=== PATIENT | male | born 1935 | race Caucasian/White ===

== ENCOUNTER 2020-06-20 10:22 | Outpatient (REF) | payer MEDICARE, SELFPAY | END 2020-06-20 10:23 | disposition home or self-care (01) | LOC: HO.LAB 10:22 | PROVIDERS: PCP Family Medicine; Visit Provider Internal Medicine | DX: Z20.828 Contact with and (suspected) exposure to other viral communicable diseases (principal) | CPT/HCPCS: C9803; U0003 ==

== ENCOUNTER → 2020-08-19 13:49 | Outpatient (BNVA) | payer MEDICARE, SELFPAY | PROVIDERS: Visit Provider Orthopaedic Surgery | DX: M25.562 Pain in left knee (principal); M25.561 Pain in right knee | CPT/HCPCS: 20610; 99212; J1040 ==

== ENCOUNTER → 2020-09-02 13:49 | Outpatient (BNVA) | payer MEDICARE, SELFPAY | PROVIDERS: PCP Family Medicine; Visit Provider Orthopaedic Surgery | DX: M25.561 Pain in right knee (principal) | CPT/HCPCS: 20610; 99212; J1040 ==

== ENCOUNTER 2022-08-23 12:19 | Emergency (ER) | payer MEDICARE, SELFPAY ==
--- NOTE | ~2022-08-23 | CT_ITS ---
EXAMINATION: CT HEAD WITHOUT CONTRAST CLINICAL INFORMATION: Dizziness off-and-on since last night COMPARISON: Head CT 12/14/2017 TECHNIQUE: Imaging was performed from the skull base to vertex without intravenous administration of contrast. This CT examination was performed using dose optimization techniques as appropriate, variously including the following: *Automated exposure control *Adjustment of mA and/or kV according to patient size (this includes techniques or standardized protocols for targeted exams where dose is matched to indication/reason for exam; i.e. extremities or head) *Use of iterative reconstruction technique Total exam dose length product: 609 mGy-cm FINDINGS: No intra or extra-axial fluid collection, hemorrhage, or mass. No ventriculomegaly. No midline shift or herniation. Basal cisterns are patent. Dominguez-white matter differentiation is maintained. No territorial encephalomalacia. Proportional prominence of the ventricles and sulcal spaces is consistent with mild volume loss. There is mild nonspecific periventricular white matter hypoattenuation bilaterally. No calvarial fracture or soft tissue abnormality. Partial opacification of a few left mastoid air cells, nonspecific. Right mastoid air cells and paranasal sinuses are normally aerated. CT/CT head/brain wo IV con IMPRESSION: No acute intracranial pathology.
[2022-08-23 12:33] VITALS: BP 145/83; PULSE 99; RESP 18; TEMP 36.6; O2SAT 100; BMI 27.8
--- NOTE | 2022-08-23 12:42 | ECG_ITS ---
Test Reason : DIZZINESS Blood Pressure : / mmHG Vent. Rate : 096 BPM Atrial Rate : 096 BPM P-R Int : 166 ms QRS Dur : 066 ms QT Int : 342 ms P-R-T Axes : 053 001 032 degrees QTc Int : 432 ms Normal sinus rhythm Septal infarct , age undetermined Cannot rule out Inferior infarct , age undetermined Abnormal ECG When compared with ECG of 14-DEC-2017 22:52, Premature atrial complexes are no longer Present Septal infarct is now Present Referred By: Dominic Barrera Electronically Signed By:PETER LOPEZ MD
--- NOTE | 2022-08-23 12:43 | ED_ITS ---
HPI - General Adult General Chief complaint: Dizziness Stated complaint: Ear issues Time Seen by Provider: 08/23/22 17:04 Related Data Home Medications Medication Instructions Recorded Confirmed alcohol swabs (Alcohol Prep Pads) 0 pad topical 04/12/22 amlodipine 5 mg tablet 5 mg PO DAILY 04/12/22 aspirin 81 mg tablet,delayed 81 mg PO DAILY 04/12/22 release atorvastatin 20 mg tablet 20 mg PO DAILY 04/12/22 blood sugar diagnostic (FreeStyle #10 ea 04/12/22 Lite Strips) ferrous sulfate 325 mg (65 mg 325 mg PO DAILY 04/12/22 iron) tablet (FeroSul) imipramine HCl 10 mg tablet 10 mg PO BEDTIME 04/12/22 lancets 33 gauge (TRUEplus Lancets) #100 ea 04/12/22 lisinopril 40 mg tablet 40 mg PO DAILY 04/12/22 metformin 1,000 mg tablet 1,000 mg PO QPM 04/12/22 mirabegron 50 mg tablet,extended 50 mg PO DAILY 04/12/22 release 24 hr (Myrbetriq) omeprazole 20 mg capsule,delayed 20 mg PO DAILY PRN 04/12/22 release oxybutynin chloride 5 mg 5 mg PO BEDTIME 04/12/22 tablet,extended release 24 hr pioglitazone 45 mg tablet 45 mg PO DAILY 04/12/22 Previous Rx's Medication Instructions Recorded meclizine 25 mg tablet 25 mg PO BID PRN dizziness #20 tabs 08/23/22 [id number]-ilsvfs-[id number]-thonzonm 3.3 4 drp otic (ears) TID #10 mL 08/23/22 mg-3 mg-10 mg-0.5 mg/mL ear drops,susp (Cortisporin-TC) Allergies Allergy/AdvReac Type Severity Reaction Status Date / Time oxycodone [From Percocet] AdvReac Mild VOMITING/DI Verified 04/12/22 10:49 MATEUSZ percocet Allergy Unknown nausea/dizz Uncoded 04/12/22 10:49 destiny [facility] Past Medical History Medical History Choledocholithiasis Chronic anemia Diabetes mellitus Diverticulosis HTN (hypertension) Hypercholesterolemia Neurogenic bladder Prostate cancer Renal cyst Tubular adenoma of colon Surgical History H/O prostatectomy History of colonoscopy History of hernia surgery Social History Social History Advance Directives: No Advance Directives Information Provided: No Current occupational status: retired Current occupation: right handed Physical Exam ED Vital Signs: Vital Signs - 24 hr 08/23/22 12:33 Temperature 97.9 F Pulse Rate 99 Respiratory Rate 18 Blood Pressure 145/83 H Pulse Oximetry 100 Oxygen Delivery Method Room Air BMI result Body Mass Index 27.8 Course Course Course Narrative: RME: 86 yold presents to the ED for ringing in both ears with dizziness described as room spinning since last night. patient states having this off and on for the past 4 months. patient states no slurred speech, facial droop, paralysis of extremites. Both Ear exam shows small amount of cerumen besides that is normal. negative for any neuro deficits. negative rhomberg. no ataxia. presently no dizziness. due to age head CT scan, EkG, and labs ordered. Medical Decision Making Lab Data 08/23/22 16:22 08/23/22 16:22 Labs: Lab Results 08/23/22 08/23/22 08/23/22 Range/Units 16:22 16:22 16:22 WBC 8.0 (4.8-10.8) X10*3/uL RBC 4.49 L (4.60-5.80) X10*6/uL Hgb 12.4 L (14.0-18.0) g/dl Hct 37.7 L (42.0-52.0) % MCV 84.0 (80.0-98.0) fL MCH 27.6 (27.0-33.0) pg MCHC 32.9 (31.0-36.0) g/dl RDW 15.6 (11.0-16.0) % Plt Count 241 (160-400) X10*3/uL MPV 10.0 (9.4-12.4) fL Immature Gran % (Auto) 0.3 (0.0-0.4) % Neut % (Auto) 69.2 (45-73) % Lymph % (Auto) 22.9 (20-40) % Saline % (Auto) 7.0 (2-11) % Eos % (Auto) 0.3 (0-4) % Baso % (Auto) 0.3 (0-2) % Lymph # (Auto) 1.8 (1.2-4.9) X10*3/uL Saline # (Auto) 0.6 (0.1-1.2) X10*3/uL Eos # (Auto) 0.0 (0.0-0.4) X10*3/uL Baso # (Auto) 0.0 (0.0-0.2) X10*3/uL Abs Immat Gran (auto) 0.02 (0.00-0.03) X10*3/uL Absolute Neuts (auto) 5.5 (2.0-8.3) x10*3/uL Absolute Nucleated RBC 0.000 (0.0-0.012) X10*3/uL Nucleated RBC % (auto) 0.0 (0.0-0.2) /100WBC PT 10.5 (10.0-13.1) SEC INR 0.9 (0.9-1.1) APTT 31.5 (26.0-36.4) SEC Sodium 142 (135-145) mmol/L Potassium 4.5 (3.3-5.1) mmol/L Chloride 108 (96-108) mmol/L Carbon Dioxide 27 (22-29) mmol/L Anion Gap 12 (12-20) BUN 21 H (9-16) mg/dL Creatinine 1.01 (0.5-1.4) mg/dL Estim Creat Clear Calc 48.2 Estimated GFR > 60 Random Glucose 104 (60-115) mg/dL Calcium 9.4 (8.4-10.2) mg/dL Total Bilirubin 0.9 (0.0-1.0) mg/dL AST 14 (5-37) U/L ALT 12 (0-40) U/L Alkaline Phosphatase 100 (39-117) U/L Troponin I High Sens (<3.5-35.0) ng/L Total Protein 6.6 (6.5-8.0) g/dL Albumin 4.2 (3.5-5.0) g/dL 08/23/22 Range/Units 16:22 WBC (4.8-10.8) X10*3/uL RBC (4.60-5.80) X10*6/uL Hgb (14.0-18.0) g/dl Hct (42.0-52.0) % MCV (80.0-98.0) fL MCH (27.0-33.0) pg MCHC (31.0-36.0) g/dl RDW (11.0-16.0) % Plt Count (160-400) X10*3/uL MPV (9.4-12.4) fL Immature Gran % (Auto) (0.0-0.4) % Neut % (Auto) (45-73) % Lymph % (Auto) (20-40) % Saline % (Auto) (2-11) % Eos % (Auto) (0-4) % Baso % (Auto) (0-2) % Lymph # (Auto) (1.2-4.9) X10*3/uL Saline # (Auto) (0.1-1.2) X10*3/uL Eos # (Auto) (0.0-0.4) X10*3/uL Baso # (Auto) (0.0-0.2) X10*3/uL Abs Immat Gran (auto) (0.00-0.03) X10*3/uL Absolute Neuts (auto) (2.0-8.3) x10*3/uL Absolute Nucleated RBC (0.0-0.012) X10*3/uL Nucleated RBC % (auto) (0.0-0.2) /100WBC PT (10.0-13.1) SEC INR (0.9-1.1) APTT (26.0-36.4) SEC Sodium (135-145) mmol/L Potassium (3.3-5.1) mmol/L Chloride (96-108) mmol/L Carbon Dioxide (22-29) mmol/L Anion Gap (12-20) BUN (9-16) mg/dL Creatinine (0.5-1.4) mg/dL Estim Creat Clear Calc Estimated GFR Random Glucose (60-115) mg/dL Calcium (8.4-10.2) mg/dL Total Bilirubin (0.0-1.0) mg/dL AST (5-37) U/L ALT (0-40) U/L Alkaline Phosphatase (39-117) U/L Troponin I High Sens < 3.5 (<3.5-35.0) ng/L Total Protein (6.5-8.0) g/dL Albumin (3.5-5.0) g/dL Discharge Plan Discharge Clinical Impression: Benign paroxysmal positional vertigo Patient Disposition: Home, Self-Care Instructions: Benign Paroxysmal Positional Vertigo (ED) Additional Instructions: Follow-up with your nose and throat. Call your doctor for follow-up as well. Ear drops are for dryness in your ear canal. The pills are for dizziness Prescriptions: New meclizine 25 mg tablet 25 mg PO BID PRN (Reason: dizziness) Qty: 20 0RF Cortisporin-TC 3.3-3-10-0.5 mg/mL drops,suspension 4 drp otic (ears) TID Qty: 10 0RF No Action imipramine HCl 10 mg tablet 10 mg PO BEDTIME aspirin 81 mg tablet,delayed release (DR/EC) 81 mg PO DAILY amlodipine 5 mg tablet 5 mg PO DAILY (DME) lancets [TRUEplus Lancets] 33 gauge misc See Rx Instructions .ROUTE .MEDSUPPLY Qty: 100 Rx Instructions: As directed alcohol swabs [Alcohol Prep Pads] Pads, Medicated 0 pad topical (DME) FreeStyle Lite Strips Strip See Rx Instructions .ROUTE .MEDSUPPLY Qty: 10 Rx Instructions: As directed atorvastatin 20 mg tablet 20 mg PO DAILY omeprazole 20 mg capsule,delayed release(DR/EC) 20 mg PO DAILY PRN metformin 1,000 mg tablet 1,000 mg PO QPM ferrous sulfate [FeroSul] 325 mg (65 mg iron) tablet 325 mg PO DAILY pioglitazone 45 mg tablet 45 mg PO DAILY lisinopril 40 mg tablet 40 mg PO DAILY Myrbetriq 50 mg tablet extended release 24 hr 50 mg PO DAILY oxybutynin chloride 5 mg tablet extended release 24hr 5 mg PO BEDTIME Referrals: Jossue Morales MD [Physician] - Interventions: ED Discharge Assessment Last Done: 08/23/22 17:38 Discharge Date/Time: 08/23/22 17:40
--- NOTE | 2022-08-23 13:44 | MHC.EDTECH ---
covering tech break in triage. EKG completed at this time
[2022-08-23 16:31] LABS: MANUAL DIFF FLAG NO
[2022-08-23 16:36] LABS: Basophils Percent Auto 0.3 % (0-2); Eosinophils Percent Auto 0.3 % (0-4); Hematocrit 37.7 % (42.0-52.0); Hemoglobin 12.4 g/dl (14.0-18.0); Imm Gran Abs Auto 0.02 X10*3/uL (0.00-0.03); Imm Gran Pct Auto 0.3 % (0.0-0.4); Lymphocytes Absolute Auto 1.8 X10*3/uL (1.2-4.9); Lymphocytes Percent Auto 22.9 % (20-40); Mean Corpuscular HGB Conc 32.9 g/dl (31.0-36.0); Mean Corpuscular Hemoglobin 27.6 pg (27.0-33.0); Monocytes Absolute Auto 0.6 X10*3/uL (0.1-1.2); Neutrophils Absolute Auto 5.5 x10*3/uL (2.0-8.3); Neutrophils Percent Auto 69.2 % (45-73); Platelet Count 241 X10*3/uL (160-400); Red Blood Count 4.49 X10*6/uL (4.60-5.80); Red Cell Distribution Width 15.6 % (11.0-16.0)
[2022-08-23 16:43] LABS: INTERNATIONAL NORM RATIO 0.9 (0.9-1.1); Prothrombin Time 10.5 SEC (10.0-13.1)
[2022-08-23 16:46] LABS: Partial Thromboplastin Time 31.5 SEC (26.0-36.4)
[2022-08-23 16:52] LABS: Alanine Aminotransferase 12 U/L (0-40); Albumin Level 4.2 g/dL (3.5-5.0); Alkaline Phosphatase 100 U/L (39-117); Anion Gap 12 (12-20); Aspartate Amino Transferase 14 U/L (5-37); Bilirubin Total 0.9 mg/dL (0.0-1.0); Blood Urea Nitrogen 21 mg/dL (9-16); Calcium 9.4 mg/dL (8.4-10.2); Carbon Dioxide 27 mmol/L (22-29); Chloride 108 mmol/L (96-108); Creatinine Clr Calc Pharmacy 48.2; Estimated Glomerular Filt Rate > 60; Glucose Random 104 mg/dL (60-115); Potassium 4.5 mmol/L (3.3-5.1); Sodium 142 mmol/L (135-145); Total Protein 6.6 g/dL (6.5-8.0)
[2022-08-23 17:02] LABS: Troponin-I High Sensitivity < 3.5 ng/L (<3.5-35.0)
--- NOTE | 2022-08-23 17:22 | ED.DIZZY ---
HPI - Dizziness General Chief Complaint: Dizziness Stated Complaint: Ear issues Time Seen by Provider: 08/23/22 17:04 Source: patient and old records reviewed Limitations: no limitations History of Present Illness HPI Narrative: Patient complaining of dizziness. He states currently is asymptomatic but this morning he felt very dizzy. He describes it is the world spinning. Very off balance. No nausea associated with this. He does hear pulsating in both ears when it happens. He believes it all started intermittently a year and a half ago. At that time he said a small insect crawl into his left ear. He went to the ER in [place] and they removed it. Since that time he occasionally gets the symptoms. He has seen specialists in the past, not around here, who prescribed ear drops which seemed to have helped. He does not have any of those medications now. He lives in [place] now he goes to [facility]. He does not have an ear nose and throat physician. No headache. No history of stroke. History of hypertension and diabetes however. Related Data Home Medications Medication Instructions Recorded Confirmed alcohol swabs (Alcohol Prep Pads) 0 pad topical 04/12/22 amlodipine 5 mg tablet 5 mg PO DAILY 04/12/22 aspirin 81 mg tablet,delayed 81 mg PO DAILY 04/12/22 release atorvastatin 20 mg tablet 20 mg PO DAILY 04/12/22 blood sugar diagnostic (FreeStyle #10 ea 04/12/22 Lite Strips) ferrous sulfate 325 mg (65 mg 325 mg PO DAILY 04/12/22 iron) tablet (FeroSul) imipramine HCl 10 mg tablet 10 mg PO BEDTIME 04/12/22 lancets 33 gauge (TRUEplus Lancets) #100 ea 04/12/22 lisinopril 40 mg tablet 40 mg PO DAILY 04/12/22 metformin 1,000 mg tablet 1,000 mg PO QPM 04/12/22 mirabegron 50 mg tablet,extended 50 mg PO DAILY 04/12/22 release 24 hr (Myrbetriq) omeprazole 20 mg capsule,delayed 20 mg PO DAILY PRN 04/12/22 release oxybutynin chloride 5 mg 5 mg PO BEDTIME 04/12/22 tablet,extended release 24 hr pioglitazone 45 mg tablet 45 mg PO DAILY 04/12/22 Previous Rx's Medication Instructions Recorded meclizine 25 mg tablet 25 mg PO BID PRN dizziness #20 tabs 08/23/22 zyuppopa-[id number]-[id number]-thonzonm 3.3 4 drp otic (ears) TID #10 mL 08/23/22 mg-3 mg-10 mg-0.5 mg/mL ear drops,susp (Cortisporin-TC) Allergies Allergy/AdvReac Type Severity Reaction Status Date / Time oxycodone [From Percocet] AdvReac Mild VOMITING/DI Verified 04/12/22 10:49 MATEUSZ percocet Allergy Unknown nausea/dizz Uncoded 04/12/22 10:49 iness Review of Systems Constitutional: Comments: No recent fevers chills or illnesses Eyes: Comments: No vision changes ENT: Comments: No ear pain but he does have pulsing in his ears when he feels dizzy. None now Cardiovascular: Comments: No chest pain Respiratory: Comments: No dyspnea or cough Gastrointestinal: Comments: No nausea associated with his dizziness Neurologic: Comments: No focal weaknesses PMFSH Past Medical History Medical History Choledocholithiasis Chronic anemia Diabetes mellitus Diverticulosis HTN (hypertension) Hypercholesterolemia Neurogenic bladder Prostate cancer Renal cyst Tubular adenoma of colon Surgical History H/O prostatectomy History of colonoscopy History of hernia surgery Social History Social History Advance Directives: No Advance Directives Information Provided: No Current occupational status: retired Current occupation: right handed Physical Exam Vital Signs: Vital Signs: Last Vital Signs Temp 97.9 F 08/23/22 12:33 Pulse 99 08/23/22 12:33 Resp 18 08/23/22 12:33 BP 145/83 H 08/23/22 12:33 Pulse Ox 100 08/23/22 12:33 O2 Del Method 08/23/22 12:33 BMI result Body Mass Index 27.8 Const: Other: Awake alert. No acute distress. Ambulates without difficulty. HEENT: Other: Normocephalic atraumatic. Bilateral TMs are normal. Left ear canal with mild excoriations and dry skin. No obvious infection, otitis externa however. Eyes: Other: Pupils equal round reactive to light. Extraocular muscles intact. No nystagmus on lateral gaze Neck: Other: Full range of motion. No dizziness at this time with head movement Resp: Other: Clear and equal bilaterally without wheezes rales or rhonchi Cardio: Other: Regular rate and rhythm without murmurs rubs or gallops GI: Other: Soft nontender nondistended Skin: Other: Warm pink and dry without rash Neuro: Other: Ambulates without difficulty. Wkhgdz-dn-[id number] exam is intact. Mild Babinski's with feet together. Feels off-balance but does not stagger Medical Decision Making Medical Decision Making MDM Narrative: Patient with dizziness consistent with vertigo. Although peripheral vertigo most likely, especially with associated ear symptoms, he is certainly at risk for central cause given age, diabetes, hypertension. Will review full workup. 17:27. CT scan is normal. Labs are unremarkable. EKG without evidence of dysrhythmia or acute ischemia Given history, I think it is safe for him to go home with peripheral vertigo treatment. PCP and ENT follow-up. Lab Data 08/23/22 16:22 08/23/22 16:22 Labs: Lab Results 08/23/22 08/23/22 08/23/22 Range/Units 16:22 16:22 16:22 WBC 8.0 (4.8-10.8) X10*3/uL RBC 4.49 L (4.60-5.80) X10*6/uL Hgb 12.4 L (14.0-18.0) g/dl Hct 37.7 L (42.0-52.0) % MCV 84.0 (80.0-98.0) fL MCH 27.6 (27.0-33.0) pg MCHC 32.9 (31.0-36.0) g/dl RDW 15.6 (11.0-16.0) % Plt Count 241 (160-400) X10*3/uL MPV 10.0 (9.4-12.4) fL Immature Gran % (Auto) 0.3 (0.0-0.4) % Neut % (Auto) 69.2 (45-73) % Lymph % (Auto) 22.9 (20-40) % Hanson % (Auto) 7.0 (2-11) % Eos % (Auto) 0.3 (0-4) % Baso % (Auto) 0.3 (0-2) % Lymph # (Auto) 1.8 (1.2-4.9) X10*3/uL Hanson # (Auto) 0.6 (0.1-1.2) X10*3/uL Eos # (Auto) 0.0 (0.0-0.4) X10*3/uL Baso # (Auto) 0.0 (0.0-0.2) X10*3/uL Abs Immat Gran (auto) 0.02 (0.00-0.03) X10*3/uL Absolute Neuts (auto) 5.5 (2.0-8.3) x10*3/uL Absolute Nucleated RBC 0.000 (0.0-0.012) X10*3/uL Nucleated RBC % (auto) 0.0 (0.0-0.2) /100WBC PT 10.5 (10.0-13.1) SEC INR 0.9 (0.9-1.1) APTT 31.5 (26.0-36.4) SEC Sodium 142 (135-145) mmol/L Potassium 4.5 (3.3-5.1) mmol/L Chloride 108 (96-108) mmol/L Carbon Dioxide 27 (22-29) mmol/L Anion Gap 12 (12-20) BUN 21 H (9-16) mg/dL Creatinine 1.01 (0.5-1.4) mg/dL Estim Creat Clear Calc 48.2 Estimated GFR > 60 Random Glucose 104 (60-115) mg/dL Calcium 9.4 (8.4-10.2) mg/dL Total Bilirubin 0.9 (0.0-1.0) mg/dL AST 14 (5-37) U/L ALT 12 (0-40) U/L Alkaline Phosphatase 100 (39-117) U/L Troponin I High Sens (<3.5-35.0) ng/L Total Protein 6.6 (6.5-8.0) g/dL Albumin 4.2 (3.5-5.0) g/dL 08/23/22 Range/Units 16:22 WBC (4.8-10.8) X10*3/uL RBC (4.60-5.80) X10*6/uL Hgb (14.0-18.0) g/dl Hct (42.0-52.0) % MCV (80.0-98.0) fL MCH (27.0-33.0) pg MCHC (31.0-36.0) g/dl RDW (11.0-16.0) % Plt Count (160-400) X10*3/uL MPV (9.4-12.4) fL Immature Gran % (Auto) (0.0-0.4) % Neut % (Auto) (45-73) % Lymph % (Auto) (20-40) % Hanson % (Auto) (2-11) % Eos % (Auto) (0-4) % Baso % (Auto) (0-2) % Lymph # (Auto) (1.2-4.9) X10*3/uL Hanson # (Auto) (0.1-1.2) X10*3/uL Eos # (Auto) (0.0-0.4) X10*3/uL Baso # (Auto) (0.0-0.2) X10*3/uL Abs Immat Gran (auto) (0.00-0.03) X10*3/uL Absolute Neuts (auto) (2.0-8.3) x10*3/uL Absolute Nucleated RBC (0.0-0.012) X10*3/uL Nucleated RBC % (auto) (0.0-0.2) /100WBC PT (10.0-13.1) SEC INR (0.9-1.1) APTT (26.0-36.4) SEC Sodium (135-145) mmol/L Potassium (3.3-5.1) mmol/L Chloride (96-108) mmol/L Carbon Dioxide (22-29) mmol/L Anion Gap (12-20) BUN (9-16) mg/dL Creatinine (0.5-1.4) mg/dL Estim Creat Clear Calc Estimated GFR Random Glucose (60-115) mg/dL Calcium (8.4-10.2) mg/dL Total Bilirubin (0.0-1.0) mg/dL AST (5-37) U/L ALT (0-40) U/L Alkaline Phosphatase (39-117) U/L Troponin I High Sens < 3.5 (<3.5-35.0) ng/L Total Protein (6.5-8.0) g/dL Albumin (3.5-5.0) g/dL Discharge Plan Discharge Clinical Impression: Benign paroxysmal positional vertigo Patient Disposition: Home, Self-Care Instructions: Benign Paroxysmal Positional Vertigo (ED) Additional Instructions: Follow-up with your nose and throat. Call your doctor for follow-up as well. Ear drops are for dryness in your ear canal. The pills are for dizziness Prescriptions: New meclizine 25 mg tablet 25 mg PO BID PRN (Reason: dizziness) Qty: 20 0RF Cortisporin-TC 3.3-3-10-0.5 mg/mL drops,suspension 4 drp otic (ears) TID Qty: 10 0RF No Action imipramine HCl 10 mg tablet 10 mg PO BEDTIME aspirin 81 mg tablet,delayed release (DR/EC) 81 mg PO DAILY amlodipine 5 mg tablet 5 mg PO DAILY (DME) lancets [TRUEplus Lancets] 33 gauge misc See Rx Instructions .ROUTE .MEDSUPPLY Qty: 100 Rx Instructions: As directed alcohol swabs [Alcohol Prep Pads] Pads, Medicated 0 pad topical (DME) FreeStyle Lite Strips Strip See Rx Instructions .ROUTE .MEDSUPPLY Qty: 10 Rx Instructions: As directed atorvastatin 20 mg tablet 20 mg PO DAILY omeprazole 20 mg capsule,delayed release(DR/EC) 20 mg PO DAILY PRN metformin 1,000 mg tablet 1,000 mg PO QPM ferrous sulfate [FeroSul] 325 mg (65 mg iron) tablet 325 mg PO DAILY pioglitazone 45 mg tablet 45 mg PO DAILY lisinopril 40 mg tablet 40 mg PO DAILY Myrbetriq 50 mg tablet extended release 24 hr 50 mg PO DAILY oxybutynin chloride 5 mg tablet extended release 24hr 5 mg PO BEDTIME Referrals: Jossue Morales MD [Physician] -
== END 2022-08-23 17:40 | disposition home or self-care (01) ==
PROVIDERS: Physician Assistant; Emergency Provider Emergency Medicine; PCP Family Medicine
DX: H81.10 Benign paroxysmal vertigo, unspecified ear (principal); H60.92 Unspecified otitis externa, left ear; I10 Essential (primary) hypertension; E11.9 Type 2 diabetes mellitus without complications; E78.5 Hyperlipidemia, unspecified; D64.9 Anemia, unspecified; Z79.82 Long term (current) use of aspirin; Z79.02 Long term (current) use of antithrombotics/antiplatelets; Z79.899 Other long term (current) drug therapy; Z79.84 Long term (current) use of oral hypoglycemic drugs; Z85.46 Personal history of malignant neoplasm of prostate
CPT/HCPCS: 36415; 70450; 80053; 84484; 85025; 85610; 85730; 93005; 99283; 99284

== ENCOUNTER 2022-11-03 12:52 | Emergency (ER) | payer MEDICARE, SELFPAY ==
--- NOTE | ~2022-11-03 | CT_ITS ---
EXAMINATION: CT ABDOMEN AND PELVIS WITHOUT CONTRAST CLINICAL INFORMATION: Pain of right lower abdomen. COMPARISON: 08/13/2015 TECHNIQUE: Multidetector volumetric imaging was performed from the superior aspect of the liver through the pubic symphysis. Sagittal and coronal reformatted images were obtained on the technologist's workstation. This CT examination was performed using dose optimization techniques as appropriate, variously including the following: *Automated exposure control *Adjustment of mA and/or kV according to patient size (this includes techniques or standardized protocols for targeted exams where dose is matched to indication/reason for exam; i.e. extremities or head) *Use of iterative reconstruction technique DLP: 479 mGy-cm FINDINGS: LUNG BASES: Mild respiratory motion on images the bases. The bronchial ramirez appear to be mildly thickened within lower lobes. No pulmonary consolidation or pleural effusion. LIVER: The liver has normal size, shape, and attenuation. No evidence of liver mass. GALLBLADDER AND BILIARY TREE: Gallbladder is surgically absent. No dilated bile ducts. PANCREAS: Mildly atrophied. There is subtle haziness of fat adjacent to the inferior pancreatic head and this observation is too subtle for any confident imaging diagnosis of pancreatitis. Pancreatitis is considered unlikely. However, there is any epigastric pain, consider correlation with lipase levels. Minimal edema is seen in other areas of abdominal fat, and there is trace free fluid in the pelvis. SPLEEN: Normal. ADRENAL GLANDS: Normal. KIDNEYS AND URETERS: Kidneys are normal in size. No renal stones or hydronephrosis. 2.2 cm simple cyst of the left kidney. No renal imaging follow-up is recommended for a simple cyst. The ureters are unremarkable. There is mild edema of perinephric fat. BLADDER: Urinary bladder is empty and grossly normal. No bladder stones. BOWEL AND PERITONEUM: No dilated loops of bowel. No evidence of edematous thickening of bowel ramirez. The appendix is normal. Multiple diverticula of the descending and sigmoid colon. However, no thick-walled diverticulum or focal pericolonic fat stranding is identified. No pneumoperitoneum. ABDOMINAL WALL: Unremarkable. VASCULATURE: Atherosclerosis of the abdominal aorta without aneurysm. LYMPH NODES: No pathologic sized lymph nodes in the abdomen or pelvis. No inguinal lymphadenopathy. PELVIC VISCERA: Status post prostatectomy. Multiple surgical clips are present within the pelvis. Trace amount of simple-appearing free fluid is present within the lower pelvis. MUSCULOSKELETAL: Bones appear to be diffusely osteoporotic. There is an old compression fracture of L3 vertebral body which exhibits approximately 40% anterior height loss and the compression deformity of the inferior endplate has worsened compared to 11/01/2018. There is moderate disc degenerative change with vacuum disc phenomenon at L5-S1. No suspicious bone lesions. CT/CT abdomen pelvis wo IV con IMPRESSION: * No specific source of right lower quadrant pain is identified. The appendix is normal. * Colonic diverticulosis without evidence of acute diverticulitis. * No renal stones or hydronephrosis. * Other findings include regions of subtle haziness of intraperitoneal fat, mild perinephric edema, and trace free fluid in the pelvis. Also, there is subtle haziness of retroperitoneal fat adjacent to the inferior pancreatic head. The cause of the fat haziness and trace free fluid is uncertain. The patient does not appear to be in congestive heart failure. No edematous changes within subcutaneous tissue or pleural effusions to overtly suggest anasarca.
[2022-11-03 12:56] VITALS: BP 138/65; PULSE 103; RESP 18; TEMP 36.1; O2SAT 97; BMI 28.3
--- NOTE | 2022-11-03 13:00 | ED.ABDPAIN ---
HPI - Abdominal Pain General Chief Complaint: Abdominal Pain <Nelly Thompson NP - Last Filed: 11/03/22 13:03> Stated Complaint: R side/abd pain <Nelly Thompson NP - Last Filed: 11/03/22 13:03> Time Seen by Provider: 11/03/22 14:25 <Nelly Thompson NP - Last Filed: 11/03/22 13:03> Source: patient <TELMA Dfufy - Last Filed: 11/03/22 16:25> Mode of arrival: ambulatory <TELMA Duffy Last Filed: 11/03/22 16:25> Limitations: no limitations <TELMA Duffy Last Filed: 11/03/22 16:25> History of Present Illness HPI narrative: 86-year-old male with a history of prostate cancer, neurogenic bladder, recently diagnosed UTI last week started on Keflex who presents to the ER for evaluation of right lower quadrant pain, intermittent for the last couple of days. Patient states that he 1st had the pain when he took the Keflex. He thought the pain was directly related to the antibiotic so he stopped taking the antibiotic. He states the pain in the right lower quadrant is worse with movement it is intermittent. He was recently constipated and also thinks the pain may be related to that. He took laxatives and had 4 good bowel movement since then. He denies any fevers. No vomiting. <TELMA Duffy - Last Filed: 11/03/22 16:25> MD elicited complaint: abdominal pain <TELMA Duffy Last Filed: 11/03/22 16:25> Pertinent past history: past UTI <TELMA Duffy Last Filed: 11/03/22 16:25> Onset (ago): day(s) <TELMA Duffy Last Filed: 11/03/22 16:25> Pain Consistency: constant <TELMA Duffy Last Filed: 11/03/22 16:25> Location: RLQ <TEMLA Duffy Last Filed: 11/03/22 16:25> Severity: moderate <TELMA Duffy Last Filed: 11/03/22 16:25> Quality: aching <TELMA Duffy - Last Filed: 11/03/22 16:25> Radiation: none <TELMA Duffy - Last Filed: 11/03/22 16:25> Migration to: no migration <TELMA Duffy - Last Filed: 11/03/22 16:25> Exacerbating factors: movement <TELMA Duffy - Last Filed: 11/03/22 16:25> Context: history of similar episodes <TELMA Duffy - Last Filed: 11/03/22 16:25> Associated symptoms: constipation <TELMA Duffy - Last Filed: 11/03/22 16:25> Related Data Home Medications: Home Medications Medication Instructions Recorded Confirmed alcohol swabs (Alcohol Prep Pads) 0 pad topical 04/12/22 amlodipine 5 mg tablet 5 mg PO DAILY 04/12/22 aspirin 81 mg tablet,delayed 81 mg PO DAILY 04/12/22 release atorvastatin 20 mg tablet 20 mg PO DAILY 04/12/22 blood sugar diagnostic (FreeStyle #10 ea 04/12/22 Lite Strips) ferrous sulfate 325 mg (65 mg 325 mg PO DAILY 04/12/22 iron) tablet (FeroSul) imipramine HCl 10 mg tablet 10 mg PO BEDTIME 04/12/22 lancets 33 gauge (TRUEplus Lancets) #100 ea 04/12/22 lisinopril 40 mg tablet 40 mg PO DAILY 04/12/22 metformin 1,000 mg tablet 1,000 mg PO QPM 04/12/22 mirabegron 50 mg tablet,extended 50 mg PO DAILY 04/12/22 release 24 hr (Myrbetriq) omeprazole 20 mg capsule,delayed 20 mg PO DAILY PRN 04/12/22 release oxybutynin chloride 5 mg 5 mg PO BEDTIME 04/12/22 tablet,extended release 24 hr pioglitazone 45 mg tablet 45 mg PO DAILY 04/12/22 Previous Rx's Medication Instructions Recorded meclizine 25 mg tablet 25 mg PO BID PRN dizziness #20 tabs 08/23/22 [id number] 3.3 4 drp otic (ears) TID #10 mL 08/23/22 mg-3 mg-10 mg-0.5 mg/mL ear drops,susp (Cortisporin-TC) cefuroxime axetil 250 mg tablet 250 mg PO Q12H 10 days #20 tabs 11/03/22 <Nelly Thompson NP - Last Filed: 11/03/22 13:03> Allergies/Adverse Reactions: Allergies Allergy/AdvReac Type Severity Reaction Status Date / Time oxycodone [From Percocet] AdvReac Mild VOMITING/DI Verified 11/03/22 13:05 ZZINES percocet Allergy Unknown nausea/dizz Uncoded 04/12/22 10:49 iness <Nelly Thompson NP - Last Filed: 11/03/22 13:03> Review of Systems Review of Systems Yes Unobtainable due to mental status <TELMA Duffy - Last Filed: 11/03/22 16:25> PENDING SALE TO [facility] Past Medical History Medical History: Medical History Choledocholithiasis Chronic anemia Diabetes mellitus Diverticulosis HTN (hypertension) Hypercholesterolemia Neurogenic bladder Prostate cancer Renal cyst Tubular adenoma of colon <Nelly Thompson NP - Last Filed: 11/03/22 13:03> Surgical History: Surgical History H/O prostatectomy History of colonoscopy History of hernia surgery <Nelly Thompson NP - Last Filed: 11/03/22 13:03> Social History Social History: Social History Alcohol intake: never Smoked in Last 30 Days: No Use of substances other than those prescribed or required for medical reasons: No Advance Directives: No Advance Directives Information Provided: Yes Current occupational status: retired Current occupation: right handed <Nelly Thompson NP - Last Filed: 11/03/22 13:03> Physical Exam ED Vital Signs: Vital Signs - 24 hr 11/03/22 12:56 11/03/22 14:00 Temperature 97.0 F Pulse Rate 103 H 99 Respiratory Rate 18 18 Blood Pressure 138/65 128/71 Pulse Oximetry 97 99 Oxygen Delivery Method Room Air Room Air BMI result Body Mass Index 28.3 <Nelly Thompson NP - Last Filed: 11/03/22 13:03> Vital Signs - 24 hr 11/03/22 12:56 11/03/22 14:00 Temperature 97.0 F Pulse Rate 103 H 99 Respiratory Rate 18 18 Blood Pressure 138/65 128/71 Pulse Oximetry 97 99 Oxygen Delivery Method Room Air Room Air BMI result Body Mass Index 28.3 <TELMA Duffy - Last Filed: 11/03/22 16:25> Appearance: Alert. Oriented X3. No acute distress. Head: normocephalic, atraumatic. Eyes: Pupils equal, round and reactive to light. ENT: Pharynx normal. No tonsillar swelling or exudate. Neck: Normal inspection. Neck supple. CVS: Normal heart rate and rhythm. Pulses normal. Respiratory: No respiratory distress. Breath sounds normal. Abdomen: Softly distended and nontender. +BS x4. No CVA tenderness Skin: Skin warm and dry. Normal skin color. Normal skin turgor. No rashes. Extremities: No lower extremity edema. No joint swelling. Neuro/psych: Oriented X 3. No motor deficit. No sensory deficit. CN II-XII intact. Normal speech and cognition. <TELMA Duffy - Last Filed: 11/03/22 16:25> Course Course Course Narrative: This is a rapid medical exam. Deferred additional HPI, ROS, PE to primary provider. 86 yo male with history of HTN, HLD, NIDDM, GERD currently on cephalexin for a UTI here with worsened right sided abdominal pain, continued urinary symptoms. WIll obtain labs, UA. <Nelly Thompson NP - Last Filed: 11/03/22 13:03> Medical Decision Making Medical Decision Making MDM Narrative: 86-year-old male presents to the ER for evaluation of intermittent right lower quadrant pain in the setting of a recently diagnosed UTI. He admits to medication noncompliance due to pain in the right lower quadrant that he sings was attributed to the antibiotic. On arrival to the ER he is afebrile. He has no current pain. His urinalysis is positive for infection. He has no leukocytosis. CT scan does not show any evidence of appendicitis or obstructing kidney stone. His pain in the areas unlikely to be related to Keflex. Most likely constipation related. Will DC the Keflex and start him on another antibiotic, although do not think this is an adverse reaction to cephalosporins. Stable for discharge home with oral antibiotics and outpatient follow-up. <TELMA Duffy - Last Filed: 11/03/22 16:25> Differential Diagnosis Differential Diagnoses: The differential diagnosis associated with the presentation includes <TELMA Duffy - Last Filed: 11/03/22 16:25> UTI, pyelonephritis, obstructing kidney stone, appendicitis <TELMA Duffy - Last Filed: 11/03/22 16:25> Lab Data MDM Lab Attestation statement: I reviewed the patient's lab results. <TELMA Duffy - Last Filed: 11/03/22 16:25> no leukocytosis, normal renal function <TELMA Duffy - Last Filed: 11/03/22 16:25> Result Diagrams: 11/03/22 13:08 11/03/22 13:08 <Nelly Thompson NP - Last Filed: 11/03/22 13:03> Labs: Lab Results 11/03/22 11/03/22 11/03/22 Range/Units 13:08 13:08 14:32 WBC 7.0 (4.8-10.8) X10*3/uL RBC 4.11 L (4.60-5.80) X10*6/uL Hgb 11.5 L (14.0-18.0) g/dl Hct 35.7 L (42.0-52.0) % MCV 86.9 (80.0-98.0) fL MCH 28.0 (27.0-33.0) pg MCHC 32.2 (31.0-36.0) g/dl RDW 15.9 (11.0-16.0) % Plt Count 252 (160-400) X10*3/uL MPV 10.2 (9.4-12.4) fL Immature Gran % (Auto) 0.4 (0.0-0.4) % Neut % (Auto) 68.7 (45-73) % Lymph % (Auto) 20.1 (20-40) % [place] % (Auto) 8.9 (2-11) % Eos % (Auto) 1.3 (0-4) % Baso % (Auto) 0.6 (0-2) % Lymph # (Auto) 1.4 (1.2-4.9) X10*3/uL [place] # (Auto) 0.6 (0.1-1.2) X10*3/uL Eos # (Auto) 0.1 (0.0-0.4) X10*3/uL Baso # (Auto) 0.0 (0.0-0.2) X10*3/uL Abs Immat Gran (auto) 0.03 (0.00-0.03) X10*3/uL Absolute Neuts (auto) 4.8 (2.0-8.3) x10*3/uL Absolute Nucleated RBC 0.000 (0.0-0.012) X10*3/uL Nucleated RBC % (auto) 0.0 (0.0-0.2) /100WBC Sodium 139 (135-145) mmol/L Potassium 5.0 (3.3-5.1) mmol/L Chloride 107 (96-108) mmol/L Carbon Dioxide 26 (22-29) mmol/L Anion Gap 11 L (12-20) BUN 29 H (9-16) mg/dL Creatinine 1.33 (0.5-1.4) mg/dL Estim Creat Clear Calc 36.9 Estimated GFR 51 Random Glucose 243 H (60-115) mg/dL Calcium 8.8 D (8.4-10.2) mg/dL Total Bilirubin 0.8 (0.0-1.0) mg/dL Direct Bilirubin 0.2 (0.0-0.5) mg/dL AST 14 (5-37) U/L ALT 10 (0-40) U/L Alkaline Phosphatase 98 (39-117) U/L Total Protein 6.4 L (6.5-8.0) g/dL Albumin 3.9 (3.5-5.0) g/dL Urine Color Yellow Urine Appearance Clear Urine pH 5.5 (5.0-9.0) Ur Specific [place] 1.020 (1.005-1.025) Urine Protein Negative (Neg-Trace) mg/dL Urine Glucose (UA) Negative (Negative) mg/dL Urine Ketones Negative (Negative) mg/dL Urine Blood Negative (Negative) Urine Nitrite Positive H (Negative) Ur Leukocyte Esterase Small (1+) H (Negative) Urine RBC 0-2 (0-2) /HPF Urine WBC 11-20 H (0-5) /HPF Ur Squamous Epith Cells 0-2 (0-2) /HPF Urine Bacteria 4+ (None Seen) Hyaline Casts 0-2 (0-2) /LPF <Nelly Thompson, PAPER SALES MANAGER - Last Filed: 11/03/22 13:03> Lab Results 11/03/22 11/03/22 11/03/22 Range/Units 13:08 13:08 14:32 WBC 7.0 (4.8-10.8) X10*3/uL RBC 4.11 L (4.60-5.80) X10*6/uL Hgb 11.5 L (14.0-18.0) g/dl Hct 35.7 L (42.0-52.0) % MCV 86.9 (80.0-98.0) fL MCH 28.0 (27.0-33.0) pg MCHC 32.2 (31.0-36.0) g/dl RDW 15.9 (11.0-16.0) % Plt Count 252 (160-400) X10*3/uL MPV 10.2 (9.4-12.4) fL Immature Gran % (Auto) 0.4 (0.0-0.4) % Neut % (Auto) 68.7 (45-73) % Lymph % (Auto) 20.1 (20-40) % [place] % (Auto) 8.9 (2-11) % Eos % (Auto) 1.3 (0-4) % Baso % (Auto) 0.6 (0-2) % Lymph # (Auto) 1.4 (1.2-4.9) X10*3/uL [place] # (Auto) 0.6 (0.1-1.2) X10*3/uL Eos # (Auto) 0.1 (0.0-0.4) X10*3/uL Baso # (Auto) 0.0 (0.0-0.2) X10*3/uL Abs Immat Gran (auto) 0.03 (0.00-0.03) X10*3/uL Absolute Neuts (auto) 4.8 (2.0-8.3) x10*3/uL Absolute Nucleated RBC 0.000 (0.0-0.012) X10*3/uL Nucleated RBC % (auto) 0.0 (0.0-0.2) /100WBC Sodium 139 (135-145) mmol/L Potassium 5.0 (3.3-5.1) mmol/L Chloride 107 (96-108) mmol/L Carbon Dioxide 26 (22-29) mmol/L Anion Gap 11 L (12-20) BUN 29 H (9-16) mg/dL Creatinine 1.33 (0.5-1.4) mg/dL Estim Creat Clear Calc 36.9 Estimated GFR 51 Random Glucose 243 H (60-115) mg/dL Calcium 8.8 D (8.4-10.2) mg/dL Total Bilirubin 0.8 (0.0-1.0) mg/dL Direct Bilirubin 0.2 (0.0-0.5) mg/dL AST 14 (5-37) U/L ALT 10 (0-40) U/L Alkaline Phosphatase 98 (39-117) U/L Total Protein 6.4 L (6.5-8.0) g/dL Albumin 3.9 (3.5-5.0) g/dL Urine Color Yellow Urine Appearance Clear Urine pH 5.5 (5.0-9.0) Ur Specific [place] 1.020 (1.005-1.025) Urine Protein Negative (Neg-Trace) mg/dL Urine Glucose (UA) Negative (Negative) mg/dL Urine Ketones Negative (Negative) mg/dL Urine Blood Negative (Negative) Urine Nitrite Positive H (Negative) Ur Leukocyte Esterase Small (1+) H (Negative) Urine RBC 0-2 (0-2) /HPF Urine WBC 11-20 H (0-5) /HPF Ur Squamous Epith Cells 0-2 (0-2) /HPF Urine Bacteria 4+ (None Seen) Hyaline Casts 0-2 (0-2) /LPF <TELMA Duffy - Last Filed: 11/03/22 16:25> Independent Interpretation I performed an independent interpretation of an: CT Scan <TELMA Duffy - Last Filed: 11/03/22 16:25> Interpretation: no obstructing kidney stone seen, no evidence of appendicitis, agrees radiologist read <TELMA Duffy Last Filed: 11/03/22 16:25> Radiology Impression Discussion of test interpretation with radiology: I have reviewed the radiologist's reading. <TELMA Duffy Last Filed: 11/03/22 16:25> Radiologist Impression: CT/CT abdomen pelvis wo IV con IMPRESSION: *? No specific source of right lower quadrant pain is identified. The appendix is normal. *? Colonic diverticulosis without evidence of acute diverticulitis. *? No renal stones or hydronephrosis. *? Other findings include regions of subtle haziness of intraperitoneal fat, mild perinephric edema, and trace free fluid in the pelvis. Also, there is subtle haziness of retroperitoneal fat adjacent to the inferior pancreatic head. The cause of the fat haziness and trace free fluid is uncertain. The patient does not appear to be in congestive heart failure. No edematous changes within subcutaneous tissue or pleural effusions to overtly suggest anasarca. <TELMA Duffy - Last Filed: 11/03/22 16:25> External Record Review External record reviewed: Outpatient record, Prior outpatient labs and Prior outpatient radiology <TELMA Duffy Last Filed: 11/03/22 16:25> Prescription Management I considered prescription management with: Pain Medication and Antibiotic <TELMA Duffy Last Filed: 11/03/22 16:25> Chronic Conditions Patient?s care impacted by: Other <TELMA Duffy Last Filed: 11/03/22 16:25> Critical Care Time Critical Care Time Critical Care Time: No <TELMA Duffy Last Filed: 11/03/22 16:25> Discharge Plan Discharge Clinical Impression: Acute UTI <Nelly Thompson NP - Last Filed: 11/03/22 13:03> Patient Disposition: Home, Self-Care <Nelly Thompson NP - Last Filed: 11/03/22 13:03> Instructions: Urinary Tract Infection in Men (DC) <DESEAN Bruner Last Filed: 11/03/22 13:03> Additional Instructions: Your urine test showed infection. Your CT scan was unremarkable. Take the prescribed antibiotic as directed, complete the entire course and do not miss any doses. Drink plenty of water Follow up with your doctor If you develop new or worsening symptoms call 911 or come back to the ER for further evaluation. Murillo an?lisis de orina mostr? infecci?n. Murillo tomograf?a computarizada fue normal. [place]by el antibi?fred recetado seg?n las indicaciones, complete todo el ciclo y no omita ninguna dosis. Beber abundante agua Seguimiento con murillo m?dico Si desarrolla s?ntomas nuevos o que empeoran, llame al 911 o regrese a la lilian de emergencias para chris evaluaci?n adicional. <Nelly Thompson, PAPER SALES MANAGER - Last Filed: 11/03/22 13:03> Prescriptions: New cefuroxime axetil 250 mg tablet 250 mg PO Q12H 10 Days Qty: 20 0RF No Action meclizine 25 mg tablet 25 mg PO BID PRN (Reason: dizziness) Qty: 20 0RF Cortisporin-TC 3.3-3-10-0.5 mg/mL drops,suspension 4 drp otic (ears) TID Qty: 10 0RF imipramine HCl 10 mg tablet 10 mg PO BEDTIME aspirin 81 mg tablet,delayed release (DR/EC) 81 mg PO DAILY amlodipine 5 mg tablet 5 mg PO DAILY (DME) lancets [TRUEplus Lancets] 33 gauge misc See Rx Instructions .ROUTE .MEDSUPPLY Qty: 100 Rx Instructions: As directed alcohol swabs [Alcohol Prep Pads] Pads, Medicated 0 pad topical (DME) FreeStyle Lite Strips Strip See Rx Instructions .ROUTE .MEDSUPPLY Qty: 10 Rx Instructions: As directed atorvastatin 20 mg tablet 20 mg PO DAILY omeprazole 20 mg capsule,delayed release(DR/EC) 20 mg PO DAILY PRN metformin 1,000 mg tablet 1,000 mg PO QPM ferrous sulfate [FeroSul] 325 mg (65 mg iron) tablet 325 mg PO DAILY pioglitazone 45 mg tablet 45 mg PO DAILY lisinopril 40 mg tablet 40 mg PO DAILY Myrbetriq 50 mg tablet extended release 24 hr 50 mg PO DAILY oxybutynin chloride 5 mg tablet extended release 24hr 5 mg PO BEDTIME <Nelly Thompson NP - Last Filed: 11/03/22 13:03> Referrals: Jolly London MD [Primary Care Provider] - <Nelly Thompson NP - Last Filed: 11/03/22 13:03> Print Language: Northern Irish <Nelly Thompson NP - Last Filed: 11/03/22 13:03>
[2022-11-03 13:12] LABS: MANUAL DIFF FLAG NO
[2022-11-03 13:13] LABS: Basophils Percent Auto 0.6 % (0-2); Eosinophils Absolute Auto 0.1 X10*3/uL (0.0-0.4); Eosinophils Percent Auto 1.3 % (0-4); Hematocrit 35.7 % (42.0-52.0); Hemoglobin 11.5 g/dl (14.0-18.0); Imm Gran Abs Auto 0.03 X10*3/uL (0.00-0.03); Imm Gran Pct Auto 0.4 % (0.0-0.4); Lymphocytes Absolute Auto 1.4 X10*3/uL (1.2-4.9); Lymphocytes Percent Auto 20.1 % (20-40); Mean Corpuscular HGB Conc 32.2 g/dl (31.0-36.0); Mean Corpuscular Volume 86.9 fL (80.0-98.0); Mean Platelet Volume 10.2 fL (9.4-12.4); Monocytes Absolute Auto 0.6 X10*3/uL (0.1-1.2); Monocytes Percent Auto 8.9 % (2-11); Neutrophils Absolute Auto 4.8 x10*3/uL (2.0-8.3); Neutrophils Percent Auto 68.7 % (45-73); Platelet Count 252 X10*3/uL (160-400); Red Blood Count 4.11 X10*6/uL (4.60-5.80); Red Cell Distribution Width 15.9 % (11.0-16.0)
[2022-11-03 13:53] LABS: Anion Gap 11 (12-20); Blood Urea Nitrogen 29 mg/dL (9-16); Calcium 8.8 mg/dL (8.4-10.2); Carbon Dioxide 26 mmol/L (22-29); Chloride 107 mmol/L (96-108); Creatinine Clr Calc Pharmacy 36.9; Estimated Glomerular Filt Rate 51; Glucose Random 243 mg/dL (60-115); Sodium 139 mmol/L (135-145)
[2022-11-03 14:00] VITALS: BP 128/71; PULSE 99; RESP 18; O2SAT 99
--- NOTE | 2022-11-03 14:27 | PC.NURSE ---
Patient states that 2 days ago he was sleeping on his stomach when he rolled over he felt some pain in his abdomen but that pain has since resolved. Today when he was eating he got some pain in his belly again and he has been experiencing some decreased appetite. Patient generally well appearing at this time, denying pain. Patient given instructions to give a urine sample which he verbalizes an understanding for.
[2022-11-03 14:46] LABS: Appearance Urine Clear; Color Urine Yellow; Glucose Urine UA Negative (Negative); Leukocyte Esterase Urine Small (1+) (Negative); Nitrite Urine Positive (Negative); PH 5.5 (5.0-9.0); UMIC TRIGGER UACC YES; Urine Blood Negative (Negative); Urine Ketones Negative (Negative); Urine Protein Negative (Neg-Trace)
[2022-11-03 14:48] LABS: Bacteria Urine 4+ (None Seen); Hyaline Casts Urine 0-2 /LPF (0-2); RBC Urine 0-2 /HPF (0-2); Squamous Epithelial Cell Urine 0-2 /HPF (0-2); UACC Culture Trigger YES
[2022-11-03 14:53] LABS: Alanine Aminotransferase 10 U/L (0-40); Albumin Level 3.9 g/dL (3.5-5.0); Alkaline Phosphatase 98 U/L (39-117); Aspartate Amino Transferase 14 U/L (5-37); Bilirubin Direct 0.2 mg/dL (0.0-0.5); Bilirubin Total 0.8 mg/dL (0.0-1.0); Total Protein 6.4 g/dL (6.5-8.0)
== END 2022-11-03 16:25 | disposition home or self-care (01) ==
PROVIDERS: Nurse Practitioner Family; Physician Assistant; Emergency Provider Emergency Medicine Emergency Medical Services; PCP Family Medicine
DX: N39.0 Urinary tract infection, site not specified (principal); R10.2 Pelvic and perineal pain; Z79.899 Other long term (current) drug therapy
CPT/HCPCS: 36415; 74176; 80048; 80076; 81001; 85025; 87086; 87088; 87186; 99284

== ENCOUNTER 2023-02-14 14:24 | Outpatient (REF) | payer MEDICARE, SELFPAY ==
[2023-02-14 16:42] LABS: Microalbum/Creatinine Ratio Ur 23.9 ug/mg cr
[2023-02-14 16:59] LABS: Ferritin 652 ng/mL (20-250); TSH reflex Free T4 0.57 uIU/mL (0.32-4.0)
[2023-02-14 17:18] LABS: Folate 7.8 ng/mL (> or = 4.0); Vitamin B12 883 pg/mL (200-900)
== END 2023-02-14 14:25 | disposition home or self-care (01) ==
LOC: HO.CHCLDS 14:24
PROVIDERS: Visit Provider Family Medicine
DX: E11.65 Type 2 diabetes mellitus with hyperglycemia (principal); D63.8 Anemia in other chronic diseases classified elsewhere
CPT/HCPCS: 36415; 82043; 82607; 82728; 82746; 84443

== ENCOUNTER 2023-02-22 08:56 | Outpatient (REF) | payer MEDICARE, SELFPAY ==
[2023-02-22 11:40] LABS: Basophils Percent Auto 0.4 % (0-2); Eosinophils Absolute Auto 0.1 X10*3/uL (0.0-0.4); Eosinophils Percent Auto 1.6 % (0-4); Hematocrit 33.5 % (42.0-52.0); Hemoglobin 10.8 g/dl (14.0-18.0); Imm Gran Abs Auto 0.03 X10*3/uL (0.00-0.03); Imm Gran Pct Auto 0.5 % (0.0-0.4); Lymphocytes Absolute Auto 1.5 X10*3/uL (1.2-4.9); Lymphocytes Percent Auto 26.6 % (20-40); MANUAL DIFF FLAG NO; Mean Corpuscular HGB Conc 32.2 g/dl (31.0-36.0); Mean Corpuscular Hemoglobin 27.4 pg (27.0-33.0); Mean Platelet Volume 11.1 fL (9.4-12.4); Monocytes Absolute Auto 0.5 X10*3/uL (0.1-1.2); Monocytes Percent Auto 9.6 % (2-11); Neutrophils Absolute Auto 3.4 x10*3/uL (2.0-8.3); Neutrophils Percent Auto 61.3 % (45-73); Platelet Count 239 X10*3/uL (160-400); Red Blood Count 3.94 X10*6/uL (4.60-5.80); Red Cell Distribution Width 16.1 % (11.0-16.0); White Blood Count 5.6 X10*3/uL (4.8-10.8)
[2023-02-22 12:18] LABS: Alanine Aminotransferase 14 U/L (0-40); Albumin Level 3.6 g/dL (3.5-5.0); Alkaline Phosphatase 72 U/L (39-117); Anion Gap 13 (12-20); Aspartate Amino Transferase 16 U/L (5-37); Bilirubin Total 0.6 mg/dL (0.0-1.0); Blood Urea Nitrogen 31 mg/dL (9-16); Calcium 9.4 mg/dL (8.4-10.2); Carbon Dioxide 23 mmol/L (22-29); Chloride 107 mmol/L (96-108); Estimated Glomerular Filt Rate 56; Glucose Random 179 mg/dL (60-115); Iron 59 mcg/dL (45-160); Percent Iron Saturation 25 % (15-50); Potassium 5.5 mmol/L (3.3-5.1); Sodium 137 mmol/L (135-145); Total Iron Binding Capacity 238 mcg/dL (228-428); Total Protein 6.4 g/dL (6.5-8.0); Unsaturated Iron Binding 179 ug/dL
[2023-02-22 12:22] LABS: Cholesterol 149 mg/dL; HDL Cholesterol 37 mg/dL; LDL Cholesterol Calculated 76 mg/dl; Triglycerides 183 mg/dL
[2023-02-22 13:45] LABS: Reflex LDLD? No
== END 2023-02-22 08:57 | disposition home or self-care (01) ==
LOC: HO.HHCL 08:56
PROVIDERS: Visit Provider Family Medicine
DX: E11.65 Type 2 diabetes mellitus with hyperglycemia (principal); E78.5 Hyperlipidemia, unspecified; I10 Essential (primary) hypertension; D63.8 Anemia in other chronic diseases classified elsewhere
CPT/HCPCS: 36415; 80053; 80061; 83540; 85025

== ENCOUNTER → 2023-05-13 14:40 | Outpatient (BNV) | payer MEDICARE, SELFPAY | PROVIDERS: PCP Family Medicine; Visit Provider Internal Medicine | DX: D64.9 Anemia, unspecified (principal); Z85.48 Personal history of malignant neoplasm of epididymis | CPT/HCPCS: 99204; 99213 ==

== ENCOUNTER 2024-01-25 16:04 | Outpatient (REF) | payer MEDICARE, SELFPAY ==
--- NOTE | ~2024-01-25 | XR_ITS ---
EXAMINATION: XR CHEST CLINICAL INFORMATION: Chronic cough. History of metastatic prostate cancer. COMPARISON: 12/14/2017 TECHNIQUE: 2 views of the chest were obtained. FINDINGS: Lungs are well expanded and clear. No evidence of interstitial disease, mass or pleural effusion. Cardiac silhouette is normal in size. The pulmonary vascular pattern is normal. There is atherosclerotic calcification of the aortic arch. Bones appear to be diffusely osteopenic. No acute skeletal findings. Cholecystectomy clips in the upper abdomen. XR/XR chest 2V IMPRESSION: No acute pulmonary disease.
[2024-01-25 18:12] LABS: Alanine Aminotransferase 11 U/L (0-40); Alkaline Phosphatase 80 U/L (39-117); Anion Gap 14 (12-20); Aspartate Amino Transferase 17 U/L (5-37); Bilirubin Total 0.6 mg/dL (0.0-1.0); Blood Urea Nitrogen 22 mg/dL (9-16); Calcium 8.5 mg/dL (8.4-10.2); Carbon Dioxide 25 mmol/L (22-29); Chloride 107 mmol/L (96-108); Cholesterol 134 mg/dL (<200); Creatinine Urine 29.23 mg/dL; Estimated Glomerular Filt Rate 50; Glucose Random 103 mg/dL (60-115); HDL Cholesterol 38 mg/dL (>40); LDL Cholesterol Calculated 58 mg/dL (<100); Microalbum/Creatinine Ratio Ur 112.8 ug/mg cr (<30); Potassium 4.6 mmol/L (3.3-5.1); Sodium 141 mmol/L (135-145); Total Protein 6.8 g/dL (6.5-8.0); Triglycerides 190 mg/dL (<150)
[2024-01-25 18:30] LABS: TSH reflex Free T4 0.79 uIU/mL (0.32-4.0)
[2024-01-25 18:36] LABS: Folate 6.1 ng/mL (> or = 4.0); Vitamin B12 1032 pg/mL (200-900)
[2024-01-25 20:33] LABS: Reflex LDLD? No
== END 2024-01-25 16:05 | disposition home or self-care (01) ==
LOC: HO.HHCL 16:04
PROVIDERS: Visit Provider Family Medicine
DX: E11.65 Type 2 diabetes mellitus with hyperglycemia (principal); R05.3 Chronic cough
CPT/HCPCS: 36415; 71046; 80053; 80061; 82043; 82570; 82607; 82746; 84443

== ENCOUNTER 2024-02-03 11:32 | Emergency (ER) | payer MEDICARE, SELFPAY ==
--- NOTE | 2024-02-03 | ECG_ITS ---
Test Reason : weakness Blood Pressure : / mmHG Vent. Rate : 081 BPM Atrial Rate : 081 BPM P-R Int : 168 ms QRS Dur : 068 ms QT Int : 368 ms P-R-T Axes : 045 -10 034 degrees QTc Int : 427 ms Normal sinus rhythm Septal infarct (cited on or before 23-AUG-2022) Abnormal ECG When compared with ECG of 23-AUG-2022 13:41, Minimal criteria for Inferior infarct are no longer Present Referred By: Surjit Palmer Electronically Signed By:PETER LOPEZ MD
[2024-02-03 11:51] VITALS: BP 151/83; PULSE 104; RESP 19; TEMP 36.2; O2SAT 95; BMI 29.4
--- NOTE | 2024-02-03 11:51 | ED_ITS ---
HPI - General Adult General Chief complaint: General Medical Stated complaint: High BP Time Seen by Provider: 02/03/24 13:41 History of Present Illness ED Provider: Estela CAMARENA narrative: The patient is an 88-year-old male with a history of type 2 diabetes. Today he checked his blood sugar and it was about 320. He became nervous and came directly to the hospital. He does not feel unwell otherwise. No fever, sweats, chills. No headache. No chest pain. No shortness of breath. No pleuritic pain. No cough or sputum. No abdominal pain. No nausea or vomiting. He took an extra 750 mg of metformin for coming to the hospital. He does not feel unwell in any other way. Related Data Home Medications ?Medication ?Instructions ?Recorded ?Confirmed alcohol swabs (Alcohol Prep Pads) 1 pad topical DAILY 04/12/22 08/03/23 amlodipine 5 mg tablet 5 mg PO DAILY 04/12/22 08/03/23 aspirin 81 mg tablet,delayed 81 mg PO DAILY 04/12/22 08/03/23 release atorvastatin 20 mg tablet 20 mg PO DAILY 04/12/22 08/03/23 blood sugar diagnostic (FreeStyle #10 ea 04/12/22 08/03/23 Lite Strips) ferrous sulfate 325 mg (65 mg 325 mg PO DAILY 04/12/22 08/03/23 iron) tablet (FeroSul) imipramine HCl 10 mg tablet 10 mg PO BEDTIME 04/12/22 08/03/23 lancets 33 gauge (TRUEplus Lancets) #100 ea 04/12/22 08/03/23 lisinopril 40 mg tablet 40 mg PO DAILY 04/12/22 08/03/23 metformin 1,000 mg tablet 1,000 mg PO QPM 04/12/22 08/03/23 mirabegron 50 mg tablet,extended 50 mg PO DAILY 04/12/22 08/03/23 release 24 hr (Myrbetriq) omeprazole 20 mg capsule,delayed 20 mg PO DAILY PRN Heartburn 04/12/22 08/03/23 release oxybutynin chloride 5 mg 5 mg PO BEDTIME 04/12/22 08/03/23 tablet,extended release 24 hr pioglitazone 45 mg tablet 45 mg PO DAILY 04/12/22 08/03/23 Previous Rx's ?Medication ?Instructions ?Recorded meclizine 25 mg tablet 25 mg PO BID PRN dizziness #20 tabs 08/23/22 [id number] 3.3 4 drp otic (ears) TID #10 mL 08/23/22 mg-3 mg-10 mg-0.5 mg/mL ear drops,susp (Cortisporin-TC) cefuroxime axetil 250 mg tablet 250 mg PO Q12H 10 days #20 tabs 11/03/22 Allergies Allergy/AdvReac Type Severity Reaction Status Date / Time cephalexin Allergy Intermediate Constipatio Verified 02/03/24 11:55 n oxycodone [From Percocet] AdvReac Mild VOMITING/DI Verified 02/03/24 11:55 ZZINES percocet Allergy Unknown nausea/dizz Uncoded 02/03/24 11:55 iness Review of Systems 2 Review of Systems: Yes all other systems are reviewed and are negative PMFSH Past Medical History Medical History Choledocholithiasis Chronic anemia Diabetes mellitus Diverticulosis HTN (hypertension) Hypercholesterolemia Neurogenic bladder Prostate cancer Renal cyst Tubular adenoma of colon Surgical History H/O prostatectomy History of colonoscopy History of hernia surgery Family History Family History Unknown Cancer Social History Social History Household Members: None Housing: Apartment Alcohol intake: never Patient Tobacco Use Status: Never used Tobacco Advance Directives: No Advance Directives Information Provided: No service: No Current occupational status: retired Current occupation: right handed Physical Exam ED Vital Signs: Vital Signs - 24 hr 02/03/24 11:51 02/03/24 14:23 Temperature 97.2 F 97.2 F Pulse Rate 104 H 104 H Respiratory Rate 19 19 Blood Pressure 151/83 H 151/83 H Pulse Oximetry 95 95 Oxygen Delivery Method Room Air Room Air BMI result Body Mass Index 29.4 Const Other: The patient is awake, alert, pleasant, cooperative. He seemed very inpatient and did not seem ill or in distress at all. HENMT Other: Face is symmetrical. Mucous membranes moist. Eyes Other: Pupils are round equal, conjunctivae are clear, extraocular movements intact Neck Neck: Yes no JVD Resp Effort & Inspection: normal respiratory effort Auscultation: clear to auscultation bilaterally Cardio Rate: regular rate Rhythm: regular rhythm Heart sounds: S1 normal heart sound present and S2 normal heart sound present GI Other: Abdomen is soft and nontender Skin Other: Skin is dry and unremarkable Neuro Other: The patient is awake, alert, pleasant, appropriate. Cranial nerves 2-12 are intact. He moves his extremities normally. His gait is normal. He seems entirely neurologically intact. Extrem Other: No calf swelling or tenderness, no asymmetry. Course Course Course Narrative: This is an RME performed by Willy Rosales CNP: Additional HPI, ROS, PE not included below will be deferred to primary provider. Patient is an 88 year old male presents to emergency department for evaluation of hyperglycemia. Reports being a type 2 diabetic, takes metformin, his glucose today was in the 300s which is atypical for him. He is concerned he will not be able to have his radiation for prostate cancer today due to hyperglycemia. Plan: Labs, POC, urinalysis Medical Decision Making Medical Decision Making MDM Narrative: The patient is an 88-year-old male who was a type 2 diabetic. He checks his blood sugars at home. Today he checked his blood sugar and it was approximately 320. He became frightened and came to the emergency room. He also took an extra 750 mg of metformin at home. The patient has no other symptoms or complaints. He says his blood sugars are normally about 120-160. The patient does not appear ill. His blood sugar on his metabolic panel was 215. Subsequently a fingerstick glucose was 116. The patient was reassured and was comfortable being discharged. Lab Data 02/03/24 12:03 02/03/24 12:02 Labs: Lab Results 02/03/24 02/03/24 02/03/24 Range/Units 12:02 12:03 14:06 WBC 6.8 (4.8-10.8) X10*3/uL RBC 3.85 L (4.60-5.80) X10*6/uL Hgb 10.8 L (14.0-18.0) g/dl Hct 31.9 L (42.0-52.0) % MCV 82.9 (80.0-98.0) fL MCH 28.1 (27.0-33.0) pg MCHC 33.9 (31.0-36.0) g/dl RDW 16.3 H (11.0-16.0) % Plt Count 207 (160-400) X10*3/uL MPV 10.1 (9.4-12.4) fL Immature Gran % (Auto) 0.3 (0.0-0.4) % Neut % (Auto) 76.6 H (45-73) % Lymph % (Auto) 7.9 L (20-40) % [place] % (Auto) 9.4 (2-11) % Eos % (Auto) 5.7 H (0-4) % Baso % (Auto) 0.1 (0-2) % Lymph # (Auto) 0.5 L (1.2-4.9) X10*3/uL [place] # (Auto) 0.6 (0.1-1.2) X10*3/uL Eos # (Auto) 0.4 (0.0-0.4) X10*3/uL Baso # (Auto) 0.0 (0.0-0.2) X10*3/uL Abs Immat Gran (auto) 0.02 (0.00-0.03) X10*3/uL Absolute Neuts (auto) 5.2 (2.0-8.3) x10*3/uL Absolute Nucleated RBC 0.000 (0.0-0.012) X10*3/uL Nucleated RBC % (auto) 0.0 (0.0-0.2) /100WBC VBG pH 7.41 (7.32-7.43) VBG pCO2 32 mmHg VBG pO2 172 mmHg VBG HCO3 20 L (22-26) mmol/L VBG O2 Saturation 99.0 % VBG Base Excess -2.9 mmol/L Sodium 141 (135-145) mmol/L Potassium 4.3 (3.3-5.1) mmol/L Chloride 110 H (96-108) mmol/L Carbon Dioxide 20 L (22-29) mmol/L Anion Gap 15 (12-20) BUN 20 H (9-16) mg/dL Creatinine 1.22 (0.5-1.4) mg/dL Estim Creat Clear Calc 38.0 Estimated GFR 56 POC Glucose 116 H (60-115) mg/dL Random Glucose 215 H (60-115) mg/dL Calcium 8.3 L (8.4-10.2) mg/dL Total Bilirubin 0.6 (0.0-1.0) mg/dL AST 14 (5-37) U/L ALT 11 (0-40) U/L Alkaline Phosphatase 75 (39-117) U/L Total Protein 6.5 (6.5-8.0) g/dL Albumin 4.0 (3.5-5.0) g/dL Beta-Hydroxybutyrate 0.06 (0.02-0.27) mmol/L Independent Interpretation I performed an independent interpretation of an: EKG Interpretation: EKG at 14:10 shows normal sinus rhythm at 81 beats per minute. No significant change from previous EKGs. Discharge Plan Discharge Clinical Impression: Hyperglycemia Patient Disposition: Home, Self-Care Additional Instructions: Please continue your regular medications. Please continue to monitor your blood sugars. Please follow up with your regular doctor next week to discuss your blood sugars. Return to the emergency room if you feel significantly worse. Prescriptions: No Action meclizine 25 mg tablet 25 mg PO BID PRN (Reason: dizziness) Qty: 20 0RF Cortisporin-TC 3.3-3-10-0.5 mg/mL drops,suspension 4 drp otic (ears) TID Qty: 10 0RF cefuroxime axetil 250 mg tablet 250 mg PO Q12H 10 Days Qty: 20 0RF imipramine HCl 10 mg tablet 10 mg PO BEDTIME aspirin 81 mg tablet,delayed release (DR/EC) 81 mg PO DAILY amlodipine 5 mg tablet 5 mg PO DAILY (DME) lancets [TRUEplus Lancets] 33 gauge misc See Rx Instructions .ROUTE .MEDSUPPLY Qty: 100 Rx Instructions: As directed alcohol swabs [Alcohol Prep Pads] Pads, Medicated 1 pad topical DAILY (DME) FreeStyle Lite Strips Strip See Rx Instructions .ROUTE .MEDSUPPLY Qty: 10 Rx Instructions: As directed atorvastatin 20 mg tablet 20 mg PO DAILY omeprazole 20 mg capsule,delayed release(DR/EC) 20 mg PO DAILY PRN (Reason: Heartburn) metformin 1,000 mg tablet 1,000 mg PO QPM ferrous sulfate [FeroSul] 325 mg (65 mg iron) tablet 325 mg PO DAILY pioglitazone 45 mg tablet 45 mg PO DAILY lisinopril 40 mg tablet 40 mg PO DAILY Myrbetriq 50 mg tablet extended release 24 hr 50 mg PO DAILY oxybutynin chloride 5 mg tablet extended release 24hr 5 mg PO BEDTIME Referrals: Jolly London MD [Primary Care Provider] - (blood sugar elevation) Interventions: ED Discharge Assessment Last Done: 02/03/24 14:23 Discharge Date/Time: 02/03/24 14:24 Print Language: Danish
[2024-02-03 12:07] LABS: MANUAL DIFF FLAG NO
[2024-02-03 12:09] LABS: Basophils Percent Auto 0.1 % (0-2); Eosinophils Absolute Auto 0.4 X10*3/uL (0.0-0.4); Eosinophils Percent Auto 5.7 % (0-4); Hematocrit 31.9 % (42.0-52.0); Hemoglobin 10.8 g/dl (14.0-18.0); Imm Gran Abs Auto 0.02 X10*3/uL (0.00-0.03); Imm Gran Pct Auto 0.3 % (0.0-0.4); Lymphocytes Absolute Auto 0.5 X10*3/uL (1.2-4.9); Lymphocytes Percent Auto 7.9 % (20-40); Mean Corpuscular HGB Conc 33.9 g/dl (31.0-36.0); Mean Corpuscular Hemoglobin 28.1 pg (27.0-33.0); Mean Corpuscular Volume 82.9 fL (80.0-98.0); Mean Platelet Volume 10.1 fL (9.4-12.4); Monocytes Absolute Auto 0.6 X10*3/uL (0.1-1.2); Monocytes Percent Auto 9.4 % (2-11); Neutrophils Absolute Auto 5.2 x10*3/uL (2.0-8.3); Neutrophils Percent Auto 76.6 % (45-73); Platelet Count 207 X10*3/uL (160-400); Red Blood Count 3.85 X10*6/uL (4.60-5.80); Red Cell Distribution Width 16.3 % (11.0-16.0); White Blood Count 6.8 X10*3/uL (4.8-10.8)
[2024-02-03 12:12] LABS: VBG Base Excess -2.9 mmol/L; VBG HCO3 20 mmol/L (22-26); VBG pCO2 32 mmHg; VBG pH 7.41 (7.32-7.43); VBG pO2 172 mmHg; Venous Blood Gas Refer to POC result
[2024-02-03 12:38] LABS: Alanine Aminotransferase 11 U/L (0-40); Anion Gap 15 (12-20); Aspartate Amino Transferase 14 U/L (5-37); Bilirubin Total 0.6 mg/dL (0.0-1.0); Blood Urea Nitrogen 20 mg/dL (9-16); Calcium 8.3 mg/dL (8.4-10.2); Carbon Dioxide 20 mmol/L (22-29); Chloride 110 mmol/L (96-108); Estimated Glomerular Filt Rate 56; Glucose Random 215 mg/dL (60-115); Potassium 4.3 mmol/L (3.3-5.1); Sodium 141 mmol/L (135-145)
[2024-02-03 12:39] LABS: Alkaline Phosphatase 75 U/L (39-117); Beta-Hydroxybutyrate 0.06 mmol/L (0.02-0.27); Total Protein 6.5 g/dL (6.5-8.0)
[2024-02-03 14:10] LABS: Glucose, Whole Blood 116 mg/dL (60-115)
--- NOTE | 2024-02-03 14:18 | PC.NURSE ---
repeat POC obtained. provider notified/aware. ekg performed.
[2024-02-03 14:23] VITALS: BP 151/83; PULSE 104; RESP 19; TEMP 36.2; O2SAT 95
== END 2024-02-03 14:24 | disposition home or self-care (01) ==
PROVIDERS: Nurse Practitioner Family; Emergency Provider Emergency Medicine; PCP Family Medicine
DX: E11.65 Type 2 diabetes mellitus with hyperglycemia (principal); R53.1 Weakness; I10 Essential (primary) hypertension; E78.00 Pure hypercholesterolemia, unspecified; Z79.84 Long term (current) use of oral hypoglycemic drugs; Z79.02 Long term (current) use of antithrombotics/antiplatelets; Z79.82 Long term (current) use of aspirin; Z79.899 Other long term (current) drug therapy
CPT/HCPCS: 36415; 80053; 82010; 82803; 82947; 85025; 93005; 99283

== ENCOUNTER → 2024-02-03 14:10 | Outpatient (BNV) | payer MEDICARE, SELFPAY | PROVIDERS: Emergency Provider Emergency Medicine; PCP Family Medicine; Visit Provider Internal Medicine Cardiovascular Disease | DX: R94.31 Abnormal electrocardiogram [ECG] [EKG] (principal) | CPT/HCPCS: 93010 ==

== ENCOUNTER 2024-02-17 13:06 | Inpatient (IN) | payer OTHER, SELFPAY ==
[2024-02-17] VITALS (8 sets, daily range): BP systolic 105–128; BP diastolic 53–70; PULSE 90–118; RESP 13–18; TEMP 36.3–36.9; O2SAT 94–97; BMI 28.8
--- NOTE | ~2024-02-17 | CT_ITS ---
EXAMINATION: CT ABDOMEN AND PELVIS WITHOUT CONTRAST CLINICAL INFORMATION: Left flank pain. COMPARISON: CT abdomen and pelvis dated 11/03/2022. TECHNIQUE: Multidetector volumetric imaging was performed from the superior aspect of the liver through the pubic symphysis. Sagittal and coronal reformatted images were obtained on the technologist's workstation. This CT examination was performed using dose optimization techniques as appropriate, variously including the following: *Automated exposure control *Adjustment of mA and/or kV according to patient size (this includes techniques or standardized protocols for targeted exams where dose is matched to indication/reason for exam; i.e. extremities or head) *Use of iterative reconstruction technique DLP: 548 mGy-cm FINDINGS: LUNG BASES: There is bibasilar dependent hypoaeration. There is marked coronary artery atherosclerotic calcification, in particular involving the left anterior descending coronary artery. LIVER, GALLBLADDER, AND BILIARY TREE: The liver is normal in size, shape, and attenuation. No focal hepatic lesion or biliary ductal dilatation is present. The gallbladder is surgically absent. PANCREAS: Unremarkable. SPLEEN: Unremarkable. ADRENAL GLANDS: Unremarkable. KIDNEYS AND URETERS: The kidneys are normal in size, shape, and attenuation. There is mild bilateral hydronephroureter. There is fat stranding adjacent to the bilateral distal ureters. No perinephric stranding. BLADDER: The urinary bladder is decompressed and shows intramural fat. The bladder wall appears to be thickened to approximately 8 mm, and there is fat stranding adjacent to the urinary bladder. A benign, simple left renal cyst is redemonstrated, requires no imaging follow-up. GASTROINTESTINAL TRACT: There is marked diverticulosis. There is fat stranding adjacent to the sigmoid colon (3:65), raising the possibility of diverticulitis. No bowel obstruction, free intraperitoneal air or abscess is seen. There is no focal bowel wall thickening. The vermiform appendix appears normal. ABDOMINAL WALL: There is a healed vertical midline incision. There are small umbilical and left inguinal hernia defects. Within the left abdominal wall, an injection hematoma is noted. LYMPH NODES: There are postoperative changes consistent with a prior pelvic lymph node dissection. No sizable abdominopelvic lymphadenopathy is seen. VASCULAR: There is moderate aortoiliac atherosclerotic calcification. No abdominal aortic aneurysm is seen. PELVIC VISCERA: The prostate gland is surgically absent. A penile prosthesis is noted. OSSEOUS STRUCTURES: There is a stable moderate L3 compression fracture. There is degenerative disc disease at L4-L5 and L5-S1, with vacuum disc phenomenon. No acute or aggressive osseous finding is noted. CT/CT abdomen pelvis wo IV con IMPRESSION: 1. There is mild bilateral hydronephroureter. There is fat stranding adjacent to the urinary bladder, which appears decompressed. Bladder wall thickening is noted. The possibility of cystitis is raised. Please correlate with the patient's most recent urinalysis. 2. The prostate gland is surgically absent. 3. There is marked diverticulosis. There is fat stranding adjacent to the mid sigmoid colon, raising the possibility of diverticulitis. No free intraperitoneal air or abscess is seen. 4. There are are small umbilical and left inguinal hernia defects. 5. There is a stable moderate L3 compression fracture. There is moderately severe degenerative disc disease at L4-L5 and L5-S1, with interim increase at L4-L5. No acute or aggressive osseous finding is seen. 6. There is marked coronary artery atherosclerotic calcification. Fleischner guidelines were followed.
--- NOTE | 2024-02-17 13:13 | ED.DIZZY ---
HPI - Dizziness General Chief Complaint: Dizziness Stated Complaint: dizzy weak Time Seen by Provider: 02/17/24 13:29 Source: patient Mode of arrival: ambulatory Limitations: no limitations History of Present Illness ED Provider: Dr. Santiago HPI Narrative: 88-year-old male past medical history significant for type 2 diabetes prostate cancer has had anemia choledocholithiasis hypertension hyperlipidemia neurogenic bladder history of hernia surgery colonoscopy and prostatectomy currently going radiation for prostate cancer. He is supposed to have an appointment today she did feel well enough so he came here to the ER. He denies any falls or injuries he has chronic dysuria and burning. And he has chronic constipation did the pills he takes for his prostate cancer. Patient was seen ambulating from the bathroom without any signs of dizziness steady gait. His main concern is that when he takes the medication he has burning that he can not stand anymore. He is given this by the urologist he denies any falls or injuries he has no dizziness now he denies fevers chills or cough or shortness breath he has not talked to the urologist he states they do not speak French in the office. Related Data Home Medications ?Medication ?Instructions ?Recorded ?Confirmed alcohol swabs (Alcohol Prep Pads) 1 pad topical DAILY 04/12/22 08/03/23 amlodipine 5 mg tablet 5 mg PO DAILY 04/12/22 08/03/23 aspirin 81 mg tablet,delayed 81 mg PO DAILY 04/12/22 08/03/23 release atorvastatin 20 mg tablet 20 mg PO DAILY 04/12/22 08/03/23 blood sugar diagnostic (FreeStyle #10 ea 04/12/22 08/03/23 Lite Strips) ferrous sulfate 325 mg (65 mg 325 mg PO DAILY 04/12/22 08/03/23 iron) tablet (FeroSul) imipramine HCl 10 mg tablet 10 mg PO BEDTIME 04/12/22 08/03/23 lancets 33 gauge (TRUEplus Lancets) #100 ea 04/12/22 08/03/23 lisinopril 40 mg tablet 40 mg PO DAILY 04/12/22 08/03/23 metformin 1,000 mg tablet 1,000 mg PO QPM 04/12/22 08/03/23 mirabegron 50 mg tablet,extended 50 mg PO DAILY 04/12/22 08/03/23 release 24 hr (Myrbetriq) omeprazole 20 mg capsule,delayed 20 mg PO DAILY PRN Heartburn 04/12/22 08/03/23 release oxybutynin chloride 5 mg 5 mg PO BEDTIME 04/12/22 08/03/23 tablet,extended release 24 hr pioglitazone 45 mg tablet 45 mg PO DAILY 04/12/22 08/03/23 Previous Rx's ?Medication ?Instructions ?Recorded meclizine 25 mg tablet 25 mg PO BID PRN dizziness #20 tabs 08/23/22 [id number] 3.3 4 drp otic (ears) TID #10 mL 08/23/22 mg-3 mg-10 mg-0.5 mg/mL ear drops,susp (Cortisporin-TC) cefuroxime axetil 250 mg tablet 250 mg PO Q12H 10 days #20 tabs 11/03/22 cefuroxime axetil 500 mg tablet 500 mg PO BID 7 days #14 tabs 02/17/24 Allergies Allergy/AdvReac Type Severity Reaction Status Date / Time cephalexin Allergy Intermediate Constipatio Verified 02/17/24 13:24 n oxycodone [From Percocet] AdvReac Mild VOMITING/DI Verified 02/17/24 13:24 ZZINES percocet Allergy Unknown nausea/dizz Uncoded 02/03/24 11:55 iness Review of Systems Review of Systems: Review of systems: General: Patient denies any fever chills recent illness or falls Musculoskeletal: Denies back pain or body aches or other injuries HEENT: denies headache, runny nose, ear pain Respiratory: denies shortness of breath, cough Cardiovascular: no chest pain or palpitations : denies dysuria, frequency Abdomen: no nausea vomiting denies abdominal pain Extremities: no swelling, no pain Skin: no diaphoresis Yes all other systems are reviewed and are negative PMFSH Past Medical History Medical History Choledocholithiasis Chronic anemia Diabetes mellitus Diverticulosis HTN (hypertension) Hypercholesterolemia Neurogenic bladder Prostate cancer Renal cyst Tubular adenoma of colon Surgical History H/O prostatectomy History of colonoscopy History of hernia surgery Family History Family History Unknown Cancer Social History Social History Household Members: None Housing: Apartment Alcohol intake: never Patient Tobacco Use Status: Never used Tobacco Advance Directives: No Advance Directives Information Provided: No service: No Current occupational status: retired Current occupation: right handed Physical Exam Vital Signs: Vital Signs: Last Vital Signs Temp 98.5 F 02/17/24 14:32 Pulse 107 H 02/17/24 14:32 Resp 13 02/17/24 14:32 BP 128/62 02/17/24 14:32 Pulse Ox 94 02/17/24 13:14 O2 Del Method Room Air 02/17/24 14:32 BMI result Body Mass Index 28.8 Neurological exam: CN II- XII tested. Patient is alert and oriented to person place and time. Patient has no dysphagia or dysarthia, denies good vision in all four vision patel no nystagmus on exam, good strength to upper and lower extremities with normal reflexes to brachioradialis, wrist, patella and achilles. Negative romberg, good finger to nose and heel to engel. General: Well-appearing well-nourished in no signs of distress HEENT: Normocephalic atraumatic Neck: No signs of JVD, no masses no tenderness or lymphadenopathy Cardiovascular: Regular rate and rhythm Respiratory: Clear to auscultation bilaterally Abdomen: Soft nontender no masses Extremities: Normal pedal pulses no signs of edema Skin: Dry warm no rashes Back: No tenderness full ROM Course Course Course Narrative: This is an RME performed by Willy Rosales CNP: Additional HPI, ROS, PE not included below will be deferred to primary provider. Patient is an 88-year-old male who presents emergency department for evaluation of weakness, dizziness, poor balance, feeling unwell. States he was due to have radiation treatment today at 14:30 for prostate cancer in [place], did not feel he was able to go due to feeling unwell. Reevaluation(s) Reevaluation #1: 1410 patient called me back to his room he states that he feels like his face is having movement and he feels some paresthesias. He states he did not have the problem before coming to the ER. He states he is not having the symptoms right now I did evaluate the patient there is no movement to his face he looks well his vitals remained stable patient continued to ask me approximately 6 more times about his face and saying this is new continue do not see any movement on his face there was no pain to palpation no signs of infection this could be an electrolyte abnormality I will continue with workup in the meantime his urine did result and shows signs of infection I will give the patient antibiotic at this time. Reevaluation #2: Labs show a slight RONEY with his urinary tract infection I will give the patient some fluids. Reevaluation #3: Patient now with magnesium of 0.6 which could explain his facial fasciculation and weakness Medications Administered Discontinued Medications Generic Name Dose Route Start Last Admin Trade Name Freq PRN Reason Stop Dose Admin Cefuroxime Axetil 500 mg 02/17/24 14:26 02/17/24 14:52 Cefuroxime Axetil 500 Mg Tablet PO 02/17/24 14:27 500 mg ONCE ONE Administration Phenazopyridine HCl 100 mg 02/17/24 14:26 02/17/24 14:51 Phenazopyridine Hcl 100 Mg Tablet PO 02/17/24 14:27 100 mg ONCE ONE Administration Medical Decision Making Medical Decision Making [facility] Narrative: Patient has completely normal neuro exam the patient's fluids check labs urine and reassess Differential Diagnosis Differential Diagnoses: The differential diagnosis associated with the presentation includes UTI electrolyte abnormality anemia weakness dizziness Consult Healthcare Provider Management of the patient was discussed with: Hospitalist patient will be admitted to medicine. Lab Data [facility] Lab Attestation statement: I reviewed the patient's lab results. 02/17/24 14:34 02/17/24 14:34 Labs: Lab Results 02/17/24 02/17/24 02/17/24 Range/Units 13:32 14:34 14:42 WBC 8.6 (4.8-10.8) X10*3/uL RBC 3.72 L (4.60-5.80) X10*6/uL Hgb 10.4 L (14.0-18.0) g/dl Hct 31.0 L (42.0-52.0) % MCV 83.3 (80.0-98.0) fL MCH 28.0 (27.0-33.0) pg MCHC 33.5 (31.0-36.0) g/dl RDW 15.2 (11.0-16.0) % Plt Count 289 D (160-400) X10*3/uL MPV 9.5 (9.4-12.4) fL Immature Gran % (Auto) 0.7 H (0.0-0.4) % Neut % (Auto) 83.8 H (45-73) % Lymph % (Auto) 3.1 L (20-40) % [place] % (Auto) 10.9 (2-11) % Eos % (Auto) 1.3 (0-4) % Baso % (Auto) 0.2 (0-2) % Lymph # (Auto) 0.3 L (1.2-4.9) X10*3/uL [place] # (Auto) 0.9 (0.1-1.2) X10*3/uL Eos # (Auto) 0.1 (0.0-0.4) X10*3/uL Baso # (Auto) 0.0 (0.0-0.2) X10*3/uL Abs Immat Gran (auto) 0.06 H (0.00-0.03) X10*3/uL Absolute Neuts (auto) 7.2 (2.0-8.3) x10*3/uL Absolute Nucleated RBC 0.000 (0.0-0.012) X10*3/uL Nucleated RBC % (auto) 0.0 (0.0-0.2) /100WBC Sodium 141 (135-145) mmol/L Potassium 3.8 (3.3-5.1) mmol/L Chloride 105 (96-108) mmol/L Carbon Dioxide 25 (22-29) mmol/L Anion Gap 15 (12-20) BUN 28 H (9-16) mg/dL Creatinine 1.60 H (0.5-1.4) mg/dL Estim Creat Clear Calc 28.7 Estimated GFR 41 POC Glucose 181 H (60-115) mg/dL Random Glucose 178 H (60-115) mg/dL Calcium 7.9 L (8.4-10.2) mg/dL Magnesium < 0.6 L* (1.6-2.6) mg/dL Total Bilirubin 0.8 (0.0-1.0) mg/dL AST 24 (5-37) U/L ALT 26 (0-40) U/L Alkaline Phosphatase 76 (39-117) U/L Troponin I High Sens 3.1 (<3.5-35.0) ng/L Total Protein 7.3 (6.5-8.0) g/dL Albumin 3.9 (3.5-5.0) g/dL Urine Color [place] Urine Appearance Cloudy Urine pH 6.0 (5.0-9.0) Ur Specific [place] 1.025 (1.005-1.025) Urine Protein See Note (Neg-Trace) mg/dL Urine Glucose (UA) See Note (Negative) mg/dL Urine Ketones Trace (Negative) mg/dL Urine Blood See Note (Negative) Urine Nitrite See Note (Negative) Ur Leukocyte Esterase Moderate (2+) H (Negative) Urine RBC 0-2 (0-2) /HPF Urine WBC >50 H (0-5) /HPF Ur Squamous Epith Cells 0-2 (0-2) /HPF Urine Bacteria 2+ (None Seen) Hyaline Casts 0-2 (0-2) /LPF Independent Interpretation I performed an independent interpretation of an: EKG External Record Review External record reviewed: Inpatient record, Office record and Outpatient record Discharge Plan Discharge Clinical Impression: Dysuria, Prostate cancer, Acute UTI, Hypomagnesemia, Paresthesia Patient Disposition: Admitted As Inpatient Instructions: Prostate Cancer (DC), Dysuria (ED) Additional Instructions: You were seen today for burning with urination and found to have a UTI. Please call follow up with urologist. You had labs and a urine sent which was normal. Prescriptions: New cefuroxime axetil 500 mg tablet 500 mg PO BID 7 Days Qty: 14 0RF No Action meclizine 25 mg tablet 25 mg PO BID PRN (Reason: dizziness) Qty: 20 0RF Cortisporin-TC 3.3-3-10-0.5 mg/mL drops,suspension 4 drp otic (ears) TID Qty: 10 0RF cefuroxime axetil 250 mg tablet 250 mg PO Q12H 10 Days Qty: 20 0RF imipramine HCl 10 mg tablet 10 mg PO BEDTIME aspirin 81 mg tablet,delayed release (DR/EC) 81 mg PO DAILY amlodipine 5 mg tablet 5 mg PO DAILY (DME) lancets [TRUEplus Lancets] 33 gauge misc See Rx Instructions .ROUTE .MEDSUPPLY Qty: 100 Rx Instructions: As directed alcohol swabs [Alcohol Prep Pads] Pads, Medicated 1 pad topical DAILY (DME) FreeStyle Lite Strips Strip See Rx Instructions .ROUTE .MEDSUPPLY Qty: 10 Rx Instructions: As directed atorvastatin 20 mg tablet 20 mg PO DAILY omeprazole 20 mg capsule,delayed release(DR/EC) 20 mg PO DAILY PRN (Reason: Heartburn) metformin 1,000 mg tablet 1,000 mg PO QPM ferrous sulfate [FeroSul] 325 mg (65 mg iron) tablet 325 mg PO DAILY pioglitazone 45 mg tablet 45 mg PO DAILY lisinopril 40 mg tablet 40 mg PO DAILY Myrbetriq 50 mg tablet extended release 24 hr 50 mg PO DAILY oxybutynin chloride 5 mg tablet extended release 24hr 5 mg PO BEDTIME Print Language: French
--- NOTE | 2024-02-17 13:17 | ECG_ITS ---
Test Reason : dizziness Blood Pressure : / mmHG Vent. Rate : 104 BPM Atrial Rate : 104 BPM P-R Int : 146 ms QRS Dur : 064 ms QT Int : 346 ms P-R-T Axes : 031 -12 027 degrees QTc Int : 454 ms Sinus tachycardia Inferior infarct , age undetermined Possible Anterior infarct (cited on or before 23-AUG-2022) Abnormal ECG When compared with ECG of 03-FEB-2024 14:10, Questionable change in initial forces of Septal leads Referred By: Lizbeth Rosales Electronically Signed By:Arcenio Martin
[2024-02-17 13:41] LABS: Appearance Urine Cloudy; Color Urine Orange; Leukocyte Esterase Urine Moderate (2+) (Negative); Specific Gravity - Urine 1.025 (1.005-1.025); UMIC TRIGGER UACC YES; Urine Ketones Trace mg/dL (Negative)
[2024-02-17 13:57] LABS: Bacteria Urine 2+ (None Seen); Hyaline Casts Urine 0-2 /LPF (0-2); RBC Urine 0-2 /HPF (0-2); Squamous Epithelial Cell Urine 0-2 /HPF (0-2); UACC Culture Trigger YES; WBC Urine >50 /HPF (0-5)
[2024-02-17 14:40] LABS: MANUAL DIFF FLAG NO
[2024-02-17 14:41] LABS: Basophils Percent Auto 0.2 % (0-2); Eosinophils Absolute Auto 0.1 X10*3/uL (0.0-0.4); Eosinophils Percent Auto 1.3 % (0-4); Hemoglobin 10.4 g/dl (14.0-18.0); Imm Gran Abs Auto 0.06 X10*3/uL (0.00-0.03); Imm Gran Pct Auto 0.7 % (0.0-0.4); Lymphocytes Absolute Auto 0.3 X10*3/uL (1.2-4.9); Lymphocytes Percent Auto 3.1 % (20-40); Mean Corpuscular HGB Conc 33.5 g/dl (31.0-36.0); Mean Corpuscular Volume 83.3 fL (80.0-98.0); Mean Platelet Volume 9.5 fL (9.4-12.4); Monocytes Absolute Auto 0.9 X10*3/uL (0.1-1.2); Monocytes Percent Auto 10.9 % (2-11); Neutrophils Absolute Auto 7.2 x10*3/uL (2.0-8.3); Neutrophils Percent Auto 83.8 % (45-73); Platelet Count 289 X10*3/uL (160-400); Red Blood Count 3.72 X10*6/uL (4.60-5.80); Red Cell Distribution Width 15.2 % (11.0-16.0); White Blood Count 8.6 X10*3/uL (4.8-10.8)
[2024-02-17 14:47] LABS: Glucose, Whole Blood 181 mg/dL (60-115)
[2024-02-17] MEDS: Phenazopyridine HCL 100 MG TABLET PO (14:51)
[2024-02-17] MEDS: cefuroxime axetiL 500 MG TABLET PO (14:52)
[2024-02-17 14:56] LABS: Alanine Aminotransferase 26 U/L (0-40); Albumin Level 3.9 g/dL (3.5-5.0); Alkaline Phosphatase 76 U/L (39-117); Anion Gap 15 (12-20); Aspartate Amino Transferase 24 U/L (5-37); Bilirubin Total 0.8 mg/dL (0.0-1.0); Blood Urea Nitrogen 28 mg/dL (9-16); Calcium 7.9 mg/dL (8.4-10.2); Carbon Dioxide 25 mmol/L (22-29); Chloride 105 mmol/L (96-108); Creatinine Clr Calc Pharmacy 28.7; Estimated Glomerular Filt Rate 41; Glucose Random 178 mg/dL (60-115); Potassium 3.8 mmol/L (3.3-5.1); Sodium 141 mmol/L (135-145); Total Protein 7.3 g/dL (6.5-8.0)
[2024-02-17 15:01] LABS: Troponin-I High Sensitivity 3.1 ng/L (<3.5-35.0)
[2024-02-17 15:11] LABS: Magnesium < 0.6 mg/dL (1.6-2.6)
--- NOTE | 2024-02-17 16:06 | P.HPHOSP_ITS ---
History of Present Illness Date of Service: 02/17/24 Chief Complaint: weakness 88M PMH prostate ca on RT, dm, htn, hld, presented with weakness. Patient states he has been feeling weak for about 1 week. Also reporting significant dysuria with burning and sediment noticed in his urine. Also difficulty achieving stream. Two days prior to presentation was having significant loose diarrhea but has not had bowel movement in about 2 days. Denies any blood in stool, fevers, chills, abdominal pain. Is reporting some left flank pain. In ED noted to have elevated creatinine of 1.66 increased from 1.22. And magnesium below 0.6. Review of Systems 2 Review of Systems: Yes all other systems are reviewed and are negative FOR[facility]LY [facility] Medical History Tubular adenoma of colon Neurogenic bladder Chronic anemia HTN (hypertension) Prostate cancer Hypercholesterolemia Diabetes mellitus Renal cyst Choledocholithiasis Diverticulosis Family History Unknown Cancer Surgical History History of colonoscopy History of hernia surgery H/O prostatectomy Social History Household Members: None Housing: Apartment Alcohol intake: never Patient Tobacco Use Status: Never used Tobacco Advance Directives: No Advance Directives Information Provided: No service: No Current occupational status: retired Current occupation: right handed Meds Allergies Allergy/AdvReac Type Severity Reaction Status Date / Time cephalexin Allergy Intermediate Constipatio Verified 02/17/24 13:24 n oxycodone [From Percocet] AdvReac Mild VOMITING/DI Verified 02/17/24 13:24 ZZINES percocet Allergy Unknown nausea/dizz Uncoded 02/03/24 11:55 iness Active Medications: Current Medications Acetaminophen (Acetaminophen 325 Mg Tablet) 650 mg PO Q6H PRN PRN Reason: Pain, Mild (Pain Scale 1-3), fever or headache Calcium Carbonate (Calcium Carbonate 750 Mg Tab.Chew) 750 mg PO Q4H PRN PRN Reason: Heartburn Glucose (Glucose Gel 15 Gm Gel..Gram.) 15 gm PO Q15M PRN; Protocol PRN Reason: per Hypoglycemia Standing Ord. Heparin Sodium (Porcine) (Heparin Sodium,Porcine 5,000 Unit/Ml Vial) 5,000 unit SUBCUT Q12H [facility] Magnesium Sulfate (Magnesium Sulfate/H2o) 2 gm in 50 mls @ 25 mls/hr IV ONCE ONE Stop: 02/17/24 17:09 Magnesium Sulfate (Magnesium Sulfate/H2o) 2 gm in 50 mls @ 25 mls/hr IV ONCE ONE Stop: 02/18/24 01:01 Sodium Chloride (Ns) 1,000 mls @ 75 mls/hr IVCONT .[id number] [facility] Ceftriaxone Sodium 1 gm/ (Sodium Chloride) 50 mls @ 100 mls/hr IV Q24H [facility] Dextrose (D10) 250 mls @ 750 mls/hr IV Q15M PRN; Protocol PRN Reason: per Hypoglycemia Standing Ord. Insulin Human Lispro (Insulin Lispro 100 Unit/Ml 3 Ml Vial) 0 unit SUBCUT QIDACHS [facility]; Protocol Magnesium Hydroxide (Milk Of Magnesia 30 Ml Oral.Susp) 30 ml PO DAILY PRN PRN Reason: Constipation Magnesium Oxide (Magnesium Oxide 400 Mg Tablet) 800 mg PO TID [facility] Melatonin (Melatonin 3 Mg Tablet) 6 mg PO BEDTIME PRN PRN Reason: Insomnia Sodium Chloride (0.9 % Sodium Chloride Flush 3 Ml Syringe) 3 ml IVFLUSH QSHIFT [facility] Home Medications ?Medication ?Instructions ?Recorded ?Confirmed ?Last Taken ?Type alcohol swabs (Alcohol Prep Pads) 1 pad topical DAILY 04/12/22 08/03/23 Unknown History amlodipine 5 mg tablet 5 mg PO DAILY 04/12/22 08/03/23 Unknown History aspirin 81 mg tablet,delayed 81 mg PO DAILY 04/12/22 08/03/23 Unknown History release atorvastatin 20 mg tablet 20 mg PO DAILY 04/12/22 08/03/23 Unknown History blood sugar diagnostic (FreeStyle #10 ea 04/12/22 08/03/23 Unknown History Lite Strips) ferrous sulfate 325 mg (65 mg 325 mg PO DAILY 04/12/22 08/03/23 Unknown History iron) tablet (FeroSul) imipramine HCl 10 mg tablet 10 mg PO BEDTIME 04/12/22 08/03/23 Unknown History lancets 33 gauge (TRUEplus Lancets) #100 ea 04/12/22 08/03/23 Unknown History lisinopril 40 mg tablet 40 mg PO DAILY 04/12/22 08/03/23 Unknown History metformin 1,000 mg tablet 1,000 mg PO QPM 04/12/22 08/03/23 Unknown History mirabegron 50 mg tablet,extended 50 mg PO DAILY 04/12/22 08/03/23 Unknown History release 24 hr (Myrbetriq) omeprazole 20 mg capsule,delayed 20 mg PO DAILY PRN Heartburn 04/12/22 08/03/23 Unknown History release oxybutynin chloride 5 mg 5 mg PO BEDTIME 04/12/22 08/03/23 Unknown History tablet,extended release 24 hr pioglitazone 45 mg tablet 45 mg PO DAILY 04/12/22 08/03/23 Unknown History Physical Exam 2 Vital Signs and Narrative: Vital Signs: Last Vital Signs Temp 98.5 F 02/17/24 14:32 Pulse 107 H 02/17/24 14:32 Resp 13 02/17/24 14:32 BP 128/62 02/17/24 14:32 Pulse Ox 94 02/17/24 13:14 O2 Del Method Room Air 02/17/24 14:32 BMI result Body Mass Index 28.8 General: AO X 3, no acute distress Resp: CTA bilateral, no accessory muscles used CVS: S1,S2,RRR GI: soft, non tender, non distended Neuro: motor grossly intact, alert Psych: appropriate affect, appropriate insight Results Labs 02/17/24 14:34 02/17/24 14:34 Labs: Laboratory Results - last 24 hr 02/17/24 02/17/24 02/17/24 13:32 14:34 14:42 MCV 83.3 MCH 28.0 MCHC 33.5 RDW 15.2 Plt Count 289 D MPV 9.5 Immature Gran % (Auto) 0.7 H Neut % (Auto) 83.8 H Lymph % (Auto) 3.1 L [place] % (Auto) 10.9 Eos % (Auto) 1.3 Baso % (Auto) 0.2 Lymph # (Auto) 0.3 L [place] # (Auto) 0.9 Eos # (Auto) 0.1 Baso # (Auto) 0.0 Abs Immat Gran (auto) 0.06 H Absolute Neuts (auto) 7.2 Absolute Nucleated RBC 0.000 Nucleated RBC % (auto) 0.0 Anion Gap 15 Estim Creat Clear Calc 28.7 Estimated GFR 41 POC Glucose 181 H Random Glucose 178 H Calcium 7.9 L Magnesium < 0.6 L* Total Bilirubin 0.8 AST 24 ALT 26 Alkaline Phosphatase 76 Troponin I High Sens 3.1 Total Protein 7.3 Albumin 3.9 Urine Color [place] Urine Appearance Cloudy Urine pH 6.0 Ur Specific [place] 1.025 Urine Protein See Note Urine Glucose (UA) See Note Urine Ketones Trace Urine Blood See Note Urine Nitrite See Note Ur Leukocyte Esterase Moderate (2+) H Urine RBC 0-2 Urine WBC >50 H Ur Squamous Epith Cells 0-2 Urine Bacteria 2+ Hyaline Casts 0-2 Assessment and Plan (1) Hypomagnesemia: Status: Acute Plan 88M PMH prostate ca on RT, dm, htn, hld, presented with weakness Severe acute hypomagnesemia Possibly due to diarrhea or PPI Hold PPI Replace and monitor magnesium Urinary tract infection Ceftriaxone, follow-up cultures Acute kidney injury IV fluids, check CT abdomen, monitor BMP Diabetes Insulin sliding scale Hypertension Amlodipine DVT prophylaxis with heparin subQ Full code Patient with severe hypomagnesemia requiring replacement and close monitoring likely require at least 2 midnights inpatient due to severity Quality Stroke Does the patient have a stroke diagnosis?: No VTE Prior VTE?: No VTE Risk Level:: Medical - moderate - high VTE Device Contraindication: Treatment Not Indicated VTE Drug Contraindication: N/A - Med Ordered
[2024-02-17] MEDS: Magnesium Sulfate/H2O 2 GM/50 ML PIGGYBACK IV ×2 (16:08→22:43)
[2024-02-17] MEDS: 0.9 % Sodium Chloride 1,000 ML 999 ML IV (16:09)
--- NOTE | 2024-02-17 16:57 | PHA.MEDREC ---
Addendum entered by Malvin Trevino [facility] 02/17/24 17:27: MED REC DOUBLE CHECKED BY [facility] Original Note: Pharmacy Consult ? Medication Reconciliation Pharmacy has completed the medication reconciliation. Confirmed medications with patient and help from group practice pediatrician. Patient also had a list i was able to use as well.
[2024-02-17 18:17] LABS: Glucose, Whole Blood 100 mg/dL (60-115)
[2024-02-17] MEDS: 0.9 % Sodium Chloride 1,000 ML 75 ML IVCONT (18:43)
[2024-02-17] MEDS: Heparin Sodium,Porcine 5,000 UNIT/ML VIAL 5000 UNIT SUBCUT (18:49)
[2024-02-17 20:44] LABS: Glucose, Whole Blood 186 mg/dL (60-115)
[2024-02-17] MEDS: Magnesium Oxide 400 MG TABLET 800 MG PO (22:39)
[2024-02-17] MEDS: Insulin Lispro 100 UNIT/ML 3 ML VIAL SUBCUT (22:42)
[2024-02-18] VITALS (7 sets, daily range): BP systolic 113–130; BP diastolic 55–74; PULSE 85–107; RESP 18–20; TEMP 36.1–36.4; O2SAT 95–97
[2024-02-18] MEDS: Heparin Sodium,Porcine 5,000 UNIT/ML VIAL 5000 UNIT SUBCUT ×2 (03:15→15:26)
[2024-02-18 06:27] LABS: Hematocrit 27.6 % (42.0-52.0); Hemoglobin 9.2 g/dl (14.0-18.0); Mean Corpuscular HGB Conc 33.3 g/dl (31.0-36.0); Mean Corpuscular Hemoglobin 27.5 pg (27.0-33.0); Mean Corpuscular Volume 82.6 fL (80.0-98.0); Mean Platelet Volume 10.3 fL (9.4-12.4); Platelet Count 260 X10*3/uL (160-400); Red Blood Count 3.34 X10*6/uL (4.60-5.80); White Blood Count 7.1 X10*3/uL (4.8-10.8)
[2024-02-18 06:49] LABS: Anion Gap 15 (12-20); Blood Urea Nitrogen 17 mg/dL (9-16); Calcium 7.2 mg/dL (8.4-10.2); Carbon Dioxide 21 mmol/L (22-29); Chloride 109 mmol/L (96-108); Creatinine Clr Calc Pharmacy 46.4; Estimated Glomerular Filt Rate > 60; Glucose Fasting 105 mg/dL (60-99); Magnesium 1.8 mg/dL (1.6-2.6); Potassium 3.5 mmol/L (3.3-5.1); Sodium 141 mmol/L (135-145)
[2024-02-18 07:29] LABS: Glucose, Whole Blood 109 mg/dL (60-115)
--- NOTE | 2024-02-18 08:46 | HO.PM.IMPN ---
Subjective Subjective Date of Service: 02/18/24 Interval History: feeling better Physical Exam Vital Signs: Vital Signs: Last Vital Signs Temp 97.4 F 02/18/24 07:41 Pulse 88 02/18/24 07:41 Resp 18 02/18/24 07:41 BP 127/66 02/18/24 07:41 Pulse Ox 96 02/18/24 07:41 O2 Del Method Room Air 02/18/24 07:41 BMI result Body Mass Index 28.8 General: AO X 3, no acute distress Resp: CTA bilateral, no accessory muscles used CVS: S1,S2,RRR GI: soft, non tender, non distended Neuro: motor grossly intact, alert Psych: appropriate affect, appropriate insight Objective Data Active Medications Acetaminophen (Acetaminophen 325 Mg Tablet) 650 mg PO Q6H PRN PRN Reason: Pain, Mild (Pain Scale 1-3), fever or headache Amlodipine Besylate (Amlodipine Besylate 5 Mg Tablet) 5 mg PO DAILY [facility]; Protocol Ascorbic Acid (Ascorbic Acid 500 Mg Tablet) 500 mg PO DAILY [facility] Aspirin (Aspirin Enteric Coated 81 Mg Tablet.) 81 mg PO DAILY [facility] Atorvastatin Calcium (Atorvastatin Calcium 20 Mg Tablet) 20 mg PO DAILY [facility] Calcium Carbonate (Calcium Carbonate 750 Mg Tab.Chew) 750 mg PO Q4H PRN PRN Reason: Heartburn Cyanocobalamin (Cyanocobalamin (Vitamin B-12) 1,000 Mcg Tablet) 1,000 mcg PO DAILY [facility] Ferrous Sulfate (Ferrous Sulfate 324 Mg Tablet.) 324 mg PO DAILY [facility] Glucose (Glucose Gel 15 Gm Gel..Gram.) 15 gm PO Q15M PRN; Protocol PRN Reason: per Hypoglycemia Standing Ord. Heparin Sodium (Porcine) (Heparin Sodium,Porcine 5,000 Unit/Ml Vial) 5,000 unit SUBCUT Q12H [facility] Last Admin: 02/18/24 03:15 Dose: 5,000 unit Documented By: CHETAN Sodium Chloride (Ns) 1,000 mls @ 75 mls/hr IVCONT .[id number] [facility] Last Admin: 02/18/24 06:07 Dose: Not Given Documented By: CHETAN Non-Admin Reason: IV Running Ceftriaxone Sodium 1 gm/ (Sodium Chloride) 50 mls @ 100 mls/hr IV Q24H [facility] Dextrose (D10) 250 mls @ 750 mls/hr IV Q15M PRN; Protocol PRN Reason: per Hypoglycemia Standing Ord. Insulin Human Lispro (Insulin Lispro 100 Unit/Ml 3 Ml Vial) 0 unit SUBCUT QIDACHS [facility]; Protocol Last Admin: 02/18/24 07:33 Dose: Not Given Documented By: ALTAGRACIA Non-Admin Reason: No Insulin Coverage Comments: per sliding scale Magnesium Hydroxide (Milk Of Magnesia 30 Ml Oral.Susp) 30 ml PO DAILY PRN PRN Reason: Constipation Magnesium Oxide (Magnesium Oxide 400 Mg Tablet) 800 mg PO TID [facility] Last Admin: 02/17/24 22:39 Dose: 800 mg Documented By: CHETAN Melatonin (Melatonin 3 Mg Tablet) 6 mg PO BEDTIME PRN PRN Reason: Insomnia Sodium Chloride (0.9 % Sodium Chloride Flush 3 Ml Syringe) 3 ml IVFLUSH QSHIFT [facility] Last Admin: 02/18/24 00:51 Dose: Not Given Documented By: CHETAN Non-Admin Reason: Previously Administered Labs 02/18/24 05:49 02/18/24 05:49 Labs: Laboratory Results - last 24 hr 02/17/24 02/17/24 02/17/24 13:32 14:34 14:42 MCV 83.3 MCH 28.0 MCHC 33.5 RDW 15.2 Plt Count 289 D MPV 9.5 Immature Gran % (Auto) 0.7 H Neut % (Auto) 83.8 H Lymph % (Auto) 3.1 L [place] % (Auto) 10.9 Eos % (Auto) 1.3 Baso % (Auto) 0.2 Lymph # (Auto) 0.3 L [place] # (Auto) 0.9 Eos # (Auto) 0.1 Baso # (Auto) 0.0 Abs Immat Gran (auto) 0.06 H Absolute Neuts (auto) 7.2 Absolute Nucleated RBC 0.000 Nucleated RBC % (auto) 0.0 Anion Gap 15 Estim Creat Clear Calc 28.7 Estimated GFR 41 POC Glucose 181 H Random Glucose 178 H Fasting Glucose Calcium 7.9 L Magnesium < 0.6 L* Total Bilirubin 0.8 AST 24 ALT 26 Alkaline Phosphatase 76 Troponin I High Sens 3.1 Total Protein 7.3 Albumin 3.9 Urine Color [place] Urine Appearance Cloudy Urine pH 6.0 Ur Specific [place] 1.025 Urine Protein See Note Urine Glucose (UA) See Note Urine Ketones Trace Urine Blood See Note Urine Nitrite See Note Ur Leukocyte Esterase Moderate (2+) H Urine RBC 0-2 Urine WBC >50 H Ur Squamous Epith Cells 0-2 Urine Bacteria 2+ Hyaline Casts 0-2 02/17/24 02/17/24 02/18/24 18:14 20:35 05:49 MCV 82.6 MCH 27.5 MCHC 33.3 RDW 15.0 Plt Count 260 MPV 10.3 Immature Gran % (Auto) Neut % (Auto) Lymph % (Auto) [place] % (Auto) Eos % (Auto) Baso % (Auto) Lymph # (Auto) [place] # (Auto) Eos # (Auto) Baso # (Auto) Abs Immat Gran (auto) Absolute Neuts (auto) Absolute Nucleated RBC 0.000 Nucleated RBC % (auto) 0.0 Anion Gap 15 Estim Creat Clear Calc 46.4 Estimated GFR > 60 POC Glucose 100 186 H Random Glucose Fasting Glucose 105 H Calcium 7.2 L D Magnesium 1.8 Total Bilirubin AST ALT Alkaline Phosphatase Troponin I High Sens Total Protein Albumin Urine Color Urine Appearance Urine pH Ur Specific [place] Urine Protein Urine Glucose (UA) Urine Ketones Urine Blood Urine Nitrite Ur Leukocyte Esterase Urine RBC Urine WBC Ur Squamous Epith Cells Urine Bacteria Hyaline Casts 02/18/24 07:19 MCV MCH MCHC RDW Plt Count MPV Immature Gran % (Auto) Neut % (Auto) Lymph % (Auto) [place] % (Auto) Eos % (Auto) Baso % (Auto) Lymph # (Auto) [place] # (Auto) Eos # (Auto) Baso # (Auto) Abs Immat Gran (auto) Absolute Neuts (auto) Absolute Nucleated RBC Nucleated RBC % (auto) Anion Gap Estim Creat Clear Calc Estimated GFR POC Glucose 109 Random Glucose Fasting Glucose Calcium Magnesium Total Bilirubin AST ALT Alkaline Phosphatase Troponin I High Sens Total Protein Albumin Urine Color Urine Appearance Urine pH Ur Specific [place] Urine Protein Urine Glucose (UA) Urine Ketones Urine Blood Urine Nitrite Ur Leukocyte Esterase Urine RBC Urine WBC Ur Squamous Epith Cells Urine Bacteria Hyaline Casts Assessment and Plan (1) Hypomagnesemia: Status: Acute Plan 88M PMH prostate ca on RT, dm, htn, hld, presented with weakness Severe acute hypomagnesemia improved to 1.8 Possibly due to diarrhea or PPI Holding PPI continue to Replace and monitor magnesium Urinary tract infection Ceftriaxone, follow-up cultures Acute kidney injury resolved Diabetes Insulin sliding scale Hypertension Amlodipine DVT prophylaxis with heparin subQ Full code reason for continued hospitalization:awaiting cultures Quality Stroke Does the patient have a stroke diagnosis?: No VTE Prior VTE?: No VTE Risk Level:: Medical - moderate - high VTE Device Contraindication: Treatment Not Indicated VTE Drug Contraindication: N/A - Med Ordered
[2024-02-18] MEDS: Magnesium Oxide 400 MG TABLET 800 MG PO ×3 (08:48→21:11)
[2024-02-18] MEDS: Potassium Chloride ER 20 MEQ TAB.ER.PRT 40 MEQ PO (08:48)
[2024-02-18] MEDS: Cyanocobalamin (Vitamin B-12) 1,000 MCG TABLET 1000 MCG PO (08:48)
[2024-02-18] MEDS: Atorvastatin Calcium 20 MG TABLET PO (08:48)
[2024-02-18] MEDS: Aspirin Enteric Coated 81 MG TABLET.DR PO (08:48)
[2024-02-18] MEDS: Ascorbic Acid 500 MG TABLET PO (08:48)
[2024-02-18] MEDS: Ferrous Sulfate 324 MG TABLET.DR PO (08:48)
[2024-02-18] MEDS: amLODIPine Besylate 5 MG TABLET PO (08:48)
[2024-02-18] MEDS: cefTRIAXone sodium 1 GM in 0.9 % Sodium Chloride 50 ML IV (08:49)
[2024-02-18] MEDS: 0.9 % Sodium Chloride Flush 3 ML SYRINGE IVFLUSH ×3 (08:49→21:14)
[2024-02-18] MEDS: Milk of Magnesia 30 ML ORAL.SUSP PO (09:55)
[2024-02-18 11:12] LABS: Glucose, Whole Blood 208 mg/dL (60-115)
[2024-02-18] MEDS: Insulin Lispro 100 UNIT/ML 3 ML VIAL SUBCUT ×2 (11:42→21:13)
[2024-02-18 15:47] LABS: Glucose, Whole Blood 108 mg/dL (60-115)
--- NOTE | 2024-02-18 15:51 | MHC.CM.PN ---
CM MET WITH PT WITH A S[employer]IOR [employer]EL[employer] PT REPORTS HE LIVES ALONE AND IS INDEPENDENT WITH CARE PT HAS NO DME AND NO SERVICES PT SAYS HIS BROTHERS ARE HIS HCP'S. COPY REQUESTED PCP: DEVI CONSTANTINO IMM DELIVERED DCP: HOME NO SERVICES VIA SELF TRANSPORT
[2024-02-18] MEDS: 0.9 % Sodium Chloride 1,000 ML 75 ML IVCONT (18:23)
[2024-02-18 20:18] LABS: Glucose, Whole Blood 168 mg/dL (60-115)
[2024-02-19] MEDS: Acetaminophen 325 MG TABLET 650 MG PO (00:02)
[2024-02-19 03:26] VITALS: BP 125/60; PULSE 90; RESP 18; TEMP 36.6; O2SAT 95
[2024-02-19] MEDS: Heparin Sodium,Porcine 5,000 UNIT/ML VIAL 5000 UNIT SUBCUT ×2 (03:28→14:55)
[2024-02-19 07:23] LABS: Hematocrit 26.7 % (42.0-52.0); Hemoglobin 8.8 g/dl (14.0-18.0); Mean Corpuscular Hemoglobin 27.6 pg (27.0-33.0); Mean Corpuscular Volume 83.7 fL (80.0-98.0); Mean Platelet Volume 9.6 fL (9.4-12.4); Platelet Count 274 X10*3/uL (160-400); Red Blood Count 3.19 X10*6/uL (4.60-5.80); Red Cell Distribution Width 15.2 % (11.0-16.0); White Blood Count 7.1 X10*3/uL (4.8-10.8)
[2024-02-19 07:37] LABS: Anion Gap 15 (12-20); Blood Urea Nitrogen 15 mg/dL (9-16); Calcium 7.7 mg/dL (8.4-10.2); Carbon Dioxide 19 mmol/L (22-29); Chloride 111 mmol/L (96-108); Creatinine Clr Calc Pharmacy 52.2; Estimated Glomerular Filt Rate > 60; Glucose Fasting 132 mg/dL (60-99); Magnesium 1.9 mg/dL (1.6-2.6); Sodium 141 mmol/L (135-145)
[2024-02-19 07:37] LABS: Glucose, Whole Blood 120 mg/dL (60-115)
[2024-02-19 08:00] VITALS: BP 114/56; PULSE 102; RESP 18; TEMP 36.3; O2SAT 97
[2024-02-19] MEDS: amLODIPine Besylate 5 MG TABLET PO (08:22)
[2024-02-19] MEDS: Atorvastatin Calcium 20 MG TABLET PO (08:22)
[2024-02-19] MEDS: Magnesium Oxide 400 MG TABLET 800 MG PO ×3 (08:22→21:25)
[2024-02-19] MEDS: Aspirin Enteric Coated 81 MG TABLET.DR PO (08:22)
[2024-02-19] MEDS: Ascorbic Acid 500 MG TABLET PO (08:22)
[2024-02-19] MEDS: Cyanocobalamin (Vitamin B-12) 1,000 MCG TABLET 1000 MCG PO (08:22)
[2024-02-19] MEDS: Ferrous Sulfate 324 MG TABLET.DR PO (08:22)
[2024-02-19] MEDS: 0.9 % Sodium Chloride Flush 3 ML SYRINGE IVFLUSH ×3 (08:23→21:26)
[2024-02-19] MEDS: cefTRIAXone sodium 1 GM in 0.9 % Sodium Chloride 50 ML IV (08:23)
--- NOTE | 2024-02-19 08:34 | HO.PM.IMPN ---
Subjective Subjective Date of Service: 02/19/24 Interval History: black stool Physical Exam Vital Signs: Vital Signs: Last Vital Signs Temp 97.4 F 02/19/24 08:00 Pulse 102 H 02/19/24 08:00 Resp 18 02/19/24 08:00 BP 114/56 L 02/19/24 08:00 Pulse Ox 97 02/19/24 08:00 O2 Del Method Room Air 02/19/24 08:00 BMI result Body Mass Index 28.8 General: AO X 3, no acute distress Resp: CTA bilateral, no accessory muscles used CVS: S1,S2,RRR GI: soft, non tender, non distended Neuro: motor grossly intact, alert Psych: appropriate affect, appropriate insight Objective Data Active Medications Acetaminophen (Acetaminophen 325 Mg Tablet) 650 mg PO Q6H PRN PRN Reason: Pain, Mild (Pain Scale 1-3), fever or headache Last Admin: 02/19/24 00:02 Dose: 650 mg Documented By: CHETAN Amlodipine Besylate (Amlodipine Besylate 5 Mg Tablet) 5 mg PO DAILY [facility]; Protocol Last Admin: 02/19/24 08:22 Dose: 5 mg Documented By: ALTAGRACIA Ascorbic Acid (Ascorbic Acid 500 Mg Tablet) 500 mg PO DAILY [facility] Last Admin: 02/19/24 08:22 Dose: 500 mg Documented By: ALTAGRACIA Aspirin (Aspirin Enteric Coated 81 Mg Tablet.) 81 mg PO DAILY [facility] Last Admin: 02/19/24 08:22 Dose: 81 mg Documented By: ALTAGRACIA Atorvastatin Calcium (Atorvastatin Calcium 20 Mg Tablet) 20 mg PO DAILY [facility] Last Admin: 02/19/24 08:22 Dose: 20 mg Documented By: ALTAGRACIA Calcium Carbonate (Calcium Carbonate 750 Mg Tab.Chew) 750 mg PO Q4H PRN PRN Reason: Heartburn Cyanocobalamin (Cyanocobalamin (Vitamin B-12) 1,000 Mcg Tablet) 1,000 mcg PO DAILY [facility] Last Admin: 02/19/24 08:22 Dose: 1,000 mcg Documented By: ALTAGRACIA Ferrous Sulfate (Ferrous Sulfate 324 Mg Tablet.) 324 mg PO DAILY [facility] Last Admin: 02/19/24 08:22 Dose: 324 mg Documented By: ALTAGRACIA Glucose (Glucose Gel 15 Gm Gel..Gram.) 15 gm PO Q15M PRN; Protocol PRN Reason: per Hypoglycemia Standing Ord. Heparin Sodium (Porcine) (Heparin Sodium,Porcine 5,000 Unit/Ml Vial) 5,000 unit SUBCUT Q12H [facility] Last Admin: 02/19/24 03:28 Dose: 5,000 unit Documented By: CHTEAN Ceftriaxone Sodium 1 gm/ (Sodium Chloride) 50 mls @ 100 mls/hr IV Q24H [facility] Last Admin: 02/19/24 08:23 Dose: 100 mls/hr Documented By: ALTAGRACIA Dextrose (D10) 250 mls @ 750 mls/hr IV Q15M PRN; Protocol PRN Reason: per Hypoglycemia Standing Ord. Insulin Human Lispro (Insulin Lispro 100 Unit/Ml 3 Ml Vial) 0 unit SUBCUT QIDACHS [facility]; Protocol Last Admin: 02/19/24 08:15 Dose: Not Given Documented By: ALTAGRACIA Non-Admin Reason: No Insulin Coverage Magnesium Hydroxide (Milk Of Magnesia 30 Ml Oral.Susp) 30 ml PO DAILY PRN PRN Reason: Constipation Last Admin: 02/18/24 09:55 Dose: 30 ml Documented By: ALTAGRACIA Magnesium Oxide (Magnesium Oxide 400 Mg Tablet) 800 mg PO TID [facility] Last Admin: 02/19/24 08:22 Dose: 800 mg Documented By: ALTAGRACIA Melatonin (Melatonin 3 Mg Tablet) 6 mg PO BEDTIME PRN PRN Reason: Insomnia Sodium Chloride (0.9 % Sodium Chloride Flush 3 Ml Syringe) 3 ml IVFLUSH QSHIFT [facility] Last Admin: 02/19/24 08:23 Dose: 3 ml Documented By: ALTAGRACIA Labs 02/19/24 07:03 02/19/24 07:03 Labs: Laboratory Results - last 24 hr 02/18/24 02/18/24 02/18/24 10:53 15:41 20:11 MCV MCH MCHC RDW Plt Count MPV Absolute Nucleated RBC Nucleated RBC % (auto) Anion Gap Estim Creat Clear Calc Estimated GFR POC Glucose 208 H 108 168 H Fasting Glucose Calcium Magnesium 02/19/24 02/19/24 07:03 07:26 MCV 83.7 MCH 27.6 MCHC 33.0 RDW 15.2 Plt Count 274 MPV 9.6 Absolute Nucleated RBC 0.000 Nucleated RBC % (auto) 0.0 Anion Gap 15 Estim Creat Clear Calc 52.2 Estimated GFR > 60 POC Glucose 120 H Fasting Glucose 132 H Calcium 7.7 L D Magnesium 1.9 Microbiology Microbiology Results: Microbiology 02/17/24 Unknown Urine Culture - Preliminary Urine clean catch - Clean Catch Midstream Gram negative leno Assessment and Plan (1) Hypomagnesemia: Status: Acute Plan 88M PMH prostate ca on RT, dm, htn, hld, presented with weakness Severe acute hypomagnesemia improved to 1.9 Possibly due to diarrhea or PPI Holding PPI continue po mag black stool check stool occult, montior cbc Urinary tract infection Ceftriaxone, follow-up cultures Acute kidney injury resolved Diabetes Insulin sliding scale Hypertension Amlodipine DVT prophylaxis with heparin subQ Full code reason for continued hospitalization:awaiting cultures Quality Stroke Does the patient have a stroke diagnosis?: No VTE Prior VTE?: No VTE Risk Level:: Medical - moderate - high VTE Device Contraindication: Treatment Not Indicated VTE Drug Contraindication: N/A - Med Ordered
[2024-02-19 09:07] LABS: OBS Int Ctl Valid YES; OBS1 NEGATIVE (NEGATIVE)
[2024-02-19 11:52] LABS: Glucose, Whole Blood 120 mg/dL (60-115)
[2024-02-19 11:56] VITALS: BP 122/56; PULSE 82; RESP 18; TEMP 36.4; O2SAT 97
[2024-02-19 16:00] VITALS: BP 119/57; PULSE 88; RESP 19; TEMP 36.8; O2SAT 96
[2024-02-19 16:33] LABS: Glucose, Whole Blood 146 mg/dL (60-115)
[2024-02-19 19:56] VITALS: BP 136/63; PULSE 98; RESP 19; TEMP 37; O2SAT 98
[2024-02-19 20:36] LABS: Glucose, Whole Blood 152 mg/dL (60-115)
[2024-02-20] VITALS (8 sets, daily range): BP systolic 112–159; BP diastolic 56–70; PULSE 72–100; RESP 18–19; TEMP 36.2–37.2; O2SAT 95–98
[2024-02-20] MEDS: Heparin Sodium,Porcine 5,000 UNIT/ML VIAL 5000 UNIT SUBCUT ×2 (03:23→17:46)
[2024-02-20 06:55] LABS: Hemoglobin 8.9 g/dl (14.0-18.0); Mean Corpuscular Hemoglobin 27.6 pg (27.0-33.0); Mean Corpuscular Volume 83.9 fL (80.0-98.0); Mean Platelet Volume 10.1 fL (9.4-12.4); Platelet Count 303 X10*3/uL (160-400); Red Blood Count 3.22 X10*6/uL (4.60-5.80); Red Cell Distribution Width 15.3 % (11.0-16.0); White Blood Count 7.5 X10*3/uL (4.8-10.8)
[2024-02-20 07:04] LABS: Anion Gap 9 (12-20); Blood Urea Nitrogen 14 mg/dL (9-16); Calcium 7.9 mg/dL (8.4-10.2); Carbon Dioxide 21 mmol/L (22-29); Chloride 111 mmol/L (96-108); Creatinine Clr Calc Pharmacy 57.4; Estimated Glomerular Filt Rate > 60; Glucose Fasting 140 mg/dL (60-99); Potassium 4.3 mmol/L (3.3-5.1); Sodium 137 mmol/L (135-145)
[2024-02-20 08:31] LABS: Glucose, Whole Blood 151 mg/dL (60-115)
--- NOTE | 2024-02-20 08:34 | P.PNIM_ITS ---
Subjective Subjective Date of Service: 02/20/24 Interval History: stools less dark, still with dysuria Physical Exam 2 Vital Signs: Vital Signs: Last Vital Signs Temp 97.2 F 02/20/24 08:00 Pulse 95 02/20/24 08:00 Resp 18 02/20/24 08:00 BP 135/63 02/20/24 08:00 Pulse Ox 96 02/20/24 08:00 O2 Del Method Room Air 02/20/24 08:00 BMI result Body Mass Index 28.8 General: AO X 3, no acute distress Resp: CTA bilateral, no accessory muscles used CVS: S1,S2,RRR GI: soft, non tender, non distended Neuro: motor grossly intact, alert Psych: appropriate affect, appropriate insight Objective Data Active Medications Acetaminophen (Acetaminophen 325 Mg Tablet) 650 mg PO Q6H PRN PRN Reason: Pain, Mild (Pain Scale 1-3), fever or headache Last Admin: 02/19/24 00:02 Dose: 650 mg Documented By: CHETAN Amlodipine Besylate (Amlodipine Besylate 5 Mg Tablet) 5 mg PO DAILY [facility]; Protocol Last Admin: 02/19/24 08:22 Dose: 5 mg Documented By: ALTAGRACIA Ascorbic Acid (Ascorbic Acid 500 Mg Tablet) 500 mg PO DAILY [facility] Last Admin: 02/19/24 08:22 Dose: 500 mg Documented By: ALTAGRACIA Aspirin (Aspirin Enteric Coated 81 Mg Tablet.) 81 mg PO DAILY [facility] Last Admin: 02/19/24 08:22 Dose: 81 mg Documented By: ALTAGRACIA Atorvastatin Calcium (Atorvastatin Calcium 20 Mg Tablet) 20 mg PO DAILY [facility] Last Admin: 02/19/24 08:22 Dose: 20 mg Documented By: ALTAGRACIA Calcium Carbonate (Calcium Carbonate 750 Mg Tab.Chew) 750 mg PO Q4H PRN PRN Reason: Heartburn Cyanocobalamin (Cyanocobalamin (Vitamin B-12) 1,000 Mcg Tablet) 1,000 mcg PO DAILY [facility] Last Admin: 02/19/24 08:22 Dose: 1,000 mcg Documented By: ALTAGRACIA Ferrous Sulfate (Ferrous Sulfate 324 Mg Tablet.) 324 mg PO DAILY [facility] Last Admin: 02/19/24 08:22 Dose: 324 mg Documented By: ALTAGRACIA Glucose (Glucose Gel 15 Gm Gel..Gram.) 15 gm PO Q15M PRN; Protocol PRN Reason: per Hypoglycemia Standing Ord. Heparin Sodium (Porcine) (Heparin Sodium,Porcine 5,000 Unit/Ml Vial) 5,000 unit SUBCUT Q12H [facility] Last Admin: 02/20/24 03:23 Dose: 5,000 unit Documented By: MARLA Dextrose (D10) 250 mls @ 750 mls/hr IV Q15M PRN; Protocol PRN Reason: per Hypoglycemia Standing Ord. Meropenem 1 gm/ Sodium (Chloride) 100 mls @ 200 mls/hr IV Q8H [facility] Last Infusion: 02/20/24 03:45 Dose: Infused Documented By: MARLA Insulin Human Lispro (Insulin Lispro 100 Unit/Ml 3 Ml Vial) 0 unit SUBCUT QIDACHS [facility]; Protocol Last Admin: 02/19/24 22:16 Dose: Not Given Documented By: MARLA Non-Admin Reason: pt. refused sliding scale coverage. Magnesium Hydroxide (Milk Of Magnesia 30 Ml Oral.Susp) 30 ml PO DAILY PRN PRN Reason: Constipation Last Admin: 02/18/24 09:55 Dose: 30 ml Documented By: ALTAGRACIA Magnesium Oxide (Magnesium Oxide 400 Mg Tablet) 800 mg PO TID [facility] Last Admin: 02/19/24 21:25 Dose: 800 mg Documented By: MARLA Melatonin (Melatonin 3 Mg Tablet) 6 mg PO BEDTIME PRN PRN Reason: Insomnia Sodium Chloride (0.9 % Sodium Chloride Flush 3 Ml Syringe) 3 ml IVFLUSH QSHIFT [facility] Last Admin: 02/19/24 21:26 Dose: 3 ml Documented By: MARLA Labs 02/20/24 06:05 02/20/24 06:05 Labs: Laboratory Results - last 24 hr 02/19/24 02/19/24 02/19/24 08:41 11:48 16:25 MCV MCH MCHC RDW Plt Count MPV Absolute Nucleated RBC Nucleated RBC % (auto) Anion Gap Estim Creat Clear Calc Estimated GFR POC Glucose 120 H 146 H Fasting Glucose Calcium Stool Occult Blood NEGATIVE 02/19/24 02/20/24 02/20/24 20:32 06:05 08:16 MCV 83.9 MCH 27.6 MCHC 33.0 RDW 15.3 Plt Count 303 MPV 10.1 Absolute Nucleated RBC 0.000 Nucleated RBC % (auto) 0.0 Anion Gap 9 L Estim Creat Clear Calc 57.4 Estimated GFR > 60 POC Glucose 152 H 151 H Fasting Glucose 140 H Calcium 7.9 L Stool Occult Blood Microbiology Microbiology Results: Microbiology 02/17/24 Unknown Urine Culture - Final Urine clean catch - Clean Catch Midstream Escherichia coli Assessment and Plan (1) Hypomagnesemia: Status: Acute Plan 88M PMH prostate ca on RT, dm, htn, hld, presented with weakness Severe acute hypomagnesemia resolved Possibly due to diarrhea or PPI Holding PPI continue po mag black stool negative stool occult, stable cbc, doubt melena Urinary tract infection due to esbl ecoli changed to merem 02/19/24, follow up ID Acute kidney injury resolved Diabetes Insulin sliding scale Hypertension Amlodipine DVT prophylaxis with heparin subQ Full code reason for continued hospitalization:iv abx for esbl, ID eval Quality Stroke Does the patient have a stroke diagnosis?: No VTE Prior VTE?: No VTE Risk Level:: Medical - moderate - high VTE Device Contraindication: Treatment Not Indicated VTE Drug Contraindication: N/A - Med Ordered
[2024-02-20] MEDS: Ferrous Sulfate 324 MG TABLET.DR PO (08:37)
[2024-02-20] MEDS: Ascorbic Acid 500 MG TABLET PO (08:37)
[2024-02-20] MEDS: Aspirin Enteric Coated 81 MG TABLET.DR PO (08:37)
[2024-02-20] MEDS: Cyanocobalamin (Vitamin B-12) 1,000 MCG TABLET 1000 MCG PO (08:37)
[2024-02-20] MEDS: Atorvastatin Calcium 20 MG TABLET PO (08:37)
[2024-02-20] MEDS: amLODIPine Besylate 5 MG TABLET PO (08:37)
[2024-02-20] MEDS: Magnesium Oxide 400 MG TABLET 800 MG PO ×3 (08:37→22:40)
[2024-02-20] MEDS: 0.9 % Sodium Chloride Flush 3 ML SYRINGE IVFLUSH ×3 (08:38→22:41)
[2024-02-20] MEDS: Acetaminophen 325 MG TABLET 650 MG PO (08:50)
--- NOTE | 2024-02-20 10:49 | MHC.CM.PN ---
Per ROUNDS discussion, Patient MAY be medically cleared for dc to home today pending ID (if PO ABT is recommended Patient can be dc'd today)home is the goal and CM has initiated and will follow for dc planning.
[2024-02-20] MEDS: Insulin Lispro 100 UNIT/ML 3 ML VIAL SUBCUT ×3 (11:32→22:40)
[2024-02-20 11:36] LABS: Glucose, Whole Blood 168 mg/dL (60-115)
--- NOTE | 2024-02-20 15:43 | W.PM.IDCN ---
History of Present Illness Data of Consult Service Date: 02/20/24 Primary Care Provider: Jolly London MD HPI Reason for consult: painful urination,ESBL UTI He presents with painful urination. He has no fever or chills now. He has ESBL E coli. Review of Systems Review of Systems: Yes all other systems are reviewed and are negative PMFSH Past Medical History Medical History Tubular adenoma of colon Neurogenic bladder Chronic anemia HTN (hypertension) Prostate cancer Hypercholesterolemia Diabetes mellitus Renal cyst Choledocholithiasis Diverticulosis Family History Family History Unknown Cancer Family history: reviewed and not pertinent Surgical History Surgical History History of colonoscopy History of hernia surgery H/O prostatectomy Social History Social History Household Members: None Housing: Apartment Alcohol intake: never Patient Tobacco Use Status: Never used Tobacco Use of substances other than those prescribed or required for medical reasons: No Currently Displaying Signs/Symptoms of Drug Intoxication Withdrawal: No Have you been hit, kicked, punched, or otherwise hurt by someone within the past year? If so, by whom?: No Do you feel safe in your current relationship?: No Current Relationship Is there a partner from a previous relationship who is making you feel unsafe now?: No Are you made to feel afraid or neglected: No Advance Directives: No Advance Directives Information Provided: No Do you have a plan to hurt others: No Plan Recently lost weight without trying: Unsure How much weight loss: Unsure Eating poorly because of decreased appetite: Yes Nutrition screen score: 5 Nutrition Risks: Anorexia service: No Current occupational status: retired Current occupation: right handed Meds Allergies Allergy/AdvReac Type Severity Reaction Status Date / Time cephalexin Allergy Intermediate Constipatio Verified 02/17/24 13:24 n oxycodone [From Percocet] AdvReac Mild VOMITING/DI Verified 02/17/24 13:24 ZZINES percocet Allergy Unknown nausea/dizz Uncoded 02/03/24 11:55 iness Active Medications: Current Medications Acetaminophen (Acetaminophen 325 Mg Tablet) 650 mg PO Q6H PRN PRN Reason: Pain, Mild (Pain Scale 1-3), fever or headache Last Admin: 02/20/24 08:50 Dose: 650 mg Amlodipine Besylate (Amlodipine Besylate 5 Mg Tablet) 5 mg PO DAILY [facility]; Protocol Last Admin: 02/20/24 08:37 Dose: 5 mg Ascorbic Acid (Ascorbic Acid 500 Mg Tablet) 500 mg PO DAILY [facility] Last Admin: 02/20/24 08:37 Dose: 500 mg Aspirin (Aspirin Enteric Coated 81 Mg Tablet.) 81 mg PO DAILY [facility] Last Admin: 02/20/24 08:37 Dose: 81 mg Atorvastatin Calcium (Atorvastatin Calcium 20 Mg Tablet) 20 mg PO DAILY [facility] Last Admin: 02/20/24 08:37 Dose: 20 mg Calcium Carbonate (Calcium Carbonate 750 Mg Tab.Chew) 750 mg PO Q4H PRN PRN Reason: Heartburn Cyanocobalamin (Cyanocobalamin (Vitamin B-12) 1,000 Mcg Tablet) 1,000 mcg PO DAILY [facility] Last Admin: 02/20/24 08:37 Dose: 1,000 mcg Ferrous Sulfate (Ferrous Sulfate 324 Mg Tablet.) 324 mg PO DAILY [facility] Last Admin: 02/20/24 08:37 Dose: 324 mg Glucose (Glucose Gel 15 Gm Gel..Gram.) 15 gm PO Q15M PRN; Protocol PRN Reason: per Hypoglycemia Standing Ord. Heparin Sodium (Porcine) (Heparin Sodium,Porcine 5,000 Unit/Ml Vial) 5,000 unit SUBCUT Q12H [facility] Last Admin: 02/20/24 03:23 Dose: 5,000 unit Dextrose (D10) 250 mls @ 750 mls/hr IV Q15M PRN; Protocol PRN Reason: per Hypoglycemia Standing Ord. Meropenem 1 gm/ Sodium (Chloride) 100 mls @ 200 mls/hr IV Q8H [facility] Last Infusion: 02/20/24 12:05 Dose: Infused Insulin Human Lispro (Insulin Lispro 100 Unit/Ml 3 Ml Vial) 0 unit SUBCUT QIDACHS [facility]; Protocol Last Admin: 02/20/24 11:32 Dose: 2 unit Magnesium Hydroxide (Milk Of Magnesia 30 Ml Oral.Susp) 30 ml PO DAILY PRN PRN Reason: Constipation Last Admin: 02/18/24 09:55 Dose: 30 ml Magnesium Oxide (Magnesium Oxide 400 Mg Tablet) 800 mg PO TID [facility] Last Admin: 02/20/24 08:37 Dose: 800 mg Melatonin (Melatonin 3 Mg Tablet) 6 mg PO BEDTIME PRN PRN Reason: Insomnia Sodium Chloride (0.9 % Sodium Chloride Flush 3 Ml Syringe) 3 ml IVFLUSH QSHIFT [facility] Last Admin: 02/20/24 08:38 Dose: 3 ml Home Medications ?Medication ?Instructions ?Recorded ?Confirmed ?Last Taken ?Type amlodipine 5 mg tablet 5 mg PO DAILY 04/12/22 02/17/24 02/16/24 06:30 History aspirin 81 mg tablet,delayed 81 mg PO DAILY 04/12/22 02/17/24 02/16/24 06:30 History release atorvastatin 20 mg tablet 20 mg PO DAILY 04/12/22 02/17/24 02/16/24 06:30 History blood sugar diagnostic (FreeStyle #10 ea 04/12/22 08/03/23 Unknown History Lite Strips) ferrous sulfate 325 mg (65 mg 325 mg PO DAILY 04/12/22 02/17/24 02/16/24 06:30 History iron) tablet (FeroSul) lancets 33 gauge (TRUEplus Lancets) #100 ea 04/12/22 08/03/23 Unknown History lisinopril 40 mg tablet 40 mg PO DAILY 04/12/22 02/17/24 02/16/24 06:30 History mirabegron 50 mg tablet,extended 50 mg PO DAILY 04/12/22 02/17/24 02/16/24 06:30 History release 24 hr (Myrbetriq) omeprazole 20 mg capsule,delayed 20 mg PO DAILY@0630 04/12/22 02/17/24 02/16/24 06:30 History release pioglitazone 45 mg tablet 45 mg PO DAILY 04/12/22 02/17/24 02/16/24 06:30 History ascorbic acid (vitamin C) 500 mg 500 mg PO DAILY 02/17/24 02/17/24 02/16/24 06:30 History tablet (Vitamin C) cyanocobalamin (vitamin B-12) 1,000 mcg PO DAILY 02/17/24 02/17/24 02/16/24 06:30 History 1,000 mcg tablet metformin 750 mg tablet,extended 750 mg PO BIDWM 02/17/24 02/17/2402/15/24 06:30 History release 24 hr Physical Exam Vital Signs: Vital Signs: Last Vital Signs Temp 97.1 F 02/20/24 15:39 Pulse 86 02/20/24 15:39 Resp 18 02/20/24 15:39 BP 127/60 02/20/24 15:39 Pulse Ox 98 02/20/24 15:39 O2 Del Method Room Air 02/20/24 15:39 BMI result Body Mass Index 28.8 Const: General: cooperative HEENT: Head: Yes normal to inspection Face and sinus: Yes normal facial exam Mouth: Normal oral and palatal mucosa present Teeth and gingiva: dentition normal Eyes: General: appearance normal, both eyes and all related structures Pupils: Equal, round and reactive pupils present Resp: Effort & Inspection: normal respiratory effort Cardio: Rate: regular rate Rhythm: regular rhythm GI: Palpation (GI): Soft to palpation and nontender : General: Yes no CVA tenderness Back/Spine/Pelvis: Back: no CVA tenderness Skin: General skin exam: no rashes or lesions noted Neuro: General: moves all extremities Cranial nerves: Yes Equal, round and reactive pupils present Extrem: General: Yes normal to inspection Psych: Appearance: grossly normal Results Labs 02/20/24 06:05 02/20/24 06:05 Labs: Short CBC 02/20/24 Range/Units 06:05 WBC 7.5 (4.8-10.8) X10*3/uL Hgb 8.9 L (14.0-18.0) g/dl Hct 27.0 L (42.0-52.0) % Plt Count 303 (160-400) X10*3/uL BMP 02/20/24 06:05 Sodium 137 Potassium 4.3 Chloride 111 H Carbon Dioxide 21 L BUN 14 Creatinine 0.80 Calcium 7.9 L Microbiology Microbiology Results: Microbiology 02/17/24 Unknown Urine clean catch - Clean Catch Midstream Urine Culture - Final Escherichia coli Assessment and Plan (1) Acute UTI: Status: Acute (2) Dysuria: Status: Acute Plan He has acute pain He has ESBL UTI with no good oral alternative. Would finish 10 days Ertapenem. Prostate cancer history have Urology evaluate.
[2024-02-20 16:28] LABS: Glucose, Whole Blood 170 mg/dL (60-115)
[2024-02-20 19:59] LABS: Glucose, Whole Blood 152 mg/dL (60-115)
[2024-02-21 03:19] VITALS: BP 132/68; PULSE 91; RESP 18; TEMP 36.6; O2SAT 95
[2024-02-21] MEDS: Heparin Sodium,Porcine 5,000 UNIT/ML VIAL 5000 UNIT SUBCUT (03:57)
[2024-02-21 07:41] LABS: Glucose, Whole Blood 123 mg/dL (60-115)
[2024-02-21 07:50] VITALS: BP 147/69; PULSE 98; RESP 20; TEMP 37.1; O2SAT 94
[2024-02-21 08:56] VITALS: BP 147/69
[2024-02-21] MEDS: Ferrous Sulfate 324 MG TABLET.DR PO (08:56)
[2024-02-21] MEDS: Cyanocobalamin (Vitamin B-12) 1,000 MCG TABLET 1000 MCG PO (08:56)
[2024-02-21] MEDS: Atorvastatin Calcium 20 MG TABLET PO (08:56)
[2024-02-21] MEDS: amLODIPine Besylate 5 MG TABLET PO (08:56)
[2024-02-21] MEDS: Magnesium Oxide 400 MG TABLET 800 MG PO (08:56)
[2024-02-21] MEDS: Acetaminophen 325 MG TABLET 650 MG PO (08:56)
[2024-02-21] MEDS: Ascorbic Acid 500 MG TABLET PO (08:57)
[2024-02-21] MEDS: 0.9 % Sodium Chloride Flush 3 ML SYRINGE IVFLUSH (08:57)
[2024-02-21] MEDS: Aspirin Enteric Coated 81 MG TABLET.DR PO (08:57)
--- NOTE | 2024-02-21 09:25 | P.PNIM_ITS ---
Subjective Subjective Date of Service: 02/21/24 Interval History: intermittent consitpation and diarrhea, now with diarrhea Physical Exam 2 Vital Signs: Vital Signs: Last Vital Signs Temp 98.7 F 02/21/24 07:50 Pulse 98 02/21/24 07:50 Resp 20 02/21/24 07:50 BP 147/69 H 02/21/24 08:56 Pulse Ox 94 02/21/24 07:50 O2 Del Method Room Air 02/21/24 07:50 BMI result Body Mass Index 28.8 Const: General: cooperative HEENT: Head: Yes normal to inspection Face and sinus: Yes normal facial exam Mouth: Normal oral and palatal mucosa present Teeth and gingiva: d entition normal Eyes: General: appearance normal, both eyes and all related structures P upils: Equal, round and reactive pupils present Resp: Effort & Inspection: normal respiratory effort Cardio: Rate: regular rate Rhythm: regular rhythm GI: Palpation (GI): Soft to palpation and nontender : General: Yes no CVA tenderness Back/Spine/Pelvis: Back: no CVA tenderness Skin: General skin exam: no rashes or lesions noted Neuro: General: moves all extremities Cranial nerves: Yes Equal, round and reactive pupils present Extrem: General: Yes normal to inspection Psych: Appearance: grossly normal Objective Data Active Medications Acetaminophen (Acetaminophen 325 Mg Tablet) 650 mg PO Q6H PRN PRN Reason: Pain, Mild (Pain Scale 1-3), fever or headache Last Admin: 02/21/24 08:56 Dose: 650 mg Documented By: KAYLEE Amlodipine Besylate (Amlodipine Besylate 5 Mg Tablet) 5 mg PO DAILY [facility]; Protocol Last Admin: 02/21/24 08:56 Dose: 5 mg Documented By: KAYLEE Ascorbic Acid (Ascorbic Acid 500 Mg Tablet) 500 mg PO DAILY [facility] Last Admin: 02/21/24 08:57 Dose: 500 mg Documented By: KAYLEE Aspirin (Aspirin Enteric Coated 81 Mg Tablet.) 81 mg PO DAILY [facility] Last Admin: 02/21/24 08:57 Dose: 81 mg Documented By: KAYLEE Atorvastatin Calcium (Atorvastatin Calcium 20 Mg Tablet) 20 mg PO DAILY [facility] Last Admin: 02/21/24 08:56 Dose: 20 mg Documented By: KAYLEE Calcium Carbonate (Calcium Carbonate 750 Mg Tab.Chew) 750 mg PO Q4H PRN PRN Reason: Heartburn Cyanocobalamin (Cyanocobalamin (Vitamin B-12) 1,000 Mcg Tablet) 1,000 mcg PO DAILY [facility] Last Admin: 02/21/24 08:56 Dose: 1,000 mcg Documented By: KAYLEE Ferrous Sulfate (Ferrous Sulfate 324 Mg Tablet.Dr) 324 mg PO DAILY [facility] Last Admin: 02/21/24 08:56 Dose: 324 mg Documented By: KAYLEE Glucose (Glucose Gel 15 Gm Gel..Gram.) 15 gm PO Q15M PRN; Protocol PRN Reason: per Hypoglycemia Standing Ord. Heparin Sodium (Porcine) (Heparin Sodium,Porcine 5,000 Unit/Ml Vial) 5,000 unit SUBCUT Q12H [facility] Last Admin: 02/21/24 03:57 Dose: 5,000 unit Documented By: MARLA Dextrose (D10) 250 mls @ 750 mls/hr IV Q15M PRN; Protocol PRN Reason: per Hypoglycemia Standing Ord. Meropenem 1 gm/ Sodium (Chloride) 100 mls @ 200 mls/hr IV Q8H [facility] Last Infusion: 02/21/24 04:27 Dose: Infused Documented By: MARLA Insulin Human Lispro (Insulin Lispro 100 Unit/Ml 3 Ml Vial) 0 unit SUBCUT QIDACHS [facility]; Protocol Last Admin: 02/21/24 07:42 Dose: Not Given Documented By: KAYLEE Non-Admin Reason: No Insulin Coverage Magnesium Hydroxide (Milk Of Magnesia 30 Ml Oral.Susp) 30 ml PO DAILY PRN PRN Reason: Constipation Last Admin: 02/18/24 09:55 Dose: 30 ml Documented By: ALTAGRACIA Magnesium Oxide (Magnesium Oxide 400 Mg Tablet) 800 mg PO TID [facility] Last Admin: 02/21/24 08:56 Dose: 800 mg Documented By: KAYLEE Melatonin (Melatonin 3 Mg Tablet) 6 mg PO BEDTIME PRN PRN Reason: Insomnia Sodium Chloride (0.9 % Sodium Chloride Flush 3 Ml Syringe) 3 ml IVFLUSH QSHIFT [facility] Last Admin: 02/21/24 08:57 Dose: 3 ml Documented By: KAYLEE Labs 02/20/24 06:05 02/20/24 06:05 Labs: Laboratory Results - last 24 hr 02/20/24 02/20/24 02/20/24 11:30 16:17 19:48 POC Glucose 168 H 170 H 152 H 02/21/24 07:28 POC Glucose 123 H Microbiology Microbiology Results: Microbiology 02/17/24 Unknown Urine Culture - Final Urine clean catch - Clean Catch Midstream Escherichia coli Assessment and Plan (1) Hypomagnesemia: Status: Acute Plan 88M PMH prostate ca on RT, dm, htn, hld, presented with weakness Severe acute hypomagnesemia resolved Possibly due to diarrhea or PPI Holding PPI continue po mag black stool negative stool occult, stable cbc, doubt melena diarrhea imodium prn Urinary tract infection due to esbl ecoli changed to merem 02/19/24, ID appreciated, 10d ertapenem, follow up outpatient Acute kidney injury resolved Diabetes Insulin sliding scale Hypertension Amlodipine DVT prophylaxis with heparin subQ Full code reason for continued hospitalization:iv abx for esbl Quality Stroke Does the patient have a stroke diagnosis?: No VTE Prior VTE?: No VTE Risk Level:: Medical - moderate - high VTE Device Contraindication: Treatment Not Indicated VTE Drug Contraindication: N/A - Med Ordered
--- NOTE | 2024-02-21 10:41 | MHC.CM.PN ---
Per ROUNDS discussion, Patient is medically cleared for dc. CM met with Patient at bedside with a [facility] [employer] Curer. Patient does not feel that he could learn and be comfortable with managing the IV ABT at home. With Patient's approval, referrals have been made to area SNFs that accept Patient's insurance. has been made MD aware and CM will follow.
[2024-02-21 10:57] LABS: Glucose, Whole Blood 209 mg/dL (60-115)
[2024-02-21 11:07] VITALS: BP 101/59; PULSE 85; RESP 20; TEMP 36; O2SAT 97
[2024-02-21] MEDS: Insulin Lispro 100 UNIT/ML 3 ML VIAL SUBCUT (11:38)
[2024-02-21 15:27] VITALS: BP 138/64; PULSE 84; RESP 20; TEMP 36.1; O2SAT 97
--- NOTE | 2024-02-21 15:37 | PM.DS ---
DS: Providers Provider Date of Service: 02/21/24 Date of admission: 02/17/24 16:04 Primary care physician: Jolly London MD Consults: 02/19/24 10:44 Consult to Infectious Diseases Routine Consulting Provider: [facility] Reason for consultation: esbl uti DS: Diagnosis Discharge Diagnosis (1) Hypomagnesemia: Status: Acute DS: Summary Hospital Course Hospital Course: from initial hpi: 88M PMH prostate ca on RT, dm, htn, hld, presented with weakness. Patient states he has been feeling weak for about 1 week. Also reporting significant dysuria with burning and sediment noticed in his urine. Also difficulty achieving stream. Two days prior to presentation was having significant loose diarrhea but has not had bowel movement in about 2 days. Denies any blood in stool, fevers, chills, abdominal pain. Is reporting some left flank pain. In ED noted to have elevated creatinine of 1.66 increased from 1.22. And magnesium below 0.6. hospital course: Patient was admitted for severe acute hypomagnesemia. He was given supplement. His PPI was discontinued and hypomagnesemia resolved. Also noted to have black stool but this was occult blood negative and CBC remained stable so unlikely melena. For dysuria found to have urinary tract infection due to ESBL E coli was seen by infectious disease who recommended 10 day total of ertapenem to be completed at rehab end date 02/28/2024. For acute kidney injury his lisinopril was discontinued and creatinine improved to normal. For diabetes was continue insulin sliding scale. For hypertension was continued on amlodipine. Time Attestation Discharge Coordination Time (in mins): 34 Quality: Safe Use of Opioids Does Pt have an Active Cancer Diagnosis on the Problem List?: No Quality: Stroke Does the patient have a stroke diagnosis?: No Physical Exam Vital Signs: Vital Signs: Last Vital Signs Temp 96.9 F 02/21/24 15:27 Pulse 84 02/21/24 15:27 Resp 20 02/21/24 15:27 BP 138/64 02/21/24 15:27 Pulse Ox 97 02/21/24 15:27 O2 Del Method Room Air 02/21/24 15:27 BMI result Body Mass Index 28.8 Const: General: cooperative HEENT: Head: Yes normal to inspection Face and sinus: Yes normal facial exam Mouth: Normal oral and palatal mucosa present Teeth and gingiva: dentition normal Eyes: General: appearance normal, both eyes and all related structures Pupils: Equal, round and reactive pupils present Resp: Effort & Inspection: normal respiratory effort Cardio: Rate: regular rate Rhythm: regular rhythm GI: Palpation (GI): Soft to palpation and nontender : General: Yes no CVA tenderness Back/Spine/Pelvis: Back: no CVA tenderness Skin: General skin exam: no rashes or lesions noted Neuro: General: moves all extremities Cranial nerves: Yes Equal, round and reactive pupils present Extrem: General: Yes normal to inspection Psych: Appearance: grossly normal DS: Data Data Completed and Pending Labs on day of discharge: Laboratory Results - last 24 hr 02/20/24 02/20/24 02/21/24 16:17 19:48 07:28 POC Glucose 170 H 152 H 123 H 02/21/24 10:53 POC Glucose 209 H Discharge Plan Discharge Anticipated Discharge Date/Time: 02/21/24 15:34 Patient Disposition: Xfer SNF Discharge Diagnosis: uti Referrals: Jolly London MD [Primary Care Provider] - 1 Week Discharge Medications: New magnesium oxide 400 mg (241.3 mg magnesium) Tablet 800 mg PO TID Qty: 0 0RF phenazopyridine 100 mg Tablet 100 mg PO TIDWM PRN (Reason: burning) Qty: 0 0RF ertapenem 1 gram recon soln 1 g IV DAILY Qty: 10 0RF Continued cyanocobalamin (vitamin B-12) 1,000 mcg tablet 1,000 mcg PO DAILY ascorbic acid (vitamin C) [Vitamin C] 500 mg tablet 500 mg PO DAILY metformin 750 mg tablet extended release 24 hr 750 mg PO BIDWM aspirin 81 mg tablet,delayed release (DR/EC) 81 mg PO DAILY amlodipine 5 mg tablet 5 mg PO DAILY (DME) lancets [TRUEplus Lancets] 33 gauge misc See Rx Instructions .ROUTE .MEDSUPPLY Qty: 100 Rx Instructions: As directed (DME) FreeStyle Lite Strips Strip See Rx Instructions .ROUTE .MEDSUPPLY Qty: 10 Rx Instructions: As directed atorvastatin 20 mg tablet 20 mg PO DAILY ferrous sulfate [FeroSul] 325 mg (65 mg iron) tablet 325 mg PO DAILY pioglitazone 45 mg tablet 45 mg PO DAILY Myrbetriq 50 mg tablet extended release 24 hr 50 mg PO DAILY Discontinued omeprazole 20 mg capsule,delayed release(DR/EC) 20 mg PO DAILY@0630 lisinopril 40 mg tablet 40 mg PO DAILY Discharge Orders: Discharge Order (Routine); Ordered 02/21/24 Ordered By: Eddie No Diet: Advance to usual diet Activity on Discharge: As tolerated Stand Alone Forms: Patient Portal Discharge page Print Language: Turkish Activity Restrictions/Additional Instructions: You were seen today for burning with urination and found to have a UTI. Please call follow up with urologist. You had labs and a urine sent which was normal. Care Plan Goals: recovery Health Concerns: uti Plan of Treatment: 8 more days ertapenem, follow up [facility] Assessment: see above Patient Instructions: Prostate Cancer (DC), Dysuria (ED)
[2024-02-21 16:10] LABS: Glucose, Whole Blood 139 mg/dL (60-115)
--- NOTE | 2024-02-21 16:13 | MHC.CM.PN ---
Patient will dc to [facility] today at 7PM (Midline being placed now)via [facility] approval # for transport is [id number]). CM met with Patient at bedside and spoke with Brother/HCP/Lio via speaker phone, with the assist of a [facility] Non Morse Intercept Technician and addressed IMM with Patient. CM assisted with the completion of a HCP, naming Lio as the Agent.
--- NOTE | 2024-02-21 18:48 | HO.MIDLINE_ITS ---
Midline Insertion MIDLINE INSERTION Diagnosis: UTI Indication: 10 Days ABT Pertinent Labs: Reviewed Technique: Using sterile technique including cap and mask, glove and drape, the left arm was prepped and draped in the usual sterile fashion of full barrier technique with CHG. Using ultrasound guidance, left brachial vein access was obtained . 4FR single lumen non PASV POWER MIDLINE catheter trimmed to 15cm was positioned. The procedure was performed in rm 272. Ultrasound was used to document vein patency and for needle entry. A formal ultrasound picture was recorded. [employer] Camper [employer]sembl[employer] has released the line for use and it is currently dressed with a StatLock, Tegaderm, and CHG disc. Verification has been performed for blood return and line patency. Arm Circumference: 32cm Equipment: [employer] POWERMIDLINE catheter Catheter Type: 4FR single lumen non PASV catheter Lot #: [id number]
== END 2024-02-21 19:40 | disposition skilled nursing facility (03) | DRG 690 ==
LOC: HO.ED 15:26 → HO.EDOVER 16:34 → HO.IMC 16:55
PROVIDERS: Nurse Practitioner Family; Admitting Provider Internal Medicine; Emergency Provider Student in an Organized Health Care Education/Training Program; PCP Family Medicine; Visit Provider Internal Medicine
DX: N39.0 Urinary tract infection, site not specified (principal); N17.9 Acute kidney failure, unspecified; Z16.12 Extended spectrum beta lactamase (ESBL) resistance; E83.42 Hypomagnesemia; R19.5 Other fecal abnormalities; B96.20 Unspecified Escherichia coli [E. coli] as the cause of diseases classified elsewhere; N31.9 Neuromuscular dysfunction of bladder, unspecified; I10 Essential (primary) hypertension; E11.9 Type 2 diabetes mellitus without complications; Z79.82 Long term (current) use of aspirin; Z79.84 Long term (current) use of oral hypoglycemic drugs; Z79.899 Other long term (current) drug therapy
CPT/HCPCS: 36410; 36415; 74176; 80048; 80053; 81001; 82272; 82947; 83735; 84484; 85025; 85027; 87086; 87088; 87186; 93005; 99285; C1751; C1894; J0696; J1644; J2185; J3475

== ENCOUNTER → 2024-02-17 13:17 | Outpatient (BNV) | payer MEDICARE, SELFPAY | PROVIDERS: Admitting Provider Internal Medicine; Emergency Provider Student in an Organized Health Care Education/Training Program; PCP Family Medicine; Visit Provider Internal Medicine Cardiovascular Disease | DX: R42 Dizziness and giddiness (principal); R00.0 Tachycardia, unspecified; R94.31 Abnormal electrocardiogram [ECG] [EKG] | CPT/HCPCS: 93010 ==

== ENCOUNTER → 2024-02-17 14:29 | Outpatient (BNV) | payer MEDICARE, SELFPAY | PROVIDERS: Emergency Provider Student in an Organized Health Care Education/Training Program; PCP Family Medicine; Visit Provider Internal Medicine | DX: E83.42 Hypomagnesemia (principal) | CPT/HCPCS: 99223; 99232; 99239; 99499 ==

== ENCOUNTER → 2024-02-17 16:04 | Outpatient (BNV) | payer OTHER, SELFPAY | PROVIDERS: Admitting Provider Internal Medicine; Emergency Provider Student in an Organized Health Care Education/Training Program; PCP Family Medicine; Visit Provider Internal Medicine | DX: N39.0 Urinary tract infection, site not specified (principal); R30.0 Dysuria | CPT/HCPCS: 99222 ==

== ENCOUNTER 2024-03-07 14:36 | Outpatient (REF) | payer OTHER, SELFPAY ==
[2024-03-07 16:48] LABS: MANUAL DIFF FLAG NO
[2024-03-07 16:59] LABS: Basophils Percent Auto 0.1 % (0-2); Eosinophils Absolute Auto 0.1 X10*3/uL (0.0-0.4); Hematocrit 25.8 % (42.0-52.0); Hemoglobin 8.1 g/dl (14.0-18.0); Imm Gran Abs Auto 0.03 X10*3/uL (0.00-0.03); Imm Gran Pct Auto 0.4 % (0.0-0.4); Immature Retic Fraction 28.1 % (2.3-13.4); Lymphocytes Absolute Auto 0.4 X10*3/uL (1.2-4.9); Lymphocytes Percent Auto 5.5 % (20-40); Mean Corpuscular HGB Conc 31.4 g/dl (31.0-36.0); Mean Corpuscular Hemoglobin 26.6 pg (27.0-33.0); Mean Corpuscular Volume 84.9 fL (80.0-98.0); Mean Platelet Volume 10.5 fL (9.4-12.4); Monocytes Absolute Auto 0.7 X10*3/uL (0.1-1.2); Neutrophils Absolute Auto 5.6 x10*3/uL (2.0-8.3); Platelet Count 367 X10*3/uL (160-400); Red Blood Count 3.04 X10*6/uL (4.60-5.80); Red Cell Distribution Width 15.8 % (11.0-16.0); Retic HGB Equivalent 28.9 pg (30.0-35.0); Reticulocyte Percent 1.7 % (0.5-1.8); Reticulocytes Absolute 0.052 X10*6/uL (0.026-0.095); White Blood Count 6.8 X10*3/uL (4.8-10.8)
[2024-03-07 17:27] LABS: Alanine Aminotransferase 12 U/L (0-40); Albumin Level 3.3 g/dL (3.5-5.0); Alkaline Phosphatase 79 U/L (39-117); Anion Gap 12 (12-20); Aspartate Amino Transferase 12 U/L (5-37); Bilirubin Total 0.5 mg/dL (0.0-1.0); Blood Urea Nitrogen 25 mg/dL (9-16); Calcium 9.2 mg/dL (8.4-10.2); Carbon Dioxide 24 mmol/L (22-29); Chloride 110 mmol/L (96-108); Estimated Glomerular Filt Rate 52; Glucose Random 196 mg/dL (60-115); Iron 21 mcg/dL (45-160); Magnesium 1.6 mg/dL (1.6-2.6); Percent Iron Saturation 11 % (15-50); Potassium 4.7 mmol/L (3.3-5.1); Sodium 141 mmol/L (135-145); Total Iron Binding Capacity 187 mcg/dL (228-428); Total Protein 6.2 g/dL (6.5-8.0); Unsaturated Iron Binding 166 ug/dL
[2024-03-07 17:44] LABS: Ferritin 1103 ng/mL (20-250)
[2024-03-07 17:51] LABS: Folate 7.3 ng/mL (> or = 4.0); Vitamin B12 611 pg/mL (200-900)
== END 2024-03-07 14:37 | disposition home or self-care (01) ==
LOC: HO.HHCL 14:36
PROVIDERS: Visit Provider Family Medicine
DX: N17.9 Acute kidney failure, unspecified (principal); K92.1 Melena; E83.42 Hypomagnesemia; D64.9 Anemia, unspecified
CPT/HCPCS: 36415; 80053; 82607; 82728; 82746; 83540; 83735; 85025; 85045

== ENCOUNTER 2024-03-08 09:00 | Outpatient (REF) | payer OTHER, SELFPAY | END 2024-03-08 09:01 | disposition home or self-care (01) | LOC: HO.HHCL 09:00 | PROVIDERS: Visit Provider Family Medicine | DX: K92.1 Melena (principal); D63.8 Anemia in other chronic diseases classified elsewhere | CPT/HCPCS: 87338 ==

== ENCOUNTER 2024-04-26 10:39 | Outpatient (REF) | payer OTHER, SELFPAY ==
[2024-04-26 11:29] LABS: MANUAL DIFF FLAG NO
[2024-04-26 11:43] LABS: Basophils Percent Auto 0.4 % (0-2); Eosinophils Absolute Auto 0.1 X10*3/uL (0.0-0.4); Eosinophils Percent Auto 0.9 % (0-4); Hemoglobin 10.1 g/dl (14.0-18.0); Imm Gran Abs Auto 0.02 X10*3/uL (0.00-0.03); Imm Gran Pct Auto 0.4 % (0.0-0.4); Lymphocytes Absolute Auto 0.4 X10*3/uL (1.2-4.9); Lymphocytes Percent Auto 7.8 % (20-40); Mean Corpuscular HGB Conc 31.6 g/dl (31.0-36.0); Mean Corpuscular Hemoglobin 27.3 pg (27.0-33.0); Mean Corpuscular Volume 86.5 fL (80.0-98.0); Mean Platelet Volume 10.9 fL (9.4-12.4); Monocytes Absolute Auto 0.7 X10*3/uL (0.1-1.2); Monocytes Percent Auto 12.2 % (2-11); Neutrophils Absolute Auto 4.2 x10*3/uL (2.0-8.3); Neutrophils Percent Auto 78.3 % (45-73); Platelet Count 228 X10*3/uL (160-400); Red Cell Distribution Width 17.4 % (11.0-16.0); White Blood Count 5.4 X10*3/uL (4.8-10.8)
[2024-04-26 12:10] LABS: Alanine Aminotransferase 12 U/L (0-40); Albumin Level 3.7 g/dL (3.5-5.0); Alkaline Phosphatase 87 U/L (39-117); Anion Gap 10 (12-20); Aspartate Amino Transferase 13 U/L (5-37); Bilirubin Total 0.6 mg/dL (0.0-1.0); Blood Urea Nitrogen 22 mg/dL (9-16); Calcium 9.3 mg/dL (8.4-10.2); Carbon Dioxide 25 mmol/L (22-29); Chloride 107 mmol/L (96-108); Estimated Glomerular Filt Rate 56; Glucose Random 225 mg/dL (60-115); Potassium 4.3 mmol/L (3.3-5.1); Sodium 138 mmol/L (135-145); Total Protein 6.3 g/dL (6.5-8.0)
== END 2024-04-26 10:40 | disposition home or self-care (01) ==
LOC: HO.HHCL 10:39
PROVIDERS: Visit Provider Family Medicine
DX: I10 Essential (primary) hypertension (principal); D63.8 Anemia in other chronic diseases classified elsewhere; R77.0 Abnormality of albumin
CPT/HCPCS: 36415; 80053; 85025

== ENCOUNTER 2024-09-17 12:27 | Observation (INO) | payer OTHER, SELFPAY ==
--- NOTE | ~2024-09-17 | XR_ITS ---
EXAMINATION: XR CHEST CLINICAL INFORMATION: Stroke Protocol COMPARISON: Chest x-ray 01/25/2024 TECHNIQUE: Frontal view of the chest was obtained. FINDINGS: No significant abnormality is noted involving the heart, lungs, mediastinum, bony thorax or soft tissues. XR/XR chest 1V IMPRESSION: Unremarkable chest examination. Electronically signed by: Kunal Gatica MD 09/17/2024 01:26 PM [facility]
--- NOTE | ~2024-09-17 | CT_ITS ---
EXAMINATION: CT HEAD NECK ANGIOGRAPHY WITH IV CONTRAST STROKE HISTORY: Stroke Protocol COMPARISON: Correlation is made with the unenhanced head CT performed immediately prior. TECHNIQUE: Helical axial images were obtained from the aortic arch to the vertex after intravenous injection of contrast per standard departmental protocol. MIP/3D reconstructions were obtained and reviewed. One or more of the following techniques was used for dose reduction: Automated exposure control, adjustment of the mA and/or kV according to patient size, use of iterative reconstruction technique. DLP: 641 mGy-cm FINDINGS: CTA NECK: AORTIC ARCH: The visualized portions of the arch as well as innominate, right subclavian, and left subclavian arteries show no hemodynamically significant stenosis. Right common carotid artery: There is no large vessel occlusion or hemodynamically significant stenosis. Right internal carotid artery: There is no large vessel occlusion or hemodynamically significant stenosis. Left common carotid artery: There is no large vessel occlusion or hemodynamically significant stenosis. Left internal carotid artery: There is no large vessel occlusion or hemodynamically significant stenosis. (Extracranial internal carotid artery stenosis estimates are based on use of distal ICA as the denominator.) Right vertebral artery: There is no large vessel occlusion or hemodynamically significant stenosis. Left vertebral artery: There is no large vessel occlusion or hemodynamically significant stenosis. CTA HEAD: Right intracranial ICA: There is atherosclerotic calcification of the cavernous and supraclinoid right ICA. There is no large vessel occlusion, hemodynamically significant stenosis, or aneurysm. Right RAFAELA: There is no large vessel occlusion, hemodynamically significant stenosis, or aneurysm. Right MCA: There is no large vessel occlusion, hemodynamically significant stenosis, or aneurysm. Left intracranial ICA: There is atherosclerotic calcification of the cavernous and supraclinoid left ICA. There is no large vessel occlusion, hemodynamically significant stenosis, or aneurysm. Left RAFAELA: There is no large vessel occlusion, hemodynamically significant stenosis, or aneurysm. Left MCA: There is no large vessel occlusion, hemodynamically significant stenosis, or aneurysm. Basilar artery: There is no large vessel occlusion, hemodynamically significant stenosis, or aneurysm. Superior cerebellar arteries: There is no large vessel occlusion, hemodynamically significant stenosis, or aneurysm. Right FINE ARTIST: There is no large vessel occlusion, hemodynamically significant stenosis, or aneurysm. Left FINE ARTIST: There is no large vessel occlusion, hemodynamically significant stenosis, or aneurysm. VEINS: Venous enhancement is within normal limits for this technique. SOFT TISSUES: The bilateral parotid, submandibular, and thyroid glands are unremarkable. No laryngeal abnormality is identified. There is no cervical lymphadenopathy. CT/CT angio head neck STROKE IMPRESSION: No large vessel occlusion, hemodynamically significant stenosis, or aneurysm in the head and neck. Electronically signed by: Jossue Phan MD 09/17/2024 01:26 PM [facility]
--- NOTE | ~2024-09-17 | CT_ITS ---
EXAMINATION: CT HEAD WITHOUT IV CONTRAST STROKE HISTORY: Stroke Protocol. TECHNIQUE: Unenhanced helical CT of the head was performed per standard departmental protocol. Coronal and sagittal reformats of the head were also evaluated. One or more of the following techniques was used for dose reduction: Automated exposure control, adjustment of the mA and/or kV according to patient size, use of iterative reconstruction technique. DLP: 629 mGy-cm COMPARISON: There are no prior studies for comparison. FINDINGS: BRAIN: There is mild prominence of the ventricular system and cortical sulci, consistent with atrophy. Scattered periventricular and subcortical white matter hypodensities are noted which are nonspecific, but often seen in the setting of small vessel ischemic disease. There is no mass effect or midline shift. No intra- or extra-axial fluid collections are identified. SINUSES: The visualized paranasal sinuses are clear. The mastoid air cells and middle ear cavities are well pneumatized. ORBITS: The visualized orbits are unremarkable. BONES/SOFT TISSUES: The extracranial soft tissues are unremarkable. The calvarium is intact. No suspicious lytic or sclerotic lesions. CT/CT head for STROKE IMPRESSION: No acute intracranial abnormality. Electronically signed by: Jossue Phan MD 09/17/2024 01:12 PM [facility]
--- NOTE | 2024-09-17 12:32 | ED.GENADULT ---
HPI - General Adult General Chief complaint: Neuro Symptoms/Deficit Stated complaint: Mini Stroke 09/16/24 8 AM Time Seen by Provider: 09/17/24 12:49 Source: patient Mode of arrival: ambulatory Limitations: no limitations History of Present Illness ED Provider: Dr. Santiago HPI narrative: 88-year-old man presents emergency department stating that he woke up this morning he had nausea. This was at 08:00 he states he was unable to vomit though he felt like he needed to he did retch a few times but was unable to get anything up. He states that he has some blurriness to his left eye. He denies any other symptoms he denies any weakness cough or fevers state he has nausea since resolved he denies chest cough shortness of breath and states he has never had this issue with his eye in the past. Related Data Home Medications ?Medication ?Instructions ?Recorded ?Confirmed amlodipine 5 mg tablet 5 mg PO DAILY 04/12/22 02/17/24 aspirin 81 mg tablet,delayed 81 mg PO DAILY 04/12/22 02/17/24 release atorvastatin 20 mg tablet 20 mg PO DAILY 04/12/22 02/17/24 blood sugar diagnostic (FreeStyle #10 ea 04/12/22 08/03/23 Lite Strips) ferrous sulfate 325 mg (65 mg 325 mg PO DAILY 04/12/22 02/17/24 iron) tablet (FeroSul) lancets 33 gauge (TRUEplus Lancets) #100 ea 04/12/22 08/03/23 mirabegron 50 mg tablet,extended 50 mg PO DAILY 04/12/22 02/17/24 release 24 hr (Myrbetriq) pioglitazone 45 mg tablet 45 mg PO DAILY 04/12/22 02/17/24 ascorbic acid (vitamin C) 500 mg 500 mg PO DAILY 02/17/24 02/17/24 tablet (Vitamin C) cyanocobalamin (vitamin B-12) 1,000 mcg PO DAILY 02/17/24 02/17/24 1,000 mcg tablet metformin 750 mg tablet,extended 750 mg PO BIDWM 02/17/24 02/17/24 release 24 hr Previous Rx's ?Medication ?Instructions ?Recorded ertapenem 1 gram solution for 1 g IV DAILY #10 ea 02/21/24 injection magnesium oxide 400 mg (241.3 mg 800 mg (2 x 400 mg (241.3 mg 02/21/24 magnesium) tablet magnesium)) PO TID #0 tabs phenazopyridine 100 mg tablet 100 mg PO TIDWM PRN burning #0 tabs 02/21/24 Allergies Allergy/AdvReac Type Severity Reaction Status Date / Time cephalexin Allergy Intermediate Constipatio Verified 09/17/24 12:37 n oxycodone [From Percocet] AdvReac Mild VOMITING/DI Verified 09/17/24 12:37 ZZINES percocet Allergy Unknown nausea/dizz Uncoded 09/17/24 12:37 iness Review of Systems Review of Systems: Review of systems: Left eye blurry vision General: Patient denies any fever chills recent illness or falls Musculoskeletal: Denies back pain or body aches or other injuries HEENT: denies headache, runny nose, ear pain Respiratory: denies shortness of breath, cough Cardiovascular: no chest pain or palpitations : denies dysuria, frequency Abdomen: no nausea vomiting denies abdominal pain Extremities: no swelling, no pain Skin: no diaphoresis Yes all other systems are reviewed and are negative PMFSH Past Medical History Medical History Tubular adenoma of colon Neurogenic bladder Chronic anemia HTN (hypertension) Prostate cancer Hypercholesterolemia Diabetes mellitus Renal cyst Choledocholithiasis Diverticulosis Surgical History History of colonoscopy History of hernia surgery H/O prostatectomy Family History Family History Unknown Cancer Social History Social History Household Members: None Housing: Apartment Alcohol intake: never Patient Tobacco Use Status: Never used Tobacco Smoked in Last 30 Days: No Use of substances other than those prescribed or required for medical reasons: No Advance Directives: Yes Advance Directives on File: Yes Advance Directives Date on File: 02/22/24 service: No Current occupational status: retired Current occupation: right handed Physical Exam ED Vital Signs: Vital Signs - 24 hr 09/17/24 12:34 09/17/24 13:17 09/17/24 14:20 Temperature 97.1 F Pulse Rate 114 H 96 87 Respiratory Rate 20 18 16 Blood Pressure 126/75 138/67 130/66 Pulse Oximetry 99 96 98 Oxygen Delivery Method Room Air Room Air Room Air BMI result Body Mass Index 29.4 Neurological exam: CN II- XII tested. Patient is alert and oriented to person place and time. Patient has no dysphagia or dysarthia, denies good vision in all four vision patel no nystagmus on exam, good strength to upper and lower extremities with normal reflexes to brachioradialis, wrist, patella and achilles. Negative romberg, good finger to nose and heel to engel. General: Well-appearing well-nourished in no signs of distress HEENT: Normocephalic atraumatic Neck: No signs of JVD, no masses no tenderness or lymphadenopathy Cardiovascular: Regular rate and rhythm Respiratory: Clear to auscultation bilaterally Abdomen: Soft nontender no masses Extremities: Normal pedal pulses no signs of edema Skin: Dry warm no rashes Back: No tenderness full ROM NIH Stroke Scale Internal: Initial- Upon Arrival Time: 12:50 Level of Consciousness: Alert Level of Consciousness Questions: Answers both questions correctly Level of Consciousness Commands: Performs both tasks correctly Best Gaze: Normal Visual: No visual loss Facial Palsy: Normal Motor Arm (Right): No drift Motor Arm (Left): No drift Motor Leg (Right): No drift Motor Leg (Left): No drift Limb Ataxia: Absent Sensory: Normal Best Language: No aphasia Dysarthia: Normal Extinction and Inattention: No abnormality Score: 0 Course Course Course Narrative: RME performed by Jesusita Szymanski PA-C. Patient is an 88 year old assigned male at presenting to the emergency department with left sided blurry vision after difficult swallowing. Detailed physical exam and review of systems are deferred to the physician primary care sports medicine. Stroke protocol activated. Reevaluation(s) Reevaluation #1: CT and labs are all unremarkable we are still waiting for Neurology input I did speak to the brand marketing coordinator who states that we call the neurologist directly both agree symptoms are isolated to one eye Reevaluation #2: Labs and Ct's are normal and finally all have resulted I will discuss the case with Neurology Dr. Arevalo. Of note symptoms have completely resolved Time: 13:56 Reevaluation #3: [id number] Arevalo about admission vs MRI and sending home. He felt the patient had an opthalmology problem he felt the patient had no issues and felt there is no emergency. while he states that he is not concerned about this patient he has not seen the patient in person I did speak with just who was her brand marketing coordinator who did not have a strong feeling either way I think this could be a TIA I do recommend admission for complete stroke workup as this could be a precursor fortunately the symptoms have resolved I discussed the case with hospitalist about admission. Medications Administered Discontinued Medications Generic Name Dose Route Start Last Admin Trade Name Freselene PRN Reason Stop Dose Admin Iohexol 100 ml 09/17/24 13:14 09/17/24 13:14 Iohexol 350 Mg/Ml 100 Ml Infus..Btl IV 09/17/24 13:15 70 ml ONCE ONE Administration Medical Decision Making Medical Decision Making [facility] Narrative: patient has isolated left eye blurriness but nothing else on exam I am unable to appreciate any the left eye blurriness he did complain of some drooping left eyelid for the triage provider but does not complain of that to me he denies chest pain cough fever falls or injuries patient was seen immediately sent for CT labs and likely consult with Neurology of note patient is not a TNK candidate he has no symptoms currently isn't on a stroke scale of 0 and just his complain of left eye blurriness which I am unable to reproduce he is also outside the window as his symptoms started almost 5 hours ago. Differential Diagnosis Differential Diagnoses: The differential diagnosis associated with the presentation includes TI left eye blurriness electrolyte abnormality nausea hypoglycemia hyperglycemia electrolyte abnormality Admission/Observation Consideration of admission/observation: Escalation of care including admission/observation considered Consult Healthcare Provider Management of the patient was discussed with: Finish Painter Lab Data [facility] Lab Attestation statement: I reviewed the patient's lab results. 09/17/24 13:26 09/17/24 13:26 Labs: Lab Results 09/17/24 09/17/24 Range/Units 13:24 13:26 WBC 5.9 (4.8-10.8) X10*3/uL RBC 3.97 L (4.60-5.80) X10*6/uL Hgb 10.8 L (14.0-18.0) g/dl Hct 33.4 L (42.0-52.0) % MCV 84.1 (80.0-98.0) fL MCH 27.2 (27.0-33.0) pg MCHC 32.3 (31.0-36.0) g/dl RDW 17.6 H (11.0-16.0) % Plt Count 223 (160-400) X10*3/uL MPV 10.4 (9.4-12.4) fL Immature Gran % (Auto) 0.5 H (0.0-0.4) % Neut % (Auto) 86.1 H (45-73) % Lymph % (Auto) 5.7 L (20-40) % [place] % (Auto) 7.3 (2-11) % Eos % (Auto) 0.2 (0-4) % Baso % (Auto) 0.2 (0-2) % Lymph # (Auto) 0.3 L (1.2-4.9) X10*3/uL [place] # (Auto) 0.4 (0.1-1.2) X10*3/uL Eos # (Auto) 0.0 (0.0-0.4) X10*3/uL Baso # (Auto) 0.0 (0.0-0.2) X10*3/uL Abs Immat Gran (auto) 0.03 (0.00-0.03) X10*3/uL Absolute Neuts (auto) 5.1 (2.0-8.3) x10*3/uL Absolute Nucleated RBC 0.000 (0.0-0.012) X10*3/uL Nucleated RBC % (auto) 0.0 (0.0-0.2) /100WBC PT 10.5 L (10.9-12.4) SEC Whole Blood PT 11.3 (11.1-13.5) sec INR 0.9 (0.9-1.1) Whole Blood INR 0.9 (0.9-1.1) APTT 33.9 (26.0-36.8) SEC Sodium 139 (135-145) mmol/L Potassium 4.1 (3.3-5.1) mmol/L Chloride 108 (96-108) mmol/L Carbon Dioxide 22 (22-29) mmol/L Anion Gap 13 (12-20) BUN 21 H (9-16) mg/dL Creatinine 1.18 (0.5-1.4) mg/dL Estim Creat Clear Calc 42.3 Estimated GFR 59 POC Glucose 233 H (60-115) mg/dL Random Glucose 249 H (60-115) mg/dL Calcium 9.2 (8.4-10.2) mg/dL Troponin I High Sens < 2.7 (<3.5-35.0) ng/L Triglycerides 120 (<150) mg/dL Cholesterol 113 (<200) mg/dL LDL Cholesterol, Calc 47 (<100) mg/dL HDL Cholesterol 42 (>40) mg/dL Independent Interpretation I performed an independent interpretation of an: EKG, Plain X-Ray and CT Scan Radiology Impression Discussion of test interpretation with radiology: I have reviewed the radiologist's reading. External Record Review External record reviewed: Inpatient record and Office record Chronic Conditions Patient?s care impacted by: Hypertension Core Measures AMI core measures followed: Yes Critical Care Time Critical Care Time Critical Care Time: Yes Total Critical Care Time: 50 Attestation: patient seen immediately re-evaluated multiple times symptoms did resolve with the patient was here was seen by the brand marketing coordinator I did discuss the case with Neurology as well as the hospitalist and the decision was made the patient is not TNK candidate Discharge Plan Discharge Clinical Impression: Vision changes Clinical Impression: (Ruled Out): Cerebrovascular accident Patient Disposition: Admitted As Inpatient Print Language: Uzbek
[2024-09-17 12:34] VITALS: BP 126/75; PULSE 114; RESP 20; TEMP 36.2; O2SAT 99; BMI 29.4
--- NOTE | 2024-09-17 12:36 | ECG_ITS ---
Test Reason : STROKE PROTOCOL Blood Pressure : */* mmHG Vent. Rate : 89 BPM Atrial Rate : 89 BPM P-R Int : 186 ms QRS Dur : 68 ms QT Int : 360 ms P-R-T Axes : 46 -9 34 degrees QTcB Int : 438 ms Normal sinus rhythm Normal ECG When compared with ECG of 17-Feb-2024 13:24, No significant change was found Referred By: Jesusita Szymanski Electronically Signed By: PETER LOPEZ MD
[2024-09-17] MEDS: iohexoL 350 MG/ML 100 ML INFUS..BTL IV (13:14)
[2024-09-17 13:17] VITALS: BP 138/67; PULSE 96; RESP 18; O2SAT 96
[2024-09-17 13:29] LABS: Prothrombin Time Whole Bld POC 11.3 sec (11.1-13.5); ~PT, ~INR - Anti Coag Clinic 0.9 (0.9-1.1)
[2024-09-17 13:31] LABS: Glucose, Whole Blood 233 mg/dL (60-115)
--- NOTE | 2024-09-17 13:33 | MHC.STROKE ---
Notified of stroke alert in the ED Upon arrival, patient finishing scans Pt moved to bed 10 Information Technology Data Analyst utilized during assessment. Pt awake, alert and oriented x 4. Speaking in full clear sentences. moving all extremities, following all commands. Pt reports that his vision in his left eye is blurred compared to his right. It's not 100% . Pt states that he went to bed last at approximately 2330. Reports feeling well at that time. Woke this am and c/o coughing and change in his vision. reports that the vision in his left eye was blurry and that was new. Stroke Education reviewed, pamphlet provided in Cuban. Risk factors reviewed including medical history, medications, diet, activity, and social hx. Swallow screen completed, pt passed without difficulty. Will continue to assist as needed.
[2024-09-17 13:35] LABS: MANUAL DIFF FLAG NO
[2024-09-17 13:36] LABS: Basophils Percent Auto 0.2 % (0-2); Eosinophils Percent Auto 0.2 % (0-4); Hematocrit 33.4 % (42.0-52.0); Hemoglobin 10.8 g/dl (14.0-18.0); Imm Gran Abs Auto 0.03 X10*3/uL (0.00-0.03); Imm Gran Pct Auto 0.5 % (0.0-0.4); Lymphocytes Absolute Auto 0.3 X10*3/uL (1.2-4.9); Lymphocytes Percent Auto 5.7 % (20-40); Mean Corpuscular HGB Conc 32.3 g/dl (31.0-36.0); Mean Corpuscular Hemoglobin 27.2 pg (27.0-33.0); Mean Corpuscular Volume 84.1 fL (80.0-98.0); Mean Platelet Volume 10.4 fL (9.4-12.4); Monocytes Absolute Auto 0.4 X10*3/uL (0.1-1.2); Monocytes Percent Auto 7.3 % (2-11); Neutrophils Absolute Auto 5.1 x10*3/uL (2.0-8.3); Neutrophils Percent Auto 86.1 % (45-73); Platelet Count 223 X10*3/uL (160-400); Red Blood Count 3.97 X10*6/uL (4.60-5.80); Red Cell Distribution Width 17.6 % (11.0-16.0); White Blood Count 5.9 X10*3/uL (4.8-10.8)
[2024-09-17 13:46] LABS: INTERNATIONAL NORM RATIO 0.9 (0.9-1.1); Prothrombin Time 10.5 SEC (10.9-12.4)
[2024-09-17 13:48] LABS: Partial Thromboplastin Time 33.9 SEC (26.0-36.8)
[2024-09-17 13:50] LABS: Anion Gap 13 (12-20); Blood Urea Nitrogen 21 mg/dL (9-16); Calcium 9.2 mg/dL (8.4-10.2); Carbon Dioxide 22 mmol/L (22-29); Chloride 108 mmol/L (96-108); Cholesterol 113 mg/dL (<200); Creatinine Clr Calc Pharmacy 42.3; Estimated Glomerular Filt Rate 59; Glucose Random 249 mg/dL (60-115); HDL Cholesterol 42 mg/dL (>40); LDL Cholesterol Calculated 47 mg/dL (<100); Potassium 4.1 mmol/L (3.3-5.1); Sodium 139 mmol/L (135-145); Triglycerides 120 mg/dL (<150)
[2024-09-17 13:53] LABS: Stroke Lab Use COMPLETE
[2024-09-17 14:01] LABS: Troponin-I High Sensitivity < 2.7 ng/L (<3.5-35.0)
[2024-09-17 14:20] VITALS: BP 130/66; PULSE 87; RESP 16; O2SAT 98
--- NOTE | 2024-09-17 14:22 | PC.NURSE ---
pt sitting in bed watching TV offers no complaints no OLMEDO no focal weakness
--- NOTE | 2024-09-17 14:45 | PM.IMHP ---
History of Present Illness Date of Service: 09/17/24 Chief Complaint: left eye visual changes The patient is a 88-year-old male with a past medical history of prostate cancer, diabetes, hypertension, hyperlipidemia who presents to the emergency room with complaints of left eye visual changes which began the morning of arrival. The patient is Kazakh-speaking and hence the history is obtained with the help of a Kazakh-speaking language interpreter. Despite this, the patient remains a vague historian. He states that this morning woke up feeling nauseous. He states that he retched several times but was unable to vomit. He says subsequently he noticed that his left eye felt different than his right eye. After probing multiple ways, the patient finally states that the left eye was blurry. He states that he has never had this type of syndrome. He denies any associated focal weakness. Denies any changes to his speech. He reports that due to the left eye blurriness he presented to the emergency room. In the ED, the patient underwent a CT head and CTA head and neck which were both negative for acute findings. His case was discussed with the neurologist. The ED provider felt presentation was possibly a TIA and hence the patient will now be placed under observation. The patient reports resolution of his symptoms. Review of Systems Review of Systems: Negative except HPI/interval history. [facility], [facility] Medical History Tubular adenoma of colon Neurogenic bladder Chronic anemia HTN (hypertension) Prostate cancer Hypercholesterolemia Diabetes mellitus Renal cyst Choledocholithiasis Diverticulosis Family History Unknown Cancer Surgical History History of colonoscopy History of hernia surgery H/O prostatectomy Social History Household Members: None Housing: Apartment Do you presently have visiting nurse or other home services: Yes (Meals on wheels) Alcohol intake: never Patient Tobacco Use Status: Never used Tobacco Advance Directives Date on File: 02/22/24 service: No Current occupational status: retired Current occupation: right handed Meds Allergies Allergy/AdvReac Type Severity Reaction Status Date / Time cephalexin Allergy Intermediate Constipatio Verified 09/17/24 12:37 n oxycodone [From Percocet] AdvReac Mild VOMITING/DI Verified 09/17/24 12:37 ZZINES percocet Allergy Unknown nausea/dizz Uncoded 09/17/24 12:37 iness Home Medications ?Medication ?Instructions ?Recorded ?Confirmed ?Last Taken ?Type amlodipine 5 mg tablet 5 mg PO DAILY 04/12/22 09/17/24 09/04/24 History aspirin 81 mg tablet,delayed 81 mg PO DAILY 04/12/22 09/17/24 09/04/24 History release atorvastatin 20 mg tablet 20 mg PO BEDTIME 04/12/22 09/17/24 09/03/24 History blood sugar diagnostic (FreeStyle #10 ea 04/12/22 08/03/23 Unknown History Lite Strips) ferrous sulfate 325 mg (65 mg 325 mg PO BID 04/12/22 09/17/24 09/04/24 History iron) tablet (FeroSul) lancets 33 gauge (TRUEplus Lancets) #100 ea 04/12/22 08/03/23 Unknown History mirabegron 50 mg tablet,extended 50 mg PO BEDTIME 04/12/22 09/17/24 09/03/24 History release 24 hr (Myrbetriq) pioglitazone 45 mg tablet 45 mg PO DAILY@1900 04/12/22 09/17/24 09/03/24 History ascorbic acid (vitamin C) 500 mg 500 mg PO BEDTIME 02/17/24 09/17/24 09/03/24 History tablet (Vitamin C) cyanocobalamin (vitamin B-12) 1,000 mcg PO BEDTIME 02/17/24 09/17/24 09/03/24 History 1,000 mcg tablet metformin 750 mg tablet,extended 750 mg PO BIDWM@1200,1700 02/17/24 09/17/24 09/03/24 History release 24 hr magnesium oxide 400 mg (241.3 mg 400 mg PO DAILY@1200 09/17/24 09/17/24 09/03/24 History magnesium) tablet Physical Exam Vital Signs and Narrative: Vital Signs: Last Vital Signs Temp 97.1 F 09/17/24 12:34 Pulse 87 09/17/24 14:20 Resp 16 09/17/24 14:20 BP 130/66 09/17/24 14:20 Pulse Ox 98 09/17/24 14:20 O2 Del Method Room Air 09/17/24 14:20 BMI result Body Mass Index 29.4 Const: Other: Constitutional - Awake and Alert, No apparent distress HEENT - PERRLA, EOMI Cardiovascular - S1S2, RRR, No edema Respiratory - Normal lung expansion, Normal respiratory effort, No respiratory distress, CTA bilaterally Gastrointestinal - NT / ND; +BS; No rebound or guarding - No CVA tenderness Extremities - no calf tenderness bilaterally, no swelling Musculoskeletal - Normal inspection, normal ROM Skin - Warm/Dry Neurological - Alert & oriented x3, No focal deficit; no visual field deficits appreciated; vision grossly euqal in both eyes Psychological - Appropriate affect Results Labs 09/17/24 13:26 09/17/24 13:26 Labs: Laboratory Results - last 24 hr 09/17/24 09/17/24 13:24 13:26 MCV 84.1 MCH 27.2 MCHC 32.3 RDW 17.6 H Plt Count 223 MPV 10.4 Immature Gran % (Auto) 0.5 H Neut % (Auto) 86.1 H Lymph % (Auto) 5.7 L [place] % (Auto) 7.3 Eos % (Auto) 0.2 Baso % (Auto) 0.2 Lymph # (Auto) 0.3 L [place] # (Auto) 0.4 Eos # (Auto) 0.0 Baso # (Auto) 0.0 Abs Immat Gran (auto) 0.03 Absolute Neuts (auto) 5.1 Absolute Nucleated RBC 0.000 Nucleated RBC % (auto) 0.0 PT 10.5 L Whole Blood PT 11.3 INR 0.9 Whole Blood INR 0.9 APTT 33.9 Anion Gap 13 Estim Creat Clear Calc 42.3 Estimated GFR 59 POC Glucose 233 H Random Glucose 249 H Calcium 9.2 Triglycerides 120 Cholesterol 113 LDL Cholesterol, Calc 47 HDL Cholesterol 42 Imaging Radiologist's Impressions: Impressions Head CT 09/17/24 12:56 IMPRESSION: No acute intracranial abnormality. Electronically signed by: Jossue Phan MD 09/17/2024 01:12 PM [facility] Head/Neck CTA 09/17/24 12:58 IMPRESSION: No large vessel occlusion, hemodynamically significant stenosis, or aneurysm in the head and neck. Electronically signed by: Jossue Phan MD 09/17/2024 01:26 PM EST RP Chest X-Ray 09/17/24 13:00 IMPRESSION: Unremarkable chest examination. Electronically signed by: Kunal Gatica MD 09/17/2024 01:26 PM EST RP Assessment and Plan (1) Vision changes: Status: Acute Plan 88-year-old male with multiple risk factors for cerebrovascular disease including diabetes, hypertension, hyperlipidemia who presents with left eye visual changes which began the morning of admission. These have now resolved. He will be admitted for evaluation of TIA. 1. L eye visual changes / blurriness Rule out TIA symptoms seem more consistent with primary eye issue will have neurology give in put monitor on tele further work up pending neuro eval 2. DM hold orals use sliding scale 3. HTN continue baseline meds 4. HLD statin Quality Stroke Does the patient have a stroke diagnosis?: No VTE Prior VTE?: No VTE Risk Level:: Medical - moderate - high VTE Device Contraindication: N/A - Device Ordered VTE Drug Contraindication: N/A - Med Ordered
[2024-09-17] MEDS: 0.9 % Sodium Chloride Flush 3 ML SYRINGE IVFLUSH (15:21)
[2024-09-17] MEDS: Enoxaparin Sodium 40 MG/0.4 ML SYRINGE SUBCUT (15:22)
--- OUTSIDE RECORDS SUMMARY | 2024-09-17 16:01 | XMS_ITS | Clinical Summary ---
Author Organization [id number] Address [address] [place] [address] Care Team Providers Care Programs Assistant Name Role Phone Jolly Constantino MD Primary Care Provider [phone] Javier Benton PharmD Unavailable Allergies Active Allergy Reactions Criticality Noted Date Comments Cephalexin Other Medium 11/19/2022 Abdominal pain and constipation. Seen in ED. He tolerated cefuroxime Oxycodone Dizziness Low 05/24/2013 Other reaction(s): VOMITING/DIZZINES Oxycodone-Acetaminophen Dizziness Low 04/12/2022 Pt reported vomiting and dizziness. Other reaction(s): nausea/dizziness Medications mirabegron ER (Myrbetriq) 50 MG 24 hr tablet Take 1 tablet by mouth 1 (one) time each day. 03/09/20 22 Active Blood Pressure kit Active COVID-19 At-Home Test kitIndications:A t increased risk of exposure to COVID-19 virus 1 each by In Vitro route 1 (one) time if needed (symptoms of COVID or exposure) for up to 1 dose. 2 kit 1 06/29/20 22 Active Blood Glucose Monitoring Suppl (FreeStyle glucose monitoring) kit TEST BLOOD SUGAR 3 TIMES EVERY DAY 1 each 11/23/19 23 Active ammonium lactate (Lac-Hydrin) 12 % cream Apply topically if needed for dry skin. 385 g 3 02/22/20 23 Active cyanocobalamin (Vitamin B-12) 1000 MCG tablet TAKE 1 TABLET BY MOUTH EVERY DAY 90 tablet 3 10/13/19 24 Active metFORMIN XR (Glucophage-XR) 750 MG 24 hr tablet Take 1 tablet (750 mg) by mouth with breakfast and with evening meal. Do not crush, chew, or split. 180 tablet 3 10/18/19 24 025 Active Ascorbic Acid (vitamin C) 500 MG tablet TAKE 1 TABLET BY MOUTH EVERY MORNING 90 tablet 3 11/08/19 24 Active Aspirin Adult Low Strength 81 MG EC tablet TAKE 1 TABLET BY MOUTH EVERY DAY 90 tablet 3 12/26/19 24 Active benzonatate (Tessalon) 200 MG capsule Take 1 capsule (200 mg) by mouth if needed in the morning, at noon, and at bedtime for cough. Do not crush or chew. 60 capsule 1 01/25/20 24 Active atorvastatin (Lipitor) 40 MG tabletIndication s:Dyslipidemia Take 1 tablet (40 mg) by mouth Once per day. 90 tablet 3 03/07/20 24 Active magnesium oxide (Mag-Ox) 400 MG tablet Take 1 tablet (400 mg) by mouth Once per day. 90 tablet 3 03/07/20 24 025 Active ferrous sulfate (FeroSul) 325 (65 Fe) MG tablet Take 1 tablet (325 mg) by mouth 2 times daily. 180 tablet 3 03/07/20 24 Active glucose blood (FREESTYLE LITE) test stripIndications :Type 2 diabetes mellitus with hyperglycemia, without long-term current use of insulin ([facility]) USE DIRECTED TO TEST BLOOD SUGAR THREE TIMES DAILY 100 strip 04/11/20 24 Active Alcohol Swabs (Alcohol Prep) 70 % padsIndications: Type 2 diabetes mellitus with hyperglycemia, without long-term current use of insulin ([facility]) USE TO CHECK BLOOD SUGAR DIRECTED 100 each 04/11/20 24 Active FreeStyle lancets 1 each by Other route before breakfast, before lunch, and before evening meal. TEST BLOOD SUGAR 3 TIMES A DAY 100 each 04/16/20 24 Active pioglitazone (Actos) 45 MG tablet TAKE 1 TABLET BY MOUTH EVERY EVENING 90 tablet 1 06/27/20 24 Active amLODIPine (Norvasc) 5 MG tabletIndication s:Primary hypertension TAKE 1 TABLET BY MOUTH EVERY MORNING 90 tablet 3 08/20/19 25 Active amLODIPine (Norvasc) 5 MG tabletIndication s:Primary hypertension TAKE 1 TABLET BY MOUTH ONCE DAILY 90 tablet 3 08/31/19 24 025 Discontinued Active Problems Problem Noted Date Diagnosed Date Excessive attrition of teeth, 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 09/05/2024 Partial edentulism 09/05/2024 Poor appetite 04/29/2024 Assessment & Plan (04/29/2024 7:01 AM EDT): - patient may benefit from more socialization - continue periodic assessment for depression / dementia Hypoalbuminemia 04/29/2024 Assessment & Plan (04/29/2024 7:01 AM EDT): - likely due to poor nutritional intake, it can worsen his edema - continue nutritional supplement: Boost Glucose Control or Glucerna - discussed about adult day program, which patient is not enthusiastic about - discussed about meal delivery service. Patient tried once, but preferred [place] foods to typical [place] foods. Patient is willing to try again. - currently going to [employer] for lunch as a part of service from [facility]. - discussed with patient's floor care specialist about getting a BUS MATRON who can cook for him and eat with him. Obesity 02/21/2023 Recurrent UTI 11/09/2022 Assessment & Plan (08/13/2024 3:52 PM EST): -Most recent in Feb 2024, E. Coli ESBL. Resistant to amp, cephalosporin, levofloxacin, and gentamicin, sensitive to ertapenem, nitrofurantoin, and TMP/SMX. Treated with Ertapenem IV for 10 days. -10/2022, E. Coli resistant to TMP/SMZ and fluoroquinolone. Initially Tx with Keflex but pt developed abd pain, switched to Cefuroxime -Follow up with urologist as scheduled -Recheck UA and urine culture as he is having mild symptoms Assessment & Plan (03/07/2024 3:06 PM EDT): -Most recent in Feb 2024, E. Coli ESBL. Resistant to amp, cephalosporin, levofloxacin, and gentamicin, sensitive to ertapenem, nitrofurantoin, and TMP/SMX. Treated with Ertapenem IV for 10 days. -10/2022, E. Coli resistant to TMP/SMZ and fluoroquinolone. Initially Tx with Keflex but pt developed abd pain, switched to Cefuroxime -Follow up with urologist as scheduled -Recheck UA and urine culture as he is having mild symptoms Assessment & Plan (02/21/2023 5:01 AM EDT): - Most recent in 10/2022, E. Coli resistant to TMP/SMZ and fluoroquinolone -Initially Tx with Keflex but pt developed abd pain, switched to Cefuroxime -Completed cefuroxime -Follow up with urologist as scheduled Assessment & Plan (11/19/2022 11:18 AM EDT): - Most recent in 10/2022 -Initially Tx with Keflex but pt developed abd pain, switched to Cefuroxime -Complete cefuroxime -Follow up with urologist Dental plaque 08/31/2022 Dental abscess 08/31/2022 Tobacco dependence in remission 07/16/2021 08/16/2023 At risk for falls 07/16/2021 08/16/2023 Memory impairment 04/13/2021 08/16/2023 Sensorineural hearing loss, bilateral 06/26/2015 History of hemorrhoids 06/26/2015 Anemia of chronic disease 11/13/2012 Assessment & Plan (08/13/2024 3:53 PM EST): - Normocytic anemia. Elevated ferritin level. - Seen by drug clerk in July 2023 - monitor - Continue current iron supplementation Assessment & Plan (04/26/2024 10:33 AM EDT): - Normocytic anemia. Elevated ferritin level. - Seen by drug clerk in July 2023 - monitor - Continue current iron supplementation Assessment & Plan (03/07/2024 3:45 PM EDT): - Normocytic anemia. Elevated ferritin level. - Seen by drug clerk in July 2023 - monitor - Continue current iron supplementation Assessment & Plan (01/25/2024 5:10 PM EDT): - Normocytic anemia. Elevated ferritin level. - Seen by drug clerk in July 2023 - monitor - Continue current iron supplementation Assessment & Plan (10/18/2023 1:00 PM EDT): - Normocytic anemia. Elevated ferritin level. - Seen by drug clerk in July 2023 - monitor - Continue current iron supplementation Assessment & Plan (06/22/2023 5:49 AM EST): - Normocytic anemia. Elevated ferritin. - Seen by drug clerk on 05/13/23 - monitor - Continue current iron supplementation Assessment & Plan (02/21/2023 5:18 AM EDT): -Last CBC shows stable H/H in Aug 2022 -His HR has been upper normal limit and he appears pale. Will check CBC. -Continue current iron supplementation Assessment & Plan (07/04/2022 5:27 AM EST): -Last CBC shows stable H/H 11.8/36.1 -Continue current iron supplementation Diabetes mellitus, type 2 11/13/2012 Assessment & Plan (08/19/2024 12:39 PM EST): -HgbA1C 7.9% on 08/13/24 -Continue working on lifestyle modifications -Continue metformin ER 750 mg bid. Consider further increase. -Continue Actos 45 mg daily. Consider switching to other agent after maximizing metformin. -Treatment Hx: glipizide was discontinued due to hypoglycemia and metformin has not been maximized. -Last eye exam: 03/25/20 -Last foot exam: 04/26/24 -Last microalbumin test: 01/25/24 UACR 112.8 -Last lipid profile: 01/25/24 Total cholesterol 134; Triglyceride 190; HDL 38; LDL 58 -Last dental exam: Assessment & Plan (04/26/2024 10:31 AM EDT): -HgbA1C 6.9% on 04/26/24 -Continue working on lifestyle modifications -Continue metformin ER 750 mg bid. Consider further increase. -Continue Actos 45 mg daily. Consider switching to other agent after maximizing metformin. -Treatment Hx: glipizide was discontinued due to hypoglycemia and metformin has not been maximized. -Last eye exam: 03/25/20 -Last foot exam: 04/26/24 -Last microalbumin test: 01/25/24 UACR 112.8 -Last lipid profile: 01/25/24 Total cholesterol 134; Triglyceride 190; HDL 38; LDL 58 -Last dental exam: Assessment & Plan (03/07/2024 3:20 PM EDT): -HgbA1C 7.8%, trending upwards, 7.4% on 10/18/23, 6.8% on 06/22/23 -Continue working on lifestyle modifications -Continue metformin ER 750 mg bid. Consider further increase. -Continue Actos 45 mg daily. Consider switching to other agent after maximizing metformin. -Treatment Hx: glipizide was discontinued due to hypoglycemia and metformin has not been maximized. -Last eye exam: 03/25/20 -Last foot exam: Feb 2023 -Last microalbumin test: 01/25/24 UACR 112.8 -Last lipid profile: 01/25/24 Total cholesterol 134; Triglyceride 190; HDL 38; LDL 58 -Last dental exam: Assessment & Plan (01/25/2024 5:10 PM EDT): -HgbA1C 7.8%, trending upwards, 7.4% on 10/18/23, 6.8% on 06/22/23 -Continue working on lifestyle modifications -Continue metformin ER 750 mg bid. Consider further increase. -Continue Actos 45 mg daily. Consider switching to other agent after maximizing metformin. -Treatment Hx: glipizide was discontinued due to hypoglycemia and metformin has not been maximized. -Last eye exam: 03/25/20 -Last foot exam: Feb 2023 -Last microalbumin test: 02/14/23 UACR 23.9 -Last lipid profile: 02/22/23 TC 149; TG 157; HDL 37; LDL 76 -Last dental exam: --Follow-up in 3 months Assessment & Plan (10/30/2023 3:07 PM EDT): -HgbA1C 7.4% on 10/18/23, increased from 6.8% on 06/22/23 -Continue working on lifestyle modifications -Increase metformin ER back to 750 mg bid. Continue current medications: Metformin 1000 -Continue Actos 45 mg daily -Treatment Hx: glipizide was discontinued due to hypoglycemia and metformin has not been maximized. -Last eye exam: 03/25/20 -Last foot exam: Feb 2023 -Last microalbumin test: 02/14/23 UACR 23.9 -Last lipid profile: 02/22/23 TC 149; TG 157; HDL 37; LDL 76 -Last dental exam: --Follow-up in 3 months Assessment & Plan (06/22/2023 5:20 PM EST): -HgbA1C 6.8% on 06/22/23, improved 7.7% on 02/14/23, increased from 6.9% on 06/29/22 -He does not have an adequate housing to cook and eat healthier foods. Will refer him to [facility] department. Will write a letter to the housing authority so that he can move to a decent housing. -Continue working on lifestyle modifications -Continue current medications: Metformin 1000 mg bid; Actos 45 mg daily; glipizide 10 mg bid -Discussed about hypoglycemia precaution. Do not to take glipizide if he is not eating or eating less. -Last eye exam: 03/25/20, No diabetic retinopathy. -Last foot exam: 11/09/22 -Last microalbumin test: 02/14/23 UACR 23.9 -Last lipid profile: 02/22/23 TC 149; TG 157; HDL 37; LDL 76 -Last dental exam: --Follow-up in 3 months Assessment & Plan (02/21/2023 5:16 AM EDT): -HgbA1C 7.7% on 02/14/23, increased from 6.9% on 06/29/22 -He does not have an adequate housing to cook and eat healthier foods. Will refer him to [facility] department. Will write a letter to the housing authority so that he can move to a decent housing. -Continue working on lifestyle modifications -Continue current medications: Metformin 1000 mg bid; Actos 45 mg daily; glipizide 10 mg bid -Discussed about hypoglycemia precaution. Do not to take glipizide if he is not eating or eating less. -Last eye exam: 03/25/20, No diabetic retinopathy. -Last foot exam: 11/09/22 -Last microalbumin test: 03/09/22 UACR 25 -Last lipid profile: 03/09/22 -Last dental exam: --Follow-up in 3 months Assessment & Plan (11/19/2022 11:04 AM EDT): -HgbA1C 6.9% on 06/29/22, 6.7% on 03/08/22 -Continue working on lifestyle modifications -Continue current medications: Metformin 1000 mg bid; Actos 45 mg daily; glipizide 10 mg bid -Discussed about hypoglycemia precaution. Do not to take glipizide if he is not eating or eating less. -Last eye exam: 03/25/20, No diabetic retinopathy. -Last foot exam: 11/09/22 -Last microalbumin test: 03/09/22 UACR 25 -Last lipid profile: 03/09/22 -Last dental exam: --Follow-up in 3 months Assessment & Plan (07/04/2022 5:19 AM EST): -HgbA1C 6.9% on 06/29/22 today, 6.7% on 03/08/22 -Continue working on lifestyle modifications -Continue current medications: Metformin 1000 mg bid; Actos 45 mg daily; glipizide 10 mg bid -Discussed about hypoglycemia precaution. Do not to take glipizide if he is not eating or eating less. -Last eye exam: 03/25/20, No diabetic retinopathy. -Last foot exam: Overdue, at next visit -Last microalbumin test: 03/09/22 UACR 25 -Last lipid profile: 03/09/22 -Last dental exam: --Follow-up in 3 months Dyslipidemia 11/13/2012 Assessment & Plan (08/13/2024 3:53 PM EST): -Current medication: atorvastatin 40 mg at bedtime -Last lipid profile: 01/25/24 -Continue current medication and lifestyle modification effort Assessment & Plan (04/29/2024 6:53 AM EDT): -Current medication: atorvastatin 40 mg at bedtime -Last lipid profile: 01/25/24 -Continue current medication and lifestyle modification effort Assessment & Plan (03/07/2024 4:03 PM EDT): -Current medication: atorvastatin 20 mg at bedtime, will increase to 40 mg at bedtime as marked coronary atherosclerosis was noted on CT scan (although he is > 77 yo). -Last lipid profile: 02/22/23 TC 149; TG 157; HDL 37; LDL 76 -Continue current medication and lifestyle modification effort Assessment & Plan (01/25/2024 5:10 PM EDT): -Current medication: atorvastatin 20 mg qhs -Last lipid profile: 02/22/23 TC 149; TG 157; HDL 37; LDL 76 -Continue current medication and lifestyle modification effort Assessment & Plan (10/18/2023 1:00 PM EDT): -Current medication: atorvastatin 20 mg qhs -Last lipid profile: 02/22/23 TC 149; TG 157; HDL 37; LDL 76 -Continue current medication and lifestyle modification effort Assessment & Plan (06/22/2023 5:47 AM EST): -Current medication: atorvastatin 20 mg qhs -Last lipid profile: 02/22/23 TC 149; TG 157; HDL 37; LDL 76 -Continue current medication and lifestyle modification effort Assessment & Plan (02/21/2023 5:20 AM EDT): -Current medication: atorvastatin 20 mg qhs -Last lipid profile: 03/09/22 TC 166; TG 157; HDL 45; LDL 96 -Continue current medication and lifestyle modification effort Assessment & Plan (07/04/2022 5:24 AM EST): -Current medication: atorvastatin 20 mg qhs -Last lipid profile: 03/09/22 TC 166; TG 157; HDL 45; LDL 96 -Continue current medication and lifestyle modification effort Neurogenic bladder 11/13/2012 Assessment & Plan (08/13/2024 3:52 PM EST): - Following with Urologist, [facility], last seen in Apr 2024 -Discontinued Imipramine. -Continue mirabegron -Recently given a sample of Gemtesa -Treatment Hx: Previously on oxybutynin 5 mg which was changed to mirabegron when he went to [place] and was seen by an urologist there. Previously on imipramine, which was recommended to discontinue due to anticholinergic effect. Assessment & Plan (04/29/2024 6:49 AM EDT): - Following with [facility], last seen in Apr 2024 -Discontinued Imipramine. -Continue mirabegron -Recently given a sample of Gemtesa -Treatment Hx: Previously on oxybutynin 5 mg which was changed to mirabegron when he went to [place] and was seen by an urologist there. Previously on imipramine, which was recommended to discontinue due to anticholinergic effect. Assessment & Plan (01/25/2024 5:07 PM EDT): - Following with [facility], last seen in November 2023 -Discontinued Imipramine. -Continue mirabegron -Treatment Hx: Previously on oxybutynin 5 mg which was changed to mirabegron when he went to [place] and was seen by an urologist there. Previously on imipramine, which was recommended to discontinue due to anticholinergic effect. Assessment & Plan (10/18/2023 1:22 PM EDT): - Following with [facility], last seen in July 2023 -Discontinue Imipramine. -Continue mirabegron -Treatment Hx: Previously on oxybutynin 5 mg which was changed to mirabegron when he went to [place] and was seen by an urologist there. Previously on imipramine, which was recommended to discontinue due to anticholinergic effect. Assessment & Plan (06/22/2023 5:42 AM EST): - Following with [facility], last seen on 02/11/2023 -Continue Imipramine. -Continue mirabegron -Treatment Hx: Previously on oxybutynin 5 mg which was changed to mirabegron when he went to [place] and was seen by an urologist there. Assessment & Plan (02/21/2023 5:12 AM EDT): - Following with Urologist, [facility], last seen on 02/11/2023 -Continue Imipramine. -Continue myrbetriq. -Treatment Hx: Previously on oxybutynin 5 mg which was changed to Mybetriq when he went to [place] and was seen by an urologist there. Assessment & Plan (11/09/2022 5:06 PM EDT): Following with Urologist, last seen on 10/2022, requested mote of the visit and it is pending at this time -Continue Imipramine. -Continue myrbetriq. -Treatment Hx: Previously on oxybutynin 5 mg which was changed to Mybetriq when he went to [place] and was seen by an urologist. Assessment & Plan (07/04/2022 5:07 AM EST): -Continue Imipramine. -Continue myrbetriq. -Treatment Hx: Previously on oxybutynin 5 mg which was changed to Mybetriq when he went to [place] and was seen by an urologist. Hypertension 11/13/2012 Assessment & Plan (08/13/2024 4:05 PM EST): -Goal BP < 140/90 per JNC-8, < 130/80 per ACC/AHA (Tx threshold 130/80) -At goal today -Risk factors: Male, BMI, DM, -Co-managed with our pharmacist -Encouraged to check BP at home -Marked coronary atherosclerosis was noted on CT scan -Continue working on lifestyle modification and medication adherence. -Continue amlodipine 5 mg daily. He is already having leg edema. Will consider adding other agents if he needs additional BP med. -Continue ASA 81 mg daily. Treatment Hx -He was prescribed furosemide for peripheral edema in Jun 2019 in ED. Since he has neurogenic bladder, we agreed not to continue furosemide. -Decreased amlodipine from 10 to 5 mg daily due to edema -Previously on lisinopril 40 mg daily, which was discontinued while he was in the hospital for [facility] with hyperkalemia in February 2024. Assessment & Plan (04/29/2024 6:54 AM EDT): -Goal BP < 140/90 per JNC-8, < 130/80 per ACC/AHA (Tx threshold 130/80) -Not at goal today -Risk factors: Male, BMI, DM, -Co-managed with our pharmacist -Encouraged to check BP at home -Marked coronary atherosclerosis was noted on CT scan -Continue working on lifestyle modification and medication adherence. -Continue amlodipine 5 mg daily. He is already having leg edema. Will consider adding other agents if he needs additional BP med. -Continue ASA 81 mg daily. Treatment Hx -He was prescribed furosemide for peripheral edema in Jun 2019 in ED. Since he has neurogenic bladder, we agreed not to continue furosemide. -Decreased amlodipine from 10 to 5 mg daily due to edema -Previously on lisinopril 40 mg daily, which was discontinued while he was in the hospital for [facility] with hyperkalemia in February 2024. Assessment & Plan (03/07/2024 2:59 PM EDT): -Goal BP < 140/90 per JNC-8, < 130/80 per ACC/AHA (Tx threshold 130/80) -at goal today, lower than usual -Risk factors: Male, BMI, DM, -Continue working on lifestyle modification and medication adherence. -Continue amlodipine 5 mg daily. -Check whether he is taking lisinopril with the pharmacy -Continue ASA 81 mg daily. Treatment Hx -He was prescribed furosemide for peripheral edema in Jun 2019 in ED. Since he has neurogenic bladder, we agreed not to continue furosemide. -Decreased amlodipine from 10 to 5 mg daily due to edema -Previously on lisinopril 40 mg daily, which was discontinued while he was in the hospital for [facility] with hyperkalemia. Assessment & Plan (01/25/2024 5:06 PM EDT): -Goal BP < 140/90 per JNC-8, < 130/80 per ACC/AHA (Tx threshold 130/80) -at goal today -Risk factors: Male, BMI, DM, -Continue working on lifestyle modification and medication adherence. -Continue lisinopril 40 mg daily. If CXR is negative and antitussive is ineffective, consider switching to ARB, such as olmesartan. Monitor K since patient has a history of mildly elevated K. -Continue amlodipine 5 mg daily. -Continue ASA 81 mg daily. Treatment Hx He was prescribed furosemide for peripheral edema in Jun 2019 in ED. Since he has neurogenic bladder, we agreed not to continue furosemide. Edema may be the side effect of amlodipine. Decreased amlodipine from 10 to 5 mg daily - Follow up in 3 mo or sooner prn Assessment & Plan (10/30/2023 3:18 PM EDT): -Goal BP < 140/90 per JNC-8, < 130/80 per ACC/AHA (Tx threshold 130/80) -Not at goal today -Risk factors: Male, BMI, DM, -Continue working on lifestyle modification and medication adherence. -Continue lisinopril 40 mg daily. -Continue amlodipine 5 mg daily. -Continue ASA 81 mg daily. Treatment Hx He was prescribed furosemide for peripheral edema in Jun 2019 in ED. Since he has neurogenic bladder, we agreed not to continue furosemide. Edema may be the side effect of amlodipine. Decreased amlodipine from 10 to 5 mg daily - Follow up in 3 mo or sooner prn Assessment & Plan (06/22/2023 5:41 AM EST): -Goal BP < 140/90 per JNC-8, < 130/80 per ACC/AHA (Tx threshold 130/80) -Risk factors: Male, BMI, DM, -Continue working on lifestyle modification and medication adherence. -Continue lisinopril 40 mg daily. -Continue amlodipine 10 mg daily. -Continue ASA 81 mg daily. Treatment Hx He was prescribed furosemide for peripheral edema in Jun 2019 in ED. Since he has neurogenic bladder, we agreed not to continue furosemide. Edema may be the side effect of amlodipine. Decreased amlodipine from 10 to 5 mg daily - Follow up in 3 mo or sooner prn Assessment & Plan (02/21/2023 5:04 AM EDT): -Goal BP < 140/90 per JNC-8, < 130/80 per ACC/AHA (Tx threshold 130/80) -Risk factors: Male, BMI, DM, -Continue working on lifestyle modification and medication adherence. -Continue lisinopril 40 mg daily. -Continue amlodipine 10 mg daily. -Continue ASA 81 mg daily. Treatment Hx He was prescribed furosemide for peripheral edema in Jun 2019 in ED. Since he has neurogenic bladder, we agreed not to continue furosemide. Edema may be the side effect of amlodipine. Decreased amlodipine from 10 to 5 mg daily - Follow up in 3 mo or sooner prn Assessment & Plan (11/09/2022 4:59 PM EDT): -Goal BP < 140/90 per JNC-8, < 130/80 per ACC/AHA (Tx threshold 130/80) -Risk factors: Male, BMI, DM, -Continue working on lifestyle modification and medication adherence. -Continue lisinopril 40 mg daily. -Continue amlodipine 10 mg daily. -Continue ASA 81 mg daily. Treatment Hx He was prescribed furosemide for peripheral edema in Jun 2019 in ED. Since he has neurogenic bladder, we agreed not to continue furosemide. Edema may be the side effect of amlodipine. Assessment & Plan (07/04/2022 5:04 AM EST): -Goal BP < 140/90 per JNC-8, < 130/80 per ACC/AHA (Tx threshold 130/80) -Risk factors: Male, BMI, DM, -Continue working on lifestyle modification and medication adherence. -Continue lisinopril 40 mg daily. -Continue amlodipine 10 mg daily. -Continue ASA 81 mg daily. Treatment Hx He was prescribed furosemide for peripheral edema in Jun 2019 in ED. Since he has neurogenic bladder, we agreed not to continue furosemide. Edema may be the side effect of amlodipine. Tubular adenoma of colon 11/13/2012 Status post prostatectomy 11/13/2012 Assessment & Plan (03/07/2024 3:44 PM EDT): - salvage radiation treatment 01/16/24 - 02/16/24, interrupted due to UTI Prostate cancer 11/13/2012 Assessment & Plan (08/13/2024 3:52 PM EST): Dx in 1992. s/p prostatectomy in 1992 in [place]. Urologist: [facility] [facility], last seen in Apr 2024 Hx hypogonadism, neurogenic bladder, and recurrent UTI PSA 0.7 in 10/2022, increased from previous PSA Abd/pelvis CT and NM bone scan in 2022 showed no sign of recurrence per specialist Due to increasing PSA after prostatectomy, pt was referred to radiation oncologist. CT/PET scan on 11/07/23 showed recurrence of prostate cancer with metastatic lesions. Leuprolide injection (Camcevi) started on 11/23/23, q6mo schedule SBRT started on 01/13/24, stopped on 02/16/24 because he was hospitalized on 02/17/24. Resumed in february. Completed on 04/02/24. Continue current treatment plan per urologist and oncologist. Assessment & Plan (04/29/2024 6:48 AM EDT): Dx in 1992. [place] Urologist: [facility], last seen in Apr 2024 Hx hypogonadism, neurogenic bladder, and recurrent UTI PSA 0.7 in 10/2022, increased from previous PSA Abd/pelvis CT and NM bone scan in 2022 showed no sign of recurrence per specialist Due to increasing PSA after prostatectomy, pt was referred to radiation oncologist. CT/PET scan on 11/07/23 showed recurrence of prostate cancer with metastatic lesions. Leuprolide injection (Camcevi) started on 11/23/23, q6mo schedule SBRT started on 01/13/24, stopped on 02/16/24 because he was hospitalized on 02/17/24. Resumed in late February. Completed on 04/02/24. Continue current treatment plan per urologist and oncologist. Assessment & Plan (03/07/2024 3:03 PM EDT): Dx in 1992. [place] 1992 [place] Urologist: [facility], last seen in November 2023 Hx hypogonadism, neurogenic bladder, and recurrent UTI PSA 0.7 in 10/2022, increased from previous PSA Abd/pelvis CT in 2022 showed no sign of recurrence per specialist NM Bone scan on 07/04/24 showed no evidence of osseous metastatic disease However, due to increasing PSA after prostatectomy, pt was referred to radiation oncologist for treatment options in the future CT/PET scan on 11/07/23 showed recurrence of prostate cancer with metastatic lesions. Leuprolide injection started on 11/23/23 SBRT started on 01/13/24, stopped on 02/16/24 because he was hospitalized on 02/17/24. Patient is planning to resume SBRT once he feels stronger Assessment & Plan (01/25/2024 5:37 AM EDT): Dx in 1992. [place] Urologist: [facility], last seen in November 2023 Hx hypogonadism, neurogenic bladder, and recurrent UTI PSA 0.7 in 10/2022, increased from previous PSA Abd/pelvis CT in 2022 showed no sign of recurrence per specialist NM Bone scan on 07/04/24 showed no evidence of osseous metastatic disease However, due to increasing PSA after prostatectomy, pt was referred to radiation oncologist for treatment options in the future CT/PET scan on 11/07/23 showed recurrence of prostate cancer with metastatic lesions. Leuprolide injection started on 11/23/23 SBRT started on 01/13/24 Assessment & Plan (01/25/2024 5:34 AM EDT): >>ASSESSMENT AND PLAN FOR HISTORY OF PROSTATE CANCER WRITTEN ON 07/04/2022 5:25 AM BY JOLLY CONSTANTINO MD Dx in 1992. [place] Urologist: Dr. Brush, last seen in Apr 2020 Hx hypogonadism, neurogenic bladder, and recurrent UTI last UTI in Jun 2015. last PSA 0.28 on 03/09/22 No sign of recurrence per specialist. Continue current treatment plan. Assessment & Plan (01/25/2024 5:34 AM EDT): >>ASSESSMENT AND PLAN FOR HISTORY OF PROSTATE CANCER WRITTEN ON 11/09/2022 5:07 PM BY JASON STERN Dx in 1992. [place] 1992 [place] Urologist: Dr. Brush, last seen in 10/2022, requested mote of the visit and it is pending at this time Hx hypogonadism, neurogenic bladder, and recurrent UTI last UTI in 10/2022 last PSA 0.28 on 03/09/22 No sign of recurrence per specialist. Continue current treatment plan. Assessment & Plan (01/25/2024 5:34 AM EDT): >>ASSESSMENT AND PLAN FOR HISTORY OF PROSTATE CANCER WRITTEN ON 02/21/2023 5:20 AM BY JOLLY CONSTANTINO MD Dx in 1992. [place] Urologist: [facility], last seen in January 2023 Hx hypogonadism, neurogenic bladder, and recurrent UTI last UTI in 10/2022 last PSA 0.7 in 10/2022, increased from previous PSA Abd/pelvis CT recently showed no sign of recurrence per specialist Continue current treatment plan. Assessment & Plan (10/18/2023 1:23 PM EDT): Dx in 1992. [place] Urologist: [facility], last seen in May 2023 Hx hypogonadism, neurogenic bladder, and recurrent UTI last PSA 0.7 in 10/2022, increased from previous PSA Abd/pelvis CT in 2022 showed no sign of recurrence per specialist NM Bone scan on 07/04/24 showed no evidence of osseous metastatic disease However, due to increasing PSA after prostatectomy, pt was referred to radiation oncologist for treatment options in the future PET scan is scheduled on 10/24/23. Patient is considering about radiation treatment Assessment & Plan (01/25/2024 5:34 AM EDT): >>ASSESSMENT AND PLAN FOR PROSTATE CANCER ([facility]) WRITTEN ON 06/22/2023 12:44 PM BY JOLLY CONSTANTINO MD Dx in 1992. [place] Urologist: [facility], last seen in May 2023 Hx hypogonadism, neurogenic bladder, and recurrent UTI last PSA 0.7 in 10/2022, increased from previous PSA Abd/pelvis CT in 2022 showed no sign of recurrence per specialist However, due to increasing PSA after prostatectomy, pt was referred to radiation oncologist for treatment options in the future Pt needs to complete Bone Scan before next appt with urologist and radiation oncologist Called [facility] and requested an assistance in rescheduling Bone Scan appt and giving instruction in Maldivian. The special forces officer has kindly agreed to do so. >>ASSESSMENT AND PLAN FOR HISTORY OF PROSTATE CANCER WRITTEN ON 06/22/2023 12:44 PM BY JOLLY CONSTANTINO MD Dx in 1992. [place] Urologist: [facility], last seen in May 2023 Hx hypogonadism, neurogenic bladder, and recurrent UTI last PSA 0.7 in 10/2022, increased from previous PSA Abd/pelvis CT in 2022 showed no sign of recurrence per specialist However, due to increasing PSA after prostatectomy, pt was referred to radiation oncologist for treatment options in the future Pt needs to complete Bone Scan before next appt with urologist and radiation oncologist Called [facility] and requested an assistance in rescheduling Bone Scan appt and giving instruction in Maldivian. The special forces officer has kindly agreed to do so. Resolved Problems Problem Noted Date Diagnosed Date Resolved Date Gastroesophageal reflux disease 01/07/2016 07/04/2022 Helicobacter pylori gastroin testinal tract infection 01/07/2016 01/25/2024 Encounters Date Type Department Care Team Description 09/17/2024 Orders Only [facility] External Provider, [facility] 09/07/2024 2:00 PM EST Office Visit [facility] [address] [place] [phone] Gareth Fox DDS Partial edentulism, unspecified edentulism class (Primary Dx) 09/05/2024 1:30 PM EST Office Visit [facility] [address] [place] [phone] Gareth Fox DDS Excessive attrition of teeth, 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 (Primary Dx); Dental plaque; Missing teeth, acquired 08/31/[address] [phone] Jolly Constantino MD Homecare Delivered (Automatic BP Monitor, Dial) 08/23/[address] [address] Melissa Ashraf MA 08/22/[address] [address] Melissa Ashraf [place] Appointment Request; dme bp monitor 08/18/[address] [address] Jolly Constantino MD Primary hypertension 08/13/2024 3:00 PM EST Office Visit [facility] [address] [place] [address] Jolly Constantino MD Primary hypertension (Primary Dx); Prostate cancer ([facility]); Neurogenic bladder; Recurrent UTI; Type 2 diabetes mellitus with hyperglycemia, without long-term current use of insulin ([facility]); Anemia of chronic disease; Sensorineural hearing loss, bilateral; Dyslipidemia 08/13/2024 Travel 07/30/2024 Travel 06/27/2024 Refill [facility] [address] [place] [address] Margot Elise MD from Last 3 Months Immunizations Name Administration Dates Next Due Hep B, adult 06/18/2014,04/14/2011,02/09/2011 Influenza High-dose Quadriva lent Preservative Free 06/23/2023,03/31/2021,04/21/2020 Influenza injectable quadriv alent IIV4 with preservative 06/29/2022,04/14/2016,04/25/2015 Influenza, High Dose Seasona l, Preservative Free 04/16/2024,05/23/2019,05/02/2018,04/19 Influenza, IIV3, injectable 06/18/2014, 1 Influenza, Split (incl. nicolle fied surface antigen) 03/27/2013,04/25/2012 Moderna Covid-19 Vaccine 12+ 11/09/2021, 06/03/2021,09/25/2020,08/28 Moderna Covid-19 Vaccine 6+ Bivalent 07/06/2022 Pfizer Covid-19 Vaccine 12+ 04/16/2024, 3 Pneumococcal Conjugate PCV 13 10/28/2014 Pneumococcal Polysaccharide PPSV23 11/22/2006, RSV Bivalent 08/17/2023 TD (adult), 2 Lf tetanus tox oid, preservative free, adsorbed 10/24/2003 Tdap 08/17/2023,11/13/2012 Zoster, Recombinant 01/07/2023,03/30/2022 Zoster, live 10/28/2014 Family History Medical History Relation Name Comments Stroke Father Stroke Mother Relation Name Status Comments Father Mother Social History Tobacco Use Types Packs/Day Years Used Date Smoking Tobacco: Former Cigarettes Passive Smoke Exposure: Never Smokeless Tobacco: Never Tobacco Cessation:Counseling Given: Not Answered Alcohol Use Standard Drinks/Week Comments Defer 0 (1 standard drink = 0.6 oz pur e alcohol) Depression Answer Date Recorded Patient Health Questionnaire-9 Score 1 08/13/2024 Patient Health Questionnaire-9 Score 1 08/13/2024 Last PHQ-9: Questionnaire Data Not on file 0 08/13/2024 Housing Stability Answer Date Recorded What is your housing situation today? I have conrad nolan 10/07/[address] you li ve. Do you have problems with any of the following? None of the above 10/07/2023 Food Insecurity Answer Date Recorded Within the past 12 months, y ou worried that your food would run out before you got money to buy more: Never True 10/07/2023 Within the past 12 months,th e food you bought just didn't last and you didn't have enough money to get more: Never True Transportation Answer Date Recorded In the past 12 months, has l ack of transportation kept you from medical appts, meetings, work or from getting things needed for daily living? No 05/13/2023 Utilities Answer Date Recorded In the past 12 months, has t he electric, gas, oil or water company threatened to shut off services in your home? No 05/13/2023 Depression Answer Date Recorded Patient Health Questionnaire-2 Score 0 08/13/2024 Sex and Gender Information Value Date Recorded Sex Assigned at Male 05/17/2022 10:15 AM EDT Legal Sex Male 10:15 AM EDT Gender Identity Male 05/17/2022 10:15 AM EDT Sexual Orientation Straight 05/17/2022 10 :15 AM EDT Last Filed Vital Signs Vital Sign Reading Time Taken Comments Blood Pressure 146/80 09/05/2024 1:51 PM EST Pulse 60 08/13/2024 3:11 PM EST Temperature 36.2 ??C (97.2 ??F) 08/13/2024 3:11 PM ES T Respiratory Rate 16 08/13/2024 3:11 PM EST Oxygen Saturation 99% 04/26/2024 9:51 AM EDT Inhaled Oxygen Concentration - - Weight 78 kg (172 lb) 08/13/2024 3:11 PM EST Height 154.9 cm (5' 1 ) 03/07/2024 2:05 PM EDT Body Mass Index 32.5 03/07/2024 2:05 PM EDT Plan of Treatment Health Maintenance Due Date Last Done Comments Dental Prophylaxis 1935 Dental X-Ray: Bitewings 1935 Hepatitis A Vaccines (1 of 2 - Risk 2-dose series) 1954 SDOH Screening 10/06/2024 10/07/2023 Diabetes: Hemoglobin A1C 11/11/2024 025, 04/26/2024, 01/25/2024, Additional history exists Diabetes: Urine Protein Screening 01/24/2025 01/25/2024, 02/14/2023, 03/09/2022, Additional history exists Dental Oral Exam 03/06/2025 09/05/2024 Alcohol/Substance Use Screening 04/26/2025 04/26/2024 Diabetes: Foot Exam 04/26/2025 04/26/2024, 04/26/2024, 04/26/2024, Additional history exists Depression Screening 08/13/2025 08/13/2024, 08/13/19 Tobacco Screening 09/07/2025 09/07/2024 Lipid Panel 09/17/2025 09/17/2024, 01/15, 02/22/2023, Additional history exists Eye Exam 12/07/2025 12/08/2023 Dental X-Ray: Full Mouth 09/06/2027 09/05/2024 DTaP/Tdap/Td Vaccines (3 - Td or Tdap) 08/17/2033 08/17/2023, 11/13/2012, 10/24/2003 Hepatitis B Vaccines Completed 06/18/2014, 04/14/2011, 02/09/2011 Pneumococcal Vaccine: 50+ Years Completed 10/28/2014, 11/22/2006, 05/11/2000 Zoster Vaccines Completed 01/07/2023, 03/18, 10/28/2014 RSV Patients and Patients Aged 60 years or older Completed 08/17/2023 COVID-19 Vaccine Completed 04/16/2024, 01/2023, 07/06/2022, Additional history exists Influenza Vaccine Completed 04/16/2024, , 06/29/2022, Additional history exists HIB Vaccines Aged Out No longer eligi ble based on patient's age to complete this topic HPV Vaccines Aged Out No longer eligi ble based on patient's age to complete this topic IPV Vaccines Aged Out No longer eligi ble based on patient's age to complete this topic Meningococcal Vaccine Aged Out No bartolo kelechi eligible based on patient's age to complete this topic RSV under 20 months Aged Out No longe r eligible based on patient's age to complete this topic Rotavirus Vaccines Aged Out No longer eligible based on patient's age to complete this topic Goals Goal Patient Goal Type Associated Problems Recent Progress Patient-Stated? Author Blood Pressure < 140/90 Blood Pressure 146/80( 025 1:51 PM EST) No Javier Benton, Marc Procedures Procedure Name Priority Date/Time Associated Diagnosis Comments HIGH SENSITIVITY TROPONIN I Routine 09/17/2024 1:26 PM EST LIPID PANEL, STANDARD Routine 09/17/2024 1:26 PM EST BASIC METABOLIC PANEL Routine 09/17/2024 1:26 PM EST APTT Routine 09/17/2024 1:26 PM EST PROTHROMBIN TIME-INR Routine 09/17/2024 1:26 PM EST CBC WITH AUTO DIFFERENTIAL Routine 09/17/2024 1:26 PM EST GLUCOSE, WHOLE BLOOD Routine 09/17/2024 1:24 PM EST PROTHROMBIN TIME WHOLE BLD POC Routine 09/17/2024 1:24 PM EST ~PT, ~INR - ANTI COAG CLINIC Routine 09/17/2024 1:24 PM EST XR CHEST 1 VIEW Routine 09/17/2024 1:00 PM EST CTA HEAD STROKE W AND WO CONTRAST Routine 09/17/2024 12:[address] HEAD STROKE WO CONTRAST Routine 09/17/2024 12:56 PM EST 12 ADD CLASP TO EXISTING PARTIAL DENTURE - PER TOOTH Routine 09/07/2024 2:00 PM EST 2 ADD CLASP TO EXISTING PARTIAL DENTURE - PER TOOTH Routine 09/07/2024 2:00 PM EST REPAIR RESIN PARTIAL DENTURE BASE, MAX Routine 09/07/2024 2:00 PM EST CASE PRESENTATION, DETAILED AND EXTENSIVE TREATMENT PLANNING Routine 09/07/2024 2:00 PM EST 3,8,9,13,15 PARTIAL DENTURE - CAST METAL Routine 09/07/2024 12:00 AM EST CASE PRESENTATION, DETAILED AND EXTENSIVE TREATMENT PLANNING Routine 09/05/2024 1:30 PM EST PANORAMIC RADIOGRAPHIC IMAGE Routine 09/05/2024 1:30 PM EST PERIODIC ORAL EVALUATION - ESTABLISHED PATIENT Routine 09/05/2024 1:30 PM EST POCT GLYCOSYLATED HEMOGLOBIN (HGB A1C) Routine 08/13/2024 3:13 PM EST Type 2 diabetes mellitus with hyperglycemia, without long-term current use of insulin (CMS/HCC) POCT GLUCOSE Routine 08/13/2024 3:12 PM EST Type 2 diabetes mellitus with hyperglycemia, without long-term current use of insulin (CMS/HCC) ALBUMIN, RANDOM URINE W/CREATININE Routine 01/25/2024 4:06 PM EDT Type 2 diabetes mellitus with hyperglycemia, without long-term current use of insulin (CMS/HCC) HM DIABETES EYE EXAM Routine 12/08/2023 from Last 3 Months or Most Recently Relevant to Health Maintenance Results * High Sensitivity Troponin I (09/17/2024 1:26 PM EST) TROPONIN I HIGH SENSITIVITY <2.7 <3.5 - 35.0 ng/L [facility] Comment:The Manuel high sens itivity Troponin-I results should beused in conjunction with other diagnostic information suchas ECG, clinical observations and information, and patientsymptoms to aid in the diagnosis of ME. 09/17/2024 1:26 PM EST 09/17/2024 1:34 PM EST us Generic External Data Provider LAB BLOOD ORDERAB LES Final Result [facility] [address] [place] [address] [phone] * (ABNORMAL) CBC auto differential (09/17/2024 1:26 PM EST) White Blood Count 5.9 4.8 - 10.8 X10*3/uL [facility] Red Blood Count 3.97(L) 4.60 - 5.80 X10*6/uL [facility] Hemoglobin 10.8(L) 14.0 - 18.0 g/dl [facility] Hematocrit 33.4(L) 42.0 - 52.0 % [facility] Mean Corpuscular Volume 84.1 80.0 - 98.0 fL [facility] Mean Corpuscular Hemoglobin 27.2 27.0 - 33.0 pg [facility] Mean Corpuscular HGB Conc 32.3 31.0 - 36.0 g/dl [facility] Red Cell Distribution Width 17.6(H) 11.0 - 16.0 % [facility] Platelet Count 223 160 - 400 X10*3/uL [facility] Mean Platelet Volume 10.4 9.4 - 12.4 fL [facility] Neutrophils Percent Auto 86.1(H) 45 - 73 % [facility] Imm Gran Pct Auto 0.5(H) 0.0 - 0.4 % [facility] Lymphocytes Percent Auto 5.7(L) 20 - 40 % [facility] Monocytes Percent Auto 7.3 2 - 11 % [facility] Eosinophils Percent Auto 0.2 0 - 4 % [facility] Basophils Percent Auto 0.2 0 - 2 % [facility] NRBC Pct Auto 0.0 0.0 - 0.2 /100WBC [facility] Neutrophils Absolute Auto 5.1 2.0 - 8.3 x10*3/uL [facility] Imm Gran Abs Auto 0.03 0.00 - 0.03 X10*3/uL [facility] Lymphocytes Absolute Auto 0.3(L) 1.2 - 4.9 X10*3/uL [facility] Monocytes Absolute Auto 0.4 0.1 - 1.2 X10*3/uL [facility] Eosinophils Absolute Auto 0.0 0.0 - 0.4 X10*3/uL [facility] Basophils Absolute Auto 0.0 0.0 - 0.2 X10*3/uL [facility] NRBC Abs Auto 0.000 0.0 - 0.012 X10*3/uL [facility] 09/17/2024 1:26 PM EST 09/17/2024 1:34 PM EST us Generic External Data Provider LAB BLOOD ORDERAB LES Final Result Performing Organization Address City/[facility]/ZIP Co de Phone Number [facility] [address] [place] [phone] * Partial Thromboplastin Time, Activated (APTT) (09/17/2024 1:26 PM EST) Pathologist [facility] Partial Thromboplastin Time 33.9 26.0 - 36.8 SEC [facility] Comment:For information rega rding the monitoring of direct thrombininhibitors, please refer to Pharmacy. 09/17/2024 1:26 PM EST 09/17/2024 1:34 PM EST us Generic External Data Provider LAB BLOOD ORDERAB LES Final Result Performing Organization Address [facility]/ZIP Co de Phone Number [facility] [address] [place] [phone] * (ABNORMAL) Prothrombin Time-INR (09/17/2024 1:26 PM EST) Prothrombin Time 10.5(L) 10.9 - 12.4 SEC [facility] INTERNATIONAL NORM RATIO 0.9 0.9 - 1.1 [facility] Comment:INTERNATIONAL NORMAL IZED RATIO (INR) REFERENCE RANGES Reference RangeFor patients not on anticoagulant therapy: 0.9 - 1.1INR ranges for oral anticoagulanttherapy:For prevention and treatment of venous thrombosis and pulmonary embolism: 2.0 - 3.0For acute myocardial infarction with aspirin therapy: 2.0 - 3.0For acute myocardial infarction without aspirin therapy: 3.0 - 4.0For patients with mechanical prosthetic heart valves: 2.5 - 3.5 09/17/2024 1:26 PM EST 09/17/2024 1:34 PM EST us Generic External Data Provider LAB BLOOD ORDERAB LES Final Result [facility] [address] [place] [phone] * Lipid Panel, Standard (09/17/2024 1:26 PM EST) Triglycerides 120 <150 mg/dL [facility] Comment:Desirable Triglyceri de: less than 150 mg/dLBorderline High Triglyceride 150-199 mg/dLHigh Triglyceride: 200-499 mg/dLVery High Triglyceride: greater than or equal to 5OO mg/dL Cholesterol 113 <200 mg/dL [facility] Comment:Desirable Cholestero l: less than 200 mg/dLBorderline High Cholesterol: 200-239 mg/dLHigh Cholesterol: greater than 239 mg/dL LDL Cholesterol Calculated 47 <100 mg/dL [facility] Comment:Desirable LDL: less than 100 mg/dLNear Optimal/Above Optimal LDL: 110- 129 mg/dLBorderline High LDL: 130-159 mg/dLHigh LDL: 160-189 mg/dLVery High LDL: greater than or equal to 190 mg/dL HDL Cholesterol 42 >40 mg/dL [facility] Comment:Desirable HDL: great er than 40 mg/dL Note: This HDL assay may give artificially low results in patients with liver disease. 09/17/2024 1:26 PM EST 09/17/2024 1:34 PM EST us Generic External Data Provider LAB BLOOD ORDERAB LES Final Result Performing Organization Address City/[facility]/ZIP Co de Phone Number [facility] [address] [place] [address] [phone] * (ABNORMAL) Basic Metabolic Panel (09/17/2024 1:26 PM EST) Sodium 139 135 - 145 mmol/L [facility] Potassium 4.1 3.3 - 5.1 mmol/L [facility] Chloride 108 96 - 108 mmol/L [facility] Carbon Dioxide 22 22 - 29 mmol/L [facility] Anion Gap 13 12 - 20 [facility] Urea Nitrogen (BUN) 21(H) 9 - 16 mg/dL [facility] Creatinine, Serum 1.18 0.5 - 1.4 mg/dL [facility] Creatinine Clr Calc Pharmacy 42.3 [facility] Comment:eGFR (calculated fro m the MDRD study equation) and eCrCl(calculated from the Cockcroft-Gault equation) are based ondifferent parameters and may not yield comparable results.If eCrCl result is absurd, please check patient'sheight/weight. Estimated Glomerular Filt Rate 59 [facility] Comment:Chronic Kidney Disea se: Estimated GFR < 60 mL/min/1.97k2Xopnjr Kidney Disease: Estimated GFR < 15 mL/min/1.73m2 Glucose 249(H) 60 - 115 mg/dL [facility] Calcium 9.2 8.4 - 10.2 mg/dL [facility] 09/17/2024 1:26 PM EST 09/17/2024 1:34 PM EST us Generic External Data Provider LAB BLOOD ORDERAB LES Final Result Performing Organization Address City/[facility]/ZIP Co de Phone Number [facility] [address] [place] [address] [phone] * (ABNORMAL) Glucose, Whole Blood (09/17/2024 1:24 PM EST) Glucose, Whole Blood 233(H) 60 - 115 mg/dL [facility] Comment:METER #: [id number] 09/17/2024 1:24 PM EST 09/17/2024 1:31 PM EST Generic External Data Provider LAB BLOOD ORDERAB LES Final Result Performing Organization Address [facility] Co de Phone Number [facility] [address] [place] [phone] * PROTHROMBIN TIME WHOLE BLD POC (09/17/2024 1:24 PM EST) Pathologist [facility] Protime 11.3 11.1 - 13.5 sec [facility] 09/17/2024 1:24 PM EST 09/17/2024 1:29 PM EST [employer] External Data Provider LAB BLOOD ORDERAB LES Final Result Performing Organization Address [facility] de Phone Number [facility] [address] [place] [phone] * ~PT, ~INR - ANTI COAG CLINIC (09/17/2024 1:24 PM EST) [facility] Prothrombin Time INR 0.9 0.9 - 1.1 [facility] Comment:METER #: [id number] TERNATIONAL NORMALIZED RATIO (INR) REFERENCE RANGES Reference RangeFor patients not on anticoagulant therapy: 0.9 - 1.1INR ranges for oral anticoagulanttherapy:For prevention and treatment of venous thrombosis and pulmonary embolism: 2.0 - 3.0For acute myocardial infarction with aspirin therapy: 2.0 - 3.0For acute myocardial infarction without aspirin therapy: 3.0 - 4.0For patients with mechanical prosthetic heart valves: 2.5 - 3.5 09/17/2024 1:24 PM EST 09/17/2024 1:29 PM EST us Generic External Data Provider LAB BLOOD ORDERAB LES Final Result [facility] [address] [place] [place] [address] [phone] * XR Chest 1 View (09/17/2024 1:00 PM EST) Anatomical Region Laterality Modality Chest Radiographic Edilia ging 09/17/2024 1:00 PM EST Narrative 09/17/2024 1:28 PM EST ? [facility] ?[address] ?[place] [address] ?XRay Report ? Signed ? Patient: Cardenas Meehan,Toni ? MR#: [id number] ? : 1935 ?Acct:[id number] ? Age/Sex: 88 / M ?ADM Date: 09/17/24 ? Loc: HO.ED ? Attending Dr: ? Ordering Physician: Jesusita Szymanski ?? Date of Service: 09/17/24 ?? Procedure(s): XR chest 1V ?? Accession Number(s): [id number] ? cc: Jesusita Szymanski; Jolly Constantino MD ? EXAMINATION: ?? XR CHEST ? CLINICAL INFORMATION: ?? Stroke Protocol ? COMPARISON: ?? Chest x-ray 01/25/2024 ? TECHNIQUE: ?? Frontal view of the chest was obtained. ? FINDINGS: ?? No significant abnormality is noted involving the heart, lungs, ?? mediastinum, bony thorax or soft tissues. ? XR/XR chest 1V ?? IMPRESSION: ?? Unremarkable chest examination. ? Electronically signed by: ??Kunal Gatica MD ??09/17/2024 01:26 PM EST RP ? Dictated By: ?Kunal Gatica MD ? Signed By: ?<Electronically signed by Kunal Gatica MD in OV> ?09/17/24 1326 ? DD/ 1300 ? TD/TT: 09/17/24 1305 ? Voice Professor: MSM ? Procedure Note Jacquelin, Isai - 09/17/2024 [id number] [facility] [address] XRay Report Signed Patient: Toni Keys MR#: [id number] : 8Acct:[id number] Age/Sex: 88 / MADM Date: 09/17/24 Loc: HO.ED Attending Dr: Ordering Physician: Jesusita Szymanski Date of Service: 09/17/24 Procedure(s): XR chest 1V Accession Number(s): [id number] cc: Jesusita Szymanski; Jolly Constantino MD EXAMINATION: XR CHEST CLINICAL INFORMATION: Stroke Protocol COMPARISON: Chest x-ray 01/25/2024 TECHNIQUE: Frontal view of the chest was obtained. FINDINGS: No significant abnormality is noted involving the heart, lungs, mediastinum, bony thorax or soft tissues. XR/XR chest 1V IMPRESSION: Unremarkable chest examination. Electronically signed by: Kunal Gatica MD 09/17/2024 01:26 PM EST RP Dictated By: Kunal Gatica MD Signed By: <Electronically signed by Kunal Gatica MD in OV> 09/17/24 1326 DD/ 1300 TD/TT: 09/17/24 1305 Voice Professor: [facility] External Provider IMG XR PROCEDURES Final Result * CTA Head Stroke w/ and w/o Contrast (09/17/2024 12:58 PM EST) Anatomical Region Laterality Modality Computed Tomogra phy 09/17/2024 12:5 8 PM EST Narrative 09/17/2024 1:29 PM EST ? [facility] ?[address] ?[place] [address] ? CT Scan Report ? Signed ? Patient: Cardenas Meehan,Toni ? MR#: [id number] ? : 1935 ?Acct:[id number] ? Age/Sex: 88 / M ?ADM Date: 03/03/25 ? Loc: HO.ED ? Attending Dr: ? Ordering Physician: Jesusita Szymanski ?? Date of Service: 09/17/24 ?? Procedure(s): CT angio head neck STROKE ?? Accession Number(s): [id number] ? cc: Jesusita Szymanski; Jolly Constantino MD ? Report Number: ?? [id number]: Total DLP = ??641.00 mGy-cm ?? EXAMINATION: ??CT HEAD NECK ANGIOGRAPHY WITH IV CONTRAST STROKE ? HISTORY: Stroke Protocol ? COMPARISON: Correlation is made with the unenhanced head CT performed ?? immediately prior. ? TECHNIQUE: ? Helical axial images were obtained from the aortic arch to the vertex ?? after intravenous injection of contrast per standard departmental ?? protocol. ??MIP/3D reconstructions were obtained and reviewed. ??One or ?? more of the following techniques was used for dose reduction: Automated ?? exposure control, adjustment of the mA and/or kV according to patient ?? size, use of iterative reconstruction technique. ? DLP: 641 mGy-cm ? FINDINGS: ? CTA NECK: ? AORTIC ARCH: The visualized portions of the arch as well as innominate, ?? right subclavian, and left subclavian arteries show no hemodynamically ?? significant stenosis. ? Right common carotid artery: ??There is no large vessel occlusion or ?? hemodynamically significant stenosis. ?? Right internal carotid artery: ??There is no large vessel occlusion or ?? hemodynamically significant stenosis. ? Left common carotid artery: ??There is no large vessel occlusion or ?? hemodynamically significant stenosis. ?? Left internal carotid artery: ??There is no large vessel occlusion or ?? hemodynamically significant stenosis. ? (Extracranial internal carotid artery stenosis estimates are based on ?? use of distal ICA as the denominator.) ? Right vertebral artery: ??There is no large vessel occlusion or ?? hemodynamically significant stenosis. ?? Left vertebral artery: ??There is no large vessel occlusion or ?? hemodynamically significant stenosis. ? CTA HEAD: ? Right intracranial ICA: ??There is atherosclerotic calcification of the ?? cavernous and supraclinoid right ICA. There is no large vessel ?? occlusion, hemodynamically significant stenosis, or aneurysm. ?? Right RAFAELA: ??There is no large vessel occlusion, hemodynamically ?? significant stenosis, or aneurysm. ?? Right MCA: ??There is no large vessel occlusion, hemodynamically ?? significant stenosis, or aneurysm. ? Left intracranial ICA: ??There is atherosclerotic calcification of the ?? cavernous and supraclinoid left ICA. There is no large vessel ?? occlusion, hemodynamically significant stenosis, or aneurysm. ?? Left RAFAELA: ??There is no large vessel occlusion, hemodynamically ?? significant stenosis, or aneurysm. ?? Left MCA: ??There is no large vessel occlusion, hemodynamically ?? significant stenosis, or aneurysm. ? Basilar artery: ??There is no large vessel occlusion, hemodynamically ?? significant stenosis, or aneurysm. ?? Superior cerebellar arteries: ??There is no large vessel occlusion, ?? hemodynamically significant stenosis, or aneurysm. ?? Right BUS MATRON: ??There is no large vessel occlusion, hemodynamically ?? significant stenosis, or aneurysm. ?? Left BUS MATRON: ??There is no large vessel occlusion, hemodynamically ?? significant stenosis, or aneurysm. ? VEINS: ??Venous enhancement is within normal limits for this technique. ? SOFT TISSUES: ??The bilateral parotid, submandibular, and thyroid glands ?? are unremarkable. No laryngeal abnormality is identified. There is no ?? cervical lymphadenopathy. ? CT/CT angio head neck STROKE ?? IMPRESSION: ?? No large vessel occlusion, hemodynamically significant stenosis, or ?? aneurysm in the head and neck. ? Electronically signed by: ??Jossue Phan MD ??09/17/2024 01:26 PM EST ? Dictated By: ?Jossue Phan MD ? Signed By: ?<Electronically signed by Jossue Phan MD in OV> ?09/17/24 1326 ? DD/ 1258 ? TD/TT: 09/17/24 1315 ? Voice Professor: ? Procedure Note Jacquelin, Image - 09/17/2024 [address] [place] [address] CT Scan Report Signed Patient: Cardenas Toni Meehan MR#: [id number] : 1936Acct:[id number] Age/Sex: 88 / MADM Date: 09/17/24 Loc: HO.ED Attending Dr: Ordering Physician: Jesusita Szymanski Date of Service: 09/17/24 Procedure(s): CT angio head neck STROKE Accession Number(s): [id number] cc: Jesusita Szymanski; Jolly Constantino MD Report Number: [id number]: Total DLP = 641.00 mGy-cm EXAMINATION: CT HEAD NECK ANGIOGRAPHY WITH IV CONTRAST STROKE HISTORY: Stroke Protocol COMPARISON: Correlation is made with the unenhanced head CT performed immediately prior. TECHNIQUE: Helical axial images were obtained from the aortic arch to the vertex after intravenous injection of contrast per standard departmental protocol. MIP/3D reconstructions were obtained and reviewed. One or more of the following techniques was used for dose reduction: Automated exposure control, adjustment of the mA and/or kV according to patient size, use of iterative reconstruction technique. DLP: 641 mGy-cm FINDINGS: CTA NECK: AORTIC ARCH: The visualized portions of the arch as well as innominate, right subclavian, and left subclavian arteries show no hemodynamically significant stenosis. Right common carotid artery: There is no large vessel occlusion or hemodynamically significant stenosis. Right internal carotid artery: There is no large vessel occlusion or hemodynamically significant stenosis. Left common carotid artery: There is no large vessel occlusion or hemodynamically significant stenosis. Left internal carotid artery: There is no large vessel occlusion or hemodynamically significant stenosis. (Extracranial internal carotid artery stenosis estimates are based on use of distal ICA as the denominator.) Right vertebral artery: There is no large vessel occlusion or hemodynamically significant stenosis. Left vertebral artery: There is no large vessel occlusion or hemodynamically significant stenosis. CTA HEAD: Right intracranial ICA: There is atherosclerotic calcification of the cavernous and supraclinoid right ICA. There is no large vessel occlusion, hemodynamically significant stenosis, or aneurysm. Right RAFAELA: There is no large vessel occlusion, hemodynamically significant stenosis, or aneurysm. Right MCA: There is no large vessel occlusion, hemodynamically significant stenosis, or aneurysm. Left intracranial ICA: There is atherosclerotic calcification of the cavernous and supraclinoid left ICA. There is no large vessel occlusion, hemodynamically significant stenosis, or aneurysm. Left RAFAELA: There is no large vessel occlusion, hemodynamically significant stenosis, or aneurysm. Left MCA: There is no large vessel occlusion, hemodynamically significant stenosis, or aneurysm. Basilar artery: There is no large vessel occlusion, hemodynamically significant stenosis, or aneurysm. Superior cerebellar arteries: There is no large vessel occlusion, hemodynamically significant stenosis, or aneurysm. Right BUS MATRON: There is no large vessel occlusion, hemodynamically significant stenosis, or aneurysm. Left BUS MATRON: There is no large vessel occlusion, hemodynamically significant stenosis, or aneurysm. VEINS: Venous enhancement is within normal limits for this technique. SOFT TISSUES: The bilateral parotid, submandibular, and thyroid glands are unremarkable. No laryngeal abnormality is identified. There is no cervical lymphadenopathy. CT/CT angio head neck STROKE IMPRESSION: No large vessel occlusion, hemodynamically significant stenosis, or aneurysm in the head and neck. Electronically signed by: Jossue Phan MD 09/17/2024 01:26 PM EST Dictated By: Jossue Phan MD Signed By: <Electronically signed by Jossue Phan MD in OV> 09/17/24 1326 DD/ 1258 TD/TT: 09/17/24 1315 Voice Professor: [facility] External Provider IMG CT PROCEDURES Final Result * CT Head Stroke w/o Contrast (09/17/2024 12:56 PM EST) Anatomical Region Laterality Modality Computed Tomogra phy 09/17/2024 12:5 6 PM EST Narrative 09/17/2024 1:15 PM EST ? [facility] ?[address] ?[place] [address] ? CT Scan Report ? Signed ? Patient: Cardenas Meehan,Toni ? MR#: [id number] ? : 1935 ?Acct:[id number] ? Age/Sex: 88 / M ?ADM Date: 03/03/25 ? Loc: HO.ED ? Attending Dr: ? Ordering Physician: Jesusita Szymanski ?? Date of Service: 09/17/24 ?? Procedure(s): CT head for STROKE ?? Accession Number(s): [id number] ? cc: Jesusita Szymanski; Jolly Constantino MD ? Report Number: ?? [id number]: Total DLP = ??629.00 mGy-cm ?? EXAMINATION: CT HEAD WITHOUT IV CONTRAST STROKE ? HISTORY: Stroke Protocol. ? TECHNIQUE: ? Unenhanced helical CT of the head was performed per standard ?? departmental protocol. Coronal and sagittal reformats of the head were ?? also evaluated. One or more of the following techniques was used for ?? dose reduction: Automated exposure control, adjustment of the mA and/or ?? kV according to patient size, use of iterative reconstruction technique. ? DLP: 629 mGy-cm ? COMPARISON: There are no prior studies for comparison. ? FINDINGS: ? BRAIN: ??There is mild prominence of the ventricular system and cortical ?? sulci, consistent with atrophy. Scattered periventricular and ?? subcortical white matter hypodensities are noted which are nonspecific, ?? but often seen in the setting of small vessel ischemic disease. ??There ?? is no mass effect or midline shift. ??No intra- or extra-axial fluid ?? collections are identified. ? SINUSES: The visualized paranasal sinuses are clear. ??The mastoid air ?? cells and middle ear cavities are well pneumatized. ? ORBITS: The visualized orbits are unremarkable. ? BONES/SOFT TISSUES: The extracranial soft tissues are unremarkable. The ?? calvarium is intact. No suspicious lytic or sclerotic lesions. ? CT/CT head for STROKE ?? IMPRESSION: ?? No acute intracranial abnormality. ? Electronically signed by: ??Jossue Phan MD ??09/17/2024 01:12 PM EST ?? RP ? Dictated By: ?Jossue Phan MD ? Signed By: ?<Electronically signed by Jossue Phan MD in OV> ?09/17/ 1312 ? DD/DT: 09/17/ 1256 ? TD/TT: 09/17/ 1308 ? Voice Professor: ? Procedure Note Donotuseinterpreter, Image - 09/17/[address] [address] [address] Scan Report Signed Patient: Toni Kesy MR#: [id number] : 8Acct:[id number] Age/Sex: 88 / MADM Date: 09/17/24 Loc: HO.ED Attending Dr: Ordering Physician: Jesusita Szymanski Date of Service: 09/17/24 Procedure(s): CT head for STROKE Accession Number(s): [id number] cc: Jesusita Szymanski; Jolly Constantino MD Report Number: [id number]: Total DLP = 629.00 mGy-cm EXAMINATION: CT HEAD WITHOUT IV CONTRAST STROKE HISTORY: Stroke Protocol. TECHNIQUE: Unenhanced helical CT of the head was performed per standard departmental protocol. Coronal and sagittal reformats of the head were also evaluated. One or more of the following techniques was used for dose reduction: Automated exposure control, adjustment of the mA and/or kV according to patient size, use of iterative reconstruction technique. DLP: 629 mGy-cm COMPARISON: There are no prior studies for comparison. FINDINGS: BRAIN: There is mild prominence of the ventricular system and cortical sulci, consistent with atrophy. Scattered periventricular and subcortical white matter hypodensities are noted which are nonspecific, but often seen in the setting of small vessel ischemic disease. There is no mass effect or midline shift. No intra- or extra-axial fluid collections are identified. SINUSES: The visualized paranasal sinuses are clear. The mastoid air cells and middle ear cavities are well pneumatized. ORBITS: The visualized orbits are unremarkable. BONES/SOFT TISSUES: The extracranial soft tissues are unremarkable. The calvarium is intact. No suspicious lytic or sclerotic lesions. CT/CT head for STROKE IMPRESSION: No acute intracranial abnormality. Electronically signed by: Jossue Phan MD 09/17/2024 01:12 PM EST RP Dictated By: Jossue Phan MD Signed By: <Electronically signed by Jossue Phan MD in OV> 09/17/24 1312 DD/ 1256 TD/TT: 09/17/24 1308 Voice Professor: [facility] External Provider IMG CT PROCEDURES Final Result * (ABNORMAL) POCT glycosylated hemoglobin (Hgb A1c) (08/13/2024 3:13 PM EST) Hemoglobin A1C 7.9(A) 4.0 - 6.0 % QC Media Lot # [id number] Lot# Expiration Date , Blood Capillary blood specimen / Unknown 08/13/2024 3:13 PM EST Jolly Constantino MD POINT OF CARE TEST ENTER/EDIT OR DERABLES Final Result * POCT glucose manually resulted (08/13/2024 3:12 PM EST) Glucose Blood, POC 170 60 - 200 mg/dL QC Media Lot # [id number] Lot# Expiration Date ,025 Blood Capillary blood specimen / Unknown 08/13/2024 3:12 PM EST Jolly Constantino MD POINT OF CARE TEST ENTER/EDIT OR DERABLES Final Result * (ABNORMAL) Albumin, Random Urine W/Creatinine (01/25/2024 4:06 PM EDT) Creatinine, Urine 29.23 mg/dL [facility] Microalbumin Urine 33.0 mg/L H [facility] Microalbum Creatinine Ratio Ur 112.8(H) <30 ug/mg cr [facility] Comment:Albumin/Creatinine R atio Reference Ranges: Normal: < 30 ug/mg creatinine Microalbuminuria: 30 - 300 ug/mg creatinineClinical Albuminuria: > 300 ug/mg creatinine Urine 01/25/2024 4:06 PM EDT 01/25/2024 5:41 PM EDT us Jolly Constantino MD LAB URINE ORDERABLES Final Resul t [facility] [address] [place] [address] [phone] * Diabetes Eye Exam (12/08/2023) Eye Exam Normal Normal 12/08/2023 us Historical Provider HEALTH MAINTENANCE Final Result from Last 3 Months or Most Recently Relevant to Health Maintenance Insurance [id number] [place] [id number] [facility] Care Teams Programs Assistant Relationship Specialty Start Date End Date Jolly Constantino MD [address] [place] [address] PCP - General Family Medicine 06/29/12 Javier Benton, AreliD [address] [place] [address] Pharmacist Internal Medicine 01/14/23
--- OUTSIDE RECORDS SUMMARY | 2024-09-17 16:01 | XMS_ITS | Encounter Summary ---
Author Organization [employer] Address [address] [facility] [address] [place] [address] Care Team Providers Care Esthetician Spa Name Role Phone Jolly London MD Primary Care Provider [phone] Javier Betnon PharmD Unavailable [phone] Reason for Visit * Reason Comments Med Refill Encounter Details Date Type Department Care Team ([facility] st Contact Info) Description 11/13/2023 Refill [facility] [address] [place] [address] Jolly London MD [address] [place], [place] [phone] Social History Tobacco Use Types Packs/Day Years Used Date Smoking Tobacco: Never Passive Smoke Exposure: Never Smokeless Tobacco: Never Depression Answer Date Recorded Patient Health Questionnaire-9 Score 0 02/14/2023 Housing Stability Answer Date Recorded What is [...] Date Recorded Patient Health Questionnaire-2 Score 0 02/14/2023 Sex and Gender Information Value Date Recorded Sex Assigned at Male 05/17/2022 10:15 AM EDT Legal Sex Male 10:15 AM EDT Gender Identity Male 05/17/2022 10:15 AM EDT Sexual Orientation Straight 05/17/2022 10 :15 AM EDT documented as of this encounter Plan of Treatment Not on file documented as of this encounter Goals Goal Patient Goal Type Associated Problems Recent Progress Patient-Stated? Author Blood Pressure < 140/90 Blood Pressure 146/80( 025 1:51 PM EST) No Javier Benton, PharmD documented as of this encounter Visit Diagnoses Not on filedocumented in this encounter Additional Health Concerns Assessment Noted Time PHQ-9 Depression Total Score: 0 02/15/20 23 1:30 PM EDT documented as of this encounter Care Teams Esthetician Spa Relationship Specialty Start Date End Date Jolly London MD [address] [place] [address] PCP - General Family Medicine 06/29/12 Javier Benton, PharmD [address] [place] [address] Pharmacist Internal Medicine 01/14/23 documented as of this encounter
--- OUTSIDE RECORDS SUMMARY | 2024-09-17 16:01 | XMS_ITS | Encounter Summary ---
Author Organization [employer] Address [address] [facility] [address] [place] [address] Care Team Providers Care Tool/Die Maker Name Role Phone Jolly London MD Primary Care Provider [phone] Javier Benton PharmD Unavailable [phone] Encounter Details Date Type Department Care Team ([facility] st Contact Info) Description 12/14/2023 Orders Only [facility] [address] [place], [place] [phone] Jolly London MD [address] [place], [place] [phone] Social History Tobacco Use Types Packs/Day Years [...] 1:51 PM EST) No Javier Benton, Marc documented as of this encounter Visit Diagnoses Not on filedocumented in this encounter Additional Health Concerns Assessment Noted Time PHQ-9 Depression Total Score: 0 02/15/20 23 1:30 PM EDT documented as of this encounter Care Teams Tool/Die Maker Relationship Specialty Start Date End Date Jolly London MD [address] [place] [address] PCP - General Family Medicine 06/29/12 Javier Benton, AreliD [address] [place] [address] Pharmacist Internal Medicine 01/14/23 documented as of this encounter
--- OUTSIDE RECORDS SUMMARY | 2024-09-17 16:01 | XMS_ITS | Data Portability ---
Author Organization [place] - [facility] Address [address] [place] [address] Assessment Encounter Date Assessment Date Assessment LastModified by Organization Details LastModified Time 01/05/2021 01/05/2021 Pt to provide medical records from Prev PCP at next visit. Consider labs at next f/u [email or web address] Not available 01/05/2021 15:26:09 01/12/2021 01/12/2021 Reviewed records from [place] Date of last visit 10/15/20 Problem list updated. [email or web address] Not available 01/12/2021 13:07:10 01/20/2021 01/20/2021 Reviewed records [place] Date of last visit 10/15/20 Problem list updated. [email or web address] Not available 01/20/2021 14:07:00 04/10/2021 04/10/2021 Reviewed records from [place] Date of last visit 10/15/20 Problem list updated. [email or web address] Not available 04/13/2021 08:45:42 07/15/2021 07/15/2021 Reviewed records from [place] Date of last visit 10/15/20 Problem list updated. [email or web address] Not available 07/15/2021 15:03:41 Plan of Treatment Reminders Order Date Submit Date Provider Last Modified By Organization Details Last Modified Time Details Appointments None recorded. Lab CBC w/ auto diff 2020 021 [place] [facility], [address] [place], [address], 13:36:40 TIBC (total iron-bindin g capacity), serum 2020 021 [place] [facility], [address] [place], [address], 1 13:36:42 CMP, serum or plasma 2020 021 [place] [facility], [address] [place], [address], 1 13:36:41 lipid panel, serum 2020 021 [place] [facility], [address] [place], [address], 1 13:36:42 HbA1c (hemoglobin A1c), blood 2020 021 [place] [facility], [address] [place], [address], 13:36:43 microalbumi n/creatinin e, mass ratio, urine 2020 021 [place] [facility], [address] [place], [address], 13:36:43 urinalysis, dipstick [email or web address] [place] [address] Care, [address], [place], [address], 10:24:06 HbA1c (hemoglobin A1c), blood 2020 021 [place] [facility], [address] [place], [address], 1 13:37:08 microalbumi n/creatinin e, mass ratio, urine 2020 021 [place] [facility], [address] [place], [address], 1 13:37:07 CMP, serum or plasma 2020 021 [place] [facility], [address] [place], [address], 1 13:37:05 lipid panel, serum 2020 021 [place] [facility], [address] [place], [address], 1 13:37:06 CBC w/ auto diff 2020 021 [place] [facility], [address] [place], [address], 1 13:37:04 urinalysis, dipstick 2020 [email or web address] 81 [facility], [address], [place], [address], 14:27:26 Referral ENT referral - Reports fullness to left ear. Has insect removal 3 weeks ago- with abrasion . Txd with Ciprodex gtts x 1 week 2020 021 [email or web address] 78 [facility] [place], [address], [place], [address], 2 17:31:06 urologist referral - urinary symptoms hx prostate cancer 2020 021 [place] Vazquez MD ([facility]), [address], [place], [address], 14:14:48 Procedures None recorded. Surgeries None recorded. Imaging None recorded. Medication Orders ferrous sulfate 325 mg (65 mg iron) tablet,abel yed release 2020 021 [place] [facility], [address], [place], [address], 15:19:26 Vitamin C 500 mg tablet 2020 [facility], [address], [place], [address], 15:19:24 cyanocobala min (vit B-12) 1,000 mcg tablet 2020 [facility], [address], [place], [address], 15:19:25 glipizide 10 mg tablet 2020 [facility], [address], [place], [address], 15:19:25 metformin 1,000 mg tablet 2020 [facility], [address], [place], [address], 15:19:27 pioglitazon e 45 mg tablet 2020 [facility], [address], [place], [address], 15:19:27 FreeStyle Lite Strips 2020 [facility], [address], [place], [address], 15:19:25 Alcohol Prep Pads 2020 [facility], [address], [place], [address], 15:19:24 atorvastati n 20 mg tablet 2020 [facility], [address], [place], [address], 15:19:25 imipramine 10 mg tablet 2020 [facility] [address], [place], [address], 15:19:24 omeprazole 20 mg capsule,del ayed release 2020 [facility], [address], [place], [address], 15:19:26 lisinopril 40 mg tablet 2020 [facility], [address], [place], [address], 15:19:27 Adult Low Dose Aspirin 81 mg tablet,abel yed release 2020 [facility], [address], [place], [address], 15:19:25 polyethylen e glycol 3350 17 gram/dose oral powder 2020 [facility], [address], [place], [address], 13:51:07 FreeStyle Lite Strips 2020 [facility], [address], [place], [address], 13:51:07 ketorolac 30 mg/mL (1 mL) injection solution 2020 [email or web address] Not available 14:39:40 DOK 100 mg capsule 2020 [facility], [address] [place], [address], 1 13:40:44 ferrous sulfate 325 mg (65 mg iron) tablet,abel yed release 2020 021 [facility], [address] [place], [address], 14:11:02 Vitamin C 500 mg tablet 2020 021 [email or web address] 6 [facility], [address] [place], [address], 13:17:44 FreeStyle Lite Strips 2020 021 [facility], [address] [place], [address], 14:11:04 Alcohol Prep Pads 2020 021 [email or web address] 6 [facility], [address] [place], [address], 1 13:13:19 Bactrim DS 800 mg-160 mg tablet [email or web address] [place] [address] Pharmacy, [address] [place], [address], 1 15:18:27 Ciprodex 0.3 %-0.1 % ear drops,suspe nsion [email or web address] [place] [address] Pharmacy, [address] [place], [address], 1 15:04:45 pioglitazon e 45 mg tablet 2020 021 [email or web address] 6 [facility], [address] [place], [address], 1 09:55:51 atorvastati n 20 mg tablet 2020 021 [email or web address] 6 [facility], [address] [place], [address], 1 09:54:24 oxybutynin chloride ER 5 mg tablet,exte nded release 24 hr 2020 021 [email or web address] 6 [facility], [address] [place], [address], 1 09:55:30 omeprazole 20 mg capsule,del ayed release 2020 021 6 [facility], [address] [place], [address], 1 09:55:25 lisinopril 40 mg tablet 2020 021 [email or web address] 6 [facility], [address] [place], [address], 09:55:15 Patient Targets Encounter Date Encounter Id Patient Goals Patient Target Last Modified By Organization Details Last Modified Time see CM plan Not available 15:25:05 see CM plan [email or web address] Not available 13:19:11 See CM Plan [email or web address] Not available 14:09:48 See CM PLan [email or web address] Not available 08:46:20 See CM Plan [email or web address] Not available 07:55:52 Patient Instructions Encounter Date Encounter Id Patient Instructions Last Modified By Organization Details Last Modified Time 01/05/2021 [id number] Instructed on medications and follow up. Patient is aware of the clinic hours and walk in policy. Alerted patient of call service and how to use it. [email or web address] Not available 01/05/2021 15:25:11 Allergies reviewed. Treatment options and management discussed with patient. Benefit vs Risk of medicines prescribed discussed. Educational material provided today. Follow up with PCP for any worsening or new symptoms of illness (i.e fever, chills, sweats, nausea or vomiting). Report to ER for emergent concerns (i.e Respiratory distress, severe abdominal pain, high temperatures or diarrhea/vomiting for > 5 days). All questions answered. Patient verbalizes understanding and agreed with plan of care today. Encounter time: 30 min. [email or web address] Not available 01/05/2021 15:25:25 01/12/2021 [id number] Instructed on medications and follow up. Patient is aware of the clinic hours and walk in policy. Alerted patient of call service and how to use it. [email or web address] Not available 01/12/2021 13:19:18 Allergies reviewed. Treatment options and management discussed with patient. Benefit vs Risk of medicines prescribed discussed. Educational material provided today. Follow up with PCP for any worsening or new symptoms of illness (i.e fever, chills, sweats, nausea or vomiting). Report to ER for emergent concerns (i.e Respiratory distress, severe abdominal pain, high temperatures or diarrhea/vomiting for > 5 days). All questions answered. Patient verbalizes understanding and agreed with plan of care today. Encounter time: 30 min. [email or web address] Not available 01/12/2021 13:19:43 01/20/2021 [id number] Instructed on medications and follow up. Patient is aware of the clinic hours and walk in policy. Alerted patient of call service and how to use it. [email or web address] Not available 01/20/2021 14:09:53 Allergies reviewed. Treatment options and management discussed with patient. Benefit vs Risk of medicines prescribed discussed. Educational material provided today. Follow up with PCP for any worsening or new symptoms of illness (i.e fever, chills, sweats, nausea or vomiting). Report to ER for emergent concerns (i.e Respiratory distress, severe abdominal pain, high temperatures or diarrhea/vomiting for > 5 days). All questions answered. Patient verbalizes understanding and agreed with plan of care today. Encounter time: 15 min. [email or web address] Not available 01/20/2021 14:10:14 04/10/2021 [id number] mini mental stat e exam [email or web address] Not available 04/10/2021 13:51:03 Instructed on medications and follow up. Patient is aware of the clinic hours and walk in policy. Alerted patient of call service and how to use it. [email or web address] Not available 04/13/2021 08:46:24 Allergies reviewed. Treatment options and management discussed with patient. Benefit vs Risk of medicines prescribed discussed. Educational material provided today. Follow up with PCP for any worsening or new symptoms of illness (i.e fever, chills, sweats, nausea or vomiting). Report to ER for emergent concerns (i.e Respiratory distress, severe abdominal pain, high temperatures or diarrhea/vomiting for > 5 days). All questions answered. Patient verbalizes understanding and agreed with plan of care today. Encounter time: 15 min. [email or web address] Not available 04/13/2021 08:46:41 07/15/2021 [id number] eating healthy foods: care instructions [email or web address] Not available 07/15/2021 15:19:11 C? ? ?MO comer alimentos saludables: instrucciones de cuidado - [eating healthy foods: care instructions] Not available 07/15/2021 15:19:11 fall risk assessment* [email or web address] Not available 10/02/2021 09:13:33 Instructed on medications and follow up. Patient is aware of the clinic hours and walk in policy. Alerted patient of call service and how to use it. [email or web address] Not available 07/16/2021 07:55:57 Allergies reviewed. Treatment options and management discussed with patient. Benefit vs Risk of medicines prescribed discussed. Educational material provided today. Follow up with PCP for any worsening or new symptoms of illness (i.e fever, chills, sweats, nausea or vomiting). Report to ER for emergent concerns (i.e Respiratory distress, severe abdominal pain, high temperatures or diarrhea/vomiting for > 5 days). All questions answered. Patient verbalizes understanding and agreed with plan of care today. Encounter time: 15 min. [email or web address] Not available 07/16/2021 07:56:15 Reason for Referral Urologist Referral for Urina ry symptoms reports urinary symptoms- hx proatate ca. Needs to est. with urologist - rel[place]acted [place] urinary symptoms hx prostate cancer [facility]: 01[facility]05/2021 ENT Referral for Abrasion of skin of left ear fullness to left ear. Has insect removal 3 weeks ago- with abrasion . Txd with Ciprodex gtts x 1 wee Reports fullness to left ear. Has insect removal 3 weeks ago- with abrasion . Txd with Ciprodex gtts x 1 week [facility] Encounter Date: 01/12/2021 Results Created Date Observation Date Name Description Value Unit Range Abnormal Flag Note LastModifiedBy Organization Detail LastModifiedTime 01/06/20 21 01/05/2021 urina lysis , dipst ick leukocytes 2+ none negati ve abnormal Not Available [facility] [address], [place], [address], 01/05/2021 13:53:20 01/06/20 21 01/05/2021 urina lysis , dipst ick nitrite negati ve none negati ve normal Not Available [facility] [address], [place], [address], 01/05/2021 13:53:20 01/06/20 21 01/05/2021 urina lysis , dipst ick urobilinogen 0.2 eu/dL 0.2-1 normal Not Available [facility] [address], [place], [address], 01/05/2021 13:53:20 01/06/20 21 01/05/2021 urina lysis , dipst ick protein 1+ none negati ve abnormal Not Available [facility] [address], [place], [address], 01/05/2021 13:53:20 01/06/20 21 01/05/2021 urina lysis , dipst ick pH 7.0 none 4.6-8 normal Not Available [facility] [address], [place], [address], 01/05/2021 13:53:20 01/06/20 21 01/05/2021 urina lysis , dipst ick blood 1+ none negati ve abnormal Not Available [facility] [address], [place], [address], 01/05/2021 13:53:20 01/06/20 21 01/05/2021 urina lysis , dipst ick specific gravity 1.025 none 1.007- 1.03 normal Not Available [facility] [address], [place], [address], 01/05/2021 13:53:20 01/06/20 21 01/05/2021 urina lysis , dipst ick ketone negati ve none negati ve normal Not Available [facility] [address], [place], [address], 01/05/2021 13:53:20 01/06/20 21 01/05/2021 urina lysis , dipst ick bilirubin negati ve none negati ve normal Not Available [facility] [address], [place], [address], 01/05/2021 13:53:20 01/06/20 21 01/05/2021 urina lysis , dipst ick glucose negati ve none negati ve normal Not Available [facility] [address], [place], [address], 01/05/2021 13:53:20 01/06/20 21 01/05/2021 urina lysis , dipst ick appearance none clear Not Available [facility] [address], [place], [address], 01/05/2021 13:53:20 01/06/20 21 01/05/2021 urina lysis , dipst ick color yellow none colorl ess-am lloyd normal Not Available [facility] [address], [place], [address], 01/05/2021 13:53:20 01/06/20 21 01/05/2021 urina lysis , dipst ick clarity CLEAR clear normal Not Available [facility] [address], [place], [address], 01/05/2021 13:53:20 01/13/20 21 01/13/2021 CBC WITH DIFFE RENTI AL/PL ATELE T WBC 6.1 x10e3 /uL 3.4-10 .8 Not Available [facility] ([facility]) [address] [place], [address], 01/13/2021 13:37:04 01/13/20 21 01/13/2021 CBC WITH DIFFE RENTI AL/PL ATELE T RBC 4.13 x10e6 /uL 4.14-5 .80 below low normal Not Available [facility] ([facility]) [address] [place], [address], 01/13/2021 13:37:04 01/13/20 21 01/13/2021 CBC WITH DIFFE RENTI AL/PL ATELE T hemoglobin 11.4 g/dL 13.0-1 7.7 below low normal Not Available [facility] ([facility]) [address] [place], [address], 01/13/2021 13:37:04 01/13/20 21 01/13/2021 CBC WITH DIFFE RENTI AL/PL ATELE T hematocrit 34.9 % 37.5-5 1.0 below low normal Not Available [facility] ([facility]) [address] [place], [address], 01/13/2021 13:37:04 01/13/20 21 01/13/2021 CBC WITH DIFFE RENTI AL/PL ATELE T MCV 85 fL 79-97 Not Available [facility] ([facility]) [address] [facility], [place], [address], 01/13/2021 13:37:04 01/13/20 21 01/13/2021 CBC WITH DIFFE RENTI AL/PL ATELE T MCH 27.6 pg 26.6-3 3.0 Not Available [facility] ([facility]) [address] [facility], [place], [address], 01/13/2021 13:37:04 01/13/20 21 01/13/2021 CBC WITH DIFFE RENTI AL/PL ATELE T MCHC 32.7 g/dL 31.5-3 5.7 Not Available [facility] ([facility]) [address] [facility], [place], [address], 01/13/2021 13:37:04 01/13/20 21 01/13/2021 CBC WITH DIFFE RENTI AL/PL ATELE T RDW 14.4 % 11.6-1 5.4 Not Available [facility] ([facility]) [address] [place], [address], 01/13/2021 13:37:04 01/13/20 21 01/13/2021 CBC WITH DIFFE RENTI AL/PL ATELE T platelets 237 x10e3 /uL 150-45 0 Not Available [facility] ([facility]) [address] [facility], [place], [address], 01/13/2021 13:37:04 01/13/20 21 01/13/2021 CBC WITH DIFFE RENTI AL/PL ATELE T neutrophils 59 % not estab. Not Available [facility] ([facility]) [address] [place], [address], 01/13/2021 13:37:04 01/13/20 21 01/13/2021 CBC WITH DIFFE RENTI AL/PL ATELE T lymphs 30 % not estab. Not Available [facility] ([facility]) [address] [facility], [place], [address], 01/13/2021 13:37:04 01/13/20 21 01/13/2021 CBC WITH DIFFE RENTI AL/PL ATELE T monocytes 9 % not estab. Not Available [facility] ([facility]) [address] [facility], [place], [address], 01/13/2021 13:37:04 01/13/20 21 01/13/2021 CBC WITH DIFFE RENTI AL/PL ATELE T eos 1 % not estab. Not Available [facility] ([facility]) [address] [place], [address], 01/13/2021 13:37:04 01/13/20 21 01/13/2021 CBC WITH DIFFE RENTI AL/PL ATELE T basos 1 % not estab. Not Available [facility] ([facility]) [address] [facility], [place], [address], 01/13/2021 13:37:04 01/13/20 21 01/13/2021 CBC WITH DIFFE RENTI AL/PL ATELE T neutrophils (absolute) 3.6 x10e3 /uL 1.4-7. 0 Not Available [facility] ([facility]) [address] [place], [address], 01/13/2021 13:37:04 01/13/2001/13/2021 CBC WITH DIFFE RENTI AL/PL ATELE T lymphs (absolute) 1.8 x10e3 /uL 0.7-3. 1 Not Available [facility] ([facility]) [address] [place], [address], 01/13/2021 13:37:04 01/13/20 21 01/13/2021 CBC WITH DIFFE RENTI AL/PL ATELE T monocytes(ab solute) 0.6 x10e3 /uL 0.1-0. 9 Not Available [facility] ([facility]) [address] [place], [address], 01/13/2021 13:37:04 01/13/20 21 01/13/2021 CBC WITH DIFFE RENTI AL/PL ATELE T eos (absolute) 0.1 x10e3 /uL 0.0-0. 4 Not Available [facility] ([facility]) [address] [place], [address], 01/13/2021 13:37:04 01/13/20 21 01/13/2021 CBC WITH DIFFE RENTI AL/PL ATELE T baso (absolute) 0.0 x10e3 /uL 0.0-0. 2 Not Available [facility] ([facility]) [address] [place], [address], 01/13/2021 13:37:04 01/13/20 21 01/13/2021 CBC WITH DIFFE RENTI AL/PL ATELE T immature granulocytes 0 % not estab. Not Available [facility] ([facility]) [address] [place], [address], 01/13/2021 13:37:04 01/13/20 21 01/13/2021 CBC WITH DIFFE RENTI AL/PL ATELE T immature grans (abs) 0.0 x10e3 /uL 0.0-0. 1 Not Available [facility] ([facility]) [address] [place], [address], 01/13/2021 13:37:04 01/13/20 21 01/13/2021 COMP. METAB OLIC PANEL (14) glucose 184 mg/dL 65-99 above high normal Not Available [facility] ([facility]) [address] [place], [address], 01/13/2021 13:37:05 01/13/20 21 01/13/2021 COMP. METAB OLIC PANEL (14) BUN 20 mg/dL 8-27 Not Available [facility] ([facility]) [address] [place], [address], 01/13/2021 13:37:05 01/13/20 21 01/13/2021 COMP. METAB OLIC PANEL (14) creatinine 1.25 mg/dL 0.76-1 .27 Not Available [facility] ([facility]) [address] [facility], [place], [address], 01/13/2021 13:37:05 01/13/20 21 01/13/2021 COMP. METAB OLIC PANEL (14) eGFR if nonafricn AM 53 mL/mi n/1.7 3 >59 below low normal Not Available [facility] ([facility]) [address] [facility], [place], [address], 01/13/2021 13:37:05 01/13/20 21 01/13/2021 COMP. METAB OLIC PANEL (14) eGFR if africn AM 61 mL/mi n/1.7 3 >59 Lab sant[facility] curre ntly repor ts eGFR in compl iance with the curre nt recom menda tions of the [employer] ation . [facility] will updat e repor ting as new guide lines are publi shed from the NKF-A SN Task force . Not Available [facility] ([facility]) [address] [facility], [place], [address], 01/13/2021 13:37:05 01/13/20 21 01/13/2021 COMP. METAB OLIC PANEL (14) BUN/creatini ne ratio 16 10-24 Not Available [facility] ([facility]) [address] [facility], [place], [address], 01/13/2021 13:37:05 01/13/20 21 01/13/2021 COMP. METAB OLIC PANEL (14) sodium 139 mmol/ L 134-14 4 Not Available [facility] ([facility]) [address] [facility], [place], [address], 01/13/2021 13:37:05 01/13/20 21 01/13/2021 COMP. METAB OLIC PANEL (14) potassium 4.9 mmol/ L 3.5-5. 2 Not Available [facility] ([facility]) [address] [facility] [place], [address], 01/13/2021 13:37:05 01/13/20 21 01/13/2021 COMP. METAB OLIC PANEL (14) chloride 102 mmol/ L 96-106 Not Available [facility] ([facility]) [address] [facility], [place], [address], 01/13/2021 13:37:05 01/13/20 21 01/13/2021 COMP. METAB OLIC PANEL (14) carbon dioxide, total 24 mmol/ L 20- Not Available [facility] ([facility]) [address] [facility], [place], [address], 01/13/2021 13:37:05 01/13/20 21 01/13/2021 COMP. METAB OLIC PANEL (14) calcium 9.2 mg/dL 8.6-10 .2 Not Available [facility] ([facility]) [address] [facility] [place], [address], 01/13/2021 13:37:05 01/13/20 21 01/13/2021 COMP. METAB OLIC PANEL (14) protein, total 6.2 g/dL 6.0-8. 5 Not Available [facility] ([facility]) [address] [facility] [place], [address], 01/13/2021 13:37:05 01/13/20 21 01/13/2021 COMP. METAB OLIC PANEL (14) albumin 4.2 g/dL 3.6-4. 6 Not Available [facility] ([facility]) [address] [facility], [place], [address], 01/13/2021 13:37:05 01/13/20 21 01/13/2021 COMP. METAB OLIC PANEL (14) globulin, total 2.0 g/dL 1.5-4. 5 Not Available [facility] ([facility]) [address] [place], [address], 01/13/2021 13:37:05 01/13/20 21 01/13/2021 COMP. METAB OLIC PANEL (14) A/G ratio 2.1 1.2-2. 2 Not Available [facility] ([facility]) [address] [place], [address], 01/13/2021 13:37:05 01/13/20 21 01/13/2021 COMP. METAB OLIC PANEL (14) bilirubin, total 0.3 mg/dL 0.0-1. 2 Not Available [facility] ([facility]) [address] [place], [address], 01/13/2021 13:37:05 01/13/20 21 01/13/2021 COMP. METAB OLIC PANEL (14) alkaline phosphatase 97 IU/L 48-121 Not Available [facility] ([facility]) [address] [place], [address], 01/13/2021 13:37:05 01/13/20 21 01/13/2021 COMP. METAB OLIC PANEL (14) AST (SGOT) 17 IU/L 0-40 Not Available [facility] ([facility]) [address] [place], [address], 01/13/2021 13:37:05 01/13/20 21 01/13/2021 COMP. METAB OLIC PANEL (14) ALT (SGPT) 11 IU/L 0-44 Not Available [facility] ([facility]) [address] [place], [address], 01/13/2021 13:37:05 01/13/20 21 01/13/2021 LIPID PANEL cholesterol, total 143 mg/dL 100-19 9 Not Available [facility] ([facility]) [address] [facility], [place], [address], 01/13/2021 13:37:06 01/13/20 21 01/13/2021 LIPID PANEL triglyceride s 153 mg/dL 0-149 above high normal Not Available [facility] ([facility]) [address] [facility], [place], [address], 01/13/2021 13:37:06 01/13/20 21 01/13/2021 LIPID PANEL HDL cholesterol 40 mg/dL >39 Not Available [facility] ([facility]) [address] [facility], [place], [address], 01/13/2021 13:37:06 01/13/20 21 01/13/2021 LIPID PANEL VLDL cholesterol ishmael 27 mg/dL 5-40 Not Available [facility] ([facility]) [address] [place], [address], 01/13/2021 13:37:06 01/13/20 21 01/13/2021 LIPID PANEL LDL chol calc ([facility]) 76 mg/dL 0-99 Not Available [facility] ([facility]) [address] [place], [address], 01/13/2021 13:37:06 01/13/20 21 01/13/2021 ALBUM IN/CR EAT RATIO , RANDO M UR creatinine, urine 155.9 mg/dL not estab. Not Available [facility] ([facility]) [address] [place], [address], 01/13/2021 13:37:07 01/13/20 21 01/13/2021 ALBUM IN/CR EAT RATIO , RANDO M UR albumin, urine 25.7 ug/mL not estab. Not Available [facility] ([facility]) [address] [place], [address], 01/13/2021 13:37:07 01/13/20 21 01/13/2021 ALBUM IN/CR EAT RATIO , GURINDER García UR alb/creat ratio 16 mg/g_ creat 0-29 María l: 0 - 29 Moder ately incre ased: 30 - 300 Sever royal incre ased: >300 Not Available [facility] ([facility]) [address] [facility], [place], [address], 01/13/2021 13:37:07 01/13/20 21 01/13/2021 HEMOG LOBIN A1C hemoglobin A1C 6.8 % 4.8-5. 6 above high normal . Predi abete s: 5.7 - 6.4 Diabe chel: >6.4 Glyce ad contr ol for adult s with diabe chel: <7.0 Not Available [facility] ([facility]) [address] [facility], [place], [address], 01/13/2021 13:37:08 01/13/20 21 01/12/2021 urina lysis , dipst ick leukocytes trace none negati ve abnormal Not Available [facility] [address], [place], [address], 01/12/2021 10:14:17 01/13/20 21 01/12/2021 urina lysis , dipst ick nitrite negati ve none negati ve normal Not Available [facility] [address], [place], [address], 01/12/2021 10:14:17 01/13/20 21 01/12/2021 urina lysis , dipst ick urobilinogen 0.2 eu/dL 0.2-1 normal Not Available [facility] [address], [place], [address], 01/12/2021 10:14:17 01/13/20 21 01/12/2021 urina lysis , dipst ick protein negati ve none negati ve normal Not Available [facility] [address], [place], [address], 01/12/2021 10:14:17 01/13/20 21 01/12/2021 urina lysis , dipst ick pH 5.5 none 4.6-8 normal Not Available [facility] [address], [place], [address], 01/12/2021 10:14:17 01/13/20 21 01/12/2021 urina lysis , dipst ick blood negati ve none negati ve normal Not Available [facility] [address], [place], [address], 01/12/2021 10:14:17 01/13/20 21 01/12/2021 urina lysis , dipst ick specific gravity 1.025 none 1.007- 1.03 normal Not Available [facility] [address], [place], [address], 01/12/2021 10:14:17 01/13/20 21 01/12/2021 urina lysis , dipst ick ketone negati ve none negati ve normal Not Available [facility] [address], [place], [address], 01/12/2021 10:14:17 01/13/20 21 01/12/2021 urina lysis , dipst ick bilirubin negati ve none negati ve normal Not Available [facility] [address], [place], [address], 01/12/2021 10:14:17 01/13/20 21 01/12/2021 urina lysis , dipst ick glucose negati ve none negati ve normal Not Available [facility] [address], [place], [address], 01/12/2021 10:14:17 01/13/20 21 01/12/2021 urina lysis , dipst ick appearance none clear Not Available [facility] [address], [place], [address], 01/12/2021 10:14:17 01/13/20 21 01/12/2021 urina lysis , dipst ick color yellow none colorl ess-am lloyd normal Not Available [facility] [address], [place], [address], 01/12/2021 10:14:17 01/13/20 21 01/12/2021 urina lysis , dipst ick clarity CLEAR clear normal Not Available [facility] [address], [place], [address], 01/12/2021 10:14:17 07/15/20 21 07/16/2021 CBC WITH DIFFE RENTI AL/PL ATELE T WBC 5.4 x10e3 /uL 3.4-10 .8 Not Available [facility] ([facility]) [address] [place], [address], 07/16/2021 13:36:40 07/15/20 21 07/16/2021 CBC WITH DIFFE RENTI AL/PL ATELE T RBC 4.44 x10e6 /uL 4.14-5 .80 Not Available [facility] ([facility]) [address] [place], [address], 07/16/2021 13:36:40 07/15/20 21 07/16/2021 CBC WITH DIFFE RENTI AL/PL ATELE T hemoglobin 11.8 g/dL 13.0-1 7.7 below low normal Not Available [facility] ([facility]) [address] [place], [address], 07/16/2021 13:36:40 07/15/20 21 07/16/2021 CBC WITH DIFFE RENTI AL/PL ATELE T hematocrit 36.8 % 37.5-5 1.0 below low normal Not Available [facility] ([facility]) [address] [place], [address], 07/16/2021 13:36:40 07/15/20 21 07/16/2021 CBC WITH DIFFE RENTI AL/PL ATELE T MCV 83 fL 79-97 Not Available [facility] ([facility]) [address] [facility], [place], [address], 07/16/2021 13:36:40 07/15/20 21 07/16/2021 CBC WITH DIFFE RENTI AL/PL ATELE T MCH 26.6 pg 26.6-3 3.0 Not Available [facility] ([facility]) [address] [facility], [place], [address], 07/16/2021 13:36:40 07/15/20 21 07/16/2021 CBC WITH DIFFE RENTI AL/PL ATELE T MCHC 32.1 g/dL 31.5-3 5.7 Not Available [facility] ([facility]) [address] [facility], [place], [address], 07/16/2021 13:36:40 07/15/20 21 07/16/2021 CBC WITH DIFFE RENTI AL/PL ATELE T RDW 15.4 % 11.6-1 5.4 Not Available [facility] ([facility]) [address] [facility], [place], [address], 07/16/2021 13:36:40 07/15/20 21 07/16/2021 CBC WITH DIFFE RENTI AL/PL ATELE T platelets 224 x10e3 /uL 150-45 0 Not Available [facility] ([facility]) [address] [facility], [place], [address], 07/16/2021 13:36:40 07/15/20 21 07/16/2021 CBC WITH DIFFE RENTI AL/PL ATELE T neutrophils 60 % not estab. Not Available [facility] ([facility]) [address] [facility], [place], [address], 07/16/2021 13:36:40 07/15/20 21 07/16/2021 CBC WITH DIFFE RENTI AL/PL ATELE T lymphs 28 % not estab. Not Available [facility] ([facility]) [address] [facility], [place], [address], 07/16/2021 13:36:40 07/15/20 21 07/16/2021 CBC WITH DIFFE RENTI AL/PL ATELE T monocytes 11 % not estab. Not Available [facility] ([facility]) [address] [facility], [place], [address], 07/16/2021 13:36:40 07/15/20 21 07/16/2021 CBC WITH DIFFE RENTI AL/PL ATELE T eos 1 % not estab. Not Available [facility] ([facility]) [address] [facility], [place], [address], 07/16/2021 13:36:40 07/15/20 21 07/16/2021 CBC WITH DIFFE RENTI AL/PL ATELE T basos 0 % not estab. Not Available [facility] ([facility]) [address] [facility], [place], [address], 07/16/2021 13:36:40 07/15/20 21 07/16/2021 CBC WITH DIFFE RENTI AL/PL ATELE T neutrophils (absolute) 3.1 x10e3 /uL 1.4-7. 0 Not Available [facility] ([facility]) [address] [facility], [place], [address], 07/16/2021 13:36:40 07/15/20 21 07/16/2021 CBC WITH DIFFE RENTI AL/PL ATELE T lymphs (absolute) 1.5 x10e3 /uL 0.7-3. 1 Not Available [facility] ([facility]) [address] [facility], [place], [address], 07/16/2021 13:36:40 07/15/20 21 07/16/2021 CBC WITH DIFFE RENTI AL/PL ATELE T monocytes(ab solute) 0.6 x10e3 /uL 0.1-0. 9 Not Available [facility] ([facility]) [address] [facility], [place], [address], 07/16/2021 13:36:40 07/15/20 21 07/16/2021 CBC WITH DIFFE RENTI AL/PL ATELE T eos (absolute) 0.1 x10e3 /uL 0.0-0. 4 Not Available [facility] ([facility]) [address] [facility], [place], [address], 07/16/2021 13:36:40 07/15/20 21 07/16/2021 CBC WITH DIFFE RENTI AL/PL ATELE T baso (absolute) 0.0 x10e3 /uL 0.0-0. 2 Not Available [facility] ([facility]) [address] [facility], [place], [address], 07/16/2021 13:36:40 07/15/20 21 07/16/2021 CBC WITH DIFFE RENTI AL/PL ATELE T immature granulocytes 0 % not estab. Not Available [facility] ([facility]) [address] [place], [address], 07/16/2021 13:36:40 07/15/20 21 07/16/2021 CBC WITH DIFFE RENTI AL/PL ATELE T immature grans (abs) 0.0 x10e3 /uL 0.0-0. 1 Not Available [facility] ([facility]) [address] [place], [address], 07/16/2021 13:36:40 07/15/20 21 07/16/2021 COMP. METAB OLIC PANEL (14) glucose 133 mg/dL 65-99 above high normal Not Available [facility] ([facility]) [address] [place], [address], 07/16/2021 13:36:41 07/15/20 21 07/16/2021 COMP. METAB OLIC PANEL (14) BUN 15 mg/dL 8-27 Not Available [facility] ([facility]) [address] [facility], [place], [address], 07/16/2021 13:36:41 07/15/20 21 07/16/2021 COMP. METAB OLIC PANEL (14) creatinine 1.08 mg/dL 0.76-1 .27 Not Available [facility] ([facility]) [address] [facility], [place], [address], 07/16/2021 13:36:41 07/15/20 21 07/16/2021 COMP. METAB OLIC PANEL (14) eGFR if nonafricn AM 63 mL/mi n/1.7 3 >59 Not Available [facility] ([facility]) [address] [facility], [place], [address], 07/16/2021 13:36:41 07/15/20 21 07/16/2021 COMP. METAB OLIC PANEL (14) eGFR if africn AM 73 mL/mi n/1.7 3 >59 In accor dance with recom menda tiroxanne from the NKF-A SN Task force , Magaly smith is in the proce ss of updat ing its eGFR calcu latio n to the 2020 CKD-E PI creat inine equat ion that estim ates kidne y funct ion witho ut a race varia ble. Not Available [facility] ([facility]) [address] [facility], [place], [address], 07/16/2021 13:36:41 07/15/20 21 07/16/2021 COMP. METAB OLIC PANEL (14) BUN/creatini ne ratio 14 10-24 Not Available [facility] ([facility]) [address] [facility], [place], [address], 07/16/2021 13:36:41 07/15/20 21 07/16/2021 COMP. METAB OLIC PANEL (14) sodium 145 mmol/ L 134-14 4 above high normal Not Available [facility] ([facility]) [address] [facility] [place], [address], 07/16/2021 13:36:41 07/15/20 21 07/16/2021 COMP. METAB OLIC PANEL (14) potassium 4.2 mmol/ L 3.5-5. 2 Not Available [facility] ([facility]) [address] [facility] [place], [address], 07/16/2021 13:36:41 07/15/20 21 07/16/2021 COMP. METAB OLIC PANEL (14) chloride 104 mmol/ L 96-106 Not Available [facility] ([facility]) [address] [facility], [place], [address], 07/16/2021 13:36:41 07/15/20 21 07/16/2021 COMP. METAB OLIC PANEL (14) carbon dioxide, total 24 mmol/ L - Not Available [facility] ([facility]) [address] [place], [address], 07/16/2021 13:36:41 07/15/20 21 07/16/2021 COMP. METAB OLIC PANEL (14) calcium 8.8 mg/dL 8.6-10 .2 Not Available [facility] ([facility]) [address] [place], [address], 07/16/2021 13:36:41 07/15/20 21 07/16/2021 COMP. METAB OLIC PANEL (14) protein, total 6.4 g/dL 6.0-8. 5 Not Available [facility] ([facility]) [address] [place], [address], 07/16/2021 13:36:41 07/15/20 21 07/16/2021 COMP. METAB OLIC PANEL (14) albumin 4.2 g/dL 3.6-4. 6 Not Available [facility] ([facility]) [address] [place], [address], 07/16/2021 13:36:41 07/15/20 21 07/16/2021 COMP. METAB OLIC PANEL (14) globulin, total 2.2 g/dL 1.5-4. 5 Not Available [facility] ([facility]) [address] [place], [address], 07/16/2021 13:36:41 07/15/20 21 07/16/2021 COMP. METAB OLIC PANEL (14) A/G ratio 1.9 1.2-2. 2 Not Available [facility] ([facility]) [address] [place], [address], 07/16/2021 13:36:41 07/15/20 21 07/16/2021 COMP. METAB OLIC PANEL (14) bilirubin, total 0.5 mg/dL 0.0-1. 2 Not Available [facility] ([facility]) [address] [place], [address], 07/16/2021 13:36:41 07/15/20 21 07/16/2021 COMP. METAB OLIC PANEL (14) alkaline phosphatase 100 IU/L 44-121 Ple ase note refer ence inter loli chinchilla e Not Available [facility] ([facility]) [address] [facility] [place], [address], 07/16/2021 13:36:41 07/15/20 21 07/16/2021 COMP. METAB OLIC PANEL (14) AST (SGOT) 15 IU/L 0-40 Not Available [facility] ([facility]) [address] [facility] [place], [address], 07/16/2021 13:36:41 07/15/20 21 07/16/2021 COMP. METAB OLIC PANEL (14) ALT (SGPT) 12 IU/L 0-44 Not Available [facility] ([facility]) [address] [place], [address], 07/16/2021 13:36:41 07/15/20 21 07/16/2021 LIPID PANEL cholesterol, total 198 mg/dL 100-19 9 Not Available [facility] ([facility]) [address] [place], [address], 07/16/2021 13:36:42 07/15/20 21 07/16/2021 LIPID PANEL triglyceride s 219 mg/dL 0-149 above high normal Not Available [facility] ([facility]) [address] [place], [address], 07/16/2021 13:36:42 07/15/20 21 07/16/2021 LIPID PANEL HDL cholesterol 50 mg/dL >39 Not Available [facility] ([facility]) [address] [place], [address], 07/16/2021 13:36:42 07/15/20 21 07/16/2021 LIPID PANEL VLDL cholesterol ishmael 38 mg/dL 5-40 Not Available [facility] ([facility]) [address] [place], [address], 07/16/2021 13:36:42 07/15/20 21 07/16/2021 LIPID PANEL LDL chol calc ([facility]) 110 mg/dL 0-99 above high normal Not Available [facility] ([facility]) [address] [place], [address], 07/16/2021 13:36:42 07/15/20 21 07/16/2021 IRON AND TIBC iron bind.cap.(TI BC) 256 ug/dL 250-45 0 Not Available [facility] ([facility]) [address] [place], [address], 07/16/2021 13:36:42 07/15/20 21 07/16/2021 IRON AND TIBC UIBC 204 ug/dL 111-34 3 Not Available [facility] ([facility]) [address] [place], [address], 07/16/2021 13:36:42 07/15/20 21 07/16/2021 IRON AND TIBC iron 52 ug/dL 38-169 Not Available [facility] ([facility]) [address] [place], [address], 07/16/2021 13:36:42 07/15/20 21 07/16/2021 IRON AND TIBC iron saturation 20 % 15-55 Not Available [facility] ([facility]) [address] [place], [address], 07/16/2021 13:36:42 07/15/20 21 07/16/2021 ALBUM IN/CR EAT RATIO , RANDO M UR creatinine, urine 158.2 mg/dL not estab. Not Available [facility] ([facility]) [address] [place], [address], 07/16/2021 13:36:43 07/15/20 21 07/16/2021 ALBUM IN/CR EAT RATIO , RANDO M UR albumin, urine 36.1 ug/mL not estab. Not Available [facility] ([facility]) [address] [place], [address], 07/16/2021 13:36:43 07/15/20 21 07/16/2021 ALBUM IN/CR EAT RATIO , RANDO M UR alb/creat ratio 23 mg/g_ creat 0-29 María l: 0 - 29 Moder ately incre ased: 30 - 300 Sever royal incre ased: >300 Not Available [facility] ([facility]) [address] [place], [address], 07/16/2021 13:36:43 07/15/20 21 07/16/2021 HEMOG LOBIN A1C hemoglobin A1C 6.9 % 4.8-5. 6 above high normal . Predi abete s: 5.7 - 6.4 Diabe chel: >6.4 Glyce ad contr ol for adult s with diabe chel: <7.0 Not Available [facility] ([facility]) [address] [facility], [place], [address], 07/16/2021 13:36:43 Result Notes None recorded. Problems Name Problem SNOMED Code Status Onset Date Resolution Date Notes Provider Name and Address Organization Details Recorded Time Essential hypertensi on 20241472 Active 2020 Li Collins [facility] 13:49:58 Diabetes mellitus 12694585 Active 2020 type2 Carmen Rick NP [address] [place], [place], [address] [place] [address] , [facility] 13:05:29 Hyperlipid emia 87941406 Active 2020 Li Collins [facility] 13:50:22 Primary malignant neoplasm of prostate 00571464 Active 2020 Lijeff Collins [facility] 13:50:55 Polyp of colon 55386651 Active 2020 Carmen Rick NP [address] [place], [place], [address] [place] [address] , [facility] 13:04:06 Anemia of chronic disease 687341419 Active 2020 Carmen Rick NP [address] [place], [place], [address] [place] [address] , [facility] 13:04:48 Neurogenic urinary bladder 702001925 Active 2020 Carmen Rick NP [address] [place], [place], [address] [place] [address] , [facility] 13:05:03 Gastroesop hageal reflux disease 084238258 Active 2020 Carmen Rick NP [address] [place], [place], [address] [place] [address] , [facility] 1 13:05:34 History of Helicobact er pylori infection 1058239901442 9108 Active 2020 Carmen Rick NP [address] [place], [place], [address] [place] [address] , [facility] 1 13:06:09 Sensorineu ral hearing loss of bilateral ears 126378457 Active 2020 Carmen Rick NP [address] [place], [place], [address] [place] [address] , [facility] 1 13:06:24 Pain of left shoulder joint 7601979189542 9109 Active 2020 Carmen Rick NP [address] [place] [address], [address] [place] [address] , [facility] 1 13:14:51 Bilateral knee pain Active 2020 Carmen Rick NP [address] [place] [address], [address] [place] [address] , [facility] 1 08:45:58 Memory impairment 921161499 Active 2020 Carmen Rick NP [address] [place] [address], [address] [place] [address] , [facility] 08:46:00 Hematochez ia 154605651 Active 2020 Carmen Rick NP [address] [place] [address], [address] [place] [address] , [facility]. 1 08:46:01 Chronic constipati on 378072671 Active 2020 Carmen Rick NP [address] [place] [address], [address] [place] [address] , [facility]. 1 08:46:06 Hemoglobin below reference range 392802455 Active 2020 Carmen Rick NP [address] [place] [address], [address] [place] [address] , [facility] 08:46:07 Type 2 diabetes mellitus 87287722 Active 2020 Carmen Rick NP [address] [place] [address], [address] [place] [address] 07:54:27 Urinary symptoms 037612384 Active 2020 Carmen Rick NP [address] [place] [address], [address] [place] [address] , [facility] 07:54:29 Obesity 816952255 Active 2020 Carmen Rick NP [address] [place] [address], [address] [place] [address] 07:54:31 Dyslipidem ia 713999997 Active 2020 Carmen Rick NP [address] [place] [address], [address] [place] [address] 07:54:38 Gastroesop hageal reflux disease without esophagiti s 811372833 Active 2020 Carmen Rick NP [address] [place] [address], [address] [place] [address] 07:54:55 Tobacco dependence in remission 534581784 Active 2020 Carmen Rick NP [address] [place] [address], [address] [place] [address] 07:54:57 Vaccine declined by patient 986028699520 Active 2020 Carmen Rick NP [address] [place], [place], [address] [place] [address] 07:55:21 Advance directive discussed with patient 471870977 Active 2020 Carmen Rick NP [address] [place], [place], [address] [place] [address] , [facility] 07:55:23 At increased risk for falls 328121635 Active 2020 Carmen Rick NP [address] [place], [address] [place] [address] , [facility] 07:55:24 Secondary immune deficiency disorder 78943809 Active 2020 Carmen Rick NP [address] [place], [place], [address] [place] [address] 07:56:40 Problem Notes None recorded. Procedures Surgical History Date Name Laterality Status Provider Name and Address Organization Details Recorded Time 8 prostatectomy completed [facility] 01/05/2021 13:52:29 Imaging Results None recorded. Procedure Notes None recorded. Medical Equipment None Reported. Allergies Allergen ID Allergen Name Allergen Category Reaction Reaction Severity Criticality Documentation Date Start Date Code Code System Note Provider Name and Address Organization Details Recorded Time 66228 oxycodone medicatio n Not available Not available Not available 01/05/2021 7804 [facility] 13:46:10 Medications Name Sig Start Date Stop Date Status Note LastModified by Organization Details LastModified Time vitamin b-12 1000mcg tablet TOME BEATRIZ TABLETA TODOS LOS D active taking 04/10/21 Not Available Not Available Not Available atorvasta tin 20 mg tablet TAKE 1 TABLET BY MOUTH ONCE DAILY 2020 active Not Available Not Available Not Avai lable Vitamin C 500 mg tablet TAKE 1 TABLET BY MOUTH EVERY DAY 2020 active Not Available Not Available Not Avai lable FreeStyle Lancets 28 gauge ARIANA VECES AL D A active Not Available Not Available No t Available glipizide 10 mg tablet TOME BEATRIZ TABLETA DOS VECES AL DOM 2021 active Not Available Not Available Not Avai lable cyanocoba jose (vit B-12) 1,000 mcg tablet Take 1 tablet every day by oral route for 30 days. 2020 active Not Available Not Available Not Avai lable pioglitaz one 45 mg tablet TOME BEATRIZ TABLETA TODOS LOS JAMES 2020 active Not Available Not Available Not Avai lable metronida zole 500 mg tablet 07/15 completed Not Available Not Available Not Available ciproflox acin 500 mg tablet 07/15 completed Not Available Not Available Not Available sulfameth oxazole 800 mg-trimet hoprim 160 mg tablet Take 1 tablet every 12 hours by oral route for 7 days. 07/15 completed taking 01/12/21 Not Available Not Available Not Available ketorolac 30 mg/mL (1 mL) injection solution Inject 1 mL every 6 hours by intramus cular route. 2020 active administ ered 1mL IM to left deltoid with no signs/sy mptoms adverse reaction 15 min post inj Not Available Not Available Not Available DOK 100 mg capsule TAKE 1 CAPSULE BY MOUTH TWICE DAILY NEEDED. STOP IF DIARRHEA 04/10 completed not taking 04/10/21 Not Available Not Available Not Available amlodipin e 10 mg tablet TAKE 1 TABLET BY MOUTH ONCE DAILY active Not Available Not Available No t Available cephalexi n 500 mg capsule active Not Available Not Available Not Available metformin 1,000 mg tablet Take 1 tablet every day by oral route for 30 days. active Not Available Not Available No t Available ibuprofen 400 mg tablet 07/15 completed Not Available Not Available Not Available oxybutyni n chloride ER 5 mg tablet,ex tended release 24 hr TOME BEATRIZ TABLETA TODOS LOS D AL ACOSTARS E active taking 04/10/21 Not Available Not Available Not Available omeprazol e 20 mg capsule,d elayed release TOME BEATRIZ CAPSULA TODOS LOS JAMES ANTES DE BEATRIZ COMIDA CUANDO SEA NECESARI O 2020 active Not Available Not Available Not Avai lable ergocalci ferol (vitamin D2) 1,250 mcg (50,000 unit) capsule TAKE 1 CAPSULE BY MOUTH ONCE A WEEK por 12 WEEKS active taking 04/10/21 Not Available Not Available Not Available polyethyl fito glycol 3350 17 gram/dose oral powder Take 17 g twice a day by oral route for 30 days. 2020 active Not Available Not Available Not Avai lable imipramin e 10 mg tablet TOME BEATRIZ TABLETA TODOS LOS JAMES AL ACOSTARS E active Not Available Not Available No t Available ferrous sulfate 325 mg (65 mg iron) tablet,de layed release Take 1 tablet every day by oral route for 60 days. 2020 active Not Available Not Available Not Avai lable lisinopri l 40 mg tablet TOME BEATRIZ TABLETA AL DOM 2021 active Not Available Not Available Not Avai lable Adult Low Dose Aspirin 81 mg tablet,de layed release Take 1 tablet every day by oral route for 90 days. 2020 active Not Available Not Available Not Avai lable ciproflox acin 0.3 %-dexamet hasone 0.1 % ear drops,bryant pension INSTILL 4 DROPS INTO AFFECTED EAR(S) BY OTIC ROUTE 2 TIMES PER DAY x 7days FOR 7 DAYS 07/15 completed Not Available Not Available Not Available Alcohol Prep Pads TEST BLOOD SUGAR THREE TIMES DAILY active Not Available Not Available No t Available nitrofura ntoin monohydra te/macroc rystals 100 mg capsule active Not Available Not Available Not Available FreeStyle Lite Meter kit USE DIRECTED active Not Available Not Available No t Available FreeStyle Lite Strips TEST BLOOD SUGAR THREE TIMES DAILY E11.9 2020 active Not Available Not Available Not Avai lable FeroSul 325 mg (65 mg iron) tablet TAKE 1 TABLET BY MOUTH EVERY DAY 01/12 completed not taking Not Available Not Available Not Available Myrbetriq 50 mg tablet,ex tended release active Not Available Not Available Not Available TRUEplus Lancets 33 gauge TEST BLOOD SUGAR THREE TIMES DAILY active Not Available Not Available No t Available Vitals Date Recorded Body height Body mass index (BMI) Body weight Respiratory rate Body temperature Oxygen saturation Oxygen saturation in Arterial blood by Pulse oximetry Heart rate Systolic blood pressure Diastolic blood pressure Provider Name and Address Organization Details Last Updated DateTime 1 156.21 cm 32 kg/m2 28695.8 9 g 18 /min 98.3 [degF] 99 % 99 % 77 /min 122 mm[Hg] 78 mm[Hg] Kerwin Anaya [place] - [facility]. 1 13:12:46 Date Recorded Body height Body mass index (BMI) Body weight Heart rate Respiratory rate Body temperature Oxygen saturation Oxygen saturation in Arterial blood by Pulse oximetry Systolic blood pressure Diastolic blood pressure Provider Name and Address Organization Details Last Updated DateTime 1 156.21 cm 32 kg/m2 54478.5 9 g 96 /min 18 /min 98.1 [degF] 97 % 97 % 124 mm[Hg] 81 mm[Hg] Mylene Snell [facility] 1 14:57:50 Date Recorded Body weight Body mass index (BMI) Body height Body temperature Oxygen saturation Oxygen saturation in Arterial blood by Pulse oximetry Heart rate Respiratory rate Systolic blood pressure Diastolic blood pressure Provider Name and Address Organization Details Last Updated DateTime 1 26315.6 4 g 32.3 kg/m2 156.21 cm 97.6 [degF] 98 % 98 % 97 /min 18 /min 129 mm[Hg] 68 mm[Hg] Li Collins [facility] 1 13:45:40 Date Recorded Body height Body mass index (BMI) Body weight Heart rate Respiratory rate Body temperature Oxygen saturation Oxygen saturation in Arterial blood by Pulse oximetry Systolic blood pressure Diastolic blood pressure Provider Name and Address Organization Details Last Updated DateTime 1 156.21 cm 31.8 kg/m2 82312.3 g 98 /min 17 /min 98 [degF] 97 % 97 % 126 mm[Hg] 76 mm[Hg] Kerwin Anaya [facility] 1 09:52:13 Date Recorded Body height Body mass index (BMI) Body weight Provider Name and Address Organization Details Last Updated DateTime 01/20/2021 156.21 cm 31.6 kg/m2 26409.7 g Liyah Lockhart [facility] 01/20/2021 13:41:21 Social History Question Answer Notes LastModified by Organizat ion Details LastModified Time Tobacco Smoking Status Never Smoker Li Collins [facility] 01/05/2021 13:51:55 What Is Your Occupation? N/A [email or web address] Information not available 01/05/2021 Medical Terms Are Complicated, And Many People Find The Words Difficult To Understand. Do You Ever Get Help From Others In Filling Out Forms, Reading Prescription Labels, Insurance Forms, Or Health Education Sheets? Often [email or web address] Information no t available 01/12/2021 Are You Worried About Losing Your Housing? No Information not available 01/12/2021 In The Past Year Have You Or Any Of Your Family Members Been Unable To Get PARTNER MANAGER When It Was Really Needed? No [email or web address] Information n ot available 01/12/2021 In The Past Year Have You Or Any Of Your Family Members Been Unable To Get CLOTHING When It Was Really Needed? No [email or web address] Information n ot available 01/12/2021 In The Past Year Have You Or Any Of Your Family Members Been Unable To Get FOOD When It Was Really Needed? No [email or web address] Information not available 01/12/2021 In The Past Year Have You Or Any Of Your Family Members Been Unable To Get MEDICINE Or HEALTH CARE When It Was Really Needed? No [email or web address] Information not available 01/12/2021 In The Past Year Have You Or Any Of Your Family Members Been Unable To Get PHONE When It Was Really Needed? No [email or web address] Information not available 01/12/2021 In The Past Year Have You Or Any Of Your Family Members Been Unable To Get UTILITIES When It Was Really Needed? No [email or web address] Information n ot available 01/12/2021 Has Lack Of Transportation Kept You From Medical Appointments, Meetings, Work, Or From Getting Things Needed For Daily Living? No [email or web address] Information not available 01/12/2021 In The Past Year Have You Or Any Of Your Family Members Been Unable To Get OTHER NECESSITIES When It Was Really Needed? No Information not available 01/12/2021 How Often Do You See Or Talk To People That You Care About And Feel Close To? 3 To 5 Times A Week Information not available 01/12/2021 How Stressed Are You? Somewhat [email or web address] Information not available 01/12/2021 In The Past Year, Have You Spent More Than 2 Nights In A Row In A Care Home, Fci, Care Home Center, Or Juvenile Correctional Facility? No [email or web address] Information not available 01/12/2021 Are You A Refugee? No [email or web address] Inform ation not available 01/12/2021 Do You Feel Physically And Emotionally Safe Where You Currently Live? Yes [email or web address] Information not available 01/12/2021 What Was The Date Of Your Most Recent Tobacco Screening? 07/15/2021 [email or web address] Information n ot available 07/15/2021 Do You Or Have You Ever Used Any Other Forms Of Tobacco Or Nicotine? No [email or web address] Information not available 01/05/2021 Sex: Male Functional Status None recorded. Mental Status None recorded. Family History Relationship Description Onset Age of this Age Resolved Age Notes LastModified by Organization Details LastModified Time Mother Family history of stroke [email or web address] Not available 01/05 13:51:17 Father History of emphysema [email or web address] Not available 01/05 13:51:37 Father Family history of stroke [email or web address] Not available 01/05 13:51:40 Notes:. Medical History Condition Response Diabetes Y Hypertension Y High Cholesterol Y Immunizations Vaccine Type Date Status Note Provider Nam e and Address Organization Details Recorded Time COVID-19, mRNA, LNP-S, PF, 100 mcg/0.5mL dose or 50 mcg/0.25mL dose 09/25/2020 completed Kerwin Anaya [facility] 04/10/2021 13:13:04 Influenza, high-dose, quadrivalent, PF 03/31/2021 completed Mylene Snell [facility] 07/15/2021 14:58:12 Past Encounters Encounter ID Performer Location Encounter Start Date Encounter Closed Date Diagnosis/Indication Diagnosis SNOMED-CT Code Diagnosis ICD10 Code Diagnosis Note [id number] Carmen Rick NP [facility] [address] [address] 01/05/2021 13:30:14 01/05/2021 14:52:38 Obesity 048895501 E66.9 Diet education 81394294 Z71.3 Urinary symptoms 8738295 08 R39.9 burning with urgency.Hx prostatect jose luis Abrasion o f skin of left ear 0496527730 8063119 S00.412A Avoid Q- Tips.Hx Insect Left ear s/p removal 3 weeks ago. Type 2 dom betes mellitus 80152445 E11.9 Reports glucose under control Dyslipidemia 973896383 E 78.5 Pt to bring in records from prev. PCP Essential hypertension 27276723 I10 BP: 129/68 Dribbling of urine 68666 000 N39.43 REfill requested. Urology referral placed Gastroesop hageal reflux disease without esophagitis 298174962 K21.9 STable Acute urin willis tract infection 883007155 N39.0 UA with 2+ LE's, protein and 1+ blood.Rx Bactrim. [id number] Carmen Rick NP [facility] [address] [place] [address] 01/12/2021 09:41:48 01/12/2021 10:40:58 Obesity 063124197 E66.9 Diet education 66684370 Z71.3 Urinary symptoms 0958333 08 R39.9 burning with urgency.Hx prostatect omyUrology referral Completed course of abx after (+) UA.UA recheck today Abrasion o f skin of left ear 0516504137 4732461 S00.412A Avoid Q- Tips.Hx Insect Left ear s/p removal 3 weeks ago. 01/12: Left Ear improved - reports fullness . Cerumen has softened, still with dried blood to left ear canal partially obscuring the TM. Type 2 dom betes mellitus 58313668 E11.9 Reports glucose under controlPer medical records 10/15/20: HgbA1c 7.7. Onmetformi n 100mg po BID, Actos 45mg daily and Glipizide 10mg po BID. Dyslipidemia 753731831 E 78.5 Lipitor 20mg at HS Essential hypertension 52963291 I10 BP 126/76 Follow Low salt diet.On Lisinopril 40mg po daily , was on Amlodipine 10mg po daily?Dorothea y ASA 81mg Dribbling of urine 05429 000 N39.43 REfill requested. Urology referral placed Gastroesop hageal reflux disease without esophagitis 785135069 K21.9 STable Acute urin willis tract infection 101430692 N39.0 UA with 2+ LE's, protein and 1+ blood.Rx Bactrim. 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 Urologist Dr Jayna maldonado , last seen Apr 2020. Hx hypogonadi sm, neurogenic bladder and recurrent UTI.Last PSA 0.11 05/01/19 Neurogenic urinary bladder 483053780 N31.9 Last seen by urol 05/06. Impramine 10mg po BID and Oxybutnin 5mg at HS Pain of le ft shoulder joint 7523355946 3713563 M25.512 mild joint arthritis per imaging 09/2017He declined PT previously . [id number] Carmen Rick NP [facility] [address] [place] [address] 01/20/2021 13:34:36 01/20/2021 15:33:54 Obesity 441350225 E66.9 Diet education 98690232 Z71.3 Urinary symptoms 2851596 08 R39.9 burning with urgency.Hx prostatect omyUrology referral [email or web address] Completed course of abx after (+) UA.UA recheck today 01/20/21 UA with trace LE's. No blood. Referral approved to see Dr. Vazquez- pt to schedule appt. Abrasion o f skin of left ear 1331759497 1687788 S00.412A Avoid Q- Tips.Hx Insect Left ear s/p removal 3 weeks ago. 01/12: Left Ear improved - reports fullness . Cerumen has softened, still with dried blood to left ear canal partially obscuring the TM. 01/20/21 Referral to ENT/ [facility] approved. Type 2 dom betes mellitus 20654345 E11.9 Reports glucose under controlPer medical records 10/15/20: HgbA1c 7.7. On metformin 100mg po BID, Actos 45mg daily and Glipizide 10mg po BID. 01/20/21 HgbA1c: 6.8. Cont with current med regimen. On metformin 100mg po BID, Actos 45mg daily and Glipizide 10mg po BID. Dyslipidemia 129136222 E 78.5 Lipitor 20mg at HS01/20/21 Tot chol. 143, Trig 153, LDL 76Cont with Lipitor 20mg at HS Essential hypertension 13020350 I10 BP 126/76 Follow Low salt diet.On Lisinopril 40mg po daily , was on Amlodipine 10mg po daily?Dorothea y ASA 81mg 01/20/21 Cont with current med regimen Dribbling of urine 77927 000 N39.43 REfill requested. Urology referral /0 01/05: To see Dr. Vazquez Gastroesop hageal reflux disease without esophagitis 167392657 K21.9 STable Acute urin willis tract infection 213343925 N39.0 UA with 2+ LE's, protein and 1+ blood.Rx Bactrim. 01/12/21 improved recheck UA today 01/20/21: UA with trace LE's, no Blood. Tobacco de pendence in remission 409896789 F17.201 Primary ma lignant neoplasm of prostate 11973878 C61 Dx in 1992, s/p prostatect jose l[place] in [place] [address]. Urologist Dr Jayna maldonado , last seen Apr 2020. Hx hypogonadi sm, neurogenic bladder and recurrent UTI.Last PSA 0.11 05/01/19 Neurogenic urinary bladder 968642160 N31.9 Last seen by urol 05/06. Impramine 10mg po BID and Oxybutnin 5mg at HS Pain of le ft shoulder joint 9674811369 3827148 M25.512 mild joint arthritis per imaging 09/2017He declined PT previously . Hemoglobin below reference range 547099704 D64.9 Hgb 11.4, HCT 34.9. Normal MCV and MCH. Hx anemia of chronic diseasePt case entered for Fe Panel, Ferritin , & FIT Chronic constipation 236 569432 K59.09 Test resul t to patient by telephone 606634517 Z71.2 Labs reviewed [id number] Carmen Rick NP [facility] [address] [place] [address] 04/10/2021 12:47:04 04/10/2021 13:55:11 Obesity 116600995 E66.9 Pt educated on importance of lifestyle modificati on which should include but not limited to an exercise regime and diet modificati on as discussed on visit. Diet education 62856523 Z71.3 Urinary symptoms 5953928 08 R39.9 burning with urgency.Hx prostatect omyUrology referral Completed course of abx after (+) UA.UA recheck today 01/20/21 UA with trace LE's. No blood. Referral approved to see Dr. Vazquez- pt to schedule appt. 04/10/21 Prostate f/u, pt reports he has frequency and blood coming from his rectum.-He needs GI/PCP for his constipati on and blood per rectum.[place] el regimen discussed as it can also be worsen his LUTS.Sampl e of myrbetriq given for his LUTSF/U: in 4 weeksPt reports improvemen t of LUTS Abrasion o f skin of left ear 8592062060 4124565 S00.412A Avoid Q- Tips.Hx Insect Left ear s/p removal 3 weeks ago. 01/12: Left Ear improved - reports fullness . Cerumen has softened, still with dried blood to left ear canal partially obscuring the TM. 01/20/21 Referral to ENT/ [facility] approved. 04/10/21 ENT f/u completed. FB removed. Type 2 dom betes mellitus 38967843 E11.9 Reports glucose under controlPer medical records 10/15/20: HgbA1c 7.7. On metformin 100mg po BID, Actos 45mg daily and Glipizide 10mg po BID. 01/20/21 HgbA1c: 6.8. Cont with current med regimen. On metformin 100mg po BID, Actos 45mg daily and Glipizide 10mg po BID. 04/10/21 c/w metformin 100mg po BID, Actos 45mg daily and Glipizide 10mg po BID. Dyslipidemia 487373376 E 78.5 Lipitor 20mg at HS01/20/21 Tot chol. 143, Trig 153, LDL 76Cont with Lipitor 20mg at HS Essential hypertension 17669000 I10 BP 126/76 Follow Low salt diet.On Lisinopril 40mg po daily , was on Amlodipine 10mg po daily?Dorothea y ASA 81mg 01/20/21 Cont with current med regimenBP joifbd90/11/05 stop amlodipine 10mg po daily ? pedal edema x 1 weekand Follow low salt diet Gastroesop hageal reflux disease without esophagitis 890669983 K21.9 STable Tobacco de pendence in remission 844644042 F17.201 Primary ma lignant neoplasm of prostate 04428975 C61 Dx in 1992, s/p prostatect j[place] l[place] in [place] [address]. Urologist Dr Jayna maldonado , last seen Apr 2020. Hx hypogonadi sm, neurogenic bladder and recurrent UTI.Last PSA 0.11 05/01/1909 / Urology appt completed for LUTS Neurogenic urinary bladder 685732747 N31.9 Last seen by urol 05/06. Impramine 10mg po BID and Oxybutnin 5mg at HS Pain of le ft shoulder joint 3649423299 8591029 M25.512 mild joint arthritis per imaging 09/2017He declined PT previously . Hemoglobin below reference range 763324811 D64.9 Hgb 11.4, HCT 34.9. Normal MCV and MCH. Hx anemia of chronic diseasePt case entered for Fe Panel, Ferritin , & FIT Chronic constipation 236 801729 K59.09 No improvemen t with Colace Hematochezia 177045872 K 92.1 CBC 01/12/21 with Hgb 11.4, Hct 34.9Pt reporting rectal bleeding to urologistG I referral provided to pt in person Memory impairment 803377 006 R41.3 MMSE 24Dtr reported concern with memory Bilateral knee pain 1187 188045 4262786 M25.561 M25.562 Pt refuses Ortho referral or steroids [id number] Carmen Rick NP [facility] [address] [place] [address] 07/15/2021 14:34:11 07/15/2021 16:00:16 Obesity 325045193 E66.9 Pt educated on importance of lifestyle modificati on which should include but not limited to an exercise regime and diet modificati on as discussed on visit. Diet education 22771897 Z71.3 Urinary symptoms 1912805 08 R39.9 burning with urgency.Hx prostatect omyUrology referral [email or web address] Completed course of abx after (+) UA.UA recheck today 01/20/21 UA with trace LE's. No blood. Referral approved to see Dr. Vazquez- pt to schedule appt. 04/10/21 Prostate f/u, pt reports he has frequency and blood coming from his rectum.-He needs GI/PCP for his constipati on and blood per rectum.[place] el regimen discussed as it can also be worsen his LUTS.Sampl e of myrbetriq given for his LUTSF/U: in 4 weeksPt reports improvemen t of LUTS Type 2 dom betes mellitus 58734496 E11.9 Reports glucose under controlPer medical records 10/15/20: HgbA1c 7.7. On metformin 100mg po BID, Actos 45mg daily and Glipizide 10mg po BID. 01/20/21 HgbA1c: 6.8. Cont with current med regimen. On metformin 100mg po BID, Actos 45mg daily and Glipizide 10mg po BID. 04/10/21 c/w metformin 1000mg po daily , Actos 45mg daily and Glipizide 10mg po BID. 07/15/21 Pt reports home glucose good Dyslipidemia 683873299 E 78.5 Lipitor 20mg at HS01/20/21 Tot chol. 143, Trig 153, LDL 76Cont with Lipitor 20mg at HS Essential hypertension 14239598 I10 BP 126/76 Follow Low salt diet.On Lisinopril 40mg po daily , was on Amlodipine 10mg po daily?Dorothea y ASA 81mg 01/20/21 Cont with current med regimenBP [email or web address]/2 11/05 stop amlodipine 10mg po daily ? pedal edema x 1 weekand Follow low salt diet Has been taking amlodipine 10mg, 1/2 tablet daily- less pedal edema . BP 124/81 Gastroesop hageal reflux disease without esophagitis 850122651 K21.9 STable Tobacco de pendence in remission 488141036 F17.201 Primary ma lignant neoplasm of prostate 83105469 C61 Dx in 1992, s/p prostatect jose luis in [place] [address]. Urologist Dr Dorantes i , last seen Apr 2020. Hx hypogonadi sm, neurogenic bladder and recurrent UTI.Last PSA 0.11 05/01/1909 / Urology appt completed for LUTS Neurogenic urinary bladder 104473284 N31.9 Last seen by urol 05/06. Impramine 10mg po BID and Oxybutnin 5mg at HS Pain of le ft shoulder joint 5971287935 7234792 M25.512 mild joint arthritis per imaging 09/2017He declined PT previously . Hemoglobin below reference range 466711065 D64.9 Hgb 11.4, HCT 34.9. Normal MCV and MCH. Hx anemia of chronic diseasePt case entered for Fe Panel, Ferritin , & FIT Chronic constipation 236 030877 K59.09 No improvemen t with Colace Hematochezia 917404528 K 92.1 CBC 01/12/21 with Hgb 11.4, Hct 34.9Pt reporting rectal bleeding to urologistG I referral provided to pt in person 07/15/21 Pt has not made appt with GI - referral provided to pt in person Memory impairment 496531 006 R41.3 MMSE 24Dtr reported concern with memory Bilateral knee pain 1187 614895 3957846 M25.561 M25.562 Pt refuses Ortho referral or steroids Vaccine de clined by patient 9021810651 02 Z28.20 Pt declines shingles, Tdap vaccine Advance di rective discussed with patient 441174845 Z71.89 PT reports he has living will At [facility] risk for falls 474114095 Z91.81 Secondary immune deficiency disorder 13514261 D84.9 T2DM Health Concerns Section Related Observation LastModified by Organization Detai ls LastModified Time None Recorded Concern Status LastModified by Organization Details LastModified Time None Recorded Advance Directives Directive None Recorded Payers Encounter Date Sequence Insurance Name Policy Number Policy [place] Covered Member ID [place] Member ID Guarantor Name 01/05/2021 1 [facility] (MEDICAID REPLACEMENT - HMO) Toni Cardenas [id number] Toni Cardenas Meehan 01/05/2021 1 [place] Toni Cardenas [id number] Toni Cardenas Meehan 01/12/2021 1 [facility] (MEDICAID REPLACEMENT - HMO) Toni Cardenas [id number] Toni Cardenas Meehna 01/12/2021 1 [place] Toni Cardenas [id number] Toni Cardenas Meehan 01/20/2021 1 [facility] (MEDICAID REPLACEMENT - HMO) Toni Cardenas [id number] Toni Cardenas Meehan 01/20/2021 1 [place] Toni Cardenas [id number] Toni Cardenas Meehan 04/10/2021 1 [employer] (MEDICAID REPLACEMENT - HMO) Toni Cardenas [id number] Tonirafia Cardenas Meehan 04/10/2021 1 [place] Tonirafia Thomasarria [id number] Toni Theresa Meehan 07/15/2021 1 [facility] (MEDICAID REPLACEMENT - HMO) Toni Cardenas [id number] Toni Cardenas Meehan 07/15/2021 3 [place] Tonirafia Salazaria [id number] Toni Cardenas Meehan Notes Date Note Type Note Provider Name and Address Organization Details Recorded Time 01/05/2021 text/html 85-year-old male New patient. Patient is here to establish care. Patient reports recent relocation from [place]. He is accompanied by his daughter lela at today's visit. Patient is reporting left ear pain for the past 3 weeks. Patient shares a had insect removed from ear at local hospital. Continues to have pain and itchiness. Patient also reports burning with urination, urgency and foul odor. He has history of prostatectomy. Needs to establish with a local urologist. Past medical history type 2 diabetes, hypertension, dyslipidemia , GERD colonoscopy:Annual: Eye Exam: Carmen Rick NP [address] [place], [address] 01/05/2021 15:27:02 01/12/2021 text/html 85-year-old male New patient. Patient is here to establish care. Patient reports recent relocation from [place]. He is accompanied by his daughter lela at today's visit. Patient is reporting left ear pain for the past 3 weeks. Patient shares a had insect removed from ear at local hospital. Continues to have pain and itchiness. Patient also reports burning with urination, urgency and foul odor. He has history of prostatectomy. Needs to establish with a local urologist. Past medical history type 2 diabetes, hypertension, dyslipidemia , GERD 01/12/21 85 yo male EP. Here for f/u reports improvement of urine .- still with left ear fullness, no pain or ringing. colonoscopy: Annual: Eye Exam: 03/25/20 - no retinopathy Carmen Rick NP [address] [place], [address], [facility] 01/12/2021 13:20:14 01/20/2021 text/html 85-year-old male New patient. Patient is here to establish care. Patient reports recent relocation from [place]. He is accompanied by his daughter lela at today's visit. Patient is reporting left ear pain for the past 3 weeks. Patient shares a had insect removed from ear at [facility]. Continues to have pain and itchiness. Patient also reports burning with urination, urgency and foul odor. He has history of prostatectomy. Needs to establish with a local urologist. Past medical history type 2 diabetes, hypertension, dyslipidemia , GERD 01/12/21 85 yo male EP. Here for f/u reports improvement of urine .- still with left ear fullness, no pain or ringing. 01/20/21 : 85 yo male , telephone visit for labs. They are requesting med and DM supply refills. Referral to ENT and Urology have been approved- referrals mailed. No acute concerns reported. This visit was completed via telephone . All issues as below were discussed and addressed but no physical exam was performed , If it was felt that the patient should be evaluated in clinic then they were directed there. Patient verbally consented to visitcolonoscopy: Annual: Eye Exam: 03/25/20 - no retinopathy Carmen Rick NP [address] [place], [address], [facility], [facility]. 01/20/2021 14:35:26 04/10/2021 text/html 85-year-old male New patient. Patient is here to establish care. Patient reports recent relocation from [place]. He is accompanied by his daughter lela at today's visit. Patient is reporting left ear pain for the past 3 weeks. Patient shares a had insect removed from ear at [facility]. Continues to have pain and itchiness. Patient also reports burning with urination, urgency and foul odor. He has history of prostatectomy. Needs to establish with a local urologist. Past medical history type 2 diabetes, hypertension, dyslipidemia , GERD 01/12/21 85 yo male EP. Here for f/u reports improvement of urine .- still with left ear fullness, no pain or ringing. 01/20/21 : 85 yo male , telephone visit for labs. They are requesting med and DM supply refills. Referral to ENT and Urology have been approved- referrals mailed. No acute concerns reported. This visit was completed via telephone . All issues as below were discussed and addressed but no physical exam was performed , If it was felt that the patient should be evaluated in clinic then they were directed there. Patient verbally consented to visit 04/10/21 EP here for f/u. He is accompanied by his daughter.Pt completed appt with urologist and [facility] persistent maryana. lower ext swelling. colonoscopy: GI referral initiatedAnnual:Eye Exam: 03/25/20 - no retinopathy Carmen Rick NP [address] [place], [address], [facility] - [facility]. 04/13/2021 08:48:16 07/15/2021 text/html 85-year-old male New patient. Patient is here to establish care. Patient reports recent relocation from [place]. He is accompanied by his daughter lela at today's visit. Patient is reporting left ear pain for the past 3 weeks. Patient shares a had insect removed from ear at local hospital. Continues to have pain and itchiness. Patient also reports burning with urination, urgency and foul odor. He has history of prostatectomy. Needs to establish with a local urologist. Past medical history type 2 diabetes, hypertension, dyslipidemia , GERD 01/12/21 85 yo male EP. Here for f/u reports improvement of urine .- still with left ear fullness, no pain or ringing. 01/20/21 : 85 yo male , telephone visit for labs. They are requesting med and DM supply refills. Referral to ENT and Urology have been approved- referrals mailed. No acute concerns reported. This visit was completed via telephone . All issues as below were discussed and addressed but no physical exam was performed , If it was felt that the patient should be evaluated in clinic then they were directed there. Patient verbally consented to visit 04/10/21 EP here for f/u. He is accompanied by his daughter.Pt completed appt with urologist and [facility] persistent maryana. lower ext swelling. 07/15/21 85 y/o male here for f/u and med refills. He is accompanied by his granddaughter today. No acute concerns reported. Pt shares that he may be returning to [facility]. colonoscopy: GI referral initiatedAnnual:Eye Exam: 03/25/20 - no retinopathy Carmen Rick NP [address] [place], [address], [facility] - [facility] 07/16/2021 07:57:05
--- OUTSIDE RECORDS SUMMARY | 2024-09-17 16:01 | XMS_ITS | Encounter Summary ---
Author Organization [employer] Address [address] [place] [address] Care Team Providers Care Lithograph Press Operator Name Role Phone Jolly London MD Primary Care Provider [phone] Javier Benton PharmD Unavailable [phone] Reason for Visit * Reason Onset Date Comments Appointment Request 08/22/2024 dme bp monitor 08/22/2024 Encounter Details Date Type Department Care Team ([facility] st Contact Info) Description 08/22/2024 Telephone [facility] MEDICINE [address] [place] [address] Melissa Ashraf MA Appointment Request; dme bp monitor Social History Tobacco Use Types Packs/Day Years [...] AM EDT documented as of this encounter Miscellaneous Notes * Telephone Encounter - Melissa Ashraf MA - 08/22/2024 9:45 AM EST Jose Luis faxed script for bp monitor to [facility] referrals documented in this encounter Plan of Treatment Not on file documented as of this encounter Goals Goal Patient Goal Type Associated Problems Recent Progress Patient-Stated? Author Blood Pressure < 140/90 Blood Pressure 146/80( 025 1:51 PM EST) No Javier Benton, Marc documented as of this encounter Visit Diagnoses Not on filedocumented in this encounter Additional Health Concerns Assessment Noted Time PHQ-9 Depression Total Score: 1 08/13/19 25 3:11 PM EST documented as of this encounter Care Teams Lithograph Press Operator Relationship Specialty Start Date End Date Jolly London MD [address] [place] [address] PCP - General Family Medicine 06/29/12 Javier Benton, AreliD [address] [place] [address] Pharmacist Internal Medicine 01/14/23 documented as of this encounter
--- OUTSIDE RECORDS SUMMARY | 2024-09-17 16:01 | XMS_ITS | Encounter Summary ---
Author Organization [employer] Address [address] [place] [address] Care Team Providers Care Study Specialist Name Role Phone Jolly London MD Primary Care Provider [phone] Javier Benton PharmD Unavailable [phone] Reason for Visit * Reason Onset Date Comments Homecare Delivered 08/31/2024 Automatic BP Monitor, Dial Encounter Details Date Type Department Care Team (Late st Contact Info) Description 08/31/2024 Telephone [facility] MEDICINE [address] [place], [place] [phone] Jolly Londno MD [address] [place], [place] [phone] Homecare Delivered (Automatic BP Monitor, Dial) Social History Tobacco Use Types Packs/Day Years [...] encounter Miscellaneous Notes * Telephone Encounter - Maria Elena Martinez MA - 09/04/2024 11:03 AM EST Received forms below signed by PCP I faxed them back to [employer] and also sent to scan. * Telephone Encounter - Agustina Lindsay MA - 08/31/2024 11:22 AM EST Received medical necessity form from [facility] Delivered for Automatic BP Monitor, Dial. Form has been filled out and placed on PCP's desk for their signature. documented in this encounter Plan of Treatment [...] documented as of this encounter Care Teams Study Specialist Relationship Specialty Start Date End Date Jolly London MD [address] [place] [id number] PCP - General Family Medicine 06/29/12 Javier Benton, PharmD [address] [place] [address] [place] [address] Pharmacist Internal Medicine 01/14/23 documented as of this encounter
--- OUTSIDE RECORDS SUMMARY | 2024-09-17 16:01 | XMS_ITS | Encounter Summary ---
Author Organization [employer] Address [address] [place] [address] Care Team Providers Care Reed Man Name Role Phone Jolly London MD Primary Care Provider [phone] Javier Benton PharmD Unavailable [phone] Encounter Details Date Type Department Care Team (Late st Contact Info) Description 02/28/2023 Orders Only [facility] MEDICINE [address] [place], [place] [phone] Jolly London MD [address] [place], [place] [phone] Anemia of chronic disorder (Primary Dx); Hyperkalemia Social History Tobacco Use Types Packs/Day Years Used Date Smoking Tobacco: Never Passive Smoke Exposure: Never Smokeless Tobacco: Never Depression Answer Date Recorded Patient Health Questionnaire-9 Score 0 02/14/2023 Depression Answer Date Recorded Patient Health Questionnaire-2 Score 0 02/14/2023 Sex and Gender Information Value Date Recorded Sex Assigned at Male 05/17/2022 10:15 AM EDT Legal Sex Male 10:15 AM EDT Gender Identity Male 05/17/2022 10:15 AM EDT Sexual Orientation Straight 05/17/2022 10 :15 AM EDT documented as of this encounter Plan of Treatment Scheduled Orders Name Type Priority Associated Diagnoses Orde r Schedule Basic Metabolic Panel Lab Routine Hyperkalemia Expected: 02/28/2023 (Approximate), Expires: 02/29/2024 documented as of this encounter Goals Goal Patient Goal Type Associated Problems Recent Progress Patient-Stated? Author Blood Pressure < 140/90 Blood Pressure 146/80( 025 1:51 PM EST) No Javier Benton, PharmD documented as of this encounter Visit Diagnoses Diagnosis Anemia of chronic disorder- Primary Anemia of other chronic disease Hyperkalemia Hyperpotassemia documented in this encounter Additional Health Concerns Assessment Noted Time PHQ-9 Depression Total Score: 0 02/15/20 1:30 PM EDT documented as of this encounter Care Teams Reed Man Relationship Specialty Start Date End Date Jolly London MD [address] [place] [address] PCP - General Family Medicine 06/29/12 Javier Benton, PharmD [address] [place] [address] Pharmacist Internal Medicine 01/14/23 documented as of this encounter
--- OUTSIDE RECORDS SUMMARY | 2024-09-17 16:01 | XMS_ITS | Encounter Summary ---
Author Organization [email or web address] Address [address] [facility] [address] [place] [address] Care Team Providers Care Sand Plant Attendant Name Role Phone Jolly London MD Primary Care Provider [phone] Javier Benton PharmD Unavailable [phone] Encounter Details Date Type Department Care Team (Late st Contact Info) Description 03/07/2024 Orders Only [facility] MEDICINE [address] [place], [place] [phone] Jolly London MD [address] [place], [place] [phone] Social History Tobacco Use Types Packs/Day Years [...] documented as of this encounter Care Teams Sand Plant Attendant Relationship Specialty Start Date End Date Jolly London MD [address] [place] [address] PCP - General Family Medicine 06/29/12 Javier Benton, AreliD [address] [place] [address] Pharmacist Internal Medicine 01/14/23 documented as of this encounter
--- OUTSIDE RECORDS SUMMARY | 2024-09-17 16:01 | XMS_ITS | Encounter Summary ---
Author Organization [employer] Address [address] [facility] [address] [place] [address] Care Team Providers Care Industrial Gas Servicer Name Role Phone Jolly London MD Primary Care Provider [phone] Javier Benton PharmD Unavailable [phone] Reason for Visit * Reason Comments Med Refill Encounter Details Date Type Department Care Team ([facility] st Contact Info) Description 08/18/2024 Refill [facility] MEDICINE [address] [place] [address] oJlly London MD [address] [place], [place] [phone] Primary hypertension Social History Tobacco Use Types Packs/Day Years [...] as of this encounter Visit Diagnoses Diagnosis Primary hypertension Unspecified essential hypertension documented in this encounter Additional Health Concerns Assessment Noted Time PHQ-9 Depression Total Score: 1 08/13/19 25 3:11 PM EST documented as of this encounter Care Teams Industrial Gas Servicer Relationship Specialty Start Date End Date Jolly London MD [address] [place] [address] PCP - General Family Medicine 06/29/12 Javier Benton, AreliD [address] [place] [address] Pharmacist Internal Medicine 01/14/23 documented as of this encounter
--- OUTSIDE RECORDS SUMMARY | 2024-09-17 16:01 | XMS_ITS | Encounter Summary ---
Author Organization [employer] Address [address] [facility] 7[address] [place] [address] Care Team Providers Care Ux Lead Name Role Phone Jolly London MD Primary Care Provider [phone] Javier Benton PharmD Unavailable [phone] Encounter Details Date Type Department Care Team (Late st Contact Info) Description 08/13/2024 3:00 PM EST Office Visit [facility] MED[facility]INE [address] [place], [place] [phone] Jolly London MD [address] [place] [address] Primary hypertension (Primary Dx); Prostate cancer (CMS/HCC); Neurogenic bladder; Recurrent UTI; Type 2 diabetes mellitus with hyperglycemia, without long-term current use of insulin (CMS/HCC); Anemia of chronic disease; Sensorineural hearing loss, bilateral; Dyslipidemia Social History Tobacco Use Types Packs/Day Years [...] AM EDT documented as of this encounter Last Filed Vital Signs Vital Sign Reading Time Taken Comments Blood Pressure 130/70 08/13/2024 3:11 PM EST Pulse 60 08/13/2024 3:11 PM EST Temperature 36.2 ??C (97.2 ??F) 08/13/2024 3:11 PM ES T Respiratory Rate 16 08/13/2024 3:11 PM EST Oxygen Saturation - - Inhaled Oxygen Concentration - - Weight 78 kg (172 lb) 08/13/2024 3:11 PM EST Height - - Body Mass Index 32.5 03/07/2024 2:05 PM EDT documented in this encounter Progress Notes * Jolly London MD - 08/13/2024 3:00 PM EST Subjective Toni Meehan is a 88 y.o. male who has diabetes mellitus type 2, hypertension, and recurrent prostate cancer, and patient presents for follow up of chronic conditions. Background: Our last encounter was 04/26/2024. Doing better. He had a hospitalization due to UTI in summer 2023. Interval history: Seen by urologist on 05/22/24. Completed external beam radiation treatment on 04/02/24. Continuing Camcevi administration. PSA 0.3 in Mar 2024, 0.4 in Apr 2024. Continue Gemtesa (given sample) and follow up in 6 mo. Today: The pt has gained 10 lbs since the last time he was seen. His sugar is also rising. He says he is too lazy to cook so he eats out frequently. He reports that he can work on bringing down the weight and sugar through his diet, and does not need medication increase. He is encouraged to decrease salt c onsumption, and he explains how he wants to stop eating as much/eat better food. He reports going to his eye exam two weeks ago. He does not check his BP at home because last time he tried the machine didn't work. He says he checked on a machine recently and his levels were not bad. I am going to check to see if he can get a blood pressure monitor. He denies any trouble breathing. Review of Systems Constitutional: Positive for unexpected weight change. Negative for activity change, appetite change and fever. Respiratory: Negative for shortness of breath. Cardiovascular: Negative for chest pain. Objective Vitals: 08/13/24 1511 BP: 130/70 Pulse: 60 Resp: 16 Temp: 97.2 ??F (36.2 ??C) TempSrc: Temporal Weight: 172 lb (78 kg) Physical Exam Constitutional: General: He is not in acute distress. Appearance: Normal appearance. He is not ill-appearing. HENT: Head: Normocephalic and atraumatic. Mouth/Throat: Mouth: Mucous membranes are moist. Eyes: Extraocular Movements: Extraocular movements intact. Pupils: Pupils are equal, round, and reactive to light. Cardiovascular: Rate and Rhythm: Normal rate and regular rhythm. Heart sounds: No murmur heard. Pulmonary: Effort: Pulmonary effort is normal. No respiratory distress. Breath sounds: Normal breath sounds. No wheezing or rhonchi. Skin: General: Skin is warm. Neurological: Mental Status: He is alert. Mental status is at baseline. Psychiatric: Mood and Affect: Mood normal. Results: Lab Results Component Value Date NA 138 04/26/2024 K 4.3 04/26/2024 CL 107 04/26/2024 CO2 25 04/26/2024 BUN 22 (H) 04/26/2024 CREATININE 1.22 04/26/2024 CRCLCALCPH 28.7 02/17/2024 EGFR 56 04/26/2024 GLUCOSE 225 (H) 04/26/2024 TOTALBILIRUB 0.6 04/26/2024 AST 13 04/26/2024 ALT 12 04/26/2024 TOTPROTEIN 6.3 (L) 04/26/2024 ALB 3.7 04/26/2024 ALP 87 04/26/2024 Lab Results Component Value Date TRIG 190 (H) 01/25/2024 CHOL 134 01/25/2024 LDLCHOLCAL 58 01/25/2024 HDL 38 (L) 01/25/2024 Lab Results Component Value Date HGBA1C 7.9 (A) 08/13/2024 MICROALBUR 33.0 01/25/2024 CREATUR 29.23 01/25/2024 MICROALBCREU 112.8 (H) 01/25/2024 Lab Results Component Value Date WBC 5.4 04/26/2024 HGB 10.1 (L) 04/26/2024 HCT 32.0 (L) 04/26/2024 PLT 228 04/26/2024 MCV 86.5 04/26/2024 The ASCVD Risk score (Sabiha WEAVER, et al., 2019) failed to calculate for the following reasons: The 2019 ASCVD risk score is only valid for ages 40 to 79 Screening and Health Care Maintenance: PHQ-2/9 Score: Patient Health Questionnaire-9 Score: 1 (08/13/2024 3:11 PM) Patient Health Questionnaire-2 Score: 0 (08/13/2024 3:11 PM) Thoughts that you would be better off or hurting yourself in some way: Not at all (08/13/2024 3:11 PM) HAKEEM-7 Score: No data recorded Health Maintenance Due Topic Date Due Eye Exam Never done Hepatitis A Vaccines (1 of 2 - Risk 2-dose series) Never done SDOH Screening 10/06/2024 Diabetes: Hemoglobin A1C 11/11/2024 Assessment/Plan Problem List Items Addressed This Visit Anemia of chronic disease - Normocytic anemia. Elevated ferritin level. - Seen by electrotyper apprentice in July 2023 - monitor - Continue current iron supplementation Diabetes mellitus, type 2 (CMS/HCC) -HgbA1C 6.9% on 04/26/24 -Continue working on [...] HDL 38; LDL 58 -Last dental exam: Relevant Orders POCT glucose manually resulted (Completed) POCT glycosylated hemoglobin (Hgb A1c) (Completed) Dyslipidemia -Current medication: atorvastatin 40 mg at bedtime -Last lipid profile: 01/25/24 -Continue current medication and lifestyle modification effort Neurogenic bladder - Following with Urologist, [facility], last seen in Apr 2024 -Discontinued Imipramine. -Continue mirabegron -Recently given a sample of Gemtesa -Treatment Hx: Previously on oxybutynin 5 mg which was changed to mirabegron when he went to [place] and was seen by an urologist there. Previously on imipramine, which was recommended to discontinuedue to anticholinergic effect. Sensorineural hearing loss, bilateral Hypertension - Primary -Goal BP < 140/90 per JNC-8, < [...] for RONEY with hyperkalemia in February 2024. Recurrent UTI -Most recent in Feb 2024, E. Coli [...] culture as he is having mild symptoms Prostate cancer (CMS/HCC) Dx in 1992. s/p prostatectomy in 1992 in [place]. Urologist: [facility], last seen in Apr 2024 Hx [...] current treatment plan per urologist and oncologist. Allergies Allergen Reactions Cephalexin Other Abdominal pain and constipation. Seen in ED. He tolerated cefuroxime Oxycodone Dizziness Other reaction(s): VOMITING/DIZZINES Oxycodone-Acetaminophen Dizziness Pt reported vomiting and dizziness. Other reaction(s): nausea/dizziness Current Outpatient Medications Medication Instructions Alcohol Swabs (Alcohol Prep) 70 % pads USE TO CHECK BLOOD SUGAR DIRECTED amLODIPine (NORVASC) 5 mg, Oral, Daily ammonium lactate (Lac-Hydrin) 12 % cream Topical, As needed Aspirin Adult Low Strength 81 mg, Oral, Daily atorvastatin (LIPITOR) 40 mg, Oral, Daily benzonatate (TESSALON) 200 mg, Oral, 3 times daily PRN, Do not crush or chew. Blood Glucose Monitoring Suppl (FreeStyle glucose monitoring) kit TEST BLOOD SUGAR 3 TIMES EVERY DAY Blood Pressure kit Does not apply COVID-19 At-Home Test kit 1 each, In Vitro, Once as needed cyanocobalamin (Vitamin B-12) 1000 MCG tablet TAKE 1 TABLET BY MOUTH EVERY DAY ferrous sulfate (FEROSUL) 325 mg, Oral, 2 times daily FreeStyle lancets 1 each, Other, 3 times daily before meals, TEST BLOOD SUGAR 3 TIMES A DAY glucose blood (FREESTYLE LITE) test strip USE DIRECTED TO TEST BLOOD SUGAR THREE TIMES DAILY magnesium oxide (MAG-OX) 400 mg, Oral, Daily metFORMIN XR (GLUCOPHAGE-XR) 750 mg, Oral, 2 times daily with meals, Do not crush, chew, or split. mirabegron ER (Myrbetriq) 50 MG 24 hr tablet 1 tablet, Oral, Daily pioglitazone (ACTOS) 45 mg, Oral, Nightly vitamin C 500 mg, Oral, Every morning Follow-up: 3 months or sooner if any problem arises. Scribe Attestation: Derek Florez, am serving as a scribe to document services personally performed by Jolly London MD,based on the patient's response to questions by provider and provides statements to me. Physicians Attestation: Jolly Florez, have reviewed the information by the scribe, Monse Golden, for accuracy and agree with its content. documented in this encounter Miscellaneous Notes * Assessment & Plan Note - Derek Cook - 08/13/2024 3:53 PM ESTAssociated Problem(s): Dyslipidemia -Current medication: atorvastatin 40 mg at bedtime -Last lipid profile: 01/25/24 -Continue current medication and lifestyle modification effort * Assessment & Plan Note - Derek Cook - 08/13/2024 3:53 PM ESTAssociated Problem(s): Anemia of chronic disease - Normocytic anemia. Elevated ferritin level. - Seen by electrotyper apprentice in July 2023 - monitor - Continue current iron supplementation * Assessment & Plan Note - Derek Cook - 08/13/2024 3:53 PM ESTAssociated Problem(s): Diabetes mellitus, type 2 (CMS/HCC) -HgbA1C 7.9% on 08/13/24 -Continue working on [...] HDL 38; LDL 58 -Last dental exam: * Assessment & Plan Note - Derek Cook - 08/13/2024 3:52 PM ESTAssociated Problem(s): Recurrent UTI -Most recent in Feb 2024, E. Coli [...] culture as he is having mild symptoms * Assessment & Plan Note - Derek Cook - 08/13/2024 3:52 PM ESTAssociated Problem(s): Prostate cancer ([facility]) Dx in 1992. s/p prostatectomy in 1992 in [place]. Urologist: [facility], last seen in Apr 2024 Hx [...] current treatment plan per urologist and oncologist. * Assessment & Plan Note - Derek Cook - 08/13/2024 3:52 PM ESTAssociated Problem(s): Neurogenic bladder - Following with Urologist, [facility], last seen in Apr 2024 -Discontinued Imipramine. -Continue mirabegron -Recently given a sample of Gemtesa -Treatment Hx: Previously on oxybutynin 5 mg which was changed to mirabegron when he went to [place] and was seen by an urologist there. Previously on imipramine, which was recommended to discontinuedue to anticholinergic effect. * Assessment & Plan Note - Derek Cook - 08/13/2024 3:52 PM ESTAssociated Problem(s): Hypertension -Goal BP < 140/90 per JNC-8, < [...] for RONEY with hyperkalemia in February 2024. documented in this encounter Plan of Treatment Not on file documented as of this encounter Goals Goal Patient Goal Type Associated Problems Recent Progress Patient-Stated? Author Blood Pressure < 140/90 Blood Pressure 146/80( 025 1:51 PM EST) No Javier Benton, PharmD documented as of this encounter Procedures Procedure Name Priority Date/Time Associated Diagnosis Comments POCT GLYCOSYLATED HEMOGLOBIN (HGB A1C) Routine 08/13/2024 3:13 PM EST Type 2 diabetes mellitus with hyperglycemia, without long-term current use of insulin ([facility]) POCT GLUCOSE Routine 08/13/2024 3:12 PM EST Type 2 diabetes mellitus with hyperglycemia, without long-term current use of insulin ([facility]) documented in this encounter Results * (ABNORMAL) POCT glycosylated hemoglobin (Hgb A1c) (08/13/2024 3:13 PM EST) Hemoglobin A1C 7.9(A) 4.0 - 6.0 % QC Media Lot # [id number] Lot# Expiration Date Blood Capillary blood specimen / Unknown 08/13/2024 3:13 PM EST us Jolly London MD POINT OF CARE TEST ENTER/EDIT OR DERABLES Final Result * POCT glucose manually resulted (08/13/2024 3:12 PM EST) Glucose Blood, POC 170 60 - 200 mg/dL QC Media Lot # [id number] Lot# Expiration Date ,025 Blood Capillary blood specimen / Unknown 08/13/2024 3:12 PM EST us Jolly London MD POINT OF CARE TEST ENTER/EDIT OR DERABLES Final Result documented in this encounter Visit Diagnoses Diagnosis Primary hypertension- Primary Unspecified essential hypertension Prostate cancer ([facility]) Malignant neoplasm of prostate Neurogenic bladder Neurogenic bladder, NOS Recurrent UTI Urinary tract infection, site not specified Type 2 diabetes mellitus with hyperglycemia, without long-term current use of insulin ([facility]) Anemia of chronic disease Anemia of other chronic disease Sensorineural hearing loss, bilateral Dyslipidemia Other and unspecified hyperlipidemia documented in this encounter Additional Health Concerns Assessment Noted Time PHQ-9 Depression Total Score: 1 08/13/19 25 3:11 PM EST documented as of this encounter Care Teams Ux Lead Relationship Specialty Start Date End Date Jolly London MD [address] [place] [address] PCP - General Family Medicine 06/29/12 Javier Benton, Marc [address] [place] [address] Pharmacist Internal Medicine 01/14/23 documented as of this encounter
--- OUTSIDE RECORDS SUMMARY | 2024-09-17 16:01 | XMS_ITS | Patient Health Record ---
Author Organization [facility] [employer] Address [address] [place] [address] [place] [address] Care Team Providers Care Asian Studies Program Chair Name Role Phone Nadia Black Primary Care Provider CRIS Lr Unavailable [phone] Allergies No Known Allergies Reason For Referral No Information Medications Medication SIG (Take, Route, Fr equency, Duration) Notes Start Date End Date Status -81 Active Lisinopril 20 MG 1 tablet Orally Once a day for 30 day(s) Active Imipramine HCl 10 MG 1 tablet Orally Onc e a day for 30 day(s) Active Actos 45 MG 1 tablet Orally Once a day for 30 day(s) Active GlipiZIDE 10 MG 1 tablet 30 minutes before breakfast Orally Once a day for 30 day(s) Active Omeprazole 20 MG 1 capsule 30 minutes before morning meal Orally Once a day for 30 day(s) Active Myrbetriq 50 MG 1 tablet Orally Once a day for 90 day(s) 04/09/2021 Active Metformin HCl 1000 MG 1 tablet with a me al Orally Once a day for 30 day(s) Active Immunizations Vaccine Route Administration Date Status Comme nts FLU (Past vaccine of unknown type) Unknown 04/17/2018 A dministered FLU (Past vaccine of unknown type) Unknown 04/17/2019 A dministered FLU (Past vaccine of unknown type) Unknown 04/17/2020 A dministered zCOVID-19 (Moderna) 12+yrs, NO PRES Unknown 09/25/2020 Administered Social History Tobacco Use: Social History Observation Description Date Details (start date - stop date) Former Smoker NA - NA Tobacco Status: Question Answer Notes Patient is a former smoker Problems Problem Type SNOMED Code ICD Code Onset Dates Problem Status W/U Status Risk Notes Problem 440867017 Urinary frequenc y (R35.0) Active confirmed Problem [id number] Prostate cancer (C61) Active confirmed Problem [id number] Urge incontinenc e of urine (N39.41) Active confirmed Plan Of Treatment No Information Insurance Providers Payer Name Payer Address Payer Phone Subscriber Number Group Number Insured Name Patient Relationship to Insured Coverage Start Date Coverage End Date [facility] [address] TELMA BOATENG [id number] Toni Leyva Self - patient is the insured 8 [facility] [address] [place], [place] [id number] Toni Leyva Self - patient is the insured 1 1 MEDICARE [place] PART B [address] [facility] TELMA YOUNG [id number] Toni Leyva Self - patient is the insured Medical (General) History Medical History History ICD Code Prostate cancer Diabetes mellitus Hypertension Hyperlipidemia Constipation UTI Hemriods Surgical History Surgery Date(Month/Year) prostate circumcision cataract surgery
--- OUTSIDE RECORDS SUMMARY | 2024-09-17 16:01 | XMS_ITS | Encounter Summary ---
Author Organization [employer] Address [address] [facility] 7t [place] [address] Care Team Providers Care Publicity Director Name Role Phone Jolly London MD Primary Care Provider [phone] Javier Benton PharmD Unavailable [phone] Reason for Visit * Reason Comments Broken Dentures Encounter Details Date Type Department Care Team ([facility] st Contact Info) Description 09/05/2024 1:30 PM EST Office Visit [facility] ADULT DENTAL [address] [place], [place] [phone] Gareth Fox, DDS [address] [place], [place] [phone] Excessive attrition of teeth, 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 (Primary Dx); Dental plaque; Missing teeth, acquired Social History Tobacco Use Types Packs/Day Years Used Date Smoking Tobacco: Former Cigarettes Passive Smoke Exposure: Never Smokeless Tobacco: Never Alcohol Use Standard Drinks/Week Comments Defer 0 [...] Pressure 146/80 09/05/2024 1:51 PM EST Pulse - - Temperature - - Respiratory Rate - - Oxygen Saturation - - Inhaled Oxygen Concentration - - Weight - - Height - - Body Mass Index - - documented in this encounter Progress Notes * Gareth Fox DDS - 09/05/2024 1:30 PM EST Dental procedures in this visit [id number] - REPAIR RESIN PARTIAL DENTURE BASE, MAX D0120 - PERIODIC ORAL EVALUATION - ESTABLISHED PATIENT D0330 - PANORAMIC RADIOGRAPHIC IMAGE Patient ID: Toni Meehan is a 88 y.o. male. Time Out: Timeout Date: 09/05/24, Timeout Time: 1355 (limited exam panorex taken. broken partial) Location: [facility] Tooth: Maxilla and Mandible Procedure: Exam and X-rays and repair of max. RPD Verified the above with patient, mobile unit assistant, and provider. Confirmed via patient's chart, intraorally and by radiographs. Annealer Helper: not applicable Chief Complaint Patient presents with Broken Dentures Medical Hx: Vitals: Blood pressure (!) 146/80. Past Medical History: Diagnosis Date Diabetes mellitus ([facility]) Gastroesophageal reflux disease 01/07/2016 Helicobacter pylori gastrointestinal tract infection 01/07/2016 Recurrent UTI 11/09/2022 Medications: Outpatient Encounter Medications as of 09/05/2024 Medication Sig Dispense Refill Alcohol Swabs (Alcohol Prep) 70 % pads USE TO CHECK BLOOD SUGAR DIRECTED 100 each 5 amLODIPine (Norvasc) 5 MG tablet TAKE 1 TABLET BY MOUTH EVERY MORNING 90 tablet 3 ammonium lactate (Lac-Hydrin) 12 % cream Apply topically if needed for dry skin. 385 g 3 Ascorbic Acid (vitamin C) 500 MG tablet TAKE 1 TABLET BY MOUTH EVERY MORNING 90 tablet 3 Aspirin Adult Low Strength 81 MG EC tablet TAKE 1 TABLET BY MOUTH EVERY DAY 90 tablet 3 atorvastatin (Lipitor) 40 MG tablet Take 1 tablet (40 mg) by mouth Once per day. 90 tablet 3 benzonatate (Tessalon) 200 MG capsule Take 1 capsule (200 mg) by mouth if needed in the morning, atnoon, and at bedtime for cough. Do not crush or chew. 60 capsule 1 Blood Glucose Monitoring Suppl (FreeStyle glucose monitoring) kit TEST BLOOD SUGAR 3 TIMES EVERY DAY 1 each 0 Blood Pressure kit COVID-19 At-Home Test kit 1 each by In Vitro route 1 (one) time if needed (symptoms of COVID or exposure) for up to 1 dose. 2 kit 1 cyanocobalamin (Vitamin B-12) 1000 MCG tablet TAKE 1 TABLET BY MOUTH EVERY DAY 90 tablet 3 ferrous sulfate (FeroSul) 325 (65 Fe) MG tablet Take 1 tablet (325 mg) by mouth 2 times daily. 180 tablet 3 FreeStyle lancets 1 each by Other route before breakfast, before lunch, and before evening meal. TEST BLOOD SUGAR 3 TIMES A DAY 100 each 11 glucose blood (FREESTYLE LITE) test strip USE DIRECTED TO TEST BLOOD SUGAR THREE TIMES DAILY 100strip 5 magnesium oxide (Mag-Ox) 400 MG tablet Take 1 tablet (400 mg) by mouth Once per day. 90 tablet 3 metFORMIN XR (Glucophage-XR) 750 MG 24 hr tablet Take 1 tablet (750 mg) by mouth with breakfast andwith evening meal. Do not crush, chew, or split. 180 tablet 3 mirabegron ER (Myrbetriq) 50 MG 24 hr tablet Take 1 tablet by mouth 1 (one) time each day. pioglitazone (Actos) 45 MG tablet TAKE 1 TABLET BY MOUTH EVERY EVENING 90 tablet 1 No facility-administered encounter medications on file as of 09/05/2024. Objective HPI Asymptomatic Head and Neck Exam: Lymph Nodes, Lips, Palate, Buccal Mucosa, Floor of Mouth, Tongue, Tonsils, Alveolar Ridges, Oropharynx, Salivary Ducts, and Vestibules normal appearance Details: Skin WNL OCS: negative Dental Exam As charted Indicate to extract at least t#s 7,10 due to severe attrition . However , Toni deferred for now, he declined also the recommendation of cleaning and fabrication of new partial / denture. Pt stated he would call when he is ready. Reference tooth chart for additional findings. Oral Cancer Risk: Low Risk Oral Hygiene Instructions: Dozier two times daily, modified fitzgerald technique, Floss daily, Electric toothbrush, Soft bristle toothbrush, Dozier Tongue Caries Risk Assessment: Low- no risk factor Assessment/Plan Patient tolerated procedure well, all questions answered and expressed understanding. Dismissed in good condition. NV: Delivery REPAIR only Annual Greenhouse Manager: Prema [place] Dentist: Gareth Fox DDS documented in this encounter Plan of Treatment Scheduled Orders Name Type Priority Associated Diagnoses Orde r Schedule 18,19,30,31 18,19,30,31 MANDIBULAR PARTIAL DENTURE - RESIN BASE (INCLUDING, RETENTIVE/CLASPING MATERIALS, RESTS, AND TEETH) Dental Routine [address] arting 09/05/2024 documented as of this encounter Goals Goal Patient Goal Type Associated Problems Recent Progress Patient-Stated? Author Blood Pressure < 140/90 Blood Pressure 146/80( 025 1:51 PM EST) No Javier Benton, PharmD documented as of this encounter Procedures Procedure Name Priority Date/Time Associated Diagnosis Comments PERIODIC ORAL EVALUATION - ESTABLISHED PATIENT Routine 09/05/2024 1:30 PM EST PANORAMIC RADIOGRAPHIC IMAGE Routine 09/05/2024 1:30 PM EST CASE PRESENTATION, DETAILED AND EXTENSIVE TREATMENT PLANNING Routine 09/05/2024 1:30 PM EST documented in this encounter Visit Diagnoses Diagnosis Excessive attrition of teeth, 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- Primary Dental plaque Accretions on teeth Missing teeth, acquired documented in this encounter Additional Health Concerns Assessment Noted Time PHQ-9 Depression Total Score: 1 08/13/19 25 3:11 PM EST documented as of this encounter Care Teams Publicity Director Relationship Specialty Start Date End Date Jolly London MD [address] [place] [address] PCP - General Family Medicine 06/29/12 Javier Benton, AreliD [address] [place] [address] Pharmacist Internal Medicine 01/14/23 documented as of this encounter
--- OUTSIDE RECORDS SUMMARY | 2024-09-17 16:01 | XMS_ITS | Encounter Summary ---
Author Organization [employer] Address [address] [facility] 7t [place] [address] Care Team Providers Care Senior Web Developer Name Role Phone Jolly London MD Primary Care Provider [phone] Javier Benton PharmD Unavailable [phone] Reason for Visit * Reason Comments Med Refill Encounter Details Date Type Department Care Team ([facility] st Contact Info) Description 03/11/2024 Refill [facility] MEDICINE [address] [place] [address] Jolly London MD [address] [place], [place] [phone] Helicobacter pylori gastrointestinal tract infection Social History Tobacco Use Types Packs/Day Years [...] as of this encounter Visit Diagnoses Diagnosis Helicobacter pylori gastrointestinal tract infection Intestinal infection due to other gram-negative bacteria documented in this encounter Additional Health Concerns Assessment Noted Time PHQ-9 Depression Total Score: 0 02/15/20 23 1:30 PM EDT documented as of this encounter Care Teams Senior Web Developer Relationship Specialty Start Date End Date Jolly London MD [address] [place] [address] PCP - General Family Medicine 06/29/12 Javier Benton, AreliD [address] [place] [address] Pharmacist Internal Medicine 01/14/23 documented as of this encounter
--- OUTSIDE RECORDS SUMMARY | 2024-09-17 16:01 | XMS_ITS | Encounter Summary ---
Author Organization [employer] Address [address] [place] [address] 7t [place] [address] Care Team Providers Care Golf Professional Name Role Phone Jolly London MD Primary Care Provider [phone] Javier Benton PharmD Unavailable [phone] Reason for Visit * Reason Comments Med Refill Encounter Details Date Type Department Care Team ([facility] st Contact Info) Description 10/14/2022 Refill [facility] [address] [place] [address] Ximena Harkins FNP [address] [place] [address] Dept [place] [address] Social History Tobacco Use Types Packs/Day Years Used Date Smoking Tobacco: Never Passive Smoke Exposure: Never Smokeless Tobacco: Never Sex and Gender Information Value Date Recorded Sex Assigned at Male 05/17/2022 10:15 AM EDT Legal Sex Male 10:15 AM EDT Gender Identity Male 05/17/2022 10:15 AM EDT Sexual Orientation Straight 05/17/2022 10 :15 AM EDT COVID-19 Exposure Response Date Recorded In the last 10 days, have yo u been in contact with someone who was confirmed or suspected to have Coronavirus/COVID-19? No / Unsure 10/07/2022 12:59 PM EDT documented as of this encounter Plan of Treatment Not on file documented as of this encounter Visit Diagnoses Not on filedocumented in this encounter Care Teams Golf Professional Relationship Specialty Start Date End Date Jolly London MD [address] [place], [place] [phone] PCP - General Family Medicine 06/29/12 Javier Benton, PharmD [address] [place] [phone] Pharmacist Internal Medicine 01/14/23 documented as of this encounter
--- OUTSIDE RECORDS SUMMARY | 2024-09-17 16:01 | XMS_ITS | Encounter Summary ---
Author Organization [employer] Address [address] [facility] 7t [place] [address] Care Team Providers Care Power Hammer Operator Name Role Phone Jolly London MD Primary Care Provider Javier Benton PharmD Unavailable [phone] Reason for Referral * Consultation (Routine) - Authorized Specialty Diagnoses / Procedures Referred By Contac t Referred To Contact Pharmacy Diagnoses Primary hypertension Type 2 diabetes mellitus with hyperglycemia, without long-term current use of insulin (CMS/HCC) Jolly London MD [address] [place] [address] Phone: tel: fax: Referral ID Status Reason Start Date Expiration Date Visits Requested Visits Authorized [id number] Authorized Consult and Treat 05/29/2024 05/29/2025 6 6 Encounter Details Date Type Department Care Team (Late st Contact Info) Description 05/29/2024 Orders Only [facility] MED[facility] [address] [place] [address] Jolly London MD [address] [place], [place] [phone] Primary hypertension (Primary Dx); Type 2 diabetes mellitus with hyperglycemia, without long-term current use of insulin (CMS/HCC) Social History Tobacco Use Types Packs/Day Years [...] of this encounter Plan of Treatment Scheduled Referrals Name Type Priority Associated Diagnoses Orde r Schedule Referral to Pharmacy CDTM Outpatient Referral Routine Primary hypertension Type 2 diabetes mellitus with hyperglycemia, without long-term current use of insulin (CMS/[facility]) Ordered: 05/29/2024 documented as of this encounter Goals Goal Patient Goal Type Associated Problems Recent Progress Patient-Stated? Author Blood Pressure < 140/90 Blood Pressure 146/80( 025 1:51 PM EST) No Javier Benton, Marc documented as of this encounter Visit Diagnoses Diagnosis Primary hypertension- Primary Unspecified essential hypertension Type 2 diabetes mellitus with hyperglycemia, without long-term current use of insulin (CMS/HCC) documented in this encounter Additional Health Concerns Assessment Noted Time PHQ-9 Depression Total Score: 0 02/15/20 23 1:30 PM EDT documented as of this encounter Care Teams Power Hammer Operator Relationship Specialty Start Date End Date Jolly London MD [address] [place] [address] [place] [address] PCP - General Family Medicine 06/29/12 Javier Benton, Marc [address] [place] [address] Pharmacist Internal Medicine 01/14/23 documented as of this encounter
--- OUTSIDE RECORDS SUMMARY | 2024-09-17 16:02 | XMS_ITS | Encounter Summary ---
Author Organization [employer] Address [address] [facility] 7t [place] [address] Care Team Providers Care Transformer Tester Name Role Phone Jolly London MD Primary Care Provider [phone] Javier Benton PharmD Unavailable [phone] Reason for Visit * Reason Comments Dentures Encounter Details Date Type Department Care Team ([facility] st Contact Info) Description 09/07/2024 2:00 PM EST Office Visit [facility] [address] [place] [address] Gareth Fox, DDS [address] [place], [place] [phone] Partial edentulism, unspecified edentulism class (Primary Dx) Social History Tobacco Use Types Packs/Day Years [...] AM EDT documented as of this encounter Progress Notes * Gareth Fox DDS - 09/07/2024 2:00 PM EST Patient ID: Toni Meehan is a 88 y.o. male. Time Out: Timeout Date: 09/07/24, Timeout Time: 1408 (denture repair delivery) Location: [facility] Tooth: Maxilla Procedure: Dentures Verified the above with patient, assistant professor of business, and provider. Confirmed via patient's chart, intraorally and by radiographs. Can Closing Machine Operator: not applicable Chief Complaint Patient presents with Dentures Medical Hx: Vitals: There were no vitals taken for this visit. Medications, Med Hx reviewed with patient and updated in chart. Consent Obtained: The risks, benefits, indications, potential complications, and alternatives were explained to the patient and informed consent was obtained with good understanding. Treatment Provided: Dental procedures in this visit D9450 - CASE PRESENTATION, DETAILED AND EXTENSIVE TREATMENT PLANNING (Completed) Service provider: Gareth Fox DDS Billing provider: Gareth Fox DDS D5612 - REPAIR RESIN PARTIAL DENTURE BASE, MAX (Completed) Service provider: Gareth Fox DDS Billing provider: Gareth Fox DDS D5660 - ADD CLASP TO EXISTING PARTIAL DENTURE - PER TOOTH 2 (Completed) Service provider: Gareth Fox DDS Billing provider: Gareth Fox DDS D5660 - ADD CLASP TO EXISTING PARTIAL DENTURE - PER TOOTH 12 (Completed) Service provider: Gareth Fox DDS Billing provider: Gareth Fox DDS Tried in denture(s) -Evaluated for comfort, fit, phonetics, and stability (f, v, s, th sounds; swallow, yawn, etc) -Evaluated for satisfactory esthetics. -Occlusion verified; adjustments made as necessary. Patient has received information sheet for denture care and expectations. Pt was provided with denture case and denture brush. NV: 6 mos Vertical Punch Operator: Prema Bermudez Dentist: Gareth Fox DDS de documented in this encounter Plan of Treatment Not on file documented as of this encounter Goals Goal Patient Goal Type Associated Problems Recent Progress Patient-Stated? Author Blood Pressure < 140/90 Blood Pressure 146/80( 025 1:51 PM EST) No Javier Benton, Marc documented as of this encounter Procedures Procedure Name Priority Date/Time Associated Diagnosis Comments REPAIR RESIN PARTIAL DENTURE BASE, MAX Routine 09/07/2024 2:00 PM EST CASE PRESENTATION, DETAILED AND EXTENSIVE TREATMENT PLANNING Routine 09/07/2024 2:00 PM EST 12 ADD CLASP TO EXISTING PARTIAL DENTURE - PER TOOTH Routine 09/07/2024 2:00 PM EST 2 ADD CLASP TO EXISTING PARTIAL DENTURE - PER TOOTH Routine 09/07/2024 2:00 PM EST 3,8,9,13,15 PARTIAL DENTURE - CAST METAL Routine 09/07/2024 12:00 AM EST documented in this encounter Visit Diagnoses Diagnosis Partial edentulism, unspecified edentulism class- Primary documented in this encounter Additional Health Concerns Assessment Noted Time PHQ-9 Depression Total Score: 1 08/13/19 25 3:11 PM EST documented as of this encounter Care Teams Transformer Tester Relationship Specialty Start Date End Date Jolly London MD [address] [place] [address] PCP - General Family Medicine 06/29/12 Javier Benton, AreliD [address] [place] [phone] Pharmacist Internal Medicine 01/14/23 documented as of this encounter
--- OUTSIDE RECORDS SUMMARY | 2024-09-17 16:02 | XMS_ITS | Encounter Summary ---
Author Organization [employer] Address [address] [facility] 7t [place] [address] Care Team Providers Care Microarray Operations Vice President Name Role Phone Jolly London MD Primary Care Provider [phone] Javier Benton PharmD Unavailable [phone] Encounter Details Date Type Department Care Team (Late st Contact Info) Description 09/17/2024 Orders Only [facility] External Provider, [facility] Social History Tobacco Use Types Packs/Day Years [...] TROPONIN I Routine 09/17/2024 1:26 PM EST CBC WITH AUTO DIFFERENTIAL Routine 09/17/2024 1:26 PM EST APTT Routine 09/17/2024 1:26 PM EST PROTHROMBIN TIME-INR Routine 09/17/2024 1:26 PM EST LIPID PANEL, STANDARD Routine 09/17/2024 1:26 PM EST BASIC METABOLIC PANEL Routine 09/17/2024 1:26 PM EST GLUCOSE, WHOLE [...] WO CONTRAST Routine 09/17/2024 12:56 PM EST documented in this encounter Results * High Sensitivity Troponin I (09/17/2024 1:26 PM EST) TROPONIN I HIGH SENSITIVITY <2.7 <3.5 - 35.0 ng/L [facility] Comment:The Manuel high sens itivity Troponin-I results should beused in conjunction with other diagnostic information suchas ECG, clinical observations and information, and patientsymptoms to aid in the diagnosis of [place]. 09/17/2024 1:26 PM EST 09/17/2024 1:34 PM EST us Generic External Data Provider LAB BLOOD ORDERAB LES Final Result [facility] [address] [place] [address] [phone] * Lipid Panel, Standard (09/17/2024 1:26 PM EST) Triglycerides 120 <150 mg/dL [facility] Comment:Desirable Triglyceri de: less than 150 mg/dLBorderline High Triglyceride 150-199 mg/dLHigh Triglyceride: 200-499 mg/dLVery High Triglyceride: greater than or equal to 5OO mg/dL Cholesterol 113 <200 mg/dL [facility] Comment:Desirable Cholestero l: less than 200 mg/dLBorderline High Cholesterol: 200-239 mg/dLHigh Cholesterol: greater than 239 mg/dL LDL Cholesterol Calculated 47 <100 mg/dL [facility] Comment:Desirable LDL: less than 100 mg/dLNear Optimal/Above Optimal LDL: 110- 129 mg/dLBorderline High LDL: 130-159 mg/dLHigh LDL: 160-189 mg/dLVery High LDL: greater than or equal to 190 mg/dL HDL Cholesterol 42 >40 mg/dL [facility] Comment:Desirable HDL: great er than 40 mg/dL Note: This HDL assay may give artificially low results in patients with liver disease. 09/17/2024 1:26 PM EST 09/17/2024 1:34 PM EST us Generic External Data Provider LAB BLOOD ORDERAB LES Final Result Performing Organization Address City/[facility]/ZIP Co de Phone Number [facility] [address] [place] [phone] * (ABNORMAL) Basic Metabolic Panel (09/17/2024 1:26 PM EST) Sodium 139 135 - 145 mmol/L [facility] Potassium 4.1 3.3 - 5.1 mmol/L [facility] Chloride 108 96 - 108 mmol/L [facility] Carbon Dioxide 22 22 - 29 mmol/L [facility] Anion Gap 13 12 - 20 [facility] Urea Nitrogen (BUN) 21(H) 9 - 16 mg/dL [facility] Creatinine, Serum 1.18 0.5 - 1.4 mg/dL [facility] Creatinine Clr Calc Pharmacy 42.3 [facility] Comment:eGFR (calculated fro m the MDRD study equation) and eCrCl(calculated from the Cockcroft-Gault equation) are based ondifferent parameters and may not yield comparable results.If eCrCl result is absurd, please check patient'sheight/weight. Estimated Glomerular Filt Rate 59 [facility] Comment:Chronic Kidney Disea se: Estimated GFR < 60 mL/min/[id number] Kidney Disease: Estimated GFR < 15 mL/min/1.73m2 Glucose 249(H) 60 - 115 mg/dL [facility] Calcium 9.2 8.4 - 10.2 mg/dL [facility] 09/17/2024 1:26 PM EST 09/17/2024 1:34 PM EST us Generic External Data Provider LAB BLOOD ORDERAB LES Final Result Performing Organization Address City/[facility]/ZIP Co de Phone Number [facility] [address] [place] [address] [phone] * Partial Thromboplastin Time, Activated (APTT) (09/17/2024 1:26 PM EST) Partial Thromboplastin Time 33.9 26.0 - 36.8 SEC [facility] Comment:For information rega rding the monitoring of direct thrombininhibitors, please refer to Pharmacy. 09/17/2024 1:26 PM EST 09/17/2024 1:34 PM EST Generic External Data Provider LAB BLOOD ORDERAB LES Final Result Performing Organization Address [facility] Co de Phone Number [facility] [address] [place] [address] [phone] * (ABNORMAL) Prothrombin Time-INR (09/17/2024 1:26 PM EST) Pathologist [facility] Prothrombin Time 10.5(L) 10.9 - 12.4 SEC [facility] INTERNATIONAL NORM RATIO 0.9 0.9 - 1.1 [facility] Comment:INTERNATIONAL NORMAL IZED RATIO (INR) REFERENCE [...] 1:26 PM EST 09/17/2024 1:34 PM EST Generic External Data Provider LAB BLOOD ORDERAB LES Final Result Performing Organization Address [facility] Co de Phone Number [facility] [address] [place] [address] [phone] * (ABNORMAL) CBC auto differential (09/17/2024 1:26 PM EST) White Blood Count 5.9 4.8 - 10.8 X10*3/uL [facility] Red Blood Count 3.97(L) 4.60 - 5.80 X10*6/uL [facility] Hemoglobin 10.8(L) 14.0 - 18.0 g/dl [facility] Hematocrit 33.4(L) 42.0 - 52.0 % [facility] Mean Corpuscular Volume 84.1 80.0 - 98.0 fL [facility] Mean Corpuscular Hemoglobin 27.2 27.0 - 33.0 pg [facility] Mean Corpuscular HGB Conc 32.3 31.0 - 36.0 g/dl [facility] Red Cell Distribution Width 17.6(H) 11.0 - 16.0 % [facility] Platelet Count 223 160 - 400 X10*3/uL [facility] Mean Platelet Volume 10.4 9.4 - 12.4 fL [facility] Neutrophils Percent Auto 86.1(H) 45 - 73 % [facility] Imm Gran Pct Auto 0.5(H) 0.0 - 0.4 % [facility] Lymphocytes Percent Auto 5.7(L) 20 - 40 % [facility] Monocytes Percent Auto 7.3 2 - 11 % [facility] Eosinophils Percent Auto 0.2 0 - 4 % [facility] Basophils Percent Auto 0.2 0 - 2 % [facility] NRBC Pct Auto 0.0 0.0 - 0.2 /100WBC [facility] Neutrophils Absolute Auto 5.1 2.0 - 8.3 x10*3/uL [facility] Imm Gran Abs Auto 0.03 0.00 - 0.03 X10*3/uL [facility] Lymphocytes Absolute Auto 0.3(L) 1.2 - 4.9 X10*3/uL [facility] Monocytes Absolute Auto 0.4 0.1 - 1.2 X10*3/uL [facility] Eosinophils Absolute Auto 0.0 0.0 - 0.4 X10*3/uL [facility] Basophils Absolute Auto 0.0 0.0 - 0.2 X10*3/uL [facility] NRBC Abs Auto 0.000 0.0 - 0.012 X10*3/uL [facility] 09/17/2024 1:26 PM EST 09/17/2024 1:34 PM EST us Generic External Data Provider LAB BLOOD ORDERAB LES Final Result Performing Organization Address [facility] Co de Phone Number [facility] [address] [place] [phone] * (ABNORMAL) Glucose, Whole Blood (09/17/2024 1:24 PM EST) Pathologist [facility] Glucose, Whole Blood 233(H) 60 - 115 mg/dL [facility] Comment:METER #: [id number] 09/17/2024 1:24 PM EST 09/17/2024 1:31 PM EST us Generic External Data Provider LAB BLOOD ORDERAB LES Final Result Performing Organization Address [facility] Co de Phone Number [facility] [address] [place] [phone] * PROTHROMBIN TIME WHOLE BLD POC (09/17/2024 1:24 PM EST) Pathologist [facility] Protime 11.3 11.1 - 13.5 sec [facility] 09/17/2024 1:24 PM EST 09/17/2024 1:29 PM EST us Generic External Data Provider LAB BLOOD ORDERAB LES Final Result Performing Organization Address [facility] Co de Phone Number [facility] [address] [place] [phone] * ~PT, ~INR - ANTI COAG CLINIC (09/17/2024 1:24 PM EST) Prothrombin Time INR 0.9 0.9 - 1.1 [facility] Comment:METER #: [id number] TERNATIONAL NORMALIZED RATIO (INR) REFERENCE RANGES Reference [...] Provider LAB BLOOD ORDERAB LES Final Result [facility] [address] [place], [place] [phone] * XR Chest 1 View (09/17/2024 1:00 PM EST) Anatomical Region Laterality Modality Chest Radiographic Edilia ging 09/17/2024 1:00 PM EST Narrative 09/17/2024 1:28 PM EST ? [facility] ?[address] ?[place] [address] ?XRay Report ? Signed ? Patient: Toni Keys ? MR#: [id number] ? : 1935 ?Acct:[id number] ? Age/Sex: 88 / M ?ADM Date: 09/17/24 ? Loc: HO.ED ? Attending Dr: ? Ordering Physician: Jesusita Szymanski ?? Date of Service: 09/17/24 ?? Procedure(s): XR chest 1V ?? Accession Number(s): [id number] ? cc: Jesusita Szymanski; Jolly London MD ? EXAMINATION: ?? XR CHEST ? [...] 01:26 PM EST RP ? Dictated By: ?Gavi,Kunal S MD ? Signed By: ?<Electronically signed by Kunal Gatica MD in OV> ?09/17/24 1326 ? DD/ 1300 ? TD/TT: 09/17/24 1305 ? Eeg Technician: ELIZABETH ? Procedure Note DonIsai luciano - 09/17/[address] [address] XRay Report Signed Patient: Toni Keys MR#: [id number] : 8Acct:[id number] Age/Sex: 88 / MADM Date: 09/17/24 Loc: .ED Attending Dr: Ordering Physician: Jesusita Szymanski Date of Service: 09/17/24 Procedure(s): XR chest 1V Accession Number(s): [id number] cc: Jesusita Szymanski; Jolly London MD EXAMINATION: XR CHEST CLINICAL INFORMATION: Stroke Protocol COMPARISON: Chest x-ray 01/25/2024 TECHNIQUE: Frontal view of the chest was obtained. FINDINGS: No significant abnormality is noted involving the heart, lungs, mediastinum, bony thorax or soft tissues. XR/XR chest 1V IMPRESSION: Unremarkable chest examination. Electronically signed by: Kunal Gatica MD 09/17/2024 01:26 PM EST Dictated By: Kunal Gatica MD Signed By: <Electronically signed by Kunal Gatica MD in OV> 09/17/24 1326 DD/ 1300 TD/TT: 09/17/24 1305 Eeg Technician: ELIZABETH [facility] External Provider IMG XR PROCEDURES Final Result * CTA Head Stroke w/ and w/o Contrast (09/17/2024 12:58 PM EST) Anatomical Region Laterality Modality Computed Tomogra phy 09/17/2024 12:5 8 PM EST Narrative 09/17/2024 1:29 PM EST ? [facility] ?[address] ?[place] [address] ? CT Scan Report ? Signed ? Patient: Cardenas Meehan,Toni ? MR#: [id number] ? : 1935 ?Acct:[id number] ? Age/Sex: 88 / M ?ADM Date: 09/17/24 ? Loc: HO.ED ? Attending Dr: ? Ordering Physician: Jesusita Szymanski ?? Date of Service: 09/17/24 ?? Procedure(s): CT angio head neck STROKE ?? Accession Number(s): [id number] ? cc: Jesusita Szymanski; Jolly London MD ? Report Number: ?? [id number]: Total DLP = ??641.00 mGy-cm ?? EXAMINATION: [...] hemodynamically significant stenosis, or aneurysm. ?? Right IN HOME SALES CONSULTANT: ??There is no large vessel occlusion, hemodynamically ?? significant stenosis, or aneurysm. ?? Left IN HOME SALES CONSULTANT: ??There is no large vessel occlusion, hemodynamically [...] ??Jossue Phan MD ??09/17/2024 01:26 PM EST ?? RP ? Dictated By: ?Jossue Phan MD ? Signed By: ?<Electronically signed by Jossue Phan MD in OV> ?09/17/24 1326 ? DD/ 1258 ? TD/TT: 09/17/24 1315 ? Eeg Technician: ? Procedure Note Donotuseinterpreter, Image - 09/17/[address] [address] [address] Scan Report Signed Patient: Toni Keys MR#: [id number] : 8Acct:[id number] Age/Sex: 88 / MADM Date: 09/17/24 Loc: HO.ED Attending Dr: Ordering Physician: Jesusita Szymanski Date of Service: 09/17/24 Procedure(s): CT angio head neck STROKE Accession Number(s): [id number] cc: Jesusita Szymanski; Jolly London MD Report Number: [id number]: Total DLP = 641.00 mGy-cm EXAMINATION: CT [...] occlusion, hemodynamically significant stenosis, or aneurysm. Right IN HOME SALES CONSULTANT: There is no large vessel occlusion, hemodynamically significant stenosis, or aneurysm. Left IN HOME SALES CONSULTANT: There is no large vessel occlusion, hemodynamically [...] 09/17/24 1326 DD/ 1258 TD/TT: 09/17/24 1315 Eeg Technician: [facility] External Provider IMG CT PROCEDURES Final Result * CT Head Stroke w/o Contrast (09/17/2024 12:56 PM EST) Anatomical Region Laterality Modality Computed Tomogra phy 09/17/2024 12:5 6 PM EST Narrative 09/17/2024 1:15 PM EST ? [facility] ?[address] ?[place] [address] ? CT Scan Report ? Signed ? Patient: Cardenas Meehan,Toni ? MR#: [id number] ? : 1935 ?Acct:[id number] ? Age/Sex: 88 / M ?ADM Date: 09/17/24 ? Loc: HO.ED ? Attending Dr: ? Ordering Physician: Jesusita Szymanski ?? Date of Service: 09/17/24 ?? Procedure(s): CT head for STROKE ?? Accession Number(s): [id number] ? cc: Jesusita Szymanski; Jolly London MD ? Report Number: ?? [id number]: Total DLP = ??629.00 mGy-cm ?? EXAMINATION: [...] signed by Jossue Phan MD in OV> ?09/17/242 ? DD/ 1256 ? TD/TT: 09/17/24 1308 ? Eeg Technician: ? Procedure Note Donotkatalinater, Image - 09/17/[address] [place] [address] [address] Scan Report Signed Patient: Toni Keys MR#: [id number] : 8Acct:[id number] Age/Sex: 88 / MADM Date: 09/17/24 Loc: HO.ED Attending Dr: Ordering Physician: Jesusita Szymanski Date of Service: 09/17/24 Procedure(s): CT head for STROKE Accession Number(s): [id number] cc: Jesusita Szymanski; Jolly London MD Report Number: [id number]: Total DLP = 629.00 mGy-cm EXAMINATION: CT [...] acute intracranial abnormality. Electronically signed by: Jossue hPan MD 09/17/2024 01:12 PM EST RP Dictated By: Jossue Phan MD Signed By: <Electronically signed by Jossue Phan MD in OV> 09/17/24 1312 DD/ 1256 TD/TT: 09/17/24 1308 Eeg Technician: [facility] External Provider IMG CT PROCEDURES Final Result documented in this encounter Visit Diagnoses Not on filedocumented in this encounter Additional Health Concerns Assessment Noted Time PHQ-9 Depression Total Score: 1 08/13/19 25 3:11 PM EST documented as of this encounter Care Teams Microarray Operations Vice President Relationship Specialty Start Date End Date Jolly London MD [address] [place] [address] PCP - General Family Medicine 06/29/12 Javier Benton PharmD [address] [place] [address] Pharmacist Internal Medicine 01/14/23 documented as of this encounter
--- OUTSIDE RECORDS SUMMARY | 2024-09-17 16:02 | XMS_ITS | Encounter Summary ---
Author Organization [employer] Address [address] [facility] [address] [place] [address] Care Team Providers Care Industrial Machine System Technician Name Role Phone Jolly London MD Primary Care Provider [phone] Javier Benton PharmD Unavailable [phone] Encounter Details Date Type Department Care Team (Late st Contact Info) Description 08/23/2024 Abstract [facility] MEDICINE [address] [place] [address] Melissa Ashraf MA Social History Tobacco Use Types Packs/Day Years Used Date Smoking Tobacco: Former Cigarettes Passive Smoke Exposure: Never Smokeless Tobacco: Never Depression Answer Date Recorded Patient Health Questionnaire-9 Score 1 08/13/2024 Patient Health Questionnaire-9 Score 1 08/13/2024 Last PHQ-9: Questionnaire Data Not on file 0 08/13/2024 Housing Stability Answer Date Recorded What is your housing situation today? I have conradadelfo nolan 10/07/[address] you [...] Procedure Name Priority Date/Time Associated Diagnosis Comments DIABETES EYE EXAM Routine 12/08/2023 documented in this encounter Results * Diabetes Eye Exam (12/08/2023) Eye Exam Normal Normal 12/08/2023 us Historical Provider HEALTH MAINTENANCE Final Result documented in this encounter Visit Diagnoses Not on filedocumented in this encounter Additional Health Concerns Assessment Noted Time PHQ-9 Depression Total Score: 1 08/13/19 25 3:11 PM EST documented as of this encounter Care Teams Industrial Machine System Technician Relationship Specialty Start Date End Date Jolly London MD [address] [place] [address] PCP - General Family Medicine 06/29/12 Javier Benton, AreliD [address] [place] [address] Pharmacist Internal Medicine 01/14/23 documented as of this encounter
--- OUTSIDE RECORDS SUMMARY | 2024-09-17 16:02 | XMS_ITS | Encounter Summary ---
Author Organization [employer] Address [address] [facility] [address] [place] [address] Care Team Providers Care Shuttle Inspector Name Role Phone Jolly London MD Primary Care Provider [phone] Javier Benton PharmD Unavailable [phone] Encounter Details Date Type Department Care Team (Late st Contact Info) Description 06/07/[address] [facility] MEDICINE [address] [place] [address] Jolly Lodnon MD [address] [place] [address] Social History Tobacco Use Types Packs/Day Years Used Date Smoking Tobacco: Never Assessed Sex and Gender Information Value Date Recorded Sex Assigned at Male 05/17/2022 10:15 AM EDT Legal Sex Male 10:15 AM EDT Gender Identity Male 05/17/2022 10:15 AM EDT Sexual Orientation Straight 05/17/2022 10 :15 AM EDT documented as of this encounter Plan of Treatment Not on file documented as of this encounter Visit Diagnoses Not on filedocumented in this encounter Care Teams Shuttle Inspector Relationship Specialty Start Date End Date Jolly London MD [address] [place], [place] [id number] PCP - General Family Medicine 06/29/12 Javier Benton, PharmD [address] [place] [address] [id number] Pharmacist Internal Medicine 01/14/23 documented as of this encounter
--- NOTE | 2024-09-17 16:42 | PHA.MEDREC ---
Addendum entered by Deedee Smith RPh 09/17/24 16:49: reviewed by [facility]. Original Note: Pharmacy Consult ? Medication Reconciliation Pharmacy has completed the medication reconciliation. Spoke with patient utilizing interpreter translator and he has his Med Box on hand I was able to use to confirm patients medications. Patient has not taken any medications since Tuesday morning.
[2024-09-17 17:05] VITALS: BP 122/65; PULSE 80; RESP 16; TEMP 36.8; O2SAT 98
[2024-09-17 18:20] LABS: Glucose, Whole Blood 124 mg/dL (60-115)
[2024-09-17 20:16] VITALS: BP 122/74; PULSE 89; RESP 21; TEMP 36.6; O2SAT 98
[2024-09-17 20:22] LABS: Glucose, Whole Blood 157 mg/dL (60-115)
[2024-09-17 21:17] LABS: Glucose, Whole Blood 131 mg/dL (60-115)
[2024-09-17 23:46] VITALS: BP 137/65; PULSE 85; RESP 18; TEMP 36.7; O2SAT 98
[2024-09-18] MEDS: 0.9 % Sodium Chloride Flush 3 ML SYRINGE IVFLUSH ×2 (01:45→08:33)
[2024-09-18 03:43] VITALS: BP 119/72; PULSE 83; RESP 18; TEMP 36.6; O2SAT 98
[2024-09-18 07:37] LABS: Glucose, Whole Blood 145 mg/dL (60-115)
--- NOTE | 2024-09-18 08:10 | P.DS_ITS ---
DS: Providers Provider Date of Service: 09/18/24 Date of admission: 09/17/24 14:52 Date of discharge: 09/18/24 Primary care physician: Jolly London MD Attending physician on admission: Ministerio Chaney Consults: 09/17/24 14:46 Consult to Neurology Routine Consulting Provider: [facility] Reason for consultation: visual changes Attending physician on discharge: Ministerio Chaney Discharging clinician: Amanda Monge DS: Summary Hospital Course Hospital Course: HPI on admission by Dr. Chaney 09/17: Chief Complaint: left eye visual changes The patient is a 88-year-old male with a past medical history of prostate cancer, diabetes, hypertension, hyperlipidemia who presents to the emergency room with complaints of left eye visual changes which began the morning of arrival. The patient is Citizen [place]-speaking and hence the history is obtained with the help of a Citizen [place]-speaking parts delivery driver. Despite this, the patient remains a vague historian. He states that this morning woke up feeling nauseous. He states that he retched several times but was unable to vomit. He says subsequently he noticed that his left eye felt different than his right eye. After probing multiple ways, the p atient finally states that the left eye was blurry. He states that he has never had this type of syndrome. He denies any associated focal weakness. Denies any changes to his speech. He reports that due to the left eye blurriness he presented to the emergency room. In the ED, the patient underwent a CT head and CTA head and neck which were both negative for acute findings. His case was discussed with the neurologist. The ED provider felt presentation was possibly a TIA and hence the patient will now be placed under observation. The patient reports resolution of his symptoms. Hospital course: Hospital course uneventful. Patient admitted with complaints of left eye visual changes which had completely resolved by admission. He did not have any recurrence of symptoms. He was evaluated by Neurology who suspected this was an ophthalmologic issue such as a migraine or ischemic neuropathy he did recommend noncontrast MRI of the brain but this was unable to be obtained due to penile implant. Case read discussed with Neurology recommending discharge given low suspicion for TIA/CVA. He is recommended to follow-up with Ophthalmology soon. He should continue on aspirin 81 mg daily and current dose of atorvastatin 20 mg nightly. Given diagnosis of TIA/CVA is unlikely, we will continue current dose of atorvastatin. He will be discharged home and is recommended for follow-up w [facility] ophthalmology and PCP. Throughout admission vital signs remained stable, no significant hypertension. Hematology studies showed a normocytic anemia likely related to chronic disease in the setting of CKD stage 3. Glucose levels remained controlled and were managed with insulin. On discharge, he can resume metformin and Actos. Continue amlodipine for hypertension. He will continue mirabegron for neurogenic bladder. Time Attestation Discharge Coordination Time (in mins): 35 Quality: Safe Use of Opioids Does Pt have an Active Cancer Diagnosis on the Problem List?: No Quality: Stroke Does the patient have a stroke diagnosis?: No Physical Exam Vital Signs: Vital Signs: Last Vital Signs Temp 97.9 F 09/18/24 03:43 Pulse 83 09/18/24 03:43 Resp 18 09/18/24 03:43 BP 119/72 09/18/24 03:43 Pulse Ox 98 09/18/24 03:43 O2 Del Method Room Air 09/18/24 03:43 BMI result Body Mass Index 29.4 DS: Data Data Completed and Pending Completed studies during hospitalization [Text1]: Procedures Insertion of Infusion Device into Left Brachial Vein, Percutaneous Approach (02/17/24) Labs on day of discharge: Laboratory Results - last 24 hr 09/17/24 09/17/24 09/17/24 13:24 13:26 18:17 WBC 5.9 RBC 3.97 L Hgb 10.8 L Hct 33.4 L MCV 84.1 MCH 27.2 MCHC 32.3 RDW 17.6 H Plt Count 223 MPV 10.4 Immature Gran % (Auto) 0.5 H Neut % (Auto) 86.1 H Lymph % (Auto) 5.7 L Dewey % (Auto) 7.3 Eos % (Auto) 0.2 Baso % (Auto) 0.2 Lymph # (Auto) 0.3 L Dewey # (Auto) 0.4 Eos # (Auto) 0.0 Baso # (Auto) 0.0 Abs Immat Gran (auto) 0.03 Absolute Neuts (auto) 5.1 Absolute Nucleated RBC 0.000 Nucleated RBC % (auto) 0.0 PT 10.5 L Whole Blood PT 11.3 INR 0.9 Whole Blood INR 0.9 APTT 33.9 Sodium 139 Potassium 4.1 Chloride 108 Carbon Dioxide 22 Anion Gap 13 BUN 21 H Creatinine 1.18 Estim Creat Clear Calc 42.3 Estimated GFR 59 POC Glucose 233 H 124 H Random Glucose 249 H Calcium 9.2 Troponin I High Sens < 2.7 Triglycerides 120 Cholesterol 113 LDL Cholesterol, Calc 47 HDL Cholesterol 42 09/17/24 09/17/24 09/18/24 20:15 21:14 07:32 WBC RBC Hgb Hct MCV MCH MCHC RDW Plt Count MPV Immature Gran % (Auto) Neut % (Auto) Lymph % (Auto) Dewey % (Auto) Eos % (Auto) Baso % (Auto) Lymph # (Auto) Dewey # (Auto) Eos # (Auto) Baso # (Auto) Abs Immat Gran (auto) Absolute Neuts (auto) Absolute Nucleated RBC Nucleated RBC % (auto) PT Whole Blood PT INR Whole Blood INR APTT Sodium Potassium Chloride Carbon Dioxide Anion Gap BUN Creatinine Estim Creat Clear Calc Estimated GFR POC Glucose 157 H 131 H 145 H Random Glucose Calcium Troponin I High Sens Triglycerides Cholesterol LDL Cholesterol, Calc HDL Cholesterol Discharge Plan Discharge Anticipated Discharge Date/Time: 09/18/24 14:32 Patient Disposition: Home, Self-Care Referrals: Jolly London MD [Primary Care Provider] - 1 Week Discharge Medications: Continued cyanocobalamin (vitamin B-12) 1,000 mcg tablet 1,000 mcg PO BEDTIME ascorbic acid (vitamin C) [Vitamin C] 500 mg tablet 500 mg PO BEDTIME metformin 750 mg tablet extended release 24 hr 750 mg PO BIDWM@1200,1700 magnesium oxide 400 mg (241.3 mg magnesium) tablet 400 mg PO DAILY@1200 aspirin 81 mg tablet,delayed release (DR/EC) 81 mg PO DAILY amlodipine 5 mg tablet 5 mg PO DAILY (DME) lancets [TRUEplus Lancets] 33 gauge misc See Rx Instructions .ROUTE .MEDSUPPLY Qty: 100 Rx Instructions: As directed (DME) FreeStyle Lite Strips Strip See Rx Instructions .ROUTE .MEDSUPPLY Qty: 10 Rx Instructions: As directed atorvastatin 20 mg tablet 20 mg PO BEDTIME ferrous sulfate [FeroSul] 325 mg (65 mg iron) tablet 325 mg PO BID pioglitazone 45 mg tablet 45 mg PO DAILY@1900 Myrbetriq 50 mg tablet extended release 24 hr 50 mg PO BEDTIME Discharge Orders: Discharge Order (Routine); Ordered 09/18/24 Ordered By: Amanda Monge Diet: Diabetic diet Activity on Discharge: As tolerated Stand Alone Forms: Patient Portal Discharge page Print Language: Citizen [place] Care Plan Goals: Follow up with Ophthalmology soon to addressed visual problems on presentation It is unlikely that you experienced a TIA/CVA but you should follow-up with your PCP soon Health Concerns: Blurred vision Plan of Treatment: Follow-up with ophthalmology soon Assessment: See above. See discharge summary Discharge Date/Time: 09/18/24 15:45
[2024-09-18 08:30] VITALS: BP 132/66
[2024-09-18] MEDS: amLODIPine Besylate 5 MG TABLET PO (08:30)
[2024-09-18] MEDS: Atorvastatin Calcium 40 MG TABLET PO ×2 (08:30→09:28)
[2024-09-18] MEDS: Ascorbic Acid 500 MG TABLET PO (08:32)
[2024-09-18] MEDS: Ferrous Sulfate 324 MG TABLET.DR PO (08:33)
[2024-09-18] MEDS: Aspirin Enteric Coated 81 MG TABLET.DR PO (08:33)
[2024-09-18 09:00] VITALS: BP 141/65; PULSE 97; RESP 18; TEMP 36.6; O2SAT 97
--- NOTE | 2024-09-18 09:16 | PM.NEUROCN ---
History of Present Illness Data of Consult Service Date: 09/18/24 Primary Care Provider: Jolly London MD [facility] Reason for consult: Left eye blurred vision 88 years old man who came to hospital with symptoms of nausea and reporting that something was not right about his left eye. Apparently he admitted to blurriness of vision but no pain or headache. This morning he was feeling fine stating that he was okay. Apparently he never had similar symptoms. His initial head CT and CTA did not reveal any significant abnormality. Review of Systems Review of Systems: No recent cold or flu-like illness PMFSH Past Medical History Medical History Tubular adenoma of colon Neurogenic bladder Chronic anemia HTN (hypertension) Prostate cancer Hypercholesterolemia Diabetes mellitus Renal cyst Choledocholithiasis Diverticulosis Family History Family History Unknown Cancer Surgical History Surgical History History of colonoscopy History of hernia surgery H/O prostatectomy Social History Social History Household Members: None Housing: Apartment Alcohol intake: never Patient Tobacco Use Status: Never used Tobacco Smoked in Last 30 Days: No Use of substances other than those prescribed or required for medical reasons: No Advance Directives: Yes Advance Directives on File: Yes Advance Directives Date on File: 02/22/24 Nutrition Risks: No Nutritional Risk service: No Current occupational status: retired Current occupation: right handed Meds Allergies Allergy/AdvReac Type Severity Reaction Status Date / Time cephalexin Allergy Intermediate Constipatio Verified 09/17/24 12:37 n oxycodone [From Percocet] AdvReac Mild VOMITING/DI Verified 09/17/24 12:37 ZZINES percocet Allergy Unknown nausea/dizz Uncoded 09/17/24 12:37 iness Active Medications: Current Medications Acetaminophen (Acetaminophen 325 Mg Tablet) 650 mg PO Q6H PRN PRN Reason: Pain, Mild 1-3,fever,headache Amlodipine Besylate (Amlodipine Besylate 5 Mg Tablet) 5 mg PO DAILY JENS; Protocol Last Admin: 09/18/24 08:30 Dose: 5 mg Ascorbic Acid (Ascorbic Acid 500 Mg Tablet) 500 mg PO BEDTIME [facility] Last Admin: 09/18/24 08:32 Dose: 500 mg Aspirin (Aspirin Enteric Coated 81 Mg Tablet.) 81 mg PO DAILY [facility] Last Admin: 09/18/24 08:33 Dose: 81 mg Atorvastatin Calcium (Atorvastatin Calcium 40 Mg Tablet) 40 mg PO DAILY [facility] Last Admin: 09/18/24 08:30 Dose: 40 mg Calcium Carbonate (Calcium Carbonate 750 Mg Tab.Chew) 750 mg PO Q4H PRN PRN Reason: Heartburn Cyanocobalamin (Cyanocobalamin (Vitamin B-12) 1,000 Mcg Tablet) 1,000 mcg PO BEDTIME [facility] Enoxaparin Sodium (Enoxaparin Sodium 40 Mg/0.4 Ml Syringe) 40 mg SUBCUT Q24H [facility] Last Admin: 09/17/24 15:22 Dose: 40 mg Ferrous Sulfate (Ferrous Sulfate 324 Mg Tablet.) 324 mg PO BID [facility] Last Admin: 09/18/24 08:33 Dose: 324 mg Insulin Human Lispro (Insulin Lispro 100 Unit/Ml 3 Ml Vial) 0 unit SUBCUT QIDACHS [facility]; Protocol Last Admin: 09/18/24 07:35 Dose: Not Given Magnesium Hydroxide (Milk Of Magnesia 30 Ml Oral.Susp) 30 ml PO DAILY PRN PRN Reason: Constipation Magnesium Oxide (Magnesium Oxide 400 Mg Tablet) 400 mg PO DAILY@1200 [facility] Melatonin (Melatonin 3 Mg Tablet) 6 mg PO BEDTIME PRN PRN Reason: Insomnia Mirabegron (Mirabegron 50 Mg Tab.Er.24h) 50 mg PO BEDTIME [facility] Pioglitazone HCl (Pioglitazone Hcl 45 Mg Tablet) 45 mg PO DAILY@1900 [facility] Sodium Chloride (0.9 % Sodium Chloride Flush 3 Ml Syringe) 3 ml IVFLUSH QSHIFT [facility] Last Admin: 09/18/24 08:33 Dose: 3 ml Home Medications ?Medication ?Instructions ?Recorded ?Confirmed ?Last Taken ?Type amlodipine 5 mg tablet 5 mg PO DAILY 04/12/22 09/17/24 09/04/24 History aspirin 81 mg tablet,delayed 81 mg PO DAILY 04/12/22 09/17/24 09/04/24 History release atorvastatin 20 mg tablet 20 mg PO BEDTIME 04/12/22 09/17/24 09/03/24 History blood sugar diagnostic (Clemente #10 ea 04/12/22 08/03/23 Unknown History Lite Strips) ferrous sulfate 325 mg (65 mg 325 mg PO BID 04/12/22 09/17/24 09/04/24 History iron) tablet (FeroSul) lancets 33 gauge (TRUEplus Lancets) #100 ea 04/12/22 08/03/23 Unknown History mirabegron 50 mg tablet,extended 50 mg PO BEDTIME 04/12/22 09/17/24 09/03/24 History release 24 hr (Myrbetriq) pioglitazone 45 mg tablet 45 mg PO DAILY@1900 04/12/22 09/17/24 09/03/24 History ascorbic acid (vitamin C) 500 mg 500 mg PO BEDTIME 02/17/24 09/17/24 09/03/24 History tablet (Vitamin C) cyanocobalamin (vitamin B-12) 1,000 mcg PO BEDTIME 02/17/24 09/17/24 09/03/24 History 1,000 mcg tablet metformin 750 mg tablet,extended 750 mg PO BIDWM@1200,1700 02/17/24 09/17/24 09/03/24 History release 24 hr magnesium oxide 400 mg (241.3 mg 400 mg PO DAILY@1200 09/17/24 09/17/24 09/03/24 History magnesium) tablet Physical Exam Vital Signs: Vital Signs: Last Vital Signs Temp 97.8 F 09/18/24 09:00 Pulse 97 09/18/24 09:00 Resp 18 09/18/24 09:00 BP 141/65 H 09/18/24 09:00 Pulse Ox 97 09/18/24 09:00 O2 Del Method Room Air 09/18/24 09:00 BMI result Body Mass Index 29.4 Neuro: Other: He is alert and awake with normal spontaneity of speech fluency comprehension and affect. Face is symmetrical. Visual patel are full. Pupils are round. Extraocular muscles were intact. No focal arm or leg weakness. Speech is normal. Results Labs 09/17/24 13:26 09/17/24 13: Labs: Short CBC 09/17/24 Range/Units 13: WBC 5.9 (4.8-10.8) X10*3/uL Hgb 10.8 L (14.0-18.0) g/dl Hct 33.4 L (42.0-52.0) % Plt Count 223 (160-400) X10*3/uL BMP 09/17/24 13:26 Sodium 139 Potassium 4.1 Chloride 108 Carbon Dioxide 22 BUN 21 H Creatinine 1.[address] and CTA did not reveal any significant abnormality. Assessment and Plan (1) Vision changes: Status: Acute Symptoms of nausea and left eye blurred vision if they are together and appeared at the same time would suggest a brainstem process such as ischemic infarction. Alternatively, I blurriness might be an ophthalmological issue such as migraine or ischemic neuropathy. In case of ischemic neuropathy though, I may not get better this quickly. I recommend a noncontrast MRI of brain for definition. If that is negative he should follow-up with an records assistant. Procedures Date of Service Date of Service: 09/18/24
[2024-09-18 09:30] VITALS: BMI 28.9
--- NOTE | 2024-09-18 10:00 | PC.NURSE ---
MRI screening form faxed.
[2024-09-18 11:18] LABS: Glucose, Whole Blood 187 mg/dL (60-115)
[2024-09-18 11:38] VITALS: BP 136/72; PULSE 86; RESP 18; TEMP 36.8; O2SAT 98
[2024-09-18] MEDS: Insulin Lispro 100 UNIT/ML 3 ML VIAL SUBCUT (11:39)
[2024-09-18] MEDS: Magnesium Oxide 400 MG TABLET PO (11:40)
--- NOTE | 2024-09-18 12:56 | MHC.CM.PN ---
DARRELL 09/18/24, EMR REVIEWED, CM MET W/PT VIA OPERATIONS GENERAL AGENT, PT REPORTS HE LIVES ALONE, IS INDEP W/MOST CARE, DENIES USE OF DME OTHER THAN DIABETIC SUPPLIES AND DENIES HOME SERVICES, PT REPORTS GOAL FOR DC IS HOME AND IS OPEN TO VNA SERVICES IF NEEDED. PT VERIFIES PCP, PT EDUCATED ON AND DECLINES TO COMPLETE A HCP AT THIS TIME, PT REPORTS HE WILL THINK ABOUT WHO HE WANTS BUT DOESN'T HAVE ANYONE LOCAL. ANTIC PT MAY BE MEDICALLY CLEARED FOR DC HOME P[ENDING MRI, PT REPORTS HE WILL ARRANGE HIS OWN TRANSPORT
[2024-09-18] MEDS: Enoxaparin Sodium 40 MG/0.4 ML SYRINGE SUBCUT (15:23)
== END 2024-09-18 15:45 | disposition home or self-care (01) ==
LOC: HO.ED 14:15 → HO.EDOVER 14:53 → HO.IMC 09-18 07:27
PROVIDERS: Physician Assistant Medical; Admitting Provider Family Medicine; Emergency Provider Student in an Organized Health Care Education/Training Program; PCP Family Medicine; Visit Provider Physician Assistant
DX: H53.8 Other visual disturbances (principal); R13.10 Dysphagia, unspecified; R11.0 Nausea; I10 Essential (primary) hypertension; E11.9 Type 2 diabetes mellitus without complications; E78.5 Hyperlipidemia, unspecified; Z85.46 Personal history of malignant neoplasm of prostate; Z79.899 Other long term (current) drug therapy
CPT/HCPCS: 36415; 70450; 70496; 70498; 71045; 80048; 80061; 82947; 84484; 85025; 85610; 85730; 93005; 96372; 99222; 99285; J1650; Q9967

== ENCOUNTER → 2024-09-17 12:36 | Outpatient (BNV) | payer OTHER, SELFPAY | PROVIDERS: Admitting Provider Family Medicine; Emergency Provider Student in an Organized Health Care Education/Training Program; PCP Family Medicine; Visit Provider Internal Medicine Cardiovascular Disease | DX: I10 Essential (primary) hypertension (principal); H53.9 Unspecified visual disturbance | CPT/HCPCS: 93010 ==

== ENCOUNTER → 2024-09-17 12:36 | Outpatient (BNV) | payer OTHER, SELFPAY | PROVIDERS: Emergency Provider Student in an Organized Health Care Education/Training Program; PCP Family Medicine; Visit Provider Radiology Diagnostic Radiology | DX: R29.818 Other symptoms and signs involving the nervous system (principal) | CPT/HCPCS: 70450; 70496; 70498; 71045 ==

== ENCOUNTER → 2024-09-17 14:52 | Outpatient (BNV) | payer OTHER, SELFPAY | PROVIDERS: Admitting Provider Family Medicine; Emergency Provider Student in an Organized Health Care Education/Training Program; PCP Family Medicine; Visit Provider Family Medicine | DX: H53.9 Unspecified visual disturbance (principal) | CPT/HCPCS: 99222; 99239 ==

== ENCOUNTER → 2024-09-17 14:52 | Outpatient (BNV) | payer OTHER, SELFPAY | PROVIDERS: Admitting Provider Family Medicine; Emergency Provider Student in an Organized Health Care Education/Training Program; PCP Family Medicine; Visit Provider Psychiatry & Neurology Neurology | DX: H53.9 Unspecified visual disturbance (principal) | CPT/HCPCS: 99222 ==

== ENCOUNTER 2024-11-07 14:07 | Outpatient (REF) | payer OTHER, SELFPAY ==
[2024-11-07 16:19] LABS: Anion Gap 12 (12-20); Blood Urea Nitrogen 26 mg/dL (9-16); Calcium 9.4 mg/dL (8.4-10.2); Carbon Dioxide 27 mmol/L (22-29); Chloride 104 mmol/L (96-108); Estimated Glomerular Filt Rate 51; Glucose Random 243 mg/dL (60-115); Potassium 4.6 mmol/L (3.3-5.1); Sodium 138 mmol/L (135-145)
--- OUTSIDE RECORDS SUMMARY | 2024-11-07 16:59 | XMS_ITS | Encounter Summary ---
Author Organization [employer] Address [address] [facility] [address] [place] [address] Care Team Providers Care Assembler Billiard Table Name Role Phone Jolly London MD Primary Care Provider [phone] Javier Benton PharmD Unavailable [phone] Encounter Details Date Type Department Care Team ([facility] st Contact Info) Description 12/14/2023 Orders Only [facility] [address] [place], [place] [phone] Jolly London MD [address] [place], [place] [phone] Social History Tobacco Use Types Packs/Day Years [...] as of this encounter Plan of Treatment Upcoming Encounters Date Type Department Care Team (Late st Contact Info) Description 11/19/2024 3:30 PM EDT Office Visit [facility] [address] [place], [place] [phone] Jolly London MD [address] [place] [address] documented as of this encounter Goals Goal Patient Goal Type Associated Problems Recent Progress Patient-Stated? Author Blood Pressure < 140/90 Blood Pressure 132/68( 025 2:29 PM EDT) No Javier Benton, Marc documented as of this encounter Visit Diagnoses Not on filedocumented in this encounter Additional Health Concerns Assessment Noted Time PHQ-9 Depression Total Score: 0 02/15/20 23 1:30 PM EDT documented as of this encounter Care Teams Assembler Billiard Table Relationship Specialty Start Date End Date Jolly London MD [address] [place] [address] PCP - General Family Medicine 06/29/12 Javier Benton, AreliD [address] [place] [address] [phone] Pharmacist Internal Medicine 01/14/23 documented as of this encounter
--- OUTSIDE RECORDS SUMMARY | 2024-11-07 16:59 | XMS_ITS | Encounter Summary ---
Author Organization [employer] Address [address] [facility] [address] [place] [address] Care Team Providers Care Doctor Assistant Name Role Phone Jolly London MD Primary Care Provider [phone] Javier Benton PharmD Unavailable [phone] Reason for Visit * Reason Comments Med Refill Encounter Details Date Type Department Care Team ([facility] st Contact Info) Description 11/13/2023 Refill [facility] [address] [place] [address] Jolly London MD [address] [place], [place] [phone] Social History Tobacco Use Types Packs/Day Years [...] Description 11/19/2024 3:30 PM EDT Office Visit [facility] [address] [place], [place] [phone] Jolly London MD [address] [place] [phone] documented as of this encounter Goals Goal [...] documented as of this encounter Care Teams Doctor Assistant Relationship Specialty Start Date End Date Jolly London MD [address] [place] [id number] PCP - General Family Medicine 06/29/12 Javier Benton, AreliD [address] [place] [address] [phone] Pharmacist Internal Medicine 01/14/23 documented as of this encounter
--- OUTSIDE RECORDS SUMMARY | 2024-11-07 17:00 | XMS_ITS | Clinical Summary ---
Author Organization [employer] Address [address] [facility] [place] [address] Care Team Providers Care Loom Fixer Supervisor Name Role Phone Jolly Constantino MD Primary Care Provider [phone] Javier Benton PharmD Unavailable [phone] Allergies Active Allergy Reactions Criticality Noted Date [...] skin. 385 g 3 02/22/20 23 Active Ascorbic Acid (vitamin C) 500 MG [...] daily. 180 tablet 3 03/07/20 24 Active FreeStyle lancets 1 each by Other route before breakfast, before lunch, and before evening meal. TEST BLOOD SUGAR 3 TIMES A DAY 100 each 11 04/16/20 24 Active pioglitazone (Actos) 45 MG tablet TAKE 1 TABLET BY MOUTH EVERY EVENING 90 tablet 1 06/27/20 24 Active amLODIPine (Norvasc) 5 MG tabletIndication s:Primary hypertension TAKE 1 TABLET BY MOUTH EVERY MORNING 90 tablet 3 08/20/19 25 Active cyanocobalamin (Vitamin B-12) 1000 MCG tablet TAKE 1 TABLET BY MOUTH AT BEDTIME 90 tablet 3 09/28/19 25 Active metFORMIN XR (Glucophage-XR) 750 MG 24 hr tablet TAKE 1 TABLET BY MOUTH TWICE DAILY AT NOON AND IN THE EVENING WITH MEALS. DO NOT BREAK, CRUSH, DISSOLVE OR CHEW 180 tablet 3 09/27/19 25 Active Alcohol Swabs (Alcohol Prep) 70 % padsIndications: Type 2 diabetes mellitus with hyperglycemia, without long-term current use of insulin ([facility]) USE TO CHECK BLOOD SUGAR DIRECTED 100 each 5 09/27/19 25 Active furosemide (Lasix) 20 MG tablet Take 1 tablet (20 mg) by mouth Once per day. 90 tablet 3 10/11/19 25 026 Active FREESTYLE LITE test stripIndications :Type 2 diabetes mellitus with hyperglycemia, without long-term current use of insulin (CMS/[facility]) USE DIRECTED TO TEST BLOOD SUGAR THREE TIMES DAILY 100 strip 5 10/25/19 25 Active glucose blood (FREESTYLE LITE) test stripIndications :Type 2 diabetes mellitus with hyperglycemia, without long-term current use of insulin ([facility]) USE DIRECTED TO TEST BLOOD SUGAR THREE TIMES DAILY 100 strip 5 04/11/20 24 025 Discontinued Active Problems Problem Noted Date Diagnosed Date Dizziness 09/28/2024 Assessment & Plan (09/28/2024 9:47 AM EDT): - patient insists on prescription for cortisporin gtt - advised to contact us if his symptoms do not improve TIA (transient ischemic attack) 09/28/2024 Assessment & Plan (09/28/2024 9:47 AM EDT): - Seen in [facility] on 09/17/24, questionable - patient claims that he did not have vision problem. However, he is high-risk for CVA / TIA - continue ASA - continue optimizing chronic disease management - continue working on lifestyle modificaitons Excessive attrition of teeth, 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 09/05/2024 Partial edentulism 09/05/2024 Hypoalbuminemia 04/29/2024 Assessment & Plan (04/29/2024 7:01 AM EDT): - likely due to poor nutritional intake, it can worsen his edema - continue nutritional supplement: Boost Glucose Control or Glucerna - discussed about adult day program, which patient is not enthusiastic about - discussed about meal delivery service. Patient tried once, but preferred [place] foods to typical [place] foods. Patient is willing to try again. - currently going to [employer] for lunch as a part of service from [facility]. - discussed with patient's healthcare representative about getting a PRODUCT PICKER who can cook for him and eat [...] anemia. Elevated ferritin level. - Seen by ob/gyn in July 2023 - monitor - Continue current iron supplementation Assessment & Plan (04/26/2024 10:33 AM EDT): - Normocytic anemia. Elevated ferritin level. - Seen by ob/gyn in July 2023 - monitor - Continue current iron supplementation Assessment & Plan (03/07/2024 3:45 PM EDT): - Normocytic anemia. Elevated ferritin level. - Seen by ob/gyn in July 2023 - monitor - Continue current iron supplementation Assessment & Plan (01/25/2024 5:10 PM EDT): - Normocytic anemia. Elevated ferritin level. - Seen by ob/gyn in July 2023 - monitor - Continue current iron supplementation Assessment & Plan (10/18/2023 1:00 PM EDT): - Normocytic anemia. Elevated ferritin level. - Seen by ob/gyn in July 2023 - monitor - Continue current iron supplementation Assessment & Plan (06/22/2023 5:49 AM EST): - Normocytic anemia. Elevated ferritin. - Seen by ob/gyn on 05/13/23 - monitor - Continue current [...] mellitus, type 2 11/13/2012 Assessment & Plan (09/28/2024 8:27 AM EDT): - A1C 7.7% on 09/27/24 -HgbA1C 7.9% on 08/13/24 -Continue working on lifestyle modifications -Continue metformin ER 750 mg bid. Consider further increase. -Continue Actos 45 mg daily. Consider switching to other agent after maximizing metformin. -Treatment Hx: glipizide was discontinued due to hypoglycemia and metformin has not been maximized. -Last eye exam: November 2023 -Last foot exam: 04/26/24 -Last microalbumin test: 01/25/24 UACR 112.8 -Last lipid profile: 09/17/24 Total cholesterol 113; Triglyceride 120; HDL 42; LDL 47 -Last dental exam: Assessment & Plan (08/19/2024 12:39 PM EST): [...] eat healthier foods. Will refer him to [facility] department. Will write a letter to the [...] eat healthier foods. Will refer him to [facility] department. Will write a letter to the [...] 3 months Dyslipidemia 11/13/2012 Assessment & Plan (09/28/2024 9:42 AM EDT): -Current medication: atorvastatin 40 mg at bedtime -Last lipid profile: 01/25/24 -Continue current medication and lifestyle modification effort Assessment & Plan (08/13/2024 3:53 PM EST): [...] 3:52 PM EST): - Following with Urologist, [facility], last seen in Apr 2024 -Discontinued Imipramine. -Continue mirabegron -Recently given a sample of Gemtesa -Treatment Hx: Previously on oxybutynin 5 mg which was changed to mirabegron when he went to [place] and was seen by an urologist there. Previously on imipramine, which was recommended to discontinue due to anticholinergic effect. Assessment & Plan (04/29/2024 6:49 AM EDT): - Following with Urologist, [facility], last seen in Apr 2024 -Discontinued Imipramine. -Continue mirabegron -Recently given a sample of Gemtesa -Treatment Hx: Previously on oxybutynin 5 mg which was changed to mirabegron when he went to [place] and was seen by an urologist there. Previously on imipramine, which was recommended to discontinue due to anticholinergic effect. Assessment & Plan (01/25/2024 5:07 PM EDT): - [facility] with [facility], last seen in November 2023 -Discontinued Imipramine. -Continue mirabegron -Treatment Hx: Previously on oxybutynin 5 mg which was changed to mirabegron when he went to [place] and was seen by an urologist there. Previously on imipramine, which was recommended to discontinue due to anticholinergic effect. Assessment & Plan (10/18/2023 1:22 PM EDT): - Following with [facility], last seen in July 2023 -Discontinue Imipramine. -Continue mirabegron -Treatment Hx: Previously on oxybutynin 5 mg which was changed to mirabegron when he went to [place] and was seen by an urologist there. Previously on imipramine, which was recommended to discontinue due to anticholinergic effect. Assessment & Plan (06/22/2023 5:42 AM EST): - Following with [facility], last seen on 02/11/2023 -Continue Imipramine. -Continue mirabegron -Treatment Hx: Previously on oxybutynin 5 mg which was changed to mirabegron when he went to [place] and was seen by an urologist there. Assessment & Plan (02/21/2023 5:12 AM EDT): - Following with [facility], last seen on 02/11/2023 -Continue Imipramine. -Continue myrbetriq. -Treatment Hx: Previously on oxybutynin 5 mg which was changed to Mybetriq when he went to [place] and was seen by an urologist there. Assessment & Plan (11/09/2022 5:06 PM EDT): Following with Urologist, last seen on 10/2022, requested mote of the visit and it is pending at this time -Continue Imipramine. -Continue myrbetriq. -Treatment Hx: Previously on oxybutynin 5 mg which was changed to Mybetriq when he went to [place] and was seen by an urologist. Assessment & Plan (07/04/2022 5:07 AM EST): -Continue Imipramine. -Continue myrbetriq. -Treatment Hx: Previously on oxybutynin 5 mg which was changed to Mybetriq when he went to [place] and was seen by an urologist. Hypertension 11/13/2012 Assessment & Plan (09/28/2024 8:26 AM EDT): -Goal BP < 140/90 per JNC-8, < 130/80 per ACC/AHA (Tx threshold 130/80) -Elevated BP today, but he is somewhat in excited state when explaining about his recent ED visit; normal BP at last CDTM visit -Risk factors: Male, BMI, DM, -Co-managed with [...] hyperkalemia in February 2024. Assessment & Plan (08/13/2024 4:05 PM EST): [...] UTI Prostate cancer 11/13/2012 Assessment & Plan (09/28/2024 9:44 AM EDT): Dx in 1992. s/p prostatectomy in 1992 in [place]. Urologist: [facility], last seen in Apr 2024 Hx [...] per urologist and oncologist. Assessment & Plan (08/13/2024 3:52 PM EST): Dx in 1992. s/p prostatectomy in 1992 in [place]. Urologist: [facility], last seen in Apr 2024 Hx [...] in 1992. s/p prostatectomy in 1992 in [place]. [facility], last seen in Apr 2024 Hx [...] in 1992. s/p prostatectomy in 1992 [place] [facility], last seen in November 2023 Hx [...] in 1992. s/p prostate[place] in 1992 [place] [facility], last seen in November 2023 Hx [...] in 1992. s/p prostatectomy in 1992 in [place]. Urologist: Dr. Brush, last seen in Apr [...] in 1992. s/p prostatectomy in 1992 in [place]. Urologist: Dr. Brush, last seen in 10/2022, [...] in 1992. s/p prostatectomy in 1992 in [place]. Urologist: [facility], last seen in January 2023 Hx hypogonadism, neurogenic bladder, and recurrent UTI last UTI in 10/2022 last PSA 0.7 in 10/2022, increased from previous PSA Abd/pelvis CT recently showed no sign of recurrence per specialist Continue current treatment plan. Assessment & Plan (10/18/2023 1:23 PM EDT): Dx in 1992. s/p prostatectomy in 1992 in [place]. Urologist: [facility], last seen in May 2023 Hx [...] EDT): >>ASSESSMENT AND PLAN FOR PROSTATE CANCER ([facility]) WRITTEN ON 06/22/2023 12:44 PM BY JOLLY CONSTANTINO MD Dx in 1992. s/p prostatectomy in 1992 in [place]. Urologist: [facility], last seen in May 2023 Hx [...] appt with urologist and radiation oncologist Called [facility] and requested an assistance in rescheduling Bone Scan appt and giving instruction in [place] Citizen. The radio division officer has kindly agreed to do so. >>ASSESSMENT AND PLAN FOR HISTORY OF PROSTATE CANCER WRITTEN ON 06/22/2023 12:44 PM BY JOLLY CONSTANTINO MD Dx in 1992. s/p prostatectomy in 1992 in [place] Urologist: [facility], last seen in May 2023 Hx [...] appt with urologist and radiation oncologist Called [facility] and requested an assistance in rescheduling Bone Scan appt and giving instruction in [place] Citizen. The radio division officer has kindly agreed to do so. Resolved Problems Problem Noted Date Diagnosed Date Resolved Date Poor appetite 04/29/2024 09/28/2024 Assessment & Plan (04/29/2024 7:01 AM EDT): - patient may benefit from more socialization - continue periodic assessment for depression / dementia Gastroesophageal reflux disease 01/07/2016 07/04/2022 Helicobacter pylori gastroin testinal tract infection 01/07/2016 01/25/2024 Encounters Date Type Department Care Team Description 11/07/2024 Orders Only [facility] [address] [facility] [place] [place] [address] Jolly Constantino MD 11/07/2024 Travel 10/23/2024 Travel 10/23/2024 Refill [facility] [address], [place] [address] Jolly Constantino MD Type 2 diabetes mellitus with hyperglycemia, without long-term current use of insulin (CMS/HCC) 10/10/2024 Orders Only [facility] [address], [place] [address] Jolly Constantino MD Dizziness (Primary Dx); Sensorineural hearing loss, bilateral 10/10/2024 Orders Only [facility] [address], [place] [address] Jolly Constantino MD Sensorineural hearing loss, bilateral (Primary Dx) 10/10/2024 Orders Only [facility] [address] [facility] [place] [place] [address] Jolly Constantino MD Sensorineural hearing loss, bilateral (Primary Dx); Dizziness 10/05/2024 Telephone [facility] [address] [place], [place] [address] Jolly Constantino MD Referral 09/27/2024 10:30 AM EDT Office Visit [facility] [address] [facility] [place] [place] [address] Jolly Constantino MD Primary hypertension (Primary Dx); Type 2 diabetes mellitus with hyperglycemia, without long-term current use of insulin (CMS/HCC); Dyslipidemia; Sensorineural hearing loss, bilateral; Dietary counseling; Exercise counseling; Class 1 obesity due to excess calories with serious comorbidity and body mass index (BMI) of 32.0 to 32.9 in adult; At risk for falls; Prostate cancer (CMS/HCC); Dizziness; TIA (transient ischemic attack) 09/27/2024 Travel 09/26/2024 Refill [facility] [address] [facility] [place] [address] Jolly Constantino MD Type 2 diabetes mellitus with hyperglycemia, without long-term current use of insulin ([facility]) 09/25/2024 Refill [facility] [address] [facility] [place] [address] Jolly Constantino MD 09/24/2024 Refill [facility] [place] [facility] [place] [address] Jolly Constantino MD Type 2 diabetes mellitus with hyperglycemia, without long-term current use of insulin ([facility]) 09/20/2024 Telephone [facility] [place] [address] Jolly Constantino MD medication refill 09/17/2024 Orders Only [facility] External Provider, [facility] 09/07/2024 2:00 PM EST Office Visit [facility] [address] [facility] [place] [address] Gareth Fox DDS Partial edentulism, unspecified edentulism class (Primary Dx) 09/05/2024 1:30 PM EST Office Visit [facility] [address] [facility] [place] [address] Gareth Fox DDS Excessive attrition of teeth, 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 (Primary Dx); Dental plaque; Missing teeth, acquired 08/31/2024 Telephone [facility] [place] [address] Jolly Constantino MD Homecare Delivered (Automatic BP Monitor, Dial) 08/23/2024 Abstract [facility] [place] [facility] [address] Melissa Ashraf [place] 08/22/2024 Telephone [facility] [place] [address] Melissa Ashraf [place] Appointment Request; dme bp monitor 08/18/2024 Refill [facility] [place] [facility] [address] Jolly Constantino MD Primary hypertension 08/13/2024 3:00 PM EST Office Visit [facility] [address] [place] [address] Jolly Constantino MD Primary hypertension (Primary Dx); Prostate cancer ([facility]); Neurogenic bladder; Recurrent UTI; Type 2 diabetes mellitus with hyperglycemia, without long-term current use of insulin ([facility]); Anemia of chronic disease; Sensorineural hearing loss, bilateral; Dyslipidemia 08/13/2024 Travel from Last 3 Months Immunizations Name Administration [...] Sign Reading Time Taken Comments Blood Pressure 132/68 11/07/2024 2:29 PM EDT Pulse 93 11/07/2024 2:29 PM EDT Temperature 36.1 ??C (96.9 ??F) 09/27/2024 10:59 AM E DT Respiratory Rate 18 09/27/2024 10:59 AM EDT Oxygen Saturation 97% 09/27/2024 10:59 AM EDT Inhaled Oxygen Concentration - - Weight 77.7 kg (171 lb 6.4 oz) 09/27/2024 10:59 AM EDT Height 154.9 cm (5' 1 ) 09/27/2024 10:59 AM EDT Body Mass Index 32.39 09/27/2024 10:59 AM EDT Plan of Treatment Upcoming Encounters Date Type Department Care Team (Late st Contact Info) Description 11/19/2024 3:30 PM EDT Office Visit [facility] [address] [place] [address] Jolly Constantino MD [address] [place] [address] Health Maintenance Due Date Last Done Comments Dental Prophylaxis 1935 Dental X-Ray: Bitewings 1935 SDOH Screening 10/06/2024 10/07/2023 Diabetes: Hemoglobin A1C 12/28/2024 025, 08/13/2024, 04/26/2024, Additional history exists Diabetes: Urine Protein Screening 01/24/2025 01/25/2024, 02/14/2023, 03/09/2022, Additional history exists Dental Oral Exam 03/06/2025 09/05/2024 Alcohol/Substance Use Screening 04/26/2025 04/26/2024 Diabetes: Foot Exam 04/26/2025 04/26/2024, 04/26/2024, 04/26/2024, Additional history exists Depression Screening 08/13/2025 08/13/2024, 08/13/19 Lipid Panel 09/17/2025 09/17/2024, 01/15, 02/22/2023, Additional history exists Tobacco Screening 09/28/2025 09/28/2024 Eye Exam 12/07/2025 12/08/2023 Dental X-Ray: Full [...] on patient's age to complete this topic Hepatitis A Vaccines Aged Out No long er eligible based on patient's age to complete [...] 2:29 PM EDT) No Javier Benton, Marc Procedures Procedure Name Priority Date/Time Associated Diagnosis Comments BASIC METABOLIC PANEL Routine 11/07/2024 2:09 PM EDT POCT GLYCATED HEMOGLOBIN, TOTAL Routine 09/27/2024 11:12 AM EDT Type 2 diabetes mellitus with hyperglycemia, without long-term current use of insulin ([facility]) POCT GLUCOSE Routine 09/27/2024 11:11 AM EDT Type 2 diabetes mellitus with hyperglycemia, without long-term current use of insulin ([facility]) HIGH SENSITIVITY TROPONIN I Routine 09/17/2024 1:26 [...] of insulin ([facility]) POCT GLUCOSE Routine 08/13/2024 3:12 PM EST Type 2 diabetes mellitus with hyperglycemia, without long-term current use of insulin ([facility]) ALBUMIN, RANDOM URINE W/CREATININE Routine 01/25/2024 4:06 PM EDT Type 2 diabetes mellitus with hyperglycemia, without long-term current use of insulin ([facility]) DIABETES EYE EXAM Routine 12/08/2023 from Last 3 Months or Most Recently Relevant to Health Maintenance Results * (ABNORMAL) Basic Metabolic Panel (11/07/2024 2:09 PM EDT) Only the most recent of2 resultswithin the time period is included. Sodium 138 135 - 145 mmol/L [facility] Potassium 4.6 3.3 - 5.1 mmol/L [facility] Chloride 104 96 - 108 mmol/L [facility] Carbon Dioxide 27 22 - 29 mmol/L [facility] Anion Gap 12 12 - 20 [facility] Urea Nitrogen (BUN) 26(H) 9 - 16 mg/dL [facility] Creatinine, Serum 1.32 0.5 - 1.4 mg/dL [facility] Estimated Glomerular Filt Rate 51 [facility] Comment:Chronic Kidney Disea se: Estimated GFR < 60 mL/min/[id number] Kidney Disease: Estimated GFR < 15 mL/min/1.73m2 Glucose 243(H) 60 - 115 mg/dL [facility] Calcium 9.4 8.4 - 10.2 mg/dL [facility] 11/07/2024 2:09 PM EDT 11/07/2024 3:53 PM EDT us Jolly Constantino MD LAB BLOOD ORDERABLES Final Resul t [facility] [address] [place] [phone] * (ABNORMAL) POCT HGB A1C (09/27/2024 11:12 AM EDT) Hemoglobin A1C 7.7(A) 4.0 - 6.0 % QC Media Lot # [id number] Lot# Expiration Date , 6 Blood 09/27/2024 11:1 2 AM EDT Jolyl Constantino MD POINT OF CARE TEST ENTER/EDIT OR DERABLES Final Result * (ABNORMAL) POCT Glucose (09/27/2024 11:11 AM EDT) Only the most recent of2 resultswithin the time period is included. Pathologist [facility] Glucose Blood, POC 322(A) 60 - 200 mg/dL QC Media Lot # [id number] Lot# Expiration Date Blood Capillary blood specimen / Unknown 09/27/2024 11:11 AM EDT Jolly Constantino MD POINT OF CARE TEST ENTER/EDIT OR DERABLES Final Result * High Sensitivity Troponin I (09/17/2024 1:26 PM EST) [facility] TROPONIN I HIGH SENSITIVITY <2.7 <3.5 - 35.0 ng/L [facility] Comment:The Manuel high sens itivity Troponin-I results should beused in conjunction with other diagnostic information suchas ECG, clinical observations and information, and patientsymptoms to aid in the diagnosis of [place]. 09/17/2024 1:26 PM EST 09/17/2024 1:34 PM EST Generic External Data Provider LAB BLOOD ORDERAB LES Final Result [facility] [address] [place] [phone] * (ABNORMAL) CBC auto differential (09/17/2024 1:26 PM EST) [facility] White Blood Count 5.9 4.8 - 10.8 X10*3/uL [facility] Red Blood Count 3.97(L) 4.60 - 5.80 X10*6/uL [facility] Hemoglobin 10.8(L) 14.0 - 18.0 g/dl [facility] Hematocrit 33.4(L) 42.0 - 52.0 % [facility] Mean Corpuscular Volume 84.1 80.0 - 98.0 fL [facility] Mean Corpuscular Hemoglobin 27.2 27.0 - 33.0 pg [facility] Mean Corpuscular HGB Conc 32.3 31.0 - 36.0 g/dl [facility] Red Cell Distribution Width 17.6(H) 11.0 - 16.0 % [facility] Platelet Count 223 160 - 400 X10*3/uL [facility] Mean Platelet Volume 10.4 9.4 - 12.4 fL [facility] Neutrophils Percent Auto 86.1(H) 45 - 73 % [facility] Imm Gran Pct Auto 0.5(H) 0.0 - 0.4 % [facility] Lymphocytes Percent Auto 5.7(L) 20 - 40 % [facility] Monocytes Percent Auto 7.3 2 - 11 % [facility] Eosinophils Percent Auto 0.2 0 - 4 % [facility] Basophils Percent Auto 0.2 0 - 2 % [facility] NRBC Pct Auto 0.0 0.0 - 0.2 /100WBC [facility] Neutrophils Absolute Auto 5.1 2.0 - 8.3 x10*3/uL [facility] Imm Gran Abs Auto 0.03 0.00 - 0.03 X10*3/uL [facility] Lymphocytes Absolute Auto 0.3(L) 1.2 - 4.9 X10*3/uL [facility] Monocytes Absolute Auto 0.4 0.1 - 1.2 X10*3/uL [facility] Eosinophils Absolute Auto 0.0 0.0 - 0.4 X10*3/uL [facility] Basophils Absolute Auto 0.0 0.0 - 0.2 X10*3/uL [facility] NRBC Abs Auto 0.000 0.0 - 0.012 X10*3/uL [facility] 09/17/2024 1:26 PM EST 09/17/2024 1:34 PM EST Generic External Data Provider LAB BLOOD ORDERAB LES Final Result Performing Organization Address [facility] Co de Phone Number [facility] [address] [place] [phone] * Partial Thromboplastin Time, Activated (APTT) (09/17/2024 1:26 PM EST) Partial Thromboplastin Time 33.9 26.0 - 36.8 SEC [facility] Comment:For information rega rding the monitoring of direct thrombininhibitors, please refer to Pharmacy. 09/17/2024 1:26 PM EST 09/17/2024 1:34 PM EST Generic External Data Provider LAB BLOOD ORDERAB LES Final Result Performing Organization Address [facility] Co de Phone Number [facility] [address] [place] [phone] * (ABNORMAL) Prothrombin Time-INR (09/17/2024 1:26 PM EST) Prothrombin Time 10.5(L) 10.9 - 12.4 SEC [facility] INTERNATIONAL NORM RATIO 0.9 0.9 - 1.1 [facility] Comment:INTERNATIONAL NORMAL IZED RATIO (INR) [...] ORDERAB LES Final Result Performing Organization Address [facility] Co de Phone Number [facility] [address] [place] [phone] * Lipid Panel, Standard (09/17/2024 1:26 PM EST) Triglycerides 120 <150 mg/dL [facility] Comment:Desirable Triglyceri de: less than 150 mg/dLBorderline High Triglyceride 150-199 mg/dLHigh Triglyceride: 200-499 mg/dLVery High Triglyceride: greater than or equal to 5OO mg/dL Cholesterol 113 <200 mg/dL [facility] Comment:Desirable Cholestero l: less than 200 mg/dLBorderline High Cholesterol: 200-239 mg/dLHigh Cholesterol: greater than 239 mg/dL LDL Cholesterol Calculated 47 <100 mg/dL [facility] Comment:Desirable LDL: less than 100 mg/dLNear Optimal/Above Optimal LDL: 110- 129 mg/dLBorderline High LDL: 130-159 mg/dLHigh LDL: 160-189 mg/dLVery High LDL: greater than or equal to 190 mg/dL HDL Cholesterol 42 >40 mg/dL [facility] Comment:Desirable HDL: great er than 40 mg/dL Note: This HDL assay may give artificially low results in patients with liver disease. 09/17/2024 1:26 PM EST 09/17/2024 1:34 PM EST us Generic External Data Provider LAB BLOOD ORDERAB LES Final Result Performing Organization Address [facility]/ZIP Co de Phone Number [facility] [address] [place] [address] [phone] * (ABNORMAL) Glucose, Whole Blood (09/17/2024 1:24 PM EST) Glucose, Whole Blood 233(H) 60 - 115 mg/dL [facility] Comment:METER #: [id number] 09/17/2024 1:24 PM EST 09/17/2024 1:31 PM EST us Generic External Data Provider LAB BLOOD ORDERAB LES Final Result Performing Organization Address City/[facility] Co de Phone Number [facility] [address] [place] [phone] * PROTHROMBIN TIME WHOLE BLD POC (09/17/2024 1:24 PM EST) Protime 11.3 11.1 - 13.5 sec [facility] 09/17/2024 1:24 PM EST 09/17/2024 1:29 PM EST Generic External Data Provider LAB BLOOD ORDERAB LES Final Result Performing Organization Address [facility] Co de Phone Number [facility] [address] [place] [phone] * ~PT, ~INR - ANTI COAG CLINIC (09/17/2024 1:24 PM EST) Pathologist [facility] Prothrombin Time INR 0.9 0.9 - 1.1 [facility] Comment:METER #: [id number] TERNATIONAL NORMALIZED RATIO (INR) REFERENCE RANGES Reference [...] 1:24 PM EST 09/17/2024 1:29 PM EST Generic External Data Provider LAB BLOOD ORDERAB LES Final Result Performing Organization Address [facility] Co de Phone Number [facility] [address] [place] [phone] * XR Chest 1 View (09/17/2024 1:00 PM EST) Anatomical Region Laterality Modality Chest Radiographic Edilia ging 09/17/2024 1:00 PM EST Narrative 09/17/2024 1:28 PM EST ? [facility] ?[address] ?[place] [address] ?XRay Report ? Signed ? Patient: Cardenas Meehan,Toni ? MR#: [id number] ? : 1935 ?Acct:[id number] ? Age/Sex: 88 / M ?ADM Date: 09/17/24 ? Loc: HO.ED ? Attending Dr: ? Ordering Physician: Jesusita Szymanski ?? Date of Service: 09/17/24 ?? Procedure(s): XR chest 1V ?? Accession Number(s): [id number] ? cc: Jesusita Szymanski; Jolly Constantino MD [...] DD/ 1300 ? TD/TT: 09/17/24 1305 ? Rate Manager: MSM ? Procedure Note Isai Roper - 09/17/[address] [address] XRay Report Signed Patient: Toni Keys MR#: [id number] : 1936Acct:[id number] Age/Sex: 88 / MADM Date: 09/17/24 Loc: HO.ED Attending Dr: Ordering Physician: Jesusita Szymanski Date of Service: 09/17/24 Procedure(s): XR chest 1V Accession Number(s): [id number] cc: Jesusita Szymanski; Jolly Constantino MD EXAMINATION: [...] 09/17/24 1326 DD/ 1300 TD/TT: 09/17/24 1305 Rate Manager: ELIZABETH [facility] External Provider IMG XR PROCEDURES Final Result * CTA Head Stroke w/ and w/o Contrast (09/17/2024 12:58 PM EST) Anatomical Region Laterality Modality Computed Tomogra phy 09/17/2024 12:5 8 PM EST Narrative 09/17/2024 1:29 PM EST ? [facility] ?[address] ?[place] [address] ? CT Scan Report ? Signed ? Patient: Theresa Meehan,Toni ? MR#: [id number] ? : 1935 ?Acct:[id number] ? Age/Sex: 88 / M ?ADM Date: 09/17/24 ? Loc: HO.ED ? Attending Dr: ? Ordering Physician: Jesusita Szymanski ?? Date of Service: 09/17/24 ?? Procedure(s): CT angio head neck STROKE ?? Accession Number(s): [id number] ? cc: Jesusita Szymanski; Jolly Constantino MD ? Report Number: ?? [id number]: Total DLP = ??641.00 mGy-cm ?? EXAMINATION: [...] hemodynamically significant stenosis, or aneurysm. ?? Right PRODUCT PICKER: ??There is no large vessel occlusion, hemodynamically ?? significant stenosis, or aneurysm. ?? Left PRODUCT PICKER: ??There is no large vessel occlusion, hemodynamically [...] DD/ 1258 ? TD/TT: 09/17/24 1315 ? Rate Manager: ? Procedure Note Jacquelin, Isai - 09/17/[address] [address] [address] Scan Report Signed Patient: Toni Keys MR#: [id number] : 8Acct:[id number] Age/Sex: 88 / MADM Date: 09/17/24 Loc: HO.ED Attending Dr: Ordering Physician: Jesusita Szymanski Date of Service: 09/17/24 Procedure(s): CT angio head neck STROKE Accession Number(s): [id number] cc: Jesusita Szymanski; Jolly Constantino MD Report Number: [id number]: Total DLP = 641.00 mGy-cm EXAMINATION: CT [...] occlusion, hemodynamically significant stenosis, or aneurysm. Right PRODUCT PICKER: There is no large vessel occlusion, hemodynamically significant stenosis, or aneurysm. Left PRODUCT PICKER: There is no large vessel occlusion, hemodynamically [...] Jossue Phan MD 09/17/2024 01:26 PM EST RP Dictated By: Jossue Phan MD Signed By: <Electronically signed by Jossue Phan MD in OV> 09/17/24 1326 DD/ 1258 TD/TT: 09/17/24 1315 Rate Manager: [facility] External Provider IMG CT PROCEDURES Final Result * CT Head Stroke w/o Contrast (09/17/2024 12:56 PM EST) Anatomical Region Laterality Modality Computed Tomogra phy 09/17/2024 12:5 6 PM EST Narrative 09/17/2024 1:15 PM EST ? [facility] ?[address] ?[place] [address] ? CT Scan Report ? Signed ? Patient: Theresa Toni Meehan ? MR#: [id number] ? : 1935 ?Acct:[id number] ? Age/Sex: 88 / M ?ADM Date: 09/17/24 ? Loc: HO.ED ? Attending Dr: ? Ordering Physician: Jesusita Szymanski ?? Date of Service: 09/17/24 ?? Procedure(s): CT head for STROKE ?? Accession Number(s): [id number] ? cc: Jesusita Szymanski; Jolly Constantino MD ? Report Number: ?? [id number]: Total DLP = ??629.00 mGy-cm ?? EXAMINATION: [...] ??Jossue Phan MD ??09/17/2024 01:12 PM EST ? Dictated By: ?Jossue Phan MD ? Signed By: ?<Electronically signed by Jossue Phan MD in OV> ?09/17/24 1312 ? DD/ 1256 ? TD/TT: 09/17/24 1308 ? Rate Manager: ? Procedure Note Isai Roper - 09/17/[address] [address] [address] Scan Report Signed Patient: Theresa JimenezToni howell MR#: [id number] : 8Acct:[id number] Age/Sex: 88 / MADM Date: 09/17/24 Loc: HO.ED Attending Dr: Ordering Physician: Jesusita Szymanski Date of Service: 09/17/24 Procedure(s): CT head for STROKE Accession Number(s): [id number] cc: Jesusita Szymanski; Jolly Constantino MD Report Number: [id number]: Total DLP = 629.00 mGy-cm EXAMINATION: CT [...] by: Jossue Phan MD 09/17/2024 01:12 PM [facility] [place] Dictated By: Jossue Phan MD Signed By: <Electronically signed by Jossue Phan MD in OV> 09/17/24 1312 DD/ 1256 TD/TT: 09/17/24 1308 Rate Manager: [facility] External Provider IMG CT PROCEDURES Final [...] 4:06 PM EDT) Creatinine, Urine 29.23 mg/dL [facility] Microalbumin Urine 33.0 mg/L H [facility] Microalbum Creatinine Ratio Ur 112.8(H) <30 ug/mg cr [facility] Comment:Albumin/Creatinine R atio Reference Ranges: Normal: < 30 ug/mg creatinine Microalbuminuria: 30 - 300 ug/mg creatinineClinical Albuminuria: > 300 ug/mg creatinine Urine 01/25/2024 4:06 PM EDT 01/25/2024 5:41 PM EDT Jolly Constantino MD LAB URINE ORDERABLES Final Resul t Performing Organization Address City/State/[facility] Co de Phone Number [facility] [address] [place] [phone] * Diabetes Eye Exam (12/08/2023) Eye Exam Normal Normal 12/08/2023 Higinio John MD HEALTH MAINTENANCE Final Result from Last 3 Months or Most Recently Relevant to [place] [address] [facility] CORRECTION OPTIONS (HMO D-SNP) [facility] Care Teams Loom Fixer Supervisor Relationship Specialty Start Date End Date Jolly Constantino MD [address] [place] [phone] PCP - General Family Medicine 06/29/12 Javier Benton, PharmD [address] [place] [address] [place] [address] Pharmacist Internal Medicine 01/14/23
--- OUTSIDE RECORDS SUMMARY | 2024-11-07 17:00 | XMS_ITS | Encounter Summary ---
Author Organization [employer] Address [address] [place] [address] Care Team Providers Care Construction Teacher Name Role Phone Jolly London MD Primary Care Provider [phone] Javier Benton PharmD Unavailable [phone] Reason for Referral * Consultation (Urgent) - Closed Specialty Diagnoses / Procedures Referred By Contac t Referred To Contact Diagnoses Sensorineural hearing loss, bilateral Dizziness Jolly London MD [address] [place] [address] Phone: tel: fax: Fred Mann [address] [place] [address] Drive [address] [place], [place] [address] Phone: tel: fax: Referral ID Status Reason Start Date Expiration Date V isits Requested Visits Authorized [id number] Closed Specialty Services Required 10/10/2024 10/10/2025 1 1 Encounter Details Date Type Department Care Team (Late st Contact Info) Description 10/10/2024 Orders Only [facility] [address] [place], [place] [phone] Jolly London MD [address] [place], [place] [phone] Sensorineural hearing loss, bilateral (Primary Dx); Dizziness Social History Tobacco Use Types Packs/Day Years [...] Description 11/19/2024 3:30 PM EDT Office Visit [facility] [address] [place] [address] Jolly London MD [address] [place] [address] Scheduled Referrals Name Type Priority Associated Diagnoses Orde r Schedule Referral to ENT Outpatient Referral Urgent Sensorineural hearing loss, bilateral Dizziness Expected: 10/10/2024 (Approximate), Expires: 10/10/2025 documented as of this encounter Goals Goal Patient Goal Type Associated Problems Recent Progress Patient-Stated? Author Blood Pressure < 140/90 Blood Pressure 132/68( 025 2:29 PM EDT) No Javier Benton, PharmD documented as of this encounter Visit Diagnoses Diagnosis Sensorineural hearing loss, bilateral- Primary Dizziness Dizziness and giddiness documented in this encounter Additional Health Concerns Assessment Noted Time PHQ-9 Depression Total Score: 1 08/13/19 25 3:11 PM EST documented as of this encounter Care Teams Construction Teacher Relationship Specialty Start Date End Date Jolly London MD [address] [place] [address] PCP - General Family Medicine 06/29/12 Javier Benton, PharmD [address] [place] [address] Pharmacist Internal Medicine 01/14/23 documented as of this encounter
--- OUTSIDE RECORDS SUMMARY | 2024-11-07 17:00 | XMS_ITS | Encounter Summary ---
Author Organization [employer] Address [address] [place] [address] 7[address] [place] [address] Care Team Providers Care Eeg Tech Name Role Phone Jolly London MD Primary Care Provider [phone] Javier Benton PharmD Unavailable [phone] Reason for Visit * Reason Comments Med Refill Encounter Details Date Type Department Care Team (Late Contact Info) Description 10/14/2022 Refill [facility] [address] [place] [address] Ximena Harkins FNP [address] [place] [address] Dept [place] [address] Social History Tobacco Use Types Packs/Day Years [...] Encounters Date Type Department Care Team (Late Contact Info) Description 11/19/2024 3:30 PM EDT Office Visit [facility] [address] [place], [place] [phone] Jolly London MD [address] [place] [address] documented as of this encounter Visit Diagnoses Not on filedocumented in this encounter Care Teams Eeg Tech Relationship Specialty Start Date End Date Jolly London MD [address] [place] [phone] PCP - General Family Medicine 06/29/12 Javier Benton, AreliD [address] [place] [phone] Pharmacist Internal Medicine 01/14/23 documented as of this encounter
--- OUTSIDE RECORDS SUMMARY | 2024-11-07 17:00 | XMS_ITS | Data Portability ---
Author Organization [facility] [employer] [facility], Main Office Address [address] [facility], [address] [place] [address] Care Team Providers Care Brief Writer Name Role Phone QUENTIN MORGAN - 2ND FLOOR OTHER Assessment Encounter Date Assessment Date Assessment LastModified by Organization Details LastModified Time 02/28/2024 02/28/2024 I have seen and examined the patient independently and confirmed the findings above with the HOME CARE ADMINISTRATOR student note. Management plan discussed with the HOME CARE ADMINISTRATOR student personally. [email or web address] Not available 02/28/2024 14:09:16 03/01/2024 03/01/2024 45 mins. spent on coordination of discharge [email or web address] Not available 03/01/2024 15:25:32 Plan of Treatment Reminders Order Date Submit Date Provider Last Modified By Organization Details Last Modified Time Details Appointments None record ed. Lab None record ed. Referral None record ed. Procedures None record ed. Surgeries None record ed. Imaging None record ed. Medication Orders None record ed. Patient TargetsNo targets recorded. Patient InstructionsNo instructions recorded. Reason for Referral None Reported. Problems Name Problem SNOMED Code Status Onset Date Resolution Date Notes Provider Name and Address Organization Details Recorded Time Asthenia 64618186 Active 2023 KHALIDA NESBITT NP [address] [facility], [address], [place], [address], [facility] [employer] 4 10:39:59 Acute nontraumati c kidney injury 1923230377735 03 Active 2023 KHALIDA NESBITT NP [address] [facility], [address], [place], [address], [facility] [employer] 4 10:40:05 Urinary tract infectious disease 97780972 Active 2023 KHALIDA NESBITT NP [address] [facility], [address], [place], [address], [facility] [employer] [facility] 4 10:40:12 Hypomagnese kaitlin 152509107 Active 2023 KHALIDA NESBITT NP [address] [facility], [address], [place], [address], [facility] 4 10:40:29 Malignant tumor of prostate 604554107 Active 2023 XRT KHALIDA NESBITT NP [address] [facility], [address], [place], [address], [facility] [employer] [facility] 4 10:41:04 Type 2 diabetes mellitus without complicatio n 437488923 Active 2023 KHALIDA NESBITT NP [address] [facility], [address], [place], [address], [facility] [employer] [facility] 4 10:42:06 Hypertensiv e disorder 55135139 Active 2023 KHALIDA NESBITT NP [address] [facility], [address], [place], [address], [facility] [employer] [facility] 4 10:42:13 Hyperlipide kaitlin 29083043 Active 2023 KHALIDA NESBITT NP [address] [facility], [address], [place], [address], [facility] [employer] [facility] 4 10:42:18 Anemia 795219016 Active 2023 KHALIDA NESBITT NP [address] [facility], [address], [place], [address], [facility] 4 10:43:45 Problem Notes None recorded. Medical Equipment None Reported. Allergies Allergen ID Allergen Name Allergen Category Reaction Reaction Severity Criticality Documentation Date Start Date Code Code System Note Provider Name and Address Organization Details Recorded Time 50892 Keflex medicatio n Not available Not available Not available 02/22/2024 77674 7 RxNorm const ipati on Not Available Not Available Not Available 81281 oxycodone medicatio n Not available Not available Not available 02/22/2024 7804 RxNorm vomit ing, dizzi ness Not Available Not Available Not Available 66398 acetamino phen / oxycodone medicatio n Not available Not available Not available 02/22/2024 24884 3 RxNorm nause a, dizzi ness Not Available Not Available Not Available Medications Not known to be on any medication Vitals Date Recorded Heart rate Respiratory rate Body temperature Systolic blood pressure Diastolic blood pressure Provider Name and Address Organization Details Last Updated DateTime 4 110 /min 20 /min 97.9 [degF] 98 mm[Hg] 62 mm[Hg] KHALIDA NESBITT NP [address] [facility], [address], [place], [address] , [employer] 4 10:19:22 Date Recorded Heart rate Respiratory rate Body temperature Oxygen saturation Oxygen saturation in Arterial blood by Pulse oximetry Systolic blood pressure Diastolic blood pressure Provider Name and Address Organization Details Last Updated DateTime 4 109 /min 18 /min 98.1 [degF] 97 % 97 % 110 mm[Hg] 60 mm[Hg] KHALIDA NESBITT NP [address] [facility], [facility] [address], [place], [address] , [employer] 4 10:16:09 Date Recorded Body height Body mass index (BMI) Body weight Respiratory rate Body temperature Oxygen saturation Oxygen saturation in Arterial blood by Pulse oximetry Systolic blood pressure Diastolic blood pressure Provider Name and Address Organization Details Last Updated DateTime 4 157.48 cm 27.9 kg/m2 26724.8 4 g 18 /min 98.2 [degF] 96 % 96 % 150 mm[Hg] 81 mm[Hg] Mylene abrams [facility] 4 12:52:27 Date Recorded Body height Heart rate Respiratory rate Body temperature Oxygen saturation Oxygen saturation in Arterial blood by Pulse oximetry Systolic blood pressure Diastolic blood pressure Provider Name and Address Organization Details Last Updated DateTime 4 157.48 cm 96 /min 18 /min 97.8 [degF] 95 % 95 % 132 mm[Hg] 68 mm[Hg] KHALIDA NESBITT NP [address] [facility], [address], [place], [address] , [employer] 4 14:50:13 Date Recorded Systolic blood pressure Diastolic blood pressure Provider Name and Address Organization Details Last Updated DateTime 02/25/2024 110 mm[Hg] 73 mm[Hg] Mayo Gomez MD [address] [facility], [address], [place], [address], [facility] [employer] [facility] 02/25/2024 16:04:57 Social History Question Answer Notes LastModified by Organizat ion Details LastModified Time Tobacco Smoking Status Former Smoker quit over 10 yrs ago KHALIDA NESBITT NP [address] [facility], [address], [place], [address], [facility] [employer] [facility] 02/22/2024 11:06:58 What Is Your Level Of Alcohol Consumption? Occasional Social Information not available 02/22/2024 What Is Your Code Status? Full Code [email or web address] Information not available 02/22/2024 Where Do You Live? Apartment Elevator, No Stairs. Brother Nearby [email or web address] Information not available 02/22/2024 Do You Have A Medical Power Of Energy Derivatives Trader? Yes Has HCP [email or web address] Information not available 02/22/2024 What Was The Date Of Your Most Recent Tobacco Screening? 02/22/2024 [email or web address] Information not available 02/22/2024 Do You Have An Out Of Hospital DNR? No [email or web address] Information not available 02/22/2024 Have You Ever Been Counseled For Unhealthy Alcohol Use? No [email or web address] Information not available 02/22/2024 How Much Tobacco Do You Smoke? No [email or web address] Information not available 02/22/2024 Do You Use Any Illicit Or Recreational Drugs? No [email or web address] Information not available 02/22/2024 Has Tobacco Cessation Counseling Been Provided? No [email or web address] Information not available 02/22/2024 Do You Or Have You Ever Used Any Other Forms Of Tobacco Or Nicotine? No [email or web address] Information not available 02/22/2024 Sex: Unknown Functional Status None recorded. Mental Status None recorded. Family History Nothing Reported Notes:N/A Medical History No medical history recorded. Past Encounters Encounter ID Performer Location Encounter Start Date Encounter Closed Date Diagnosis/Indication Diagnosis SNOMED-CT Code Diagnosis ICD10 Code Diagnosis Note [id number] KHALIDA NESBITT NP [facility] [address] [place] [address] 02/22/2024 10:17:35 02/28/2024 14:23:59 Asthenia 40394970 R53.1 PT OT eval and tx. for reconditio klaudia, balance, strength, and gait trainingGo al is to return home. Hypomagnesemia 071608860 E83.42 Severe, <0.6 upon admit to hosp.Impro matias with supplement s and d/c of PPI.Discha rged on MagOx 800 mg tidPlan -Mg level q tuesday x 3Adjust dose prn Urinary tr act infectious disease 64199620 N39.0 ESBL E. ColiSeen by ID - now on ertapenem 1 gm IV qd x 10 days, last dose 813Contin ue phenazopyr idine 100 mg tid prnAdd probiotic 1 bid x 10 daysMonito r VS, lans, s/s infection. Maintain hydrationS till with moderate sx. but better than prior Acute nont raumatic kidney injury 8759659390 24309 N17.9 Improved with fluids and d/c of OTIS IMaintain fluidsMoni tor labs Type 2 lokesh betes mellitus without complication 477257680 E11.9 Continue metformin ER 750 mg bid, pioglitazo ne 45 mg qdCarb control dietPt. requesting BS TID AC, will orderMonit or Hypertensive disorder 38 120385 I10 Currently on norvasc 5 mg qdLisinopr il 40 mg qd stopped in hosp. due to AKIMonitor VS, labs, need to adjust meds/ Hyperlipidemia 26124600 E78.5 Continue atorvastat in 20 mg qdLabs prn Anemia 701304567 D64.9 Continue home meds:Fe SO4 325 mg qdVit C 500 mg qdB 12 1000 mcg qd Malignant tumor of prostate 427818642 C61 myrbetriq 50 mg qd Aspirin th erapy finding 122874832 Z79.82 unsure why he is currently takingwill continue ASA 81 mg qd for now [id number] KHALIDA NESBITT NP [address] [address] 02/23/2024 10:13:03 02/28/2024 15:24:45 Asthenia 21529569 R53.1 PT OT eval and tx. for reconditio klaudia, balance, strength, and gait trainingGo al is to return home. Hypomagnesemia 790497802 E83.42 Severe, <0.6 upon admit to hosp.Impro matias with supplement s and d/c of PPI.Discha rged on MagOx 800 mg tidCurrent Mg level 02/21 = 1.9Plan -Mg level q tuesday x 3Adjust dose prn Urinary tr act infectious disease 64031658 N39.0 ESBL E. ColiSeen by ID - now on ertapenem 1 gm IV qd x 10 days, continue, last dose ill with burning and dysuriaPla n -sched. phenazopyr idine 100 mg tid x 3 days - start SIM, then change back to prnConside r diflucan, ? yeast component contributi ng to dysuriacon tinue probiotic 1 bid x 10 daysMonito r VS, lans, s/s infection. Maintain hydrationS till with moderate sx. but better than prior Acute nont raumatic kidney injury 5556559119 69309 N17.9 Improved with fluids and d/c of OTIS ICMP yesterday with K of 5.4Maintai n fluidsMoni tor labs - BMP q . x 3 Type 2 lokesh betes mellitus without complication 996284649 E11.9 Continue metformin ER 750 mg bid, pioglitazo ne 45 mg qdCarb control dietBS TID AC per pt. requestMon itor Hypertensive disorder 38 154859 I10 So far in good controlCur rently on norvasc 5 mg qd - continueLi sinopril 40 mg qd stopped in hosp. due to AKIMonitor VS, labs, need to adjust meds Hyperlipidemia 62484311 E78.5 Continue atorvastat in 20 mg qdLabs prn Anemia 491445129 D64.9 Continue home meds:Fe SO4 325 mg qdVit C 500 mg qdB 12 1000 mcg qd Malignant tumor of prostate 024754517 C61 myrbetriq 50 mg qd Aspirin th erapy finding 286261382 Z79.82 unsure why he is currently takingwill continue ASA 81 mg qd for now Tachycardia 4687086 R00. 0 HR running in low 100s here, regular rateAsympt omatic.Uns ure of baseline Plan -continue to monitor closelymai ntain po fluidstrea t infectiont rend labsconsid er metoprolol in place of norvasc to help reduce HR [id number] Mayo Gomez MD [address] [address] 02/25/2024 16:04:10 02/28/2024 15:54:08 Asthenia 46273526 R53.1 PT OT eval and treatmonit or fall risk and need for increased support in community Hypomagnesemia 117030431 E83.42 repleted in hospital now onMg supplement monitor lytes and need to titrate Urinary tr act infectious disease 79159733 N39.0 see HPIeval by ID and to complete course of ertapenema dd probioticm onitor for recurrent diseaseif dysuria continues repeat UA Acute nont raumatic kidney injury 7079048453 83303 N17.8 OTIS-I d/c'edmoni tor renal functionav oid nephrotoxi c meds as ablenephro consult prn Type 2 lokesh betes mellitus without complication 892079501 E11.9 metformin 750 mg bidpioglit azone 45 mg qdmonitor blood glucose prn and need to adjust medication Hypertensive disorder 38 319731 I10 OTIS-I d/c'edmain tained onnorvasc 5 mg qdmonitor bp and need to titrate Hyperlipidemia 04406772 E78.2 lipitor 20 mg qdcontinue d Anemia 472495724 D50.8 question anemia of chronic diseasemon itor cbciron studies prn Malignant tumor of prostate 786565281 C61 carrying dx added to PMHmaintai toney on myrbetriq 50 mg qdcontinue d Aspirin th erapy finding 131171778 Z79.82 unsure why he is currently takingwill continue ASA 81 mg qd for now [id number] KHALIDA NESBITT NP [facility] [address] [address] 02/28/2024 12:37:20 02/29/2024 13:01:36 Urinary tract infectious disease 58839555 N39.0 Burning, dysuria finally improving; now minimal.LD IV ABT ertapenem today, consuelo. well.Curre ntly on: Myrbetriq 50 mg dailyCompl eted 3 days of sched. Phenazopyr idine 100 mg every 8 hours, prn order remains in place.Megan tor symptoms closely Acute nont raumatic kidney injury 6610214881 05996 N17.8 Remains off OTIS-inhibi torsavoid nephrotoxi c meds as ablemonito r renal functionne phro consult prn Hypomagnesemia 317240290 E83.42 Mg level on 02/27/24 2.6Reduce Mag Ox to 800 mg bidContinu e to monitor labs and need to titrate Asthenia 52440745 R53.1 DUMAS-low fall risk 02/22/24Cont inue PT OT, goal is to return homemonito r fall risk and need for increased support in community Type 2 lokesh betes mellitus without complication 472704278 E11.9 In good controlCon tinue:metf ormin 750 mg bidpioglit azone 45 mg qdmonitor blood glucose TID per pt request Hypertensive disorder 38 224617 I10 Remains off OTIS inhibitors managed with norvasc 5 mg qdContinue to monitor bp and need to titrate Anemia 675254583 D50.8 H+H stableAsym tptomaticF eSo4 325 mg dailyConti nue to monitor cbc Hyperlipidemia 28339501 E78.2 Continue lipitor 20 mg qdMonitor labs Malignant tumor of prostate 948418617 C61 carrying dx, PMHContinu e myrbetriq 50 mg qdMonitor sx Aspirin th erapy finding 631803877 Z79.82 unknown reason for takingCont inue ASA 81 mg qd for now Hyperkalemia 94488288 E8 7.5 02/27/24 K 5.8Not on OTIS I, ARBwas given Sodium Polystyren e Sulfonate Suspension 15 GM X 1Asymptoma ticMonitor Labs as outpt. [id number] KHALIDA NESBITT NP [address] [place] [address] 03/01/2024 14:48:03 03/05/2024 15:25:14 Urinary tract infectious disease 41674362 N39.0 Burning, dysuria finally resolved.C ompleted IV ertapenem, consuelo. well.VSSLa bs stable Monitor symptoms closely as outpt. Hyperkalemia 99355086 E8 7.5 02/27/24 K 5.8, repeat 02/28 5.2Not on OTIS I, ARBEncoura ge fluidsMoni tor Labs as outpt. Acute nont raumatic kidney injury 7906284016 80744 N17.8 Remains off OTIS-inhibi torsavoid nephrotoxi c meds as ablemonito r renal function - still with mild elevation in Creat - 1.49 on 02/28Encour age po fluidsMoni tor as outpt. Hypomagnesemia 106199162 E83.42 Mg level on 02/27/24 2.6Reduced Mag Ox from 800 mg tid to 800 mg bidContinu e to monitor labs and need to titrate as outpt. Asthenia 08941648 R53.1 DUMAS-low fall risk 02/22/24Cont inue PT OT, meeting goals, home tomorrow with meds and services.m onitor fall risk and need for increased support in community Type 2 lokesh betes mellitus without complication 909878340 E11.9 In good control, 100s.Danisha nue:metfor min 750 mg bidpioglit azone 45 mg qdmonitor blood glucose TID per pt request Hypertensive disorder 38 691159 I10 Remains off OTIS inhibitors managed with norvasc 5 mg qdContinue to monitor bp and need to titrate Anemia 962167301 D50.8 H+H stableAsym tptomaticF eSo4 325 mg dailyStool s reported as dark, ? from oral Fe - monitorCon tinue to monitor cbc Hyperlipidemia 04929322 E78.2 Continue lipitor 20 mg qdMonitor labs Malignant tumor of prostate 299035622 C61 carrying dx, PMHContinu e myrbetriq 50 mg qdMonitor sx Aspirin th erapy finding 568429926 Z79.82 unknown reason for takingCont inue ASA 81 mg qd for now Health Concerns Section Related Observation LastModified by Organization Detai ls LastModified Time None Recorded Concern Status LastModified by Organization Details LastModified Time None Recorded Advance Directives Directive None Recorded Payers Encounter Date Sequence Insurance Name Policy Number Policy [place] Covered Member ID [place] Member ID Guarantor Name 02/22/[address] [facility] - DOS ON OR AFTER 2022 - MEDICARE [place]AGE [place]/AD VANTAGE - PPO) Toni Cardenasteresita Meehan [id number] Toni Cardenas Meehan 02/23/2024 1 [facility] - DOS ON OR AFTER 2022 - [place]/AD VANTAGE - PPO) Tonirafia Salazaria Meehan [id number] Tonirafia Cardenas Meehan 02/25/2024 1 [facility] - DOS ON OR AFTER 2022 - [place]ANTAGE - [place]PO) Tonirafia Cardenas Meehan [id number] Toniysabel Cardenas Meehan 02/28/2024 1 [facility] - DOS ON OR AFTER 2022 - [place]ANTAGE - [place]PO) Toni Cardenas Meehan [id number] Toni Cardenas Meehan 03/01/[address] [facility] - DOS ON OR AFTER 2022 - [place]AC[place]/AD VANTAGE - PPO) Toni Cardenas Meehan [id number] Toni Cardenas Meehan Notes Date Note Type Note Provider Name and Address Organization Details Recorded Time 02/22/2024 text/html Toni is seen today for admission. He is an 88 yo male, admitted to [facility] 02/21/24 from [facility] for continued care and rehab after a brief hosp. due to low Mg., UTI, RONEY. He presented to [facility] 02/16 with weakness x 1 wk. and dysuria, left flank pain. Also reported diarrhea a few days prior, but no BM in 2 days.Labs in ER show increase in Creat. 1.22 -> 1.66 as well as Mg level below 0>6.PPI stopped, supplemented with Mg. with improvement in Mg. levels.Noted to have black stool, testing OB neg., CBC stable, so unlikely melena.Found to have ESBL E. Coli UTI - seen by ID, recommended 10 days of ertapenem, last date 02/27.RONEY - OTIS I stopped with improvement in levels.DM - SSIHTN - amlodipine continued. Upon exam, Toni is sitting in a chair in the [place] near his room. Alert, NAD, appears much younger than stated age. child nutrition assistant present for visit.Overall, Toni is feeling good. He is still having some dysuria and urgency, but not as bad as when admitted to the hospital. Moving bowels, stool soft but not watery. Right now he wants to stay close to a bathroom, hesitates to ambulate with rehab as doesn't want to be far from a bathroom. Denies abd. pain, N/V. Appetite fair for breakfast, coffee was cold. Denies feeling weak or dizzy. No SOB, cough, CP. Denies pain. No issues with IV site. Is concerned he is not getting his BS done, he monitors it closely at home. DUMAS: low fall risk PMH: HTN, HLD, prostate CA s/p XRT, DM2, anemiaFull code KHALIDA NESBITT, DESEAN [address] [facility], [address], [place], [address], [facility] [employer] 02/22/2024 11:37:32 02/23/2024 text/html Toni is seen today for an acute visit. He is an 88 yo male, admitted to [facility] 02/21/24 from [facility] for continued care and rehab after a brief hosp. due to low Mg., UTI, RONEY. He presented to [facility] 02/16 with weakness x 1 wk. and dysuria, left flank pain. Also reported diarrhea a few days prior, but no BM in 2 days.Labs in ER show increase in Creat. 1.22 -> 1.66 as well as Mg level below 0>6.PPI stopped, supplemented with Mg. with improvement in Mg. levels.Noted to have black stool, testing OB neg., CBC stable, so unlikely melena.Found to have ESBL E. Coli UTI - seen by ID, recommended 10 days of ertapenem, last date 02/27.RONEY - OTIS I stopped with improvement in levels.DM - SSIHTN - amlodipine continued. So far since admission, Toni is tolerating his antibiotics well. He continues to complain of burning and dysuria. No diarrhea today. Taking po. BS 130.Working with rehab.VSS, HR documented in PCC above 100.Labs yesterday stable. Mg 1.9 Upon exam, Toni is resting in bed. Alert, pleasant, concerned he is still symptomatic for UTI with burning and dysuria. Otherwise no complaints. DUMAS: low fall risk PMH: HTN, HLD, prostate CA s/p XRT, DM2, anemiaFull code KHALIDA NESBITT, DESEAN [address] [facility], [address], [place], [address], [facility] [employer] [facility] 02/23/2024 10:37:44 02/25/2024 text/html Patient is an 88 yo male admit from hospital after presenting with weakness, dysuria and flank pain. Noted low Mg, in ARF. Dx with UTI. PPI was held and started on Mg supplement. Eval by ID and started on ertapenem. 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 He is an 88 year old male who was admitted here on 02/21/24 after hospital visit for UTI and low Mg level. Requiring continued care and rehab due to IV antibiotics and deconditioning. Toni presented to [facility] on 02/16 with weakness, dysuria, and left flank pain. While there he was found to have a low Mg (<0.6) and RONEY (Creat. 1.22 -> 1.66). His PPI was held and Mg supplement was added, OTIS inhibitor was dc due to ARF, ID was consulted and he started on IV ertapenem X 10 days for ESBL UTI, LD due 02/28/24. He also was noted to have Black stool in ER but CBC was stable and OB neg, unlikely melena.DM - managed on: Metformin ER 750 mg daily, Pioglitazone 45 mg dailyHTN - amlodipine 5 mg Since here Toni has been doing well.Working with rehab, getting stronger.Tolerating antibiotics well, VSS.BS mid 100s.Labs monitored and overall stable, Mg level up to 2.6. K 5.8. Given kayexalate 15 gm x 1 dose yesterday, remains on Mag Ox 800 mg tid.Due to continued complaints of dysuria last week, pyridium was scheduled for 3 days. Upon exam, Toni is feeling much better. Showcase Maker present. Minimal dysuria. Worried that he didn't pee yet today, but was able to pass urine this afternoon. Asked if he was drinking enough, and he wasn't sure. No other complaints. Moving bowels. DUMAS: low fall risk PMH: HTN, HLD, prostate CA s/p XRT, DM2, anemiaMOLST: Full code KHALIDA NESBITT NP [address] [facility], [address], [place], [address], [facility] [employer] 02/28/2024 16:12:08 03/01/2024 text/html Toni is seen today for discharge. He is an 88 year old male who was admitted to [facility] on 02/21/24 after a hospital visit for UTI and low Mg level. He required continued care and rehab due to IV antibiotics and deconditioning. Toni presented to [facility] on 02/16 with weakness, dysuria, and left flank pain. While there he was found to have a low Mg (<0.6) and RONEY (Creat. 1.22 -> 1.66). His PPI was held and Mg supplement was added, OTIS inhibitor was dc due to ARF, ID was consulted and he started on IV ertapenem X 10 days for ESBL UTI, LD due 02/28/24. He also was noted to have Black stool in ER but CBC was stable and OB neg, unlikely melena.DM - managed on: Metformin ER 750 mg daily, Pioglitazone 45 mg dailyHTN - amlodipine 5 mg Since here Toni has done well.Working with rehab, getting stronger, meeting goals for d/c home tomorrow with support of services.VSS.Antibioti cs now complete.Midline removed from LUE with ease, 15 cm, no bleeding, consuelo. procedure well.BS mid 100s.Labs monitored and overall stable, Mg level up to 2.6. Mag Ox reduced to 800 mg bid. K 5.8, repeat 5.2. Upon exam, Toni is feeling much better. Showcase Maker present. No further dysuria. Denies feeling weak or dizzy. No SOB, cough, CP. No GI upset, taking po. Reports passing some dark BM, but no BRB. Happy to be returning home. DUMAS: low fall riskPMH: HTN, HLD, prostate CA s/p XRT, DM2, anemiaMOLST: Full code KHALIDA NESBITT NP [address] [facility], [address], [place], [id number], [facility] 03/01/2024 15:25:48
--- OUTSIDE RECORDS SUMMARY | 2024-11-07 17:00 | XMS_ITS | Encounter Summary ---
Author Organization [employer] Address [address] [facility] 7t [place] [address] Care Team Providers Care Shrinker Name Role Phone Jolly London MD Primary Care Provider [phone] Javier Benton PharmD Unavailable [phone] Encounter Details Date Type Department Care Team (Late st Contact Info) Description 02/28/2023 Orders Only [facility] [address] [place] [address] [phone] Jolly London MD [address] [place] [address] [phone] Anemia of chronic disorder (Primary Dx); Hyperkalemia [...] Description 11/19/2024 3:30 PM EDT Office Visit [facility] [address] [place] [address] [phone] Jolly London MD [address] [place] [address] [phone] Scheduled Orders Name Type Priority Associated Diagnoses [...] documented as of this encounter Care Teams Shrinker Relationship Specialty Start Date End Date Jolly London MD [address] [place] [address] PCP - General Family Medicine 06/29/12 Javier Benton, PharmD [address] [place] [address] Pharmacist Internal Medicine 01/14/23 documented as of this encounter
--- OUTSIDE RECORDS SUMMARY | 2024-11-07 17:00 | XMS_ITS | Encounter Summary ---
Author Organization [employer] Address [address] [facility] 7t [place] [address] Care Team Providers Care Dental Prosthetist Name Role Phone Jolly London MD Primary Care Provider [phone] Javier Benton PharmD Unavailable [phone] Encounter Details Date Type Department Care Team (Late st Contact Info) Description 03/07/2024 Orders Only [facility] [address] [place], [place] [phone] Jolly London MD [address] [place], [place] [phone] Social History Tobacco Use Types Packs/Day Years [...] Office Visit [facility] [address] [place], [place] [phone] Jolly London MD [address] [place] [address] documented as of this encounter Goals Goal [...] documented as of this encounter Care Teams Dental Prosthetist Relationship Specialty Start Date End Date Jolly London MD [address] [place] [address] PCP - General Family Medicine 06/29/12 Javier Benton, AreliD [address] [place] [address] [phone] Pharmacist Internal Medicine 01/14/23 documented as of this encounter
--- OUTSIDE RECORDS SUMMARY | 2024-11-07 17:00 | XMS_ITS | Patient Health Record ---
Author Organization [facility]illing [facility] Address [address] [place] [address] [place] [address] Care Team Providers Care Automation Controls Engineer Name Role Phone Nadia Black Primary Care Provider CRIS Lr Unavailable [phone] Allergies No Known Allergies Reason For Referral [...] Problem Status W/U Status Risk Notes Problem [id number] Urinary frequenc y (R35.0) Active confirmed Problem [id number] Prostate cancer (C61) Active confirmed Problem [id number] Urge incontinenc e of urine (N39.41) Active confirmed Plan Of Treatment No Information Insurance Providers Payer Name Payer Address Payer Phone Subscriber Number Group Number Insured Name Patient Relationship to Insured Coverage Start Date Coverage End Date [facility] [address] TELMA BOATENG [id number] Toni Leyva Self - patient is the insured 8 [facility] [address] [place], [place] [id number] Toni Leyva Self - patient is the insured 1 1 MEDICARE [place] PART B [address] [facility] TELMA YOUNG [id number] Toni Leyva Self - patient is the insured Medical (General) History Medical History History ICD Code Prostate cancer Diabetes mellitus Hypertension Hyperlipidemia Constipation UTI Hemriods Surgical History Surgery Date(Month/Year) prostate circumcision cataract surgery
--- OUTSIDE RECORDS SUMMARY | 2024-11-07 17:00 | XMS_ITS | Encounter Summary ---
Author Organization [employer] Address [address] [facility] 7t [place] [address] Care Team Providers Care Funeral Limousine Driver Name Role Phone Jolly Lnodon MD Primary Care Provider [phone] Javier Benton PharmD Unavailable [phone] Reason for Visit * Reason Comments Med Refill Encounter Details Date Type Department Care Team ([facility] st Contact Info) Description 03/11/2024 Refill [facility] [address] [place] [address] Jolly London MD [address] [place], [place] [phone] Helicobacter pylori gastrointestinal tract infection Social History [...] Description 11/19/2024 3:30 PM EDT Office Visit [facility] [address] [place] [address] Jolly London MD [address] [place] [address] documented as of this encounter Goals Goal Patient Goal Type Associated Problems Recent Progress Patient-Stated? Author Blood Pressure < 140/90 Blood Pressure 132/68( 025 2:29 PM EDT) No Javier Benton PharmD documented as of this encounter Visit Diagnoses Diagnosis Helicobacter pylori gastrointestinal tract infection Intestinal infection due to other gram-negative bacteria documented in this encounter Additional Health Concerns Assessment Noted Time PHQ-9 Depression Total Score: 0 02/15/20 23 1:30 PM EDT documented as of this encounter Care Teams Funeral Limousine Driver Relationship Specialty Start Date End Date Jolly London MD [address] [place] [phone] PCP - General Family Medicine 06/29/12 Javier Benton PharmD [address] [place] [address] [phone] Pharmacist Internal Medicine 01/14/23 documented as of this encounter
--- OUTSIDE RECORDS SUMMARY | 2024-11-07 17:00 | XMS_ITS | Encounter Summary ---
Author Organization [employer] Address [address] [facility] 7t [place] [address] Care Team Providers Care Oscillograph Technician Name Role Phone Jolly London MD Primary Care Provider [phone] Javier Benton PharmD Unavailable [phone] Encounter Details Date Type Department Care Team ([facility] st Contact Info) Description 11/07/2024 Orders Only [facility] [address] [place], [place] [phone] Jolly London MD [address] [place] [address] Social History Tobacco Use Types Packs/Day Years [...] Description 11/19/2024 3:30 PM EDT Office Visit [facility] [address] [place], [place] [phone] Jolly London MD [address] [place] [address] documented as of this encounter Goals Goal Patient Goal Type Associated Problems Recent Progress Patient-Stated? Author Blood Pressure < 140/90 Blood Pressure 132/68( 025 2:29 PM EDT) Javier Mike, AreliD documented as of this encounter Procedures Procedure Name Priority Date/Time Associated Diagnosis Comments BASIC METABOLIC PANEL Routine 11/07/2024 2:09 PM EDT documented in this encounter Results * (ABNORMAL) Basic Metabolic Panel (11/07/2024 2:09 PM EDT) Sodium 138 135 - 145 mmol/L [facility] Potassium 4.6 3.3 - 5.1 mmol/L [facility] Chloride 104 96 - 108 mmol/L [facility] Carbon Dioxide 27 22 - 29 mmol/L [facility] Anion Gap 12 12 - 20 [facility] Urea Nitrogen (BUN) 26(H) 9 - 16 mg/dL [facility] Creatinine, Serum 1.32 0.5 - 1.4 mg/dL [facility] Estimated Glomerular Filt Rate 51 [facility] Comment:Chronic Kidney Disea se: Estimated GFR < 60 mL/min/[id number] Kidney Disease: Estimated GFR < 15 mL/min/1.73m2 Glucose 243(H) 60 - 115 mg/dL [facility] Calcium 9.4 8.4 - 10.2 mg/dL [facility] 11/07/2024 2:09 PM EDT 11/07/2024 3:53 PM EDT us Jolly London MD LAB BLOOD ORDERABLES Final Resul t [facility] [address] [place] [address] [phone] documented in this encounter Visit Diagnoses Not on filedocumented in this encounter Additional Health Concerns Assessment Noted Time PHQ-9 Depression Total Score: 1 08/13/19 25 3:11 PM EST documented as of this encounter Care Teams Oscillograph Technician Relationship Specialty Start Date End Date Jolly London MD [address] [place] [address] PCP - General Family Medicine 06/29/12 Javier Benton, AreliD [address] [place] [address] Pharmacist Internal Medicine 01/14/23 documented as of this encounter
--- OUTSIDE RECORDS SUMMARY | 2024-11-07 17:00 | XMS_ITS | Encounter Summary ---
Author Organization [employer] Address [address] [facility] 7t [place] [address] Care Team Providers Care Dump Motor Operator Name Role Phone Jolly London MD Primary Care Provider [phone] Javier Benton PharmD Unavailable [phone] Encounter Details Date Type Department Care Team (Latest Contact Info) Description 11/07/2024 Travel Social History Tobacco Use Types Packs/Day Years [...] Description 11/19/2024 3:30 PM EDT Office Visit [facility] [address] [place] [address] Jolly London MD [address] [place] [address] documented as of this encounter Goals Goal [...] documented as of this encounter Care Teams Dump Motor Operator Relationship Specialty Start Date End Date Jolly London MD [address] [place] [address] PCP - General Family Medicine 06/29/12 Javier Benton, AreliD [address] [place] [phone] Pharmacist Internal Medicine 01/14/23 documented as of this encounter
--- OUTSIDE RECORDS SUMMARY | 2024-11-07 17:00 | XMS_ITS | Encounter Summary ---
Author Organization [employer] Address [address] [facility] 7t [place] [address] Care Team Providers Care Campus Safety Officer Name Role Phone Jolly London MD Primary Care Provider [phone] Javier Benton PharmD Unavailable [phone] Reason for Referral * Consultation (Routine) - Closed Specialty Diagnoses / Procedures Referred By Contac t Referred To Contact Audiology Diagnoses Sensorineural hearing loss, bilateral Jolly London MD [address] [place] [address] Phone: tel: fax: [facility] [address] 1[address] Floor [place], [place] Phone: tel: fax: Referral ID Status Reason Start Date Expiration Date V isits Requested Visits Authorized [id number] Closed Specialty Services Required 10/10/2024 10/10/2025 1 1 Encounter Details Date Type Department Care Team (Late st Contact Info) Description 10/10/2024 Orders Only [facility] [address] [place] [address] Jolly London MD [address] [place] [address] Sensorineural hearing loss, bilateral (Primary Dx) Social History Tobacco Use Types [...] Description 11/19/2024 3:30 PM EDT Office Visit [facility] [address] [place] [address] Jolly London MD [address] [place] [address] Scheduled Referrals Name Type Priority Associated Diagnoses Orde r Schedule Referral to Audiology Outpatient Referral Routine Sensorineural hearing loss, bilateral Expected: 10/10/2024 (Approximate), Expires: 10/10/2025 documented as of this encounter Goals Goal Patient Goal Type Associated Problems Recent Progress Patient-Stated? Author Blood Pressure < 140/90 Blood Pressure 132/68( 025 2:29 PM EDT) No Javier Benton, PharmD documented as of this encounter Visit Diagnoses Diagnosis Sensorineural hearing loss, bilateral- Primary documented in this encounter Additional Health Concerns Assessment Noted Time PHQ-9 Depression Total Score: 1 08/13/19 25 3:11 PM EST documented as of this encounter Care Teams Campus Safety Officer Relationship Specialty Start Date End Date Jolly London MD [address] [place] [address] PCP - General Family Medicine 06/29/12 Javier Benton, PharmD [address] [place] [address] Pharmacist Internal Medicine 01/14/23 documented as of this encounter
--- OUTSIDE RECORDS SUMMARY | 2024-11-07 17:00 | XMS_ITS | Encounter Summary ---
Author Organization [employer] [facility] Address [address] [facility] 7t [place] [address] Care Team Providers Care Substance Abuse Technician Name Role Phone Jolly London MD Primary Care Provider [phone] Javier Benton PharmD Unavailable [phone] Encounter Details Date Type Department Care Team (Late st Contact Info) Description 06/07/2022 Abstract [facility] [address] [place] [phone] Jolly London MD [address] [place] [phone] Social History Tobacco Use Types Packs/Day Years [...] Description 11/19/2024 3:30 PM EDT Office Visit [facility] [address] [place] [address] [phone] Jolly London MD [address] [place] [address] [phone] documented as of this encounter Visit Diagnoses Not on filedocumented in this encounter Care Teams Substance Abuse Technician Relationship Specialty Start Date End Date Jolly London MD [address] [place] [address] PCP - General Family Medicine 06/29/12 Javier Benton, AreliD [address] [place] [phone] Pharmacist Internal Medicine 01/14/23 documented as of this encounter
--- OUTSIDE RECORDS SUMMARY | 2024-11-07 17:00 | XMS_ITS | Encounter Summary ---
Author Organization [employer] Address [address] [facility] 7t [place] [address] Care Team Providers Care Rural Service Engineer Name Role Phone Jolly London MD Primary Care Provider [phone] Javier Benton PharmD Unavailable [phone] Reason for Referral * Consultation (Routine) - Closed Specialty Diagnoses / Procedures Referred By Contac t Referred To Contact Otolaryngology Diagnoses Dizziness Sensorineural hearing loss, bilateral Jolly London MD [address] [place] [address] Phone: tel: fax: [facility] [address] Phone: tel: fax: Referral ID Status Reason Start Date Expiration Date V isits Requested Visits Authorized [id number] Closed Specialty Services Required 10/15/2024 10/15/2025 1 1 Encounter Details Date Type Department Care Team (Late st Contact Info) Description 10/10/2024 Orders Only [facility] [address] [place] [address] Jolly London MD [address] [place] [address] Dizziness (Primary Dx); Sensorineural hearing loss, bilateral Social History Tobacco Use Types Packs/Day Years [...] Description 11/19/2024 3:30 PM EDT Office Visit [facility] [address] [place] [address] Jolly London MD [address] [place] [address] Pending Results Name Type Priority Associated Diagnoses Date /Time Referral to ENT Outpatient Referral Routine Dizziness Sensorineural hearing loss, bilateral 10/16/2024 Scheduled Referrals Name Type Priority Associated Diagnoses Orde r Schedule Referral to ENT Outpatient Referral Routine Dizziness Sensorineural hearing loss, bilateral Expected: 10/15/2024 (Approximate), Expires: 10/15/2025 documented as of this encounter Goals Goal Patient Goal Type Associated Problems Recent Progress Patient-Stated? Author Blood Pressure < 140/90 Blood Pressure 132/68( 025 2:29 PM EDT) No Javier Benton, Marc documented as of this encounter Visit Diagnoses Diagnosis Dizziness- Primary Dizziness and giddiness Sensorineural hearing loss, bilateral documented in this encounter Additional Health Concerns Assessment Noted Time PHQ-9 Depression Total Score: 1 08/13/19 25 3:11 PM EST documented as of this encounter Care Teams Rural Service Engineer Relationship Specialty Start Date End Date Jolly London MD [address] [place] [address] PCP - General Family Medicine 06/29/12 Javier Benton, PharmD [address] [place] [address] Pharmacist Internal Medicine 01/14/23 documented as of this encounter
--- OUTSIDE RECORDS SUMMARY | 2024-11-07 17:00 | XMS_ITS | Data Portability ---
Author Organization [place] - [facility] Address [address] [place] [address] Assessment Encounter Date Assessment Date Assessment LastModified by Organization Details LastModified Time 01/05/2021 01/05/2021 Pt to provide medical records from Prev PCP at next visit. Consider labs at next f/u [email or web address] Not available 01/05/2021 15:26:09 01/12/2021 01/12/2021 Reviewed records from [place] Date of last visit 10/15/20 Problem list updated. [email or web address] Not available 01/12/2021 13:07:10 01/20/2021 01/20/2021 Reviewed records [place] Date of last visit 10/15/20 Problem list updated. [email or web address] Not available 01/20/2021 14:07:00 04/10/2021 04/10/2021 Reviewed records [place] Date of last visit 10/15/20 Problem list updated. [email or web address] Not available 04/13/2021 08:45:42 07/15/2021 07/15/2021 Reviewed records [place] Date of last visit 10/15/20 Problem list updated. Not available 07/15/2021 15:03:41 Plan of Treatment Reminders Order Date Submit Date Provider Last Modified By Organization Details Last Modified Time Details Appointments None recorded. Lab CBC w/ auto diff 2020 021 ORDWAY [facility], [address] [place], [address], 13:36:40 TIBC (total iron-bindin g capacity), serum 2020 021 MARIPOSA [facility], [address] [place], [address], 1 13:36:42 CMP, serum or plasma 2020 021 [facility], [address] [place], [address], 1 13:36:41 lipid panel, serum 2020 021 [facility], [address] [place], [address], 1 13:36:42 HbA1c (hemoglobin A1c), blood 2020 021 [facility], [address] [place], [address], 13:36:43 microalbumi n/creatinin e, mass ratio, urine 2020 021 [facility], [address] [place], [address], 13:36:43 urinalysis, dipstick [email or web address] [place] [address] Care, [address], [place], [address], 10:24:06 HbA1c (hemoglobin A1c), blood 2020 021 [facility], [address] [place], [address], 1 13:37:08 microalbumi n/creatinin e, mass ratio, urine 2020 021 [facility], [address] [place], [address], 1 13:37:07 CMP, serum or plasma 2020 021 [facility], [address] [place], [address], 1 13:37:05 lipid panel, serum 2020 021 [facility], [address] [place], [address], 1 13:37:06 CBC w/ auto diff 2020 021 [facility], [address] [place], [address], 1 13:37:04 urinalysis, dipstick 2020 [email or web address] 81 [facility], [address], [place], [address], 14:27:26 Referral ENT referral - Reports fullness to left ear. Has insect removal 3 weeks ago- with abrasion . Txd with Ciprodex gtts x 1 week 2020 [email or web address] [facility], [address], [place], [address], 2 17:31:06 urologist referral - urinary symptoms hx prostate cancer 2020 021 MARIPOSA Vazquez MD ([facility]), [address], [place], [address], 14:14:48 Procedures None recorded. Surgeries None recorded. Imaging None recorded. Medication Orders ferrous sulfate 325 mg (65 mg iron) tablet,abel yed release 2020 021 [address] [facility], [address], [place], [address], 15:19:26 Vitamin C 500 mg tablet 2020 [facility], [address], [place], [address], 15:19:24 cyanocobala min (vit B-12) 1,000 mcg tablet 2020 [facility], [address], [place], [address], 15:19:25 glipizide 10 mg tablet 2020 [facility], [address], [place], [address], 15:19:25 metformin 1,000 mg tablet 2020 [facility], [address], [place], [address], 15:19:27 pioglitazon e 45 mg tablet 2020 [facility], [address], [place], [address], 15:19:27 FreeStyle Lite Strips 2020 [facility], [address], [place], [address], 15:19:25 Alcohol Prep Pads 2020 [facility], [address], [place], [address], 15:19:24 atorvastati n 20 mg tablet 2020 [facility], [address], [place], [address], 15:19:25 imipramine 10 mg tablet 2020 [facility], [address], [place], [address], 15:19:24 omeprazole 20 mg capsule,del ayed release 2020 [facility], [address], [place], [address], 15:19:26 lisinopril 40 mg tablet 2020 [facility], [address], [place], [address], 15:19:27 Adult Low Dose Aspirin 81 mg tablet,abel yed release 2020 [facility], [address], [place], [address], 15:19:25 polyethylen e glycol 3350 17 gram/dose oral powder 2020 [facility], [address], [place], [address], 13:51:07 FreeStyle Lite Strips 2020 [facility], [address], [place], [address], 13:51:07 ketorolac 30 mg/mL (1 mL) injection solution 2020 [email or web address] Not available 14:39:40 DOK 100 mg capsule 2020 [facility], [address] [place], [address], 1 13:40:44 ferrous sulfate 325 mg (65 mg iron) tablet,abel yed release 2020 021 [facility], [address] [place], [address], 14:11:02 Vitamin C 500 mg tablet 2020 021 [email or web address] 6 [facility], [address] [place], [address], 13:17:44 FreeStyle Lite Strips 2020 021 [facility], [address] [place], [address], 14:11:04 Alcohol Prep Pads 2020 021 [email or web address] 6 [facility], [address] [place], [address], 1 13:13:19 Bactrim DS 800 mg-160 mg tablet [email or web address] [place] [address] Pharmacy, [address] [place], [address], 1 15:18:27 Ciprodex 0.3 %-0.1 % ear drops,suspe nsion [address] [place] [address] Pharmacy, [address] [place], [address], 1 15:04:45 pioglitazon e 45 mg tablet 2020 021 [email or web address] 6 [facility], [address] [place], [address], 1 09:55:51 atorvastati n 20 mg tablet 2020 021 [email or web address] 6 [facility], [address] [place], [address], 1 09:54:24 oxybutynin chloride ER 5 mg tablet,exte nded release 24 hr 2020 021 6 [facility], [address] [place], [address], 1 09:55:30 omeprazole 20 mg capsule,del ayed release 2020 021 [email or web address] 6 [facility], [address] [place], [address], 1 09:55:25 lisinopril 40 mg tablet 2020 021 [email or web address] 6 [facility], [address] [place], [address], 09:55:15 Patient Targets Encounter Date Encounter Id Patient Goals Patient Target Last Modified By Organization Details Last Modified Time see CM plan [email or web address] Not available 15:25:05 see CM plan Not available 13:19:11 See CM Plan [email or web address] Not available 14:09:48 See CM PLan [email or web address] Not available 08:46:20 See CM Plan [email or web address] Not available 07:55:52 Patient Instructions Encounter Date Encounter Id Patient Instructions Last Modified By Organization Details Last Modified Time 01/05/2021 [id number] Instructed on medications and follow up. Patient is aware of the clinic hours and walk in policy. Alerted patient of call service and how to use it. [email or web address] Not available 01/05/2021 15:25:11 Allergies reviewed. Treatment [...] of care today. Encounter time: 30 min. [email or web address] Not available 01/05/2021 15:25:25 01/12/2021 [id number] Instructed on medications and follow up. Patient is aware of the clinic hours and walk in policy. Alerted patient of call service and how to use it. [email or web address] Not available 01/12/2021 13:19:18 Allergies reviewed. Treatment [...] of care today. Encounter time: 30 min. [email or web address] Not available 01/12/2021 13:19:43 01/20/2021 [id number] Instructed on medications and follow up. Patient is aware of the clinic hours and walk in policy. Alerted patient of call service and how to use it. [email or web address] Not available 01/20/2021 14:09:53 Allergies reviewed. Treatment [...] of care today. Encounter time: 15 min. [email or web address] Not available 01/20/2021 14:10:14 04/10/2021 [id number] mini mental stat e exam [email or web address] Not available 04/10/2021 13:51:03 Instructed on medications and follow up. Patient is aware of the clinic hours and walk in policy. Alerted patient of call service and how to use it. [email or web address] Not available 04/13/2021 08:46:24 Allergies reviewed. Treatment [...] of care today. Encounter time: 15 min. [email or web address] Not available 04/13/2021 08:46:41 07/15/2021 [id number] eating healthy foods: care instructions Not available 07/15/2021 15:19:11 C? ? ?[place] comer alimentos saludables: instrucciones de cuidado - [eating healthy foods: care instructions] Not available 07/15/2021 15:19:11 fall risk assessment* [email or web address] Not available 10/02/2021 09:13:33 Instructed on medications and follow up. Patient is aware of the clinic hours and walk in policy. Alerted patient of call service and how to use it. [email or web address] Not available 07/16/2021 07:55:57 Allergies reviewed. Treatment [...] of care today. Encounter time: 15 min. [email or web address] Not available 07/16/2021 07:56:15 Reason for Referral Urologist Referral for Urina ry symptoms reports urinary symptoms- hx proatate ca. Needs to est. with urologist - rel[place] urinary symptoms hx prostate cancer [facility] Encounter Date: 01/05/2021 ENT Referral for Abrasion of skin of left ear fullness to left ear. Has insect removal 3 weeks ago- with abrasion . Txd with Ciprodex gtts x 1 wee Reports fullness to left ear. Has insect removal 3 weeks ago- with abrasion . Txd with Ciprodex gtts x 1 week [facility] Encounter Date: 01/12/2021 Results Created Date Observation Date Name Description Value Unit Range Abnormal Flag Note LastModifiedBy Organization Detail LastModifiedTime 01/06/20 21 01/05/2021 urina lysis , dipst ick leukocytes 2+ none negati ve abnormal Not Available [facility] [address], [place], [address], 01/05/2021 13:53:20 01/06/20 21 01/05/2021 urina lysis , dipst ick nitrite negati ve none negati ve normal Not Available [facility] [address], [place], [address], 01/05/2021 13:53:20 01/06/20 21 01/05/2021 urina lysis , dipst ick urobilinogen 0.2 eu/dL 0.2-1 normal Not Available [facility] [address], [place], [address], 01/05/2021 13:53:20 01/06/20 21 01/05/2021 urina lysis , dipst ick protein 1+ none negati ve abnormal Not Available [facility] [address], [place], [address], 01/05/2021 13:53:20 01/06/20 21 01/05/2021 urina lysis , dipst ick pH 7.0 none 4.6-8 normal Not Available [facility] [address], [place], [address], 01/05/2021 13:53:20 01/06/20 21 01/05/2021 urina lysis , dipst ick blood 1+ none negati ve abnormal Not Available [facility] [address], [place], [address], 01/05/2021 13:53:20 01/06/20 21 01/05/2021 urina lysis , dipst ick specific gravity 1.025 none 1.007- 1.03 normal Not Available [facility] [address], [place], [address], 01/05/2021 13:53:20 01/06/20 21 01/05/2021 urina lysis , dipst ick ketone negati ve none negati ve normal Not Available [facility] [address], [place], [address], 01/05/2021 13:53:20 01/06/20 21 01/05/2021 urina lysis , dipst ick bilirubin negati ve none negati ve normal Not Available [facility] [address], [place], [address], 01/05/2021 13:53:20 01/06/20 21 01/05/2021 urina lysis , dipst ick glucose negati ve none negati ve normal Not Available [facility] [address], [place], [address], 01/05/2021 13:53:20 01/06/20 21 01/05/2021 urina lysis , dipst ick appearance none clear Not Available [facility] [address], [place], [address], 01/05/2021 13:53:20 01/06/20 21 01/05/2021 urina lysis , dipst ick color yellow none colorl ess-am lloyd normal Not Available [facility] [address], [place], [address], 01/05/2021 13:53:20 01/06/20 21 01/05/2021 urina lysis , dipst ick clarity CLEAR clear normal Not Available [facility] [address], [place], [address], 01/05/2021 13:53:20 01/13/20 21 01/13/2021 CBC WITH DIFFE RENTI AL/PL ATELE T WBC 6.1 x10e3 /uL 3.4-10 .8 Not Available [facility] ([facility]) [address] [place], [address], 01/13/2021 13:37:04 01/13/20 21 01/13/2021 CBC WITH DIFFE RENTI AL/PL ATELE T RBC 4.13 x10e6 /uL 4.14-5 .80 below low normal Not Available [facility] ([facility]) [address] [place], [address], 01/13/2021 13:37:04 01/13/20 21 01/13/2021 CBC WITH DIFFE RENTI AL/PL ATELE T hemoglobin 11.4 g/dL 13.0-1 7.7 below low normal Not Available [facility] ([facility]) [address] [place], [address], 01/13/2021 13:37:04 01/13/20 21 01/13/2021 CBC WITH DIFFE RENTI AL/PL ATELE T hematocrit 34.9 % 37.5-5 1.0 below low normal Not Available [facility] ([facility]) [address] [place], [address], 01/13/2021 13:37:04 01/13/20 21 01/13/2021 CBC WITH DIFFE RENTI AL/PL ATELE T MCV 85 fL 79-97 Not Available [facility] ([facility]) [address] [facility], [place], [address], 01/13/2021 13:37:04 01/13/20 21 01/13/2021 CBC WITH DIFFE RENTI AL/PL ATELE T MCH 27.6 pg 26.6-3 3.0 Not Available [facility] ([facility]) [address] [facility], [place], [address], 01/13/2021 13:37:04 01/13/20 21 01/13/2021 CBC WITH DIFFE RENTI AL/PL ATELE T MCHC 32.7 g/dL 31.5-3 5.7 Not Available [facility] ([facility]) [address] [facility], [place], [address], 01/13/2021 13:37:04 01/13/20 21 01/13/2021 CBC WITH DIFFE RENTI AL/PL ATELE T RDW 14.4 % 11.6-1 5.4 Not Available [facility] ([facility]) [address] [place], [address], 01/13/2021 13:37:04 01/13/20 21 01/13/2021 CBC WITH DIFFE RENTI AL/PL ATELE T platelets 237 x10e3 /uL 150-45 0 Not Available [facility] ([facility]) [address] [facility], [place], [address], 01/13/2021 13:37:04 01/13/20 21 01/13/2021 CBC WITH DIFFE RENTI AL/PL ATELE T neutrophils 59 % not estab. Not Available [facility] ([facility]) [address] [place], [address], 01/13/2021 13:37:04 01/13/20 21 01/13/2021 CBC WITH DIFFE RENTI AL/PL ATELE T lymphs 30 % not estab. Not Available [facility] ([facility]) [address] [facility], [place], [address], 01/13/2021 13:37:04 01/13/20 21 01/13/2021 CBC WITH DIFFE RENTI AL/PL ATELE T monocytes 9 % not estab. Not Available [facility] ([facility]) [address] [facility], [place], [address], 01/13/2021 13:37:04 01/13/20 21 01/13/2021 CBC WITH DIFFE RENTI AL/PL ATELE T eos 1 % not estab. Not Available [facility] ([facility]) [address] [place], [address], 01/13/2021 13:37:04 01/13/20 21 01/13/2021 CBC WITH DIFFE RENTI AL/PL ATELE T basos 1 % not estab. Not Available [facility] ([facility]) [address] [facility], [place], [address], 01/13/2021 13:37:04 01/13/20 21 01/13/2021 CBC WITH DIFFE RENTI AL/PL ATELE T neutrophils (absolute) 3.6 x10e3 /uL 1.4-7. 0 Not Available [facility] ([facility]) [address] [place], [address], 01/13/2021 13:37:04 01/13/2001/13/2021 CBC WITH DIFFE RENTI AL/PL ATELE T lymphs (absolute) 1.8 x10e3 /uL 0.7-3. 1 Not Available [facility] ([facility]) [address] [place], [address], 01/13/2021 13:37:04 01/13/20 21 01/13/2021 CBC WITH DIFFE RENTI AL/PL ATELE T monocytes(ab solute) 0.6 x10e3 /uL 0.1-0. 9 Not Available [facility] ([facility]) [address] [facility], [address], 01/13/2021 13:37:04 01/13/20 21 01/13/2021 CBC WITH DIFFE RENTI AL/PL ATELE T eos (absolute) 0.1 x10e3 /uL 0.0-0. 4 Not Available [facility] ([facility]) [address] [place], [address], 01/13/2021 13:37:04 01/13/20 21 01/13/2021 CBC WITH DIFFE RENTI AL/PL ATELE T baso (absolute) 0.0 x10e3 /uL 0.0-0. 2 Not Available [facility] ([facility]) [address] [place], [address], 01/13/2021 13:37:04 01/13/20 21 01/13/2021 CBC WITH DIFFE RENTI AL/PL ATELE T immature granulocytes 0 % not estab. Not Available [facility] ([facility]) [address] [place], [address], 01/13/2021 13:37:04 01/13/20 21 01/13/2021 CBC WITH DIFFE RENTI AL/PL ATELE T immature grans (abs) 0.0 x10e3 /uL 0.0-0. 1 Not Available [facility] ([facility]) [address] [place], [address], 01/13/2021 13:37:04 01/13/20 21 01/13/2021 COMP. METAB OLIC PANEL (14) glucose 184 mg/dL 65-99 above high normal Not Available [facility] ([facility]) [address] [place], [address], 01/13/2021 13:37:05 01/13/20 21 01/13/2021 COMP. METAB OLIC PANEL (14) BUN 20 mg/dL 8-27 Not Available [facility] ([facility]) [address] [facility] [place], [address], 01/13/2021 13:37:05 01/13/20 21 01/13/2021 COMP. METAB OLIC PANEL (14) creatinine 1.25 mg/dL 0.76-1 .27 Not Available [facility] ([facility]) [address] [facility], [place], [address], 01/13/2021 13:37:05 01/13/20 21 01/13/2021 COMP. METAB OLIC PANEL (14) eGFR if nonafricn AM 53 mL/mi n/1.7 3 >59 below low normal Not Available [facility] ([facility]) [address] [facility], [place], [address], 01/13/2021 13:37:05 01/13/20 21 01/13/2021 COMP. METAB [...] . Not Available [facility] ([facility]) [address] [facility], [place], [address], 01/13/2021 13:37:05 01/13/20 21 01/13/2021 COMP. METAB OLIC PANEL (14) BUN/creatini ne ratio 16 10-24 Not Available [facility] ([facility]) [address] [facility], [place], [address], 01/13/2021 13:37:05 01/13/20 21 01/13/2021 COMP. METAB OLIC PANEL (14) sodium 139 mmol/ L 134-14 4 Not Available [facility] ([facility]) [address] [facility], [place], [address], 01/13/2021 13:37:05 01/13/20 21 01/13/2021 COMP. METAB OLIC PANEL (14) potassium 4.9 mmol/ L 3.5-5. 2 Not Available [facility] ([facility]) [address] [facility] [place], [address], 01/13/2021 13:37:05 01/13/20 21 01/13/2021 COMP. METAB OLIC PANEL (14) chloride 102 mmol/ L 96-106 Not Available [facility] ([facility]) [address] [facility], [place], [address], 01/13/2021 13:37:05 01/13/20 21 01/13/2021 COMP. METAB OLIC PANEL (14) carbon dioxide, total 24 mmol/ L 20- Not Available [facility] ([facility]) [address] [facility], [place], [address], 01/13/2021 13:37:05 01/13/20 21 01/13/2021 COMP. METAB OLIC PANEL (14) calcium 9.2 mg/dL 8.6-10 .2 Not Available [facility] ([facility]) [address] [facility] [place], [address], 01/13/2021 13:37:05 01/13/20 21 01/13/2021 COMP. METAB OLIC PANEL (14) protein, total 6.2 g/dL 6.0-8. 5 Not Available [facility] ([facility]) [address] [facility] [place], [address], 01/13/2021 13:37:05 01/13/20 21 01/13/2021 COMP. METAB OLIC PANEL (14) albumin 4.2 g/dL 3.6-4. 6 Not Available [facility] ([facility]) [address] [facility], [place], [address], 01/13/2021 13:37:05 01/13/20 21 01/13/2021 COMP. METAB OLIC PANEL (14) globulin, total 2.0 g/dL 1.5-4. 5 Not Available [facility] ([facility]) [address] [place], [address], 01/13/2021 13:37:05 01/13/20 21 01/13/2021 COMP. METAB OLIC PANEL (14) A/G ratio 2.1 1.2-2. 2 Not Available [facility] ([facility]) [address] [place], [address], 01/13/2021 13:37:05 01/13/20 21 01/13/2021 COMP. METAB OLIC PANEL (14) bilirubin, total 0.3 mg/dL 0.0-1. 2 Not Available [facility] ([facility]) [address] [place], [address], 01/13/2021 13:37:05 01/13/20 21 01/13/2021 COMP. METAB OLIC PANEL (14) alkaline phosphatase 97 IU/L 48-121 Not Available [facility] ([facility]) [address] [place], [address], 01/13/2021 13:37:05 01/13/20 21 01/13/2021 COMP. METAB OLIC PANEL (14) AST (SGOT) 17 IU/L 0-40 Not Available [facility] ([facility]) [address] [place], [address], 01/13/2021 13:37:05 01/13/20 21 01/13/2021 COMP. METAB OLIC PANEL (14) ALT (SGPT) 11 IU/L 0-44 Not Available [facility] ([facility]) [address] [place], [address], 01/13/2021 13:37:05 01/13/20 21 01/13/2021 LIPID PANEL cholesterol, total 143 mg/dL 100-19 9 Not Available [facility] ([facility]) [address] [facility], [place], [address], 01/13/2021 13:37:06 01/13/20 21 01/13/2021 LIPID PANEL triglyceride s 153 mg/dL 0-149 above high normal Not Available [facility] ([facility]) [address] [facility], [place], [address], 01/13/2021 13:37:06 01/13/20 21 01/13/2021 LIPID PANEL HDL cholesterol 40 mg/dL >39 Not Available [facility] ([facility]) [address] [facility], [place], [address], 01/13/2021 13:37:06 01/13/20 21 01/13/2021 LIPID PANEL VLDL cholesterol ishmael 27 mg/dL 5-40 Not Available [facility] ([facility]) [address] [place], [address], 01/13/2021 13:37:06 01/13/20 21 01/13/2021 LIPID PANEL LDL chol calc ([facility]) 76 mg/dL 0-99 Not Available [facility] ([facility]) [address] [place], [address], 01/13/2021 13:37:06 01/13/20 21 01/13/2021 ALBUM IN/CR EAT RATIO , RANDO M UR creatinine, urine 155.9 mg/dL not estab. Not Available [facility] ([facility]) [address] [place], [address], 01/13/2021 13:37:07 01/13/20 21 01/13/2021 ALBUM IN/CR EAT RATIO , RANDO M UR albumin, urine 25.7 ug/mL not estab. Not Available [facility] ([facility]) [address] [place], [address], 01/13/2021 13:37:07 01/13/20 21 01/13/2021 ALBUM IN/CR EAT RATIO , GURINDER García UR alb/creat ratio 16 mg/g_ creat 0-29 María l: 0 - 29 Moder ately incre ased: 30 - 300 Sever royal incre ased: >300 Not Available [facility] ([facility]) [address] [facility], [place], [address], 01/13/2021 13:37:07 01/13/20 21 01/13/2021 HEMOG LOBIN A1C hemoglobin A1C 6.8 % 4.8-5. 6 above high normal . Predi abete s: 5.7 - 6.4 Diabe chel: >6.4 Glyce ad contr ol for adult s with diabe chel: <7.0 Not Available [facility] ([facility]) [address] [facility], [place], [address], 01/13/2021 13:37:08 01/13/20 21 01/12/2021 urina lysis , dipst ick leukocytes trace none negati ve abnormal Not Available [facility] [address], [place], [address], 01/12/2021 10:14:17 01/13/20 21 01/12/2021 urina lysis , dipst ick nitrite negati ve none negati ve normal Not Available [facility] [address], [place], [address], 01/12/2021 10:14:17 01/13/20 21 01/12/2021 urina lysis , dipst ick urobilinogen 0.2 eu/dL 0.2-1 normal Not Available [facility] [address], [place], [address], 01/12/2021 10:14:17 01/13/20 21 01/12/2021 urina lysis , dipst ick protein negati ve none negati ve normal Not Available [facility] [address], [place], [address], 01/12/2021 10:14:17 01/13/20 21 01/12/2021 urina lysis , dipst ick pH 5.5 none 4.6-8 normal Not Available [facility] [address], [place], [address], 01/12/2021 10:14:17 01/13/20 21 01/12/2021 urina lysis , dipst ick blood negati ve none negati ve normal Not Available [facility] [address], [place], [address], 01/12/2021 10:14:17 01/13/20 21 01/12/2021 urina lysis , dipst ick specific gravity 1.025 none 1.007- 1.03 normal Not Available [facility] [address], [place], [address], 01/12/2021 10:14:17 01/13/20 21 01/12/2021 urina lysis , dipst ick ketone negati ve none negati ve normal Not Available [facility] [address], [place], [address], 01/12/2021 10:14:17 01/13/20 21 01/12/2021 urina lysis , dipst ick bilirubin negati ve none negati ve normal Not Available [facility] [address], [place], [address], 01/12/2021 10:14:17 01/13/20 21 01/12/2021 urina lysis , dipst ick glucose negati ve none negati ve normal Not Available [facility] [address], [place], [address], 01/12/2021 10:14:17 01/13/20 21 01/12/2021 urina lysis , dipst ick appearance none clear Not Available [facility] [address], [place], [address], 01/12/2021 10:14:17 01/13/20 21 01/12/2021 urina lysis , dipst ick color yellow none colorl ess-am lloyd normal Not Available [facility] [address], [place], [address], 01/12/2021 10:14:17 01/13/20 21 01/12/2021 urina lysis , dipst ick clarity CLEAR clear normal Not Available [facility] [address], [place], [address], 01/12/2021 10:14:17 07/15/20 21 07/16/2021 CBC WITH DIFFE RENTI AL/PL ATELE T WBC 5.4 x10e3 /uL 3.4-10 .8 Not Available [facility] ([facility]) [address] [place], [address], 07/16/2021 13:36:40 07/15/20 21 07/16/2021 CBC WITH DIFFE RENTI AL/PL ATELE T RBC 4.44 x10e6 /uL 4.14-5 .80 Not Available [facility] ([facility]) [address] [place], [address], 07/16/2021 13:36:40 07/15/20 21 07/16/2021 CBC WITH DIFFE RENTI AL/PL ATELE T hemoglobin 11.8 g/dL 13.0-1 7.7 below low normal Not Available [facility] ([facility]) [address] [place], [address], 07/16/2021 13:36:40 07/15/20 21 07/16/2021 CBC WITH DIFFE RENTI AL/PL ATELE T hematocrit 36.8 % 37.5-5 1.0 below low normal Not Available [facility] ([facility]) [address] [place], [address], 07/16/2021 13:36:40 07/15/20 21 07/16/2021 CBC WITH DIFFE RENTI AL/PL ATELE T MCV 83 fL 79-97 Not Available [facility] ([facility]) [address] [facility], [place], [address], 07/16/2021 13:36:40 07/15/20 21 07/16/2021 CBC WITH DIFFE RENTI AL/PL ATELE T MCH 26.6 pg 26.6-3 3.0 Not Available [facility] ([facility]) [address] [facility], [place], [address], 07/16/2021 13:36:40 07/15/20 21 07/16/2021 CBC WITH DIFFE RENTI AL/PL ATELE T MCHC 32.1 g/dL 31.5-3 5.7 Not Available [facility] ([facility]) [address] [facility], [place], [address], 07/16/2021 13:36:40 07/15/20 21 07/16/2021 CBC WITH DIFFE RENTI AL/PL ATELE T RDW 15.4 % 11.6-1 5.4 Not Available [facility] ([facility]) [address] [facility], [place], [address], 07/16/2021 13:36:40 07/15/20 21 07/16/2021 CBC WITH DIFFE RENTI AL/PL ATELE T platelets 224 x10e3 /uL 150-45 0 Not Available [facility] ([facility]) [address] [facility], [place], [address], 07/16/2021 13:36:40 07/15/20 21 07/16/2021 CBC WITH DIFFE RENTI AL/PL ATELE T neutrophils 60 % not estab. Not Available [facility] ([facility]) [address] [facility], [place], [address], 07/16/2021 13:36:40 07/15/20 21 07/16/2021 CBC WITH DIFFE RENTI AL/PL ATELE T lymphs 28 % not estab. Not Available [facility] ([facility]) [address] [facility], [place], [address], 07/16/2021 13:36:40 07/15/20 21 07/16/2021 CBC WITH DIFFE RENTI AL/PL ATELE T monocytes 11 % not estab. Not Available [facility] ([facility]) [address] [facility], [place], [address], 07/16/2021 13:36:40 07/15/20 21 07/16/2021 CBC WITH DIFFE RENTI AL/PL ATELE T eos 1 % not estab. Not Available [facility] ([facility]) [address] [facility], [place], [address], 07/16/2021 13:36:40 07/15/20 21 07/16/2021 CBC WITH DIFFE RENTI AL/PL ATELE T basos 0 % not estab. Not Available [facility] ([facility]) [address] [facility], [place], [address], 07/16/2021 13:36:40 07/15/20 21 07/16/2021 CBC WITH DIFFE RENTI AL/PL ATELE T neutrophils (absolute) 3.1 x10e3 /uL 1.4-7. 0 Not Available [facility] ([facility]) [address] [facility], [place], [address], 07/16/2021 13:36:40 07/15/20 21 07/16/2021 CBC WITH DIFFE RENTI AL/PL ATELE T lymphs (absolute) 1.5 x10e3 /uL 0.7-3. 1 Not Available [facility] ([facility]) [address] [facility], [place], [address], 07/16/2021 13:36:40 07/15/20 21 07/16/2021 CBC WITH DIFFE RENTI AL/PL ATELE T monocytes(ab solute) 0.6 x10e3 /uL 0.1-0. 9 Not Available [facility] ([facility]) [address] [facility], [place], [address], 07/16/2021 13:36:40 07/15/20 21 07/16/2021 CBC WITH DIFFE RENTI AL/PL ATELE T eos (absolute) 0.1 x10e3 /uL 0.0-0. 4 Not Available [facility] ([facility]) [address] [facility], [place], [address], 07/16/2021 13:36:40 07/15/20 21 07/16/2021 CBC WITH DIFFE RENTI AL/PL ATELE T baso (absolute) 0.0 x10e3 /uL 0.0-0. 2 Not Available [facility] ([facility]) [address] [facility], [place], [address], 07/16/2021 13:36:40 07/15/20 21 07/16/2021 CBC WITH DIFFE RENTI AL/PL ATELE T immature granulocytes 0 % not estab. Not Available [facility] ([facility]) [address] [place], [address], 07/16/2021 13:36:40 07/15/20 21 07/16/2021 CBC WITH DIFFE RENTI AL/PL ATELE T immature grans (abs) 0.0 x10e3 /uL 0.0-0. 1 Not Available [facility] ([facility]) [address] [place], [address], 07/16/2021 13:36:40 07/15/20 21 07/16/2021 COMP. METAB OLIC PANEL (14) glucose 133 mg/dL 65-99 above high normal Not Available [facility] ([facility]) [address] [place], [address], 07/16/2021 13:36:41 07/15/20 21 07/16/2021 COMP. METAB OLIC PANEL (14) BUN 15 mg/dL 8-27 Not Available [facility] ([facility]) [address] [facility], [place], [address], 07/16/2021 13:36:41 07/15/20 21 07/16/2021 COMP. METAB OLIC PANEL (14) creatinine 1.08 mg/dL 0.76-1 .27 Not Available [facility] ([facility]) [address] [facility], [place], [address], 07/16/2021 13:36:41 07/15/20 21 07/16/2021 COMP. METAB OLIC PANEL (14) eGFR if nonafricn AM 63 mL/mi n/1.7 3 >59 Not Available [facility] ([facility]) [address] [facility], [place], [address], 07/16/2021 13:36:41 07/15/20 21 07/16/2021 COMP. METAB [...] ble. Not Available [facility] ([facility]) [address] [facility], [place], [address], 07/16/2021 13:36:41 07/15/20 21 07/16/2021 COMP. METAB OLIC PANEL (14) BUN/creatini ne ratio 14 10-24 Not Available [facility] ([facility]) [address] [facility], [place], [address], 07/16/2021 13:36:41 07/15/20 21 07/16/2021 COMP. METAB OLIC PANEL (14) sodium 145 mmol/ L 134-14 4 above high normal Not Available [facility] ([facility]) [address] [facility] [place], [address], 07/16/2021 13:36:41 07/15/20 21 07/16/2021 COMP. METAB OLIC PANEL (14) potassium 4.2 mmol/ L 3.5-5. 2 Not Available [facility] ([facility]) [address] [facility] [place], [address], 07/16/2021 13:36:41 07/15/20 21 07/16/2021 COMP. METAB OLIC PANEL (14) chloride 104 mmol/ L 96-106 Not Available [facility] ([facility]) [address] [facility], [place], [address], 07/16/2021 13:36:41 07/15/20 21 07/16/2021 COMP. METAB OLIC PANEL (14) carbon dioxide, total 24 mmol/ L - Not Available [facility] ([facility]) [address] [place], [address], 07/16/2021 13:36:41 07/15/20 21 07/16/2021 COMP. METAB OLIC PANEL (14) calcium 8.8 mg/dL 8.6-10 .2 Not Available [facility] ([facility]) [address] [place], [address], 07/16/2021 13:36:41 07/15/20 21 07/16/2021 COMP. METAB OLIC PANEL (14) protein, total 6.4 g/dL 6.0-8. 5 Not Available [facility] ([facility]) [address] [place], [address], 07/16/2021 13:36:41 07/15/20 21 07/16/2021 COMP. METAB OLIC PANEL (14) albumin 4.2 g/dL 3.6-4. 6 Not Available [facility] ([facility]) [address] [place], [address], 07/16/2021 13:36:41 07/15/20 21 07/16/2021 COMP. METAB OLIC PANEL (14) globulin, total 2.2 g/dL 1.5-4. 5 Not Available [facility] ([facility]) [address] [place], [address], 07/16/2021 13:36:41 07/15/20 21 07/16/2021 COMP. METAB OLIC PANEL (14) A/G ratio 1.9 1.2-2. 2 Not Available [facility] ([facility]) [address] [place], [address], 07/16/2021 13:36:41 07/15/20 21 07/16/2021 COMP. METAB OLIC PANEL (14) bilirubin, total 0.5 mg/dL 0.0-1. 2 Not Available [facility] ([facility]) [address] [place], [address], 07/16/2021 13:36:41 07/15/20 21 07/16/2021 COMP. METAB OLIC PANEL (14) alkaline phosphatase 100 IU/L 44-121 Ple ase note refer ence inter loli chinchilla e Not Available [facility] ([facility]) [address] [facility] [place], [address], 07/16/2021 13:36:41 07/15/20 21 07/16/2021 COMP. METAB OLIC PANEL (14) AST (SGOT) 15 IU/L 0-40 Not Available [facility] ([facility] [address] [facility] [place], [address], 07/16/2021 13:36:41 07/15/20 21 07/16/2021 COMP. METAB OLIC PANEL (14) ALT (SGPT) 12 IU/L 0-44 Not Available [facility] ([facility]) [address] [place], [address], 07/16/2021 13:36:41 07/15/20 21 07/16/2021 LIPID PANEL cholesterol, total 198 mg/dL 100-19 9 Not Available [facility] ([facility]) [address] [place], [address], 07/16/2021 13:36:42 07/15/20 21 07/16/2021 LIPID PANEL triglyceride s 219 mg/dL 0-149 above high normal Not Available [facility] ([facility]) [address] [place], [address], 07/16/2021 13:36:42 07/15/20 21 07/16/2021 LIPID PANEL HDL cholesterol 50 mg/dL >39 Not Available [facility] ([facility]) [address] [place], [address], 07/16/2021 13:36:42 07/15/20 21 07/16/2021 LIPID PANEL VLDL cholesterol ishmael 38 mg/dL 5-40 Not Available [facility] ([facility]) [address] [place], [address], 07/16/2021 13:36:42 07/15/20 21 07/16/2021 LIPID PANEL LDL chol calc ([facility]) 110 mg/dL 0-99 above high normal Not Available [facility] ([facility]) [address] [place], [address], 07/16/2021 13:36:42 07/15/20 21 07/16/2021 IRON AND TIBC iron bind.cap.(TI BC) 256 ug/dL 250-45 0 Not Available [facility] ([facility]) [address] [place], [address], 07/16/2021 13:36:42 07/15/20 21 07/16/2021 IRON AND TIBC UIBC 204 ug/dL 111-34 3 Not Available [facility] ([facility]) [address] [place], [address], 07/16/2021 13:36:42 07/15/20 21 07/16/2021 IRON AND TIBC iron 52 ug/dL 38-169 Not Available [facility] ([facility]) [address] [place], [address], 07/16/2021 13:36:42 07/15/20 21 07/16/2021 IRON AND TIBC iron saturation 20 % 15-55 Not Available [facility] ([facility]) [address] [place], [address], 07/16/2021 13:36:42 07/15/20 21 07/16/2021 ALBUM IN/CR EAT RATIO , RANDO M UR creatinine, urine 158.2 mg/dL not estab. Not Available [facility] ([facility]) [address] [place], [address], 07/16/2021 13:36:43 07/15/20 21 07/16/2021 ALBUM IN/CR EAT RATIO , RANDO M UR albumin, urine 36.1 ug/mL not estab. Not Available [facility] ([facility]) [address] [place], [address], 07/16/2021 13:36:43 07/15/20 21 07/16/2021 ALBUM IN/CR EAT RATIO , RANDO M UR alb/creat ratio 23 mg/g_ creat 0-29 María l: 0 - 29 Moder ately incre ased: 30 - 300 Sever royal incre ased: >300 Not Available [facility] ([facility]) [address] [place], [address], 07/16/2021 13:36:43 07/15/20 21 07/16/2021 HEMOG LOBIN A1C hemoglobin A1C 6.9 % 4.8-5. 6 above high normal . Predi abete s: 5.7 - 6.4 Diabe chel: >6.4 Glyce ad contr ol for adult s with diabe chel: <7.0 Not Available [facility] ([facility]) [address] [facility], [place], [address], 07/16/2021 13:36:43 Result Notes None recorded. Problems Name Problem SNOMED Code Status Onset Date Resolution Date Notes Provider Name and Address Organization Details Recorded Time Essential hypertensi on 61726284 Active 2020 [facility] 13:49:58 Diabetes mellitus 06822841 Active 2020 type2 Carmen Rick NP [address] [place], [place], [address] [place] [address] , [facility] 13:05:29 Hyperlipid emia 97223264 Active 2020 [facility] 13:50:22 Primary malignant neoplasm of prostate 07435649 Active 2020 Lijeff [facility] 13:50:55 Polyp of colon 28882931 Active 2020 Carmen Rick NP [address] [place], [address] [place] [address] , [facility] 13:04:06 Anemia of chronic disease 607182484 Active 2020 Carmen Rick NP [address] [place], [address] [place] [address] , [facility] 13:04:48 Neurogenic urinary bladder 572952221 Active 2020 Carmen Rick NP [address] [place], [address] [place] [address] , [facility] 13:05:03 Gastroesop hageal reflux disease 351371574 Active 2020 Carmen Rick NP [address] [place], [address] [place] [address] , [facility], [facility] 1 13:05:34 History of Helicobact er pylori infection 2677328538502 9108 Active 2020 Carmen Rick NP [address] [place], [address] [place] [address] , [facility], [facility] 1 13:06:09 Sensorineu ral hearing loss of bilateral ears 394706590 Active 2020 Carmen Rick NP [address] [place], [address] [place] [address] , [facility], [facility] 1 13:06:24 Pain of left shoulder joint 7001603224706 9109 Active 2020 Carmen Rick NP [address] [place] [address], [address] [place] [address] , [facility], [facility] 1 13:14:51 Bilateral knee pain Active 2020 Carmen Rick NP [address] [place] [address], [address] [place] [address] , [facility], [facility] 1 08:45:58 Memory impairment 585562172 Active 2020 Carmen Rick NP [address] [place] [address], [address] [place] [address] , [facility], [facility] 08:46:00 Hematochez ia 563704461 Active 2020 Carmen Rick NP [address] [place] [address], [address] [place] [address] , [facility], [facility]. 1 08:46:01 Chronic constipati on 055987810 Active 2020 Carmen Rick NP [address] [place] [address], [address] [place] [address] , [facility], [facility]. 1 08:46:06 Hemoglobin below reference range 123968153 Active 2020 Carmen Rick NP [address] [place] [address], [address] [place] [address] , [facility] 08:46:07 Type 2 diabetes mellitus 18468968 Active 2020 Carmen Rick NP [address] [place] [address], [address] [place] [address] 07:54:27 Urinary symptoms 456396680 Active 2020 Carmen Rick NP [address] [place] [address], [address] [place] [address] , [facility] 07:54:29 Obesity 592897519 Active 2020 Carmen Rick NP [address] [place] [address], [address] [place] [address] 07:54:31 Dyslipidem ia 146340522 Active 2020 Carmen Rick NP [address] [place] [address], [address] [place] [address] 07:54:38 Gastroesop hageal reflux disease without esophagiti s 792917956 Active 2020 Carmen Rick NP [address] [place] [address], [address] [place] [address] 07:54:55 Tobacco dependence in remission 573620672 Active 2020 Carmen Rick NP [address] [place] [address], [address] [place] [address] 07:54:57 Vaccine declined by patient 465518461042 Active 2020 Carmen Rick NP [address] [place], [address] [place] [address] 07:55:21 Advance directive discussed with patient 351419550 Active 2020 Carmen Rick NP [address] [place], [address] [place] [address] , [facility] 07:55:23 At increased risk for falls 850925680 Active 2020 Carmen Rick NP [address] [place], [address] [place] [address] , [facility] 07:55:24 Secondary immune deficiency disorder 64191769 Active 2020 Carmen Rick NP [address] [place], [address] [place] [address] 07:56:40 Problem Notes None recorded. Procedures Surgical History Date Name Laterality Status Provider Name and Address Organization Details Recorded Time 8 prostatectomy completed [facility] 01/05/2021 13:52:29 Imaging Results None recorded. Procedure Notes None recorded. Medical Equipment None Reported. Allergies Allergen ID Allergen Name Allergen Category Reaction Reaction Severity Criticality Documentation Date Start Date Code Code System Note Provider Name and Address Organization Details Recorded Time 10243 oxycodone medicatio n Not available Not available Not available 01/05/2021 7804 RxNorm [facility] 13:46:10 Medications Name Sig Start Date Stop [...] Updated DateTime 1 156.21 cm 32 kg/m2 93344.8 9 g 18 /min 98.3 [degF] 99 % 99 % 77 /min 122 mm[Hg] 78 mm[Hg] Kerwin Anaya [place] - [facility]. 1 13:12:46 Date Recorded Body height Body mass index (BMI) Body weight Heart rate Respiratory rate Body temperature Oxygen saturation Oxygen saturation in Arterial blood by Pulse oximetry Systolic blood pressure Diastolic blood pressure Provider Name and Address Organization Details Last Updated DateTime 1 156.21 cm 32 kg/m2 84217.5 9 g 96 /min 18 /min 98.1 [degF] 97 % 97 % 124 mm[Hg] 81 mm[Hg] Mylene Snell [facility] 1 14:57:50 Date Recorded Body weight Body mass index (BMI) Body height Body temperature Oxygen saturation Oxygen saturation in Arterial blood by Pulse oximetry Heart rate Respiratory rate Systolic blood pressure Diastolic blood pressure Provider Name and Address Organization Details Last Updated DateTime 1 80157.6 4 g 32.3 kg/m2 156.21 cm 97.6 [degF] 98 % 98 % 97 /min 18 /min 129 mm[Hg] 68 mm[Hg] Li Collins [facility] 1 13:45:40 Date Recorded Body height Body mass index (BMI) Body weight Heart rate Respiratory rate Body temperature Oxygen saturation Oxygen saturation in Arterial blood by Pulse oximetry Systolic blood pressure Diastolic blood pressure Provider Name and Address Organization Details Last Updated DateTime 1 156.21 cm 31.8 kg/m2 32974.3 g 98 /min 17 /min 98 [degF] 97 % 97 % 126 mm[Hg] 76 mm[Hg] Kerwin Anaya [facility] 1 09:52:13 Date Recorded Body height Body mass index (BMI) Body weight Provider Name and Address Organization Details Last Updated DateTime 01/20/2021 156.21 cm 31.6 kg/m2 28200.7 g Liyah Lockhart [facility] 01/20/2021 13:41:21 Social History Question Answer Notes LastModified by Organizat ion Details LastModified Time Tobacco Smoking Status Never Smoker [facility] 01/05/2021 13:51:55 What Is Your Occupation? N/A [email or web address] Information not available 01/05/2021 Medical Terms Are Complicated, And Many People Find The Words Difficult To Understand. Do You Ever Get Help From Others In Filling Out Forms, Reading Prescription Labels, Insurance Forms, Or Health Education Sheets? Often Information no t available 01/12/2021 Are You Worried About Losing Your Housing? 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 No [email or web address] Information n ot available 01/12/2021 In The Past Year Have You Or Any Of Your Family Members Been Unable To Get CLOTHING When It Was Really Needed? No [email or web address] Information n ot available 01/12/2021 In The Past Year Have You Or Any Of Your Family Members Been Unable To Get FOOD When It Was Really Needed? No [email or web address] Information not available 01/12/2021 In The Past Year Have You Or Any Of Your Family Members Been Unable To Get MEDICINE Or HEALTH CARE When It Was Really Needed? No Information not available 01/12/2021 In The Past Year Have You Or Any Of Your Family Members Been Unable To Get PHONE When It Was Really Needed? No [email or web address] Information not available 01/12/2021 In The Past Year Have You Or Any Of Your Family Members Been Unable To Get UTILITIES When It Was Really Needed? No [email or web address] Information n ot available 01/12/2021 Has Lack Of Transportation Kept You From Medical Appointments, Meetings, Work, Or From Getting Things Needed For Daily Living? No [email or web address] Information not available 01/12/2021 In The Past Year Have You Or Any Of Your Family Members Been Unable To Get OTHER NECESSITIES When It Was Really Needed? No [email or web address] Information not available 01/12/2021 How Often Do You See Or Talk To People That You Care About And Feel Close To? 3 To 5 Times A Week [email or web address] Information not available 01/12/2021 How Stressed Are You? Somewhat Information not available 01/12/2021 In The Past Year, Have You Spent More Than 2 Nights In A Row In A Prison, Retirement, Penitentiary Center, Or Juvenile Correctional Facility? No [email or web address] Information not available 01/12/2021 Are You A Refugee? No [email or web address] Inform ation not available 01/12/2021 Do You Feel Physically And Emotionally Safe Where You Currently Live? Yes [email or web address] Information not available 01/12/2021 What Was The Date Of Your Most Recent Tobacco Screening? 07/15/2021 [email or web address] Information n ot available 07/15/2021 Do You Or Have You Ever Used Any Other Forms Of Tobacco Or Nicotine? No [email or web address] Information not available 01/05/2021 Sex: Male Functional Status None recorded. Mental Status None recorded. Family History Relationship Description Onset Age of this Age Resolved Age Notes LastModified by Organization Details LastModified Time Mother Family history of stroke [email or web address] Not available 01/05 13:51:17 Father History of emphysema [email or web address] Not available 01/05 13:51:37 Father Family history of stroke [id number] Not available 01/05 13:51:40 Notes:. Medical History Condition Response Diabetes Y Hypertension Y High Cholesterol Y Immunizations Vaccine Type Date Status Note Provider Nam e and Address Organization Details Recorded Time COVID-19, mRNA, LNP-S, PF, 100 mcg/0.5mL dose or 50 mcg/0.25mL dose 09/25/2020 completed Kerwin Anaya [facility] 04/10/2021 13:13:04 Influenza, high-dose, quadrivalent, PF 03/31/2021 completed Mylene Snell [facility] 07/15/2021 14:58:12 Past Encounters Encounter ID Performer Location Encounter Start Date Encounter Closed Date Diagnosis/Indication Diagnosis SNOMED-CT Code Diagnosis ICD10 Code Diagnosis Note [id number] Carmen Rick NP [facility] [address] [place] [address] 01/05/2021 13:30:14 01/05/2021 14:52:38 Obesity 288454327 E66.9 Diet education 40878583 Z71.3 Urinary symptoms 4556431 08 R39.9 burning with urgency.Hx prostatect jose luis Abrasion o f skin of left ear 2779029234 1831054 S00.412A Avoid Q- Tips.Hx Insect Left ear s/p removal 3 weeks ago. Type 2 dom betes mellitus 56959671 E11.9 Reports glucose under control Dyslipidemia 986173922 E 78.5 Pt to bring in records from prev. PCP Essential hypertension 21515907 I10 BP: 129/68 Dribbling of urine 25709 000 N39.43 REfill requested. Urology referral placed Gastroesop hageal reflux disease without esophagitis 986431065 K21.9 STable Acute urin willis tract infection 241280842 N39.0 UA with 2+ LE's, protein and 1+ blood.Rx Bactrim. [id number] Carmen Rick NP [facility] [address] [place] [address] 01/12/2021 09:41:48 01/12/2021 10:40:58 Obesity 144465964 E66.9 Diet education 43268361 Z71.3 Urinary symptoms 4768297 08 R39.9 burning with urgency.Hx prostatect omyUrology referral [id number] Completed course of abx after (+) UA.UA recheck today Abrasion o f skin of left ear 1681651185 1438404 S00.412A Avoid Q- Tips.Hx Insect Left ear s/p removal 3 weeks ago. 01/12: Left Ear improved - reports fullness . Cerumen has softened, still with dried blood to left ear canal partially obscuring the TM. Type 2 dom betes mellitus 52521932 E11.9 Reports glucose under controlPer medical records 10/15/20: HgbA1c 7.7. Onmetformi n 100mg po BID, Actos 45mg daily and Glipizide 10mg po BID. Dyslipidemia 899014980 E 78.5 Lipitor 20mg at HS Essential hypertension 82305581 I10 BP 126/76 Follow Low salt diet.On Lisinopril 40mg po daily , was on Amlodipine 10mg po daily?Dorothea y ASA 81mg Dribbling of urine 52456 000 N39.43 REfill requested. Urology referral placed Gastroesop hageal reflux disease without esophagitis 023595379 K21.9 STable Acute urin willis tract infection 213936321 N39.0 UA with 2+ LE's, protein and 1+ blood.Rx Bactrim. 01/12/21 improved recheck UA today Tobacco de pendence in remission 278247128 F17.201 Primary ma lignant neoplasm of prostate 79332029 C61 Dx in 1992, s/p prostatect jose luis in [place] 1992. Urologist Dr Jayna maldonado , last seen Apr 2020. Hx hypogonadi sm, neurogenic bladder and recurrent UTI.Last PSA 0.11 05/01/19 Neurogenic urinary bladder 017205473 N31.9 Last seen by urol 05/06. Impramine 10mg po BID and Oxybutnin 5mg at HS Pain of le ft shoulder joint 6815648165 0731415 M25.512 mild joint arthritis per imaging 09/2017He declined PT previously . [id number] Carmen Rick NP [facility] [address] [place] [address] 01/20/2021 13:34:36 01/20/2021 15:33:54 Obesity 809603039 E66.9 Diet education 19906585 Z71.3 Urinary symptoms 0146705 08 R39.9 burning with urgency.Hx prostatect omyUrology referral [id number] Completed course of abx after (+) UA.UA recheck today 01/20/21 UA with trace LE's. No blood. Referral approved to see Dr. Vazquez- pt to schedule appt. Abrasion o f skin of left ear 6305607770 1902283 S00.412A Avoid Q- Tips.Hx Insect Left ear s/p removal 3 weeks ago. 01/12: Left Ear improved - reports fullness . Cerumen has softened, still with dried blood to left ear canal partially obscuring the TM. 01/20/21 Referral to ENT/ [facility] approved. Type 2 dom betes mellitus 39230533 E11.9 Reports glucose under controlPer medical records 10/15/20: HgbA1c 7.7. On metformin 100mg po BID, Actos 45mg daily and Glipizide 10mg po BID. 01/20/21 HgbA1c: 6.8. Cont with current med regimen. On metformin 100mg po BID, Actos 45mg daily and Glipizide 10mg po BID. Dyslipidemia 081241523 E 78.5 Lipitor 20mg at HS01/20/21 Tot chol. 143, Trig 153, LDL 76Cont with Lipitor 20mg at HS Essential hypertension 82438637 I10 BP 126/76 Follow Low salt diet.On Lisinopril 40mg po daily , was on Amlodipine 10mg po daily?Dorothea y ASA 81mg 01/20/21 Cont with current med regimen Dribbling of urine 84301 000 N39.43 REfill requested. Urology referral [id number] 01/05: To see Dr. Vazquez Gastroesop hageal reflux disease without esophagitis 165591155 K21.9 STable Acute urin willis tract infection 251195239 N39.0 UA with 2+ LE's, protein and 1+ blood.Rx Bactrim. 01/12/21 improved recheck UA today 01/20/21: UA with trace LE's, no Blood. Tobacco de pendence in remission 134754688 F17.201 Primary ma lignant neoplasm of prostate 44081635 C61 Dx in 1992, s/p prostatect jose luis in [place] 1992. Urologist Dr Jayna maldonado , last seen Apr 2020. Hx hypogonadi sm, neurogenic bladder and recurrent UTI.Last PSA 0.11 05/01/19 Neurogenic urinary bladder 080934509 N31.9 Last seen by urol 05/06. Impramine 10mg po BID and Oxybutnin 5mg at HS Pain of le ft shoulder joint 5638421264 1036228 M25.512 mild joint arthritis per imaging 09/2017He declined PT previously . Hemoglobin below reference range 636654275 D64.9 Hgb 11.4, HCT 34.9. Normal MCV and MCH. Hx anemia of chronic diseasePt case entered for Fe Panel, Ferritin , & FIT Chronic constipation 236 384517 K59.09 Test resul t to patient by telephone 829712890 Z71.2 Labs reviewed [id number] Carmen Rick NP [facility] [address] [place] [address] 04/10/2021 12:47:04 04/10/2021 13:55:11 Obesity 701792211 E66.9 Pt educated on importance of lifestyle modificati on which should include but not limited to an exercise regime and diet modificati on as discussed on visit. Diet education 01481081 Z71.3 Urinary symptoms 5882162 08 R39.9 burning with urgency.Hx prostatect omyUrology referral [id number] Completed course of abx after (+) UA.UA recheck today 01/20/21 UA with trace LE's. No blood. Referral approved to see Dr. Vazquez- pt to schedule appt. 04/10/21 Prostate f/u, pt reports he has frequency and blood coming from his rectum.-He needs GI/PCP for his constipati on and blood per rectum.[place] regimen discussed as it can also be worsen his LUTS.Sampl e of myrbetriq given for his LUTSF/U: in 4 weeksPt reports improvemen t of LUTS Abrasion o f skin of left ear 4025238774 2203679 S00.412A Avoid Q- Tips.Hx Insect Left ear s/p removal 3 weeks ago. 01/12: Left Ear improved - reports fullness . Cerumen has softened, still with dried blood to left ear canal partially obscuring the TM. 01/20/21 Referral to ENT/ [facility] approved. 04/10/21 ENT f/u completed. FB removed. Type 2 dom betes mellitus 85720681 E11.9 Reports glucose under controlPer medical records 10/15/20: HgbA1c 7.7. On metformin 100mg po BID, Actos 45mg daily and Glipizide 10mg po BID. 01/20/21 HgbA1c: 6.8. Cont with current med regimen. On metformin 100mg po BID, Actos 45mg daily and Glipizide 10mg po BID. 04/10/21 c/w metformin 100mg po BID, Actos 45mg daily and Glipizide 10mg po BID. Dyslipidemia 362774451 E 78.5 Lipitor 20mg at HS01/20/21 Tot chol. 143, Trig 153, LDL 76Cont with Lipitor 20mg at HS Essential hypertension 15131637 I10 BP 126/76 Follow Low salt diet.On Lisinopril 40mg po daily , was on Amlodipine 10mg po daily?Dorothea y ASA 81mg 01/20/21 Cont with current med regimenBP qvdhub64/11/05 stop amlodipine 10mg po daily ? 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 Urologist Dr Jayna maldonado , last seen Apr 2020. Hx hypogonadi sm, neurogenic bladder and recurrent UTI.Last PSA 0.11 05/01/1909 / Urology appt completed for LUTS Neurogenic urinary bladder 786787530 N31.9 Last seen by urol 05/06. Impramine 10mg po BID and Oxybutnin 5mg at HS Pain of le ft shoulder joint 2548980375 4133263 M25.512 mild joint arthritis per imaging 09/2017He declined PT previously . Hemoglobin below reference range 827799236 D64.9 Hgb 11.4, HCT 34.9. Normal MCV and MCH. Hx anemia of chronic diseasePt case entered for Fe Panel, Ferritin , & FIT Chronic constipation 236 588443 K59.09 No improvemen t with Colace Hematochezia 573226482 K 92.1 CBC 01/12/21 with Hgb 11.4, Hct 34.9Pt reporting rectal bleeding to urologistG I referral provided to pt in person Memory impairment 694715 006 R41.3 MMSE 24Dtr reported concern with memory Bilateral knee pain 1187 782514 2012951 M25.561 M25.562 Pt refuses Ortho referral or steroids [id number] Carmen Rick NP [facility] [address] [place] [address] 07/15/2021 14:34:11 07/15/2021 16:00:16 Obesity 888494045 E66.9 Pt educated on importance of lifestyle modificati on which should include but not limited to an exercise regime and diet modificati on as discussed on visit. Diet education 29223763 Z71.3 Urinary symptoms 0845921 08 R39.9 burning with urgency.Hx prostatect omyUrology referral [id number] Completed course of abx after (+) UA.UA recheck today 01/20/21 UA with trace LE's. No blood. Referral approved to see Dr. Vazquez- pt to schedule appt. 04/10/21 Prostate f/u, pt reports he has frequency and blood coming from his rectum.-He needs GI/PCP for his constipati on and blood per rectum.[place] regimen discussed as it can also be worsen his LUTS.Sampl e of myrbetriq given for his LUTSF/U: in 4 weeksPt reports improvemen t of LUTS Type 2 dom betes mellitus 21986837 E11.9 Reports glucose under controlPer medical records [...] 07/15/21 Pt reports home glucose good Dyslipidemia 848764921 E 78.5 Lipitor 20mg at HS01/20/21 Tot chol. 143, Trig 153, LDL 76Cont with Lipitor 20mg at HS Essential hypertension 19089934 I10 BP 126/76 Follow Low salt diet.On Lisinopril 40mg po daily , was on Amlodipine 10mg po daily?Dorothea y ASA 81mg 01/20/21 Cont with current med regimenBP gdpjos32/2 11/05 stop amlodipine 10mg po daily ? pedal edema x 1 weekand Follow low salt diet Has been taking amlodipine 10mg, 1/2 tablet daily- less pedal edema . BP 124/81 Gastroesop hageal reflux disease without esophagitis 053078189 K21.9 STable Tobacco de pendence in remission 023504959 F17.201 Primary ma lignant neoplasm of prostate 88965200 C61 Dx in 1992, s/p prostatect j[place] l[place] in [place] 1992. Urologist Dr Dorantes i , last seen Apr 2020. Hx hypogonadi sm, neurogenic bladder and recurrent UTI.Last PSA 0.11 05/01/1909 / Urology appt completed for LUTS Neurogenic urinary bladder 522061388 N31.9 Last seen by urol 05/06. Impramine 10mg po BID and Oxybutnin 5mg at HS Pain of le ft shoulder joint 7570615964 6845123 M25.512 mild joint arthritis per imaging 09/2017He declined PT previously . Hemoglobin below reference range 389577368 D64.9 Hgb 11.4, HCT 34.9. Normal MCV and MCH. Hx anemia of chronic diseasePt case entered for Fe Panel, Ferritin , & FIT Chronic constipation 236 705324 K59.09 No improvemen t with Colace Hematochezia 476252842 K 92.1 CBC 01/12/21 with Hgb 11.4, Hct 34.9Pt reporting rectal bleeding to urologistG I referral provided to pt in person 07/15/21 Pt has not made appt with GI - referral provided to pt in person Memory impairment 246239 006 R41.3 MMSE 24Dtr reported concern with memory Bilateral knee pain 1187 011404 2276524 M25.561 M25.562 Pt refuses Ortho referral or steroids Vaccine de clined by patient 0207528847 02 Z28.20 Pt declines shingles, Tdap vaccine Advance di rective discussed with patient 710508461 Z71.89 PT reports he has living will At [facility], [facility] risk for falls 334797806 Z91.81 Secondary immune deficiency disorder 40021533 D84.9 T2DM Health Concerns Section Related Observation LastModified by Organization Detai ls LastModified Time None Recorded Concern Status LastModified by Organization Details LastModified Time None Recorded Advance Directives Directive None Recorded Payers Encounter Date Sequence Insurance Name Policy Number Policy [place] Covered Member ID [place] Member ID Guarantor Name 01/05/2021 1 [facility] (MEDICAID REPLACEMENT - HMO) Toni Cardenas [id number] Toni Cardenas Meehan 01/05/2021 1 [place] T[place] Cardenas [id number] Toni Cardenas Meehan 01/12/2021 1 [facility] (MEDICAID REPLACEMENT - HMO) Toni Cardenas [id number] Toni Cardenas Meehan 01/12/2021 1 [place] Toni Cardenas [id number] Otni Cardenas Meehan 01/20/2021 1 [facility] (MEDICAID REPLACEMENT - HMO) Toni Cardenas [id number] Toni Cardenas Meehan 01/20/2021 1 [place] Toni Cardenas [id number] Toni Cardenas Meehan 04/10/2021 1 [employer] (MEDICAID REPLACEMENT - HMO) Toni Cardenas [id number] Tonirafia Cardenas Meehan 04/10/2021 1 [place] Tonirafia Thomasarria [id number] Toni Theresa Meehan 07/15/2021 1 [facility] (MEDICAID REPLACEMENT - HMO) Toni Cardenas [id number] Toni Cardensa Meehan 07/15/2021 3 [place] Tonirafia Salazaria [id number] Toni Cardenas Meehan Notes Date Note Type Note Provider Name and Address Organization Details Recorded Time 01/05/2021 text/html 85-year-old male New patient. Patient is here to establish care. Patient reports recent relocation from [place]. He is accompanied by his daughter lela [...] Exam: Carmen Rick NP [address] [place], [address] 01/05/2021 15:27:02 01/12/2021 text/html 85-year-old male New patient. Patient is here to establish care. Patient reports recent relocation from [place]. He is accompanied by his daughter lela [...] retinopathy Carmen Rick NP [address] [place], [address], [facility], [facility] 01/12/2021 13:20:14 01/20/2021 text/html 85-year-old male New patient. Patient is here to establish care. Patient reports recent relocation from [place]. He is accompanied by his daughter lela at today's visit. Patient is reporting left ear pain for the past 3 weeks. Patient shares a had insect removed from ear at [facility]. Continues to have pain [...] retinopathy Carmen Rick NP [address] [place], [address], [facility], [facility]. 01/20/2021 14:35:26 04/10/2021 text/html 85-year-old male New patient. Patient is here to establish care. Patient reports recent relocation from [place]. He is accompanied by his daughter lela at today's visit. Patient is reporting left ear pain for the past 3 weeks. Patient shares a had insect removed from ear at [facility]. Continues to have pain [...] retinopathy Carmen Rick NP [address] [place], [address], [facility] - [facility]. 04/13/2021 08:48:16 07/15/2021 text/html 85-year-old male New patient. Patient is here to establish care. Patient reports recent relocation from [place]. He is accompanied by his daughter lela [...] shares that he may be returning to [facility]. colonoscopy: GI referral initiatedAnnual:Eye Exam: 03/25/20 - no retinopathy Carmen Rick NP [address] [place], [address], [facility] - [facility] 07/16/2021 07:57:05
--- OUTSIDE RECORDS SUMMARY | 2024-11-07 17:00 | XMS_ITS | Encounter Summary ---
Author Organization [employer] Address [address] [place] [address] Care Team Providers Care Lab Intern Name Role Phone Jolly London MD Primary Care Provider [phone] Javier Benton PharmD Unavailable [phone] Reason for Referral * Consultation (Routine) - Pending Review Specialty Diagnoses / Procedures Referred By Contac t Referred To Contact Pharmacy Diagnoses Primary hypertension Type 2 diabetes mellitus with hyperglycemia, without long-term current use of insulin (CMS/HCC) Jolly London MD [address] [place] [address] Phone: tel: fax: Referral ID Status Reason Start Date Expiration Date Visits Requested Visits Authorized [id number] Pending Review Consult and Treat 4 05/29/2025 6 6 Encounter Details Date Type Department Care Team (Late st Contact Info) Description 05/29/2024 Orders Only [facility] [address] [place], [place] [phone] Jolly London MD [address], [place] [phone] Primary hypertension (Primary Dx); Type 2 diabetes mellitus with hyperglycemia, without long-term current use of insulin (CMS/HCC) Social History Tobacco Use Types Packs/Day Years Used Date Smoking Tobacco: Former Cigarettes Passive Smoke Exposure: Never Smokeless Tobacco: Never Depression Answer Date Recorded Patient Health Questionnaire-9 Score 0 02/14/2023 Housing Stability Answer Date Recorded What is your housing situation today? I have conrad onlan 10/07/[address] you li [...] Description 11/19/2024 3:30 PM EDT Office Visit [facility] [address] [place] [address] Jolly London MD [address] [place] [address] Scheduled Referrals Name Type Priority Associated Diagnoses Orde r Schedule Referral to Pharmacy CDTM Outpatient Referral Routine Primary hypertension Type 2 diabetes mellitus with hyperglycemia, without long-term current use of insulin ([facility]) Ordered: 05/29/2024 documented as of this encounter Goals Goal Patient Goal Type Associated Problems Recent Progress Patient-Stated? Author Blood Pressure < 140/90 Blood Pressure 132/68( 025 2:29 PM EDT) No Javier Benton, PharmD documented as of this encounter Visit Diagnoses Diagnosis Primary hypertension- Primary Unspecified essential hypertension Type 2 diabetes mellitus with hyperglycemia, without long-term current use of insulin ([facility]) documented in this encounter Additional Health Concerns Assessment Noted Time PHQ-9 Depression Total Score: 0 02/15/20 23 1:30 PM EDT documented as of this encounter Care Teams Lab Intern Relationship Specialty Start Date End Date Jolly London MD [address] [place] [address] PCP - General Family Medicine 06/29/12 Javier Benton, Marc [address] [place] [address] Pharmacist Internal Medicine 01/14/23 documented as of this encounter
== END 2024-11-07 14:08 | disposition home or self-care (01) ==
LOC: HO.HHCL 14:07
PROVIDERS: Visit Provider Family Medicine
DX: I10 Essential (primary) hypertension (principal)
CPT/HCPCS: 36415; 80048

== ENCOUNTER 2025-02-20 10:38 | Emergency (ER) | payer OTHER, SELFPAY ==
--- NOTE | ~2025-02-20 | XR_ITS ---
EXAMINATION: XR HIP, RIGHT CLINICAL INFORMATION: atraumatic R buttock pain COMPARISON: None available. TECHNIQUE: Two views of the right hip. FINDINGS: Normal bone mineralization. No fracture, dislocation, or suspicious bone lesion. The pelvis appears intact. The hip joints appear intact. There are mild degenerative changes in both hip joints. 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 The sacrum appears intact. There are degenerative changes in both SI joints. No discrete soft tissue abnormalities. XR/XR hip RT w PEL1V IMPRESSION: No acute bony abnormalities. Electronically signed by: Simón Aden MD 02/20/2025 11:55 AM EDT
[2025-02-20 10:58] VITALS: BP 144/63; PULSE 95; RESP 18; TEMP 36.6; O2SAT 98; BMI 29.1
--- NOTE | 2025-02-20 12:19 | ED.GENADULT ---
HPI - General Adult General Chief complaint: General Medical Stated complaint: Lower back Right pain Time Seen by Provider: 02/20/25 12:19 Source: patient Mode of arrival: ambulatory Limitations: no limitations History of Present Illness ED Provider: MOIRA SANCHEZ PA-C HPI narrative: 89 year old Peruvian speaking male with pmhx significant for prostate caner and neurogenic bladder presents to the ED today for evaluation of low back pain x weeks. Pain radiates from right low back into his right buttock. He states that he has been elevating both of his legs on a chair recently to help with his leg swelling. No known injury/trauma to the back. Denies hx of spinal surgery. Denies difficulty ambulating. Denies numbness/tinglingwekness of the LE. Related Data Home Medications ?Medication ?Instructions ?Recorded ?Confirmed amlodipine 5 mg tablet 5 mg PO DAILY 04/12/22 09/17/24 aspirin 81 mg tablet,delayed 81 mg PO DAILY 04/12/22 09/17/24 release atorvastatin 20 mg tablet 20 mg PO BEDTIME 04/12/22 09/17/24 blood sugar diagnostic (FreeStyle #10 ea 04/12/22 08/03/23 Lite Strips) ferrous sulfate 325 mg (65 mg 325 mg PO BID 04/12/22 09/17/24 iron) tablet (FeroSul) lancets 33 gauge (TRUEplus Lancets) #100 ea 04/12/22 08/03/23 mirabegron 50 mg tablet,extended 50 mg PO BEDTIME 04/12/22 09/17/24 release 24 hr (Myrbetriq) pioglitazone 45 mg tablet 45 mg PO DAILY@1900 04/12/22 09/17/24 ascorbic acid (vitamin C) 500 mg 500 mg PO BEDTIME 02/17/24 09/17/24 tablet (Vitamin C) cyanocobalamin (vitamin B-12) 1,000 mcg PO BEDTIME 02/17/24 09/17/24 1,000 mcg tablet metformin 750 mg tablet,extended 750 mg PO BIDWM@1200,1700 02/17/24 09/17/24 release 24 hr magnesium oxide 400 mg (241.3 mg 400 mg PO DAILY@1200 09/17/24 09/17/24 magnesium) tablet Previous Rx's ?Medication ?Instructions ?Recorded compression socks, medium #2 ea 02/20/25 naproxen 500 mg tablet 500 mg PO Q12H PRN pain (scale 02/20/25 score 1-3) #20 tabs Allergies Allergy/AdvReac Type Severity Reaction Status Date / Time cephalexin Allergy Intermediate Constipatio Verified 02/20/25 10:59 n oxycodone (From Percocet) AdvReac Mild VOMITING/DI Verified 02/20/25 10:59 ZZINES percocet Allergy Unknown nausea/dizz Uncoded 02/20/25 10:59 iness Review of Systems Review of Systems: Yes all other systems are reviewed and are negative [facility] Past Medical History Attestation statement: The following information was validated with the patient. Source: old records reviewed and nursing notes reviewed Medical History Tubular adenoma of colon Neurogenic bladder Chronic anemia HTN (hypertension) Prostate cancer Hypercholesterolemia Diabetes mellitus Renal cyst Choledocholithiasis Diverticulosis Surgical History History of colonoscopy History of hernia surgery H/O prostatectomy Family History Family History Unknown Cancer Social History Social History Household Members: None Housing: Apartment Do you presently have visiting nurse or other home services: Yes (Meals on wheels) Alcohol intake: never Patient Tobacco Use Status: Never used Tobacco Advance Directives: Yes Advance Directives on File: Yes Advance Directives Date on File: 02/22/24 Do you have a plan to hurt others: No Plan service: No Current occupational status: retired Current occupation: right handed Physical Exam ED Vital Signs: Vital Signs - 24 hr 02/20/25 10:58 02/20/25 12:28 Temperature 98 F 98 F Pulse Rate 95 95 Respiratory Rate 18 18 Blood Pressure 144/63 H 144/63 H Pulse Oximetry 98 98 Oxygen Delivery Method Room Air Room Air BMI result Body Mass Index 29.1 hypertensive General: Well appearing, in no acute distress. Skin: Warm, dry, intact. No rashes or lesions. Head: Normocephalic, atraumatic. EENT: Hearing is intact b/l. Conjunctiva clear. Sclera is anicteric. PERRLA. EOM intact. Moist mucous membranes.? Cardiac: Chest wall symmetric. RRR Lungs: Normal respiratory effort without accessory muscle use. CTA bilaterally. No rales, rhonchi, or wheezes.? Back: No midline spinous or paraspinal tenderness. No step off deformity. Ext: 1+ pitting edema to b/l LEs Neuro: AOx3. Normal speech. Strength 5/5 intact throughout. No saddle anesthesia. Sensation intact to light touch. NV intact distally. Ambulating with steady gait. Course Course Course Narrative: xrs unremarkabe. clinically, I have concern for sciatica, possibly aggravated from patient elevated his legs recently. advised naproxen + compression stockings. vitals stable - not hypoxic. well appearing. Patient has remained stable throughout ED visit today. Discussed worrisome signs and symptoms and when to return to the ED. All questions answered at this time. Patient is agreeable with disposition and stable for discharge. Medical Decision Making Medical Decision Making [facility] Narrative: 89 year old Peruvian speaking male with pmhx significant for prostate caner and neurogenic bladder presents to the ED today for evaluation of low back pain x weeks. Patient is hypertensive. Vitals are otherwise WNL. he is well appearing and in NAD. on exam, there is no midline lumbar spinous tenderness or step off. ambulating w/ steady gait. SILT throughout. 1+ pitting edema to B/L LEs. no calf tenderness. Differential diagnosis includes contusion, sciatica, arthritis, lumbar radiculopathy, fracture, dislocation, dependent edema. Unlikely UTI, renal colic, nephrolithiasis. Unlikely cauda equina, Guillain-T[place]ahannock, epidural abscess, cord compression. Plan for x-rays and re-evaluation. Differential Diagnosis Differential Diagnoses: The differential diagnosis associated with the presentation includes as above. Admission/Observation not inidcated. Independent Interpretation I performed an independent interpretation of an: Plain X-Ray Interpretation: xr right hip/ pelvis without acute fracture Radiology Impression Discussion of test interpretation with radiology: I have reviewed the radiologist's reading. Radiologist Impression: Date of Service: 02/20/25 Procedure(s): XR hip RT w PEL1V Accession Number(s): [id number] cc: Moira Sanchez; Jolly London MD~ EXAMINATION: XR HIP, RIGHT CLINICAL INFORMATION: atraumatic R buttock pain COMPARISON: None available. TECHNIQUE: Two views of the right hip. FINDINGS: Normal bone mineralization. No fracture, dislocation, or suspicious bone lesion. The pelvis appears intact. The hip joints appear intact. There are mild degenerative changes in both hip joints. 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 The sacrum appears intact. There are degenerative changes in both SI joints. No discrete soft tissue abnormalities. XR/XR hip RT w PEL1V IMPRESSION: No acute bony abnormalities. Electronically signed by: Simón Aden MD 02/20/2025 11:55 AM EDT RP External Record Review External record reviewed: Inpatient record Prescription Management I considered prescription management with: Pain Medication Social Determinants Patient?s care significantly limited by Social Determinants of Health including: Other Social Determinant of Health Critical Care Time Critical Care Time Critical Care Time: No Discharge Plan Discharge Clinical Impression: Sciatica, Dependent edema Patient Disposition: Home, Self-Care Instructions: Sciatica (ED), Leg Edema (ED), Lower Back Exercises (ED) Additional Instructions: Your work up today is reassuring. As discussed, I have suspicion your pain is caused by your sciatic nerve which may be aggravated by you elevated your legs recently - see home care instructions. I am sending an anti-inflammatory pain medication to your pharmacy. Do not take this with other NSAIDs such as Motrin/Tylenol as this can cause increased risk of GI bleeding. In regards to your recent leg swelling, I recommend wearing compression stockings and elevating your legs whenever possible. I recommend a diet low in sodium (less than 2 grams per day). Monitor your weight daily. Follow up with your PCP this week. Return to the ED with new or worsening symptoms. In the case of an emergency call 911. Prescriptions: New naproxen 500 mg tablet 500 mg PO Q12H PRN (Reason: pain (scale score 1-3)) Qty: 20 0RF (DME) compression socks, medium Misc See Rx Instructions .Route Qty: 2 0RF Rx Instructions: As directed No Action cyanocobalamin (vitamin B-12) 1,000 mcg tablet 1,000 mcg PO BEDTIME ascorbic acid (vitamin C) [Vitamin C] 500 mg tablet 500 mg PO BEDTIME metformin 750 mg tablet extended release 24 hr 750 mg PO BIDWM@1200,1700 magnesium oxide 400 mg (241.3 mg magnesium) tablet 400 mg PO DAILY@1200 aspirin 81 mg tablet,delayed release (DR/EC) 81 mg PO DAILY amlodipine 5 mg tablet 5 mg PO DAILY (DME) lancets [TRUEplus Lancets] 33 gauge misc See Rx Instructions .ROUTE .MEDSUPPLY Qty: 100 Rx Instructions: As directed (DME) FreeStyle Lite Strips Strip See Rx Instructions .ROUTE .MEDSUPPLY Qty: 10 Rx Instructions: As directed atorvastatin 20 mg tablet 20 mg PO BEDTIME ferrous sulfate [FeroSul] 325 mg (65 mg iron) tablet 325 mg PO BID pioglitazone 45 mg tablet 45 mg PO DAILY@1900 Myrbetriq 50 mg tablet extended release 24 hr 50 mg PO BEDTIME Referrals: Jolly London MD [Primary Care Provider, Internal Medicine] Interventions: ED Discharge Assessment Last Done: 02/20/25 12:28 Discharge Date/Time: 02/20/25 12:28 Print Language: Unable To Collect
[2025-02-20 12:28] VITALS: BP 144/63; PULSE 95; RESP 18; TEMP 36.6; O2SAT 98
--- OUTSIDE RECORDS SUMMARY | 2025-02-20 12:59 | XMS_ITS | Patient Health Record ---
Author Organization [facility] Billing Info Address [address] [place] [address] [place] [address] Care Team Providers Care Children'S Tutor Nursery Name Role Phone Nadia Black Primary Care Provider CRIS Lr Unavailable [phone] Allergies No Known Allergies Reason For Referral [...] Problem Status W/U Status Risk Notes Problem [id number] Urinary frequenc y (R35.0) Active confirmed Problem [id number] Prostate cancer (C61) Active confirmed Problem [id number] Urge incontinenc e of urine (N39.41) Active confirmed Plan Of Treatment No Information Insurance Providers Payer Name Payer Address Payer Phone Subscriber Number Group Number Insured Name Patient Relationship to Insured Coverage Start Date Coverage End Date [facility] [address] TELMA BOATENG [id number] Toni Leyva Self - patient is the insured 8 [facility] [address] [place], [place] [id number] Toni Leyva Self - patient is the insured 1 1 MEDICARE [place] PART B [address] [facility] SHEY TELMA YOUNG [id number] Toni Leyva Self - patient is the insured Medical (General) History Medical History History ICD Code Prostate cancer Diabetes mellitus Hypertension Hyperlipidemia Constipation UTI Hemriods Surgical History Surgery Date(Month/Year) prostate circumcision cataract surgery
--- OUTSIDE RECORDS SUMMARY | 2025-02-20 12:59 | XMS_ITS | Encounter Summary ---
Author Organization [employer] Address [address] [facility] [address] [place] [address] Care Team Providers Care Knife Cutter Name Role Phone Jolly London MD Primary Care Provider [phone] Javier Benton PharmD Unavailable [phone] Reason for Visit * Reason Comments Med Refill Encounter Details Date Type Department Care Team ([facility] st Contact Info) Description 11/13/2023 Refill [facility] [address] [place], [place] [phone] Jolly London MD [address] [place], [place] [phone] Social History Tobacco Use Types Packs/Day Years [...] t he electric, gas, oil or water [employer] threatened to shut off services in your [...] Care Team (Late st Contact Info) Description 02/25/2025 3:00 PM EDT Office Visit [facility] [address] [place] [address] [phone] Jolly London MD [address] [place] [phone] 06/10/2025 2:00 PM EST Medication Management [facility] [address] [place] [phone] Javier Benton, PharmDiamond [address] [place] [address] documented as of this encounter Goals Goal Patient Goal Type Associated Problems Recent Progress Patient-Stated? Author Blood Pressure < 140/90 Blood Pressure 134/68( 025 10:11 AM EDT) No Javier Benton PharmD documented as of this encounter Visit Diagnoses Not on filedocumented in this encounter Additional Health Concerns Assessment Noted Time PHQ-9 Depression Total Score: 0 02/15/20 23 1:30 PM EDT documented as of this encounter Care Teams Knife Cutter Relationship Specialty Start Date End Date Jolly London MD [address] [place] [address] [phone] PCP - General Family Medicine 06/29/12 Javier Benton, AreliD [address] [place] [address] [phone] Pharmacist Internal Medicine 01/14/23 documented as of this encounter
== END 2025-02-20 12:28 | disposition home or self-care (01) ==
PROVIDERS: Emergency Provider Emergency Medicine; PCP Family Medicine
DX: M54.41 Lumbago with sciatica, right side (principal); R60.9 Edema, unspecified; R10.9 Unspecified abdominal pain; Z79.899 Other long term (current) drug therapy
CPT/HCPCS: 73502; 99282; 99283

== ENCOUNTER → 2025-02-20 11:34 | Outpatient (BNV) | payer OTHER, SELFPAY | PROVIDERS: PCP Family Medicine; Visit Provider Radiology Diagnostic Radiology | DX: M16.11 Unilateral primary osteoarthritis, right hip (principal) | CPT/HCPCS: 73502 ==

== ENCOUNTER 2025-02-27 14:31 | Outpatient (REF) | payer OTHER, SELFPAY ==
--- OUTSIDE RECORDS SUMMARY | 2025-02-27 14:43 | XMS_ITS | Patient Health Record ---
Author Organization [facility] Billing Info Address [address] [place] [address] [place] [address] Care Team Providers Care Power Saw Mechanic Name Role Phone Nadia Black Primary Care Provider CRIS Lr Unavailable [phone] Allergies No Known Allergies Reason For Referral [...] Problem Status W/U Status Risk Notes Problem [id number] Urinary frequenc y (R35.0) Active confirmed Problem [id number] Prostate cancer (C61) Active confirmed Problem [id number] Urge incontinenc e of urine (N39.41) Active confirmed Plan Of Treatment No Information Insurance Providers Payer Name Payer Address Payer Phone Subscriber Number Group Number Insured Name Patient Relationship to Insured Coverage Start Date Coverage End Date [facility] [address] TELMA BOATENG [id number] Toni Leyva Self - patient is the insured 8 [facility] [address] [place], [place] [id number] Toni Leyva Self - patient is the insured 1 1 MEDICARE [place] PART B [address] [facility] SHEY TELMA YOUNG [id number] Toni Leyva Self - patient is the insured Medical (General) History Medical History History ICD Code Prostate cancer Diabetes mellitus Hypertension Hyperlipidemia Constipation UTI Hemriods Surgical History Surgery Date(Month/Year) prostate circumcision cataract surgery
--- OUTSIDE RECORDS SUMMARY | 2025-02-27 14:43 | XMS_ITS | Encounter Summary ---
Author Organization [employer] Address [address] [facility] [address] [place] [address] Care Team Providers Care Sedimentationist Name Role Phone Jolly London MD Primary Care Provider Javier Benton PharmD Unavailable [phone] Reason for Visit * Reason Comments Med Refill Encounter Details Date Type Department Care Team ([facility] st Contact Info) Description 11/13/2023 Refill [facility] [address] [place], [place] [phone] Jolly London MD [address] [place], [place] [phone] Social History Tobacco Use Types Packs/Day Years [...] t he electric, gas, oil or water [employer] threatened to shut off services in your [...] Care Team (Late st Contact Info) Description 06/10/2025 2:00 PM EST Medication Management [facility] [address] [place] [address] Javier Benton PharmD [address] [place] [address] documented as of this encounter Goals Goal Patient Goal Type Associated Problems Recent Progress Patient-Stated? Author Blood Pressure < 140/90 Blood Pressure 144/70( 025 3:24 PM EDT) No Javier Benton, Marc documented as of this encounter Visit Diagnoses Not on filedocumented in this encounter Additional Health Concerns Assessment Noted Time PHQ-9 Depression Total Score: 0 02/15/20 23 1:30 PM EDT documented as of this encounter Care Teams Sedimentationist Relationship Specialty Start Date End Date Jolly London MD [address] [place] [phone] PCP - General Family Medicine 06/29/12 Javier Benton, PharmD [address] [place] [phone] Pharmacist Internal Medicine 01/14/23 documented as of this encounter
[2025-02-27 17:19] LABS: Microalbum/Creatinine Ratio Ur 9.4 ug/mg cr (<30)
== END 2025-02-27 14:32 | disposition home or self-care (01) ==
LOC: HO.HHCL 14:31
PROVIDERS: PCP Family Medicine; Visit Provider Family Medicine
DX: E11.65 Type 2 diabetes mellitus with hyperglycemia (principal)
CPT/HCPCS: 82043; 82570

== ENCOUNTER 2025-03-11 12:17 | Emergency (ER) | payer OTHER, SELFPAY ==
--- NOTE | ~2025-03-11 | CT_ITS ---
EXAMINATION: CT ABDOMEN AND PELVIS WITH CONTRAST CLINICAL INFORMATION: Low back pain, black stools, prostate cancer COMPARISON: February 17, 2024 TECHNIQUE: Multidetector volumetric images were obtained from the superior aspect of the liver through the pubic symphysis following administration 85 mL of Omnipaque 350 intravenous contrast. Sagittal and coronal reformatted images were obtained on the technologist's workstation. Oral contrast: No This CT examination was performed using dose optimization techniques as appropriate, variously including the following: *Automated exposure control *Adjustment of mA and/or kV according to patient size (this includes techniques or standardized protocols for targeted exams where dose is matched to indication/reason for exam; i.e. extremities or head) *Use of iterative reconstruction technique DLP: 528 mGY*cm FINDINGS: LUNG BASES: Dependent atelectasis is increased from the prior. LIVER, GALLBLADDER, AND BILIARY TREE: The liver is normal in size, shape, and attenuation. No focal hepatic lesion or biliary ductal dilatation is present. Color surgically absent. There are clips in the gallbladder fossa. PANCREAS: Unremarkable. SPLEEN: Unremarkable. ADRENAL GLANDS: Unremarkable. KIDNEYS AND URETERS: Simple renal cysts are again noted in the left kidney. Chronic mild hydronephrosis is stable. Dilation of the proximal ureters is also stable.. No stones are identified. BLADDER: Unremarkable. GASTROINTESTINAL TRACT: Extensive diverticulosis in the descending and sigmoid colon is again noted. There are also scattered pseudodiverticula in the right and transverse colon. No wall thickening or adjacent fat stranding is identified. The appendix is thin-walled and gas-filled. ABDOMINAL WALL: Again noted is well-healed surgical scar extending from the umbilicus to the pubic symphysis. LYMPH NODES: Normal. VASCULAR: Moderately calcified. PELVIC VISCERA: Penile prosthesis again noted. Multiple surgical clips are placed from prostatectomy. OSSEOUS STRUCTURES: Stable moderate compression fracture of L3 is again noted. CT/CT abdomen pelvis w IV con IMPRESSION: Extensive diverticulosis without evidence of diverticulitis. Stable L3 compression fracture, moderate. Stable mild hydronephrosis and hydroureter through the mid ureter. Fleischner guidelines were followed. Electronically signed by: Maxim Ellis MD 03/11/2025 04:37 PM EDT
--- NOTE | 2025-03-11 12:20 | ED.GENADULT ---
HPI - General Adult General Chief complaint: General Medical Stated complaint: BACK PAIN PER EMS Time Seen by Provider: 03/11/25 12:19 Source: patient, RN notes reviewed, old records reviewed and pediatrician/medical doctor Mode of arrival: ambulatory Limitations: language barrier History of Present Illness ED Provider: Mynor HPI narrative: Patient is an 89-year-old Georgian speaking male with history of prostate CA, completed treatment in [place], neurogenic bladder, anemia presenting to the ED via EMS for worsening lower back pain. He states that his pain began weeks ago when getting out of bed in the morning. States when he stood, he felt his back become tight. Initially pain was radiating down right leg to knee. Now he is having radiation of pain down both legs to knees. States he is still able to ambulate without any assistive devices, but the pain is severe. Has been using Tylenol and a prescription cream with little relief. He was seen in this ED on 02/20 and had an x-ray of the hip/pelvis which was unremarkable. He was treated for sciatica with naproxen. He also notes that he has been having urinary frequency and foul odor to his urine. He also states that he has had black stool since the last time he saw his urologist but was told to follow up with his PCP about it and has not. Denies any abdominal pain. Denies saddle anesthesia or bowel or bladder incontinence. Denies recent fevers. In person all terrain vehicle technician, Justo, present for interpreting during assessment. MD complaint: back pain Onset (ago): week(s) Related Data Home Medications ?Medication ?Instructions ?Recorded ?Confirmed amlodipine 5 mg tablet 5 mg PO DAILY 04/12/22 09/17/24 aspirin 81 mg tablet,delayed 81 mg PO DAILY 04/12/22 09/17/24 release atorvastatin 20 mg tablet 20 mg PO BEDTIME 04/12/22 09/17/24 blood sugar diagnostic (FreeStyle #10 ea 04/12/22 08/03/23 Lite Strips) ferrous sulfate 325 mg (65 mg 325 mg PO BID 04/12/22 09/17/24 iron) tablet (FeroSul) lancets 33 gauge (TRUEplus Lancets) #100 ea 04/12/22 08/03/23 mirabegron 50 mg tablet,extended 50 mg PO BEDTIME 04/12/22 09/17/24 release 24 hr (Myrbetriq) pioglitazone 45 mg tablet 45 mg PO DAILY@1900 04/12/22 09/17/24 ascorbic acid (vitamin C) 500 mg 500 mg PO BEDTIME 02/17/24 09/17/24 tablet (Vitamin C) cyanocobalamin (vitamin B-12) 1,000 mcg PO BEDTIME 02/17/24 09/17/24 1,000 mcg tablet metformin 750 mg tablet,extended 750 mg PO BIDWM@1200,1700 02/17/24 09/17/24 release 24 hr magnesium oxide 400 mg (241.3 mg 400 mg PO DAILY@1200 09/17/24 09/17/24 magnesium) tablet Previous Rx's ?Medication ?Instructions ?Recorded compression socks, medium #2 ea 02/20/25 naproxen 500 mg tablet 500 mg PO Q12H PRN pain (scale 02/20/25 score 1-3) #20 tabs lidocaine 5 % topical patch 2 patch topical DAILY #15 ea 03/11/25 prednisone 20 mg tablet 20 mg PO DAILY #6 tabs 03/11/25 Allergies Allergy/AdvReac Type Severity Reaction Status Date / Time cephalexin Allergy Intermediate Constipatio Verified 03/11/25 12:26 n oxycodone (From Percocet) AdvReac Mild VOMITING/DI Verified 03/11/25 12:26 ZZINES percocet Allergy Unknown nausea/dizz Uncoded 03/11/25 12:26 iness Review of Systems Review of Systems: As per HPI Yes all other systems are reviewed and are negative Constitutional: Constitutional: Reports as per HPI PMFSH Past Medical History Medical History Tubular adenoma of colon Neurogenic bladder Chronic anemia HTN (hypertension) Prostate cancer Hypercholesterolemia Diabetes mellitus Renal cyst Choledocholithiasis Diverticulosis Surgical History History of colonoscopy History of hernia surgery H/O prostatectomy Family History Family History Unknown Cancer Social History Social History Household Members: None Housing: Apartment Do you presently have visiting nurse or other home services: Yes (Meals on wheels) Alcohol intake: never Patient Tobacco Use Status: Never used Tobacco Smoked in Last 30 Days: No Use of substances other than those prescribed or required for medical reasons: No Advance Directives: Yes Advance Directives on File: Yes Advance Directives Date on File: 02/22/24 Do you have a plan to hurt others: No Plan service: No Current occupational status: retired Current occupation: right handed Physical Exam ED Vital Signs: Vital Signs - 24 hr 03/11/25 12:25 03/11/25 12:35 03/11/25 14:47 Temperature 98.3 F 98.3 F Pulse Rate 92 92 82 Respiratory Rate 17 17 18 Blood Pressure 115/92 H 115/92 H 133/68 Pulse Oximetry 96 96 97 Oxygen Delivery Method Room Air Room Air Room Air BMI result Body Mass Index 28.3 Vital signs have been reviewed and appear to be correct. Blood pressure normal. Heart rate normal. Respiratory rate normal. Temperature normal. Oxygen saturation normal. Const General: cooperative, healthy appearing and no acute distress Orientation/consciousness: oriented to person, oriented to place, oriented to time and patient oriented x3 Limitations: no limitations HENRI Head: Yes normocephalic and Yes atraumatic Ears: external ears normal General nose exam: Normal external nose present Face and sinus: Yes face symmetric Mouth: oropharynx normal and moist mucous membranes Throat: Yes uvula midline Eyes Pupils: Equal, round and reactive pupils present Neck Neck: Yes normal visual inspection and Yes supple Resp Effort & Inspection: normal respiratory effort and able to speak in complete sentences Auscultation: clear to auscultation bilaterally Cardio Rate: regular rate Rhythm: regular rhythm Heart sounds: S1 normal heart sound present and S2 normal heart sound present GI Palpation (GI): Soft to palpation and nontender Auscultation: normoactive bowel sounds General: Yes no CVA tenderness Back/Spine/Pelvis Back: no CVA tenderness Thoracic/Lumbar Spine: No thoracic spinal tenderness and No lumbar spinal tenderness Skin General skin exam: elasticity normal and turgor normal Neuro General: oriented to person, oriented to place, oriented to time, patient oriented x3, tone normal, moves all extremities, Normal light touch and pain sensation, no focal motor deficits, CN's II-XI intact bilaterally and deep tendon reflexes 2+ bilaterally Cranial nerves: Yes Equal, round and reactive pupils present Cognition (Neuro): normal cognition Motor exam (neuro): 5/5 motor strength present throughout, Normal motor muscle tone present throughout and Motor abnormalities not present Extrem General: Yes full ROM, Yes no pedal edema and Yes no calf tenderness Psych Mental Status: mental status grossly normal Affect: normal affect Thought process: Normal thought process present Medications Administered Discontinued Medications Generic Name Dose Route Start Last Admin Trade Name Freq PRN Reason Stop Dose Admin Sodium Chloride 1,000 mls @ 999 mls/hr 03/11/25 14:45 03/11/25 15:02 Ns IV 03/11/25 15:45 999 mls/hr .Q1H1M JENS Administration Iohexol 100 ml 03/11/25 15:48 03/11/25 15:50 Iohexol 350 Mg/Ml 100 Ml Infus..Btl IV 03/11/25 15:49 85 ml ONCE ONE Administration Medical Decision Making Medical Decision Making MDM Narrative: Patient is an 89-year-old Georgian speaking male with history of prostate CA, completed treatment in [place], neurogenic bladder, anemia presenting to the ED via EMS for worsening lower back pain. On exam patient is awake, A+Ox3, VS WNL, afebrile, normal neurological exam without focal deficits, physical exam findings as above. Given reported symptoms and physical exam findings, initial differential includes but is not limited to initial differential includes lumbar strain, lumbar radiculopathy, degenerative disc disease, disc herniation, spinal stenosis, spondylosis, UTI/pyelonephritis, GI bleed. Less likely vertebral fracture. Some concern for malignancy/mass given history of prostate CA and progression of symptoms. Unlikely SEA, cauda equina/cord compression. Labs notable for no leukocytosis, anemia not at transfusable level, one point drop in Hgb from September of this year, elevated BUN with normal creatinine. CT A/P notable for stable L3 compression fracture previously noted on CT abdomen pelvis from February of 2024, no evidence of malignancy/mass. My interpretation is in agreement with the radiologist's interpretation. UA is without evidence of infection. Will treat for lumbar radiculopathy with course of prednisone and topical lidocaine patches. Offered physical therapy evaluation for possible short-term rehab placement which patient declined. He states that he has been able to ambulate, drive his vehicle, etc. at home without difficulty. Instructed patient to follow up with his PCP. Return precautions discussed at bedside. Patient verbalized understanding of and agreement with plan. In-person all terrain vehicle technician was utilized for all interactions, assessments, and discussions. Differential Diagnosis Differential Diagnoses: The differential diagnosis associated with the presentation includes as per [facility] Admission/Observation Consideration of admission/observation: Escalation of care including admission/observation considered Patient would have been admitted to the hospital had their clinical presentation warranted hospital admission. Lab Data [facility] [place] Lab Attestation statement: I reviewed the patient's lab results. as per [facility] 03/11/25 13:00 03/11/25 13:00 Labs: Lab Results 03/11/25 03/11/25 Range/Units 13:00 15:23 WBC 5.9 (4.8-10.8) X10*3/uL RBC 3.65 L (4.60-5.80) X10*6/uL Hgb 9.9 L (14.0-18.0) g/dl Hct 30.3 L (42.0-52.0) % MCV 83.0 (80.0-98.0) fL MCH 27.1 (27.0-33.0) pg MCHC 32.7 (31.0-36.0) g/dl RDW 17.1 H (11.0-16.0) % Plt Count 281 D (160-400) X10*3/uL MPV 9.7 (9.4-12.4) fL Immature Gran % (Auto) 0.5 H (0.0-0.4) % Neut % (Auto) 77.9 H (45-73) % Lymph % (Auto) 6.8 L (20-40) % [place] % (Auto) 13.3 H (2-11) % Eos % (Auto) 1.2 (0-4) % Baso % (Auto) 0.3 (0-2) % Lymph # (Auto) 0.4 L (1.2-4.9) X10*3/uL [place] # (Auto) 0.8 (0.1-1.2) X10*3/uL Eos # (Auto) 0.1 (0.0-0.4) X10*3/uL Baso # (Auto) 0.0 (0.0-0.2) X10*3/uL Abs Immat Gran (auto) 0.03 (0.00-0.03) X10*3/uL Absolute Neuts (auto) 4.6 (2.0-8.3) x10*3/uL Absolute Nucleated RBC 0.000 (0.0-0.012) X10*3/uL Nucleated RBC % (auto) 0.0 (0.0-0.2) /100WBC Sodium 140 (135-145) mmol/L Potassium 4.1 (3.3-5.1) mmol/L Chloride 107 (96-108) mmol/L Carbon Dioxide 25 (22-29) mmol/L Anion Gap 12 (12-20) BUN 22 H (9-16) mg/dL Creatinine 1.14 (0.5-1.4) mg/dL Estim Creat Clear Calc 45.2 Estimated GFR > 60 Random Glucose 192 H (60-115) mg/dL Calcium 9.8 (8.4-10.2) mg/dL Total Bilirubin 0.6 (0.0-1.0) mg/dL AST 27 (5-37) U/L ALT 21 (0-40) U/L Alkaline Phosphatase 116 (39-117) U/L Total Protein 6.6 (6.5-8.0) g/dL Albumin 3.9 (3.5-5.0) g/dL Urine Color Yellow Urine Appearance Clear Urine pH 8.5 (5.0-9.0) Ur Specific [place] 1.015 (1.005-1.025) Urine Protein Negative (Neg-Trace) mg/dL Urine Glucose (UA) Negative (Negative) mg/dL Urine Ketones Negative (Negative) mg/dL Urine Blood Negative (Negative) Urine Nitrite Negative (Negative) Ur Leukocyte Esterase Negative (Negative) Independent Interpretation I performed an independent interpretation of an: CT Scan Interpretation: CT A/P notable for stable L3 compression fracture previously noted on CT abdomen pelvis from February of 2024, no evidence of malignancy/mass. Radiology Impression Discussion of test interpretation with radiology: I have reviewed the radiologist's reading. Radiologist Impression: CT/CT abdomen pelvis w IV con IMPRESSION: Extensive diverticulosis without evidence of diverticulitis. Stable L3 compression fracture, moderate. Stable mild hydronephrosis and hydroureter through the mid ureter. Fleischner guidelines were followed. External Record Review External record reviewed: Inpatient record, Office record and Outpatient record Prescription Management I considered prescription management with: Pain Medication and Other Discharge Plan Discharge Clinical Impression: Bilateral lumbar radiculopathy Patient Disposition: Home, Self-Care Instructions: Lumbar Radiculopathy (ED) Additional Instructions: You were evaluated in the emergency department today for lower back pain. Your CT scan showed evidence of an old lumbar vertebral fracture but no new fractures or other concerning findings. Your pain is likely due to an inflammation of the sciatic nerve with runs from the lower back down both legs. You are being prescribed a course of prednisone which is a steroid to decrease inflammation. You are also being prescribed 5% topical lidocaine patches which you can wear for up to 12 hours in a 24 hour period. Do not apply heat directly over the patches. Use all medications as prescribed. Please schedule an appointment for follow-up with your primary care physician this week for further evaluation of your symptoms. Return to the emergency department if you experience worsening back pain, difficulty walking, fevers, numbness, tingling, incontinence, groin numbness or tingling, or any other concerning symptoms. Prescriptions: New prednisone 20 mg tablet 20 mg PO DAILY Qty: 6 0RF lidocaine 5 % adhesive patch,medicated 2 patch topical DAILY Qty: 15 0RF Rx Instructions: leave on most painful area for up to 12 hrs No Action cyanocobalamin (vitamin B-12) 1,000 mcg tablet 1,000 mcg PO BEDTIME ascorbic acid (vitamin C) [Vitamin C] 500 mg tablet 500 mg PO BEDTIME metformin 750 mg tablet extended release 24 hr 750 mg PO BIDWM@1200,1700 magnesium oxide 400 mg (241.3 mg magnesium) tablet 400 mg PO DAILY@1200 naproxen 500 mg tablet 500 mg PO Q12H PRN (Reason: pain (scale score 1-3)) Qty: 20 0RF (DME) compression socks, medium Misc See Rx Instructions .Route Qty: 2 0RF Rx Instructions: As directed aspirin 81 mg tablet,delayed release (DR/EC) 81 mg PO DAILY amlodipine 5 mg tablet 5 mg PO DAILY (DME) lancets [TRUEplus Lancets] 33 gauge misc See Rx Instructions .ROUTE .MEDSUPPLY Qty: 100 Rx Instructions: As directed (DME) FreeStyle Lite Strips Strip See Rx Instructions .ROUTE .MEDSUPPLY Qty: 10 Rx Instructions: As directed atorvastatin 20 mg tablet 20 mg PO BEDTIME ferrous sulfate [FeroSul] 325 mg (65 mg iron) tablet 325 mg PO BID pioglitazone 45 mg tablet 45 mg PO DAILY@1900 Myrbetriq 50 mg tablet extended release 24 hr 50 mg PO BEDTIME Print Language: Unable To Collect
[2025-03-11 12:25] VITALS: BP 115/92; BP 158/80; PULSE 104; PULSE 92; RESP 17; TEMP 36.8; O2SAT 96; O2SAT 97; BMI 28.3
[2025-03-11 12:35] VITALS: BP 115/92; PULSE 92; RESP 17; TEMP 36.8; O2SAT 96
[2025-03-11 13:04] LABS: MANUAL DIFF FLAG NO
[2025-03-11 13:05] LABS: Hematocrit 30.3 % (42.0-52.0); Hemoglobin 9.9 g/dl (14.0-18.0); Imm Gran Abs Auto 0.03 X10*3/uL (0.00-0.03); Imm Gran Pct Auto 0.5 % (0.0-0.4); Lymphocytes Absolute Auto 0.4 X10*3/uL (1.2-4.9); Mean Corpuscular HGB Conc 32.7 g/dl (31.0-36.0); Mean Corpuscular Hemoglobin 27.1 pg (27.0-33.0); Mean Corpuscular Volume 83.0 fL (80.0-98.0); NRBC Abs Auto 0.000 X10*3/uL (0.0-0.012); NRBC Pct Auto 0.0 /100WBC (0.0-0.2); Platelet Count 281 X10*3/uL (160-400); Red Blood Count 3.65 X10*6/uL (4.60-5.80); White Blood Count 5.9 X10*3/uL (4.8-10.8)
[2025-03-11 13:36] LABS: Alanine Aminotransferase 21 U/L (0-40); Albumin Level 3.9 g/dL (3.5-5.0); Alkaline Phosphatase 116 U/L (39-117); Anion Gap 12 (12-20); Aspartate Amino Transferase 27 U/L (5-37); Blood Urea Nitrogen 22 mg/dL (9-16); Calcium 9.8 mg/dL (8.4-10.2); Carbon Dioxide 25 mmol/L (22-29); Chloride 107 mmol/L (96-108); Creatinine Clr Calc Pharmacy 45.2; Estimated Glomerular Filt Rate > 60; Potassium 4.1 mmol/L (3.3-5.1); Sodium 140 mmol/L (135-145); Total Protein 6.6 g/dL (6.5-8.0)
--- OUTSIDE RECORDS SUMMARY | 2025-03-11 14:04 | XMS_ITS | Patient Health Record ---
Author Organization [facility] Billing Info Address [address] [place] [address] [place] [address] Care Team Providers Care Home Care Consultant Name Role Phone Nadia Black Primary Care Provider CRIS Lr Unavailable [phone] Allergies No Known Allergies Reason For Referral [...] Problem Status W/U Status Risk Notes Problem [id number] Urinary frequenc y (R35.0) Active confirmed Problem [id number] Prostate cancer (C61) Active confirmed Problem [id number] Urge incontinenc e of urine (N39.41) Active confirmed Plan Of Treatment No Information Insurance Providers Payer Name Payer Address Payer Phone Subscriber Number Group Number Insured Name Patient Relationship to Insured Coverage Start Date Coverage End Date [facility] [address] TELMA BOATENG [id number] Toni Leyva Self - patient is the insured 8 [facility] [address] [place], [place] [id number] Toni Leyva Self - patient is the insured 1 1 [place]ICARE [place] PART B [address] [facility] TELMA YOUNG [id number] Toni Leyva Self - patient is the insured Medical (General) History Medical History History ICD Code Prostate cancer Diabetes mellitus Hypertension Hyperlipidemia Constipation UTI Hemriods Surgical History Surgery Date(Month/Year) prostate circumcision cataract surgery
[2025-03-11 14:47] VITALS: BP 133/68; PULSE 82; RESP 18; O2SAT 97
[2025-03-11 15:34] LABS: Appearance Urine Clear; Glucose Urine UA Negative (Negative); PH 8.5 (5.0-9.0); Specific Gravity - Urine 1.015 (1.005-1.025)
[2025-03-11] MEDS: iohexoL 350 MG/ML 100 ML INFUS..BTL IV (15:50)
[2025-03-11] MEDS: Lidocaine 4 % Patch ADH..PATCH 2 PATCH TRANSDERMA (17:28)
[2025-03-11 17:42] VITALS: BP 142/68; PULSE 82; RESP 18; TEMP 36.6; O2SAT 97
== END 2025-03-11 18:11 | disposition home or self-care (01) ==
PROVIDERS: Registered Nurse Emergency; Emergency Provider Emergency Medicine; PCP Family Medicine
DX: M54.16 Radiculopathy, lumbar region (principal); M54.50 Low back pain, unspecified; R11.0 Nausea; R10.2 Pelvic and perineal pain; Z79.899 Other long term (current) drug therapy
CPT/HCPCS: 36415; 74177; 80053; 81003; 85025; 96360; 96361; 99284; Q9967

== ENCOUNTER → 2025-03-11 14:41 | Outpatient (BNV) | payer OTHER, SELFPAY | PROVIDERS: Emergency Provider Emergency Medicine; PCP Family Medicine; Visit Provider Radiology Diagnostic Radiology | DX: K57.30 Diverticulosis of large intestine without perforation or abscess without bleeding (principal) | CPT/HCPCS: 74177 ==

== ENCOUNTER 2025-03-22 10:47 | Emergency (ER) | payer OTHER, SELFPAY ==
--- NOTE | ~2025-03-22 | XR_ITS ---
EXAMINATION: XR CHEST CLINICAL INFORMATION: Surgical planing COMPARISON: September 17, 2024 TECHNIQUE: Frontal view of the chest was obtained. FINDINGS: Pulmonary reticular pattern more conspicuous in the inferior right perihilar region. No hyperinflation. No pleural effusion or pneumothorax. Cardiomediastinal silhouette size is normal. Calcified plaque thoracic aorta. S-shaped curvature of the mid thoracic spine. Multilevel thoracic spondylosis. Degenerative changes in the acromioclavicular joints. Osteopenia versus osteoporosis. XR/XR chest 1V IMPRESSION: Consider chronic interstitial lung disease without acute airspace disease. Electronically signed by: Alin Hurt MD 03/22/2025 01:28 PM EDT
--- NOTE | ~2025-03-22 | CT_ITS ---
EXAMINATION: CT LUMBAR SPINE WITHOUT CONTRAST CLINICAL INFORMATION: Low back pain after falling 5 days ago COMPARISON: March 11, 2025 and February 17, 2024 TECHNIQUE: Axial imaging was performed from mid T12 through the lower sacrum coccygeal region without IV contrast. Coronal and sagittal reformatted images were generated from the original axial data set. DLP: 528 mGY*cm ALARA: The examination used one or more of the following radiation dose reduction techniques: Automated exposure control, iterative reconstruction, and/or adjustment of mA and/or kV. FINDINGS: Moderate multifocal arterial vascular calcifications are noted. Renal cortical thinning is noted. There is an oblique fracture involving the superior left sacrum extending from the lateral margin of the left L5-S1 facet joint to the upper SI joint 17 mm caudal of the upper SI joint. Fracture is best appreciated on the coronal series. There are 5 [id number] lumbar segments. There is stable moderate superior endplate compression fracture of L3 which has been present since at least February 2024. There is stable multilevel disc space narrowing at L5-S1 with vacuum phenomena and calcification of the anterior disc annulus Non-marginal osteophytes are present at the lumbar vertebral endplates. CT/CT lumbar spine wo IV con IMPRESSION: There is an acute fracture of the superior left sacrum extending to the SI joint. There is a chronic moderate compression fracture of L3. Electronically signed by: Maxim Ellis MD 03/22/2025 12:33 PM EDT
[2025-03-22 10:58] VITALS: BP 132/61; PULSE 93; RESP 16; TEMP 36.2; O2SAT 98
[2025-03-22 11:06] VITALS: BP 138/70; PULSE 100; BMI 26.5
[2025-03-22 12:15] VITALS: BP 141/63; PULSE 81; RESP 16; TEMP 36.8; O2SAT 98
--- NOTE | 2025-03-22 12:19 | ED.GENADULT ---
HPI - General Adult General Chief complaint: Back Pain/Injury Stated complaint: FALL/SEEN 5 DAYS AGO,LOW BACK PAIN STILL PER EMS Time Seen by Provider: 03/22/25 11:17 Source: patient and EMS Mode of arrival: EMS Limitations: other (poor historian) History of Present Illness ED Provider: TELMA Terry HPI narrative: 89-year-old male history of neurogenic bladder, prostate cancer, longstanding back pain presents to the emergency department with complaints of low back pain with radiation to bilateral lower extremities. Typically radiates down the posterior aspect of both legs and he has associated numbness and tingling in both feet. Reports this has been going on for awhile however worsening over the past few days he does report it got significantly worse status post fall few days ago . He tells me about a week ago he stood up out of bed and he felt that his back became tight and painful from that moment on he has been experiencing back pain that goes down his legs, but after fall a few daysa ago pain got much worse, reprots falling on his bottom. He reports he was seen here for this however they did not do much and he is coming back for imaging or re-evaluation as the pain does not seem to be getting better. He has tried [id number] medicines and patches and creams all of which have not helped much. He denies urinary/bowel incontinence/retention, saddle anesthesias, fevers, chills, history of IVDA. As an aside patient states his urine has been foul smelling however this is an been ongoing for awhile. Patient denies a fall today however did have one recently Related Data Home Medications ?Medication ?Instructions ?Recorded ?Confirmed amlodipine 5 mg tablet 5 mg PO DAILY 04/12/22 09/17/24 aspirin 81 mg tablet,delayed 81 mg PO DAILY 04/12/22 09/17/24 release atorvastatin 20 mg tablet 20 mg PO BEDTIME 04/12/22 09/17/24 blood sugar diagnostic (FreeStyle #10 ea 04/12/22 08/03/23 Lite Strips) ferrous sulfate 325 mg (65 mg 325 mg PO BID 04/12/22 09/17/24 iron) tablet (FeroSul) lancets 33 gauge (TRUEplus Lancets) #100 ea 04/12/22 08/03/23 mirabegron 50 mg tablet,extended 50 mg PO BEDTIME 04/12/22 09/17/24 release 24 hr (Myrbetriq) pioglitazone 45 mg tablet 45 mg PO DAILY@1900 04/12/22 09/17/24 ascorbic acid (vitamin C) 500 mg 500 mg PO BEDTIME 02/17/24 09/17/24 tablet (Vitamin C) cyanocobalamin (vitamin B-12) 1,000 mcg PO BEDTIME 02/17/24 09/17/24 1,000 mcg tablet metformin 750 mg tablet,extended 750 mg PO BIDWM@1200,1700 02/17/24 09/17/24 release 24 hr magnesium oxide 400 mg (241.3 mg 400 mg PO DAILY@1200 09/17/24 09/17/24 magnesium) tablet Previous Rx's ?Medication ?Instructions ?Recorded compression socks, medium #2 ea 02/20/25 naproxen 500 mg tablet 500 mg PO Q12H PRN pain (scale 02/20/25 score 1-3) #20 tabs lidocaine 5 % topical patch 2 patch topical DAILY #15 ea 03/11/25 prednisone 20 mg tablet 20 mg PO DAILY #6 tabs 03/11/25 Allergies Allergy/AdvReac Type Severity Reaction Status Date / Time cephalexin Allergy Intermediate Constipatio Verified 03/22/25 11:11 n oxycodone (From Percocet) AdvReac Mild VOMITING/DI Verified 03/22/25 11:11 ZZINES percocet Allergy Unknown nausea/dizz Uncoded 03/22/25 11:11 iness Review of Systems Review of Systems: Yes all other systems are reviewed and are negative PMFSH Past Medical History Attestation statement: The following information was validated with the patient. Source: old records reviewed and nursing notes reviewed Medical History Tubular adenoma of colon Neurogenic bladder Chronic anemia HTN (hypertension) Prostate cancer Hypercholesterolemia Diabetes mellitus Renal cyst Choledocholithiasis Diverticulosis Surgical History History of colonoscopy History of hernia surgery H/O prostatectomy Family History Family History Unknown Cancer Social History Social History Household Members: None Housing: Apartment Do you presently have visiting nurse or other home services: Yes (Meals on wheels) Alcohol intake: never Patient Tobacco Use Status: Never used Tobacco Smoked in Last 30 Days: No Use of substances other than those prescribed or required for medical reasons: No Advance Directives: Yes Advance Directives on File: Yes Advance Directives Date on File: 02/22/24 Do you have a plan to hurt others: No Plan service: No Current occupational status: retired Current occupation: right handed Physical Exam ED Exam Exam: Appearance: Alert.? Oriented X3.? No acute distress.? Head: Normocephalic, atraumatic, no step-offs or deformities Eyes: Pupils equal, round and reactive to light.? ENT: Pharynx normal.? Neck: Normal inspection.? Neck supple.? CVS: Normal heart rate and rhythm.? Pulses normal.? Respiratory: No respiratory distress.? Breath sounds normal.? Abdomen: Soft and nontender.? Skin: Skin warm and dry.? Normal skin color.? Normal skin turgor.? Extremities: No lower extremity edema.? No calf ttp. 5/5 strength to bilateral upper and lower extremities Back: No midline tenderness, no C-spine tenderness, full range of motion, no CVA tenderness bilaterally + lumbosacral discomfort on palpation bilaterally. and into L glute No midline pain. Positive straight leg raise bilaterally. Neuro: Oriented X 3.? No motor deficit.? No sensory deficit. CN 2-12 intact Vital Signs: Vital Signs - 24 hr 03/22/25 10:58 03/22/25 12:15 Temperature 97.1 F 98.3 F Pulse Rate 93 81 Respiratory Rate 16 16 Blood Pressure 132/61 141/63 H Pulse Oximetry 98 98 Oxygen Delivery Method Room Air Room Air BMI result Body Mass Index 26.5 Vital signs are stable Course Reevaluation(s) Reevaluation #1: There is an acute fracture of the superior left sacrum extending onto the SI joint there is a chronic moderate compression fracture of L3 Time: 13:07 Reevaluation #2: labs pending. Time: 13:07 Reevaluation #3: CBC unremarkable. Chemistry no acute findings needing intervention. Chronically elevated BUN and creatinine. UA without infection. Lumbar spine CT with acute fracture of the superior left sacrum extending to the SI joint in a chronic moderate compression fracture of L3. Time: 13:25 Additional Reevaluation(s): I did speak to patient about all the above findings. He is agreeable to transfer to [facility]. I did speak to Dr. Sloan on the trauma team at [facility] and accepts patient as a trauma consult. Patient and patient's brother healthcare proxy aware of this. Medications Administered Discontinued Medications Generic Name Dose Route Start Last Admin Trade Name Fabio PRN Reason Stop Dose Admin Gabapentin 300 mg 03/22/25 11:18 03/22/25 11:50 Gabapentin 300 Mg Capsule PO 03/22/25 11:19 300 mg ONCE ONE Administration Lidocaine 1 patch 03/22/25 12:02 03/22/25 12:58 Lidocaine 4 % Patch Adh..Patch TRANSDERMA 03/22/25 12:03 Not Given ONCE ONE Protocol Morphine Sulfate 4 mg 03/22/25 12:46 03/22/25 12:57 Morphine Sulfate 4 Mg/Ml Cartridge IVPUSH 03/22/25 12:47 4 mg ONCE ONE Administration Protocol Medical Decision Making Medical Decision Making [facility] Narrative: 1222 This is an 89-year-old male who presents to the emergency department with low back pain with radiation to lower extremities and foul smelling urine. Physical exam with lumbosacral tenderness to palpation bilaterally and into L glute Positive straight leg raise bilaterally. No saddle anesthesias. Patient able to ambulate however slightly uncomfortable. No midline pain History and physical exam consistent with an L5-S1 radiculopathy. I do not suspect cord compression, cauda equina or epidural abscess. Patient's foul-smelling urine will rule out UTI. No signs of pyelonephritis. I do not suspect that this is kidney stone. Will rule out metabolic derangements. Will rule out fx/dislocations to hip/ pevlis Plan labs, imaging Differential Diagnosis Differential Diagnoses: The differential diagnosis associated with the presentation includes (History and physical exam consistent with an L5-S1 radiculopathy. I do not suspect cord compression, cauda equina or epidural abscess. Patient's foul-smelling urine will rule out UTI. No signs of pyelonephritis. I do not suspect that this is kidney stone. Will rule out metabolic derangements.) Admission/Observation Consideration of admission/observation: Escalation of care including admission/observation considered (unlikely ) Lab Data [facility] Lab Attestation statement: I reviewed the patient's lab results. 03/22/25 13:05 03/22/25 13:05 Labs: Lab Results 03/22/25 03/22/25 Range/Units 13:05 13:13 WBC 8.4 (4.8-10.8) X10*3/uL RBC 3.68 L (4.60-5.80) X10*6/uL Hgb 10.2 L (14.0-18.0) g/dl Hct 30.1 L (42.0-52.0) % MCV 81.8 (80.0-98.0) fL MCH 27.7 (27.0-33.0) pg MCHC 33.9 (31.0-36.0) g/dl RDW 17.0 H (11.0-16.0) % Plt Count 264 (160-400) X10*3/uL MPV 9.5 (9.4-12.4) fL Immature Gran % (Auto) 0.7 H (0.0-0.4) % Neut % (Auto) 81.7 H (45-73) % Lymph % (Auto) 5.7 L (20-40) % [place] % (Auto) 10.4 (2-11) % Eos % (Auto) 1.4 (0-4) % Baso % (Auto) 0.1 (0-2) % Lymph # (Auto) 0.5 L (1.2-4.9) X10*3/uL [place] # (Auto) 0.9 (0.1-1.2) X10*3/uL Eos # (Auto) 0.1 (0.0-0.4) X10*3/uL Baso # (Auto) 0.0 (0.0-0.2) X10*3/uL Abs Immat Gran (auto) 0.06 H (0.00-0.03) X10*3/uL Absolute Neuts (auto) 6.8 (2.0-8.3) x10*3/uL Absolute Nucleated RBC 0.000 (0.0-0.012) X10*3/uL Nucleated RBC % (auto) 0.0 (0.0-0.2) /100WBC Sodium 139 (135-145) mmol/L Potassium 3.8 (3.3-5.1) mmol/L Chloride 106 (96-108) mmol/L Carbon Dioxide 24 (22-29) mmol/L Anion Gap 13 (12-20) BUN 23 H (9-16) mg/dL Creatinine 1.08 (0.5-1.4) mg/dL Estim Creat Clear Calc 45.0 Estimated GFR > 60 Random Glucose 170 H (60-115) mg/dL Calcium 8.9 D (8.4-10.2) mg/dL Total Bilirubin 0.7 (0.0-1.0) mg/dL AST 15 (5-37) U/L ALT 10 (0-40) U/L Alkaline Phosphatase 111 (39-117) U/L C-Reactive Protein 2.90 H (< or = 0.50) mg/dL Total Protein 6.5 (6.5-8.0) g/dL Albumin 3.8 (3.5-5.0) g/dL Urine Color Yellow Urine Appearance Clear Urine pH >= 9.0 (5.0-9.0) Ur Specific [place] 1.010 (1.005-1.025) Urine Protein Negative (Neg-Trace) mg/dL Urine Glucose (UA) Negative (Negative) mg/dL Urine Ketones Negative (Negative) mg/dL Urine Blood Negative (Negative) Urine Nitrite Negative (Negative) Ur Leukocyte Esterase Negative (Negative) Independent Interpretation I performed an independent interpretation of an: Plain X-Ray Radiology Impression Discussion of test interpretation with radiology: I have reviewed the radiologist's reading. Critical Care Time Critical Care Time Critical Care Time: Yes Total Critical Care Time: 45 Attestation: I attest to this time spent taking care of the patient, obtaining history, physical, reviewing labs, imaging, treatment of patients condition +/- specialist/hospitalist consult +/- procedure Discharge Plan Discharge Clinical Impression: Lumbar radiculopathy, Closed sacral fracture, Fall Patient Disposition: Home, Self-Care Instructions: Lumbar Radiculopathy (ED) Additional Instructions: Take your medications as prescribed. If you were prescribed antibiotics today, it is important that you take your medication to their entirety, do not skip any doses, do not finish them early. Follow-up with your primary care provider this week. Return to the emergency department with new or worsening symptoms. Such as fevers, chills, chest pain, shortness of breath, nausea, vomiting, dizziness, headache, vision changes, lethargy In case of emergency call 911 CT/CT lumbar spine wo IV con IMPRESSION: There is an acute fracture of the superior left sacrum extending to the SI joint. There is a chronic moderate compression fracture of L3. Prescriptions: No Action prednisone 20 mg tablet 20 mg PO DAILY Qty: 6 0RF lidocaine 5 % adhesive patch,medicated 2 patch topical DAILY Qty: 15 0RF Rx Instructions: leave on most painful area for up to 12 hrs cyanocobalamin (vitamin B-12) 1,000 mcg tablet 1,000 mcg PO BEDTIME ascorbic acid (vitamin C) [Vitamin C] 500 mg tablet 500 mg PO BEDTIME metformin 750 mg tablet extended release 24 hr 750 mg PO BIDWM@1200,1700 magnesium oxide 400 mg (241.3 mg magnesium) tablet 400 mg PO DAILY@1200 naproxen 500 mg tablet 500 mg PO Q12H PRN (Reason: pain (scale score 1-3)) Qty: 20 0RF (DME) compression socks, medium Misc See Rx Instructions .Route Qty: 2 0RF Rx Instructions: As directed aspirin 81 mg tablet,delayed release (DR/EC) 81 mg PO DAILY amlodipine 5 mg tablet 5 mg PO DAILY (DME) lancets [TRUEplus Lancets] 33 gauge misc See Rx Instructions .ROUTE .MEDSUPPLY Qty: 100 Rx Instructions: As directed (DME) FreeStyle Lite Strips Strip See Rx Instructions .ROUTE .MEDSUPPLY Qty: 10 Rx Instructions: As directed atorvastatin 20 mg tablet 20 mg PO BEDTIME ferrous sulfate [FeroSul] 325 mg (65 mg iron) tablet 325 mg PO BID pioglitazone 45 mg tablet 45 mg PO DAILY@1900 Myrbetriq 50 mg tablet extended release 24 hr 50 mg PO BEDTIME Referrals: [facility] [Provider Group, Sports Medicine] Herbert Jackson MD, PhD [Physician, Neuro Spine] Stand Alone Forms: Work/School Release Print Language: Unable To Collect
--- OUTSIDE RECORDS SUMMARY | 2025-03-22 12:24 | XMS_ITS | Encounter Summary ---
Author Organization [employer] Address [address] [facility] 7[address] [place] [address] Care Team Providers Care Corporate Recycling Manager Name Role Phone Jolly London MD Primary Care Provider [phone] Javier Benton PharmD Unavailable [phone] Encounter Details Date Type Department Care Team (Late st Contact Info) Description 02/28/2023 Orders Only [facility] [address] [place] [address] [phone] Jolly London MD [address] [place] [phone] Anemia of chronic disorder (Primary Dx); Hyperkalemia [...] Description 06/10/2025 2:00 PM EST Medication Management [facility] [address] [place] [id number] Javier Benton, PharmD [address] [place], [place] [phone] Scheduled Orders Name Type Priority Associated Diagnoses [...] documented as of this encounter Care Teams Corporate Recycling Manager Relationship Specialty Start Date End Date Jolly London MD [address] [place] [address] PCP - General Family Medicine 06/29/12 Javier Benton, PharmD [address] [place] [address] Pharmacist Internal Medicine 01/14/23 documented as of this encounter
--- OUTSIDE RECORDS SUMMARY | 2025-03-22 12:24 | XMS_ITS | Encounter Summary ---
Author Organization [employer] Address [address] [facility] 7t [place] [address] Care Team Providers Care Slate Worker Name Role Phone Jolly London MD Primary Care Provider [phone] Javier Benton PharmD Unavailable [phone] Encounter Details Date Type Department Care Team ([facility] st Contact Info) Description 12/14/2023 Orders Only [facility] [address] [place], [place] [phone] Jolly London MD [address] [place], [place] [phone] Social History Tobacco Use Types Packs/Day Years [...] Description 06/10/2025 2:00 PM EST Medication Management [facility] [address] [place] [address] Javier Benton, Marc [address] [place] [address] documented as of this encounter Goals Goal Patient Goal Type Associated Problems Recent Progress Patient-Stated? Author Blood Pressure < 140/90 Blood Pressure 144/70( 025 3:24 PM EDT) No Javier Benton, PharmD documented as of this encounter Visit Diagnoses Not on filedocumented in this encounter Additional Health Concerns Assessment Noted Time PHQ-9 Depression Total Score: 0 02/15/20 23 1:30 PM EDT documented as of this encounter Care Teams Slate Worker Relationship Specialty Start Date End Date Jolly London MD [address] [place] [address] PCP - General Family Medicine 06/29/12 Javier Benton, PharmD [address] [place] [address] Pharmacist Internal Medicine 01/14/23 documented as of this encounter
--- OUTSIDE RECORDS SUMMARY | 2025-03-22 12:24 | XMS_ITS | Encounter Summary ---
Author Organization [employer] Address [address] [facility] 7t [place] [address] Care Team Providers Care Business Machines Teacher Name Role Phone Jolly London MD Primary Care Provider [phone] Javier Benton PharmD Unavailable [phone] Reason for Referral * Consultation (Routine) - Closed Specialty Diagnoses / Procedures Referred By Contac t Referred To Contact Audiology Diagnoses Sensorineural hearing loss, bilateral Jolly London MD [address] [place] [address] Phone: tel: fax: [facility] Audiology [address] Floor [place], [place] Phone: tel: fax: Referral ID Status Reason Start Date Expiration Date V isits Requested Visits Authorized [id number] Closed Specialty Services Required 10/10/2024 10/10/2025 1 1 Encounter Details Date Type Department Care Team (Late st Contact Info) Description 10/10/2024 Orders Only [facility] [address] [place], [place] [phone] Jolly London MD [address] [place], [place] [phone] Sensorineural hearing loss, bilateral (Primary Dx) Social [...] Description 06/10/2025 2:00 PM EST Medication Management [facility] [address] [place] [address] Javier Benton, PharmD [address] [place] [address] Scheduled Referrals Name Type Priority Associated Diagnoses [...] documented as of this encounter Care Teams Business Machines Teacher Relationship Specialty Start Date End Date Jolly London MD [address] [place] [address] PCP - General Family Medicine 06/29/12 Javier Benton, PharmD [address] [place] [address] Pharmacist Internal Medicine 01/14/23 documented as of this encounter
--- OUTSIDE RECORDS SUMMARY | 2025-03-22 12:24 | XMS_ITS | Encounter Summary ---
Author Organization [employer] Address [address] [facility] 7t [place] [address] Care Team Providers Care Bander And Cellophaner Machine Helper Name Role Phone Jolly London MD Primary Care Provider [phone] Javier Benton PharmD Unavailable [phone] Reason for Referral * Consultation (Routine) - Canceled Specialty Diagnoses / Procedures Referred By Contac t Referred To Contact Pharmacy Diagnoses Primary hypertension Type 2 diabetes mellitus with hyperglycemia, without long-term current use of insulin (CMS/HCC) Jolly London MD [address] [place] [address] Phone: tel: fax: Referral ID Status Reason Start Date Expiration Date V isits Requested Visits Authorized [id number] Canceled Consult and Treat 05/29/2024 05/29/2025 6 6 Encounter Details Date Type Department Care Team (Late st Contact Info) Description 05/29/2024 Orders Only [facility] [address] [place], [place] [phone] Jolly London MD [address] [place], [place] [phone] Primary hypertension (Primary Dx); Type 2 diabetes mellitus with hyperglycemia, without long-term current use of insulin (CMS/HCC) Social History Tobacco Use Types Packs/Day Years Used Date Smoking Tobacco: Former Cigarettes Passive Smoke Exposure: Never Smokeless Tobacco: Never Depression Answer Date Recorded Patient Health Questionnaire-9 Score 0 02/14/2023 Housing Stability Answer Date Recorded What is your housing situation today? I have conrad sing 10/07/[address] you li [...] Description 06/10/2025 2:00 PM EST Medication Management [facility] [address] [place] [address] Javier Benton, Marc [address] [place] [address] Scheduled Referrals Name Type Priority Associated Diagnoses Orde r Schedule Referral to Pharmacy CDTM Outpatient Referral Routine Primary hypertension Type 2 diabetes mellitus with hyperglycemia, without long-term current use of insulin ([facility]) Ordered: 05/29/2024 documented as of this encounter Goals Goal Patient Goal Type Associated Problems Recent Progress Patient-Stated? Author Blood Pressure < 140/90 Blood Pressure 144/70( 025 3:24 PM EDT) No Javier Benotn, PharmD documented as of this encounter Visit Diagnoses Diagnosis Primary hypertension- Primary Unspecified essential hypertension Type 2 diabetes mellitus with hyperglycemia, without long-term current use of insulin ([facility]) documented in this encounter Additional Health Concerns Assessment Noted Time PHQ-9 Depression Total Score: 0 02/15/20 23 1:30 PM EDT documented as of this encounter Care Teams Bander And Cellophaner Machine Helper Relationship Specialty Start Date End Date Jolly London MD [address] [place] [address] PCP - General Family Medicine 06/29/12 Javier Benton, Marc [address] [place] [address] Pharmacist Internal Medicine 01/14/23 documented as of this encounter
--- OUTSIDE RECORDS SUMMARY | 2025-03-22 12:24 | XMS_ITS | Patient Health Record ---
Author Organization [facility]illing Info Address [address] [place] [address] [place] [address] Care Team Providers Care System Development Manager Name Role Phone Nadia Black Primary Care Provider CRIS Lr Unavailable [phone] Allergies No Known Allergies Reason For Referral [...] Problem Status W/U Status Risk Notes Problem [id number] Urinary frequenc y (R35.0) Active confirmed Problem [id number] Prostate cancer (C61) Active confirmed Problem [id number] Urge incontinenc e of urine (N39.41) Active confirmed Plan Of Treatment No Information Insurance Providers Payer Name Payer Address Payer Phone Subscriber Number Group Number Insured Name Patient Relationship to Insured Coverage Start Date Coverage End Date [facility] [employer] CLAIMS [address] TELMA BOATENG [id number] Toni Leyva Self - patient is the insured 8 [facility] [address] [place], [place] [id number] Toni Leyva Self - patient is the insured 1 1 MEDICARE [place] PART B [address] [facility] SHEY TELMA YOUNG [id number] Toni Leyva Self - patient is the insured Medical (General) History Medical History History ICD Code Prostate cancer Diabetes mellitus Hypertension Hyperlipidemia Constipation UTI Hemriods Surgical History Surgery Date(Month/Year) prostate circumcision cataract surgery
--- OUTSIDE RECORDS SUMMARY | 2025-03-22 12:24 | XMS_ITS | Encounter Summary ---
Author Organization [employer] Address [address] [facility] 7t [place] [address] Care Team Providers Care Immigration Patrol Inspector Name Role Phone Jolly London MD Primary Care Provider [phone] Javier Benton PharmD Unavailable [phone] Reason for Visit * Reason Comments Med Refill Encounter Details Date Type Department Care Team ([facility] st Contact Info) Description 11/13/2023 Refill [facility] [address] [place], [place] [phone] Jolly London MD [address] [place], [place] [phone] Social History Tobacco Use Types Packs/Day Years [...] t he electric, gas, oil or water [employer] threatened to shut off services in your [...] Description 06/10/2025 2:00 PM EST Medication Management [facility] [address] [place] [address] Javier Benton PharmD [address] [place] [address] documented as of this encounter Goals Goal [...] documented as of this encounter Care Teams Immigration Patrol Inspector Relationship Specialty Start Date End Date Jolly London MD [address] [place] [address] PCP - General Family Medicine 06/29/12 Javier Benton, PharmD [address] [place] [address] Pharmacist Internal Medicine 01/14/23 documented as of this encounter
--- OUTSIDE RECORDS SUMMARY | 2025-03-22 12:24 | XMS_ITS | Encounter Summary ---
Author Organization [employer] Address [address] [facility] 7t [place] [address] Care Team Providers Care Bank Analyst Name Role Phone Jolly London MD Primary Care Provider [phone] Javier Benton PharmD Unavailable [phone] Reason for Referral * Consultation (Routine) - Authorized Specialty Diagnoses / Procedures Referred By Contac t Referred To Contact Pharmacy Diagnoses Primary hypertension Type 2 diabetes mellitus with hyperglycemia, without long-term current use of insulin (CMS/HCC) Jolly London MD [address] [place] [address] Phone: tel: fax: Referral ID Status Reason Start Date Expiration Date Visits Requested Visits Authorized [id number] Authorized Consult and Treat 02/05/2025 02/05/2026 6 6 Encounter Details Date Type Department Care Team (Late st Contact Info) Description 02/05/[address] [facility] [address] [place], [place] [phone] Jolly London MD [address] [place], [place] [phone] Primary hypertension (Primary Dx); Type 2 diabetes [...] housing situation today? I have conrad nolan 11/19/[address] you li ve. Do you have problems with any of the following? None of the above 11/19/2024 Food Insecurity Answer Date Recorded Within the past 12 months, y ou worried that your food would run out before you got money to buy more: Never True 11/19/2024 Within the past 12 months,th e food you bought just didn't last and you didn't have enough money to get more: Never True 11/2024 Transportation Answer Date Recorded In the past 12 months, has l ack of transportation kept you from medical appts, meetings, work or from getting things needed for daily living? No 11/19/2024 Utilities Answer Date Recorded In the past 12 months, has t he electric, gas, oil or water company threatened to shut off services in your home? No 11/19/2024 Depression Answer Date Recorded Patient Health Questionnaire-2 Score 0 08/13/2024 Internet Access Answer Date Recorded Internet Access Q1 Yes 11/19/2024 Internet Access Q2 Not on file 11/19/2024 Sex and Gender Information Value Date Recorded Sex Assigned at Male 05/17/2022 10:15 AM EDT Legal Sex Male 10:15 AM EDT Gender Identity Male 05/17/2022 10:15 AM EDT Sexual Orientation Straight 05/17/2022 10 :15 AM EDT documented as of this encounter Plan of Treatment Upcoming Encounters Date Type Department Care Team (Late st Contact Info) Description 06/10/2025 2:00 PM EST Medication Management [facility] [address] [place] [address] Javier Benton, PharmD [address] [place] [address] Scheduled Referrals Name Type Priority Associated Diagnoses Orde r Schedule Referral to Pharmacy CDTM Outpatient Referral Routine Primary hypertension Type 2 diabetes mellitus with hyperglycemia, without long-term current use of insulin ([facility]) Ordered: 02/05/2025 documented as of this encounter Goals Goal Patient Goal Type Associated Problems Recent Progress Patient-Stated? Author Blood Pressure < 140/90 Blood Pressure 144/70( 025 3:24 PM EDT) No Javier Benton PharmD documented as of this encounter Procedures Procedure Name Priority Date/Time Associated Diagnosis Comments XR HIP RIGHT WITH PELVIS 1 VIEW Routine 02/20/2025 10:50 AM EDT documented in this encounter Results * XR Hip right with Pelvis 1 view (02/20/2025 10:50 AM EDT) Anatomical Region Laterality Modality Lower Extremities, Hip Bilateral Radiograp hic Imaging 02/20/2025 10:5 0 AM EDT Narrative 02/20/2025 11:58 AM EDT [address] [address] XRay Report Signed Patient: Manuel Keysolito MR#: [id number] : 1935 Acct:[id number] Age/Sex: 89 / M ADM Date: 02/20/25 Loc: HO.ED Attending Dr: Ordering Physician: Moira Sanchez Date of Service: 02/20/25 Procedure(s): XR hip RT w PEL1V Accession Number(s): [id number] cc: Moira Sanchez; Jolly London MD EXAMINATION: XR HIP, RIGHT CLINICAL INFORMATION: atraumatic R buttock pain COMPARISON: None available. TECHNIQUE: Two views of the right hip. FINDINGS: Normal bone mineralization. No fracture, dislocation, or suspicious bone lesion. The pelvis appears intact. The hip joints appear intact. There are mild degenerative changes in both hip joints. 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 The sacrum appears intact. There are degenerative changes in both SI joints. No discrete soft tissue abnormalities. XR/XR hip RT w PEL1V IMPRESSION: No acute bony abnormalities. Electronically signed by: Simón Aden MD 02/20/2025 11:55 AM EDT Dictated By: Simón Aedn MD Signed By: <Electronically signed by Simón Aden MD in OV> 02/20/25 1155 DD/ 1050 TD/TT: 02/20/25 1149 Vp Platforms: Procedure Note Jacquelin, Image - 02/20/[address] [address] XRay Report Signed Patient: Theresa MeehanToni MR#: [id number] : 8Acct:[id number] Age/Sex: 89 / MADM Date: 02/20/25 Loc: HO.ED Attending Dr: Ordering Physician: Moira Sanchez Date of Service: 02/20/25 Procedure(s): XR hip RT w PEL1V Accession Number(s): [id number] cc: Moira Sanchez; Jolly London MD EXAMINATION: XR HIP, RIGHT CLINICAL INFORMATION: atraumatic R buttock pain COMPARISON: None available. TECHNIQUE: Two views of the right hip. FINDINGS: Normal bone mineralization. No fracture, dislocation, or suspicious bone lesion. The pelvis appears intact. The hip joints appear intact. There are mild degenerative changes in both hip joints. 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 The sacrum appears intact. There are degenerative changes in both SI joints. No discrete soft tissue abnormalities. XR/XR hip RT w PEL1V IMPRESSION: No acute bony abnormalities. Electronically signed by: Simón Aden MD 02/20/2025 11:55 AM EDT Dictated By: Simón Aden MD Signed By: <Electronically signed by Simón Aden MD in OV> 02/20/25 1155 DD/ 1050 TD/TT: 02/20/25 1149 Vp Platforms: [facility] External Provider IMG XR PROCEDURES Final Result documented in this encounter Visit Diagnoses Diagnosis Primary hypertension- Primary Unspecified essential hypertension Type 2 diabetes mellitus with hyperglycemia, without long-term current use of insulin ([facility]) documented in this encounter Additional Health Concerns Assessment Noted Time PHQ-9 Depression Total Score: 1 08/13/19 25 3:11 PM EST documented as of this encounter Care Teams Bank Analyst Relationship Specialty Start Date End Date Jolly London MD [address] [place] [address] PCP - General Family Medicine 06/29/12 Javier Benton PharmD [address] [place] [address] Pharmacist Internal Medicine 01/14/23 documented as of this encounter
--- OUTSIDE RECORDS SUMMARY | 2025-03-22 12:24 | XMS_ITS | Encounter Summary ---
Author Organization [employer] Address [address] [facility] 7t [place] [address] Care Team Providers Care Non Clinical Advisor Name Role Phone Jolly London MD Primary Care Provider [phone] Javier Benton PharmD Unavailable [phone] Encounter Details Date Type Department Care Team ([facility] st Contact Info) Description 03/11/2025 Results Follow-Up [facility] [address] [place] [address] Jolly London MD [address] [place] [address] CT Abdomen Pelvis w/ Contrast Social History Tobacco Use Types Packs/Day Years [...] Description 06/10/2025 2:00 PM EST Medication Management [facility] [address] [place] [address] Javier Benton, PharmD [address] [place] [address] documented as of this encounter Goals Goal [...] documented as of this encounter Care Teams Non Clinical Advisor Relationship Specialty Start Date End Date Jolly London MD [address] [place] [address] [phone] PCP - General Family Medicine 06/29/12 Javier Benton, AreliD [address] [place] [address] [phone] Pharmacist Internal Medicine 01/14/23 documented as of this encounter
--- OUTSIDE RECORDS SUMMARY | 2025-03-22 12:24 | XMS_ITS | Encounter Summary ---
Author Organization [employer] Address [address] [facility] 7t [place] [address] Care Team Providers Care Merchandise Displayer Name Role Phone Jolly London MD Primary Care Provider [phone] Javier Benton PharmD Unavailable [phone] Reason for Visit * Reason Comments Med Refill Encounter Details Date Type Department Care Team (Late Contact Info) Description 10/14/2022 Refill [facility] [address] [place], [place] [phone] Ximena Harkins FNP Social History Tobacco Use Types Packs/Day Years [...] Department Care Team (Late Contact Info) Description 06/10/2025 2:00 PM EST Medication Management [facility] [address] [place], [place] [phone] Javier Benton, PharmD [address] [place], [place] [phone] documented as of this encounter Visit Diagnoses Not on filedocumented in this encounter Care Teams Merchandise Displayer Relationship Specialty Start Date End Date Jolly Lodnon MD [address] [place], [place] [phone] PCP - General Family Medicine 06/29/12 Javier Benton, AreliD [address] [place], [place] [phone] Pharmacist Internal Medicine 01/14/23 documented as of this encounter
--- OUTSIDE RECORDS SUMMARY | 2025-03-22 12:24 | XMS_ITS | Encounter Summary ---
Author Organization [employer] Address [address] [facility] 7t [place] [address] Care Team Providers Care Bead Machine Operator Name Role Phone Jolly London MD Primary Care Provider Javier Benton PharmD Unavailable [phone] Reason for Referral * Consultation (Routine) - Closed Specialty Diagnoses / Procedures Referred By Contac t Referred To Contact Otolaryngology Diagnoses Dizziness Sensorineural hearing loss, bilateral Jolly London MD [address] [place] [address] Phone: tel: fax: [facility] [address] Phone: tel: fax: Referral ID Status Reason Start Date Expiration Date V isits Requested Visits Authorized [id number] Closed Specialty Services Required 10/15/2024 10/15/2025 1 1 Encounter Details Date Type Department Care Team (Late st Contact Info) Description 10/10/2024 Orders Only [facility] [address] [place], [place] [phone] Jolly London MD [address] [place], [place] [phone] Dizziness (Primary Dx); Sensorineural hearing loss, bilateral [...] Description 06/10/2025 2:00 PM EST Medication Management [facility] [address] [place] [address] Javier Benton, PharmD [address] [place] [address] Pending Results Name Type Priority Associated Diagnoses [...] documented as of this encounter Care Teams Bead Machine Operator Relationship Specialty Start Date End Date Jolly London MD [address] [place] [address] PCP - General Family Medicine 06/29/12 Javier Benton, AreliD [address] [place] [address] Pharmacist Internal Medicine 01/14/23 documented as of this encounter
--- OUTSIDE RECORDS SUMMARY | 2025-03-22 12:24 | XMS_ITS | Encounter Summary ---
Author Organization [employer] Address [address] [facility] 7t [place] [address] Care Team Providers Care Goldbeater Name Role Phone Jolly London MD Primary Care Provider [phone] Javier Benton PharmD Unavailable [phone] Reason for Referral * Consultation (Urgent) - Closed Specialty Diagnoses / Procedures Referred By Contac t Referred To Contact Diagnoses Sensorineural hearing loss, bilateral Dizziness Jolly London MD [address] [place] [address] Phone: tel: fax: Fred Mann [address] [place] [address] [address] [place], [place] [address] Phone: tel: fax: Referral ID Status Reason Start Date Expiration Date V isits Requested Visits Authorized [id number] Closed Specialty Services Required 10/10/2024 10/10/2025 1 1 Encounter Details Date Type Department Care Team (Late st Contact Info) Description 10/10/2024 Orders Only [facility] [address] [place], [place] [phone] Jolly London MD [address] [place], [place] [phone] Sensorineural hearing loss, bilateral (Primary Dx); Dizziness [...] Description 06/10/2025 2:00 PM EST Medication Management [facility] [address] [place] [address] Javier Benton, PharmD [address] [place] [address] Scheduled Referrals Name Type Priority Associated Diagnoses [...] documented as of this encounter Care Teams Goldbeater Relationship Specialty Start Date End Date Jolly London MD [address] [place] [address] PCP - General Family Medicine 06/29/12 Javier Benton, PharmD [address] [place] [address] Pharmacist Internal Medicine 01/14/23 documented as of this encounter
--- OUTSIDE RECORDS SUMMARY | 2025-03-22 12:24 | XMS_ITS | Encounter Summary ---
Author Organization [employer] Address [address] [facility] 7t [place] [address] Care Team Providers Care Public Relations Director Name Role Phone Jolly London MD Primary Care Provider [phone] Javier Benton PharmD Unavailable [phone] Encounter Details Date Type Department Care Team ([facility] st Contact Info) Description 03/07/2024 Orders Only [facility] [address] [place], [place] [phone] Jolly London MD [address] [place], [place] [phone] Social History Tobacco Use Types Packs/Day Years [...] Description 06/10/2025 2:00 PM EST Medication Management [facility] [address] [place] [address] Javier Benton, Marc [address] [place] [address] documented as of this encounter Goals Goal [...] documented as of this encounter Care Teams Public Relations Director Relationship Specialty Start Date End Date Jolly London MD [address] [place] [address] PCP - General Family Medicine 06/29/12 Javier Benton, PharmD [address] [place] [address] Pharmacist Internal Medicine 01/14/23 documented as of this encounter
--- OUTSIDE RECORDS SUMMARY | 2025-03-22 12:24 | XMS_ITS | Encounter Summary ---
Author Organization [employer] Address [address] [facility] 7t [place] [address] Care Team Providers Care Range Aide Name Role Phone Jolly London MD Primary Care Provider Javier Benton PharmD Unavailable Reason for Visit * Reason Comments Med Refill Encounter Details Date Type Department Care Team ([facility] st Contact Info) Description 03/11/[address] [facility] [address] [place], [place] [phone] Jolly London MD [address] [place], [place] [phone] Helicobacter pylori gastrointestinal tract infection Social History Tobacco Use Types Packs/Day Years Used Date Smoking Tobacco: Never Passive Smoke Exposure: Never Smokeless Tobacco: Never Depression Answer Date Recorded Patient Health Questionnaire-9 Score 0 02/14/2023 Housing Stability Answer Date Recorded What is your housing situation today? I have conrad ovidio 10/07/[address] you li [...] Description 06/10/2025 2:00 PM EST Medication Management [facility] [address] [place], [place] [phone] Javier Benton PharmD [address] [place] [address] documented as of this encounter Goals Goal [...] documented as of this encounter Care Teams Range Aide Relationship Specialty Start Date End Date Jolly London MD [address] [place] [address] PCP - General Family Medicine 06/29/12 Javier Benton PharmD [address] [place] [phone] Pharmacist Internal Medicine 01/14/23 documented as of this encounter
--- OUTSIDE RECORDS SUMMARY | 2025-03-22 12:25 | XMS_ITS | Clinical Summary ---
Author Organization [facility] Address [address] [place] [address] [address] [place] [address] Care Team Providers Care Glassware Maker Demonstrator Name Role Phone Jolly London MD Primary Care Provider [phone] Javier Benton PharmD Unavailable [phone] Allergies Active Allergy Reactions Criticality Noted Date Comments Cephalexin Other Medium 11/19/2022 Abdominal pain and constipation. Seen in ED. He tolerated cefuroxime Oxycodone Dizziness Low 05/24/2013 Other reaction(s): VOMITING/DIZZINES Oxycodone-Acetaminophen Dizziness Low 04/12/2022 Pt reported vomiting and dizziness. Other reaction(s): nausea/dizziness Medications mirabegron ER (Myrbetriq) 50 MG 24 hr tablet Take 1 tablet by mouth 1 (one) time each day. 2 Active Blood Pressure kit Active COVID-19 At-Home Test kitIndications:At increased risk of exposure to COVID-19 virus 1 each by In Vitro route 1 (one) time if needed (symptoms of COVID or exposure) for up to 1 dose. 2 kit 1 2 Active Blood Glucose Monitoring Suppl (FreeStyle glucose monitoring) kit TEST BLOOD SUGAR 3 TIMES EVERY DAY 1 each 3 Active ammonium lactate (Lac-Hydrin) 12 % cream Apply topically if needed for dry skin. 385 g 3 3 Active benzonatate (Tessalon) 200 MG capsule Take 1 capsule (200 mg) by mouth if needed in the morning, at noon, and at bedtime for cough. Do not crush or chew. 60 capsule 1 4 Active FreeStyle lancets 1 each by Other route before breakfast, before lunch, and before evening meal. TEST BLOOD SUGAR 3 TIMES A DAY 100 each 11 4 Active amLODIPine (Norvasc) 5 MG tabletIndications :Primary hypertension TAKE 1 TABLET BY MOUTH EVERY MORNING 90 tablet 3 5 Active cyanocobalamin (Vitamin B-12) 1000 MCG tablet TAKE 1 TABLET BY MOUTH AT BEDTIME 90 tablet 3 5 Active metFORMIN XR (Glucophage-XR) 750 MG 24 hr tablet TAKE 1 TABLET BY MOUTH TWICE DAILY AT NOON AND IN THE EVENING WITH MEALS. DO NOT BREAK, CRUSH, DISSOLVE OR CHEW 180 tablet 3 5 Active Alcohol Swabs (Alcohol Prep) 70 % padsIndications:T ype 2 diabetes mellitus with hyperglycemia, without long-term current use of insulin ([facility]) USE TO CHECK BLOOD SUGAR DIRECTED 100 each 5 5 Active furosemide (Lasix) 20 MG tablet Take 1 tablet (20 mg) by mouth Once per day. 90 tablet 3 5 10/11/19 26 Active FREESTYLE LITE test stripIndications: Type 2 diabetes mellitus with hyperglycemia, without long-term current use of insulin ([facility]) USE DIRECTED TO TEST BLOOD SUGAR THREE TIMES DAILY 100 strip 5 5 Active pioglitazone (Actos) 45 MG tablet TAKE 1 TABLET BY MOUTH EVERY EVENING 90 tablet 3 5 Active Ascorbic Acid (vitamin C) 500 MG tablet TAKE 1 TABLET BY MOUTH AT BEDTIME 90 tablet 3 5 Active Aspirin Low Dose 81 MG EC tablet TAKE 1 TABLET BY MOUTH EVERY MORNING 90 tablet 3 5 Active atorvastatin (Lipitor) 40 MG tabletIndications :Dyslipidemia TAKE 1 TABLET BY MOUTH AT BEDTIME 90 tablet 5 Active Ferrous Sulfate (iron) 325 (65 Fe) MG tablet TAKE 1 TABLET BY MOUTH TWICE DAILY IN THE MORNING AND AT BEDTIME 180 tablet 5 Active magnesium oxide (Mag-Ox) 400 MG tablet TAKE 1 TABLET BY MOUTH EVERYDAY AT NOON 90 tablet 5 Active lidocaine (Lidoderm) 5 % patchIndications: Right buttock pain Apply 1 patch topically Once per day. Remove & discard patch within 12 hours or as directed by . 30 patch 11 5 Active Diclofenac Sodium 1 % gel Apply to affected area once or twice daily as needed for pain 150 g 11 5 Active acetaminophen (Tylenol Extra Strength) 500 MG tablet Take one or two tablets by mouth every 8 hours as needed for pain or fever. Maximum 6 tablets per day. 90 tablet 1 5 Active Active Problems Problem Noted Date Diagnosed Date Fracture of removable partial denture 12/06/2024 Tinnitus of both ears 11/19/2024 Assessment & Plan (11/19/2024 3:49 PM EDT): - likely Meniere's disease - symptoms improved with furosemide Dizziness 09/28/2024 Assessment & Plan (03/04/2025 8:41 AM EDT): - likely Meniere's disease - symptoms improved with furosemide - continue current treatment plan Assessment & Plan (11/19/2024 3:48 PM EDT): - likely Meniere's disease - symptoms improved with furosemide - continue current treatment plan Assessment & Plan (09/28/2024 9:47 AM EDT): - patient insists on prescription for cortisporin gtt - advised to contact us if his symptoms do not improve TIA (transient ischemic attack) 09/28/2024 Assessment & Plan (03/04/2025 8:41 AM EDT): - Seen in [facility] on 09/17/24, questionable - patient claims that he did not have vision problem. However, he is high-risk for CVA / TIA - continue ASA - continue optimizing chronic disease management - continue working on lifestyle modificaitons Assessment & Plan (11/19/2024 4:11 PM EDT): - Seen in [facility] on 09/17/24, questionable - patient claims that he did not have vision problem. However, he is high-risk for CVA / TIA - continue ASA - continue optimizing chronic disease management - continue working on lifestyle modificaitons Assessment & Plan (09/28/2024 9:47 AM EDT): - Seen in [facility] on 09/17/24, questionable - patient claims [...] delivery service. Patient tried once, but preferred [place] foods to typical [place] foods. Patient is willing to try again. - currently going to [employer] for lunch as a part of service from [facility]. - discussed with patient's animal care service worker about getting a TABLET TESTER who can cook for him and eat with him. Obesity 02/21/2023 Recurrent UTI 11/09/2022 Assessment & Plan (03/01/2025 11:06 PM EDT): -Most recent in Feb 2024, [...] is having mild symptoms Assessment & Plan (08/13/2024 3:52 PM EST): [...] of chronic disease 11/13/2012 Assessment & Plan (11/19/2024 4:09 PM EDT): - Normocytic anemia. Elevated ferritin level. - Seen by tobacco cutter in July 2023 - monitor - Continue current iron supplementation Assessment & Plan (08/13/2024 3:53 PM EST): - Normocytic anemia. Elevated ferritin level. - Seen by tobacco cutter in July 2023 - monitor - Continue current iron supplementation Assessment & Plan (04/26/2024 10:33 AM EDT): - Normocytic anemia. Elevated ferritin level. - Seen by tobacco cutter in July 2023 - monitor - Continue current iron supplementation Assessment & Plan (03/07/2024 3:45 PM EDT): - Normocytic anemia. Elevated ferritin level. - Seen by tobacco cutter in July 2023 - monitor - Continue current iron supplementation Assessment & Plan (01/25/2024 5:10 PM EDT): - Normocytic anemia. Elevated ferritin level. - Seen by tobacco cutter in July 2023 - monitor - Continue current iron supplementation Assessment & Plan (10/18/2023 1:00 PM EDT): - Normocytic anemia. Elevated ferritin level. - Seen by tobacco cutter in July 2023 - monitor - Continue current iron supplementation Assessment & Plan (06/22/2023 5:49 AM EST): - Normocytic anemia. Elevated ferritin. - Seen by tobacco cutter on 05/13/23 - monitor - Continue current [...] mellitus, type 2 11/13/2012 Assessment & Plan (03/01/2025 11:06 PM EDT): - A1c 7.7% on 02/25/25 - A1c 7.8% on 11/19/24 - A1C 7.7% on 09/27/24 -HgbA1C 7.9% [...] 47 -Last dental exam: Assessment & Plan (11/19/2024 4:10 PM EDT): - A1c 7.8% on 11/19/24 - A1C 7.7% on 09/27/24 -HgbA1C 7.9% [...] 47 -Last dental exam: Assessment & Plan (09/28/2024 8:27 AM EDT): [...] healthier foods. Will refer him to [facility] department. Will write a letter to the [...] healthier foods. Will refer him to [facility] department. Will write a letter to the [...] 3 months Dyslipidemia 11/13/2012 Assessment & Plan (11/19/2024 4:09 PM EDT): -Current medication: atorvastatin 40 mg at bedtime -Last lipid profile: 01/25/24 -Continue current medication and lifestyle modification effort Assessment & Plan (09/28/2024 9:42 AM EDT): [...] effort Neurogenic bladder 11/13/2012 Assessment & Plan (03/04/2025 8:38 AM EDT): - Following with Urologist, [facility], last seen in November 2024 -Discontinued Imipramine. -Continue mirabegron -Recently given a sample of Gemtesa -Treatment Hx: Previously on oxybutynin 5 mg which was changed to mirabegron when he went to [place] and was seen by an urologist there. Previously on imipramine, which was recommended to discontinue due to anticholinergic effect. Assessment & Plan (11/19/2024 4:11 PM EDT): - Following with Urologist, [facility], last seen in Apr 2024 -Discontinued Imipramine. -Continue mirabegron -Recently given a sample of Gemtesa -Treatment Hx: Previously on oxybutynin 5 mg which was changed to mirabegron when he went to [place] and was seen by an urologist there. Previously on imipramine, which was recommended to discontinue due to anticholinergic effect. Assessment & Plan (08/13/2024 3:52 PM EST): - [facility], last seen in Apr 2024 -Discontinued Imipramine. -Continue mirabegron -Recently given a sample of Gemtesa -Treatment Hx: Previously on oxybutynin 5 mg which was changed to mirabegron when he went to [place] and was seen by an urologist there. Previously on imipramine, which was recommended to discontinue due to anticholinergic effect. Assessment & Plan (04/29/2024 6:49 AM EDT): - [facility] last [facility] in Apr [facility] -Discontinued Imipramine. -Continue mirabegron -Recently given a sample of Gemtesa -Treatment Hx: Previously on oxybutynin 5 mg which was changed to mirabegron when he went to [place] and was seen by an urologist there. Previously on imipramine, which was recommended to discontinue due to anticholinergic effect. Assessment & Plan (01/25/2024 5:07 PM EDT): - [facility], last seen in November 2023 -Discontinued Imipramine. -Continue mirabegron -Treatment Hx: Previously on oxybutynin 5 mg which was changed to mirabegron when he went to [place] and was seen by an urologist there. Previously on imipramine, which was recommended to discontinue due to anticholinergic effect. Assessment & Plan (10/18/2023 1:22 PM EDT): - [facility], last seen in July 2023 -Discontinue Imipramine. -Continue mirabegron -Treatment Hx: Previously on oxybutynin 5 mg which was changed to mirabegron when he went to [place] and was seen by an urologist there. Previously on imipramine, which was recommended to discontinue due to anticholinergic effect. Assessment & Plan (06/22/2023 5:42 AM EST): - Following with Urologist, [facility], last seen on 02/11/2023 -Continue Imipramine. -Continue mirabegron -Treatment Hx: Previously on oxybutynin 5 mg which was changed to mirabegron when he went to [place] and was seen by an urologist there. Assessment & Plan (02/21/2023 5:12 AM EDT): - Following with Urologist, [facility], last seen on 02/11/2023 -Continue Imipramine. -Continue myrbetriq. -Treatment Hx: Previously on oxybutynin 5 mg which was changed to Mybetriq when he went to [place] and was seen by an urologist there. Assessment & Plan (11/09/2022 5:06 PM EDT): Following with Urologist, last seen on 10/2022, requested mote of the visit and it is pending at this time -Continue Imipramine. -Continue myrbetriq. -Treatment Hx: Previously on oxybutynin 5 mg which was changed to Mybetriq when he went to [place] and was seen by an urologist. Assessment & Plan (07/04/2022 5:07 AM EST): -Continue Imipramine. -Continue myrbetriq. -Treatment Hx: Previously on oxybutynin 5 mg which was changed to Mybetriq when he went to [place] and was seen by an urologist. Hypertension 11/13/2012 Assessment & Plan (03/04/2025 8:37 AM EDT): -Goal BP < 130/80 per ACC/AHA (Tx threshold 130/80) -Elevated BP today, but he is somewhat in excited state when explaining about his recent ED visit; normal BP at last CD visit -Risk factors: Male, BMI, DM, -Co-managed [...] hyperkalemia in February 2024. Assessment & Plan (11/19/2024 4:11 PM EDT): -Goal BP < 140/90 per [...] hyperkalemia in February 2024. Assessment & Plan (09/28/2024 8:26 AM EDT): [...] UTI Prostate cancer 11/13/2012 Assessment & Plan (03/04/2025 8:38 AM EDT): Dx in 1992. s/p prostatectomy in 1992 in [place]. [facility]ist: [facility], last seen in November 2024 Hx hypogonadism, neurogenic bladder, and recurrent [...] per urologist and oncologist. Assessment & Plan (11/19/2024 4:10 PM EDT): Dx in 1992. s/p prostatectomy in 1992 in [place]. [facility]rologist: [facility], last seen in [...] per urologist and oncologist. Assessment & Plan (09/28/2024 9:44 AM EDT): Dx in 1992. [place] 1992 [place] Urologist: [facility], last seen in Apr 2024 [...] in 1992. [place]/p [place] 1992 [place] Urologist: [facility], last seen in Apr 2024 [...] in 1992. [place]/p [place] 1992 [place] Urologist: [facility], last seen in Apr 2024 [...] in 1992. [place] 1992 [place] Urologist: [facility], last seen in November 2023 [...] in 1992. s/p [place]ctomy in 1992 [place] Urologist: [facility], last seen in November 2023 Hx [...] WRITTEN ON 07/04/2022 5:25 AM BY JOLLY LONDON MD Dx in 1992. s/p prostatectomy in 1992 in [place] Urologist: Dr. Brush, last seen in Apr 2020 Hx hypogonadism, neurogenic bladder, and recurrent UTI last UTI in Jun 2015. last PSA 0.28 on 03/09/22 No sign of recurrence per specialist. Continue current treatment plan. Assessment & Plan (01/25/2024 5:34 AM EDT): >>ASSESSMENT AND PLAN FOR HISTORY OF PROSTATE CANCER WRITTEN ON 11/09/2022 5:07 PM BY JASON Bocanegra in 1992. s/p prostatectomy in 1992 in [place]. Urologist: Dr. Brush, last seen in 10/2022, [...] WRITTEN ON 02/21/2023 5:20 AM BY JOLLY LONDON MD Dx in 1992. s/p prostatectomy in 1992 [place] Urologist: [facility], last seen in January 2023 Hx hypogonadism, neurogenic bladder, and recurrent UTI last UTI in 10/2022 last PSA 0.7 in 10/2022, increased from previous PSA Abd/pelvis CT recently showed no sign of recurrence per specialist Continue current treatment plan. Assessment & Plan (10/18/2023 1:23 PM EDT): Dx in 1992. s/p prostatectomy in 1992 [place] [facility], last seen in May 2023 Hx [...] EDT): >>ASSESSMENT AND PLAN FOR PROSTATE CANCER ([facility]) WRITTEN ON 06/22/2023 12:44 PM BY JOLLY LONDON MD Dx in 1992. s/p prostatectomy in 1992 in [place] Urologist: [facility], last seen in May 2023 Hx [...] appt with urologist and radiation oncologist Called [facility] and requested an assistance in rescheduling Bone Scan appt and giving instruction in Fijian. The intelligence officer has kindly agreed to do so. >>ASSESSMENT AND PLAN FOR HISTORY OF PROSTATE CANCER WRITTEN ON 06/22/2023 12:44 PM BY JOLLY LONDON MD Dx in 1992. s/p prostatectomy in 1992 [place] [facility], last seen in May 2023 Hx [...] appt with urologist and radiation oncologist Called [facility] and requested an assistance in rescheduling Bone Scan appt and giving instruction in Fijian. The intelligence officer has kindly agreed to do so. Resolved Problems Problem Noted Date Diagnosed Date Resolved Date Poor appetite 04/29/2024 09/28/2024 Assessment & Plan (04/29/2024 7:01 AM EDT): - patient may benefit from more socialization - continue periodic assessment for depression / dementia Gastroesophageal reflux disease 01/07/2016 07/04/2022 Helicobacter pylori gastroin testinal tract infection 01/07/2016 01/25/2024 Encounters Date Type Department Care Team Description 03/11/2025 Results Follow-Up [address] [address] Abdomen Pelvis w/ Contrast 03/11/2025 Orders Only GENERIC EXTERNAL DATA DEPARTMENT Provider, Generic External Data 02/25/2025 3:00 PM EDT Office Visit [address] [address] Jolly London MD Primary hypertension (Primary Dx); Type 2 diabetes mellitus with hyperglycemia, without long-term current use of insulin (CMS/HCC); Prostate cancer (CMS/HCC); Right buttock pain; Recurrent UTI; Dysuria; Neurogenic bladder; Dizziness; TIA (transient ischemic attack) 02/25/2025 Travel 02/22/2025 Telephone [facility] [place] [address] Jolly London MD chart prep 02/19/2025 Refill [facility] [place] [address] Jolly London MD Dyslipidemia 02/15/2025 Patient Outreach [address] [address] Jolly London MD Pre-visit Planning (SDOH screening was completed on 11/19/2024) 02/05/2025 Orders Only [address] [place] [address] Jolly London MD Primary hypertension (Primary Dx); Type 2 diabetes mellitus with hyperglycemia, without long-term current use of insulin ([facility]) 02/05/2025 Telephone [facility] [address] [place] [id number] Jolly London MD 01/02/2025 Travel 01/01/[address] [address] Jolly London MD [place] recall 12/25/2024 Refill [facility] [address] [place], [place] [phone] Jolly London MD from Last 3 Months Immunizations Immunization Administration Dates Next Due Hep B, adult [...] housing situation today? I have conradadelfo nolan 11/19/[address] you [...] Sign Reading Time Taken Comments Blood Pressure 144/70 02/25/2025 3:24 PM EDT Pulse 95 02/25/2025 3:24 PM EDT Temperature 36.2 C (97.1 F) 02/25/2025 3:24 PM EDT Respiratory Rate 21 02/25/2025 3:24 PM EDT Oxygen Saturation 98% 02/25/2025 3:24 PM EDT Inhaled Oxygen Concentration - - Weight 77 kg (169 lb 12.8 oz) 02/25/2025 3:24 PM EDT Height 154.9 cm (5' 1 ) 02/25/2025 3:24 PM EDT Body Mass Index 32.08 02/25/2025 3:24 PM EDT Plan of Treatment Upcoming Encounters Date Type Department Care Team (Late st Contact Info) Description 06/10/2025 2:00 PM EST Medication Management [facility] [address] [place], [place] [phone] Javier Benton, PharmD [address] [place] [address] Health Maintenance Due Date Last Done Comments Dental Prophylaxis 1935 Dental X-Ray: Bitewings 1935 Dental Oral Exam 03/06/2025 09/05/2024 COVID-19 Vaccine ( season) 2025 04/16/2024, 06/23/2023, 07/06/2022, Additional history exists Influenza Vaccine (#1) 2025 , 06/23/2023, 06/29/2022, Additional history exists Alcohol/Substance Use Screening 04/26/2025 04/26/2024 Diabetes: Foot Exam 04/26/2025 04/26/2024, 04/26/2024, 04/26/2024, Additional history exists Diabetes: Hemoglobin A1C 05/28/2025 025, 11/19/2024, 09/27/2024, Additional history exists Depression Screening 08/13/2025 08/13/2024, 08/13/19 25 Lipid Panel 09/17/2025 09/17/2024, 07/, 02/22/2023, Additional history exists SDOH Screening 11/19/2025 11/19/2024 Eye Exam 12/07/2025 12/08/2023 Tobacco Screening 02/25/2026 02/25/2025 Diabetes: Urine Protein Screening 02/27/2026 02/27/2025, 01/25/2024, 02/14/2023, Additional history exists Dental X-Ray: Full Mouth 09/06/2027 09/05/2024 DTaP/Tdap/Td Vaccines (3 - Td or Tdap) 08/17/2033 08/17/2023, 11/13/2012, 10/24/2003 Hepatitis B Vaccines Completed 06/18/2014, 04/14/2011, 02/09/2011 Pneumococcal Vaccine: 50+ Years Completed 10/28/2014, 11/22/2006, 05/11/2000 Zoster Vaccines Completed 01/07/2023, 03/18, 10/28/2014 RSV Patients and Patients Aged 60 years or older Completed 08/17/2023 HIB Vaccines Aged Out No longer eligi [...] patient's age to complete this topic Meningococcal B Vaccine Aged Out No l onger eligible based on patient's age to complete [...] 025 3:24 PM EDT) No Javier Benton, AreliD Procedures Procedure Name Priority Date/Time Associated Diagnosis Comments CT ABDOMEN PELVIS W CONTRAST Routine 03/11/2025 3:43 PM EDT URINALYSIS WITH REFLEX MICROSCOPIC Routine 03/11/2025 3:23 PM EDT ALBUMIN, RANDOM URINE W/CREATININE Routine 02/27/2025 2:39 PM EDT Type 2 diabetes mellitus with hyperglycemia, without long-term current use of insulin ([facility]) POCT GLYCOSYLATED HEMOGLOBIN (HGB A1C) Routine 02/25/2025 3:17 PM EDT Type 2 diabetes mellitus with hyperglycemia, without long-term current use of insulin ([facility]) POCT GLUCOSE Routine 02/25/2025 3:16 PM EDT Type 2 diabetes mellitus with hyperglycemia, without long-term current use of insulin ([facility]) XR HIP RIGHT WITH PELVIS 1 VIEW Routine 02/20/2025 10:50 AM EDT LIPID PANEL, STANDARD Routine 09/17/2024 1:26 PM EST PANORAMIC RADIOGRAPHIC IMAGE Routine 09/05/2024 1:30 PM EST PERIODIC ORAL EVALUATION - ESTABLISHED PATIENT Routine 09/05/2024 1:30 PM EST HM DIABETES EYE EXAM Routine 12/08/2023 from Last 3 Months or Most Recently Relevant to Health Maintenance Results * CT Abdomen Pelvis w/ Contrast (03/11/2025 3:43 PM EDT) Anatomical Region Laterality Modality Body, Pelvis, Abdomen Computed T omography 03/11/2025 3:43 PM EDT Narrative 03/11/2025 4:40 PM EDT [place] [address] CT Scan Report Signed Patient: Toni Keys MR#: [id number] : 1935 Acct:[id number] Age/Sex: 89 / M ADM Date: 03/11/25 Loc: HO.ED Attending Dr: Ordering Physician: Kira Lowe NP Date of Service: 03/11/25 Procedure(s): CT abdomen pelvis w IV con Accession Number(s): [id number] cc: Jolly London MD; Kira Lowe NP Report Number: [id number]: Total DLP = 528.00 mGy-cm EXAMINATION: CT ABDOMEN AND PELVIS WITH CONTRAST CLINICAL INFORMATION: Low back pain, black stools, prostate cancer COMPARISON: February 17, 2024 TECHNIQUE: Multidetector volumetric images were obtained from the superior aspect of the liver through the pubic symphysis following administration 85 mL of Omnipaque 350 intravenous contrast. Sagittal and coronal reformatted images were obtained on the technologist's workstation. Oral contrast: No This CT examination was performed using dose optimization techniques as appropriate, variously including the following: *Automated exposure control *Adjustment of mA and/or kV according to patient size (this includes techniques or standardized protocols for targeted exams where dose is matched to indication/reason for exam; i.e. extremities or head) *Use of iterative reconstruction technique DLP: 528 mGY*cm FINDINGS: LUNG BASES: Dependent atelectasis is increased from the prior. LIVER, GALLBLADDER, AND BILIARY TREE: The liver is normal in size, shape, and attenuation. No focal hepatic lesion or biliary ductal dilatation is present. Color surgically absent. There are clips in the gallbladder fossa. PANCREAS: Unremarkable. SPLEEN: Unremarkable. ADRENAL GLANDS: Unremarkable. KIDNEYS AND URETERS: Simple renal cysts are again noted in the left kidney. Chronic mild hydronephrosis is stable. Dilation of the proximal ureters is also stable.. No stones are identified. BLADDER: Unremarkable. GASTROINTESTINAL TRACT: Extensive diverticulosis in the descending and sigmoid colon is again noted. There are also scattered pseudodiverticula in the right and transverse colon. No wall thickening or adjacent fat stranding is identified. The appendix is thin-walled and gas-filled. ABDOMINAL WALL: Again noted is well-healed surgical scar extending from the umbilicus to the pubic symphysis. LYMPH NODES: Normal. VASCULAR: Moderately calcified. PELVIC VISCERA: Penile prosthesis again noted. Multiple surgical clips are placed from prostatectomy. OSSEOUS STRUCTURES: Stable moderate compression fracture of L3 is again noted. CT/CT abdomen pelvis w IV con IMPRESSION: Extensive diverticulosis without evidence of diverticulitis. Stable L3 compression fracture, moderate. Stable mild hydronephrosis and hydroureter through the mid ureter. Fleischner guidelines were followed. Electronically signed by: Maxim Ellis MD 03/11/2025 04:37 PM EDT Dictated By: Maxim Ellis MD Signed By: <Electronically signed by Maxim Ellis MD in OV> 03/11/25 1637 DD/ 1543 TD/TT: 03/11/25 1615 Ecology Teacher: Procedure Note Donamadater, Image - 03/11/[address] [address] CT Scan Report Signed Patient: Toni Keys MR#: [id number] : 8Acct:[id number] Age/Sex: 89 / MADM Date: 03/11/25 Loc: HO.ED Attending Dr: Ordering Physician: Kira Lowe NP Date of Service: 03/11/25 Procedure(s): CT abdomen pelvis w IV con Accession Number(s): [id number] cc: Jolly London MD; Kira Lowe NP Report Number: [id number]: Total DLP = 528.00 mGy-cm EXAMINATION: CT ABDOMEN AND PELVIS WITH CONTRAST CLINICAL INFORMATION: Low back pain, black stools, prostate cancer COMPARISON: February 17, 2024 TECHNIQUE: Multidetector volumetric images were obtained from the superior aspect of the liver through the pubic symphysis following administration 85 mL of Omnipaque 350 intravenous contrast. Sagittal and coronal reformatted images were obtained on the technologist's workstation. Oral contrast: No This CT examination was performed using dose optimization techniques as appropriate, variously including the following: *Automated exposure control *Adjustment of mA and/or kV according to patient size (this includes techniques or standardized protocols for targeted exams where dose is matched to indication/reason for exam; i.e. extremities or head) *Use of iterative reconstruction technique DLP: 528 mGY*cm FINDINGS: LUNG BASES: Dependent atelectasis is increased from the prior. LIVER, GALLBLADDER, AND BILIARY TREE: The liver is normal in size, shape, and attenuation. No focal hepatic lesion or biliary ductal dilatation is present. Color surgically absent. There are clips in the gallbladder fossa. PANCREAS: Unremarkable. SPLEEN: Unremarkable. ADRENAL GLANDS: Unremarkable. KIDNEYS AND URETERS: Simple renal cysts are again noted in the left kidney. Chronic mild hydronephrosis is stable. Dilation of the proximal ureters is also stable.. No stones are identified. BLADDER: Unremarkable. GASTROINTESTINAL TRACT: Extensive diverticulosis in the descending and sigmoid colon is again noted. There are also scattered pseudodiverticula in the right and transverse colon. No wall thickening or adjacent fat stranding is identified. The appendix is thin-walled and gas-filled. ABDOMINAL WALL: Again noted is well-healed surgical scar extending from the umbilicus to the pubic symphysis. LYMPH NODES: Normal. VASCULAR: Moderately calcified. PELVIC VISCERA: Penile prosthesis again noted. Multiple surgical clips are placed from prostatectomy. OSSEOUS STRUCTURES: Stable moderate compression fracture of L3 is again noted. CT/CT abdomen pelvis w IV con IMPRESSION: Extensive diverticulosis without evidence of diverticulitis. Stable L3 compression fracture, moderate. Stable mild hydronephrosis and hydroureter through the mid ureter. Fleischner guidelines were followed. Electronically signed by: Maxim Ellis MD 03/11/2025 04:37 PM EDT Dictated By: Maxim Ellis MD Signed By: <Electronically signed by Maxim Ellis MD in OV> 03/11/25 1637 DD/ 1543 TD/TT: 03/11/25 1615 Ecology Teacher: [facility] External Provider IMG CT PROCEDURES Final Result * Urinalysis w/reflex microscopic (03/11/2025 3:23 PM EDT) Color Urine Yellow [facility] Appearance Urine Clear [facility] PH 8.5 5.0 - 9.0 [facility] Glucose Urine UA Negative Negative mg/dL [facility] Urine Blood Negative Negative [facility] Specific [place] - Urine 1.015 1.005 - 1.025 [facility] Urine Protein Negative Neg-Trace mg/dL [facility] Urine Ketones Negative Negative mg/dL [facility] Nitrite Urine Negative Negative [facility] Leukocyte Esterase Urine Negative Negative [facility] 03/11/2025 3:23 PM EDT 03/11/2025 3:30 PM EDT Narrative [facility] - 03/11/2025 3:36 PM EDT [id number], Clean Catch us Generic External Data Provider LAB URINE ORDERAB LES Final Result Performing Organization Address [facility] de Phone Number [facility] [address] [place] [phone] * Albumin, Random Urine W/Creatinine (02/27/2025 2:39 PM EDT) Creatinine, Urine 74.26 mg/dL [facility] Microalbumin Urine 7.0 mg/L [facility] Microalbum Creatinine Ratio Ur 9.4 <30 ug/mg cr [facility] Comment:Albumin/Creatinine R atio Reference Ranges: Normal: < 30 ug/mg creatinine Microalbuminuria: 30 - 300 ug/mg creatinineClinical Albuminuria: > 300 ug/mg creatinine Urine 02/27/2025 2:39 PM EDT 02/27/2025 4:36 PM EDT us Jolly London MD LAB URINE ORDERABLES Final Resul t Performing Organization Address [facility] Co de Phone Number [facility] [address] [place] [phone] * (ABNORMAL) POCT glycosylated hemoglobin (Hgb A1c) (02/25/2025 3:17 PM EDT) Hemoglobin A1C 7.7(A) 4.0 - 5.7 % QC Media Lot # [id number] Lot# Expiration Date Blood Capillary blood specimen / Unknown 02/25/2025 3:17 PM EDT us Jolly London MD POINT OF CARE TEST ENTER/EDIT OR DERABLES Final Result * (ABNORMAL) POCT glucose manually resulted (02/25/2025 3:16 PM EDT) Glucose Blood, POC 203(A) 60 - 200 mg/dL QC Media Lot # [id number] Lot# Expiration Date [id number] Blood Capillary blood specimen / Unknown 02/25/2025 3:16 PM EDT Jolly London MD POINT OF CARE TEST ENTER/EDIT OR DERABLES Final Result * XR Hip right with Pelvis 1 view (02/20/2025 10:50 AM EDT) Anatomical Region Laterality Modality Lower Extremities, Hip Bilateral Radiograp hic Imaging 02/20/2025 10:5 0 AM EDT Narrative 02/20/2025 11:58 AM EDT [address] [address] XRay Report Signed Patient: Theresa MeehanToni MR#: [id number] : 1935 Acct:[id number] Age/Sex: 89 / M ADM Date: 02/20/25 Loc: HO.ED Attending Dr: Ordering Physician: Moira Sanchez Date of Service: 02/20/25 Procedure(s): XR hip RT w PEL1V Accession Number(s): [id number] cc: Moira Sanchez; Jolly London MD EXAMINATION: [...] 02/20/25 1155 DD/ 1050 TD/TT: 02/20/25 1149 Ecology Teacher: Procedure Note Annettater, Image - 02/20/[address] [address] XRay Report Signed Patient: Theresa MeehanToni MR#: [id number] : 8Acct:[id number] Age/Sex: 89 / MADM Date: 02/20/25 Loc: HO.ED Attending Dr: Ordering Physician: Moira Sanchez Date of Service: 02/20/25 Procedure(s): XR hip RT w PEL1V Accession Number(s): [id number] cc: Moira Sanchez; Jolly London MD EXAMINATION: [...] 02/20/25 1155 DD/ 1050 TD/TT: 02/20/25 1149 Ecology Teacher: [facility] External Provider IMG XR PROCEDURES Final Result * Lipid Panel, Standard (09/17/2024 1:26 PM EST) Triglycerides 120 <150 mg/dL [facility] Comment:Desirable Triglyceri de: less than 150 mg/dLBorderline High Triglyceride 150-199 mg/dLHigh Triglyceride: 200-499 mg/dLVery High Triglyceride: greater than or equal to 5OO mg/dL Cholesterol 113 <200 mg/dL [facility] Comment:Desirable Cholestero l: less than 200 mg/dLBorderline High Cholesterol: 200-239 mg/dLHigh Cholesterol: greater than 239 mg/dL LDL Cholesterol Calculated 47 <100 mg/dL [facility] Comment:Desirable LDL: less than 100 mg/dLNear Optimal/Above Optimal LDL: 110- 129 mg/dLBorderline High LDL: 130-159 mg/dLHigh LDL: 160-189 mg/dLVery High LDL: greater than or equal to 190 mg/dL HDL Cholesterol 42 >40 mg/dL [facility] Comment:Desirable HDL: great er than 40 mg/dL Note: This HDL assay may give artificially low results in patients with liver disease. 09/17/2024 1:26 PM EST 09/17/2024 1:34 PM EST us Generic External Data Provider LAB BLOOD ORDERAB LES Final Result [facility] [address] [place], [place] [phone] * Diabetes Eye Exam (12/08/2023) Eye Exam Normal Normal 12/08/2023 Historical Provider HEALTH MAINTENANCE Final Result from Last 3 Months or Most Recently Relevant to Health Maintenance Insurance [address] [place] [id number] [facility]LY [facility] RETIREMENT OPTIONS (O D-SNP) DENTAL [facility] Care Teams Glassware Maker Demonstrator Relationship Specialty Start Date End Date Jolly London MD [address] [place] [address] PCP - General Family Medicine 06/29/12 Javier Benton, Marc [address] [place], [place] Pharmacist Internal Medicine 01/14/23
--- OUTSIDE RECORDS SUMMARY | 2025-03-22 12:25 | XMS_ITS | Encounter Summary ---
Author Organization [employer] Address [address] [facility] [address] [place] [address] Care Team Providers Care Broker In Charge Name Role Phone Jolly London MD Primary Care Provider [phone] Javier Benton PharmD Unavailable [phone] Encounter Details Date Type Department Care Team (Late st Contact Info) Description 06/07/2022 Abstract [facility] [address] [place] [phone] Jolly London MD [address] [place] [address] Social History Tobacco Use Types Packs/Day Years [...] Description 06/10/2025 2:00 PM EST Medication Management [facility] [address] [place] [phone] Javier Benton, PharmD [address] [place] [address] documented as of this encounter Visit Diagnoses Not on filedocumented in this encounter Care Teams Broker In Charge Relationship Specialty Start Date End Date Jolly London MD [address] [place] [phone] PCP - General Family Medicine 06/29/12 Javier Benton, PharmD [address] [place] [address] [place] [phone] Pharmacist Internal Medicine 01/14/23 documented as of this encounter
[2025-03-22 13:08] LABS: MANUAL DIFF FLAG NO
[2025-03-22 13:11] LABS: Hematocrit 30.1 % (42.0-52.0); Hemoglobin 10.2 g/dl (14.0-18.0); Imm Gran Abs Auto 0.06 X10*3/uL (0.00-0.03); Imm Gran Pct Auto 0.7 % (0.0-0.4); Lymphocytes Absolute Auto 0.5 X10*3/uL (1.2-4.9); Mean Corpuscular HGB Conc 33.9 g/dl (31.0-36.0); Mean Corpuscular Hemoglobin 27.7 pg (27.0-33.0); Mean Corpuscular Volume 81.8 fL (80.0-98.0); NRBC Abs Auto 0.000 X10*3/uL (0.0-0.012); NRBC Pct Auto 0.0 /100WBC (0.0-0.2); Platelet Count 264 X10*3/uL (160-400); Red Blood Count 3.68 X10*6/uL (4.60-5.80); White Blood Count 8.4 X10*3/uL (4.8-10.8)
[2025-03-22 13:23] LABS: Appearance Urine Clear; Glucose Urine UA Negative (Negative); PH >= 9.0 (5.0-9.0); Specific Gravity - Urine 1.010 (1.005-1.025)
[2025-03-22 13:26] LABS: Alanine Aminotransferase 10 U/L (0-40); Albumin Level 3.8 g/dL (3.5-5.0); Alkaline Phosphatase 111 U/L (39-117); Anion Gap 13 (12-20); Aspartate Amino Transferase 15 U/L (5-37); Blood Urea Nitrogen 23 mg/dL (9-16); Calcium 8.9 mg/dL (8.4-10.2); Carbon Dioxide 24 mmol/L (22-29); Chloride 106 mmol/L (96-108); Creatinine Clr Calc Pharmacy 45.0; Estimated Glomerular Filt Rate > 60; Potassium 3.8 mmol/L (3.3-5.1); Sodium 139 mmol/L (135-145); Total Protein 6.5 g/dL (6.5-8.0)
[2025-03-22 14:05] VITALS: BP 149/70; PULSE 85; RESP 16; TEMP 37.1; O2SAT 98
--- NOTE | 2025-03-22 14:20 | PC.NURSE ---
Per EMS, pt reports having a fall 5 days ago secondary to leg weakness related to chronic lower back pain; pt has been seen in ER for the pain which radiates down bilateral legs; pt reports difficulty ambulating related to pain and weakness both legs; pt medicated for pain with + decrease; pt has + CMS to LE but painful with movement; pt has a sacral fx extending to R SI joint and is being transferred to [facility] for care; accepted by Dr Sloan; awaiting transport
[2025-03-22 15:03] LABS: Glucose, Whole Blood 135 mg/dL (60-115)
== END 2025-03-23 06:52 | disposition home or self-care (01) ==
PROVIDERS: Physician Assistant; Emergency Provider Emergency Medicine; PCP Family Medicine
DX: S32.10XA Unspecified fracture of sacrum, initial encounter for closed fracture (principal); M54.17 Radiculopathy, lumbosacral region; I10 Essential (primary) hypertension; E11.9 Type 2 diabetes mellitus without complications; W19.XXXA Unspecified fall, initial encounter; Z91.81 History of falling; Y93.89 Activity, other specified; Y92.89 Other specified places as the place of occurrence of the external cause; Y99.8 Other external cause status
CPT/HCPCS: 36415; 71045; 72131; 80053; 81003; 82947; 85025; 85652; 86140; 99284; J2270

== ENCOUNTER → 2025-03-22 11:17 | Outpatient (BNV) | payer OTHER, SELFPAY | PROVIDERS: Emergency Provider Emergency Medicine; PCP Family Medicine; Visit Provider Radiology Diagnostic Radiology | DX: S32.110A Nondisplaced Zone I fracture of sacrum, initial encounter for closed fracture (principal); J84.89 Other specified interstitial pulmonary diseases | CPT/HCPCS: 71045; 72131 ==

== ENCOUNTER 2025-04-03 10:42 | Emergency (ER) | payer OTHER, SELFPAY ==
[2025-04-03 11:00] VITALS: BP 111/56; BP 144/60; PULSE 102; PULSE 65; RESP 15; TEMP 36.1; O2SAT 96; O2SAT 98; BMI 25.7
[2025-04-03 11:12] VITALS: BP 111/56; PULSE 65; RESP 15; TEMP 36.1; O2SAT 98
--- NOTE | 2025-04-03 11:14 | ED.GENADULT ---
HPI - General Adult General Chief complaint: Back Pain/Injury Stated complaint: LOW BACK PAIN, FALL RECENT D/C FROM REHAB Time Seen by Provider: 04/03/25 11:14 Source: patient, EMS and interpreter translator (all interactions with this patient were facilitated with an [facility] american sign language interpreter) Mode of arrival: EMS Limitations: language barrier (all interactions with this patient were facilitated with an [facility] american sign language interpreter) History of Present Illness ED Provider: Jesusita Szymanski PA-C HPI narrative: Patient is an 89 year old assigned male at with a history of prostate cancer s/p radiation therapy in 08/2024, DM, HTN, and sacral fracture on 03/23/2025 evaluated by [facility] who recommended no intervention and protected weight bearing presenting to the emergency department today with difficulty ambulating at home. Patient states that he is having trouble getting around after being discharged from the SNF. Patient denies any other complaints at this time. Related Data Home Medications ?Medication ?Instructions ?Recorded ?Confirmed amlodipine 5 mg tablet 5 mg PO DAILY 04/12/22 04/03/25 aspirin 81 mg tablet,delayed 81 mg PO DAILY 04/12/22 04/03/25 release atorvastatin 20 mg tablet 20 mg PO BEDTIME 04/12/22 04/03/25 blood sugar diagnostic (FreeStyle #10 ea 04/12/22 08/03/23 Lite Strips) ferrous sulfate 325 mg (65 mg 325 mg PO BID 04/12/22 04/03/25 iron) tablet (FeroSul) lancets 33 gauge (TRUEplus Lancets) #100 ea 04/12/22 08/03/23 pioglitazone 45 mg tablet 45 mg PO DAILY@1900 04/12/22 04/03/25 ascorbic acid (vitamin C) 500 mg 500 mg PO BEDTIME 02/17/24 04/03/25 tablet (Vitamin C) magnesium oxide 400 mg (241.3 mg 400 mg PO DAILY@1200 09/17/24 04/03/25 magnesium) tablet acetaminophen 500 mg tablet 500 - 1,000 mg PO Q8H PRN fever 04/03/25 04/03/25 cyanocobalamin (vitamin B-12) 1,000 mcg PO BEDTIME 04/03/25 04/03/25 1,000 mcg tablet furosemide 20 mg tablet 20 mg PO QAM 04/03/25 04/03/25 metformin 750 mg tablet,extended 750 mg PO BID 04/03/25 04/03/25 release 24 hr mirabegron 50 mg tablet,extended 50 mg PO DAILY 04/03/25 04/03/25 release 24 hr (Myrbetriq) Previous Rx's ?Medication ?Instructions ?Recorded compression socks, medium #2 ea 02/20/25 lidocaine 5 % topical patch 2 patch topical DAILY #15 ea 03/11/25 Allergies Allergy/AdvReac Type Severity Reaction Status Date / Time cephalexin Allergy Intermediate Constipatio Verified 04/03/25 11:10 n oxycodone (From Percocet) AdvReac Mild VOMITING/DI Verified 04/03/25 11:10 ZZINES percocet Allergy Unknown nausea/dizz Uncoded 04/03/25 11:10 iness Review of Systems Constitutional: Constitutional: Reports as per HPI Eyes: Eyes: Reports as per HPI ENT: Reports as per HPI Cardiovascular: Cardiovascular: Reports as per HPI Respiratory: Respiratory: Reports as per HPI Gastrointestinal: Gastrointestinal: Reports as per HPI Genitourinary: Genitourinary: Reports as per HPI Musculoskeletal: Musculoskeletal: Reports as per HPI Integumentary/Breasts: Skin/Breast: Reports as per HPI Neurologic: Reports as per HPI Psychiatric: Psychiatric: Reports as per HPI Endocrine: Endocrine: Reports as per HPI Hematologic/Lymphatic: Hematologic/Lymphatic: Reports as per HPI Allergic/Immunologic: Allergic/Immunologic: Reports as per HPI PMF Past Medical History Attestation statement: The following information was validated with the patient. Source: old records reviewed and nursing notes reviewed Medical History Tubular adenoma of colon Neurogenic bladder Chronic anemia HTN (hypertension) Prostate cancer Hypercholesterolemia Diabetes mellitus Renal cyst Choledocholithiasis Diverticulosis Surgical History History of colonoscopy History of hernia surgery H/O prostatectomy Family History Family History Unknown Cancer Social History Social History Household Members: None Housing: Apartment Do you presently have visiting nurse or other home services: Yes (Meals on wheels) Alcohol intake: never Patient Tobacco Use Status: Never used Tobacco Smoked in Last 30 Days: No Use of substances other than those prescribed or required for medical reasons: No Advance Directives: Yes Advance Directives on File: Yes Advance Directives Date on File: 02/22/24 service: No Current occupational status: retired Current occupation: right handed Physical Exam ED Vital Signs: Vital Signs - 24 hr 04/03/25 12:29 04/03/25 14:00 04/03/25 20:11 Temperature 97.9 F 98.1 F 99.7 F Pulse Rate 82 98 83 Respiratory Rate 18 18 18 Blood Pressure 125/58 L 144/72 H 124/53 L Pulse Oximetry 98 99 97 Oxygen Delivery Method Room Air Room Air Room Air 04/04/25 06:12 Temperature 97.6 F Pulse Rate 82 Respiratory Rate 18 Blood Pressure 127/62 Pulse Oximetry 96 Oxygen Delivery Method Room Air BMI result Body Mass Index 25.7 Const General: cooperative, no acute distress, alert and awake Nutritional Appearance: well nourished Orientation/consciousness: patient oriented x3 HENMT Head: Yes normal to inspection and Yes atraumatic Ears: hearing grossly normal bilaterally and external ears normal General nose exam: Normal external nose present, no nasal discharge noted and no epistaxis Face and sinus: Yes normal facial exam, No abrasion and No laceration Mouth: Normal oral and palatal mucosa present, no drooling and no muffled voice Eyes General: appearance normal, both eyes and all related structures Periorbital: periorbital findings normal Eyelids: Yes eyelids normal Conjunctivae: conjunctivae normal Pupils: Equal, round and reactive pupils present EOM: EOMs intact bilaterally Neck Neck: Yes normal visual inspection and Yes full ROM Resp Effort & Inspection: normal respiratory effort and able to speak in complete sentences Neuro General: patient oriented x3, moves all extremities and CN's II-XI intact bilaterally Cranial nerves: Yes Equal, round and reactive pupils present Cognition (Neuro): normal cognition Extrem General: Yes normal to inspection, Yes full ROM and Yes capillary refill normal Psych Appearance: grossly normal Mental Status: mental status grossly normal Affect: normal affect Attitude: cooperative Thought process: Normal thought process present Thought content: Normal thought content present Insight: Good insight present (Psych) Course Course Course Narrative: 04/04/2025 0800 Jesusita Szymanski PA-C ---> Observation continues. Case management continues to follow. 04/04/2025 1130 Jesusita Szymanski PA-C ---> Observation care revealed the the patient does not meet medical necessity for hospitalization. Final disposition of discharge to [facility] discussed with the patient who verbalized understanding and agreement. Patient completed observation care at 1130 on 04/04/2025, total time spent in observation care was 1 day, 0 hours, and 13 minutes. Medications Administered Generic Name Dose Route Start Last Admin Trade Name Freq PRN Reason Stop Dose Admin Acetaminophen 975 mg 04/03/25 14:29 04/04/25 06:03 Acetaminophen 325 Mg Tablet PO 975 mg Q8H PRN Administration Pain, Moderate(Pain Scale 4-6) Amlodipine Besylate 5 mg 04/04/25 09:00 04/04/25 09:00 Amlodipine Besylate 5 Mg Tablet PO 5 mg DAILY JENS Administration Protocol Ascorbic Acid 500 mg 04/03/25 21:00 04/03/25 20:29 Ascorbic Acid 500 Mg Tablet PO 500 mg BEDTIME JENS Administration Aspirin 81 mg 04/04/25 09:00 04/04/25 09:00 Aspirin Enteric Coated 81 Mg Tablet. PO 81 mg DAILY JENS Administration Atorvastatin Calcium 20 mg 04/03/25 21:00 04/03/25 20:29 Atorvastatin Calcium 20 Mg Tablet PO 20 mg BEDTIME JENS Administration Cyanocobalamin 1,000 mcg 04/03/25 21:00 04/03/25 20:29 Cyanocobalamin (Vitamin B-12) 1,000 Mcg Tablet PO 1,000 mcg BEDTIME JENS Administration Ferrous Sulfate 324 mg 04/03/25 21:00 04/04/25 09:00 Ferrous Sulfate 324 Mg Tablet. PO 324 mg BID JENS Administration Furosemide 20 mg 04/03/25 14:30 04/04/25 09:00 Furosemide 20 Mg Tablet PO 20 mg DAILY JENS Administration Protocol Lidocaine 2 patch 04/04/25 09:00 04/04/25 09:00 Lidocaine 4 % Patch Adh..Patch TRANSDERMA 2 patch DAILY JENS Administration Metformin HCl 750 mg 04/03/25 21:00 04/03/25 20:29 Metformin Hcl Er 750 Mg Tab.Er.24h PO 750 mg BID JENS Administration Pioglitazone HCl 45 mg 04/03/25 19:00 04/03/25 20:29 Pioglitazone Hcl 45 Mg Tablet PO 45 mg DAILY@1900 JENS Administration Discontinued Medications Generic Name Dose Route Start Last Admin Trade Name Fabio PRN Reason Stop Dose Admin Lidocaine 1 patch 04/03/25 21:08 04/03/25 21:18 Lidocaine 4 % Patch Adh..Patch TRANSDERMA 04/03/25 21:09 1 patch ONCE ONE Administration Protocol Medical Decision Making Medical Decision Making [facility] Narrative: Patient is an 89 year old assigned male at with a history of prostate cancer s/p radiation therapy in 08/2024, DM, HTN, and sacral fracture on 03/23/2025 evaluated by [facility] who recommended no intervention and protected weight bearing presenting to the emergency department today with difficulty ambulating at home. Patient's physical exam was unremarkable. Patient's blood work showed mildly elevated LFTs with an AST of 41, ALT 44, and alk phos of 133 but otherwise unremarkable. These findings are non specific. Patient has no abdominal pain, no evidence of an intra-abdominal process. Patient's urine showed no acute process. I explained my physical exam findings as well as all test results to the patient. I answered all questions asked by the patient. Patient placed in observation at 1117 on 04/03/2025. Patient is pending physical therapy and case management evaluation. Differential Diagnosis Differential Diagnoses: The differential diagnosis associated with the presentation includes Failure to thrive Difficulty ambulating Sacral fracture Admission/Observation Consideration of admission/observation: Escalation of care including admission/observation considered Patient would have been admitted to the hospital had his work up had any findings where hospital admission was appropriate and his clinical presentation warranted hospital admission. Lab Data [facility] Lab Attestation statement: I reviewed the patient's lab results. My interpretation of these results are in the [facility] Rationale portion of this note. 04/03/25 11:35 04/03/25 11:35 Labs: Lab Results 04/03/25 04/03/25 04/03/25 Range/Units 11:35 11:59 13:08 WBC 5.5 (4.8-10.8) X10*3/uL RBC 3.57 L (4.60-5.80) X10*6/uL Hgb 9.8 L (14.0-18.0) g/dl Hct 28.8 L (42.0-52.0) % MCV 80.7 (80.0-98.0) fL MCH 27.5 (27.0-33.0) pg MCHC 34.0 (31.0-36.0) g/dl RDW 16.6 H (11.0-16.0) % Plt Count 295 (160-400) X10*3/uL MPV 9.2 L (9.4-12.4) fL Immature Gran % (Auto) 0.5 H (0.0-0.4) % Neut % (Auto) 83.3 H (45-73) % Lymph % (Auto) 5.8 L (20-40) % [place] % (Auto) 9.3 (2-11) % Eos % (Auto) 0.9 (0-4) % Baso % (Auto) 0.2 (0-2) % Lymph # (Auto) 0.3 L (1.2-4.9) X10*3/uL [place] # (Auto) 0.5 (0.1-1.2) X10*3/uL Eos # (Auto) 0.1 (0.0-0.4) X10*3/uL Baso # (Auto) 0.0 (0.0-0.2) X10*3/uL Abs Immat Gran (auto) 0.03 (0.00-0.03) X10*3/uL Absolute Neuts (auto) 4.6 (2.0-8.3) x10*3/uL Absolute Nucleated RBC 0.000 (0.0-0.012) X10*3/uL Nucleated RBC % (auto) 0.0 (0.0-0.2) /100WBC Sodium 139 (135-145) mmol/L Potassium 4.2 (3.3-5.1) mmol/L Chloride 104 (96-108) mmol/L Carbon Dioxide 27 (22-29) mmol/L Anion Gap 12 (12-20) BUN 27 H (9-16) mg/dL Creatinine 1.20 (0.5-1.4) mg/dL Estim Creat Clear Calc 36.3 Estimated GFR 57 POC Glucose 163 H (60-115) mg/dL Random Glucose 182 H (60-115) mg/dL Calcium 9.7 D (8.4-10.2) mg/dL Magnesium 1.8 (1.6-2.6) mg/dL Total Bilirubin 0.7 (0.0-1.0) mg/dL AST 41 H (5-37) U/L ALT 44 H (0-40) U/L Alkaline Phosphatase 133 H (39-117) U/L Total Protein 6.7 (6.5-8.0) g/dL Albumin 3.8 (3.5-5.0) g/dL Urine Color Yellow Urine Appearance Clear Urine pH 8.5 (5.0-9.0) Ur Specific [place] 1.015 (1.005-1.025) Urine Protein 30 (1+) H (Neg-Trace) mg/dL Urine Glucose (UA) Negative (Negative) mg/dL Urine Ketones Trace (Negative) mg/dL Urine Blood Negative (Negative) Urine Nitrite Negative (Negative) Ur Leukocyte Esterase Trace H (Negative) Urine RBC 0-2 (0-2) /HPF Urine WBC 0-5 (0-5) /HPF Ur Squamous Epith Cells 3-5 (0-2) /HPF Urine Bacteria Trace (None Seen) Hyaline Casts 3-5 (0-2) /LPF Influenza Type A (PCR) NEGATIVE (Negative) Influenza Type B (PCR) NEGATIVE (Negative) RSV RNA Qual (PCR) NEGATIVE (Negative) SARS-CoV-2 RNA (RT-PCR) NEGATIVE (Negative) 04/03/25 04/04/25 Range/Units 16:41 07:29 WBC (4.8-10.8) X10*3/uL RBC (4.60-5.80) X10*6/uL Hgb (14.0-18.0) g/dl Hct (42.0-52.0) % MCV (80.0-98.0) fL MCH (27.0-33.0) pg MCHC (31.0-36.0) g/dl RDW (11.0-16.0) % Plt Count (160-400) X10*3/uL MPV (9.4-12.4) fL Immature Gran % (Auto) (0.0-0.4) % Neut % (Auto) (45-73) % Lymph % (Auto) (20-40) % [place] % (Auto) (2-11) % Eos % (Auto) (0-4) % Baso % (Auto) (0-2) % Lymph # (Auto) (1.2-4.9) X10*3/uL [place] # (Auto) (0.1-1.2) X10*3/uL Eos # (Auto) (0.0-0.4) X10*3/uL Baso # (Auto) (0.0-0.2) X10*3/uL Abs Immat Gran (auto) (0.00-0.03) X10*3/uL Absolute Neuts (auto) (2.0-8.3) x10*3/uL Absolute Nucleated RBC (0.0-0.012) X10*3/uL Nucleated RBC % (auto) (0.0-0.2) /100WBC Sodium (135-145) mmol/L Potassium (3.3-5.1) mmol/L Chloride (96-108) mmol/L Carbon Dioxide (22-29) mmol/L Anion Gap (12-20) BUN (9-16) mg/dL Creatinine (0.5-1.4) mg/dL Estim Creat Clear Calc Estimated GFR POC Glucose 229 H 161 H (60-115) mg/dL Random Glucose (60-115) mg/dL Calcium (8.4-10.2) mg/dL Magnesium (1.6-2.6) mg/dL Total Bilirubin (0.0-1.0) mg/dL AST (5-37) U/L ALT (0-40) U/L Alkaline Phosphatase (39-117) U/L Total Protein (6.5-8.0) g/dL Albumin (3.5-5.0) g/dL Urine Color Urine Appearance Urine pH (5.0-9.0) Ur Specific [place] (1.005-1.025) Urine Protein (Neg-Trace) mg/dL Urine Glucose (UA) (Negative) mg/dL Urine Ketones (Negative) mg/dL Urine Blood (Negative) Urine Nitrite (Negative) Ur Leukocyte Esterase (Negative) Urine RBC (0-2) /HPF Urine WBC (0-5) /HPF Ur Squamous Epith Cells (0-2) /HPF Urine Bacteria (None Seen) Hyaline Casts (0-2) /LPF Influenza Type A (PCR) (Negative) Influenza Type B (PCR) (Negative) RSV RNA Qual (PCR) (Negative) SARS-CoV-2 RNA (RT-PCR) (Negative) Independent Historian Clinical information obtained from an independent historian. History obtained from or confirmed by: EMS (EMS provided additional history and confirmed the history provided by the patient. ) Discharge Plan Discharge Clinical Impression: Difficulty in walking Closed sacral fracture Qualifiers: Encounter type: subsequent encounter Zone of sacrum fracture: unspecified portion of sacrum Fracture healing: with nonunion Qualified Code(s): S32.10XK - Unspecified fracture of sacrum, subsequent encounter for fracture with nonunion Prescriptions: No Action lidocaine 5 % adhesive patch,medicated 2 patch topical DAILY Qty: 15 0RF Rx Instructions: leave on most painful area for up to 12 hrs cyanocobalamin (vitamin B-12) 1,000 mcg tablet 1,000 mcg PO BEDTIME acetaminophen 500 mg tablet 500 - 1,000 mg PO Q8H PRN (Reason: fever) furosemide 20 mg tablet 20 mg PO QAM metformin 750 mg tablet extended release 24 hr 750 mg PO BID mirabegron [Myrbetriq] 50 mg tablet extended release 24 hr 50 mg PO DAILY ascorbic acid (vitamin C) [Vitamin C] 500 mg tablet 500 mg PO BEDTIME magnesium oxide 400 mg (241.3 mg magnesium) tablet 400 mg PO DAILY@1200 (DME) compression socks, medium Misc See Rx Instructions .Route Qty: 2 0RF Rx Instructions: As directed aspirin 81 mg tablet,delayed release (DR/EC) 81 mg PO DAILY amlodipine 5 mg tablet 5 mg PO DAILY (DME) lancets [TRUEplus Lancets] 33 gauge misc See Rx Instructions .ROUTE .MEDSUPPLY Qty: 100 Rx Instructions: As directed (DME) FreeStyle Lite Strips Strip See Rx Instructions .ROUTE .MEDSUPPLY Qty: 10 Rx Instructions: As directed atorvastatin 20 mg tablet 20 mg PO BEDTIME ferrous sulfate [FeroSul] 325 mg (65 mg iron) tablet 325 mg PO BID pioglitazone 45 mg tablet 45 mg PO DAILY@1900 Referrals: [facility] [Outside] Referral Note: [phone] Print Language: Unable To Collect
[2025-04-03 11:37] LABS: MANUAL DIFF FLAG NO
[2025-04-03 11:39] LABS: Hematocrit 28.8 % (42.0-52.0); Hemoglobin 9.8 g/dl (14.0-18.0); Imm Gran Abs Auto 0.03 X10*3/uL (0.00-0.03); Imm Gran Pct Auto 0.5 % (0.0-0.4); Lymphocytes Absolute Auto 0.3 X10*3/uL (1.2-4.9); Mean Corpuscular HGB Conc 34.0 g/dl (31.0-36.0); Mean Corpuscular Hemoglobin 27.5 pg (27.0-33.0); Mean Corpuscular Volume 80.7 fL (80.0-98.0); NRBC Abs Auto 0.000 X10*3/uL (0.0-0.012); NRBC Pct Auto 0.0 /100WBC (0.0-0.2); Platelet Count 295 X10*3/uL (160-400); Red Blood Count 3.57 X10*6/uL (4.60-5.80); White Blood Count 5.5 X10*3/uL (4.8-10.8)
[2025-04-03 11:53] LABS: Alanine Aminotransferase 44 U/L (0-40); Albumin Level 3.8 g/dL (3.5-5.0); Alkaline Phosphatase 133 U/L (39-117); Anion Gap 12 (12-20); Aspartate Amino Transferase 41 U/L (5-37); Blood Urea Nitrogen 27 mg/dL (9-16); Calcium 9.7 mg/dL (8.4-10.2); Carbon Dioxide 27 mmol/L (22-29); Chloride 104 mmol/L (96-108); Creatinine Clr Calc Pharmacy 36.3; Estimated Glomerular Filt Rate 57; Magnesium 1.8 mg/dL (1.6-2.6); Potassium 4.2 mmol/L (3.3-5.1); Sodium 139 mmol/L (135-145); Total Protein 6.7 g/dL (6.5-8.0)
--- NOTE | 2025-04-03 12:03 | PHA.MEDREC ---
Pharmacy Consult ? Medication Reconciliation Pharmacy has completed the medication reconciliation. Received med list from [facility] and [facility]. Used this and pharmacy claims to confirm home meds.
[2025-04-03 12:08] LABS: Appearance Urine Clear; Glucose Urine UA Negative (Negative); PH 8.5 (5.0-9.0); Specific Gravity - Urine 1.015 (1.005-1.025); UMIC TRIGGER UACC YES
[2025-04-03 12:29] VITALS: BP 125/58; PULSE 82; RESP 18; TEMP 36.6; O2SAT 98
[2025-04-03 12:47] LABS: Resp Syncy Virus RNA Qual PCR NEGATIVE (Negative); SARS COV2 PCR INHOUSE NEGATIVE (Negative)
[2025-04-03 13:11] LABS: Glucose, Whole Blood 163 mg/dL (60-115)
--- NOTE | 2025-04-03 13:46 | MHC.CM.ED ---
Addendum entered by Kylee Stoddard 04/03/25 14:40: [facility] will not have a bed before 04/05. Patient aware and agreeable to referral being broadcasted for bed availability. Original Note: Received case management consult from Jesusita HOLLIS. Patient came to the ER after a fall. Work up essentially negative. Physical therapy eval ordered and pending. Met with patient and automotive parts interpreter in regards to discharge planning. Patient lives alone, ambulates with a cane and was d/c'd from [facility] yesterday, 04/02. Home care was arranged but did not have a chance to start service yet due to coming to the ER. PCP verified. Copy of HCP verified to be on file. Patient would like to return to [facility] if STR is recommended. Return referral made in [facility]. Continue to monitor for d/c needs.
[2025-04-03 14:00] VITALS: BP 144/72; PULSE 98; RESP 18; TEMP 36.7; O2SAT 99
--- NOTE | 2025-04-03 14:11 | PC.NURSE ---
pt brought to OF bed 2 from main ed, pt a&ox3, pt had PT eval- pt ambulated with walker with steady gait, however patient had increased 10/10 low back/rt leg pain with quick turning movements- when at rest patient has no pain. case management was at bedside states patient recently discharged from [facility] and they would place a referral as patient was willing to go back to that facility. call agudelo within reach, plan of care ongoing
--- OUTSIDE RECORDS SUMMARY | 2025-04-03 14:34 | XMS_ITS | Encounter Summary ---
Author Organization [employer] Address [address] [place] [address] [address] [place] [address] Care Team Providers Care Forge Operator Helper Name Role Phone Jolly London MD Primary Care Provider [phone] Javier Benton PharmD Unavailable [phone] Reason for Visit * Reason Comments Med Refill Encounter Details Date Type Department Care Team (Late st Contact Info) Description 10/14/2022 Refill [facility] [address] [place] [phone] Ximena Harkins FNP Social History Tobacco Use [...] Care Team (Late st Contact Info) Description 05/27/2025 3:15 PM EST Office Visit [facility] [address] [place] [phone] Jolly London MD [address] [place] [phone] 06/10/2025 2:00 PM EST Medication Management [facility] [address] [place] [address] Javier Benton, PharmD [address] [place] [address] documented as of this encounter Visit Diagnoses Not on filedocumented in this encounter Care Teams Forge Operator Helper Relationship Specialty Start Date End Date Jolly London MD [address] [place] [phone] PCP - General Family Medicine 06/29/12 Javier Benton, PharmD [address] [place] [address] Pharmacist Internal Medicine 01/14/23 documented as of this encounter
--- OUTSIDE RECORDS SUMMARY | 2025-04-03 14:34 | XMS_ITS | Encounter Summary ---
Author Organization [employer] Address [address] [facility] 7t [place] [address] Care Team Providers Care Site Project Manager Name Role Phone Jolly London MD Primary Care Provider [phone] Javier Benton PharmD Unavailable [phone] Encounter Details Date Type Department Care Team (Late st Contact Info) Description 04/03/2025 Orders Only GENERIC EXTERNAL DATA DEPARTMENT Provider, Generic External Data Social History Tobacco Use Types Packs/Day Years [...] the past 12 months, has t he [email or web address], gas, oil or water [employer] threatened to shut off services in your [...] Description 05/27/2025 3:15 PM EST Office Visit [address] [address] Jolly London MD [address] [place] [address] 06/10/2025 2:00 PM EST Medication Management [address] [address] Javier Benton, PharmD [address] [place] [address] documented as of this encounter Goals Goal Patient Goal Type Associated Problems Recent Progress Patient-Stated? Author Blood Pressure < 140/90 Blood Pressure 144/70( 025 3:24 PM EDT) No Javier Benton, PharmD documented as of this encounter Procedures Procedure Name Priority Date/Time Associated Diagnosis Comments GLUCOSE, WHOLE BLOOD Routine 04/03/2025 1:08 PM EDT URINALYSIS, COMPLETE, WITH REFLEX TO CULTURE Routine 04/03/2025 11:59 AM EDT SARS COV2/INFLUENZA A/B AND RSV RNA QL NAAT Routine 04/03/2025 11:59 AM EDT documented in this encounter Results * (ABNORMAL) Glucose, Whole Blood (04/03/2025 1:08 PM EDT) Glucose, Whole Blood 163(H) 60 - 115 mg/dL [facility] Comment:METER #: [id number] 04/03/2025 1:08 PM EDT 04/03/2025 1:11 PM EDT Generic External Data Provider LAB BLOOD ORDERAB LES Final Result Performing Organization Address [facility]/ZIP Co de Phone Number [facility] [address] [place] [phone] * SARS-CoV-2 RNA, Influenza A/B, and RSV RNA, Ql NAAT (04/03/2025 11:59 AM EDT) [facility] Influenza A PCR NEGATIVE Negative [facility] Influenza B PCR NEGATIVE Negative [facility] Resp Syncy Virus RNA Qual PCR NEGATIVE Negative [facility] SARS COV2 PCR NEGATIVE Negative [facility] Comment:All test results mus t be correlated with clinical findings.Negative results do not preclude SARS-CoV2, influenza Avirus, influenza B virus and/or RSV infectionand should not be used as the sole basis for treatment orother patient management decisions. Negative results must becombined with clinical observations, patient history, andepidemiological information.This test has not been evaluated for monitoring treatment ofinfection.This test has been authorized by the FDA under an EmergencyUse Authorization (EUA) for use by authorized laboratories.Testing performed on the [employer] website GeneXpert utilizingreal-time RT-PCR.All SARS CoV2 and positive influenza A/B results arereported to [facility]. 04/03/2025 11:5 9 AM EDT 04/03/2025 12:03 PM EDT us Generic External Data Provider LAB MICROBIOLOGY - GENERAL ORDERABLES Final Result Performing Organization Address [facility]/ZIP Co de Phone Number [facility] [address] [place] [phone] * (ABNORMAL) Urinalysis, Complete, with Reflex to Culture (04/03/2025 11:59 AM EDT) Color Urine Yellow [facility] Appearance Urine Clear [facility] PH 8.5 5.0 - 9.0 [facility] Glucose Urine UA Negative Negative mg/dL [facility] Urine Blood Negative Negative [facility] Specific [place] - Urine 1.015 1.005 - 1.025 [facility] Urine Protein 30 (1+)(A) Neg-Trace mg/dL [facility] Urine Ketones Trace Negative mg/dL [facility] Nitrite Urine Negative Negative [facility] Leukocyte Esterase Urine Trace(A) Negative [facility] RBC Urine 0-2 0 - 2 /HPF [facility] Urine WBC 0-5 0 - 5 /HPF [facility] Urine Squamous Epithelial Cell 3-5 0 - 2 /HPF [facility] Urine Bacteria Trace None Seen [facility] Hyaline Casts, Urine 3-5 0 - 2 /LPF [facility] 04/03/2025 11:5 9 AM EDT 04/03/2025 12:03 PM EDT Narrative [facility] - 04/03/2025 12:12 PM EDT [id number], [employer] us Generic External Data Provider LAB URINE ORDERAB LES Final Result Performing Organization Address City/State/[facility] Co de Phone Number [facility] [address] [place] [phone] [phone] documented in this encounter Visit Diagnoses Not on filedocumented in this encounter Additional Health Concerns Assessment Noted Time PHQ-9 Depression Total Score: 1 08/13/19 25 3:11 PM EST documented as of this encounter Care Teams Site Project Manager Relationship Specialty Start Date End Date Jolly London MD [address] [place] [address] PCP - General Family Medicine 06/29/12 Javier Benton, AreliD [address] [place] [address] Pharmacist Internal Medicine 01/14/23 documented as of this encounter
--- OUTSIDE RECORDS SUMMARY | 2025-04-03 14:34 | XMS_ITS | Encounter Summary ---
Author Organization [employer] Address 75 [facility] 7t [place] [address] Care Team Providers Care Trade Union Secretary Name Role Phone Jolly London MD Primary Care Provider [phone] Javier Benton PharmD Unavailable [phone] Reason for Visit * Reason Comments Med Refill Encounter Details Date Type Department Care Team ([facility] st Contact Info) Description 11/13/[address] [facility] [address] [place], [place] [phone] Jolly London MD [address] [place], [place] [phone] Social History Tobacco Use Types Packs/Day Years [...] t he electric, gas, oil or water [employer] threatened to shut off services in your [...] Description 05/27/2025 3:15 PM EST Office Visit [address] [phone] Jolly London MD [address] [place] [address] 06/10/2025 2:00 PM EST Medication Management [address] [address] Javier Benton, PharmDiamond [address] [place] [address] documented as of this encounter Goals Goal [...] documented as of this encounter Care Teams Trade Union Secretary Relationship Specialty Start Date End Date Jolly London MD [address] [place] [address] [phone] PCP - General Family Medicine 06/29/12 Javier Benton, AreliD [address] [place] [address] [phone] Pharmacist Internal Medicine 01/14/23 documented as of this encounter
--- OUTSIDE RECORDS SUMMARY | 2025-04-03 14:34 | XMS_ITS | Encounter Summary ---
Author Organization [employer] Address [address] [facility] 7t [place] [address] Care Team Providers Care Informatics Educator Name Role Phone Jolly London MD Primary Care Provider [phone] Javier Benton PharmD Unavailable [phone] Reason for Referral * Consultation (Routine) - Authorized Specialty Diagnoses / Procedures Referred By Contac t Referred To Contact Pharmacy Diagnoses Primary hypertension Type 2 diabetes mellitus with hyperglycemia, without long-term current use of insulin (CMS/HCC) Jolly Lonodn MD [address] [place] [address] Phone: tel: fax: Referral ID Status Reason Start Date Expiration Date Visits Requested Visits Authorized [id number] Authorized Consult and Treat 02/05/2025 02/05/2026 6 6 Encounter Details Date Type Department Care Team (Late st Contact Info) Description 02/05/2025 Orders Only [facility] [address] [place], [place] [phone] Jolly London MD [address] [place], [place] [phone] Primary hypertension (Primary Dx); Type 2 diabetes [...] Description 05/27/2025 3:15 PM EST Office Visit [facility] [address] [place] [address] Jolly London MD [address] [place] [address] 06/10/2025 2:00 PM EST Medication Management [facility] [address] [place] [address] Javier Benton, PharmD [address] [place] [address] Scheduled Referrals Name Type Priority Associated Diagnoses Orde r Schedule Referral to Pharmacy CDTM Outpatient Referral Routine Primary hypertension Type 2 diabetes mellitus with hyperglycemia, without long-term current use of insulin ([facility]) Ordered: 02/05/2025 documented as of this encounter [...] AM EDT Narrative 02/20/2025 11:58 AM EDT [address] [address] XRay Report Signed Patient: Toni Keys MR#: [id number] : 1935 Acct:[id number] Age/Sex: 89 / M ADM Date: 02/20/25 Loc: HO.ED Attending Dr: Ordering Physician: Moira Sanchez Date of Service: 02/20/25 Procedure(s): XR hip RT w PEL1V Accession Number(s): [id number] cc: Moira Sanchez; Jolly London MD EXAMINATION: [...] Simón Aden MD 02/20/2025 11:55 AM EDT RP Dictated By: Simón Aden MD Signed By: <Electronically signed by Simón Aden MD in OV> 02/20/25 1155 DD/ 1050 TD/TT: 02/20/25 1149 Speech Instructor: Procedure Note Donotuseinterpreter, Image - 02/20/2025 [place] [address] XRay Report Signed Patient: Toni Keys MR#: [id number] : 8Acct:[id number] Age/Sex: 89 / MADM Date: 02/20/25 Loc: .ED Attending Dr: Ordering Physician: Moira Sanchez Date of Service: 02/20/25 Procedure(s): XR hip RT w PEL1V Accession Number(s): [id number] cc: Moira Sanchez; Jolly London MD EXAMINATION: [...] Simón Aden MD 02/20/2025 11:55 AM EDT RP Dictated By: Simón Aden MD Signed By: <Electronically signed by Simón Aden MD in OV> 02/20/25 1155 DD/ 1050 TD/TT: 02/20/25 1149 Speech Instructor: [facility] External Provider IMG XR PROCEDURES Final Result documented in this encounter Visit Diagnoses Diagnosis Primary hypertension- Primary Unspecified essential hypertension Type 2 diabetes mellitus with hyperglycemia, without long-term current use of insulin ([facility]) documented in this encounter Additional Health Concerns Assessment Noted Time PHQ-9 Depression Total Score: 1 08/13/19 25 3:11 PM EST documented as of this encounter Care Teams Informatics Educator Relationship Specialty Start Date End Date Jolly London MD [address] [place] [address] PCP - General Family Medicine 06/29/12 Javier Benton, AreliD [address] [place] [address] Pharmacist Internal Medicine 01/14/23 documented as of this encounter
--- OUTSIDE RECORDS SUMMARY | 2025-04-03 14:34 | XMS_ITS | Encounter Summary ---
Author Organization [employer] Address [address] [facility] 7t [place] [address] Care Team Providers Care Floor Mechanic Name Role Phone Jolly London MD Primary Care Provider [phone] Javier Benton PharmD Unavailable [phone] Encounter Details Date Type Department Care Team (Late st Contact Info) Description 02/28/2023 Orders Only [facility] [address] [place] [address] [phone] Jolly London MD [address] [place] [address] [phone] Anemia of chronic disorder (Primary Dx); Hyperkalemia [...] Description 05/27/2025 3:15 PM EST Office Visit [facility] [address] [place] [address] [phone] Jolly London MD [address] [place] [address] [phone] 06/10/2025 2:00 PM EST Medication Management [facility] [address] [place] [address] Javier Benton, PharmD [address] [place] [address] Scheduled Orders Name Type Priority Associated Diagnoses [...] documented as of this encounter Care Teams Floor Mechanic Relationship Specialty Start Date End Date Jolly London MD [address] [place] [address] PCP - General Family Medicine 06/29/12 Javier Benton, PharmD [address] [place] [address] Pharmacist Internal Medicine 01/14/23 documented as of this encounter
--- OUTSIDE RECORDS SUMMARY | 2025-04-03 14:34 | XMS_ITS | Patient Health Record ---
Author Organization [facility] Billing Info Address [address] [place] [address] [place] [address] Care Team Providers Care Agile Scrum Coach Name Role Phone Nadia Black Primary Care Provider CRIS Lr Unavailable [phone] Allergies No Known Allergies Reason For Referral [...] Problem Status W/U Status Risk Notes Problem [id number] Urinary frequenc y (R35.0) Active confirmed Problem [id number] Prostate cancer (C61) Active confirmed Problem [id number] Urge incontinenc e of urine (N39.41) Active confirmed Plan Of Treatment No Information Insurance Providers Payer Name Payer Address Payer Phone Subscriber Number Group Number Insured Name Patient Relationship to Insured Coverage Start Date Coverage End Date [facility] [address] TELMA BOATENG [id number] Toni Leyva Self - patient is the insured 8 [facility] [address] [place], [place] [id number] Toni Leyva Self - patient is the insured 1 1 MEDICARE [place] PART B [address] [facility] SHEY TELMA YOUNG [id number] Toni Leyva Self - patient is the insured Medical (General) History Medical History History ICD Code Prostate cancer Diabetes mellitus Hypertension Hyperlipidemia Constipation UTI Hemriods Surgical History Surgery Date(Month/Year) prostate circumcision cataract surgery
--- OUTSIDE RECORDS SUMMARY | 2025-04-03 14:34 | XMS_ITS | Encounter Summary ---
Author Organization [employer] Address 75 [facility] 7t [place] [address] Care Team Providers Care Community Services Coordinator Name Role Phone Jolly London MD Primary Care Provider [phone] Javier Benton PharmD Unavailable [phone] Encounter Details Date Type Department Care Team ([facility] st Contact Info) Description 12/14/2023 Orders Only [facility] 230 [place], [place] [phone] Jolly London MD [address] [place], [place] [phone] Social History Tobacco Use Types Packs/Day Years [...] Description 05/27/2025 3:15 PM EST Office Visit [facility] [address] [place] [address] Jolly London MD [address] [place] [address] 06/10/2025 2:00 PM EST Medication Management [address] [phone] Javier Benton PharmD [address] [place] [address] documented as of this encounter Goals Goal [...] documented as of this encounter Care Teams Community Services Coordinator Relationship Specialty Start Date End Date Jolly London MD [address] [place] [address] [phone] PCP - General Family Medicine 06/29/12 Javier Benton PharmD [address] [place] [address] [phone] Pharmacist Internal Medicine 01/14/23 documented as of this encounter
--- OUTSIDE RECORDS SUMMARY | 2025-04-03 14:34 | XMS_ITS | Encounter Summary ---
Author Organization [employer] Address 75 [facility] 7t [place] [address] Care Team Providers Care Armature Winder Repair Helper Name Role Phone Jolly London MD Primary Care Provider Javier Benton PharmD Unavailable [phone] Encounter Details Date Type Department Care Team ([facility] st Contact Info) Description 03/11/2025 Results Follow-Up [facility] [address] [place] [address] Jolly London MD [address] [place] [address] CT Abdomen Pelvis w/ Contrast Social History [...] Description 05/27/2025 3:15 PM EST Office Visit [facility] [address] [place] [address] Jolly London MD [address] [place] [address] 06/10/2025 2:00 PM EST Medication Management [address] [address] Javier Benton PharmD [address] [place] [address] documented as of this encounter Goals Goal [...] documented as of this encounter Care Teams Armature Winder Repair Helper Relationship Specialty Start Date End Date Jolly London MD [address] [place] [address] PCP - General Family Medicine 06/29/12 Javier Benton, AreliD [address] [place] [address] Pharmacist Internal Medicine 01/14/23 documented as of this encounter
--- OUTSIDE RECORDS SUMMARY | 2025-04-03 14:34 | XMS_ITS | Encounter Summary ---
Author Organization [employer] Address 75 [facility] 7t [place] [address] Care Team Providers Care Director Cpg Name Role Phone Jolly London MD Primary Care Provider [phone] Javier Benton PharmD Unavailable [phone] Reason for Referral * Consultation (Routine) - Canceled Specialty Diagnoses / Procedures Referred By Contac t Referred To Contact Pharmacy Diagnoses Primary hypertension Type 2 diabetes mellitus with hyperglycemia, without long-term current use of insulin (CMS/HCC) Jolly London MD [address] [place] [address] Phone: tel: fax: Referral ID Status Reason Start Date Expiration Date V isits Requested Visits Authorized [id number] Canceled Consult and Treat 05/29/2024 05/29/2025 6 6 Encounter Details Date Type Department Care Team (Late st Contact Info) Description 05/29/2024 Orders Only [facility] [address] [place], [place] [phone] Jolly London MD [address] [place], [place] [phone] Primary hypertension (Primary Dx); Type 2 diabetes [...] Description 05/27/2025 3:15 PM EST Office Visit [facility] [address] [place] [address] Jolly London MD [address] [place] [address] 06/10/2025 2:00 PM EST Medication Management [facility] [address] [place] [address] Javier Benton, AreliD [address] [place] [address] Scheduled Referrals Name Type Priority Associated Diagnoses Orde r Schedule Referral to Pharmacy CDTM Outpatient Referral Routine Primary hypertension Type 2 diabetes mellitus with hyperglycemia, without long-term current use of insulin ([facility]) Ordered: 05/29/2024 documented as of this encounter Goals Goal Patient Goal Type Associated Problems Recent Progress Patient-Stated? Author Blood Pressure < 140/90 Blood Pressure 144/70( 025 3:24 PM EDT) No Javier Benton, PharmDiamond documented as of this encounter Visit Diagnoses Diagnosis Primary hypertension- Primary Unspecified essential hypertension Type 2 diabetes mellitus with hyperglycemia, without long-term current use of insulin ([facility]) documented in this encounter Additional Health Concerns Assessment Noted Time PHQ-9 Depression Total Score: 0 02/15/20 23 1:30 PM EDT documented as of this encounter Care Teams Director Cpg Relationship Specialty Start Date End Date Jolly London MD [address] [place] [address] PCP - General Family Medicine 06/29/12 Javier Benton, PharmD [address] [place] [address] Pharmacist Internal Medicine 01/14/23 documented as of this encounter
--- OUTSIDE RECORDS SUMMARY | 2025-04-03 14:34 | XMS_ITS | Encounter Summary ---
Author Organization [employer] Address 75 [facility] 7t [place] [address] Care Team Providers Care Rails Developer Name Role Phone Jolly London MD Primary Care Provider [phone] Javier Benton PharmD Unavailable [phone] Encounter Details Date Type Department Care Team ([facility] st Contact Info) Description 03/07/2024 Orders Only [facility] [address] [place], [place] [phone] Jolly London MD [address] [place], [place] [phone] Social History Tobacco Use Types Packs/Day Years [...] Description 05/27/2025 3:15 PM EST Office Visit [facility] [address] [place] [address] Jolly London MD [address] [place] [address] 06/10/2025 2:00 PM EST Medication Management [address] [phone] Javier Benton PharmD [address] [place] [address] documented as of this encounter Goals Goal [...] documented as of this encounter Care Teams Rails Developer Relationship Specialty Start Date End Date Jolly London MD [address] [place] [address] [phone] PCP - General Family Medicine 06/29/12 Javier Benton PharmD [address] [place] [address] [phone] Pharmacist Internal Medicine 01/14/23 documented as of this encounter
--- OUTSIDE RECORDS SUMMARY | 2025-04-03 14:34 | XMS_ITS | Encounter Summary ---
Author Organization [employer] Address 75 [facility] 7t [place] [address] Care Team Providers Care Electric Truck Driver Name Role Phone Jolly London MD Primary Care Provider [phone] Javier Benton PharmD Unavailable [phone] Reason for Referral * Consultation (Urgent) - Closed Specialty Diagnoses / Procedures Referred By Contac t Referred To Contact Diagnoses Sensorineural hearing loss, bilateral Dizziness Jolly London MD [address] [place] [address] Phone: tel: fax: Fred Mann [address] [place] [address] Drive [address] [place], [place] [address] Phone: tel: fax: Referral ID Status Reason Start Date Expiration Date V isits Requested Visits Authorized [id number] Closed Specialty Services Required 10/10/2024 10/10/2025 1 1 Encounter Details Date Type Department Care Team (Late st Contact Info) Description 10/10/2024 Orders Only [facility] [address] [place], [place] [phone] Jolly London MD [address] [place], [place] [phone] Sensorineural hearing loss, bilateral (Primary Dx); Dizziness [...] Description 05/27/2025 3:15 PM EST Office Visit [facility] [address] [place] [address] Jolly London MD [address] [place] [address] 06/10/2025 2:00 PM EST Medication Management [facility] [address] [place] [address] Javier Benton, PharmD [address] [place] [address] Scheduled Referrals Name Type Priority Associated Diagnoses [...] documented as of this encounter Care Teams Electric Truck Driver Relationship Specialty Start Date End Date Jolly London MD [address] [place] [address] PCP - General Family Medicine 06/29/12 Javier Benton, PharmD [address] [place] [address] Pharmacist Internal Medicine 01/14/23 documented as of this encounter
--- OUTSIDE RECORDS SUMMARY | 2025-04-03 14:34 | XMS_ITS | Encounter Summary ---
Author Organization [employer] Address [address] [facility] 7t [place] [address] Care Team Providers Care Safe And Vault Mechanic Name Role Phone Jolly London MD Primary Care Provider [phone] Javier Benton PharmD Unavailable [phone] Encounter Details Date Type Department Care Team (Late st Contact Info) Description 04/03/2025 Telephone [facility] [address] [place], [place] [phone] Kourtney lOguin, PharmD [address] [place], [place] [phone] Social History Tobacco Use Types Packs/Day Years [...] encounter Miscellaneous Notes * Telephone Encounter - Preeti Corrales RN - 04/03/2025 1:51 PM EDT Noted. Appt for tomorrow cancelled as requested. * Telephone Encounter - Kourtney Olguin PharmD - 04/03/2025 1:40 PM EDT Patient reported they are currently admitted to [facility] and will not be able to make appointment tomorrow. Will contact office to r/s when they are discharged. documented in this encounter Plan of Treatment Upcoming Encounters Date Type Department Care Team (Late st Contact Info) Description 05/27/2025 3:15 PM EST Office Visit [facility] [address] [place] [address] Jolly London MD [address] [place] [address] 06/10/2025 2:00 PM EST Medication Management [facility] [address] [place] [address] Javier Benton, Marc [address] [place] [address] documented as of this encounter Goals Goal [...] documented as of this encounter Care Teams Safe And Vault Mechanic Relationship Specialty Start Date End Date Jolly London MD [address] [place] [address] PCP - General Family Medicine 06/29/12 Javier Benton, PharmD [address] [place] [address] Pharmacist Internal Medicine 01/14/23 documented as of this encounter
--- OUTSIDE RECORDS SUMMARY | 2025-04-03 14:34 | XMS_ITS | Encounter Summary ---
Author Organization [employer] Address [address] [facility] 7t [place] [address] Care Team Providers Care Education Professor Name Role Phone Jolly London MD Primary Care Provider [phone] Javier Benton PharmD Unavailable [phone] Reason for Visit * Reason Onset Date Comments Hospital Follow-up 03/28/2025 Encounter Details Date Type Department Care Team ([facility] st Contact Info) Description 03/28/2025 Telephone [facility] [address] [place], [place] [phone] Jolly London MD [address] [place], [place] [phone] Hospital Follow-up Social History Tobacco Use Types Packs/Day Years [...] encounter Miscellaneous Notes * Telephone Encounter - Seda Bapitste - 03/28/2025 2:02 PM EDT Tc from pt requesting a HDF appt. Hospital: [facility] [place] Date of admission: 03/23 Discharge date: 04/02 Diagnosed: fracture in hip *Send message to [facility] Coordinators documented in this encounter Plan of Treatment Upcoming Encounters Date Type Department Care Team (Late st Contact Info) Description 05/27/2025 3:15 PM EST Office Visit [facility] [address] [place] [phone] Jolly London MD [address] [place] [address] 06/10/2025 2:00 PM EST Medication Management [facility] [address] [place] [address] Javier Benton, PharmD [address] [place] [address] documented as of this encounter Goals Goal [...] documented as of this encounter Care Teams Education Professor Relationship Specialty Start Date End Date Jolly London MD [address] [place] [address] PCP - General Family Medicine 06/29/12 Javier Benton, AreliD [address] [place] [address] Pharmacist Internal Medicine 01/14/23 documented as of this encounter
--- OUTSIDE RECORDS SUMMARY | 2025-04-03 14:34 | XMS_ITS | Encounter Summary ---
Author Organization [employer] Address [address] [facility] 7t [place] [address] Care Team Providers Care Binder Operator Name Role Phone Jolly London MD Primary Care Provider [phone] Javier Benton PharmD Unavailable [phone] Reason for Visit * Reason Onset Date Comments chart prep 04/03/2025 Encounter Details Date Type Department Care Team ([facility] st Contact Info) Description 04/03/2025 Telephone [facility] [address] [place], [place] [phone] Jolly London MD [address] [place], [place] [phone] chart prep Social History Tobacco Use Types Packs/Day Years [...] encounter Miscellaneous Notes * Telephone Encounter - Juan Pablo Voss MA - 04/03/2025 10:54 AM EDT Chart Prep Labs: done Images: done Referrals: complete Vaccines due: Covid and Flu Screenings: not applicable Overdue care gaps: Glucose and SBIRT documented in this encounter Plan of Treatment Upcoming Encounters Date Type Department Care Team (Late st Contact Info) Description 05/27/2025 3:15 PM EST Office Visit [facility] [address] [place] [phone] Jolly London MD [address] [place] [address] 06/10/2025 2:00 PM EST Medication Management [facility] [address] [place] [address] Javier Benton, PharmD [address] [place] [address] documented as of this encounter Goals Goal [...] documented as of this encounter Care Teams Binder Operator Relationship Specialty Start Date End Date Jolly London MD [address] [place] [address] PCP - General Family Medicine 06/29/12 Javier Benton, PharmD [address] [place] [address] Pharmacist Internal Medicine 01/14/23 documented as of this encounter
--- OUTSIDE RECORDS SUMMARY | 2025-04-03 14:34 | XMS_ITS | Encounter Summary ---
Author Organization [employer] Address [address] [facility] 7t [place] [address] Care Team Providers Care Global Climate Change Researcher Name Role Phone Jolly London MD Primary Care Provider [phone] Javier Benton PharmD Unavailable Reason for Referral * Consultation (Routine) - Closed Specialty Diagnoses / Procedures Referred By Contac t Referred To Contact Audiology Diagnoses Sensorineural hearing loss, bilateral Jolly London MD [address] [place] [address] Phone: tel: fax: [facility] Aud[facility] [address] Floor [place], [place] Phone: tel: fax: Referral ID Status Reason Start Date Expiration Date V isits Requested Visits Authorized [id number] Closed Specialty Services Required 10/10/2024 10/10/2025 1 1 Encounter Details Date Type Department Care Team (Late st Contact Info) Description 10/10/2024 Orders Only [facility] [address] [place], [place] [phone] Jolly London MD [address] [place], [place] [phone] Sensorineural hearing loss, bilateral (Primary Dx) Social [...] Description 05/27/2025 3:15 PM EST Office Visit [facility] [address] [place] [phone] Jolly London MD [address] [place] [address] 06/10/2025 2:00 PM EST Medication Management [facility] [address] [place] [address] Javier Benton, PharmD [address] [place] [address] Scheduled Referrals Name Type Priority Associated Diagnoses [...] documented as of this encounter Care Teams Global Climate Change Researcher Relationship Specialty Start Date End Date Jolly London MD [address] [place] [address] PCP - General Family Medicine 06/29/12 Javier Benton, PharmD [address] [place] [address] Pharmacist Internal Medicine 01/14/23 documented as of this encounter
--- OUTSIDE RECORDS SUMMARY | 2025-04-03 14:34 | XMS_ITS | Encounter Summary ---
Author Organization [employer] Address [address] [facility] 7t [place] [address] Care Team Providers Care Bridge Attacher Name Role Phone Jolly London MD Primary Care Provider [phone] Javier Benton PharmD Unavailable [phone] Reason for Visit * Reason Comments Med Refill Encounter Details Date Type Department Care Team ([facility] st Contact Info) Description 03/11/2024 Refill [facility] [address] [place], [place] [phone] Jolly London MD [address] [place], [place] [phone] Helicobacter pylori gastrointestinal tract infection Social History [...] Description 05/27/2025 3:15 PM EST Office Visit [address] [address] Jolly London MD [address] [place] [address] 06/10/2025 2:00 PM EST Medication Management [address] [address] Javier Benton, PharmD [address] [place] [address] documented as of this encounter Goals Goal [...] documented as of this encounter Care Teams Bridge Attacher Relationship Specialty Start Date End Date Jolly London MD [address] [place] [phone] PCP - General Family Medicine 06/29/12 Javier Benton, PharmD [address] [place] [address] [phone] Pharmacist Internal Medicine 01/14/23 documented as of this encounter
--- OUTSIDE RECORDS SUMMARY | 2025-04-03 14:34 | XMS_ITS | Encounter Summary ---
Author Organization [employer] Address [address] [facility] 7t [place] [address] Care Team Providers Care Stores Despatch Hand Name Role Phone Jolly London MD Primary Care Provider [phone] Javier Benton PharmD Unavailable [phone] Reason for Referral * Consultation (Routine) - Closed Specialty Diagnoses / Procedures Referred By Contac t Referred To Contact Otolaryngology Diagnoses Dizziness Sensorineural hearing loss, bilateral Jolly London MD [address] [place] [address] Phone: tel: fax: [facility] [address] Phone: tel: fax: Referral ID Status Reason Start Date Expiration Date V isits Requested Visits Authorized [id number] Closed Specialty Services Required 10/15/2024 10/15/2025 1 1 Encounter Details Date Type Department Care Team (Late st Contact Info) Description 10/10/2024 Orders Only [facility] [address] [place], [place] [phone] Jolly London MD [address] [place], [place] [phone] Dizziness (Primary Dx); Sensorineural hearing loss, bilateral [...] Description 05/27/2025 3:15 PM EST Office Visit [facility] [address] [place] [address] Jolly London MD [address] [place] [address] 06/10/2025 2:00 PM EST Medication Management [facility] [address] [place] [phone] Javier Benton, PharmD [address] [place] [address] Pending Results Name Type Priority Associated Diagnoses [...] 3:24 PM EDT) No Javier Benton, AreliD documented as of this encounter Visit Diagnoses Diagnosis Dizziness- Primary Dizziness and giddiness Sensorineural hearing loss, bilateral documented in this encounter Additional Health Concerns Assessment Noted Time PHQ-9 Depression Total Score: 1 08/13/19 25 3:11 PM EST documented as of this encounter Care Teams Stores Despatch Hand Relationship Specialty Start Date End Date Jolly London MD [address] [place] [address] PCP - General Family Medicine 06/29/12 Javier Benton, AreliD [address] [place] [address] Pharmacist Internal Medicine 01/14/23 documented as of this encounter
--- OUTSIDE RECORDS SUMMARY | 2025-04-03 14:35 | XMS_ITS | Clinical Summary ---
Author Organization [employer] Address [address] [place] [address] [address] [place] [address] Care Team Providers Care Strip Deburrer Name Role Phone Jolly Constantino MD Primary Care Provider [phone] Javier Benton PharmD Unavailable [phone] Allergies Active Allergy Reactions Criticality Noted Date [...] hyperglycemia, without long-term current use of insulin ([facility]) USE TO CHECK BLOOD SUGAR DIRECTED 100 each 5 5 Active furosemide (Lasix) 20 MG tablet Take 1 tablet (20 mg) by mouth Once per day. 90 tablet 3 5 10/11/19 26 Active FREESTYLE LITE test stripIndications: Type 2 diabetes mellitus with hyperglycemia, without long-term current use of insulin ([facility]) USE DIRECTED TO TEST BLOOD [...] (03/04/2025 8:41 AM EDT): - Seen in [facility] ED on 09/17/24, questionable - patient claims that he did not have vision problem. However, he is high-risk for CVA / TIA - continue ASA - continue optimizing chronic disease management - continue working on lifestyle modificaitons Assessment & Plan (11/19/2024 4:11 PM EDT): - Seen in [facility] ED on 09/17/24, questionable - patient claims that he did not have vision problem. However, he is high-risk for CVA / TIA - continue ASA - continue optimizing chronic disease management - continue working on lifestyle modificaitons Assessment & Plan (09/28/2024 9:47 AM EDT): - Seen in [facility] ED on 09/17/24, questionable - patient claims [...] delivery service. Patient tried once, but preferred [place]ican foods to typical Mongolian foods. Patient is willing to try again. - currently going to [employer] for lunch as a part of service from [facility]. - discussed with patient's resident care associate about getting a GENERAL SUPERVISOR who can cook for him and eat [...] anemia. Elevated ferritin level. - Seen by machining supervisor in July 2023 - monitor - Continue current iron supplementation Assessment & Plan (08/13/2024 3:53 PM EST): - Normocytic anemia. Elevated ferritin level. - Seen by machining supervisor in July 2023 - monitor - Continue current iron supplementation Assessment & Plan (04/26/2024 10:33 AM EDT): - Normocytic anemia. Elevated ferritin level. - Seen by machining supervisor in July 2023 - monitor - Continue current iron supplementation Assessment & Plan (03/07/2024 3:45 PM EDT): - Normocytic anemia. Elevated ferritin level. - Seen by machining supervisor in July 2023 - monitor - Continue current iron supplementation Assessment & Plan (01/25/2024 5:10 PM EDT): - Normocytic anemia. Elevated ferritin level. - Seen by machining supervisor in July 2023 - monitor - Continue current iron supplementation Assessment & Plan (10/18/2023 1:00 PM EDT): - Normocytic anemia. Elevated ferritin level. - Seen by machining supervisor in July 2023 - monitor - Continue current iron supplementation Assessment & Plan (06/22/2023 5:49 AM EST): - Normocytic anemia. Elevated ferritin. - Seen by machining supervisor on 05/13/23 - monitor - Continue current [...] healthier foods. Will refer him to [facility] department. Will write a letter [...] healthier foods. Will refer him to [facility] department. Will write a letter [...] 8:38 AM EDT): - Following with Urologist, [facility], last seen in November 2024 -Discontinued Imipramine. -Continue mirabegron -Recently given a sample of Gemtesa -Treatment Hx: Previously on oxybutynin 5 mg which was changed to mirabegron when he went to [place] and was seen by an urologist there. Previously on imipramine, which was recommended to discontinue due to anticholinergic effect. Assessment & Plan (11/19/2024 4:11 PM EDT): - Following with Urologist, [facility], last seen in Apr 2024 -Discontinued Imipramine. -Continue mirabegron -Recently given a sample of Gemtesa -Treatment Hx: Previously on oxybutynin 5 mg which was changed to mirabegron when he went to [place] and was seen by an urologist there. Previously on imipramine, which was recommended to discontinue due to anticholinergic effect. Assessment & Plan (08/13/2024 3:52 PM EST): - [facility], last seen in Apr 2024 -Discontinued Imipramine. -Continue mirabegron -Recently given a sample of Gemtesa -Treatment Hx: Previously on oxybutynin 5 mg which was changed to mirabegron when he went to [place] and was seen by an urologist there. Previously on imipramine, which was recommended to discontinue due to anticholinergic effect. Assessment & Plan (04/29/2024 6:49 AM EDT): - [facility] -Discontinued Imipramine. -Continue mirabegron -Recently given a sample of Gemtesa -Treatment Hx: Previously on oxybutynin 5 mg which was changed to mirabegron when he went to [place] and was seen by an urologist there. Previously on imipramine, which was recommended to discontinue due to anticholinergic effect. Assessment & Plan (01/25/2024 5:07 PM EDT): - [facility] last seen in November 2023 -Discontinued Imipramine. -Continue mirabegron -Treatment Hx: Previously on oxybutynin 5 mg which was changed to mirabegron when he went to [place] and was seen by an urologist there. Previously on imipramine, which was recommended to discontinue due to anticholinergic effect. Assessment & Plan (10/18/2023 1:22 PM EDT): - [facility] last seen in July 2023 -Discontinue Imipramine. -Continue mirabegron -Treatment Hx: Previously on oxybutynin 5 mg which was changed to mirabegron when he went to [place] and was seen by an urologist there. Previously on imipramine, which was recommended to discontinue due to anticholinergic effect. Assessment & Plan (06/22/2023 5:42 AM EST): - Following with [facility]rologist, [facility], last seen on 02/11/2023 -Continue Imipramine. -Continue mirabegron -Treatment Hx: Previously on oxybutynin 5 mg which was changed to mirabegron when he went to [place] and was seen by an urologist there. Assessment & Plan (02/21/2023 5:12 AM EDT): - Following with Urologist, [facility], last seen on 02/11/2023 -Continue Imipramine. -Continue myrbetriq. -Treatment Hx: Previously on oxybutynin 5 mg which was changed to Mybetriq when he went to [place] and was seen by an urologist there. Assessment & Plan (11/09/2022 5:06 PM EDT): Following with Urologist, last seen on 10/2022, requested mote of the visit and it is pending at this time -Continue Imipramine. -Continue myrbetriq. -Treatment Hx: Previously on oxybutynin 5 mg which was changed to Mybetriq when he went to [place] and was seen by an urologist. Assessment & Plan (07/04/2022 5:07 AM EST): -Continue Imipramine. -Continue myrbetriq. -Treatment Hx: Previously on oxybutynin 5 mg which was changed to Mybetriq when he went to [place] and was seen by an urologist. Hypertension [...] in 1992. s/p prostatectomy in 1992 in [place]. [facility]rologist: [facility], last seen in [...] in 1992. s/p prostatectomy in 1992 in [place]. Urologist: [facility], last seen in [...] in 1992. s/p prostatectomy in 1992 [place] Urologist: [facility], last seen in Apr 2024 [...] in 1992. s/p prostatectomy [place] 1992 [place] Urologist: [facility], last seen in Apr 2024 [...] in 1992. s/p prostatectomy [place] 1992 [place] Urologist: [facility], last seen in Apr 2024 [...] in 1992. s/p prostatectomy in 1992 in [place] Urologist: [facility], last seen in November 2023 [...] in 1992. s/p prostatectomy in 1992 [place] Urologist: [facility], last seen in [...] in 1992. s/p prostatectomy in 1992 [place] Urologist: Dr. Brush, last seen in Apr [...] in 1992. s/p prostatectomy in 1992 in [place]. Urologist: Dr. Brush, last seen in 10/2022, [...] in 1992. s/p prostatectomy in 1992 in [place]. Urologist: [facility], last seen in January 2023 Hx hypogonadism, neurogenic bladder, and recurrent UTI last UTI in 10/2022 last PSA 0.7 in 10/2022, increased from previous PSA Abd/pelvis CT recently showed no sign of recurrence per specialist Continue current treatment plan. Assessment & Plan (10/18/2023 1:23 PM EDT): Dx in 1992. s/p prostatectomy [place] 1992 [place] [facility], [facility] in May 2023 Hx [...] EDT): >>ASSESSMENT AND PLAN FOR PROSTATE CANCER ([facility]) WRITTEN ON 06/22/2023 12:44 PM BY JOLLY CONSTANTINO MD Dx in 1992. s/p prostatectomy in 1992 in [place]. Urologist: [facility], last seen in May 2023 Hx [...] appt with urologist and radiation oncologist Called [facility] and requested an assistance in rescheduling Bone Scan appt and giving instruction in Nigerien. The transportation security officer has kindly agreed to do so. >>ASSESSMENT AND PLAN FOR HISTORY OF PROSTATE CANCER WRITTEN ON 06/22/2023 12:44 PM BY JOLLY CONSTANTINO MD Dx in 1992. s/p prostatectomy in 1992 [place] [facility] last seen in May 2023 Hx [...] appt with urologist and radiation oncologist Called [facility] and requested an assistance in rescheduling Bone Scan appt and giving instruction in Nigerien. The transportation security officer has kindly agreed to do so. Resolved Problems Problem Noted Date Diagnosed Date Resolved Date Poor appetite 04/29/2024 09/28/2024 Assessment & Plan (04/29/2024 7:01 AM EDT): - patient may benefit from more socialization - continue periodic assessment for depression / dementia Gastroesophageal reflux disease 01/07/2016 07/04/2022 Helicobacter pylori gastroin testinal tract infection 01/07/2016 01/25/2024 Encounters Date Type Department Care Team Description 04/03/[address] [address] Kourtney Olguin, Marc 04/03/2025 Orders Only GENERIC EXTERNAL DATA DEPARTMENT Provider, Generic External Data 04/03/[address] [address] Jolly Constantino MD chart prep 03/28/2025 Patient Outreach [address] [address] Jolly Constantino MD Transition Of Care (Tcm) (HDF cheduled ) 03/28/[address] [address] Jolly Constantino MD Hospital Follow-up 03/22/2025 Orders Only GENERIC EXTERNAL DATA DEPARTMENT Provider, Generic External Data 03/11/2025 Results Follow-Up [address] [address] Abdomen Pelvis w/ Contrast 03/11/2025 Orders Only GENERIC EXTERNAL DATA DEPARTMENT Provider, Generic External Data 02/25/2025 3:00 PM EDT Office Visit [address] [address] Jolly Constantino MD Primary hypertension (Primary Dx); Type 2 diabetes mellitus with hyperglycemia, without long-term current use of insulin ([facility]); Prostate cancer ([facility]); Right buttock pain; Recurrent UTI; Dysuria; Neurogenic bladder; Dizziness; TIA (transient ischemic attack) 02/25/2025 Travel 02/22/2025 Telephone [facility] [address] [place] [phone] Jolly Constantino MD chart prep 02/19/[address] [address] Jolly Constantino MD Dyslipidemia 02/15/2025 Patient Outreach [address] [phone] Jolly Constantino MD Pre-visit Planning (SDOH screening was completed on 11/19/2024) 02/05/2025 Orders Only [address] [phone] Jolly Constantino MD Primary hypertension (Primary Dx); Type 2 diabetes mellitus with hyperglycemia, without long-term current use of insulin ([facility]) 02/05/[address] [address] Jolly Constantino MD 01/02/2025 Travel 01/01/[address] [phone] Jolly Constantino MD February recall from Last 3 Months Immunizations Immunization Administration [...] Description 05/27/2025 3:15 PM EST Office Visit [facility] [address] [place] [address] Jolly Constantino MD [address] [place] [phone] 06/10/2025 2:00 PM EST Medication Management [facility] [address] [place] [phone] Javier Benton, PharmD [address] [place] [phone] Health Maintenance Due Date Last Done Comments [...] 09/17/2025 09/17/2024, 01/15, 02/22/2023, Additional history exists SDOH Screening 11/19/2025 [...] Blood Pressure 144/70( 025 3:24 PM EDT) Javier Mike PharmD Procedures Procedure Name Priority Date/Time Associated Diagnosis Comments GLUCOSE, WHOLE BLOOD Routine 04/03/2025 1:08 PM EDT URINALYSIS, COMPLETE, WITH REFLEX TO CULTURE Routine 04/03/2025 11:59 AM EDT SARS COV2/INFLUENZA A/B AND RSV RNA QL NAAT Routine 04/03/2025 11:59 AM EDT GLUCOSE, WHOLE BLOOD Routine 03/22/2025 2:59 PM EDT XR CHEST 1 VIEW Routine 03/22/2025 1:15 PM EDT URINALYSIS WITH REFLEX MICROSCOPIC Routine 03/22/2025 1:13 PM EDT SED RATE BY MODIFIED WESTERGREN Routine 03/22/2025 1:05 PM EDT C-REACTIVE PROTEIN Routine 03/22/2025 1: 05 PM EDT COMPREHENSIVE METABOLIC PANEL Routine 03/22/2025 1:05 PM EDT CBC WITH AUTO DIFFERENTIAL Routine 03/22/2025 1:[address] LUMBAR SPINE WO CONTRAST Routine 03/22/2025 11:[address] ABDOMEN PELVIS W CONTRAST Routine 03/11/2025 3:43 PM EDT URINALYSIS WITH REFLEX MICROSCOPIC Routine 03/11/2025 3:23 PM EDT ALBUMIN, RANDOM URINE W/CREATININE Routine 02/27/2025 2:39 PM EDT Type 2 diabetes mellitus with hyperglycemia, without long-term current use of insulin ([facility]) POCT GLYCOSYLATED HEMOGLOBIN (HGB A1C) Routine 02/25/2025 3:17 PM EDT Type 2 diabetes mellitus with hyperglycemia, without long-term current use of insulin ([facility]) POCT GLUCOSE Routine 02/25/2025 3:16 PM EDT Type 2 diabetes mellitus with hyperglycemia, without long-term current use of insulin ([facility]) XR HIP RIGHT WITH PELVIS 1 VIEW Routine 02/20/2025 10:50 AM EDT LIPID PANEL, STANDARD Routine 09/17/2024 1:26 PM EST PANORAMIC RADIOGRAPHIC IMAGE Routine 09/05/2024 1:30 PM EST PERIODIC ORAL EVALUATION - ESTABLISHED PATIENT Routine 09/05/2024 1:30 PM EST HM DIABETES EYE EXAM Routine 12/08/2023 from Last 3 Months or Most Recently Relevant to Health Maintenance Results * (ABNORMAL) Glucose, Whole Blood (04/03/2025 1:08 PM EDT) Only the most recent of2 resultswithin the time period is included. Glucose, Whole Blood 163(H) 60 - 115 mg/dL [facility] Comment:METER #: [id number] 04/03/2025 1:08 PM EDT 04/03/2025 1:11 PM EDT us Generic External Data Provider LAB BLOOD ORDERAB LES Final Result [facility] [address] [place] [phone] * (ABNORMAL) Urinalysis, Complete, with Reflex to Culture (04/03/2025 11:59 AM EDT) Color Urine Yellow [facility] Appearance Urine Clear [facility] PH 8.5 5.0 - 9.0 [facility] Glucose Urine UA Negative Negative mg/dL [facility] Urine Blood Negative Negative [facility] Specific [place] - Urine 1.015 1.005 - 1.025 [facility] Urine Protein 30 (1+)(A) Neg-Trace mg/dL [facility] Urine Ketones Trace Negative mg/dL [facility] Nitrite Urine Negative Negative [facility] Leukocyte Esterase Urine Trace(A) Negative [facility] RBC Urine 0-2 0 - 2 /HPF [facility] Urine WBC 0-5 0 - 5 /HPF [facility] Urine Squamous Epithelial Cell 3-5 0 - 2 /HPF [facility] Urine Bacteria Trace None Seen [facility] Hyaline Casts, Urine 3-5 0 - 2 /LPF [facility] 04/03/2025 11:5 9 AM EDT 04/03/2025 12:03 PM EDT Narrative [facility] - 04/03/2025 12:12 PM EDT [id number], Clean Catch us Generic External Data Provider LAB URINE ORDERAB LES Final Result [facility] [address] [place] [phone] * SARS-CoV-2 RNA, Influenza A/B, and RSV RNA, Ql NAAT (04/03/2025 11:59 AM EDT) Influenza A PCR NEGATIVE Negative [facility] Influenza B PCR NEGATIVE Negative [facility] Resp Syncy Virus RNA Qual PCR NEGATIVE Negative [facility] SARS COV2 PCR NEGATIVE Negative [facility] Comment:All test results mus t [...] use by authorized laboratories.Testing performed on the [employer] GeneXpert utilizingreal-time RT-PCR.All SARS CoV2 and positive influenza A/B results arereported to [facility]. 04/03/2025 11:5 9 AM EDT 04/03/2025 12:03 PM EDT us Generic External Data Provider LAB MICROBIOLOGY - GENERAL ORDERABLES Final Result [facility] [address] [place] [phone] * XR Chest 1 View (03/22/2025 1:15 PM EDT) Anatomical Region Laterality Modality Chest Radiographic Edilia ging 03/22/2025 1:15 PM EDT Narrative 03/22/2025 1:30 PM EDT [address] [address] XRay Report Signed Patient: Toni Keys MR#: [id number] : 1935 Acct:[id number] Age/Sex: 89 / M ADM Date: 03/22/25 Loc: .ED Attending Dr: Ordering Physician: Fadia Terry Date of Service: 03/22/25 Procedure(s): XR chest 1V Accession Number(s): [id number] cc: Fadia Terry; Jolly Constantino MD Reason for Exam: Surgical planing EXAMINATION: XR CHEST CLINICAL INFORMATION: Surgical planing COMPARISON: September 17, 2024 TECHNIQUE: Frontal view of the chest was obtained. FINDINGS: Pulmonary reticular pattern more conspicuous in the inferior right perihilar region. No hyperinflation. No pleural effusion or pneumothorax. Cardiomediastinal silhouette size is normal. Calcified plaque thoracic aorta. S-shaped curvature of the mid thoracic spine. Multilevel thoracic spondylosis. Degenerative changes in the acromioclavicular joints. Osteopenia versus osteoporosis. XR/XR chest 1V IMPRESSION: Consider chronic interstitial lung disease without acute airspace disease. Electronically signed by: Alin Hurt MD 03/22/2025 01:28 PM EDT RP Dictated By: Alin Ko MD Signed By: <Electronically signed by Alin Corrales MD in OV> 03/22/25 1328 DD/ 1315 TD/TT: 03/22/25 1323 Software Sales Representative: Procedure Note Donotuseinterpreter, Image - 03/22/2025 [place] [address] XRay Report Signed Patient: Manuel Keysolito MR#: [id number] : 8Acct:[id number] Age/Sex: 89 / MADM Date: 03/22/25 Loc: HO.ED Attending Dr: Ordering Physician: Fadia Terry Date of Service: 03/22/25 Procedure(s): XR chest 1V Accession Number(s): [id number] cc: Fadia Terry; Jolly Constantino MD Reason for Exam: Surgical planing EXAMINATION: XR CHEST CLINICAL INFORMATION: Surgical planing COMPARISON: September 17, 2024 TECHNIQUE: Frontal view of the chest was obtained. FINDINGS: Pulmonary reticular pattern more conspicuous in the inferior right perihilar region. No hyperinflation. No pleural effusion or pneumothorax. Cardiomediastinal silhouette size is normal. Calcified plaque thoracic aorta. S-shaped curvature of the mid thoracic spine. Multilevel thoracic spondylosis. Degenerative changes in the acromioclavicular joints. Osteopenia versus osteoporosis. XR/XR chest 1V IMPRESSION: Consider chronic interstitial lung disease without acute airspace disease. Electronically signed by: Alin Hurt MD 03/22/2025 01:28 PM EDT Dictated By: Alin Ko MD Signed By: <Electronically signed by Alin Corrales MDin OV> 03/22/25 1328 DD/ 1315 TD/TT: 03/22/25 1323 Software Sales Representative: [facility] External Provider IMG XR PROCEDURES Final Result * Urinalysis w/reflex microscopic (03/22/2025 1:13 PM EDT) Only the most recent of2 resultswithin the time period is included. Color Urine Yellow [facility] Appearance Urine Clear [facility] PH >=9.0 5.0 - 9.0 [facility] Glucose Urine UA Negative Negative mg/dL [facility] Urine Blood Negative Negative [facility] Specific [place] - Urine 1.010 1.005 - 1.025 [facility] Urine Protein Negative Neg-Trace mg/dL [facility] Urine Ketones Negative Negative mg/dL [facility] Nitrite Urine Negative Negative [facility] Leukocyte Esterase Urine Negative Negative [facility] 03/22/2025 1:13 PM EDT 03/22/2025 1:18 PM EDT Narrative [facility] - 03/22/2025 1:24 PM EDT [id number], Clean Catch Generic External Data Provider LAB URINE ORDERAB LES Final Result [facility] [address] [place] [phone] * (ABNORMAL) CBC auto differential (03/22/2025 1:05 PM EDT) White Blood Count 8.4 4.8 - 10.8 X10*3/uL [facility] Red Blood Count 3.68(L) 4.60 - 5.80 X10*6/uL [facility] Hemoglobin 10.2(L) 14.0 - 18.0 g/dl [facility] Hematocrit 30.1(L) 42.0 - 52.0 % [facility] Mean Corpuscular Volume 81.8 80.0 - 98.0 fL [facility] Mean Corpuscular Hemoglobin 27.7 27.0 - 33.0 pg [facility] Mean Corpuscular HGB Conc 33.9 31.0 - 36.0 g/dl [facility] Red Cell Distribution Width 17.0(H) 11.0 - 16.0 % [facility] Platelet Count 264 160 - 400 X10*3/uL [facility] Mean Platelet Volume 9.5 9.4 - 12.4 fL [facility] Neutrophils Percent Auto 81.7(H) 45 - 73 % [facility] Imm Gran Pct Auto 0.7(H) 0.0 - 0.4 % [facility] Lymphocytes Percent Auto 5.7(L) 20 - 40 % [facility] Monocytes Percent Auto 10.4 2 - 11 % [facility] Eosinophils Percent Auto 1.4 0 - 4 % [facility] Basophils Percent Auto 0.1 0 - 2 % [facility] NRBC Pct Auto 0.0 0.0 - 0.2 /100WBC [facility] Neutrophils Absolute Auto 6.8 2.0 - 8.3 x10*3/uL [facility] Imm Gran Abs Auto 0.06(H) 0.00 - 0.03 X10*3/uL [facility] Lymphocytes Absolute Auto 0.5(L) 1.2 - 4.9 X10*3/uL [facility] Monocytes Absolute Auto 0.9 0.1 - 1.2 X10*3/uL [facility] Eosinophils Absolute Auto 0.1 0.0 - 0.4 X10*3/uL [facility] Basophils Absolute Auto 0.0 0.0 - 0.2 X10*3/uL [facility] NRBC Abs Auto 0.000 0.0 - 0.012 X10*3/uL [facility] 03/22/2025 1:05 PM EDT 03/22/2025 1:08 PM EDT Generic External Data Provider LAB BLOOD ORDERAB LES Final Result Performing Organization Address [facility] Co de Phone Number [facility] [address] [place] [phone] * (ABNORMAL) Sed Rate by Modified Bennieergren (03/22/2025 1:05 PM EDT) Pathologist [facility] Erythrocyte Sedimentation Rate 69(H) 0 - 15 MM/HR [facility] Comment:Patients with polycy themia and many hemoglobin abnormalitiesmay have depressed sed rates whereas patients with anemiamay have elevated sed rates. 03/22/2025 1:05 PM EDT 03/22/2025 1:32 PM EDT Generic External Data Provider LAB BLOOD ORDERAB LES Final Result Performing Organization Address [facility] de Phone Number [facility] [address] [place] [phone] * (ABNORMAL) C-reactive Protein (03/22/2025 1:05 PM EDT) [facility] C Reactive Protein 2.90(H) < or = 0.50 mg/dL [facility] 03/22/2025 1:05 PM EDT 03/22/2025 1:08 PM EDT Generic External Data Provider LAB BLOOD ORDERAB LES Final Result Performing Organization Address [facility] Co de Phone Number [facility] [address] [place] [phone] * (ABNORMAL) Comprehensive Metabolic Panel (03/22/2025 1:05 PM EDT) [facility] Sodium 139 135 - 145 mmol/L [facility] Potassium 3.8 3.3 - 5.1 mmol/L [facility] Chloride 106 96 - 108 mmol/L [facility] Carbon Dioxide 24 22 - 29 mmol/L [facility] Anion Gap 13 12 - 20 [facility] Urea Nitrogen (BUN) 23(H) 9 - 16 mg/dL [facility] Creatinine, Serum 1.08 0.5 - 1.4 mg/dL [facility] Creatinine Clr Calc Pharmacy 45.0 [facility] Comment:eGFR (calculated fro m the MDRD study equation) and eCrCl(calculated from the Cockcroft-Gault equation) are based ondifferent parameters and may not yield comparable results.If eCrCl result is absurd, please check patient'sheight/weight. Estimated Glomerular Filt Rate >60 [facility] Comment:Chronic Kidney Disea se: Estimated GFR < 60 mL/min/1.03r1Zrweaj Kidney Disease: Estimated GFR < 15 mL/min/1.73m2 Glucose 170(H) 60 - 115 mg/dL [facility] Calcium 8.9 8.4 - 10.2 mg/dL [facility] Bilirubin, Total 0.7 0.0 - 1.0 mg/dL [facility] Aspartate Amino Transferase 15 5 - 37 U/L [facility] Alanine Aminotransferase 10 0 - 40 U/L [facility] Total Protein 6.5 6.5 - 8.0 g/dL [facility] Albumin Level 3.8 3.5 - 5.0 g/dL [facility] Alkaline Phosphatase 111 39 - 117 U/L [facility] 03/22/2025 1:05 PM EDT 03/22/2025 1:08 PM EDT us Generic External Data Provider LAB BLOOD ORDERAB LES Final Result [facility] [address] [place] [phone] * CT Lumbar Spine w/o Contrast (03/22/2025 11:41 AM EDT) Anatomical Region Laterality Modality Spine, L-spine Computed Tomogra phy 03/22/2025 11:4 1 AM EDT Narrative 03/22/2025 12:36 PM EDT [address] [address] [address] Scan Report Signed Patient: Toni Keys MR#: [id number] : 1935 Acct:[id number] Age/Sex: 89 / M ADM Date: 03/22/25 Loc: HO.ED Attending Dr: Ordering Physician: Fadia Terry Date of Service: 03/22/25 Procedure(s): CT lumbar spine wo IV con Accession Number(s): [id number] cc: Fadia Terry; Jolly Constantino MD Report Number: [id number]: Total DLP = 429.00 mGy-cm Reason for Exam: Lower back pain fall 5 days ago EXAMINATION: CT LUMBAR SPINE WITHOUT CONTRAST CLINICAL INFORMATION: Low back pain after falling 5 days ago COMPARISON: March 11, 2025 and February 17, 2024 TECHNIQUE: Axial imaging was performed from mid T12 through the lower sacrum coccygeal region without IV contrast. Coronal and sagittal reformatted images were generated from the original axial data set. DLP: 528 mGY*cm ALARA: The examination used one or more of the following radiation dose reduction techniques: Automated exposure control, iterative reconstruction, and/or adjustment of mA and/or kV. FINDINGS: Moderate multifocal arterial vascular calcifications are noted. Renal cortical thinning is noted. There is an oblique fracture involving the superior left sacrum extending from the lateral margin of the left L5-S1 facet joint to the upper SI joint 17 mm caudal of the upper SI joint. Fracture is best appreciated on the coronal series. There are 5 yco-xvp-qmorgyq lumbar segments. There is stable moderate superior endplate compression fracture of L3 which has been present since at least February 2024. There is stable multilevel disc space narrowing at L5-S1 with vacuum phenomena and calcification of the anterior disc annulus Non-marginal osteophytes are present at the lumbar vertebral endplates. CT/CT lumbar spine wo IV con IMPRESSION: There is an acute fracture of the superior left sacrum extending to the SI joint. There is a chronic moderate compression fracture of L3. Electronically signed by: Maxim Ellis MD 03/22/2025 12:33 PM EDT RP Dictated By: Maxim Ellis MD Signed By: <Electronically signed by Maxim Ellis MD in OV> 03/22/25 1233 DD/ 1141 TD/TT: 03/22/25 1151 Software Sales Representative: Procedure Note Donotuseinterpreter, Image - 03/22/[address] [address] [address] Scan Report Signed Patient: Toni Keys MR#: [id number] : 8Acct:[id number] Age/Sex: 89 / MADM Date: 03/22/25 Loc: .ED Attending Dr: Ordering Physician: Fadia Terry Date of Service: 03/22/25 Procedure(s): CT lumbar spine wo IV con Accession Number(s): [id number] cc: Fadia Terry; Jolly Constantino MD Report Number: [id number]: Total DLP = 429.00 mGy-cm Reason for Exam: Lower back pain fall 5 days ago EXAMINATION: CT LUMBAR SPINE WITHOUT CONTRAST CLINICAL INFORMATION: Low back pain after falling 5 days ago COMPARISON: March 11, 2025 and February 17, 2024 TECHNIQUE: Axial imaging was performed from mid T12 through the lower sacrum coccygeal region without IV contrast. Coronal and sagittal reformatted images were generated from the original axial data set. DLP: 528 mGY*cm ALARA: The examination used one or more of the following radiation dose reduction techniques: Automated exposure control, iterative reconstruction, and/or adjustment of mA and/or kV. FINDINGS: Moderate multifocal arterial vascular calcifications are noted. Renal cortical thinning is noted. There is an oblique fracture involving the superior left sacrum extending from the lateral margin of the left L5-S1 facet joint to the upper SI joint 17 mm caudal of the upper SI joint. Fracture is best appreciated on the coronal series. There are 5 hhs-sde-egxasnc lumbar segments. There is stable moderate superior endplate compression fracture of L3 which has been present since at least February 2024. There is stable multilevel disc space narrowing at L5-S1 with vacuum phenomena and calcification of the anterior disc annulus Non-marginal osteophytes are present at the lumbar vertebral endplates. CT/CT lumbar spine wo IV con IMPRESSION: There is an acute fracture of the superior left sacrum extending to the SI joint. There is a chronic moderate compression fracture of L3. Electronically signed by: Maxim Ellis MD 03/22/2025 12:33 PM EDT RP Dictated By: Maxim Ellis MD Signed By: <Electronically signed by Maxim Ellis MD in OV> 03/22/25 1233 DD/ 1141 TD/TT: 03/22/25 1151 Software Sales Representative: [facility] External Provider IMG CT PROCEDURES Final Result * CT Abdomen Pelvis w/ Contrast (03/11/2025 3:43 PM EDT) Anatomical Region Laterality Modality Body, Pelvis, Abdomen Computed T omography 03/11/2025 3:43 PM EDT Narrative 03/11/2025 4:40 PM EDT [place] [address] CT Scan Report Signed Patient: Toni Keys MR#: [id number] : 1935 Acct:[id number] Age/Sex: 89 / M ADM Date: 03/11/25 Loc: HO.ED Attending Dr: Ordering Physician: Kira Lowe NP Date of Service: 03/11/25 Procedure(s): CT abdomen pelvis w IV con Accession Number(s): [id number] cc: Jolly Constantino MD; Kira Lowe NP Report Number: [id number]: Total DLP = 528.00 mGy-cm EXAMINATION: CT [...] 03/11/25 1637 DD/ 1543 TD/TT: 03/11/25 1615 Software Sales Representative: Procedure Note Donotcorneliusinterpreter, Image - 03/11/[address] [address] [address] Scan Report Signed Patient: Toni Keys MR#: [id number] : 8Acct:[id number] Age/Sex: 89 / MADM Date: 03/11/25 Loc: HO.ED Attending Dr: Ordering Physician: Kira Lowe NP Date of Service: 03/11/25 Procedure(s): CT abdomen pelvis w IV con Accession Number(s): [id number] cc: Jolly Constantino MD; Kira Lowe NP Report Number: [id number]: Total DLP = 528.00 mGy-cm EXAMINATION: CT [...] Maxim Ellis MD 03/11/2025 04:37 PM EDT RP Dictated By: Maxim Ellis MD Signed By: <Electronically signed by Maxim Ellis MD in OV> 03/11/25 1637 DD/ 1543 TD/TT: 03/11/25 1615 Software Sales Representative: [facility] External Provider IMG CT PROCEDURES Final Result * Albumin, Random Urine W/Creatinine (02/27/2025 2:39 PM EDT) Creatinine, Urine 74.26 mg/dL [facility] Microalbumin Urine 7.0 mg/L [facility] Microalbum Creatinine Ratio Ur 9.4 <30 ug/mg cr [facility] Comment:Albumin/Creatinine R atio Reference Ranges: Normal: < 30 ug/mg creatinine Microalbuminuria: 30 - 300 ug/mg creatinineClinical Albuminuria: > 300 ug/mg creatinine Urine 02/27/2025 2:39 PM EDT 02/27/2025 4:36 PM EDT Jolly Constantino MD LAB URINE ORDERABLES Final Resul t [facility] [address] [place] [phone] * (ABNORMAL) POCT glycosylated hemoglobin (Hgb A1c) (02/25/2025 3:17 PM EDT) Hemoglobin A1C 7.7(A) 4.0 - 5.7 % QC Media Lot # [id number] Lot# Expiration Date , Blood Capillary blood specimen / Unknown 02/25/2025 3:17 PM EDT Jolly Constantino MD POINT OF CARE TEST ENTER/EDIT OR DERABLES Final Result * (ABNORMAL) POCT glucose manually resulted (02/25/2025 3:16 PM EDT) Glucose Blood, POC 203(A) 60 - 200 mg/dL QC Media Lot # [id number] Lot# Expiration Date , Blood Capillary blood specimen / Unknown 02/25/2025 3:16 PM EDT Jolly Constantino MD POINT OF CARE TEST ENTER/EDIT OR DERABLES Final Result * XR Hip right with Pelvis 1 view (02/20/2025 10:50 AM EDT) Anatomical Region Laterality Modality Lower Extremities, Hip Bilateral Radiograp hic Imaging 02/20/2025 10:5 0 AM EDT Narrative 02/20/2025 11:58 AM EDT [place] [address] XRay Report Signed Patient: Manuel Keysolito MR#: [id number] : 1935 Acct:[id number] Age/Sex: 89 / M ADM Date: 02/20/25 Loc: .ED Attending Dr: Ordering Physician: Moira Sanchez Date of Service: 02/20/25 Procedure(s): XR hip RT w PEL1V Accession Number(s): [id number] cc: Moira Sanchez; Jolly Constantino MD EXAMINATION: XR HIP, RIGHT CLINICAL INFORMATION: [...] 02/20/25 1155 DD/ 1050 TD/TT: 02/20/25 1149 Software Sales Representative: Procedure Note Donotuseinterpreter, Image - 02/20/[address] [address] XRay Report Signed Patient: Toni Keys MR#: [id number] : 8Acct:[id number] Age/Sex: 89 / MADM Date: 02/20/25 Loc: HO.ED Attending Dr: Ordering Physician: Moira Sanchez Date of Service: 02/20/25 Procedure(s): XR hip RT w PEL1V Accession Number(s): [id number] cc: Moira Sanchez; Jolly Constantino MD EXAMINATION: XR HIP, RIGHT CLINICAL INFORMATION: [...] 02/20/25 1155 DD/ 1050 TD/TT: 02/20/25 1149 Software Sales Representative: [facility] External Provider IMG XR PROCEDURES Final Result * Lipid Panel, Standard (09/17/2024 1:26 PM EST) Triglycerides 120 <150 mg/dL [facility] Comment:Desirable Triglyceri de: less than 150 mg/dLBorderline High Triglyceride 150-199 mg/dLHigh Triglyceride: 200-499 mg/dLVery High Triglyceride: greater than or equal to 5OO mg/dL Cholesterol 113 <200 mg/dL [facility] Comment:Desirable Cholestero l: less than 200 mg/dLBorderline High Cholesterol: 200-239 mg/dLHigh Cholesterol: greater than 239 mg/dL LDL Cholesterol Calculated 47 <100 mg/dL [facility] Comment:Desirable LDL: less than 100 mg/dLNear Optimal/Above Optimal LDL: 110- 129 mg/dLBorderline High LDL: 130-159 mg/dLHigh LDL: 160-189 mg/dLVery High LDL: greater than or equal to 190 mg/dL HDL Cholesterol 42 >40 mg/dL [facility] Comment:Desirable HDL: great er than 40 mg/dL Note: This HDL assay may give artificially low results in patients with liver disease. 09/17/2024 1:26 PM EST 09/17/2024 1:34 PM EST Generic External Data Provider LAB BLOOD ORDERAB LES Final Result [facility] [address] [place] [phone] * Diabetes Eye Exam (12/08/2023) Eye Exam Normal Normal 12/08/2023 us Historical Provider HEALTH MAINTENANCE Final Result from Last 3 Months or Most Recently Relevant to Health Maintenance Insurance [facility] RESIDENTIAL OPTIONS (O D-SNP) [facility] Care Teams Strip Deburrer Relationship Specialty Start Date End Date Jolly Constantino MD [address], [place] [phone] PCP - General Family Medicine 06/29/12 Javier Benton, AreliD [address], [place] [phone] Pharmacist Internal Medicine 01/14/23
--- OUTSIDE RECORDS SUMMARY | 2025-04-03 14:35 | XMS_ITS | Encounter Summary ---
Author Organization [employer] Address [address] [facility] [address] [place] [address] Care Team Providers Care Automation Control Technician Name Role Phone Jolly London MD Primary Care Provider [phone] Javier Benton PharmD Unavailable [phone] Encounter Details Date Type Department Care Team (Late st Contact Info) Description 06/07/2022 Abstract [facility] [address] [place] [phone] Jolly London MD [address] [place] [phone] Social History Tobacco Use Types Packs/Day Years [...] Description 05/27/2025 3:15 PM EST Office Visit [facility] [address] [place] [phone] Jolly London MD [address] [place] [phone] 06/10/2025 2:00 PM EST Medication Management [facility] [address] [place] [phone] Javier Benton, PharmD [address] [place] [phone] documented as of this encounter Visit Diagnoses Not on filedocumented in this encounter Care Teams Automation Control Technician Relationship Specialty Start Date End Date Jolly London MD [address], [place] [phone] PCP - General Family Medicine 06/29/12 Javier Benton, Marc [address] [place] [address] Pharmacist Internal Medicine 01/14/23 documented as of this encounter
--- NOTE | 2025-04-03 16:27 | PC.NURSE ---
patient c/o 02/24 back and rt leg pain, provider notified, awaiting new orders
--- NOTE | 2025-04-03 16:29 | MHC.EDTECH ---
pt was 1 assist to the bathroom with a walker and voided 1x and had a dark green loose bowel movement
--- NOTE | 2025-04-03 16:39 | PC.NURSE ---
pain medication pt currently has 8/10 pain, provider Jesusita Wesley ordered tylenol for a lower pain scale- she was contacted about the patients pain level being higher than the pain scale and this nurse was directed to administer the tylenol for the patients pain. pt will be medicated with the tylenol per request of provider.
[2025-04-03 16:49] LABS: Glucose, Whole Blood 229 mg/dL (60-115)
--- NOTE | 2025-04-03 18:29 | PC.NURSE ---
notified pharmacy for missing medication for patient
[2025-04-03 20:11] VITALS: BP 124/53; PULSE 83; RESP 18; TEMP 37.6; O2SAT 97
[2025-04-03] MEDS: Ferrous Sulfate 324 MG TABLET.DR PO (20:29)
[2025-04-03] MEDS: Lidocaine 4 % Patch ADH..PATCH 1 PATCH TRANSDERMA (21:18)
--- NOTE | 2025-04-04 03:53 | PC.NURSE ---
Pt resting comfortably in bed. Pt reports able to sleep with Lidoderm patch in place over lower back for pain. Pt reports good effect from patch and has been using a urinal to urinate. Pt has no questions or concerns at this time.
[2025-04-04 06:12] VITALS: BP 127/62; PULSE 82; RESP 18; TEMP 36.4; O2SAT 96
--- NOTE | 2025-04-04 07:19 | PC.NURSE ---
Addendum entered by Dorina Patel RN 04/04/25 07:27: [facility] and patient would like to return to [facility]. Addendum entered by Dorina Patel RN 04/04/25 07:21: Patient is an 89 year old male with a history of prostate cancer s/p radiation therapy in 08/2024, DM, HTN, and sacral fracture on 03/23/2025 evaluated by [facility] who recommended no intervention and protected weight bearing presenting to the emergency department today with difficulty ambulating at home. Patient alert and oriented. Lungs essentially clear bilat. Repirations even and non-labored. Positive pedal pulses with no edema. Patient denies any pain at this time, but experiences pain with movement in the bed. Original Note: Medical History Tubular adenoma of colon Neurogenic bladder Chronic anemia HTN (hypertension) Prostate cancer Hypercholesterolemia Diabetes mellitus Renal cyst Choledocholithiasis Diverticulosis
[2025-04-04 07:33] LABS: Glucose, Whole Blood 161 mg/dL (60-115)
--- NOTE | 2025-04-04 08:32 | MHC.CM.ED ---
Addendum entered by Kylee Stoddard 04/04/25 12:23: Insurance auth has been obtained. Patient can leave at 1230pm. [facility] booked. [facility] with chart. Patient, Angelika AGARWAL and Jesusita HOLLIS aware. Original Note: [facility] and [facility] are able to offer a bed. Multiple other facilities are still reviewing. Met with patient in regards to discharge planning. Patient accepts bed at [facility]. [facility] is in the process of obtaining ins auth. Continue to monitor for d/c needs.
[2025-04-04] MEDS: Aspirin Enteric Coated 81 MG TABLET.DR PO (09:00)
[2025-04-04] MEDS: Ferrous Sulfate 324 MG TABLET.DR PO (09:00)
[2025-04-04] MEDS: Lidocaine 4 % Patch ADH..PATCH 2 PATCH TRANSDERMA (09:00)
[2025-04-04 13:20] VITALS: BP 127/62; PULSE 82; RESP 18; TEMP 36.4; O2SAT 96
== END 2025-04-04 13:31 | disposition skilled nursing facility (03) ==
PROVIDERS: Physician Assistant Medical; Emergency Provider Emergency Medicine; PCP Family Medicine
DX: S32.10XA Unspecified fracture of sacrum, initial encounter for closed fracture (principal); M54.50 Low back pain, unspecified; R26.2 Difficulty in walking, not elsewhere classified; E11.9 Type 2 diabetes mellitus without complications; Z79.899 Other long term (current) drug therapy; Z79.84 Long term (current) use of oral hypoglycemic drugs; Z03.818 Encounter for observation for suspected exposure to other biological agents ruled out; X58.XXXA Exposure to other specified factors, initial encounter; Y93.9 Activity, unspecified; Y92.9 Unspecified place or not applicable; Y99.8 Other external cause status
CPT/HCPCS: 36415; 80053; 81001; 82947; 83735; 85025; 87637; 97161; 99285

== ENCOUNTER 2025-05-13 13:17 | Emergency (ER) | payer OTHER, SELFPAY ==
--- NOTE | ~2025-05-13 | US_ITS ---
CLINICAL HISTORY: leg edema Bilateral lower extremity venous duplex ultrasound. Color and spectral waveform analysis. Comparison: None provided Findings: Deep veins are compressible with flow and augmentation. No popliteal cyst. No significant adenopathy. Impression: No evidence for DVT This document has been electronically signed by: Hima Jordan MD on 05/13/2025 19:49:02
--- NOTE | ~2025-05-13 | XR_ITS ---
CLINICAL HISTORY: leg edema 2 view chest x-ray Comparison: CR/SR - XR CHEST 1 VIEW - 03/22/25 13:15 EDT Findings: No consolidation or effusion. Normal size heart. No acute fracture. IMPRESSION: 1. No acute findings. This document has been electronically signed by: Leydi Ho MD on 05/13/2025 19:35:38
[2025-05-13 13:35] VITALS: BP 128/61; PULSE 93; RESP 16; TEMP 35.9; O2SAT 97
--- NOTE | 2025-05-13 13:35 | ED.GENADULT ---
HPI - General Adult General Chief complaint: Urogenital-Male Stated complaint: genital swelling Time Seen by Provider: 05/13/25 17:02 Source: patient and tailercpa Mode of arrival: ambulatory Limitations: language barrier History of Present Illness ED Provider: HPI narrative: 89-year-old Turkish-speaking male, information was obtained with the help of the hog driver, presenting with bilateral lower extremity swelling for the past 2 weeks, and states that he had sudden onset of scrotal and testicular swelling as well before and now it has resolved, reports that today he has noted malodorous urine, has had no chest pain abdominal pain or shortness of breath. No skin changes, denies being a drinker. Related Data Home Medications ?Medication ?Instructions ?Recorded ?Confirmed amlodipine 5 mg tablet 5 mg PO DAILY 04/12/22 04/03/25 aspirin 81 mg tablet,delayed 81 mg PO DAILY 04/12/22 04/03/25 release atorvastatin 20 mg tablet 20 mg PO BEDTIME 04/12/22 04/03/25 blood sugar diagnostic (FreeStyle #10 ea 04/12/22 08/03/23 Lite Strips) ferrous sulfate 325 mg (65 mg 325 mg PO BID 04/12/22 04/03/25 iron) tablet (FeroSul) lancets 33 gauge (TRUEplus Lancets) #100 ea 04/12/22 08/03/23 pioglitazone 45 mg tablet 45 mg PO DAILY@1900 04/12/22 04/03/25 ascorbic acid (vitamin C) 500 mg 500 mg PO BEDTIME 02/17/24 04/03/25 tablet (Vitamin C) magnesium oxide 400 mg (241.3 mg 400 mg PO DAILY@1200 09/17/24 04/03/25 magnesium) tablet acetaminophen 500 mg tablet 500 - 1,000 mg PO Q8H PRN fever 04/03/25 04/03/25 cyanocobalamin (vitamin B-12) 1,000 mcg PO BEDTIME 04/03/25 04/03/25 1,000 mcg tablet furosemide 20 mg tablet 20 mg PO QAM 04/03/25 04/03/25 metformin 750 mg tablet,extended 750 mg PO BID 04/03/25 04/03/25 release 24 hr mirabegron 50 mg tablet,extended 50 mg PO DAILY 04/03/25 04/03/25 release 24 hr (Myrbetriq) Previous Rx's ?Medication ?Instructions ?Recorded compression socks, medium #2 ea 02/20/25 lidocaine 5 % topical patch 2 patch topical DAILY #15 ea 03/11/25 furosemide 40 mg tablet (Lasix) 40 mg PO BID 7 days #14 tabs 05/13/25 Allergies Allergy/AdvReac Type Severity Reaction Status Date / Time cephalexin Allergy Intermediate Constipatio Verified 05/13/25 13:35 n oxycodone (From Percocet) AdvReac Mild VOMITING/DI Verified 05/13/25 13:35 ZZINES percocet Allergy Unknown nausea/dizz Uncoded 05/13/25 13:35 iness Review of Systems Constitutional: Constitutional: Reports as per [facility] Past Medical History Medical History Tubular adenoma of colon Neurogenic bladder Chronic anemia HTN (hypertension) Prostate cancer Hypercholesterolemia Diabetes mellitus Renal cyst Choledocholithiasis Diverticulosis Surgical History History of colonoscopy History of hernia surgery H/O prostatectomy Family History Family History Unknown Cancer Social History Social History Household Members: None Housing: Apartment Do you presently have visiting nurse or other home services: Yes (Meals on wheels) Alcohol intake: never Patient Tobacco Use Status: Never used Tobacco Smoked in Last 30 Days: No Use of substances other than those prescribed or required for medical reasons: No Advance Directives: Yes Advance Directives on File: Yes Advance Directives Date on File: 02/22/24 service: No Current occupational status: retired Current occupation: right handed Physical Exam ED Exam Exam: General: ?Appears of stated age ? ?no scleral icterus ? Neck: Supple, no LAD ? ?CV: S1-S2 ? ?Resp: ?No wheezing rales rhonchi no stridor moving air well ? Abd: ?Bowel sounds are present, no tenderness no rebound no rigidity, no anasarca of the abdominal wall : Penile implant, no testicular tenderness erythema, no evidence for discoloration in the perineal area ? ?MSK: Patient has anasarca bilateral lower extremities both anterior and posterior distal pulses intact ? Skin: Warm, dry, intact, no jaundice ? ?Neuro: ?Alert and oriented x3, moving upper and lower extremities symmetrically, no obvious facial asymmetry noted, cranial nerves 2-12 intact Vital Signs: Vital Signs - 24 hr 05/13/25 13:35 05/13/25 16:51 05/13/25 18:08 Temperature 96.6 F L 97.6 F Pulse Rate 93 80 98 Respiratory Rate 16 18 18 Blood Pressure 128/61 138/63 148/70 H Pulse Oximetry 97 97 97 Oxygen Delivery Method Room Air Room Air Room Air 05/13/25 18:12 Temperature Pulse Rate Respiratory Rate Blood Pressure 156/71 H Pulse Oximetry Oxygen Delivery Method BMI result Body Mass Index 30.0 Course Course Course Narrative: Rapid medical examination performed in triage by Jesusita Szymanski PA-C. Patient is an 89 year old assigned male at presenting to the emergency department with scrotal and bilateral lower extremity swelling. Patient states over the last 2 weeks he has had worsening lower extremity swelling. Detailed physical exam and review of systems are deferred to the procurement technician. Labs ordered. Patient placed back in the waiting room pending room availability and results. Medications Administered Discontinued Medications Generic Name Dose Route Start Last Admin Trade Name Freq PRN Reason Stop Dose Admin Furosemide 40 mg 05/13/25 18:04 05/13/25 18:12 Furosemide 40 Mg/4 Ml Vial IVPUSH 05/13/25 18:05 40 mg ONCE ONE Administration Protocol Medical Decision Making Medical Decision Making [facility] Narrative: 6:08 PM 05/13/2025 (Dr. Uzair Hines): CHF, renal failure, liver disease, leg edema, DVT is a consideration, the anasarca is quite pronounced, I suspect he will need to be admitted for diuresis as he has a edema posterior as well as anterior and does not look like he is able to ambulate much, other consideration as above 8:59 PM 05/13/2025 (Dr. Uzair Hines): Patient has been ambulating in the room, he is not short of breath, CHF workup reassuring, I will discharge him on diuretics and PCP follow up Differential Diagnosis Differential Diagnoses: The differential diagnosis associated with the presentation includes (See above) Admission/Observation Consideration of admission/observation: Escalation of care including admission/observation considered Lab Data [facility] Lab Attestation statement: I reviewed the patient's lab results. 05/13/25 14:26 05/13/25 14:26 Labs: Lab Results 05/13/25 05/13/25 Range/Units 14:26 20:09 WBC 5.2 (4.8-10.8) X10*3/uL RBC 3.59 L (4.60-5.80) X10*6/uL Hgb 9.7 L (14.0-18.0) g/dl Hct 30.7 L (42.0-52.0) % MCV 85.5 (80.0-98.0) fL MCH 27.0 (27.0-33.0) pg MCHC 31.6 (31.0-36.0) g/dl RDW 18.0 H (11.0-16.0) % Plt Count 312 (160-400) X10*3/uL MPV 9.7 (9.4-12.4) fL Immature Gran % (Auto) 0.4 (0.0-0.4) % Neut % (Auto) 79.8 H (45-73) % Lymph % (Auto) 7.8 L (20-40) % [place] % (Auto) 10.3 (2-11) % Eos % (Auto) 1.1 (0-4) % Baso % (Auto) 0.6 (0-2) % Lymph # (Auto) 0.4 L (1.2-4.9) X10*3/uL [place] # (Auto) 0.5 (0.1-1.2) X10*3/uL Eos # (Auto) 0.1 (0.0-0.4) X10*3/uL Baso # (Auto) 0.0 (0.0-0.2) X10*3/uL Abs Immat Gran (auto) 0.02 (0.00-0.03) X10*3/uL Absolute Neuts (auto) 4.2 (2.0-8.3) x10*3/uL Absolute Nucleated RBC 0.000 (0.0-0.012) X10*3/uL Nucleated RBC % (auto) 0.0 (0.0-0.2) /100WBC Sodium 140 (135-145) mmol/L Potassium 4.5 (3.3-5.1) mmol/L Chloride 108 (96-108) mmol/L Carbon Dioxide 26 (22-29) mmol/L Anion Gap 11 L (12-20) BUN 16 (9-16) mg/dL Creatinine 0.89 (0.5-1.4) mg/dL Estim Creat Clear Calc 53.6 Estimated GFR > 60 POC Glucose 130 H (60-115) mg/dL Random Glucose 262 H (60-115) mg/dL Calcium 8.9 D (8.4-10.2) mg/dL Magnesium 1.8 (1.6-2.6) mg/dL Total Bilirubin 0.5 (0.0-1.0) mg/dL AST 17 (5-37) U/L ALT 9 (0-40) U/L Alkaline Phosphatase 125 H (39-117) U/L NT-Pro-B Natriuret Pep 88.6 (<300) pg/mL Total Protein 6.3 L (6.5-8.0) g/dL Albumin 3.7 (3.5-5.0) g/dL Urine Color Yellow Urine Appearance Clear Urine pH 6.5 (5.0-9.0) Ur Specific [place] 1.020 (1.005-1.025) Urine Protein 30 (1+) H (Neg-Trace) mg/dL Urine Glucose (UA) Negative (Negative) mg/dL Urine Ketones Trace (Negative) mg/dL Urine Blood Negative (Negative) Urine Nitrite Negative (Negative) Ur Leukocyte Esterase Small (1+) H (Negative) Urine RBC 0-2 (0-2) /HPF Urine WBC 6-10 H (0-5) /HPF Ur Squamous Epith Cells 0-2 (0-2) /HPF Urine Bacteria None Seen (None Seen) Hyaline Casts 0-2 (0-2) /LPF Radiology Impression Discussion of test interpretation with radiology: I have reviewed the radiologist's reading. Discharge Plan Discharge Clinical Impression: Bilateral leg edema Patient Disposition: Home, Self-Care Instructions: Leg Edema (ED) Additional Instructions: Please take 20 mg of furosemide twice daily for the next 7 days, make sure to follow up with the primary care physician, your blood work has been reassuring, there was no evidence for heart failure he had chest x-ray EKG and DVT study all of which has been reassuring [place] 20 mg de furosemida dos veces al d?a agustin los pr?ximos 7 d?as, aseg?rese de hacer un seguimiento con el m?dico de atenci?n primaria, roman an?lisis de rosario manley sido tranquilizador, no hubo evidencia de insuficiencia card?phil, se le realiz? chris radiograf?a de t?rax, un ECG y un estudio de TVP, todo lo cual manley sido tranquilizador. Prescriptions: New furosemide [Lasix] 40 mg tablet 40 mg PO BID 7 Days Qty: 14 0RF No Action lidocaine 5 % adhesive patch,medicated 2 patch topical DAILY Qty: 15 0RF Rx Instructions: leave on most painful area for up to 12 hrs cyanocobalamin (vitamin B-12) 1,000 mcg tablet 1,000 mcg PO BEDTIME acetaminophen 500 mg tablet 500 - 1,000 mg PO Q8H PRN (Reason: fever) furosemide 20 mg tablet 20 mg PO QAM metformin 750 mg tablet extended release 24 hr 750 mg PO BID mirabegron [Myrbetriq] 50 mg tablet extended release 24 hr 50 mg PO DAILY ascorbic acid (vitamin C) [Vitamin C] 500 mg tablet 500 mg PO BEDTIME magnesium oxide 400 mg (241.3 mg magnesium) tablet 400 mg PO DAILY@1200 (DME) compression socks, medium Misc See Rx Instructions .Route Qty: 2 0RF Rx Instructions: As directed aspirin 81 mg tablet,delayed release (DR/EC) 81 mg PO DAILY amlodipine 5 mg tablet 5 mg PO DAILY (DME) lancets [TRUEplus Lancets] 33 gauge misc See Rx Instructions .ROUTE .MEDSUPPLY Qty: 100 Rx Instructions: As directed (DME) FreeStyle Lite Strips Strip See Rx Instructions .ROUTE .MEDSUPPLY Qty: 10 Rx Instructions: As directed atorvastatin 20 mg tablet 20 mg PO BEDTIME ferrous sulfate [FeroSul] 325 mg (65 mg iron) tablet 325 mg PO BID pioglitazone 45 mg tablet 45 mg PO DAILY@1900 Referrals: Jolly London MD [Primary Care Provider, Internal Medicine] - 1 week Print Language: Unable To Collect
[2025-05-13 14:32] LABS: MANUAL DIFF FLAG NO
[2025-05-13 14:34] LABS: Appearance Urine Clear; Glucose Urine UA Negative (Negative); PH 6.5 (5.0-9.0); Specific Gravity - Urine 1.020 (1.005-1.025); UMIC TRIGGER UACC YES
[2025-05-13 14:35] LABS: Hematocrit 30.7 % (42.0-52.0); Hemoglobin 9.7 g/dl (14.0-18.0); Imm Gran Abs Auto 0.02 X10*3/uL (0.00-0.03); Imm Gran Pct Auto 0.4 % (0.0-0.4); Lymphocytes Absolute Auto 0.4 X10*3/uL (1.2-4.9); Mean Corpuscular HGB Conc 31.6 g/dl (31.0-36.0); Mean Corpuscular Hemoglobin 27.0 pg (27.0-33.0); Mean Corpuscular Volume 85.5 fL (80.0-98.0); NRBC Abs Auto 0.000 X10*3/uL (0.0-0.012); NRBC Pct Auto 0.0 /100WBC (0.0-0.2); Platelet Count 312 X10*3/uL (160-400); Red Blood Count 3.59 X10*6/uL (4.60-5.80); White Blood Count 5.2 X10*3/uL (4.8-10.8)
[2025-05-13 14:36] LABS: UACC Culture Trigger YES
[2025-05-13 14:55] LABS: Alanine Aminotransferase 9 U/L (0-40); Albumin Level 3.7 g/dL (3.5-5.0); Alkaline Phosphatase 125 U/L (39-117); Anion Gap 11 (12-20); Aspartate Amino Transferase 17 U/L (5-37); Blood Urea Nitrogen 16 mg/dL (9-16); Calcium 8.9 mg/dL (8.4-10.2); Carbon Dioxide 26 mmol/L (22-29); Chloride 108 mmol/L (96-108); Creatinine Clr Calc Pharmacy 53.6; Estimated Glomerular Filt Rate > 60; Magnesium 1.8 mg/dL (1.6-2.6); Potassium 4.5 mmol/L (3.3-5.1); Sodium 140 mmol/L (135-145); Total Protein 6.3 g/dL (6.5-8.0)
[2025-05-13 15:00] LABS: NT Pro B Type Natriuretic Pept 88.6 pg/mL (<300)
[2025-05-13 16:51] VITALS: BP 138/63; PULSE 80; RESP 18; O2SAT 97
--- NOTE | 2025-05-13 17:28 | PC.NURSE ---
Presents with concerns of scrotal swelling, noticed upon waking. States increased swelling to lower extremities as well. Denies pain. Normal UOP, states increase in amount. Denies diuretic usage. Denies CP/SOB.
--- NOTE | 2025-05-13 18:06 | ECG_ITS ---
Test Reason : WEAKNES Blood Pressure : */* mmHG Vent. Rate : 84 BPM Atrial Rate : 84 BPM P-R Int : 166 ms QRS Dur : 66 ms QT Int : 378 ms P-R-T Axes : 37 -10 31 degrees QTcB Int : 446 ms Normal sinus rhythm with sinus arrhythmia Inferior infarct , age undetermined Cannot rule out Anterior infarct , age undetermined Abnormal ECG When compared with ECG of 17-Sep-2024 13:49, No significant change was found Referred By: Uzair Hines Electronically Signed By: RODNEY MARTINEZ
[2025-05-13 18:08] VITALS: BP 148/70; PULSE 98; RESP 18; TEMP 36.4; O2SAT 97
[2025-05-13 18:12] VITALS: BP 156/71
[2025-05-13] MEDS: Furosemide 40 MG/4 ML VIAL IVPUSH (18:12)
--- OUTSIDE RECORDS SUMMARY | 2025-05-13 19:21 | XMS_ITS | Encounter Summary ---
Author Organization [employer] Address [address] [facility] [address] [place] [address] Care Team Providers Care Rock Duster Name Role Phone Jolly London MD Primary Care Provider [phone] Javier Benton PharmD Unavailable [phone] Reason for Referral * Consultation (Urgent) - Closed Specialty Diagnoses / Procedures Referred By Contac t Referred To Contact Diagnoses Sensorineural hearing loss, bilateral Dizziness Jolly London MD [address] [place] [address] Phone: tel: fax: Fred Mann [address] [place] [address] Drive [address] [place], [place] [address] Phone: tel: fax: Referral ID Status Reason Start Date Expiration Date V isits Requested Visits Authorized [id number] Closed Specialty Services Required 10/10/2024 10/10/2025 1 1 Encounter Details Date Type Department Care Team (Late st Contact Info) Description 10/10/2024 Orders Only [facility] [address] [place], [place] [phone] Jolly London MD [address] [place], [place] [phone] Sensorineural hearing loss, bilateral (Primary Dx); Dizziness [...] Team (Late st Contact Info) Description 05/27/2025 9:00 AM EST Office Visit [facility] [address] [place] [phone] Jolly London MD [address] [place] [address] 06/10/2025 2:00 PM EST Medication Management [facility] [address] [place] [phone] Javier Benton, PharmD [address] [place] [address] Scheduled Referrals Name Type Priority Associated Diagnoses Orde r Schedule Referral to ENT Outpatient Referral Urgent Sensorineural hearing loss, bilateral Dizziness Expected: 10/10/2024 (Approximate), Expires: 10/10/2025 documented as of this encounter Goals Goal Patient Goal Type Associated Problems Recent Progress Patient-Stated? Author Blood Pressure < 140/90 Blood Pressure 128/68( 025 5:58 PM EDT) No Javier Benton, PharmD documented as of this encounter Visit Diagnoses Diagnosis Sensorineural hearing loss, bilateral- Primary Dizziness Dizziness and giddiness documented in this encounter Additional Health Concerns Assessment Noted Time PHQ-9 Depression Total Score: 1 08/13/19 25 3:11 PM EST documented as of this encounter Care Teams Rock Duster Relationship Specialty Start Date End Date Jolly London MD [address] [place] [address] PCP - General Family Medicine 06/29/12 Javier Benton, PharmD [address] [place] [address] Pharmacist Internal Medicine 01/14/23 documented as of this encounter
--- OUTSIDE RECORDS SUMMARY | 2025-05-13 19:21 | XMS_ITS | Encounter Summary ---
Author Organization [employer] Address [address] [facility] 7t [place] [address] Care Team Providers Care Price Economist Name Role Phone Jolly London MD Primary Care Provider [phone] Javier Benton PharmD Unavailable [phone] Reason for Visit * Reason Comments Med Refill Encounter Details Date Type Department Care Team (Late st Contact Info) Description 10/14/2022 Refill [facility] [address] [place] [phone] Ximena Harkins FNP Social History Tobacco Use [...] Description 05/27/2025 9:00 AM EST Office Visit [facility] [address] [place] [phone] Jolly London MD [address] [place] [address] 06/10/2025 2:00 PM EST Medication Management [facility] [address] [place] [address] Javier Benton, PharmD [address] [place] [address] documented as of this encounter Visit Diagnoses Not on filedocumented in this encounter Care Teams Price Economist Relationship Specialty Start Date End Date Jolly London MD [address] [place] [phone] PCP - General Family Medicine 06/29/12 Javier Benton, PharmD [address] [place] [address] Pharmacist Internal Medicine 01/14/23 documented as of this encounter
--- OUTSIDE RECORDS SUMMARY | 2025-05-13 19:21 | XMS_ITS | Encounter Summary ---
Author Organization [employer] Address [address] [facility] 7t [place] [address] Care Team Providers Care Sfdc Technical Architect Name Role Phone Jolly Lnodon MD Primary Care Provider [phone] Javier Benton PharmD Unavailable [phone] Encounter Details Date Type Department Care Team ([facility] st Contact Info) Description 03/11/2025 Results Follow-Up [facility] [address] [place] [address] Jolly London MD [address] [place] [address] CT Abdomen Pelvis w/ Contrast Social History [...] Description 05/27/2025 9:00 AM EST Office Visit [facility] [address] [place] [address] Jolly London MD [address] [place] [address] 06/10/2025 2:00 PM EST Medication Management [address] [address] Javier Benton PharmD [address] [place] [address] documented as of this encounter Goals Goal Patient Goal Type Associated Problems Recent Progress Patient-Stated? Author Blood Pressure < 140/90 Blood Pressure 128/68( 025 5:58 PM EDT) No Javier Benton, Marc documented as of this encounter Visit Diagnoses Not on filedocumented in this encounter Additional Health Concerns Assessment Noted Time PHQ-9 Depression Total Score: 1 08/13/19 25 3:11 PM EST documented as of this encounter Care Teams Sfdc Technical Architect Relationship Specialty Start Date End Date Jolly London MD [address] [place] [address] PCP - General Family Medicine 06/29/12 Javier Benton, AreliD [address] [place] [address] Pharmacist Internal Medicine 01/14/23 documented as of this encounter
--- OUTSIDE RECORDS SUMMARY | 2025-05-13 19:21 | XMS_ITS | Encounter Summary ---
Author Organization [employer] Address [address] [facility] 7t [place] [address] Care Team Providers Care Sole Cementer Name Role Phone Jolly London MD Primary Care Provider [phone] Javier Benton PharmD Unavailable [phone] Reason for Visit * Reason Onset Date Comments Durable Medical Equipment 05/09/2025 Encounter Details Date Type Department Care Team ([facility] st Contact Info) Description 05/09/2025 Telephone [facility] [address] [place] [address] Jolly London MD [address] [place], [place] [phone] Durable Medical Equipment Social History Tobacco Use Types Packs/Day Years [...] encounter Miscellaneous Notes * Telephone Encounter - June Sloan - 05/09/2025 10:46 AM EDT Rx for compression stockings generated and faxed to [facility]/[employer]. If pt calls for status, please advise to contact [facility] healthcare management. * Telephone Encounter - June Sloan - 05/09/2025 10:46 AM EDT ----- Message from Tarah Faust sent at 05/08/2025 12:52 PM EDT ----- Please this patient has bilateral edema of the lower extremities and would benefit from use of compression stock. Please can you process an order for it. Thank you documented in this encounter Plan of Treatment Upcoming Encounters Date Type Department Care Team (Late st Contact Info) Description 05/27/2025 9:00 AM EST Office Visit [facility] [address] [place] [address] Jolly London MD [address] [place], [place] [phone] 06/10/2025 2:00 PM EST Medication Management [facility] [address] [place] [address] Javier Benton, Marc [address] [place] [address] documented as of this encounter Goals Goal [...] documented as of this encounter Care Teams Sole Cementer Relationship Specialty Start Date End Date Jolly London MD [address] [place] [address] PCP - General Family Medicine 06/29/12 Javier Benton, PharmD [address] [place] [address] Pharmacist Internal Medicine 01/14/23 documented as of this encounter
--- OUTSIDE RECORDS SUMMARY | 2025-05-13 19:21 | XMS_ITS | Encounter Summary ---
Author Organization [employer] Address [address] [facility] 7t [place] [address] Care Team Providers Care Licensed Occupational Therapist Name Role Phone Jolly London MD Primary Care Provider [phone] Javier Benton PharmD Unavailable [phone] Reason for Referral * Consultation (Routine) - Closed Specialty Diagnoses / Procedures Referred By Contac t Referred To Contact Audiology Diagnoses Sensorineural hearing loss, bilateral Jolly London MD [address] [place] [address] Phone: tel: fax: [facility] Audiology [address] Floor [place], [place] Phone: tel: fax: Referral ID Status Reason Start Date Expiration Date V isits Requested Visits Authorized [id number] Closed Specialty Services Required 10/10/2024 10/10/2025 1 1 Encounter Details Date Type Department Care Team (Late st Contact Info) Description 10/10/2024 Orders Only [facility] [address] [place], [place] [phone] Jolly London MD [address] [place], [place] [phone] Sensorineural hearing loss, bilateral (Primary Dx) Social [...] Description 05/27/2025 9:00 AM EST Office Visit [facility] [address] [place] [phone] Jolly London MD [address] [place] [address] 06/10/2025 2:00 PM EST Medication Management [facility] [address] [place] [address] Javier Benton, PharmD [address] [place] [address] Scheduled Referrals Name Type Priority Associated Diagnoses [...] documented as of this encounter Care Teams Licensed Occupational Therapist Relationship Specialty Start Date End Date Jolly London MD [address] [place] [address] PCP - General Family Medicine 06/29/12 Javier Benton, PharmD [address] [place] [address] Pharmacist Internal Medicine 01/14/23 documented as of this encounter
--- OUTSIDE RECORDS SUMMARY | 2025-05-13 19:21 | XMS_ITS | Encounter Summary ---
Author Organization [employer] Address [address] [facility] 7t [place] [address] Care Team Providers Care Helpdesk Technician Name Role Phone Jolly London MD Primary Care Provider [phone] Javier Benton PharmD Unavailable [phone] Encounter Details Date Type Department Care Team (Late st Contact Info) Description 05/13/2025 Orders Only GENERIC EXTERNAL DATA DEPARTMENT Provider, [...] the past 12 months, has t he [employer], gas, oil or water [employer] threatened to shut off services in your [...] 05/27/2025 9:00 AM EST Office Visit [facility] [address] [place] [address] [phone] Jolly London MD [address] [place] [address] 06/10/2025 2:00 PM EST Medication Management [facility] [address] [place] [address] 37760 Javier Benton, PharmD [address] [place] [address] documented as of this encounter Goals Goal Patient Goal Type Associated Problems Recent Progress Patient-Stated? Author Blood Pressure < 140/90 Blood Pressure 128/68( 025 5:58 PM EDT) No Javire Benton, PharmD documented as of this encounter Procedures Procedure Name Priority Date/Time Associated Diagnosis Comments URINALYSIS, COMPLETE, WITH REFLEX TO CULTURE Routine 05/13/2025 2:26 PM EDT NT-PROBNP Routine 05/13/2025 2:26 PM EDT CBC WITH AUTO DIFFERENTIAL Routine 05/13/2025 2:26 PM EDT MAGNESIUM Routine 05/13/2025 2:26 PM EDT COMPREHENSIVE METABOLIC PANEL Routine 05/13/2025 2:26 PM EDT documented in this encounter Results * NT-proBNP (05/13/2025 2:26 PM EDT) NT-proBNP 88.6 <300 pg/mL [facility] Comment:Reference Range:Age Group (years) NT-proBNP (pg/ml) InterpretationAll <300 Negative: HF unlikelyFor patients presenting to the ED with clinical suspicion ofnew onset or worsening HF, see below:18 to <50 >299.9 to <450.0 Grayzone: [id number] to 75 >299.9 to <900.0 other causes of>75 >299.9 to <1800.0 NT-proBNP [id number] to <50 >449.9 Positive: HF [id number] >899.9>75 >1799.9Note: Elevated NT-proBNP levels should be interpreted inthe context of other clinical information. 05/13/2025 2:26 PM EDT 05/13/2025 2:30 PM EDT Generic External Data Provider LAB BLOOD ORDERAB LES Final Result Performing Organization Address [facility] Co de Phone Number [facility] [address] [place] [address] [phone] * Magnesium (05/13/2025 2:26 PM EDT) Pathologist [facility] Magnesium 1.8 1.6 - 2.6 mg/dL [facility] 05/13/2025 2:26 PM EDT 05/13/2025 2:30 PM EDT [employer] External Data Provider LAB BLOOD ORDERAB LES Final Result Performing Organization Address [facility] de Phone Number [facility] [address] [place] [address] [phone] * (ABNORMAL) Comprehensive Metabolic Panel (05/13/2025 2:26 PM EDT) Pathologist [facility] Sodium 140 135 - 145 mmol/L [facility] Potassium 4.5 3.3 - 5.1 mmol/L [facility] Chloride 108 96 - 108 mmol/L [facility] Carbon Dioxide 26 22 - 29 mmol/L [facility] Anion Gap 11(L) 12 - 20 [facility] Urea Nitrogen (BUN) 16 9 - 16 mg/dL [facility] Creatinine, Serum 0.89 0.5 - 1.4 mg/dL [facility] Creatinine Clr Calc Pharmacy 53.6 [facility] Comment:eGFR (calculated fro m the MDRD study equation) and eCrCl(calculated from the Cockcroft-Gault equation) are based ondifferent parameters and may not yield comparable results.If eCrCl result is absurd, please check patient'sheight/weight. Estimated Glomerular Filt Rate >60 [facility] Comment:Chronic Kidney Disea se: Estimated GFR < 60 mL/min/1.88m1Efbkiz Kidney Disease: Estimated GFR < 15 mL/min/1.73m2 Glucose 262(H) 60 - 115 mg/dL [facility] Calcium 8.9 8.4 - 10.2 mg/dL [facility] Bilirubin, Total 0.5 0.0 - 1.0 mg/dL [facility] Aspartate Amino Transferase 17 5 - 37 U/L [facility] Alanine Aminotransferase 9 0 - 40 U/L [facility] Total Protein 6.3(L) 6.5 - 8.0 g/dL [facility] Albumin Level 3.7 3.5 - 5.0 g/dL [facility] Alkaline Phosphatase 125(H) 39 - 117 U/L [facility] 05/13/2025 2:26 PM EDT 05/13/2025 2:30 PM EDT us Generic External Data Provider LAB BLOOD ORDERAB LES Final Result [facility] [address] [place] [phone] * (ABNORMAL) CBC auto differential (05/13/2025 2:26 PM EDT) White Blood Count 5.2 4.8 - 10.8 X10*3/uL [facility] Red Blood Count 3.59(L) 4.60 - 5.80 X10*6/uL [facility] Hemoglobin 9.7(L) 14.0 - 18.0 g/dl [facility] Hematocrit 30.7(L) 42.0 - 52.0 % [facility] Mean Corpuscular Volume 85.5 80.0 - 98.0 fL [facility] Mean Corpuscular Hemoglobin 27.0 27.0 - 33.0 pg [facility] Mean Corpuscular HGB Conc 31.6 31.0 - 36.0 g/dl [facility] Red Cell Distribution Width 18.0(H) 11.0 - 16.0 % [facility] Platelet Count 312 160 - 400 X10*3/uL [facility] Mean Platelet Volume 9.7 9.4 - 12.4 fL [facility] Neutrophils Percent Auto 79.8(H) 45 - 73 % [facility] Imm Gran Pct Auto 0.4 0.0 - 0.4 % [facility] Lymphocytes Percent Auto 7.8(L) 20 - 40 % [facility] Monocytes Percent Auto 10.3 2 - 11 % [facility] Eosinophils Percent Auto 1.1 0 - 4 % [facility] Basophils Percent Auto 0.6 0 - 2 % [facility] NRBC Pct Auto 0.0 0.0 - 0.2 /100WBC [facility] Neutrophils Absolute Auto 4.2 2.0 - 8.3 x10*3/uL [facility] Imm Gran Abs Auto 0.02 0.00 - 0.03 X10*3/uL [facility] Lymphocytes Absolute Auto 0.4(L) 1.2 - 4.9 X10*3/uL [facility] Monocytes Absolute Auto 0.5 0.1 - 1.2 X10*3/uL [facility] Eosinophils Absolute Auto 0.1 0.0 - 0.4 X10*3/uL [facility] Basophils Absolute Auto 0.0 0.0 - 0.2 X10*3/uL [facility] NRBC Abs Auto 0.000 0.0 - 0.012 X10*3/uL [facility] 05/13/2025 2:26 PM EDT 05/13/2025 2:30 PM EDT us Generic External Data Provider LAB BLOOD ORDERAB LES Final Result [facility] [address] [place] [phone] [phone] * (ABNORMAL) Urinalysis, Complete, with Reflex to Culture (05/13/2025 2:26 PM EDT) Color Urine Yellow [facility] Appearance Urine Clear [facility] PH 6.5 5.0 - 9.0 [facility] Glucose Urine UA Negative Negative mg/dL [facility] Urine Blood Negative Negative [facility] Specific [place] - Urine 1.020 1.005 - 1.025 [facility] Urine Protein 30 (1+)(A) Neg-Trace mg/dL [facility] Urine Ketones Trace Negative mg/dL [facility] Nitrite Urine Negative Negative [facility] Leukocyte Esterase Urine Small (1+)(A) Negative [facility] RBC Urine 0-2 0 - 2 /HPF [facility] Urine WBC 6-10(A) 0 - 5 /HPF [facility] Urine Squamous Epithelial Cell 0-2 0 - 2 /HPF [facility] Urine Bacteria None Seen None Seen [facility] Hyaline Casts, Urine 0-2 0 - 2 /LPF [facility] 05/13/2025 2:26 PM EDT 05/13/2025 2:30 PM EDT Narrative [facility] - 05/13/2025 2:44 PM EDT Urine, Clean Catch us Generic External Data Provider LAB URINE ORDERAB LES Final Result [facility] [address] [place] [phone] [phone] documented in this encounter Visit Diagnoses Not on filedocumented in this encounter Additional Health Concerns Assessment Noted Time PHQ-9 Depression Total Score: 1 08/13/19 25 3:11 PM EST documented as of this encounter Care Teams Helpdesk Technician Relationship Specialty Start Date End Date Jolly London MD [address] [place] [address] PCP - General Family Medicine 06/29/12 Javier Benton, AreliD [address] [place] [phone] Pharmacist Internal Medicine 01/14/23 documented as of this encounter
--- OUTSIDE RECORDS SUMMARY | 2025-05-13 19:21 | XMS_ITS | Encounter Summary ---
Author Organization [employer] Address 75 [facility] 7t [place] [address] Care Team Providers Care Pilot Boat Operator Name Role Phone Jolly London MD Primary Care Provider [phone] Javier Benton PharmD Unavailable [phone] Encounter Details Date Type Department Care Team (Late st Contact Info) Description 02/28/2023 Orders Only [facility] [address] [place] [address] [phone] Jolly London MD [address] [place] [address] [phone] Anemia of chronic disorder (Primary Dx); Hyperkalemia [...] Description 05/27/2025 9:00 AM EST Office Visit [facility] [address] [place] [address] [phone] Jolly London MD [address] [place] [address] [phone] 06/10/2025 2:00 PM EST Medication Management [facility] [address] [place] [address] Javier Benton, PharmD [address] [place] [address] Scheduled Orders Name Type Priority Associated Diagnoses [...] documented as of this encounter Care Teams Pilot Boat Operator Relationship Specialty Start Date End Date Jolly London MD [address] [place] [address] [phone] PCP - General Family Medicine 06/29/12 Javier Benton, PharmD [address] [place] [address] [phone] Pharmacist Internal Medicine 01/14/23 documented as of this encounter
--- OUTSIDE RECORDS SUMMARY | 2025-05-13 19:21 | XMS_ITS | Encounter Summary ---
Author Organization [employer] Address [address] [facility] 7t [place] [address] Care Team Providers Care Ranch Rider Name Role Phone Jolly London MD Primary Care Provider [phone] Javier Benton PharmD Unavailable [phone] Reason for Referral * Consultation (Routine) - Closed Specialty Diagnoses / Procedures Referred By Contac t Referred To Contact Otolaryngology Diagnoses Dizziness Sensorineural hearing loss, bilateral Jolly London MD [address] [place] [address] Phone: tel: fax: [facility] [address] Phone: tel: fax: Referral ID Status Reason Start Date Expiration Date V isits Requested Visits Authorized [id number] Closed Specialty Services Required 10/15/2024 10/15/2025 1 1 Encounter Details Date Type Department Care Team (Late st Contact Info) Description 10/10/2024 Orders Only [facility] [address] [place], [place] [phone] Jolly London MD [address] [place], [place] [phone] Dizziness (Primary Dx); Sensorineural hearing loss, bilateral [...] Description 05/27/2025 9:00 AM EST Office Visit [facility] [address] [place] [address] [phone] Jolly London MD [address] [place] [address] [phone] 06/10/2025 2:00 PM EST Medication Management [facility] [address] [place] [address] [phone] Javier Benton, PharmD [address] [place] [address] [phone] Pending Results Name Type Priority Associated Diagnoses [...] 025 5:58 PM EDT) No Javier Benton, AreliD documented as of this encounter Visit Diagnoses Diagnosis Dizziness- Primary Dizziness and giddiness Sensorineural hearing loss, bilateral documented in this encounter Additional Health Concerns Assessment Noted Time PHQ-9 Depression Total Score: 1 08/13/19 25 3:11 PM EST documented as of this encounter Care Teams Ranch Rider Relationship Specialty Start Date End Date Jolly London MD [address] [place] [address] PCP - General Family Medicine 06/29/12 Javier Benton, AreliD [address] [place] [address] Pharmacist Internal Medicine 01/14/23 documented as of this encounter
--- OUTSIDE RECORDS SUMMARY | 2025-05-13 19:22 | XMS_ITS | Encounter Summary ---
Author Organization [employer] Address [address] [facility] 7t [place] [address] Care Team Providers Care Tawer Name Role Phone Jolly London MD Primary Care Provider [phone] Javier Benton PharmD Unavailable [phone] Reason for Referral * Consultation (Routine) - Canceled Specialty Diagnoses / Procedures Referred By Contac t Referred To Contact Pharmacy Diagnoses Primary hypertension Type 2 diabetes mellitus with hyperglycemia, without long-term current use of insulin ([facility]) Jolly London MD [address] [place] [address] Phone: tel: fax: Referral ID Status Reason Start Date Expiration Date V isits Requested Visits Authorized [id number] Canceled Consult and Treat 05/29/2024 05/29/2025 6 6 Encounter Details Date Type Department Care Team (Late st Contact Info) Description 05/29/2024 Orders Only [facility] [address] [place] [address] [phone] Jolly London MD [address] [place] [address] [phone] Primary hypertension (Primary Dx); Type 2 diabetes mellitus with hyperglycemia, without long-term current use of insulin ([facility]/HCC) Social History Tobacco Use Types Packs/Day Years [...] AM EST Office Visit [facility] [address] [place] [address] [phone] Jolly London MD [address] [place] [phone] 06/10/2025 2:00 PM EST Medication Management [facility] [address] [place] [address] [phone] Javier Benton, AreliD [address] [place] [address] [phone] Scheduled Referrals Name Type Priority Associated Diagnoses Orde r Schedule Referral to Pharmacy CDTM Outpatient Referral Routine Primary hypertension Type 2 diabetes mellitus with hyperglycemia, without long-term current use of insulin ([facility]) Ordered: 05/29/2024 documented as of this encounter Goals Goal Patient Goal Type Associated Problems Recent Progress Patient-Stated? Author Blood Pressure < 140/90 Blood Pressure 128/68( 025 5:58 PM EDT) No Javier Benton, PharmD documented as of this encounter Visit Diagnoses Diagnosis Primary hypertension- Primary Unspecified essential hypertension Type 2 diabetes mellitus with hyperglycemia, without long-term current use of insulin (HCC) documented in this encounter Additional Health Concerns Assessment Noted Time PHQ-9 Depression Total Score: 0 02/15/20 23 1:30 PM EDT documented as of this encounter Care Teams Tawer Relationship Specialty Start Date End Date Jolly London MD [address] [place] [address] PCP - General Family Medicine 06/29/12 Javier Benton, PharmD [address] [place] [address] Pharmacist Internal Medicine 01/14/23 documented as of this encounter
--- OUTSIDE RECORDS SUMMARY | 2025-05-13 19:22 | XMS_ITS | Encounter Summary ---
Author Organization [employer] Address [address] [facility] 7t [place] [address] Care Team Providers Care Hide Or Skin Buffer Name Role Phone Jolly London MD Primary Care Provider [phone] Javier Benton PharmD Unavailable [phone] Reason for Visit * Reason Onset Date Comments Hospital Follow-up 03/28/2025 Encounter Details Date Type Department Care Team ([facility] st Contact Info) Description 03/28/2025 Telephone [facility] [address] [place], [place] [phone] Jolly London MD [address] [place], [place] [phone] Hospital Follow-up Social History Tobacco Use Types [...] Miscellaneous Notes * Telephone Encounter - Seda Baptiste - 03/28/2025 2:02 PM EDT Tc from pt requesting a HDF appt. Hospital: [facility] Date of admission: 03/23 Discharge date: 04/02 Diagnosed: fracture in hip *Send message to [facility] Care Coordinators documented in this encounter Plan of Treatment Upcoming Encounters Date Type Department Care Team (Late st Contact Info) Description 05/27/2025 9:00 AM EST Office Visit [facility] [address] [place] [address] [phone] Jolly London MD [address] [place] [address] [phone] 06/10/2025 2:00 PM EST Medication Management [facility] [address] [place] [address] 44[address] Javier Benton, PharmD [address] [place] [address] documented as of this encounter Goals Goal [...] documented as of this encounter Care Teams Hide Or Skin Buffer Relationship Specialty Start Date End Date Jolly London MD [address] [place] [address] PCP - General Family Medicine 06/29/12 Javier Benton, AreliD [address] [place] [address] Pharmacist Internal Medicine 01/14/23 documented as of this encounter
--- OUTSIDE RECORDS SUMMARY | 2025-05-13 19:22 | XMS_ITS | Encounter Summary ---
Author Organization [employer] Address 75 [facility] 7t [place] [address] Care Team Providers Care Lens Dotter Name Role Phone Jolly London MD Primary Care Provider [phone] Javier Benton PharmD Unavailable [phone] Reason for Visit * Reason Comments Med Refill Encounter Details Date Type Department Care Team ([facility] st Contact Info) Description 03/11/2024 Refill [facility] [address] [place], [place] [phone] Jolly London MD [address] [place], [place] [phone] Helicobacter pylori gastrointestinal tract infection Social History [...] Description 05/27/2025 9:00 AM EST Office Visit [address] [phone] Jolly London MD [address] [place] [phone] 06/10/2025 2:00 PM EST Medication Management [address] [address] Javier Benton, PharmD [address] [place] [address] [phone] documented as of this encounter Goals Goal [...] documented as of this encounter Care Teams Lens Dotter Relationship Specialty Start Date End Date Jolly London MD [address] [place] [address] [phone] PCP - General Family Medicine 06/29/12 Javier Benton, PharmD [address] [place] [address] [phone] Pharmacist Internal Medicine 01/14/23 documented as of this encounter
--- OUTSIDE RECORDS SUMMARY | 2025-05-13 19:22 | XMS_ITS | Encounter Summary ---
Author Organization [employer] Address 75 [facility] 7t [place] [address] Care Team Providers Care Tassel Maker Name Role Phone Jolly London MD Primary Care Provider [phone] Javier Benton PharmD Unavailable [phone] Encounter Details Date Type Department Care Team ([facility] st Contact Info) Description 03/07/2024 Orders Only [facility] [address] [place], [place] [phone] Jolly London MD [address] [place], [place] [phone] Social History Tobacco Use Types Packs/Day Years [...] Description 05/27/2025 9:00 AM EST Office Visit [facility] [address] [place] [phone] Jolly London MD [address] [place] [address] [phone] 06/10/2025 2:00 PM EST Medication Management [address] [phone] Javier Benton PharmD [address] [place] [phone] documented as of this encounter Goals Goal Patient Goal Type Associated Problems Recent Progress Patient-Stated? Author Blood Pressure < 140/90 Blood Pressure 128/68( 025 5:58 PM EDT) No Javier Benton PharmD documented as of this encounter Visit Diagnoses Not on filedocumented in this encounter Additional Health Concerns Assessment Noted Time PHQ-9 Depression Total Score: 0 02/15/20 23 1:30 PM EDT documented as of this encounter Care Teams Tassel Maker Relationship Specialty Start Date End Date Jolly London MD [address] [place] [address] [phone] PCP - General Family Medicine 06/29/12 Javier Benton PharmD [address] [place] [address] [phone] Pharmacist Internal Medicine 01/14/23 documented as of this encounter
--- OUTSIDE RECORDS SUMMARY | 2025-05-13 19:22 | XMS_ITS | Patient Health Record ---
Author Organization [facility] [employer] Billing Info Address [address] [place] [address] [place] [address] Care Team Providers Care Ambulatory Service Representative Name Role Phone Nadia Black Primary Care Provider CRIS Lr Unavailable [phone] Allergies No Known Allergies Reason For Referral No Information Medications Medication SIG (Take, Route, Fr equency, Duration) Notes Start Date End Date Status Aspir-81 Active Lisinopril 20 MG 1 tablet Orally [...] Problem Status W/U Status Risk Notes Problem [id number] Urinary frequenc y (R35.0) Active confirmed Problem [id number] Prostate cancer (C61) Active confirmed Problem [id number] Urge incontinenc e of urine (N39.41) Active confirmed Plan Of Treatment No Information Insurance Providers Payer Name Payer Address Payer Phone Subscriber Number Group Number Insured Name Patient Relationship to Insured Coverage Start Date Coverage End Date [facility] [address] TELMA BOATENG [id number] Vel Manuel pichardoToni Self - patient is the insured 8 [facility] [address] [place], [place] [id number] Sadavidal Manuel pichardoToni Self - patient is the insured 1 1 MEDICARE [place] PART B [address] [facility] TELMA YOUNG [id number] MartinToni severino Self - patient is the insured Medical (General) History Medical History History ICD Code Prostate cancer Diabetes mellitus Hypertension Hyperlipidemia Constipation UTI Hemriods Surgical History Surgery Date(Month/Year) prostate circumcision cataract surgery
--- OUTSIDE RECORDS SUMMARY | 2025-05-13 19:22 | XMS_ITS | Data Portability ---
Author Organization [facility], Main Office Address [address], [address] [place] [address] Care Team Providers Care Clinical Data Manager Name Role Phone QUENTIN MORGAN - 2ND FLOOR OTHER Assessment Encounter Date Assessment Date Assessment LastModified by Organization Details LastModified Time 02/28/2024 02/28/2024 I have seen and examined the patient independently and confirmed the findings above with the DIRECT CARE PROVIDER student note. Management plan discussed with the DIRECT CARE PROVIDER student personally. [email or web address] Not available 02/28/2024 14:09:16 03/01/2024 03/01/2024 45 mins. spent on coordination of discharge [email or web address] Not available 03/01/2024 15:25:32 Plan of Treatment [...] and Address Organization Details Recorded Time Asthenia 09038831 Active 2023 KHALIDA NESBITT NP [address], [address], [place], [address], [employer] 4 10:39:59 Acute nontraumati c kidney injury 4155557954276 03 Active 2023 KHALIDA NESBITT NP [address], [address], [place], [address], [facility] [employer] 4 10:40:05 Urinary tract infectious disease 06863056 Active 2023 KHALIDA NESBITT NP [address], [address], [place], [address], [employer] [facility] 4 10:40:12 Hypomagnese kaitlin 484519606 Active 2023 KHALIDA NESBITT NP [address], [address], [place], [address], [facility] 4 10:40:29 Malignant neoplasm of prostate 005698505 Active 2023 XRT KHALIDA NESBITT NP [address], [address], [place], [address], [facility] [employer] [facility] 4 10:41:04 Type 2 diabetes mellitus without complicatio n 364297946 Active 2023 KHALIDA NESBITT NP [address], [address], [place], [address], [facility] [facility] [employer] [facility] 4 10:42:06 Hypertensiv e disorder 12969503 Active 2023 KHALIDA NESBITT NP [address], [address], [place], [address], [employer] [facility] 4 10:42:13 Hyperlipide [facility] 32965880 Active 2023 KHALIDA NESBITT NP [address], [address], [place], [address], [employer] [facility] 4 10:42:18 Anemia 301462515 Active 2023 KHALIDA NESBITT NP [address], [address], [place], [address], [facility] [facility] 4 10:43:45 Problem Notes None recorded. Medical Equipment None Reported. Allergies Allergen ID Allergen Name Allergen Category Reaction Reaction Severity Criticality Documentation Date Start Date Code Code System Note Provider Name and Address Organization Details Recorded Time 44548 Keflex medicatio n Not available Not available Not available 02/22/2024 69734 7 RxNorm const ipati on KHALIDA NESBITT NP [address], [address], [place], [address], [facility] [facility] 4 10:22:19 34619 oxycodone medicatio n Not available Not available Not available 02/22/2024 7804 RxNorm vomit ing, shima chaudhry KHALIDA NESBITT NP [address], [address], [place], [address], [employer] [facility] 4 10:22:37 13372 acetamino phen / oxycodone medicatio n Not available Not available Not available 02/22/2024 55311 3 RxNorm nause a, shima chaudhry KHALIDA NESBITT NP [address], [address], [place], [address], [employer] 4 10:22:55 Medications Not known to be on any medication Vitals Date Recorded Heart rate Respiratory rate Body temperature Systolic And Diastolic Provider Name and Address Organization Details Last Updated DateTime 02/22/2024 110 /min 20 /min 97.9 [degF] 98/62 mm[Hg] KHALIDA NESBITT NP [address], [address], [place], [address], [employer] 4 10:19:22 Date Recorded Heart rate Respiratory rate Body temperature Oxygen saturation Oxygen saturation in Arterial blood by Pulse oximetry Systolic And Diastolic Provider Name and Address Organization Details Last Updated DateTime 4 109 /min 18 /min 98.1 [degF] 97 % 97 % 110/60 mm[Hg] KHALIDA NESBITT NP [address], [address], [place], [address], [employer] 4 10:16:09 Date Recorded Systolic And Diastolic Provider Name and Address Organization Details Last Updated DateTime 02/25/2024 110/73 mm[Hg] Mayo Gomez MD [address], [address], [place], [address], [employer] [facility] 02/25/2024 16:04:57 Date Recorded Body height Body mass index (BMI) Body weight Respiratory rate Body temperature Oxygen saturation Oxygen saturation in Arterial blood by Pulse oximetry Systolic And Diastolic Provider Name and Address Organization Details Last Updated DateTime 4 157.48 cm 27.9 kg/m2 76837.8 4 g 18 /min 98.2 [degF] 96 % 96 % 150/81 mm[Hg] Mylene abrams [facility] 4 12:52:27 Date Recorded Body height Heart rate Respiratory rate Body temperature Oxygen saturation Oxygen saturation in Arterial blood by Pulse oximetry Systolic And Diastolic Provider Name and Address Organization Details Last Updated DateTime 4 157.48 cm 96 /min 18 /min 97.8 [degF] 95 % 95 % 132/68 mm[Hg] KHALIDA NESBITT NP [address], [address], [place], [address], [employer] [facility] 4 14:50:13 Social History Question Answer Notes LastModified by Organizat ion Details LastModified Time Tobacco Smoking Status Former Smoker quit over 10 yrs ago KHALIDA NESBITT NP [address], [address], [place], [address], [employer] 02/22/2024 11:06:58 What Is Your Code Status? Full Code Information not available 02/22/2024 Where Do You Live? Apartment Elevator, No Stairs. Brother Nearby [email or web address] Information not available 02/22/2024 Do You Have A Medical Power Of Environmental Property Assessor? Yes Has HCP [email or web address] Information not available 02/22/2024 What Was The Date Of Your Most Recent Tobacco Screening? 02/22/2024 Information not available 02/22/2024 Do You Have An Out Of Hospital DNR? No [email or web address] Information not available 02/22/2024 Have You Ever Been Counseled For Unhealthy Alcohol Use? No [email or web address] Information not available 02/22/2024 How Much Tobacco Do You Smoke? No [email or web address] Information not available 02/22/2024 Has Tobacco Cessation Counseling Been Provided? No Information not available 02/22/2024 Sex: Unknown Functional Status Question Answer Note LastModified by Organizat ion Details LastModified Time Do you use any illicit or recreational drugs? No Information not available 02/22/2024 Do you or have you ever used any other forms of tobacco or nicotine? No [email or web address] Information not available 02/22/2024 What is your level of alcohol consumption? Occasional Social [email or web address] Information not available 02/22/2024 Mental Status None recorded. Family History Nothing Reported Notes:N/A Medical History No medical history recorded. Past Encounters Encounter ID Performer Location Encounter Start Date Encounter Closed Date Diagnosis/Indication Diagnosis SNOMED-CT Code Diagnosis ICD10 Code Diagnosis IMO Codes Diagnosis Note [id number] KHALIDA NESBITT NP [address] [address] 02/22/2024 10:17:35 02/28/2024 14:23:59 Asthenia 65227762 R53.1 PT OT eval and tx. for reconditio klaudia, balance, strength, and gait trainingGo al is to return home. Hypomagnesemia 372187799 E83.42 Severe, <0.6 upon admit to hosp.Impro matias with supplement s and d/c of PPI.Discha rged on MagOx 800 mg tidPlan -Mg level q tuesday x 3Adjust dose prn Urinary tr act infectious disease 99098293 N39.0 ESBL E. ColiSeen by ID - now on ertapenem 1 gm IV qd x 10 days, last dose 813Contin ue phenazopyr idine 100 mg tid prnAdd probiotic 1 bid x 10 daysMonito r VS, lans, s/s infection. Maintain hydrationS till with moderate sx. but better than prior Acute nont raumatic kidney injury 6519446024 25911 N17.9 Improved with fluids and d/c of OTIS IMaintain fluidsMoni tor labs Type 2 lokesh betes mellitus without complication 422788700 E11.9 Continue metformin ER 750 mg bid, pioglitazo ne 45 mg qdCarb control dietPt. requesting BS TID AC, will orderMonit or Hypertensive disorder 38 964035 I10 Currently on norvasc 5 mg qdLisinopr il 40 mg qd stopped in hosp. due to AKIMonitor VS, labs, need to adjust meds/ Hyperlipidemia 46949090 E78.5 Continue atorvastat in 20 mg qdLabs prn Anemia 523378829 D64.9 Continue home meds:Fe SO4 325 mg qdVit C 500 mg qdB 12 1000 mcg qd Malignant neoplasm of prostate 956283825 C61 myrbetriq 50 mg qd Aspirin th erapy finding 660628137 Z79.82 unsure why he is currently takingwill continue ASA 81 mg qd for now [id number] KHALIDA NESBITT NP [facility] [address] [place] [address] 02/23/2024 10:13:03 02/28/2024 15:24:45 Asthenia 95786791 R53.1 PT OT eval and tx. for reconditio klaudia, balance, strength, and gait trainingGo al is to return home. Hypomagnesemia 927162295 E83.42 Severe, <0.6 upon admit to hosp.Impro matias with supplement s and d/c of PPI.Discha rged on MagOx 800 mg tidCurrent Mg level 02/21 = 1.9Plan -Mg level q tuesday x 3Adjust dose prn Urinary tr act infectious disease 31540615 N39.0 ESBL E. ColiSeen by ID - [...] than prior Acute nont raumatic kidney injury 1191147306 55586 N17.9 Improved with fluids and d/c of OTIS ICMP yesterday with K of 5.4Maintai n fluidsMoni tor labs - BMP q tued. x 3 Type 2 lokesh betes mellitus without complication 112309245 E11.9 Continue metformin ER 750 mg bid, pioglitazo ne 45 mg qdCarb control dietBS TID AC per pt. requestMon itor Hypertensive disorder 38 806483 I10 So far in good controlCur rently on norvasc 5 mg qd - continueLi sinopril 40 mg qd stopped in hosp. due to AKIMonitor VS, labs, need to adjust meds Hyperlipidemia 02772756 E78.5 Continue atorvastat in 20 mg qdLabs prn Anemia 621073238 D64.9 Continue home meds:Fe SO4 325 mg qdVit C 500 mg qdB 12 1000 mcg qd Malignant neoplasm of prostate 668874041 C61 myrbetriq 50 mg qd Aspirin th erapy finding 213948891 Z79.82 unsure why he is currently takingwill continue ASA 81 mg qd for now Tachycardia 9923942 R00. 0 HR running in low 100s here, regular rateAsympt omatic.Uns ure of baseline Plan -continue to monitor closelymai ntain po fluidstrea t infectiont rend labsconsid er metoprolol in place of norvasc to help reduce HR [id number] Mayo Gomez MD [facility] [address] [address] 02/25/2024 16:04:10 02/28/2024 15:54:08 Asthenia 88530190 R53.1 PT OT eval and treatmonit or fall risk and need for increased support in community Hypomagnesemia 762748259 E83.42 repleted in hospital now onMg supplement monitor lytes and need to titrate Urinary tr act infectious disease 06016808 N39.0 see HPIeval by ID and to complete course of ertapenema dd probioticm onitor for recurrent diseaseif dysuria continues repeat UA Acute nont raumatic kidney injury 3462553061 42975 N17.8 OTIS-I d/c'edmoni tor renal functionav oid nephrotoxi c meds as ablenephro consult prn Type 2 lokesh betes mellitus without complication 869097601 E11.9 metformin 750 mg bidpioglit azone 45 mg qdmonitor blood glucose prn and need to adjust medication Hypertensive disorder 38 671766 I10 OTIS-I d/c'edmain tained onnorvasc 5 mg qdmonitor bp and need to titrate Hyperlipidemia 87762005 E78.2 lipitor 20 mg qdcontinue d Anemia 770695326 D50.8 question anemia of chronic diseasemon itor cbciron studies prn Malignant neoplasm of prostate 765792724 C61 carrying dx added to PMHmaintai toney on myrbetriq 50 mg qdcontinue d Aspirin th erapy finding 195502389 Z79.82 unsure why he is currently takingwill continue ASA 81 mg qd for now [id number] KHALIDA NESBITT NP [facility] [address] [address] 02/28/2024 12:37:20 02/29/2024 13:01:36 Urinary tract infectious disease 85581583 N39.0 Burning, dysuria finally improving; now minimal.LD IV ABT ertapenem today, consuelo. well.Curre ntly on: Myrbetriq 50 mg dailyCompl eted 3 days of sched. Phenazopyr idine 100 mg every 8 hours, prn order remains in place.Megan tor symptoms closely Acute nont raumatic kidney injury 7817255186 61352 N17.8 Remains off OTIS-inhibi torsavoid nephrotoxi c meds as ablemonito r renal functionne phro consult prn Hypomagnesemia 161234016 E83.42 Mg level on 02/27/24 2.6Reduce Mag Ox to 800 mg bidContinu e to monitor labs and need to titrate Asthenia 15092536 R53.1 DUMAS-low fall risk 02/22/24Cont inue PT OT, goal is to return homemonito r fall risk and need for increased support in community Type 2 lokesh betes mellitus without complication 476657770 E11.9 In good controlCon tinue:metf ormin 750 mg bidpioglit azone 45 mg qdmonitor blood glucose TID per pt request Hypertensive disorder 38 446719 I10 Remains off OTIS inhibitors managed with norvasc 5 mg qdContinue to monitor bp and need to titrate Anemia 145509843 D50.8 H+H stableAsym tptomaticF eSo4 325 mg dailyConti nue to monitor cbc Hyperlipidemia 44104127 E78.2 Continue lipitor 20 mg qdMonitor labs Malignant neoplasm of prostate 566526276 C61 carrying dx, PMHContinu e myrbetriq 50 mg qdMonitor sx Aspirin th erapy finding 219419721 Z79.82 unknown reason for takingCont inue ASA 81 mg qd for now Hyperkalemia 87155028 E8 7.5 02/27/24 K 5.8Not on OTIS I, ARBwas given Sodium Polystyren e Sulfonate Suspension 15 GM X 1Asymptoma ticMonitor Labs as outpt. [id number] KHALIDA NESBITT, DESEAN [facility] [address] 03/01/2024 14:48:03 03/05/2024 15:25:14 Urinary tract infectious disease 52211077 N39.0 Burning, dysuria finally resolved.C ompleted IV ertapenem, consuelo. well.VSSLa bs stable Monitor symptoms closely as outpt. Hyperkalemia 64342361 E8 7.5 02/27/24 K 5.8, repeat 02/28 5.2Not on OTIS I, ARBEncoura ge fluidsMoni tor Labs as outpt. Acute nont raumatic kidney injury 5333208829 50480 N17.8 Remains off OTIS-inhibi torsavoid nephrotoxi c meds as ablemonito r renal function - still with mild elevation in Creat - 1.49 on 02/28Encour age po fluidsMoni tor as outpt. Hypomagnesemia 498827209 E83.42 Mg level on 02/27/24 2.6Reduced Mag Ox from 800 mg tid to 800 mg bidContinu e to monitor labs and need to titrate as outpt. 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 from oral Fe - monitorCon tinue to monitor cbc Hyperlipidemia 66155498 E78.2 Continue lipitor 20 mg qdMonitor labs Malignant neoplasm of prostate 747058190 C61 carrying dx, PMHContinu e myrbetriq 50 mg qdMonitor sx Aspirin th erapy finding 465103701 Z79.82 unknown reason for takingCont inue ASA 81 mg qd for now Health Concerns Section Related Observation LastModified by Organization Detai ls LastModified Time None Recorded Concern Status LastModified by Organization Details LastModified Time None Recorded Advance Directives Directive None Recorded Payers Insurance Date Sequence Insurance Name Policy Number Policy [place] Covered Member ID [place]ova Member ID Guarantor Name 03/05/2024 [address] [facility] - DOS ON OR AFTER 2022 - MEDICARE ADVANTAGE [place] (MEDICARE REPLACEMENT/AD VANTAGE - PPO) Toni Meehan [id number] Toni Meehan Notes Date Note Type Note Provider Name and Address Organization Details Recorded Time 02/22/2024 text/html Toni is seen today for admission. He is an 88 yo male, admitted to [facility] 02/21/24 from [facility] for continued care and rehab after a brief hosp. due to low Mg., UTI, RONEY. He presented to [facility] 02/16 with weakness x 1 wk. and [...] NAD, appears much younger than stated age. fish dressing machine feeder present for visit.Overall, Toni is feeling good. [...] DM2, anemiaFull code KHALIDA NESBITT, DESEAN [address], [address], [place], [address], [facility] [employer] 02/22/2024 11:37:32 02/23/2024 text/html Toni is seen today for an acute visit. He is an 88 yo male, admitted to [facility] 02/21/24 from [facility] for continued care and rehab after a brief hosp. due to low Mg., UTI, RONEY. He presented to [facility] 02/16 with weakness x 1 wk. and [...] DM2, anemiaFull code KHALIDA NESBITT, DESEAN [address], [address], [place], [address], [facility] [employer] 02/23/2024 10:37:44 02/25/2024 text/html Patient is an 88 yo male admit from hospital after presenting with weakness, dysuria and flank pain. Noted low Mg, in ARF. Dx with UTI. PPI was held and started on Mg supplement. Eval by ID and started on ertapenem. OTIS-I d/c due to renal failure nigerian speaking drop man present PMH significant forhtnhx prostate cancerhlddmanemia admit to facility for continued care and therapy Mayo Gomez MD [address], [address], [place], [address], [facility] 02/25/2024 16:24:50 02/28/2024 text/html ROS as noted in the HPI Toni is seen today for an acute visit. He is an 88 year old male who was admitted here on 02/21/24 after hospital visit for UTI and low Mg level. Requiring continued care and rehab due to IV antibiotics and deconditioning. Toni presented to [facility] on 02/16 with weakness, dysuria, and left [...] dailyHTN - amlodipine 5 mg Since here Tnoi has been doing well.Working with rehab, getting stronger.Tolerating antibiotics well, VSS.BS mid 100s.Labs monitored and overall stable, Mg level up to 2.6. K 5.8. Given kayexalate 15 gm x 1 dose yesterday, remains on Mag Ox 800 mg tid.Due to continued complaints of dysuria last week, pyridium was scheduled for 3 days. Upon exam, Toni is feeling much better. [employer] present. Minimal dysuria. Worried that he didn't pee yet today, but was able to pass urine this afternoon. Asked if he was drinking enough, and he wasn't sure. No other complaints. Moving bowels. DUMAS: low fall risk PMH: HTN, HLD, prostate CA s/p XRT, DM2, anemiaMOLST: Full code KHALIDA NESBITT NP [address], [address], [place], [address], [facility] 02/28/2024 16:12:08 03/01/2024 text/html ROS as noted in the HPI Toni is seen today for discharge. He is an 88 year old male who was admitted to [facility] on 02/21/24 after a hospital visit for UTI and low Mg level. He required continued care and rehab due to IV antibiotics and deconditioning. Toni presented to [facility] on 02/16 with weakness, dysuria, and left [...] Upon exam, Toni is feeling much better. [employer] present. No further dysuria. Denies feeling weak or dizzy. No SOB, cough, CP. No GI upset, taking po. Reports passing some dark BM, but no BRB. Happy to be returning home. DUMAS: low fall riskPMH: HTN, HLD, prostate CA s/p XRT, DM2, anemiaMOLST: Full code KHALIDA NESBITT NP [address], [address], [place], [address], [facility] 03/01/2024 15:25:48
--- OUTSIDE RECORDS SUMMARY | 2025-05-13 19:22 | XMS_ITS | Data Portability ---
Author Organization [place] - [facility] Address [address] [place] [address] Assessment Encounter Date Assessment Date Assessment LastModified by Organization Details LastModified Time 01/05/2021 01/05/2021 Pt to provide medical records from Prev PCP at next visit. Consider labs at next f/u [email or web address] Not available 01/05/2021 15:26:09 01/12/2021 01/12/2021 Reviewed records from [place], [place] Date of last visit 10/15/20 Problem list updated. [email or web address] Not available 01/12/2021 13:07:10 01/20/2021 01/20/2021 Reviewed records from [place] Date of last visit 10/15/20 Problem list updated. [email or web address] Not available 01/20/2021 14:07:00 04/10/2021 04/10/2021 Reviewed records from [place] Date of last visit 10/15/20 Problem list updated. [email or web address] Not available 04/13/2021 08:45:42 07/15/2021 07/15/2021 Reviewed records from [place], [place] Date of last visit 10/15/20 Problem list updated. [email or web address] Not available 07/15/2021 15:03:41 Plan of Treatment Reminders Order Date Submit Date Provider Last Modified By Organization Details Last Modified Time Details Appointments None recorded. Lab CBC w/ auto diff 2020 021 MARIPOSA [facility], [address] [place], [address], 13:36:40 TIBC (total iron-bindin g capacity), serum 2020 021 MARIPOSA [facility], [address] [place], [address], 13:36:42 CMP, serum or plasma 2020 021 NULATO [facility], [address] [place], [address], 13:36:41 lipid panel, serum 2020 021 [facility], [address] [place], [address], 13:36:42 HbA1c (hemoglobin A1c), blood 2020 021 [facility], [address] [place], [address], 13:36:43 microalbumi n/creatinin e, mass ratio, urine 2020 021 [facility], [address] [place], [address], 13:36:43 urinalysis, dipstick 2020 [address] [place] [address] Care, [address], [place], [address], 10:24:06 HbA1c (hemoglobin A1c), blood 2020 021 [facility], [address] [place], [address], 13:37:08 microalbumi n/creatinin e, mass ratio, urine 2020 021 [facility], [address] [place], [address], 1 13:37:07 CMP, serum or plasma 2020 021 MARIPOSA [facility], [address] [place], [address], 1 13:37:05 lipid panel, serum 2020 021 MARIPOSA [facility], [address] [place], [address], 1 13:37:06 CBC w/ auto diff 2020 021 NULATO [facility], [address] [place], [address], 1 13:37:04 urinalysis, dipstick 2020 021 [email or web address] 81 [facility], [address], [place], [address], 14:27:26 Referral ENT referral - Reports fullness to left ear. Has insect removal 3 weeks ago- with abrasion . Txd with Ciprodex gtts x 1 week 2020 021 [email or web address] 78 [facility], [address], [place], [address], 2 17:31:06 urologist referral - urinary symptoms hx prostate cancer 2020 021 MARIPOSA Vazquez MD ([facility]), [address], [place], [address], 14:14:48 Procedures None recorded. Surgeries None recorded. Imaging None recorded. Medication Orders ferrous sulfate 325 mg (65 mg iron) tablet,abel yed release 2020 021 [facility], [address], [place], [address], 15:19:26 Vitamin C 500 mg tablet 2020 [facility], [address], [place], [address], 15:19:24 cyanocobala min (vit B-12) 1,000 mcg tablet 2020 [facility], [address], [place], [address], 15:19:25 glipizide 10 mg tablet 2020 [facility], [address], [place], [address], 15:19:25 metformin 1,000 mg tablet 2020 [facility], [address], [place], [address], 15:19:27 pioglitazon e 45 mg tablet 2020 [facility], [address], [place], [address], 15:19:27 FreeStyle Lite Strips 2020 [facility], [address], [place], [address], 15:19:25 Alcohol Prep Pads 2020 [facility], [address], [place], [address], 15:19:24 atorvastati n 20 mg tablet 2020 [facility], [address], [place], [address], 15:19:25 imipramine 10 mg tablet 2020 [facility], [address], [place], [address], 15:19:24 omeprazole 20 mg capsule,del ayed release 2020 021 [facility], [address], [place], [address], 15:19:26 lisinopril 40 mg tablet 2020 021 [facility], [address], [place], [address], 15:19:27 Adult Low Dose Aspirin 81 mg tablet,abel yed release 2020 [facility], [address], [place], [address], 15:19:25 polyethylen e glycol 3350 17 gram/dose oral powder 2020 [facility], [address], [place], [address], 13:51:07 FreeStyle Lite Strips 2020 [facility], [address], [place], [address], 13:51:07 ketorolac 30 mg/mL (1 mL) injection solution 2020 [email or web address] Not available 14:39:40 DOK 100 mg capsule 2020 [facility], [address] [place], [address], 13:40:44 ferrous sulfate 325 mg (65 mg iron) tablet,abel yed release 2020 021 [facility], [address] [place], [address], 14:11:02 Vitamin C 500 mg tablet 2020 021 [email or web address] 6 [facility], [address] [place], [address], 13:17:44 FreeStyle Lite Strips 2020 021 [facility], [address] [place], [address], 1 14:11:04 Alcohol Prep Pads 2020 021 [email or web address] 6 [facility], [address] [place], [address], 1 13:13:19 Bactrim DS 800 mg-160 mg tablet [email or web address] [place] [address] Pharmacy, [address] [place], [address], 1 15:18:27 Ciprodex 0.3 %-0.1 % ear drops,suspe nsion [email or web address] [place] [address] Pharmacy, [address] [place], [address], 1 15:04:45 pioglitazon e 45 mg tablet 2020 021 [email or web address] 6 [facility], [address] [place], [address], 09:55:51 atorvastati n 20 mg tablet 2020 021 [email or web address] 6 [facility], [address] [place], [address], 09:54:24 oxybutynin chloride ER 5 mg tablet,exte nded release 24 hr 2020 021 [email or web address] 6 [facility], [address] [place], [address], 1 09:55:30 omeprazole 20 mg capsule,del ayed release 2020 021 [email or web address] 6 [facility], [address] [place], [address], 1 09:55:25 lisinopril 40 mg tablet 2020 021 [email or web address] 6 [facility], [address] [place], [address], 09:55:15 Patient Targets Encounter Date Encounter Id Patient Goals Patient Target Last Modified By Organization Details Last Modified Time 01/05/2021 [id number] see CM plan [email or web address] Not available 01/05/2021 15:25:05 01/12/2021 [id number] see CM plan [email or web address] Not available 01/12/2021 13:19:11 01/20/2021 [id number] See CM Plan [email or web address] Not available 01/20/2021 14:09:48 04/10/2021 [id number] See CM PLan [email or web address] Not available 04/13/2021 08:46:20 07/15/2021 [id number] See CM Plan [email or web address] Not available 07/16/2021 07:55:52 Patient Instructions Encounter Date Encounter Id Patient Instructions Last Modified By Organization Details Last Modified Time 01/05/2021 [id number] Instructed on medications and follow up. Patient is aware of the clinic hours and walk in policy. Alerted patient of call service and how to use it. [email or web address] Not available 01/05/2021 15:25:11 Allergies reviewed. Treatment [...] of care today. Encounter time: 30 min. [email or web address] Not available 01/05/2021 15:25:25 01/12/2021 [id number] Instructed on medications and follow up. Patient is aware of the clinic hours and walk in policy. Alerted patient of call service and how to use it. [email or web address] Not available 01/12/2021 13:19:18 Allergies reviewed. Treatment [...] of care today. Encounter time: 30 min. [email or web address] Not available 01/12/2021 13:19:43 01/20/2021 [id number] Instructed on medications and follow up. Patient is aware of the clinic hours and walk in policy. Alerted patient of call service and how to use it. [email or web address] Not available 01/20/2021 14:09:53 Allergies reviewed. Treatment [...] of care today. Encounter time: 15 min. [email or web address] Not available 01/20/2021 14:10:14 04/10/2021 [id number] mini mental stat e exam [email or web address] Not available 04/10/2021 13:51:03 Instructed on medications and follow up. Patient is aware of the clinic hours and walk in policy. Alerted patient of call service and how to use it. [email or web address] Not available 04/13/2021 08:46:24 Allergies reviewed. Treatment [...] of care today. Encounter time: 15 min. [email or web address] Not available 04/13/2021 08:46:41 07/15/2021 [id number] eating healthy foods: care instructions [email or web address] Not available 07/15/2021 15:19:11 C MO comer alimentos saludables: instrucciones de cuidado - [eating healthy foods: care instructions] [email or web address] Not available 07/15/2021 15:19:11 fall risk assessment* Not available 10/02/2021 09:13:33 Instructed on medications and follow up. Patient is aware of the clinic hours and walk in policy. Alerted patient of call service and how to use it. [email or web address] Not available 07/16/2021 07:55:57 Allergies reviewed. Treatment [...] of care today. Encounter time: 15 min. [email or web address] Not available 07/16/2021 07:56:15 Reason for Referral Urologist Referral for Urina ry symptoms reports urinary symptoms- hx proatate ca. Needs to est. with urologist - rel[place]acted from [place] urinary symptoms hx prostate cancer Referring Physician: Carmen Rick [facility], Encounter Date: 01/05/2021 ENT Referral for Abrasion of skin of left ear fullness to left ear. Has insect removal 3 weeks ago- with abrasion . Txd with Ciprodex gtts x 1 wee Reports fullness to left ear. Has insect removal 3 weeks ago- with abrasion . Txd with Ciprodex gtts x 1 week Referring Physician: Carmen Rick [facility], Encounter Date: 01/12/2021 Results Created Date Observation Date Name Description Value Unit Range Abnormal Flag Note LastModifiedBy Organization Detail LastModifiedTime 01/06/20 21 01/05/2021 urina lysis , dipst ick leukocytes 2+ none negati ve abnormal Not Available [facility] [address], [place], [address], 01/05/2021 13:53:20 01/06/20 21 01/05/2021 urina lysis , dipst ick nitrite negati ve none negati ve normal Not Available [facility] [address], [place], [address], 01/05/2021 13:53:20 01/06/20 21 01/05/2021 urina lysis , dipst ick urobilinogen 0.2 eu/dL 0.2-1 normal Not Available [facility] [address], [place], [address], 01/05/2021 13:53:20 01/06/20 21 01/05/2021 urina lysis , dipst ick protein 1+ none negati ve abnormal Not Available [facility] [address], [place], [address], 01/05/2021 13:53:20 01/06/20 21 01/05/2021 urina lysis , dipst ick pH 7.0 none 4.6-8 normal Not Available [facility] [address], [place], [address], 01/05/2021 13:53:20 01/06/20 21 01/05/2021 urina lysis , dipst ick blood 1+ none negati ve abnormal Not Available [facility] [address], [place], [address], 01/05/2021 13:53:20 01/06/20 21 01/05/2021 urina lysis , dipst ick specific gravity 1.025 none 1.007- 1.03 normal Not Available [facility] [address], [place], [address], 01/05/2021 13:53:20 01/06/20 21 01/05/2021 urina lysis , dipst ick ketone negati ve none negati ve normal Not Available [facility] [address], [place], [address], 01/05/2021 13:53:20 01/06/20 21 01/05/2021 urina lysis , dipst ick bilirubin negati ve none negati ve normal Not Available [facility] [address], [place], [address], 01/05/2021 13:53:20 01/06/20 21 01/05/2021 urina lysis , dipst ick glucose negati ve none negati ve normal Not Available [facility] [address], [place], [address], 01/05/2021 13:53:20 01/06/20 21 01/05/2021 urina lysis , dipst ick appearance none clear Not Available [facility] [address], [place], [address], 01/05/2021 13:53:20 01/06/20 21 01/05/2021 urina lysis , dipst ick color yellow none colorl ess-am lloyd normal Not Available [facility] [address], [place], [address], 01/05/2021 13:53:20 01/06/20 21 01/05/2021 urina lysis , dipst ick clarity CLEAR clear normal Not Available [facility] [address], [place], [address], 01/05/2021 13:53:20 01/13/20 21 01/13/2021 CBC WITH DIFFE RENTI AL/PL ATELE T WBC 6.1 x10e3 /uL 3.4-10 .8 Not Available [facility] ([facility]) [address] [place], [address], 01/13/2021 13:37:04 01/13/20 21 01/13/2021 CBC WITH DIFFE RENTI AL/PL ATELE T RBC 4.13 x10e6 /uL 4.14-5 .80 below low normal Not Available [facility] ([facility]) [address] [place], [address], 01/13/2021 13:37:04 01/13/20 21 01/13/2021 CBC WITH DIFFE RENTI AL/PL ATELE T hemoglobin 11.4 g/dL 13.0-1 7.7 below low normal Not Available [facility] ([facility]) [address] [place], [address], 01/13/2021 13:37:04 01/13/20 21 01/13/2021 CBC WITH DIFFE RENTI AL/PL ATELE T hematocrit 34.9 % 37.5-5 1.0 below low normal Not Available [facility] ([facility]) [address] [place], [address], 01/13/2021 13:37:04 01/13/20 21 01/13/2021 CBC WITH DIFFE RENTI AL/PL ATELE T MCV 85 fL 79-97 Not Available [facility] ([facility]) [address] [facility], [place], [address], 01/13/2021 13:37:04 01/13/20 21 01/13/2021 CBC WITH DIFFE RENTI AL/PL ATELE T MCH 27.6 pg 26.6-3 3.0 Not Available [facility] ([facility]) [address] [facility], [place], [address], 01/13/2021 13:37:04 01/13/20 21 01/13/2021 CBC WITH DIFFE RENTI AL/PL ATELE T MCHC 32.7 g/dL 31.5-3 5.7 Not Available [facility] ([facility]) [address] [facility], [place], [address], 01/13/2021 13:37:04 01/13/20 21 01/13/2021 CBC WITH DIFFE RENTI AL/PL ATELE T RDW 14.4 % 11.6-1 5.4 Not Available [facility] ([facility]) [address] [facility], [place], [address], 01/13/2021 13:37:04 01/13/2001/13/2021 CBC WITH DIFFE RENTI AL/PL ATELE T platelets 237 x10e3 /uL 150-45 0 Not Available [facility] ([facility]) [address] [place], [address], 01/13/2021 13:37:04 01/13/20 21 01/13/2021 CBC WITH DIFFE RENTI AL/PL ATELE T neutrophils 59 % not estab. Not Available [facility] ([facility]) [address] [place], [address], 01/13/2021 13:37:04 01/13/20 21 01/13/2021 CBC WITH DIFFE RENTI AL/PL ATELE T lymphs 30 % not estab. Not Available [facility] ([facility]) [address] [facility], [place], [address], 01/13/2021 13:37:04 01/13/20 21 01/13/2021 CBC WITH DIFFE RENTI AL/PL ATELE T monocytes 9 % not estab. Not Available [facility] ([facility]) [address] [facility], [place], [address], 01/13/2021 13:37:04 01/13/20 21 01/13/2021 CBC WITH DIFFE RENTI AL/PL ATELE T eos 1 % not estab. Not Available [facility] ([facility]) [address] [facility], [place], [address], 01/13/2021 13:37:04 01/13/20 21 01/13/2021 CBC WITH DIFFE RENTI AL/PL ATELE T basos 1 % not estab. Not Available [facility] ([facility]) [address] [facility], [place], [address], 01/13/2021 13:37:04 01/13/20 21 01/13/2021 CBC WITH DIFFE RENTI AL/PL ATELE T neutrophils (absolute) 3.6 x10e3 /uL 1.4-7. 0 Not Available [facility] ([facility]) [address] [facility], [place], [address], 01/13/2021 13:37:04 01/13/20 21 01/13/2021 CBC WITH DIFFE RENTI AL/PL ATELE T lymphs (absolute) 1.8 x10e3 /uL 0.7-3. 1 Not Available [facility] ([facility]) [address] [facility], [place], [address], 01/13/2021 13:37:04 01/13/20 21 01/13/2021 CBC WITH DIFFE RENTI AL/PL ATELE T monocytes(ab solute) 0.6 x10e3 /uL 0.1-0. 9 Not Available [facility] ([facility]) [address] [place], [address], 01/13/2021 13:37:04 01/13/20 21 01/13/2021 CBC WITH DIFFE RENTI AL/PL ATELE T eos (absolute) 0.1 x10e3 /uL 0.0-0. 4 Not Available [facility] ([facility]) [address] [facility], [place], [address], 01/13/2021 13:37:04 01/13/20 21 01/13/2021 CBC WITH DIFFE RENTI AL/PL ATELE T baso (absolute) 0.0 x10e3 /uL 0.0-0. 2 Not Available [facility] ([facility]) [address] [place], [address], 01/13/2021 13:37:04 01/13/20 21 01/13/2021 CBC WITH DIFFE RENTI AL/PL ATELE T immature granulocytes 0 % not estab. Not Available [facility] ([facility]) [address] [place], [address], 01/13/2021 13:37:04 01/13/20 21 01/13/2021 CBC WITH DIFFE RENTI AL/PL ATELE T immature grans (abs) 0.0 x10e3 /uL 0.0-0. 1 Not Available [facility] ([facility]) [address] [place], [address], 01/13/2021 13:37:04 01/13/20 21 01/13/2021 COMP. METAB OLIC PANEL (14) glucose 184 mg/dL 65-99 above high normal Not Available [facility] ([facility]) [address] [place], [address], 01/13/2021 13:37:05 01/13/20 21 01/13/2021 COMP. METAB OLIC PANEL (14) BUN 20 mg/dL 8-27 Not Available [facility] ([facility]) [address] [facility], [place], [address], 01/13/2021 13:37:05 01/13/20 21 01/13/2021 COMP. METAB OLIC PANEL (14) creatinine 1.25 mg/dL 0.76-1 .27 Not Available [facility] ([facility]) [address] [facility], [place], [address], 01/13/2021 13:37:05 01/13/20 21 01/13/2021 COMP. METAB OLIC PANEL (14) eGFR if nonafricn AM 53 mL/mi n/1.7 3 >59 below low normal Not Available [facility] ([facility]) [address] [facility], [place], [address], 01/13/2021 13:37:05 01/13/20 21 01/13/2021 COMP. METAB [...] SN Task force . Not Available [facility] ([facility]) [address] [facility], [place], [address], 01/13/2021 13:37:05 01/13/20 21 01/13/2021 COMP. METAB OLIC PANEL (14) BUN/creatini ne ratio 16 10-24 Not Available [facility] ([facility]) [address] [facility], [place], [address], 01/13/2021 13:37:05 01/13/20 21 01/13/2021 COMP. METAB OLIC PANEL (14) sodium 139 mmol/ L 134-14 4 Not Available [facility] ([facility] [place] [facility]) [address] [place], [address], 01/13/2021 13:37:05 01/13/20 21 01/13/2021 COMP. METAB OLIC PANEL (14) potassium 4.9 mmol/ L 3.5-5. 2 Not Available [facility] ([facility]) [address] [place], [address], 01/13/2021 13:37:05 01/13/20 21 01/13/2021 COMP. METAB OLIC PANEL (14) chloride 102 mmol/ L 96-106 Not Available [facility] ([facility]) [address] [place], [address], 01/13/2021 13:37:05 01/13/20 21 01/13/2021 COMP. METAB OLIC PANEL (14) carbon dioxide, total 24 mmol/ L - Not Available [facility] ([facility]) [address] [place], [address], 01/13/2021 13:37:05 01/13/20 21 01/13/2021 COMP. METAB OLIC PANEL (14) calcium 9.2 mg/dL 8.6-10 .2 Not Available [facility] ([facility]) [address] [facility] [place], [address], 01/13/2021 13:37:05 01/13/20 21 01/13/2021 COMP. METAB OLIC PANEL (14) protein, total 6.2 g/dL 6.0-8. 5 Not Available [facility] ([facility]) [address] [place], [address], 01/13/2021 13:37:05 01/13/20 21 01/13/2021 COMP. METAB OLIC PANEL (14) albumin 4.2 g/dL 3.6-4. 6 Not Available [facility] ([facility]) [address], [place], [address], 01/13/2021 13:37:05 01/13/20 21 01/13/2021 COMP. METAB OLIC PANEL (14) globulin, total 2.0 g/dL 1.5-4. 5 Not Available [facility] ([facility]) [address], [place], [address], 01/13/2021 13:37:05 01/13/20 21 01/13/2021 COMP. METAB OLIC PANEL (14) A/G ratio 2.1 1.2-2. 2 Not Available [facility] ([facility]) [address], [place], [address], 01/13/2021 13:37:05 01/13/20 21 01/13/2021 COMP. METAB OLIC PANEL (14) bilirubin, total 0.3 mg/dL 0.0-1. 2 Not Available [facility] ([facility]) [address], [place], [address], 01/13/2021 13:37:05 01/13/20 21 01/13/2021 COMP. METAB OLIC PANEL (14) alkaline phosphatase 97 IU/L 48-121 Not Available [facility] ([facility]) [address] [facility], [place], [address], 01/13/2021 13:37:05 01/13/20 21 01/13/2021 COMP. METAB OLIC PANEL (14) AST (SGOT) 17 IU/L 0-40 Not Available [facility] ([facility]) [address] [facility], [place], [address], 01/13/2021 13:37:05 01/13/20 21 01/13/2021 COMP. METAB OLIC PANEL (14) ALT (SGPT) 11 IU/L 0-44 Not Available [facility] ([facility]) [address] [facility], [place], [address], 01/13/2021 13:37:05 01/13/20 21 01/13/2021 LIPID PANEL cholesterol, total 143 mg/dL 100-19 9 Not Available [facility] ([facility]) [address] [facility], [place], [address], 01/13/2021 13:37:06 01/13/20 21 01/13/2021 LIPID PANEL triglyceride s 153 mg/dL 0-149 above high normal Not Available [facility] ([facility]) [address] [facility], [place], [address], 01/13/2021 13:37:06 01/13/20 21 01/13/2021 LIPID PANEL HDL cholesterol 40 mg/dL >39 Not Available [facility] ([facility]) [address] [facility], [place], [address], 01/13/2021 13:37:06 01/13/20 21 01/13/2021 LIPID PANEL VLDL cholesterol ishmael 27 mg/dL 5-40 Not Available [facility] ([facility]) [address] [place], [address], 01/13/2021 13:37:06 01/13/20 21 01/13/2021 LIPID PANEL LDL chol calc ([facility]) 76 mg/dL 0-99 Not Available [facility] ([facility]) [address] [place], [address], 01/13/2021 13:37:06 01/13/20 21 01/13/2021 ALBUM IN/CR EAT RATIO , RANDO M UR creatinine, urine 155.9 mg/dL not estab. Not Available [facility] ([facility]) [address] [place], [address], 01/13/2021 13:37:07 01/13/20 21 01/13/2021 ALBUM IN/CR EAT RATIO , RANDO M UR albumin, urine 25.7 ug/mL not estab. Not Available [facility] ([facility]) [address] [facility], [place], [address], 01/13/2021 13:37:07 01/13/20 21 01/13/2021 ALBUM IN/CR EAT RATIO , GURINDER García UR alb/creat ratio 16 mg/g_ creat 0-29 María l: 0 - 29 Moder ately incre ased: 30 - 300 Sever royal incre ased: >300 Not Available [facility] ([facility]) [address] [facility], [place], [address], 01/13/2021 13:37:07 01/13/20 21 01/13/2021 HEMOG LOBIN A1C hemoglobin A1C 6.8 % 4.8-5. 6 above high normal . Predi abete s: 5.7 - 6.4 Diabe chel: >6.4 Glyce ad contr ol for adult s with diabe chel: <7.0 Not Available [facility] ([facility]) [address] [facility], [place], [address], 01/13/2021 13:37:08 01/13/20 21 01/12/2021 urina lysis , dipst ick leukocytes trace none negati ve abnormal Not Available [facility] [address], [place], [address], 01/12/2021 10:14:17 01/13/20 21 01/12/2021 urina lysis , dipst ick nitrite negati ve none negati ve normal Not Available [facility] [address], [place], [address], 01/12/2021 10:14:17 01/13/20 21 01/12/2021 urina lysis , dipst ick urobilinogen 0.2 eu/dL 0.2-1 normal Not Available [facility] [address], [place], [address], 01/12/2021 10:14:17 01/13/20 21 01/12/2021 urina lysis , dipst ick protein negati ve none negati ve normal Not Available [facility] [address], [place], [address], 01/12/2021 10:14:17 01/13/20 21 01/12/2021 urina lysis , dipst ick pH 5.5 none 4.6-8 normal Not Available [facility] [address], [place], [address], 01/12/2021 10:14:17 01/13/20 21 01/12/2021 urina lysis , dipst ick blood negati ve none negati ve normal Not Available [facility] [address], [place], [address], 01/12/2021 10:14:17 01/13/20 21 01/12/2021 urina lysis , dipst ick specific gravity 1.025 none 1.007- 1.03 normal Not Available [facility] [address], [place], [address], 01/12/2021 10:14:17 01/13/20 21 01/12/2021 urina lysis , dipst ick ketone negati ve none negati ve normal Not Available [facility] [address], [place], [address], 01/12/2021 10:14:17 01/13/20 21 01/12/2021 urina lysis , dipst ick bilirubin negati ve none negati ve normal Not Available [facility] [address], [place], [address], 01/12/2021 10:14:17 01/13/20 21 01/12/2021 urina lysis , dipst ick glucose negati ve none negati ve normal Not Available [facility] [address], [place], [address], 01/12/2021 10:14:17 01/13/20 21 01/12/2021 urina lysis , dipst ick appearance none clear Not Available [facility] [address], [place], [address], 01/12/2021 10:14:17 01/13/20 21 01/12/2021 urina lysis , dipst ick color yellow none colorl ess-am lloyd normal Not Available [facility] [address], [place], [address], 01/12/2021 10:14:17 01/13/20 21 01/12/2021 urina lysis , dipst ick clarity CLEAR clear normal Not Available [facility] [address], [place], [address], 01/12/2021 10:14:17 07/15/20 21 07/16/2021 CBC WITH DIFFE RENTI AL/PL ATELE T WBC 5.4 x10e3 /uL 3.4-10 .8 Not Available [facility] ([facility]) [address] [place], [address], 07/16/2021 13:36:40 07/15/20 21 07/16/2021 CBC WITH DIFFE RENTI AL/PL ATELE T RBC 4.44 x10e6 /uL 4.14-5 .80 Not Available [facility] ([facility]) [address] [place], [address], 07/16/2021 13:36:40 07/15/20 21 07/16/2021 CBC WITH DIFFE RENTI AL/PL ATELE T hemoglobin 11.8 g/dL 13.0-1 7.7 below low normal Not Available [facility] ([facility]) [address] [place], [address], 07/16/2021 13:36:40 07/15/20 21 07/16/2021 CBC WITH DIFFE RENTI AL/PL ATELE T hematocrit 36.8 % 37.5-5 1.0 below low normal Not Available [facility] ([facility]) [address] [facility], [place], [address], 07/16/2021 13:36:40 07/15/20 21 07/16/2021 CBC WITH DIFFE RENTI AL/PL ATELE T MCV 83 fL 79-97 Not Available [facility] ([facility]) [address] [facility], [place], [address], 07/16/2021 13:36:40 07/15/20 21 07/16/2021 CBC WITH DIFFE RENTI AL/PL ATELE T MCH 26.6 pg 26.6-3 3.0 Not Available [facility] ([facility]) [address] [facility], [place], [address], 07/16/2021 13:36:40 07/15/20 21 07/16/2021 CBC WITH DIFFE RENTI AL/PL ATELE T MCHC 32.1 g/dL 31.5-3 5.7 Not Available [facility] ([facility]) [address] [place], [address], 07/16/2021 13:36:40 07/15/20 21 07/16/2021 CBC WITH DIFFE RENTI AL/PL ATELE T RDW 15.4 % 11.6-1 5.4 Not Available [facility] ([facility]) [address] [place], [address], 07/16/2021 13:36:40 07/15/20 21 07/16/2021 CBC WITH DIFFE RENTI AL/PL ATELE T platelets 224 x10e3 /uL 150-45 0 Not Available [facility] ([facility]) [address] [place], [address], 07/16/2021 13:36:40 07/15/20 21 07/16/2021 CBC WITH DIFFE RENTI AL/PL ATELE T neutrophils 60 % not estab. Not Available [facility] ([facility]) [address] [facility], [place], [address], 07/16/2021 13:36:40 07/15/20 21 07/16/2021 CBC WITH DIFFE RENTI AL/PL ATELE T lymphs 28 % not estab. Not Available [facility] ([facility]) [address] [facility], [place], [address], 07/16/2021 13:36:40 07/15/20 21 07/16/2021 CBC WITH DIFFE RENTI AL/PL ATELE T monocytes 11 % not estab. Not Available [facility] ([facility]) [address] [facility], [place], [address], 07/16/2021 13:36:40 07/15/20 21 07/16/2021 CBC WITH DIFFE RENTI AL/PL ATELE T eos 1 % not estab. Not Available [facility] ([facility]) [address] [facility], [place], [address], 07/16/2021 13:36:40 07/15/20 21 07/16/2021 CBC WITH DIFFE RENTI AL/PL ATELE T basos 0 % not estab. Not Available [facility] ([facility]) [address] [facility], [place], [address], 07/16/2021 13:36:40 07/15/20 21 07/16/2021 CBC WITH DIFFE RENTI AL/PL ATELE T neutrophils (absolute) 3.1 x10e3 /uL 1.4-7. 0 Not Available [facility] ([facility]) [address] [facility], [place], [address], 07/16/2021 13:36:40 07/15/20 21 07/16/2021 CBC WITH DIFFE RENTI AL/PL ATELE T lymphs (absolute) 1.5 x10e3 /uL 0.7-3. 1 Not Available [facility] ([facility]) [address] [facility], [place], [address], 07/16/2021 13:36:40 07/15/20 21 07/16/2021 CBC WITH DIFFE RENTI AL/PL ATELE T monocytes(ab solute) 0.6 x10e3 /uL 0.1-0. 9 Not Available [facility] ([facility]) [address] [facility], [place], [address], 07/16/2021 13:36:40 07/15/20 21 07/16/2021 CBC WITH DIFFE RENTI AL/PL ATELE T eos (absolute) 0.1 x10e3 /uL 0.0-0. 4 Not Available [facility] ([facility]) [address] [facility], [place], [address], 07/16/2021 13:36:40 07/15/20 21 07/16/2021 CBC WITH DIFFE RENTI AL/PL ATELE T baso (absolute) 0.0 x10e3 /uL 0.0-0. 2 Not Available [facility] ([facility]) [address] [place], [address], 07/16/2021 13:36:40 07/15/20 21 07/16/2021 CBC WITH DIFFE RENTI AL/PL ATELE T immature granulocytes 0 % not estab. Not Available [facility] ([facility]) [address] [facility], [place], [address], 07/16/2021 13:36:40 07/15/20 21 07/16/2021 CBC WITH DIFFE RENTI AL/PL ATELE T immature grans (abs) 0.0 x10e3 /uL 0.0-0. 1 Not Available [facility] ([facility]) [address] [place], [address], 07/16/2021 13:36:40 07/15/20 21 07/16/2021 COMP. METAB OLIC PANEL (14) glucose 133 mg/dL 65-99 above high normal Not Available [facility] ([facility]) [address] [facility], [place], [address], 07/16/2021 13:36:41 07/15/20 21 07/16/2021 COMP. METAB OLIC PANEL (14) BUN 15 mg/dL 8-27 Not Available [facility] ([facility]) [address] [facility], [place], [address], 07/16/2021 13:36:41 07/15/20 21 07/16/2021 COMP. METAB OLIC PANEL (14) creatinine 1.08 mg/dL 0.76-1 .27 Not Available [facility] ([facility]) [address] [facility], [place], [address], 07/16/2021 13:36:41 07/15/20 21 07/16/2021 COMP. METAB OLIC PANEL (14) eGFR if nonafricn AM 63 mL/mi n/1.7 3 >59 Not Available [facility] ([facility]) [address] [facility], [place], [address], 07/16/2021 13:36:41 07/15/20 21 07/16/2021 COMP. METAB OLIC PANEL (14) eGFR if africn AM 73 mL/mi n/1.7 3 >59 In accor dance with recom menda tions from the NKF-A SN Task force , [facility] is in the proce ss of updat ing its eGFR calcu latio n to the 2020 CKD-E PI creat inine equat ion that estim ates kidne y funct ion witho ut a race varia ble. Not Available [facility] ([facility]) [address] [facility], [place], [address], 07/16/2021 13:36:41 07/15/20 21 07/16/2021 COMP. METAB OLIC PANEL (14) BUN/creatini ne ratio 14 10-24 Not Available [facility] ([facility]) [address] [facility], [place], [address], 07/16/2021 13:36:41 07/15/20 21 07/16/2021 COMP. METAB OLIC PANEL (14) sodium 145 mmol/ L 134-14 4 above high normal Not Available [facility] ([facility]) [address] [facility] [place], [address], 07/16/2021 13:36:41 07/15/20 21 07/16/2021 COMP. METAB OLIC PANEL (14) potassium 4.2 mmol/ L 3.5-5. 2 Not Available [facility] ([facility]) [address] [facility] [place], [address], 07/16/2021 13:36:41 07/15/20 21 07/16/2021 COMP. METAB OLIC PANEL (14) chloride 104 mmol/ L 96-106 Not Available [facility] ([facility]) [address] [facility] [place], [address], 07/16/2021 13:36:41 07/15/20 21 07/16/2021 COMP. METAB OLIC PANEL (14) carbon dioxide, total 24 mmol/ L - Not Available [facility] ([facility]) [address] [facility] [place], [address], 07/16/2021 13:36:41 07/15/20 21 07/16/2021 COMP. METAB OLIC PANEL (14) calcium 8.8 mg/dL 8.6-10 .2 Not Available [facility] ([facility]) [address] [facility] [place], [address], 07/16/2021 13:36:41 07/15/20 21 07/16/2021 COMP. METAB OLIC PANEL (14) protein, total 6.4 g/dL 6.0-8. 5 Not Available [facility] ([facility]) [address] [facility] [place], [address], 07/16/2021 13:36:41 07/15/20 21 07/16/2021 COMP. METAB OLIC PANEL (14) albumin 4.2 g/dL 3.6-4. 6 Not Available [facility] ([facility]) [address] [facility], [place], [address], 07/16/2021 13:36:41 07/15/20 21 07/16/2021 COMP. METAB OLIC PANEL (14) globulin, total 2.2 g/dL 1.5-4. 5 Not Available [facility] ([facility]) [address] [facility], [place], [address], 07/16/2021 13:36:41 07/15/20 21 07/16/2021 COMP. METAB OLIC PANEL (14) A/G ratio 1.9 1.2-2. 2 Not Available [facility] ([facility]) [address] [facility], [place], [address], 07/16/2021 13:36:41 07/15/20 21 07/16/2021 COMP. METAB OLIC PANEL (14) bilirubin, total 0.5 mg/dL 0.0-1. 2 Not Available [facility] ([facility]) [address] [facility], [place], [address], 07/16/2021 13:36:41 07/15/20 21 07/16/2021 COMP. METAB OLIC PANEL (14) alkaline phosphatase 100 IU/L 44-121 Ple ase note refer ence inter loli chinchilla e Not Available [facility] ([facility]) [address] [facility], [place], [address], 07/16/2021 13:36:41 07/15/20 21 07/16/2021 COMP. METAB OLIC PANEL (14) AST (SGOT) 15 IU/L 0-40 Not Available [facility] ([facility]) [address] [facility], [place], [address], 07/16/2021 13:36:41 07/15/20 21 07/16/2021 COMP. METAB OLIC PANEL (14) ALT (SGPT) 12 IU/L 0-44 Not Available [facility] ([facility]) [address] [place], [address], 07/16/2021 13:36:41 07/15/20 21 07/16/2021 LIPID PANEL cholesterol, total 198 mg/dL 100-19 9 Not Available [facility] ([facility]) [address] [place], [address], 07/16/2021 13:36:42 07/15/20 21 07/16/2021 LIPID PANEL triglyceride s 219 mg/dL 0-149 above high normal Not Available [facility] ([facility]) [address] [place], [address], 07/16/2021 13:36:42 07/15/20 21 07/16/2021 LIPID PANEL HDL cholesterol 50 mg/dL >39 Not Available [facility] ([facility]) [address] [place], [address], 07/16/2021 13:36:42 07/15/20 21 07/16/2021 LIPID PANEL VLDL cholesterol ishmael 38 mg/dL 5-40 Not Available [facility] ([facility]) [address] [place], [address], 07/16/2021 13:36:42 07/15/20 21 07/16/2021 LIPID PANEL LDL chol calc ([facility]) 110 mg/dL 0-99 above high normal Not Available [facility] ([facility]) [address] [place], [address], 07/16/2021 13:36:42 07/15/20 21 07/16/2021 IRON AND TIBC iron bind.cap.(TI BC) 256 ug/dL 250-45 0 Not Available [facility] ([facility]) [address] [place], [address], 07/16/2021 13:36:42 07/15/20 21 07/16/2021 IRON AND TIBC UIBC 204 ug/dL 111-34 3 Not Available [facility] ([facility]) [address] [place], [address], 07/16/2021 13:36:42 07/15/20 21 07/16/2021 IRON AND TIBC iron 52 ug/dL 38-169 Not Available [facility] ([facility]) [address] [facility], [place], [address], 07/16/2021 13:36:42 07/15/20 21 07/16/2021 IRON AND TIBC iron saturation 20 % 15-55 Not Available [facility] ([facility]) [address] [place], [address], 07/16/2021 13:36:42 07/15/20 21 07/16/2021 ALBUM IN/CR EAT RATIO , GURINDER García UR creatinine, urine 158.2 mg/dL not estab. Not Available [facility] ([facility]) [address] [place], [address], 07/16/2021 13:36:43 07/15/20 21 07/16/2021 ALBUM IN/CR EAT RATIO , GURINDERO M UR albumin, urine 36.1 ug/mL not estab. Not Available [facility] ([facility]) [address] [place], [address], 07/16/2021 13:36:43 07/15/20 21 07/16/2021 ALBUM IN/CR EAT RATIO , RANDO M UR alb/creat ratio 23 mg/g_ creat 0-29 María l: 0 - 29 Moder ately incre ased: 30 - 300 Sever royal incre ased: >300 Not Available [facility] ([facility]) [address] [place], [address], 07/16/2021 13:36:43 07/15/2007/16/2021 HEMOG LOBIN A1C hemoglobin A1C 6.9 % 4.8-5. 6 above high normal . Predi abete s: 5.7 - 6.4 Diabe chel: >6.4 Glyce ad contr ol for adult s with diabe chel: <7.0 Not Available [facility] ([facility]) [address], [place], [address], 07/16/2021 13:36:43 Result Notes None recorded. Problems Name Problem SNOMED Code Status Onset Date Resolution Date Notes Provider Name and Address Organization Details Recorded Time Essential hypertensi on 41439465 Active 2020 Li Collins [facility] 13:49:58 Diabetes mellitus 82817978 Active 2020 type2 Carmen Rick APRN [address] [place], [place], [address] [place] [address] , [facility] 13:05:29 Hyperlipid emia 92523316 Active 2020 Lijeff Garridoers [facility] 13:50:22 Primary malignant neoplasm of prostate 11027688 Active 2020 Li Dennis [facility] 13:50:55 Polyp of colon 78088219 Active 2020 Carmen Rick APRN [address] [place], [place], [address] [place] [address] , [facility] 13:04:06 Anemia of chronic disease 396419106 Active 2020 Carmen Rick APRN [address] [place], [address] [place] [address] , [facility] 13:04:48 Neurogenic urinary bladder 517757523 Active 2020 Carmen Rick APRN [address] [place], [address], [facility] 13:05:03 Gastroesop hageal reflux disease 421022777 Active 2020 Carmen Rick APRN [address] [place], [place], [address] [place] [address], [facility] 13:05:34 History of Helicobact er pylori infection 0629523946760 9108 Active 2020 Carmen Rick APRN [address] [place], [place], [address] [place] [address], [facility] 13:06:09 Sensorineu ral hearing loss of bilateral ears 774760803 Active 2020 Carmen Rick APRN [address] 13:06:24 Pain of left shoulder joint 5586463128181 9109 Active 2020 Carmen Rick APRN [address] [place] [address] , [facility], [facility] 13:14:51 Bilateral knee pain Active 2020 Carmen Rick APRN [address], [facility] 08:45:58 Memory impairment 715477778 Active 2020 Carmen Rick APRN [address] [place] [address], [facility] 08:46:00 Hematochez ia 751488370 Active 2020 Carmen Rick APRN [address] 08:46:01 Chronic constipati on 553383945 Active 2020 Carmen Rick APRN [address] [facility] 08:46:06 Hemoglobin below reference range 118490599 Active 2020 Carmen Rick APRN [address] [place], [place], [address] [place] [address] 08:46:07 Type 2 diabetes mellitus 00427305 Active 2020 Carmen Rick APRN [address] [place], [place], [address] [place] [address] 07:54:27 Urinary symptoms 112624948 Active 2020 Carmen Rick APRN [address] [place], [address] [place] [address] 07:54:29 Obesity 708216142 Active 2020 Carmen Rick APRN [address] [place], [place], [address] [place] [address] 07:54:31 Dyslipidem ia 685839062 Active 2020 Carmen Rick APRN [address] [place], [address] [place] [address] 07:54:38 Gastroesop hageal reflux disease without esophagiti s 424916290 Active 2020 Carmen Rick APRN [address] [place], [address] [place] [address] 07:54:55 Tobacco dependence in remission 240219620 Active 2020 Carmen Rick APRN [address] [place], [address] [place] [address] 07:54:57 Vaccine declined by patient 693879346370 Active 2020 Carmen Rick APRN [address] [place], [address] [place] [address] , [facility] 07:55:21 Advance directive discussed with patient 089693263 Active 2020 Carmen Rick APRN [address] [place], [address] [place] [address] 07:55:23 At increased risk for falls 647120823 Active 2020 Carmen Rick APRN [address] 07:55:24 Secondary immune deficiency disorder 23688050 Active 2020 Carmen Rick APRN [address] [place], [place], [address] [place] [address] 07:56:40 Problem Notes None recorded. Procedures Surgical History Date Name Laterality Status Provider Name and Address Organization Details Recorded Time 8 prostatectomy completed [facility] 01/05/2021 13:52:29 Imaging Results None recorded. Procedure Notes None recorded. Medical Equipment None Reported. Allergies Allergen ID Allergen Name Allergen Category Reaction Reaction Severity Criticality Documentation Date Start Date Code Code System Note Provider Name and Address Organization Details Recorded Time 83844 oxycodone medicatio n Not available Not available Not available 01/05/2021 7804 RxNorm [facility] 13:46:10 Medications Name Sig Start [...] No t Available Vitals Date Recorded Body weight Body mass index (BMI) Body height Body temperature Oxygen saturation Oxygen saturation in Arterial blood by Pulse oximetry Heart rate Respiratory rate Systolic And Diastolic Provider Name and Address Organization Details Last Updated DateTime 1 37621.6 4 g 32.3 kg/m2 156.21 cm 97.6 [degF] 98 % 98 % 97 /min 18 /min 129/68 mm[Hg] Li Collins [facility] 13:45:40 Date Recorded Body height Body mass index (BMI) Body weight Heart rate Respiratory rate Body temperature Oxygen saturation Oxygen saturation in Arterial blood by Pulse oximetry Systolic And Diastolic Provider Name and Address Organization Details Last Updated DateTime 1 156.21 cm 31.8 kg/m2 27719.3 g 98 /min 17 /min 98 [degF] 97 % 97 % 126/76 mm[Hg] [facility] 09:52:13 Date Recorded Body height Body mass index (BMI) Body weight Provider Name and Address Organization Details Last Updated DateTime 01/20/2021 156.21 cm 31.6 kg/m2 81629.7 g Liyahemma Lockhart [facility] 01/20/2021 13:41:21 Date Recorded Body height Body mass index (BMI) Body weight Respiratory rate Body temperature Oxygen saturation Oxygen saturation in Arterial blood by Pulse oximetry Heart rate Systolic And Diastolic Provider Name and Address Organization Details Last Updated DateTime 1 156.21 cm 32 kg/m2 45201.8 9 g 18 /min 98.3 [degF] 99 % 99 % 77 /min 122/78 mm[Hg] [facility] 13:12:46 Date Recorded Body height Body mass index (BMI) Body weight Heart rate Respiratory rate Body temperature Oxygen saturation Oxygen saturation in Arterial blood by Pulse oximetry Systolic And Diastolic Provider Name and Address Organization Details Last Updated DateTime 1 156.21 cm 32 kg/m2 09838.5 9 g 96 /min 18 /min 98.1 [degF] 97 % 97 % 124/81 mm[Hg] Mylene Snell [facility] 14:57:50 Social History Question Answer Notes LastModified by Organizat ion Details LastModified Time Tobacco Smoking Status Never Smoker Li Collins [facility] 01/05/2021 13:51:55 Medical Terms Are Complicated, And Many People Find The Words Difficult To Understand. Do You Ever Get Help From Others In Filling Out Forms, Reading Prescription Labels, Insurance Forms, Or Health Education Sheets? Often [email or web address] Information no t available 01/12/2021 Are You Worried About Losing Your Housing? No [email or web address] Information not available 01/12/2021 In The Past Year Have You Or Any Of Your Family Members Been Unable To Get MAGNET PLACER When It Was Really Needed? No Information n ot available 01/12/2021 In The Past Year Have You Or Any Of Your Family Members Been Unable To Get CLOTHING When It Was Really Needed? No [email or web address] Information n ot available 01/12/2021 In The Past Year Have You Or Any Of Your Family Members Been Unable To Get FOOD When It Was Really Needed? No [email or web address] Information not available 01/12/2021 In The Past Year Have You Or Any Of Your Family Members Been Unable To Get MEDICINE Or HEALTH CARE When It Was Really Needed? No [email or web address] Information not available 01/12/2021 In The Past Year Have You Or Any Of Your Family Members Been Unable To Get PHONE When It Was Really Needed? No [email or web address] Information not available 01/12/2021 In The Past Year Have You Or Any Of Your Family Members Been Unable To Get UTILITIES When It Was Really Needed? No [email or web address] Information n ot available 01/12/2021 Has Lack Of Transportation Kept You From Medical Appointments, Meetings, Work, Or From Getting Things Needed For Daily Living? No [email or web address] Information not available 01/12/2021 In The Past Year Have You Or Any Of Your Family Members Been Unable To Get OTHER NECESSITIES When It Was Really Needed? No [email or web address] Information not available 01/12/2021 How Often Do You See Or Talk To People That You Care About And Feel Close To? 3 To 5 Times A Week [email or web address] Information not available 01/12/2021 How Stressed Are You? Somewhat [email or web address] Information not available 01/12/2021 In The Past Year, Have You Spent More Than 2 Nights In A Row In A Penitentiary, Penitentiary, Longterm Center, Or Juvenile Correctional Facility? No [email or web address] Information not available 01/12/2021 Are You A Refugee? No [email or web address] Inform ation not available 01/12/2021 Do You Feel Physically And Emotionally Safe Where You Currently Live? Yes [email or web address] Information not available 01/12/2021 What Was The Date Of Your Most Recent Tobacco Screening? 07/15/2021 [email or web address] Information n ot available 07/15/2021 Sex: Male Functional Status Question Answer Note LastModified by Organization D etails LastModified Time Do you or have you ever used any other forms of tobacco or nicotine? No [email or web address] Information not available 01/05/2021 What is your occupation? N/A [email or web address] Information not available 01/05/2021 Mental Status None recorded. Family History Relationship Description Onset Age of this Age Resolved Age Notes LastModified by Organization Details LastModified Time Mother Family history of stroke Not available 01/05 13:51:17 Father History of [email or web address] Not available 01/05 13:51:37 Father Family history of stroke [email or web address] Not available 01/05 13:51:40 Notes:. Medical History Condition Response Diabetes Y High Cholesterol Y Hypertension Y Immunizations Vaccine Type Date Status Note Provider Nam e and Address Organization Details Recorded Time COVID-19, mRNA, LNP-S, PF, 100 mcg/0.5mL dose or 50 mcg/0.25mL dose 09/25/2020 completed Kerwin Anaya [facility] 04/10/2021 13:13:04 Influenza, high-dose, quadrivalent, PF 03/31/2021 completed Mylene Snell [facility] 07/15/2021 14:58:12 Past Encounters Encounter ID Performer Location Encounter Start Date Encounter Closed Date Diagnosis/Indication Diagnosis SNOMED-CT Code Diagnosis ICD10 Code Diagnosis IMO Codes Diagnosis Note [id number] Carmen Rick APRN [facility] [address] [place] [address] 01/05/2021 13:30:14 01/05/2021 14:52:38 Obesity 012426524 E66.9 Diet education 84130265 Z71.3 Urinary symptoms 2466744 08 R39.9 burning with urgency.Hx prostatect jose luis Abrasion o f skin of left ear 3833626969 5010700 S00.412A Avoid Q- Tips.Hx Insect Left ear s/p removal 3 weeks ago. Type 2 dom betes mellitus 90358345 E11.9 Reports glucose under control Dyslipidemia 974769049 E 78.5 Pt to bring in records from prev. PCP Essential hypertension 03864774 I10 BP: 129/68 Dribbling of urine 63039 000 N39.43 REfill requested. Urology referral placed Gastroesop hageal reflux disease without esophagitis 987511127 K21.9 STable Acute urin willis tract infection 663507959 N39.0 UA with 2+ LE's, protein and 1+ blood.Rx Bactrim. [id number] Carmen Rick APRN [facility] [address] [place] [address] 01/12/2021 09:41:48 01/12/2021 10:40:58 Obesity 495858871 E66.9 Diet education 41642690 Z71.3 Urinary symptoms 4245181 08 R39.9 burning with urgency.Hx prostatect omyUrology referral [email or web address] Completed course of abx after (+) UA.UA recheck today Abrasion o f skin of left ear [id number] 8022322 S00.412A Avoid Q- Tips.Hx Insect Left ear s/p removal 3 weeks ago. 01/12: Left Ear improved - reports fullness . Cerumen has softened, still with dried blood to left ear canal partially obscuring the TM. Type 2 dom betes mellitus 20121500 E11.9 Reports glucose under controlPer medical records 10/15/20: HgbA1c 7.7. Onmetformi n 100mg po BID, Actos 45mg daily and Glipizide 10mg po BID. Dyslipidemia 178746868 E 78.5 Lipitor 20mg at HS Essential hypertension 66439631 I10 BP 126/76 Follow Low salt diet.On Lisinopril 40mg po daily , was on Amlodipine 10mg po daily?Dorothea y ASA 81mg Dribbling of urine 99017 000 N39.43 REfill requested. Urology referral placed Gastroesop hageal reflux disease without esophagitis 467681044 K21.9 STable Acute urin willis tract infection 746207411 N39.0 UA with 2+ LE's, protein and 1+ blood.Rx Bactrim. 01/12/21 improved recheck UA today Tobacco de pendence in remission 715328034 F17.201 Primary ma lignant neoplasm of prostate 51991454 C61 Dx in 1992, s/[place] prostatect [place] 1992. Urologist Dr Jayna maldonado , last seen Apr 2020. Hx hypogonadi sm, neurogenic bladder and recurrent UTI.Last PSA 0.11 05/01/19 Neurogenic urinary bladder 822151583 N31.9 Last seen by urol 05/06. Impramine 10mg po BID and Oxybutnin 5mg at HS Pain of le ft shoulder joint 3691877510 1883209 M25.512 mild joint arthritis per imaging 09/2017He declined PT previously . [id number] Carmen Rick APRN [facility] [address] [place] [address] 01/20/2021 13:34:36 01/20/2021 15:33:54 Obesity 308186844 E66.9 Diet education 74943767 Z71.3 Urinary symptoms 3941768 08 R39.9 burning with urgency.Hx prostatect omyUrology referral [id number] Completed course of abx after (+) UA.UA recheck today 01/20/21 UA with trace LE's. No blood. Referral approved to see Dr. Vazquez- pt to schedule appt. Abrasion o f skin of left ear 0422686721 4663764 S00.412A Avoid Q- Tips.Hx Insect Left ear s/p removal 3 weeks ago. 01/12: Left Ear improved - reports fullness . Cerumen has softened, still with dried blood to left ear canal partially obscuring the TM. 01/20/21 Referral to ENT/ [facility] approved. Type 2 dom betes mellitus 99884857 E11.9 Reports glucose under controlPer medical records 10/15/20: HgbA1c 7.7. On metformin 100mg po BID, Actos 45mg daily and Glipizide 10mg po BID. 01/20/21 HgbA1c: 6.8. Cont with current med regimen. On metformin 100mg po BID, Actos 45mg daily and Glipizide 10mg po BID. Dyslipidemia 620658407 E 78.5 Lipitor 20mg at HS07/06/21 Tot chol. 143, Trig 153, LDL 76Cont with Lipitor 20mg at HS Essential hypertension 14471381 I10 BP 126/76 Follow Low salt diet.On Lisinopril 40mg po daily , was on Amlodipine 10mg po daily?Dorothea y ASA 81mg 01/20/21 Cont with current med regimen Dribbling of urine 41583 000 N39.43 REfill requested. Urology referral [id number] 01/05: To see Dr. Vazquez Gastrogavinop hageal reflux disease without esophagitis 897750627 K21.9 STable Acute urin willis tract infection 699446171 N39.0 UA with 2+ LE's, protein and 1+ blood.Rx Bactrim. 01/12/21 improved recheck UA today 01/20/21: UA with trace LE's, no Blood. Tobacco de pendence in remission 016275644 F17.201 Primary ma lignant neoplasm of prostate 96247192 C61 Dx in 1992, s/[place] prostatect [place] in [place] 1992. Urologist Dr Jayna maldonado , last seen Apr 2020. Hx hypogonadi sm, neurogenic bladder and recurrent UTI.Last PSA 0.11 05/01/19 Neurogenic urinary bladder 908399831 N31.9 Last seen by urol 05/06. Impramine 10mg po BID and Oxybutnin 5mg at HS Pain of le ft shoulder joint 8666692769 2402666 M25.512 mild joint arthritis per imaging 09/2017He declined PT previously . Hemoglobin below reference range 027352749 D64.9 Hgb 11.4, HCT 34.9. Normal MCV and MCH. Hx anemia of chronic diseasePt case entered for Fe Panel, Ferritin , & FIT Chronic constipation 236 757534 K59.09 Test resul t to patient by telephone 852870903 Z71.2 Labs reviewed [id number] Carmen Rick APRN [facility] [address] [place] [address] 04/10/2021 12:47:04 04/10/2021 13:55:11 Obesity 631783320 E66.9 Pt educated on importance of lifestyle modificati on which should include but not limited to an exercise regime and diet modificati on as discussed on visit. Diet education 09804143 Z71.3 Urinary symptoms 9763974 08 R39.9 burning with urgency.Hx prostatect omyUrology referral [id number] Completed course of abx after (+) UA.UA recheck today 01/20/21 UA with trace LE's. No blood. Referral approved to see Dr. Vazquez- pt to schedule appt. 04/10/21 Prostate f/u, pt reports he has frequency and blood coming from his rectum.-He needs GI/PCP for his constipati on and blood per rectum.[place] el regimen discussed as it can also be worsen his LUTS.Sampl e of myrbetriq given for his LUTSF/U: in 4 weeksPt reports improvemen t of LUTS Abrasion o f skin of left ear 5605124861 6915214 S00.412A Avoid Q- Tips.Hx Insect Left ear s/p removal 3 weeks ago. 01/12: Left Ear improved - reports fullness . Cerumen has softened, still with dried blood to left ear canal partially obscuring the TM. 01/20/21 Referral to ENT/ [facility] approved. 04/10/21 ENT f/u completed. FB removed. Type 2 dom betes mellitus 44773212 E11.9 Reports glucose under controlPer medical records 10/15/20: HgbA1c 7.7. On metformin 100mg po BID, Actos 45mg daily and Glipizide 10mg po BID. 01/20/21 HgbA1c: 6.8. Cont with current med regimen. On metformin 100mg po BID, Actos 45mg daily and Glipizide 10mg po BID. 04/10/21 c/w metformin 100mg po BID, Actos 45mg daily and Glipizide 10mg po BID. Dyslipidemia 059638175 E 78.5 Lipitor 20mg at HS01/20/21 Tot chol. 143, Trig 153, LDL 76Cont with Lipitor 20mg at HS Essential hypertension 64452320 I10 BP 126/76 Follow Low salt diet.On Lisinopril 40mg po daily , was on Amlodipine 10mg po daily?Dorothea y ASA 81mg 01/20/21 Cont with current med regimenBP eculfq61/11/05 stop amlodipine 10mg po daily ? 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 Urologist Dr Dorantes i , last seen Apr 2020. Hx hypogonadi sm, neurogenic bladder and recurrent UTI.Last PSA 0.11 05/01/1909 Urology appt completed for LUTS Neurogenic urinary bladder 260430746 N31.9 Last seen by urol 05/06. Impramine 10mg po BID and Oxybutnin 5mg at HS Pain of le ft shoulder joint 0328362246 1638013 M25.512 mild joint arthritis per imaging 09/2017He declined PT previously . Hemoglobin below reference range 811779875 D64.9 Hgb 11.4, HCT 34.9. Normal MCV and MCH. Hx anemia of chronic diseasePt case entered for Fe Panel, Ferritin , & FIT Chronic constipation 236 561272 K59.09 No improvemen t with Colace Hematochezia 495212905 K 92.1 CBC 01/12/21 with Hgb 11.4, Hct 34.9Pt reporting rectal bleeding to urologistG I referral provided to pt in person Memory impairment 616407 006 R41.3 MMSE 24Dtr reported concern with memory Bilateral knee pain 1187 003418 8183075 M25.561 M25.562 Pt refuses Ortho referral or steroids [id number] Carmen Rick APRN [facility] [address] [place] [address] 07/15/2021 14:34:11 07/15/2021 16:00:16 Obesity 386360375 E66.9 Pt educated on importance of lifestyle modificati on which should include but not limited to an exercise regime and diet modificati on as discussed on visit. Diet education 89959530 Z71.3 Urinary symptoms 4326386 08 R39.9 burning with urgency.Hx prostatect omyUrology referral [email or web address] Completed course of abx after (+) UA.UA recheck today 01/20/21 UA with trace LE's. No blood. Referral approved to see Dr. Vazquez- pt to schedule appt. 04/10/21 Prostate f/u, pt reports he has frequency and blood coming from his rectum.-He needs GI/PCP for his constipati on and blood per rectum.[place] el regimen discussed as it can also be worsen his LUTS.Sampl e of myrbetriq given for his LUTSF/U: in 4 weeksPt reports improvemen t of LUTS Type 2 dom betes mellitus 41134826 E11.9 Reports glucose under controlPer medical records [...] 07/15/21 Pt reports home glucose good Dyslipidemia 166956891 E 78.5 Lipitor 20mg at HS01/20/21 Tot chol. 143, Trig 153, LDL 76Cont with Lipitor 20mg at HS Essential hypertension 94960329 I10 BP 126/76 Follow Low salt diet.On Lisinopril 40mg po daily , was on Amlodipine 10mg po daily?Dorothea y ASA 81mg 01/20/21 Cont with current med regimenBP qosdnm48/2 11/05 stop amlodipine 10mg po daily ? pedal edema x 1 weekand Follow low salt diet Has been taking amlodipine 10mg, 1/2 tablet daily- less pedal edema . BP 124/81 Gastroesop hageal reflux disease without esophagitis 019332943 K21.9 STable Tobacco de pendence in remission 281913863 F17.201 Primary ma lignant neoplasm of prostate 75292940 C61 Dx in 1992, s/[place] prostatect [place] [address]. Urologist Dr Jayna maldonado , last seen Apr 2020. Hx hypogonadi sm, neurogenic bladder and recurrent UTI.Last PSA 0.11 05/01/1909 / Urology appt completed for LUTS Neurogenic urinary bladder 318736023 N31.9 Last seen by urol 05/06. Impramine 10mg po BID and Oxybutnin 5mg at HS Pain of le ft shoulder joint 8308230239 4041010 M25.512 mild joint arthritis per imaging 09/2017He declined PT previously . Hemoglobin below reference range 854229977 D64.9 Hgb 11.4, HCT 34.9. Normal MCV and MCH. Hx anemia of chronic diseasePt case entered for Fe Panel, Ferritin , & FIT Chronic constipation 236 538689 K59.09 No improvemen t with Colace Hematochezia 188843170 K 92.1 CBC 01/12/21 with Hgb 11.4, Hct 34.9Pt reporting rectal bleeding to urologistG I referral provided to pt in person 07/15/21 Pt has not made appt with GI - referral provided to pt in person Memory impairment 860248 006 R41.3 MMSE 24Dtr reported concern with memory Bilateral knee pain 1187 897018 0858585 M25.561 M25.562 Pt refuses Ortho referral or steroids Vaccine de clined by patient 2178806780 02 Z28.20 Pt declines shingles, Tdap vaccine Advance di rective discussed with patient 243666040 Z71.89 PT reports he has living will [facility] 077439874 Z91.81 Secondary immune deficiency disorder 42347819 D84.9 T2DM Health Concerns Section Related Observation LastModified by Organization Detai ls LastModified Time None Recorded Concern Status LastModified by Organization Details LastModified Time None Recorded Advance Directives Directive None Recorded Payers Insurance Date Sequence Insurance Name Policy Number Policy [place] Covered Member ID [place] Member ID Guarantor Name 08/21/2021 3 [place] Toni Cardenas [id number] Toni Cardenas Meehan 08/27/2022 2 [facility] - DOS PRIOR TO 2022 - DUAL ELIGIBLE (MEDICARE REPLACEMENT/AD VANTAGE - HMO) Toin Cardenas Meehan [id number] Toni Cardenas Meehan 05/14/2021 [facility]oni Cardenas [id number] Toni Cardenas Meehan 08/21/2021 [place]: [facility] Toni Cardenas [id number] Toni Cardenas Meehan 04/10/2021 1 [facility] - DOS PRIOR TO 2022 - DUAL ELIGIBLE (MEDICARE REPLACEMENT/AD VANTAGE - HMO) Toni Cardenas Meehan [id number] Toni Cardenas Meehan 01/05/2021 1 *SELF PAY* Hi daron Cardneas Meehan 08/27/2022 1 [facility] (MEDICAID REPLACEMENT - HMO) Toni Cardenas [id number] Toni Cardenas Meehan 01/26/2021 1 [place] Toni Cardenas [id number] Toni Cardenas Meehan Notes Date Note Type Note Provider Name and Address Organization Details Recorded Time 01/05/2021 text/html ROS as noted in the [facility] 85-year-old male New patient. Patient is here to establish care. Patient reports recent relocation from [place]. He is accompanied by his daughter lela at today's visit. Patient is reporting left ear pain for the past 3 weeks. Patient shares a had insect removed from ear at [facility]. Continues to have pain and itchiness. Patient also reports burning with urination, urgency and foul odor. He has history of prostatectomy. Needs to establish with a local urologist. Past medical history type 2 diabetes, hypertension, dyslipidemia , GERD colonoscopy:Annual: Eye Exam: Carmen Rick APRN [address] [place], [address], [facility]. 01/05/2021 15:27:02 01/12/2021 text/html ROS as noted in the [facility] 85-year-old male New patient. Patient is here to establish care. Patient reports recent relocation from [place]. He is accompanied by his daughter lela at today's visit. Patient is reporting left ear pain for the past 3 weeks. Patient shares a had insect removed from ear at [facility]. Continues to have pain and itchiness. Patient also reports burning with urination, urgency and foul odor. He has history of prostatectomy. Needs to establish with a local urologist. Past medical history type 2 diabetes, hypertension, dyslipidemia , GERD 06/28/21 85 yo male EP. Here for f/u reports improvement of urine .- still with left ear fullness, no pain or ringing. colonoscopy: Annual: Eye Exam: 03/25/20 - no retinopathy Carmen Rick APRN [address] [place], [address], [facility], [facility]. 01/12/2021 13:20:14 01/20/2021 text/html ROS as noted in the [facility] 85-year-old male New patient. Patient is here to establish care. Patient reports recent relocation from [place]. He is accompanied by his daughter lela [...] Exam: 03/25/20 - no retinopathy Carmen Rick APRN [address] [place], [address], [facility] 01/20/2021 14:35:26 04/10/2021 text/html ROS as noted in the [facility] 85-year-old male New patient. Patient is here to establish care. Patient reports recent relocation from [place]. He is accompanied by his daughter lela [...] Exam: 03/25/20 - no retinopathy Carmen Rick APRN [address] [place], [address] - [facility] 04/13/2021 08:48:16 07/15/2021 text/html ROS as noted in the [facility] 85-year-old male New patient. Patient is here to establish care. Patient reports recent relocation from [place]. He is accompanied by his daughter lela [...] shares that he may be returning to [facility]. colonoscopy: GI referral initiatedAnnual:Eye Exam: 03/25/20 - no retinopathy Carmen Rick APRN [address] [place], [address], [facility] - [facility]. 07/16/2021 07:57:05
--- OUTSIDE RECORDS SUMMARY | 2025-05-13 19:22 | XMS_ITS | Encounter Summary ---
Author Organization [employer] Address [address] [facility] 7t [place] [address] Care Team Providers Care Telecine Operator Name Role Phone Jolly London MD Primary Care Provider [phone] Javier Benton PharmD Unavailable [phone] Reason for Visit * Reason Comments Med Refill Encounter Details Date Type Department Care Team ([facility] st Contact Info) Description 11/13/2023 Refill [facility]INE [address] [place], [place] [phone] Jolly London MD [address] [place], [place] [phone] Social History Tobacco Use Types Packs/Day Years [...] t he electric, gas, oil or water [employer] threatened to shut off services in your [...] Description 05/27/2025 9:00 AM EST Office Visit [facility] MED[facility]INE [address] [place] [address] [phone] Jolly London MD [address] [place] [phone] 06/10/2025 2:00 PM EST Medication Management [facility]INE [address] [place] [phone] Javier Benton, PharmDiamond [address] [place] [phone] documented as of this encounter Goals Goal [...] documented as of this encounter Care Teams Telecine Operator Relationship Specialty Start Date End Date Jolly London MD [address] [place] [address] [phone] PCP - General Family Medicine 06/29/12 Javier Benton, AreliD [address] [place] [address] [phone] Pharmacist Internal Medicine 01/14/23 documented as of this encounter
--- OUTSIDE RECORDS SUMMARY | 2025-05-13 19:22 | XMS_ITS | Encounter Summary ---
Author Organization [employer] Address [address] [facility] 7t [place] [address] Care Team Providers Care Scrap Breaker Name Role Phone Jolly London MD Primary Care Provider [phone] Javier Benton PharmD Unavailable [phone] Encounter Details Date Type Department Care Team ([facility] st Contact Info) Description 12/14/2023 Orders Only [facility] MEDICINE [address] [place], [place] [phone] Jolly London MD [address] [place], [place] [phone] Social History Tobacco Use Types Packs/Day Years [...] Description 05/27/2025 9:00 AM EST Office Visit [facility] MEDICINE [address] [place] [address] Jolly London MD [address] [place] [address] [phone] 06/10/2025 2:00 PM EST Medication Management [address] [phone] Javier Benton PharmD [address] [place] [address] documented as of this encounter Goals Goal [...] documented as of this encounter Care Teams Scrap Breaker Relationship Specialty Start Date End Date Jolly London MD [address] [place] [address] [phone] PCP - General Family Medicine 06/29/12 Javier Benton PharmD [address] [place] [address] [phone] Pharmacist Internal Medicine 01/14/23 documented as of this encounter
--- OUTSIDE RECORDS SUMMARY | 2025-05-13 19:23 | XMS_ITS | Encounter Summary ---
Author Organization [employer] Address [address] [facility] [address]t [place] [address] Care Team Providers Care Steel Pan Form Placing Supervisor Name Role Phone Jolly London MD Primary Care Provider [phone] Javier Benton PharmD Unavailable [phone] Encounter Details Date Type Department Care Team ([facility] st Contact Info) Description 05/08/2025 Telephone [facility] MEDICINE [address] [place], [place] [phone] Nata Hogan RN Social History Tobacco Use Types Packs/Day Years [...] encounter Miscellaneous Notes * Telephone Encounter - Nata Hogan RN - 05/08/2025 2:25 PM EDT ----- Message from Tarahpriti Faust sent at 05/08/2025 12:49 PM EDT ----- Please can you inform the patient that an order was put in for echo to check his heart because of the continued swelling of both feet. Also he will get a call when his compression stockings are ready Thank you documented in this encounter Plan of Treatment Upcoming Encounters Date Type Department Care Team (Late st Contact Info) Description 05/27/2025 9:00 AM EST Office Visit [facility] MEDICINE [address] [place] [phone] Jolly London MD [address] [place] [address] 06/10/2025 2:00 PM EST Medication Management [facility] [address] [place] [address] Javier Benton, Marc [address] [place] [phone] documented as of this encounter Goals Goal [...] documented as of this encounter Care Teams Steel Pan Form Placing Supervisor Relationship Specialty Start Date End Date Jolly London MD [address] [place] [address] PCP - General Family Medicine 06/29/12 Javier Benton, PharmD [address] [place] [address] Pharmacist Internal Medicine 01/14/23 documented as of this encounter
--- OUTSIDE RECORDS SUMMARY | 2025-05-13 19:23 | XMS_ITS | Encounter Summary ---
Author Organization [employer] Address [address] [facility] 7t [place] [address] Care Team Providers Care Licensed Physical Therapy Assistant Name Role Phone Jolly London MD Primary Care Provider [phone] Javier Benton PharmD Unavailable [phone] Reason for Visit * Reason Onset Date Comments Hospital Follow-up 04/10/2025 Encounter Details Date Type Department Care Team ([facility] st Contact Info) Description 04/10/2025 Telephone [facility] MEDICINE [address] [place] [address] Jolly London MD [address] [place], [place] [phone] Hospital Follow-up Social History Tobacco Use Types [...] encounter Miscellaneous Notes * Telephone Encounter - Parviz Cotto - 04/10/2025 10:28 AM EDT Tc from [place] with lokesh au requesting a HDF appt. Hospital: [facility] Date of admission: Lokesh [place](04/04/2025) Discharge date: 04/11/2025 Diagnosed: Sacrum fracture *Send message to [place] [facility] Coordinators Contact pt at [phone] documented in this encounter Plan of Treatment Upcoming Encounters Date Type Department Care Team (Late st Contact Info) Description 05/27/2025 9:00 AM EST Office Visit [facility] MEDICINE [address] [place] [phone] Jolly London MD [address] [place] [address] 06/10/2025 2:00 PM EST Medication Management [address] [address] Javier Benton, PharmD [address] [place] [phone] documented as of this encounter Goals Goal [...] as of this encounter Care Teams Licensed Physical Therapy Assistant Relationship Specialty Start Date End Date Jolly London MD [address] [place] [address] PCP - General Family Medicine 06/29/12 Javier Benton, PharmD [address] [place] [address] Pharmacist Internal Medicine 01/14/23 documented as of this encounter
--- OUTSIDE RECORDS SUMMARY | 2025-05-13 19:23 | XMS_ITS | Clinical Summary ---
Author Organization [employer] Address [address] [place] [address] [address] [place] [address] Care Team Providers Care Office Administrative Assistant Name Role Phone Jolly Constantino MD Primary Care Provider [phone] Javier Benton PharmD Unavailable [phone] Allergies Active Allergy Reactions Criticality Noted Date [...] Blood Pressure kit Active COVID-19 At-Home Test kitIndications: At increased risk of exposure to COVID-19 virus [...] skin. 385 g 3 02/22/20 23 Active benzonatate (Tessalon) 200 MG capsule Take 1 capsule (200 mg) by mouth if needed in the morning, at noon, and at bedtime for cough. Do not crush or chew. 60 capsule 1 01/25/20 24 Active FreeStyle lancets 1 each by Other route before breakfast, before lunch, and before evening meal. TEST BLOOD SUGAR 3 TIMES A DAY 100 each 11 04/16/20 24 Active amLODIPine (Norvasc) 5 MG tabletIndicatio ns:Primary hypertension TAKE 1 TABLET BY MOUTH EVERY [...] Active Alcohol Swabs (Alcohol Prep) 70 % padsIndications :Type 2 diabetes mellitus with hyperglycemia, without long-term current use of insulin (HCC) USE TO CHECK BLOOD SUGAR DIRECTED 100 each 5 09/27/19 25 Active furosemide (Lasix) 20 MG tablet Take 1 tablet (20 mg) by mouth Once per day. 90 tablet 3 10/11/19 25 026 Active pioglitazone (Actos) 45 MG tablet TAKE 1 TABLET BY MOUTH EVERY EVENING 90 tablet 3 12/20/19 25 Active Ascorbic Acid (vitamin C) 500 MG tablet TAKE 1 TABLET BY MOUTH AT BEDTIME 90 tablet 3 12/20/19 25 Active Aspirin Low Dose 81 MG EC tablet TAKE 1 TABLET BY MOUTH EVERY MORNING 90 tablet 3 12/26/19 25 Active Ferrous Sulfate (iron) 325 (65 Fe) MG tablet TAKE 1 TABLET BY MOUTH TWICE DAILY IN THE MORNING AND AT BEDTIME 180 tablet 02/21/20 25 Active magnesium oxide (Mag-Ox) 400 MG tablet TAKE 1 TABLET BY MOUTH EVERYDAY AT NOON 90 tablet 02/21/20 25 Active lidocaine (Lidoderm) 5 % patchIndication s:Right buttock pain Apply 1 patch topically Once per day. Remove & discard patch within 12 hours or as directed by MD. 30 patch 02/26/20 25 Active Diclofenac Sodium 1 % gel Apply to affected area once or twice daily as needed for pain 150 g 02/26/20 25 Active acetaminophen (Tylenol Extra Strength) 500 MG tablet Take one or two tablets by mouth every 8 hours as needed for pain or fever. Maximum 6 tablets per day. 90 tablet 1 03/04/20 25 Active FREESTYLE LITE test stripIndication s:Type 2 diabetes mellitus with hyperglycemia, without long-term current use of insulin (HCC) USE DIRECTED TO TEST BLOOD SUGAR THREE TIMES DAILY 100 strip 5 04/22/20 25 Active atorvastatin (Lipitor) 40 MG tabletIndicatio ns:Dyslipidemia Take 1 tablet (40 mg) by mouth at bedtime. 90 tablet 3 04/29/20 25 Active FREESTYLE LITE test stripIndication s:Type 2 diabetes mellitus with hyperglycemia, without long-term current use of insulin (HCC) USE DIRECTED TO TEST BLOOD SUGAR THREE TIMES DAILY 100 strip 5 10/25/19 25 025 Discontinued atorvastatin (Lipitor) 40 MG tabletIndicatio ns:Dyslipidemia TAKE 1 TABLET BY MOUTH AT BEDTIME 90 tablet 02/21/20 25 025 Discontinued(Re order (will not trigger notification to Pharmacy)) Active Problems Problem Noted Date Diagnosed Date Dependent edema 05/07/2025 Fracture of removable partial denture 12/06/2024 Tinnitus [...] (03/04/2025 8:41 AM EDT): - Seen in [facility] ED on 09/17/24, questionable - patient claims that he did not have vision problem. However, he is high-risk for CVA / TIA - continue ASA - continue optimizing chronic disease management - continue working on lifestyle modificaitons Assessment & Plan (11/19/2024 4:11 PM EDT): - Seen in [facility] ED on 09/17/24, questionable - patient claims that he did not have vision problem. However, he is high-risk for CVA / TIA - continue ASA - continue optimizing chronic disease management - continue working on lifestyle modificaitons Assessment & Plan (09/28/2024 9:47 AM EDT): - Seen in [facility] ED on 09/17/24, questionable [...] delivery service. Patient tried once, but preferred [place] foods to typical [place] foods. Patient is willing to try again. - currently going to [employer] restaurant for lunch as a part of service from [facility]. - discussed with patient's pulmonary care nurse about getting a STORE OPERATIONS MANAGER who can cook for him and eat [...] anemia. Elevated ferritin level. - Seen by form coverer in July 2023 - monitor - Continue current iron supplementation Assessment & Plan (08/13/2024 3:53 PM EST): - Normocytic anemia. Elevated ferritin level. - Seen by form coverer in July 2023 - monitor - Continue current iron supplementation Assessment & Plan (04/26/2024 10:33 AM EDT): - Normocytic anemia. Elevated ferritin level. - Seen by form coverer in July 2023 - monitor - Continue current iron supplementation Assessment & Plan (03/07/2024 3:45 PM EDT): - Normocytic anemia. Elevated ferritin level. - Seen by form coverer in July 2023 - monitor - Continue current iron supplementation Assessment & Plan (01/25/2024 5:10 PM EDT): - Normocytic anemia. Elevated ferritin level. - Seen by form coverer in July 2023 - monitor - Continue current iron supplementation Assessment & Plan (10/18/2023 1:00 PM EDT): - Normocytic anemia. Elevated ferritin level. - Seen by form coverer in July 2023 - monitor - Continue current iron supplementation Assessment & Plan (06/22/2023 5:49 AM EST): - Normocytic anemia. Elevated ferritin. - Seen by form coverer on 05/13/23 - monitor - Continue current [...] eat healthier foods. Will refer him to [facility] department. Will write a letter to the [...] eat healthier foods. Will refer him to [facility] department. Will write a letter to the [...] 8:38 AM EDT): - Following with Urologist, [facility], last seen in November 2024 -Discontinued Imipramine. -Continue mirabegron -Recently given a sample of Gemtesa -Treatment Hx: Previously on oxybutynin 5 mg which was changed to mirabegron when he went to [place] and was seen by an urologist there. Previously on imipramine, which was recommended to discontinue due to anticholinergic effect. Assessment & Plan (11/19/2024 4:11 PM EDT): - Following with [facility], last seen in Apr 2024 -Discontinued Imipramine. -Continue mirabegron -Recently given a sample of Gemtesa -Treatment Hx: Previously on oxybutynin 5 mg which was changed to mirabegron when he went to [place] and was seen by an urologist there. Previously on imipramine, which was recommended to discontinue due to anticholinergic effect. Assessment & Plan (08/13/2024 3:52 PM EST): - [facility] last seen in Apr 2024 -Discontinued Imipramine. -Continue mirabegron -Recently given a sample of Gemtesa -Treatment Hx: Previously on oxybutynin 5 mg which was changed to mirabegron when he went to [place] and was seen by an urologist there. Previously on imipramine, which was recommended to discontinue due to anticholinergic effect. Assessment & Plan (04/29/2024 6:49 AM EDT): - [facility], last seen in Apr 2024 -Discontinued Imipramine. -Continue mirabegron -Recently given a sample of Gemtesa -Treatment Hx: Previously on oxybutynin 5 mg which was changed to mirabegron when he went to [place] and was seen by an urologist there. Previously on imipramine, which was recommended to discontinue due to anticholinergic effect. Assessment & Plan (01/25/2024 5:07 PM EDT): - [facility] last seen in November 2023 -Discontinued Imipramine. -Continue mirabegron -Treatment Hx: Previously on oxybutynin 5 mg which was changed to mirabegron when he went to [place] and was seen by an urologist there. Previously on imipramine, which was recommended to discontinue due to anticholinergic effect. Assessment & Plan (10/18/2023 1:22 PM EDT): - Following with UrologistPioneer Juve, last seen in July 2023 -Discontinue Imipramine. -Continue mirabegron -Treatment Hx: Previously on oxybutynin 5 mg which was changed to mirabegron when he went to [place] and was seen by an urologist there. Previously on imipramine, which was recommended to discontinue due to anticholinergic effect. Assessment & Plan (06/22/2023 5:42 AM EST): - Following with UrologistPioneer Juve, last seen on 02/11/2023 -Continue Imipramine. -Continue mirabegron -Treatment Hx: Previously on oxybutynin 5 mg which was changed to mirabegron when he went to [place] and was seen by an urologist there. Assessment & Plan (02/21/2023 5:12 AM EDT): - Following with UrologistPioneer Juve, last seen on 02/11/2023 -Continue Imipramine. -Continue myrbetriq. -Treatment Hx: Previously on oxybutynin 5 mg which was changed to Mybetriq when he went to [place] and was seen by an urologist there. Assessment & Plan (11/09/2022 5:06 PM EDT): Following with Urologist, last seen on 10/2022, requested mote of the visit and it is pending at this time -Continue Imipramine. -Continue myrbetriq. -Treatment Hx: Previously on oxybutynin 5 mg which was changed to Mybetriq when he went to [place] and was seen by an urologist. Assessment & Plan (07/04/2022 5:07 AM EST): -Continue Imipramine. -Continue myrbetriq. -Treatment Hx: Previously on oxybutynin 5 mg which was changed to Mybetriq when he went to [place] and was seen by an urologist. Hypertension [...] 02/16/24, interrupted due to UTI Prostate cancer ([facility]) 11/13/2012 Assessment & Plan (03/04/2025 8:38 AM EDT): Dx in 1992. s/p prostatectomy in 1992 in [place]. Urologist: [facility], last seen in November 2024 Hx [...] s/p prostatectomy in 1992 in [place]. Urologist: [facility], last seen in Apr 2024 [...] s/p prostatectomy in 1992 [place] Urologist: [facility], last seen in Apr 2024 [...] s/p prostatectomy in [place] [facility] last seen in Apr 2024 Hx [...] s/p prostatectomy in 1992 in [place] Urologist: [facility], last seen in Apr 2024 [...] s/p prostatectomy in 1992 in [place]. [facility] last [facility] in November 2023 Hx [...] s/p prostatectomy in 1992 in [place]. Urologist: [facility], last seen in November 2023 Hx [...] EDT): >>ASSESSMENT AND PLAN FOR PROSTATE CANCER ([facility]) WRITTEN ON 06/22/2023 12:44 PM [...] appt with urologist and radiation oncologist [facility] and requested an assistance in rescheduling Bone Scan appt and giving instruction in [place]. The employment office clerk has kindly agreed to do so. >>ASSESSMENT AND PLAN FOR HISTORY OF PROSTATE CANCER WRITTEN ON 06/22/2023 12:44 PM BY JOLLY CONSTANTINO MD Dx in 1992. s/p prostatectomy in 1992 in [place]. Urologist: [facility], last seen in May 2023 Hx [...] appt with urologist and radiation oncologist Called [facility] and requested an assistance in rescheduling Bone Scan appt and giving instruction in [place]. The employment office clerk has kindly agreed to do so. Resolved Problems Problem Noted Date Diagnosed Date Resolved Date Poor appetite 04/29/2024 09/28/2024 Assessment & Plan (04/29/2024 7:01 AM EDT): - patient may benefit from more socialization - continue periodic assessment for depression / dementia Gastroesophageal reflux disease 01/07/2016 07/04/2022 Helicobacter pylori gastroin testinal tract infection 01/07/2016 01/25/2024 Encounters Date Type Department Care Team Description 05/13/2025 Orders Only GENERIC EXTERNAL DATA DEPARTMENT Provider, Generic External Data 05/09/2025 Telephone [facility] [address] [place] [id number] Jolly Constantino MD Durable Medical Equipment 05/08/2025 Telephone [facility] [address] [place] [phone] Nata Hogan, ANY 05/08/2025 Telephone [facility] [address] [place] [id number] Nata Hogan, ANY 05/06/2025 5:20 PM EDT Office Visit [facility] [address] [place] [address] Tarah Faust FNP Dependent edema (Primary Dx) 05/06/2025 Travel 05/06/2025 Telephone [facility] [place], [place] [address] Jolly Constantino MD Durable Medical Equipment 05/06/2025 Telephone [facility] [place], [place] [address] oJlly Constantino MD Appointment Request 04/30/2025 Telephone [facility] [place], [place] [address] Jolly Constantino MD verbal orders 04/29/2025 Telephone [facility] [place] [address] Jolly Constantino MD No Show 04/26/2025 Telephone [facility] [place], [place] [address] Jolly Constantino MD chartprep 04/25/2025 Telephone [facility] [place] [address] [facility]ourtney Olguin[facility] 04/23/2025 Telephone [facility] [place] [address] Kourtney Olguin, PharmD 04/20/2025 Refill [facility] [place] [address] Rebecca Hamm NP Type 2 diabetes mellitus with hyperglycemia, without long-term current use of insulin (HCC) 04/17/2025 Patient Outreach [facility] [address] Jolly Constantino MD Transition Of Care (Tcm) (HDF-scheduled) 04/10/2025 Patient Outreach [facility] [address] Jolly Constantino MD Pre-visit Planning (HDF unscheduled unable to LVM ) 04/10/2025 Telephone [facility] [place] [address] Jolly Constantino MD Hospital Follow-up 04/04/2025 Orders Only GENERIC EXTERNAL DATA DEPARTMENT Provider, Generic External Data 04/03/2025 Telephone [facility] [place] [address] SharifKourtney PharmD 04/03/2025 Orders Only GENERIC EXTERNAL DATA DEPARTMENT Provider, Generic External Data 04/03/[address] [address] Jolly Constantino MD chart prep 03/28/2025 Patient Outreach [address] [address] Jolly Constantino MD Transition Of Care (Tcm) (HDF cheduled ) 03/28/[address] [address] Jolly Constantino MD Hospital Follow-up 03/22/2025 Orders Only GENERIC EXTERNAL DATA DEPARTMENT Provider, Generic External Data 03/11/2025 Results Follow-Up [address] Abdomen Pelvis w/ Contrast 03/11/2025 Orders Only GENERIC EXTERNAL DATA DEPARTMENT Provider, Generic External Data 02/25/2025 3:00 PM EDT Office Visit [address] [address] Jolly Constantino MD Primary hypertension (Primary Dx); Type 2 diabetes mellitus with hyperglycemia, without long-term current use of insulin (CMS/HCC); Prostate cancer (CMS/HCC); Right buttock pain; Recurrent UTI; Dysuria; Neurogenic bladder; Dizziness; TIA (transient ischemic attack) 02/25/2025 Travel 02/22/[address] [address] Jolly Constantino MD chart prep 02/19/[address] [address] Jolly Constantino MD Dyslipidemia 02/15/2025 Patient Outreach [address] [address] Jolly Constantino MD Pre-visit Planning ([facility] screening was completed on 11/19/2024) from Last 3 Months Immunizations Immunization Administration [...] Sign Reading Time Taken Comments Blood Pressure 128/68 05/06/2025 5:58 PM EDT Pulse 72 05/06/2025 5:33 PM EDT Temperature 37 C (98.6 F) 05/06/2025 5:33 PM EDT Respiratory Rate 18 05/06/2025 5:33 PM EDT Oxygen Saturation 98% 05/06/2025 5:33 PM EDT Inhaled Oxygen Concentration - - Weight 77.2 kg (170 lb 3.2 oz) 05/06/2025 5:33 P M EDT Height 154.9 cm (5' 1 ) 02/25/2025 3:24 PM EDT Body Mass Index 32.16 02/25/2025 3:24 PM EDT Plan of Treatment Upcoming Encounters Date Type Department Care Team (Late st Contact Info) Description 05/27/2025 9:00 AM EST Office Visit [facility] [address] [place] [address] Jolly Constantino MD [address] [place] [address] 06/10/2025 2:00 PM EST Medication Management [facility] [address] [place] [address] Javier Benton, PharmD [address] [place] [address] Health Maintenance Due Date Last Done Comments Dental Prophylaxis 1937 Dental X-Ray: Bitewings 1937 Alcohol/Substance Use Screening 1949 Dental Oral Exam 03/06/2025 09/05/2024 COVID-19 Vaccine ( season) 2025 04/16/2024, 06/23/2023, 07/06/2022, Additional history exists Influenza Vaccine (#1) 2025 , 06/23/2023, 06/29/2022, Additional history exists Diabetes: Foot Exam 04/26/2025 04/26/2024, 04/26/2024, 04/26/2024, Additional history exists Diabetes: Hemoglobin A1C 05/28/2025 025, 11/19/2024, 09/27/2024, Additional history exists Depression Screening 08/13/2025 08/13/2024, 08/13/19 Lipid Panel 09/17/2025 09/17/2024, 07/, 02/22/2023, Additional history exists SDOH Screening 11/19/2025 11/19/2024 Eye Exam 12/07/2025 12/08/2023 Diabetes: Urine Protein Screening 02/27/2026 02/27/2025, 01/25/2024, 02/14/2023, Additional history exists Tobacco Screening 05/06/2026 05/06/2025 Dental X-Ray: Full Mouth 09/06/2027 09/05/2024 DTaP/Tdap/Td [...] Blood Pressure 128/68( 025 5:58 PM EDT) Javier Mike, Marc Procedures Procedure Name Priority Date/Time Associated Diagnosis Comments NT-PROBNP Routine 05/13/2025 2:26 PM EDT MAGNESIUM Routine 05/13/2025 2:26 PM EDT COMPREHENSIVE METABOLIC PANEL Routine 05/13/2025 2:26 PM EDT CBC WITH AUTO DIFFERENTIAL Routine 05/13/2025 2:26 PM EDT URINALYSIS, COMPLETE, WITH REFLEX TO CULTURE Routine 05/13/2025 2:26 PM EDT GLUCOSE, WHOLE BLOOD Routine 04/04/2025 7:29 AM EDT GLUCOSE, WHOLE BLOOD Routine 04/03/2025 4:41 PM EDT GLUCOSE, WHOLE BLOOD Routine 04/03/2025 1:08 PM [...] long-term current use of insulin (CMS/HCC) POCT GLYCOSYLATED HEMOGLOBIN (HGB A1C) Routine 02/25/2025 3:17 PM EDT Type 2 diabetes mellitus with hyperglycemia, without long-term current use of insulin (CMS/HCC) POCT GLUCOSE Routine 02/25/2025 3:16 PM EDT Type 2 diabetes mellitus with hyperglycemia, without long-term current use of insulin (CMS/HCC) XR HIP RIGHT WITH PELVIS 1 VIEW Routine 02/20/2025 10:50 AM EDT LIPID PANEL, STANDARD Routine 09/17/2024 1:26 PM EST PANORAMIC RADIOGRAPHIC IMAGE Routine 09/05/2024 1:30 PM EST PERIODIC ORAL EVALUATION - ESTABLISHED PATIENT Routine 09/05/2024 1:30 PM EST HM DIABETES EYE EXAM Routine 12/08/2023 from Last 3 Months or Most Recently Relevant to Health Maintenance Results * (ABNORMAL) Urinalysis, Complete, with Reflex to Culture (05/13/2025 2:26 PM EDT) Only the most recent of2 resultswithin the time period is included. Color Urine Yellow [facility] Appearance Urine Clear [facility] PH 6.5 5.0 - 9.0 [facility] Glucose Urine UA Negative Negative mg/dL [facility] Urine Blood Negative Negative [facility] Specific [place] - Urine 1.020 1.005 - 1.025 [facility] Urine Protein 30 (1+)(A) Neg-Trace mg/dL [facility] Urine Ketones Trace Negative mg/dL [facility] Nitrite Urine Negative Negative [facility] Leukocyte Esterase Urine Small (1+)(A) Negative [facility] RBC Urine 0-2 0 - 2 /HPF [facility] Urine WBC 6-10(A) 0 - 5 /HPF [facility] Urine Squamous Epithelial Cell 0-2 0 - 2 /HPF [facility] Urine Bacteria None Seen None Seen [facility] Hyaline Casts, Urine 0-2 0 - 2 /LPF [facility] 05/13/2025 2:26 PM EDT 05/13/2025 2:30 PM EDT Narrative [facility] - 05/13/2025 2:44 PM EDT Urine, Clean Catch us Generic External Data Provider LAB URINE ORDERAB LES Final Result Performing Organization Address City/[facility]/ZIP Co de Phone Number [facility] [address] [place] [address] [phone] * NT-proBNP (05/13/2025 2:26 PM EDT) [facility] NT-proBNP 88.6 <300 pg/mL [facility] Comment:Reference Range:Age Group (years) NT-proBNP (pg/ml) InterpretationAll <300 Negative: HF unlikelyFor patients presenting to the ED with clinical suspicion ofnew onset or worsening HF, see below:18 to <50 >299.9 to <450.0 Grayzone: [id number] to 75 >299.9 to <900.0 other causes of>75 >299.9 to <1800.0 NT-proBNP to <50 >449.9 Positive: HF [id number] >899.9>75 >1799.9Note: Elevated NT-proBNP levels should be interpreted inthe context of other clinical information. 05/13/2025 2:26 PM EDT 05/13/2025 2:30 PM EDT Generic External Data Provider LAB BLOOD ORDERAB LES Final Result Performing Organization Address [facility]/ZIP Co de Phone Number [facility] [address] [place] [address] [phone] * (ABNORMAL) CBC auto differential (05/13/2025 2:26 PM EDT) Only the most recent of2 resultswithin the time period is included. Pathologist [facility] White Blood Count 5.2 4.8 - 10.8 X10*3/uL [facility] Red Blood Count 3.59(L) 4.60 - 5.80 X10*6/uL [facility] Hemoglobin 9.7(L) 14.0 - 18.0 g/dl [facility] Hematocrit 30.7(L) 42.0 - 52.0 % [facility] Mean Corpuscular Volume 85.5 80.0 - 98.0 fL [facility] Mean Corpuscular Hemoglobin 27.0 27.0 - 33.0 pg [facility] Mean Corpuscular HGB Conc 31.6 31.0 - 36.0 g/dl [facility] Red Cell Distribution Width 18.0(H) 11.0 - 16.0 % [facility] Platelet Count 312 160 - 400 X10*3/uL [facility] Mean Platelet Volume 9.7 9.4 - 12.4 fL [facility] Neutrophils Percent Auto 79.8(H) 45 - 73 % [facility] Imm Gran Pct Auto 0.4 0.0 - 0.4 % [facility] Lymphocytes Percent Auto 7.8(L) 20 - 40 % [facility] Monocytes Percent Auto 10.3 2 - 11 % [facility] Eosinophils Percent Auto 1.1 0 - 4 % [facility] Basophils Percent Auto 0.6 0 - 2 % [facility] NRBC Pct Auto 0.0 0.0 - 0.2 /100WBC [facility] Neutrophils Absolute Auto 4.2 2.0 - 8.3 x10*3/uL [facility] Imm Gran Abs Auto 0.02 0.00 - 0.03 X10*3/uL [facility] Lymphocytes Absolute Auto 0.4(L) 1.2 - 4.9 X10*3/uL [facility] Monocytes Absolute Auto 0.5 0.1 - 1.2 X10*3/uL [facility] Eosinophils Absolute Auto 0.1 0.0 - 0.4 X10*3/uL [facility] Basophils Absolute Auto 0.0 0.0 - 0.2 X10*3/uL [facility] NRBC Abs Auto 0.000 0.0 - 0.012 X10*3/uL [facility] 05/13/2025 2:26 PM EDT 05/13/2025 2:30 PM EDT us Generic External Data Provider LAB BLOOD ORDERAB LES Final Result [facility] [address] [place] [address] [phone] * Magnesium (05/13/2025 2:26 PM EDT) Magnesium 1.8 1.6 - 2.6 mg/dL [facility] 05/13/2025 2:26 PM EDT 05/13/2025 2:30 PM EDT us Generic External Data Provider LAB BLOOD ORDERAB LES Final Result [facility] [address] [place] [address] [phone] * (ABNORMAL) Comprehensive Metabolic Panel (05/13/2025 2:26 PM EDT) Only the most recent of2 resultswithin the time period is included. Sodium 140 135 - 145 mmol/L [facility] Potassium 4.5 3.3 - 5.1 mmol/L [facility] Chloride 108 96 - 108 mmol/L [facility] Carbon Dioxide 26 22 - 29 mmol/L [facility] Anion Gap 11(L) 12 - 20 [facility] Urea Nitrogen (BUN) 16 9 - 16 mg/dL [facility] Creatinine, Serum 0.89 0.5 - 1.4 mg/dL [facility] Creatinine Clr Calc Pharmacy 53.6 [facility] Comment:eGFR (calculated fro m the MDRD study equation) and eCrCl(calculated from the Cockcroft-Gault equation) are based ondifferent parameters and may not yield comparable results.If eCrCl result is absurd, please check patient'sheight/weight. Estimated Glomerular Filt Rate >60 [facility] Comment:Chronic Kidney Disea se: Estimated GFR < 60 mL/min/1.37w8[place] Kidney Disease: Estimated GFR < 15 mL/min/1.73m2 Glucose 262(H) 60 - 115 mg/dL [facility] Calcium 8.9 8.4 - 10.2 mg/dL [facility] Bilirubin, Total 0.5 0.0 - 1.0 mg/dL [facility] Aspartate Amino Transferase 17 5 - 37 U/L [facility] Alanine Aminotransferase 9 0 - 40 U/L [facility] Total Protein 6.3(L) 6.5 - 8.0 g/dL [facility] Albumin Level 3.7 3.5 - 5.0 g/dL [facility] Alkaline Phosphatase 125(H) 39 - 117 U/L [facility] 05/13/2025 2:26 PM EDT 05/13/2025 2:30 PM EDT Generic External Data Provider LAB BLOOD ORDERAB LES Final Result Performing Organization Address [facility] Co de Phone Number [facility] [address] [place] [phone] * (ABNORMAL) Glucose, Whole Blood (04/04/2025 7:29 AM EDT) Only the most recent of4 resultswithin the time period is included. Pathologist [facility] [place] Glucose, Whole Blood 161(H) 60 - 115 mg/dL [facility] Comment:METER #: [id number] 04/04/2025 7:29 AM EDT 04/04/2025 7:32 AM EDT Generic External Data Provider LAB BLOOD ORDERAB LES Final Result Performing Organization Address [facility] Co de Phone Number [facility] [address] [place] [address] [phone] * SARS-CoV-2 RNA, Influenza A/B, and RSV RNA, Ql NAAT (04/03/2025 11:59 AM EDT) Pathologist [facility] [place] Influenza A PCR NEGATIVE Negative [facility] Influenza B PCR NEGATIVE Negative [facility] Resp Syncy Virus RNA Qual PCR NEGATIVE Negative [facility] SARS COV2 PCR NEGATIVE Negative [facility] Comment:All test results mus t [...] use by authorized laboratories.Testing performed on the [employer]-sensing GeneXpert utilizingreal-time RT-PCR.All SARS CoV2 and positive influenza A/B results arereported to [facility]. 04/03/2025 11:5 9 AM EDT 04/03/2025 12:03 PM EDT us Generic External Data Provider LAB MICROBIOLOGY - GENERAL ORDERABLES Final Result Performing Organization Address City/State/[facility] Co de Phone Number [facility] [address] [place] [address] [phone] * XR Chest 1 View (03/22/2025 1:15 PM EDT) Anatomical Region Laterality Modality Chest Radiographic Edilia ging 03/22/2025 1:15 PM EDT Narrative 03/22/2025 1:30 PM EDT [address] [address] XRay Report Signed Patient: Toni Keys MR#: [id number] : 1935 Acct:[id number] Age/Sex: 89 / M ADM Date: 03/22/25 Loc: .ED Attending Dr: Ordering Physician: Fadia Terry Date of Service: 03/22/25 Procedure(s): XR chest 1V Accession Number(s): [id number] cc: Fadia Terry; Jolly Constantino MD Reason [...] 03/22/25 1328 DD/ 1315 TD/TT: 03/22/25 1323 Manager Integration: Procedure Note Donotuseinterpreter, Image - 03/22/2025 [place] [address] XRay Report Signed Patient: Theresa MeehanToni MR#: [id number] : 8Acct:[id number] Age/Sex: 89 / MADM Date: 03/22/25 Loc: .ED Attending Dr: Ordering Physician: Fadia Terry Date of Service: 03/22/25 Procedure(s): XR chest 1V Accession Number(s): [id number] cc: Fadia Terry; Jolly Constantino MD Reason [...] Ko MD Signed By: <Electronically signed by Leo Biswas OV> 03/22/25 1328 DD/ 1315 TD/TT: 03/22/25 1323 Manager Integration: [facility] External Provider IMG XR PROCEDURES Final Result * Urinalysis w/reflex microscopic (03/22/2025 1:13 PM EDT) Only the most recent of2 resultswithin the time period is included. Color Urine Yellow [facility] Appearance Urine Clear [facility] PH >=9.0 5.0 - 9.0 [facility] Glucose Urine UA Negative Negative mg/dL [facility] Urine Blood Negative Negative [facility] Specific [place] - Urine 1.010 1.005 - 1.025 [facility] Urine Protein Negative Neg-Trace mg/dL [facility] Urine Ketones Negative Negative mg/dL [facility] Nitrite Urine Negative Negative [facility] Leukocyte Esterase Urine Negative Negative [facility] 03/22/2025 1:13 PM EDT 03/22/2025 1:18 PM EDT Narrative [facility] - 03/22/2025 1:24 PM EDT [id number], Clean Catch Generic External Data Provider LAB URINE ORDERAB LES Final Result [facility] [address] [place] [address] [phone] * (ABNORMAL) Sed Rate by Modified Donn (03/22/2025 1:05 PM EDT) Erythrocyte Sedimentation Rate 69(H) 0 - 15 MM/HR [facility] Comment:Patients with polycy themia and many hemoglobin abnormalitiesmay have depressed sed rates whereas patients with anemiamay have elevated sed rates. 03/22/2025 1:05 PM EDT 03/22/2025 1:32 PM EDT us Generic External Data Provider LAB BLOOD ORDERAB LES Final Result Performing Organization Address [facility] de Phone Number [facility] [address] [place] [phone] * (ABNORMAL) C-reactive Protein (03/22/2025 1:05 PM EDT) C Reactive Protein 2.90(H) < or = 0.50 mg/dL [facility] 03/22/2025 1:05 PM EDT 03/22/2025 1:08 PM EDT Generic External Data Provider LAB BLOOD ORDERAB LES Final Result Performing Organization Address [facility] de Phone Number [facility] [address] [place] [phone] * CT Lumbar Spine w/o Contrast (03/22/2025 11:41 AM EDT) Anatomical Region Laterality Modality Spine, L-spine Computed Tomogra phy 03/22/2025 11:4 1 AM EDT Narrative 03/22/2025 12:36 PM EDT [address] [address] [address] Scan Report Signed Patient: Theresa MeehanToni MR#: [id number] : 1935 Acct:[id number] Age/Sex: 89 / M ADM Date: 03/22/25 Loc: .ED Attending Dr: Ordering Physician: Fadia Terry Date of Service: 03/22/25 Procedure(s): CT lumbar spine wo IV con Accession Number(s): [id number] cc: Fadia Terry; Jolly Constantino MD Report Number: [id number]: Total DLP = 429.00 mGy-cm Reason for [...] on the coronal series. There are 5 tpl-ydu-rnxpiuw lumbar segments. There is stable moderate superior [...] 03/22/25 1233 DD/ 1141 TD/TT: 03/22/25 1151 Manager Integration: Procedure Note Donotuseinterpreter, Image - 03/22/[address] [address] [address] Scan Report Signed Patient: Toni Keys MR#: [id number] : 1935cct:[id number] Age/Sex: 89 / MADM Date: 03/22/25 Loc: HO.ED Attending Dr: Ordering Physician: Fadia Terry Date of Service: 03/22/25 Procedure(s): CT lumbar spine wo IV con Accession Number(s): [id number] cc: Fadia Terry; Jolly Constantino MD Report Number: [id number]: Total DLP = 429.00 mGy-cm Reason for [...] on the coronal series. There are 5 oxs-hvo-vvggqkn lumbar segments. There is stable moderate superior [...] Maxim Ellis MD 03/22/2025 12:33 PM EDT Dictated By: Maxim Ellis MD Signed By: <Electronically signed by Maxim Ellis MD in OV> 03/22/25 1233 DD/ 1141 TD/TT: 03/22/25 1151 Manager Integration: us [facility] External Provider IMG CT PROCEDURES Final Result * CT Abdomen Pelvis w/ Contrast (03/11/2025 3:43 PM EDT) Anatomical Region Laterality Modality Body, Pelvis, Abdomen Computed T omography 03/11/2025 3:43 PM EDT Narrative 03/11/2025 4:40 PM EDT [place] [address] CT Scan Report Signed Patient: Toni Keys MR#: [id number] : 1935 Acct:[id number] Age/Sex: 89 / M ADM Date: 03/11/25 Loc: HO.ED Attending Dr: Ordering Physician: Kira Lowe NP Date of Service: 03/11/25 Procedure(s): CT abdomen pelvis w IV con Accession Number(s): [id number] cc: Jolly Constantino MD; Kira Lowe NP Report Number: [id number]: Total DLP = 528.00 mGy-cm EXAMINATION: CT [...] 03/11/25 1637 DD/ 1543 TD/TT: 03/11/25 1615 Manager Integration: Procedure Note Donotuseinterpreter, Image - 03/11/[address] [place] [address] [address] Scan Report Signed Patient: Toni Keys MR#: [id number] : 8Acct:[id number] Age/Sex: 89 / MADM Date: 03/11/25 Loc: HO.ED Attending Dr: Ordering Physician: Kira Lowe NP Date of Service: 03/11/25 Procedure(s): CT abdomen pelvis w IV con Accession Number(s): [id number] cc: Jolly Constantino MD; Kira Lowe NP Report Number: [id number]: Total DLP = 528.00 mGy-cm EXAMINATION: CT [...] 03/11/25 1637 DD/ 1543 TD/TT: 03/11/25 1615 Manager Integration: [facility] External Provider IMG CT PROCEDURES Final Result * Albumin, Random Urine W/Creatinine (02/27/2025 2:39 PM EDT) Creatinine, Urine 74.26 mg/dL [facility] Microalbumin Urine 7.0 mg/L [facility] Microalbum Creatinine Ratio Ur 9.4 <30 ug/mg cr [facility] Comment:Albumin/Creatinine R atio Reference Ranges: Normal: < 30 ug/mg creatinine Microalbuminuria: 30 - 300 ug/mg creatinineClinical Albuminuria: > 300 ug/mg creatinine Urine 02/27/2025 2:39 PM EDT 02/27/2025 4:36 PM EDT Jolly Constantino MD LAB URINE ORDERABLES Final Resul t Performing Organization Address City/State/[facility] Co de Phone Number [facility] [address] [place] [phone] * (ABNORMAL) POCT glycosylated hemoglobin (Hgb A1c) (02/25/2025 3:17 PM EDT) Hemoglobin A1C 7.7(A) 4.0 - 5.7 % QC Media Lot # [id number] Lot# Expiration Date Blood Capillary blood specimen / Unknown 02/25/2025 3:17 PM EDT Jolly Constantnio MD POINT OF CARE TEST ENTER/EDIT OR DERABLES Final Result * (ABNORMAL) POCT glucose manually resulted (02/25/2025 3:16 PM EDT) Glucose Blood, POC 203(A) 60 - 200 mg/dL QC Media Lot # [id number] Lot# Expiration Date [id number] Blood Capillary blood specimen / Unknown 02/25/2025 3:16 PM EDT Jolly Constantino MD POINT OF CARE TEST ENTER/EDIT OR DERABLES Final Result * XR Hip right with Pelvis 1 view (02/20/2025 10:50 AM EDT) Anatomical Region Laterality Modality Lower Extremities, Hip Bilateral Radiograp hic Imaging 02/20/2025 10:5 0 AM EDT Narrative 02/20/2025 11:58 AM EDT [address] [address] XRay Report Signed Patient: Theresa MeehanToni MR#: [id number] : 1935 Acct:[id number] Age/Sex: 89 / M ADM Date: 02/20/25 Loc: HO.ED Attending Dr: Ordering Physician: Moira Sanchez Date of Service: 02/20/25 Procedure(s): XR hip RT w PEL1V Accession Number(s): [id number] cc: Moira Sanchez; Jolly Constantino MD EXAMINATION: [...] MD 02/20/2025 11:55 AM EDT Dictated By: Simnó Aden MD Signed By: <Electronically signed by Simón Aden MD in OV> 02/20/25 1155 DD/ 1050 TD/TT: 02/20/25 1149 Manager Integration: Procedure Note Donotuseinterpreter, Image - 02/20/[address] [address] XRay Report Signed Patient: Theresa Meehan,Toni MR#: [id number] : 8Acct:[id number] Age/Sex: 89 / MADM Date: 02/20/25 Loc: HO.ED Attending Dr: Ordering Physician: Moira Sanchez Date of Service: 02/20/25 Procedure(s): XR hip RT w PEL1V Accession Number(s): [id number] cc: Moira Sanchez; Jolly Constantino MD EXAMINATION: [...] 02/20/25 1155 DD/ 1050 TD/TT: 02/20/25 1149 Manager Integration: [facility] External Provider IMG XR PROCEDURES Final Result * Lipid Panel, Standard (09/17/2024 1:26 PM EST) Triglycerides 120 <150 mg/dL [facility] Comment:Desirable Triglyceri de: less than 150 mg/dLBorderline High Triglyceride 150-199 mg/dLHigh Triglyceride: 200-499 mg/dLVery High Triglyceride: greater than or equal to 5OO mg/dL Cholesterol 113 <200 mg/dL [facility] Comment:Desirable Cholestero l: less than 200 mg/dLBorderline High Cholesterol: 200-239 mg/dLHigh Cholesterol: greater than 239 mg/dL LDL Cholesterol Calculated 47 <100 mg/dL [facility] Comment:Desirable LDL: less than 100 mg/dLNear Optimal/Above Optimal LDL: 110- 129 mg/dLBorderline High LDL: 130-159 mg/dLHigh LDL: 160-189 mg/dLVery High LDL: greater than or equal to 190 mg/dL HDL Cholesterol 42 >40 mg/dL [facility] Comment:Desirable HDL: great er than 40 mg/dL Note: This HDL assay may give artificially low results in patients with liver disease. 09/17/2024 1:26 PM EST 09/17/2024 1:34 PM EST Generic External Data Provider LAB BLOOD ORDERAB LES Final Result [facility] [address] [place], [place] [phone] * Diabetes Eye Exam (12/08/2023) [facility] Signature Eye Exam Normal Normal 12/08/2023 Historical Provider HEALTH MAINTENANCE Final Result from Last 3 Months or Most Recently Relevant to Health Maintenance Insurance [address] [place] [phone] [facility] PENITENTIARY OPTIONS (O D-SNP) [facility] Care Teams Office Administrative Assistant Relationship Specialty Start Date End Date Jolly Constantino MD [address] [place] [address] PCP - General Family Medicine 06/29/12 Javier Benton, AreliD [address] [place] [address] Pharmacist Internal Medicine 01/14/23
--- OUTSIDE RECORDS SUMMARY | 2025-05-13 19:23 | XMS_ITS | Encounter Summary ---
Author Organization [employer] Address [address] [facility] 7t [place] [address] Care Team Providers Care Division Chair Name Role Phone Jolyl London MD Primary Care Provider [phone] Javier Benton PharmD Unavailable [phone] Reason for Visit * Reason Onset Date Comments Durable Medical Equipment 05/06/2025 Encounter Details Date Type Department Care Team ([facility] st Contact Info) Description 05/06/2025 Telephone [facility] MEDICINE [address] [place] [address] Jolly London MD [address] [place], [place] [phone] Durable Medical Equipment Social History Tobacco Use [...] * Telephone Encounter - Parviz Cotto - 05/06/2025 3:56 PM EDT Tc from Mai an OT with [employer] requesting a Shower seat with Back rest and raisedtoilet seat with handles. Any questions contact Mai at [phone] documented in this encounter Plan of Treatment Upcoming Encounters Date Type Department Care Team (Late st Contact Info) Description 05/27/2025 9:00 AM EST Office Visit [facility] MED[facility]INE [address] [place] [phone] Jolly London MD [address] [place] [phone] 06/10/2025 2:00 PM EST Medication Management [facility] [address] [place] [phone] Javier Benton, PharmD [address] [place] [phone] documented as of this encounter Goals Goal [...] documented as of this encounter Care Teams Division Chair Relationship Specialty Start Date End Date Jolly London MD [address] [place] [address] PCP - General Family Medicine 06/29/12 Javier Benton, PharmD [address] [place] [address] Pharmacist Internal Medicine 01/14/23 documented as of this encounter
--- OUTSIDE RECORDS SUMMARY | 2025-05-13 19:23 | XMS_ITS | Encounter Summary ---
Author Organization [employer] Address [address] [facility] 7t [place] [address] Care Team Providers Care Crop Farm Helper Name Role Phone Jolly London MD Primary Care Provider [phone] Javier Benton PharmD Unavailable [phone] Reason for Referral * Consultation (Routine) - Authorized Specialty Diagnoses / Procedures Referred By Contac t Referred To Contact Pharmacy Diagnoses Primary hypertension Type 2 diabetes mellitus with hyperglycemia, without long-term current use of insulin ([facility]) Jolly London MD [address] [place] [address] Phone: tel: fax: Referral ID Status Reason Start Date Expiration Date Visits Requested Visits Authorized [id number] Authorized Consult and Treat 02/05/2025 02/05/2026 6 6 Encounter Details Date Type Department Care Team (Late st Contact Info) Description 02/05/2025 Orders Only [facility] [address] [place], [place] [phone] Jolly London MD [address] [place], [place] [phone] Primary hypertension (Primary Dx); Type 2 diabetes [...] Description 05/27/2025 9:00 AM EST Office Visit [facility] [address] [place] [phone] Jolly London MD [address] [place] [address] 06/10/2025 2:00 PM EST Medication Management [facility] [address] [place] [address] Javier Benton, PharmD [address] [place] [address] Scheduled Referrals Name Type Priority Associated Diagnoses Orde r Schedule Referral to Pharmacy CDTM Outpatient Referral Routine Primary hypertension Type 2 diabetes mellitus with hyperglycemia, without long-term current use of insulin ([facility]) Ordered: 02/05/2025 documented as of this encounter [...] AM EDT Narrative 02/20/2025 11:58 AM EDT [address] [address] XRay Report Signed Patient: Toni Keys MR#: [id number] : 1935 Acct:[id number] Age/Sex: 89 / M ADM Date: 02/20/25 Loc: HO.ED Attending Dr: Ordering Physician: Moira Sanchez Date of Service: 02/20/25 Procedure(s): XR hip RT w PEL1V Accession Number(s): [id number] cc: Moira Sanchez; Jolly London MD EXAMINATION: [...] 02/20/25 1155 DD/ 1050 TD/TT: 02/20/25 1149 Instrument Operator: Procedure Note Donotuseinterpreter, Image - 02/20/2025 [place] [address] XRay Report Signed Patient: Toni Keys MR#: [id number] : 8Acct:[id number] Age/Sex: 89 / MADM Date: 02/20/25 Loc: HO.ED Attending Dr: Ordering Physician: Moira Sanchez Date of Service: 02/20/25 Procedure(s): XR hip RT w PEL1V Accession Number(s): [id number] cc: Moira Sanchez; Jolly London MD EXAMINATION: [...] 02/20/25 1155 DD/ 1050 TD/TT: 02/20/25 1149 Instrument Operator: [facility] External Provider IMG XR PROCEDURES Final Result documented in this encounter Visit Diagnoses Diagnosis Primary hypertension- Primary Unspecified essential hypertension Type 2 diabetes mellitus with hyperglycemia, without long-term current use of insulin (HCC) documented in this encounter Additional Health Concerns Assessment Noted Time PHQ-9 Depression Total Score: 1 08/13/19 25 3:11 PM EST documented as of this encounter Care Teams Crop Farm Helper Relationship Specialty Start Date End Date Jolly London MD [address] [place] [phone] PCP - General Family Medicine 06/29/12 Javier Benton, AreliD [address] [place] [phone] Pharmacist Internal Medicine 01/14/23 documented as of this encounter
--- OUTSIDE RECORDS SUMMARY | 2025-05-13 19:23 | XMS_ITS | Encounter Summary ---
Author Organization [employer] Address [address] [facility] 7t [place] [address] Care Team Providers Care Shell Mold Bonding Machine Operator Name Role Phone Jolly London MD Primary Care Provider [phone] Javier Benton PharmD Unavailable [phone] Encounter Details Date Type Department Care Team ([facility] st Contact Info) Description 05/08/2025 Telephone [facility]INE [address] [place], [place] [phone] Nata Hogan RN Social History Tobacco Use [...] Encounter - Nata Hogan RN - 05/08/2025 2:40 PM EDT Tc to pt via S ID: [id number] to let them know per covering provider Please can you inform the patient that an order was put in for echo to check his heart because of the continued swelling of both feet. Also he will get a call when his compression stockings are ready. Thank you . Pt advised to avoid eating foods with high amounts of sodium and to make sure to elevate there legs at heart level it they will be sitting for longs periods of time. Pt advised to walk for short periods of time to help decrease swelling and to be on the look out for scheduling for the echo. Pt advised to call our office for any further questions or concerns at this time. Ed precautions reviewed with pt and pt verbalized understanding. * Telephone Encounter - Nata Hogan RN - 05/08/2025 2:40 PM EDT ----- Message from Tarah Faust sent at 05/08/2025 12:49 PM EDT [...] Description 05/27/2025 9:00 AM EST Office Visit [address] [phone] Jolly London MD [address] [place] [phone] 06/10/2025 2:00 PM EST Medication Management [address] [phone] Javier Benton, Marc [address] [place] [phone] documented as of this encounter Goals Goal [...] documented as of this encounter Care Teams Shell Mold Bonding Machine Operator Relationship Specialty Start Date End Date Jolly London MD [address] [place] [address] [phone] PCP - General Family Medicine 06/29/12 Javier Benton, AreliD [address] [place] [address] [phone] Pharmacist Internal Medicine 01/14/23 documented as of this encounter
--- OUTSIDE RECORDS SUMMARY | 2025-05-13 19:23 | XMS_ITS | Encounter Summary ---
Author Organization [employer] Address [address] [facility] 7t [place] [address] Care Team Providers Care Airport Engineer Name Role Phone Jolly London MD Primary Care Provider [phone] Javier Benton PharmD Unavailable [phone] Encounter Details Date Type Department Care Team (Late st Contact Info) Description 06/07/2022 Abstract [facility] MEDICINE [address] [place] [phone] Jolly London MD [address] [place] [phone] Social History Tobacco Use Types Packs/Day Years [...] Description 05/27/2025 9:00 AM EST Office Visit [facility] MEDICINE [address] [place] [phone] Jolly London MD [address] [place] [phone] 06/10/2025 2:00 PM EST Medication Management [facility]INE [address] [place] [address] Javier Benton, PharmD [address] [place] [phone] documented as of this encounter Visit Diagnoses Not on filedocumented in this encounter Care Teams Airport Engineer Relationship Specialty Start Date End Date Jolly London MD [address] [place], [place] [phone] PCP - General Family Medicine 06/29/12 Javier Benton, Marc [address] [place] [address] Pharmacist Internal Medicine 01/14/23 documented as of this encounter
[2025-05-13 20:13] LABS: Glucose, Whole Blood 130 mg/dL (60-115)
--- NOTE | 2025-05-13 20:23 | PC.NURSE ---
Pt upset, stating he has not eaten all day and is concerned due to being diabetic. POC check is 130. Provided with sandwich. Awaiting re-loli/dispo plan by doctor.
[2025-05-13 21:05] VITALS: BP 156/71; PULSE 80; RESP 16; TEMP -17.7; TEMP 0; O2SAT 98
--- NOTE | 2025-05-13 21:25 | PC.NURSE ---
On discharge, pt ripped off EKG lead causing skin tear. ANY Arredondo wrapped with gauze and nonstick dressing. khushboo [place] DC.
== END 2025-05-13 21:36 | disposition home or self-care (01) ==
PROVIDERS: Physician Assistant Medical; Emergency Provider Emergency Medicine; PCP Family Medicine
DX: R60.0 Localized edema (principal); N50.89 Other specified disorders of the male genital organs; R94.31 Abnormal electrocardiogram [ECG] [EKG]; I49.8 Other specified cardiac arrhythmias; R06.02 Shortness of breath; Z79.899 Other long term (current) drug therapy
CPT/HCPCS: 36415; 71046; 80053; 81001; 82947; 83735; 83880; 85025; 87086; 93005; 93970; 99284; 99285; J1938

== ENCOUNTER → 2025-05-13 18:04 | Outpatient (BNV) | payer OTHER, SELFPAY | PROVIDERS: Emergency Provider Emergency Medicine; PCP Family Medicine; Visit Provider Radiology Diagnostic Radiology | DX: R60.0 Localized edema (principal) | CPT/HCPCS: 71046; 93970 ==

== ENCOUNTER → 2025-05-13 18:06 | Outpatient (BNV) | payer OTHER, SELFPAY | PROVIDERS: Emergency Provider Emergency Medicine; PCP Family Medicine; Visit Provider Internal Medicine | DX: R94.31 Abnormal electrocardiogram [ECG] [EKG] (principal); R53.1 Weakness | CPT/HCPCS: 93010 ==

== ENCOUNTER 2025-06-19 12:45 | Outpatient (REF) | payer OTHER, SELFPAY ==
--- NOTE | ~2025-06-19 | US_ITS ---
EXAMINATION: US LOWER EXTREMITY VENOUS (REFLUX EXAM), BILATERAL CLINICAL INFORMATION: Edema, lower extremities. COMPARISON: None. TECHNIQUE: Color flow triplex imaging and compression Doppler was performed to evaluate both the deep and the superficial systems bilaterally. To evaluate the superficial system, the examination was performed in the upright position. Color-flow Doppler ultrasound and compression ultrasound were utilized. In addition, maneuvers were utilized to demonstrate reflux. FINDINGS: 1. DEEP VENOUS ULTRASOUND OF THE RIGHT LOWER EXTREMITY: Common Femoral Vein: Compressible, normal respiratory variation and augmented flow. Femoral Vein: Compressible, normal color flow and augmentation. Popliteal Vein: Compressible, normal augmentation. Deep Reflux: There is no evidence of reflux in the deep system in either the common femoral vein, superficial femoral or the popliteal vein. There is no evidence of a Mayers's cyst. 2. SUPERFICIAL ULTRASOUND WITH DOPPLER OF RIGHT LOWER EXTREMITY: GREAT SAPHENOUS VEIN: Saphenofemoral Junction: 0.5 cm; Reflux: 0 ms Proximal Thigh: 0.3 cm; Reflux: 0 ms Mid Thigh: 0.2 cm; Reflux: 0 ms Distal Thigh: 0.1 cm; Reflux: 0 ms At Knee: Not seen. Proximal Calf: Not seen. Mid Calf: Not seen. Distal Calf: Not seen. DUPLICATED MEDIAL GREAT SAPHENOUS VEIN: Diameter: None imaged Reflux: NA DUPLICATED LATERAL GREAT SAPHENOUS VEIN: Diameter: None imaged Reflux: NA SMALL SAPHENOUS VEIN: Saphenopopliteal Junction: 0.2 cm; Reflux: 0 ms Proximal: 0.2 cm; Reflux: 0 ms Distal: 0.1 cm; Reflux: 0 ms VEIN OF GIACOMINI: Size: NA Reflux: NA PERFORATORS: Location: None imaged Size: NA Reflux: NA VARICOSITIES: Location: None imaged. Size: NA Reflux: NA 3. DEEP VENOUS ULTRASOUND OF THE LEFT LOWER EXTREMITY: Common Femoral Vein: Compressible, normal respiratory variation and augmented flow. Femoral Vein: Compressible, normal color flow and augmentation. Popliteal Vein: Compressible, normal augmentation. Deep Reflux: There is no evidence of reflux in the deep system in either the common femoral vein, superficial femoral or the popliteal vein. There is no evidence of a Mayers's cyst. 4. SUPERFICIAL ULTRASOUND WITH DOPPLER OF LEFT LOWER EXTREMITY: GREAT SAPHENOUS VEIN: Saphenofemoral Junction: 1.1 cm; Reflux: 0 ms Proximal Thigh: 0.4 cm; Reflux: 0 ms Mid Thigh: 0.3 cm; Reflux: 0 ms Distal Thigh: 0.2 cm; Reflux: 0 ms At Knee: 0.2 cm; Reflux: 0 ms Proximal Calf: Not seen. Mid Calf: 0.2 cm; Reflux: 0 ms Distal Calf: 0.2 cm; Reflux: 0 ms DUPLICATED MEDIAL GREAT SAPHENOUS VEIN: Diameter: None imaged Reflux: NA DUPLICATED LATERAL GREAT SAPHENOUS VEIN: Diameter: None imaged. Reflux: NA SMALL SAPHENOUS VEIN: Saphenopopliteal Junction: 0.1 cm; Reflux: 0 ms Proximal: 0.3 cm; Reflux: 0 ms Distal: 0.2 cm; Reflux: 0 ms VEIN OF GIACOMINI: Size: NA Reflux: NA PERFORATORS: Location: None imaged Size: NA Reflux: NA VARICOSITIES: Location: Mid thigh. Size: 0.4 cm. Reflux: NA US/US venous insuf bilat IMPRESSION: Right: No venous insufficiency. Left: No venous insufficiency. 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 Electronically signed by: Alin Hurt MD 06/19/2025 02:00 PM [facility]
--- NOTE | ~2025-06-19 | US_ITS ---
EXAMINATION: US SCROTUM CLINICAL INFORMATION: Scrotal swelling, history of prostate CA. 89-year-old male. COMPARISON: 12/07/2005. Correlation made with CT abdomen and pelvis 03/11/2025. TECHNIQUE: A sonogram of the scrotum was performed assessing torres-scale appearance and color Doppler flow. Spectral Doppler analysis of the arterial and venous flow were performed in the testes bilaterally. FINDINGS: There is diffuse edematous thickening of the scrotal skin, with associated subcutaneous edema. 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 There is no right hydrocele or abnormality in the right scrotal sac. LEFT: Left testicle measures 2.0 x 1.3 x 1.5 cm, volume 2.0 mL. No focal testicular parenchymal lesions are visualized. Spectral Doppler analysis of the arterial and venous flow is normal in the left testis. Left epididymal head is normal in size. Left epididymal head simple cyst measuring 1.1 x 0.7 x 1.0 cm. No left hydrocele or varicocele is seen. Left epididymal Doppler flow is normal. US/US scrotum IMPRESSION: 1. Diffuse skin thickening and subcutaneous edema of the scrotum. This may be on the basis of cellulitis but is nonspecific. 2. 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 3. The left testis is grossly normal in appearance. There is a left epididymal head cyst measuring up to 1.1 cm. Electronically signed by: Simón Aden MD 06/19/2025 02:38 PM [facility]
--- OUTSIDE RECORDS SUMMARY | 2025-06-19 14:58 | XMS_ITS | Encounter Summary ---
Author Organization [employer] Address [address] [facility] [address]t [place] [address] Care Team Providers Care Regional Operations Manager Name Role Phone Jolly London MD Primary Care Provider [phone] Javier Benton PharmD Unavailable Reason for Referral * Consultation (Routine) - Closed Specialty Diagnoses / Procedures Referred By Contac t Referred To Contact Audiology Diagnoses Sensorineural hearing loss, bilateral Jolly London MD [address] [place] [address] Phone: tel: fax: [facility] [address] 1[address] Floor [place], [place] Phone: tel: fax: Referral ID Status Reason Start Date Expiration Date V isits Requested Visits Authorized [id number] Closed Specialty Services Required 10/10/2024 10/10/2025 1 1 Encounter Details Date Type Department Care Team (Late st Contact Info) Description 10/10/2024 Orders Only [facility] [address] [place], [place] [phone] Jolly London MD [address] [place], [place] [phone] Sensorineural hearing loss, bilateral (Primary Dx) Social [...] Care Team (Late st Contact Info) Description 06/24/2025 1:00 PM EST Medication Management [facility] [address] [place] [phone] Javier Benton, PharmD [address] [place] [address] 07/09/2025 3:30 PM EST Office Visit [facility] [address] [place] [phone] Jolly London MD [address] [place] [address] Scheduled Referrals Name Type Priority Associated Diagnoses Orde r Schedule Referral to Audiology Outpatient Referral Routine Sensorineural hearing loss, bilateral Expected: 10/10/2024 (Approximate), Expires: 10/10/2025 documented as of this encounter Goals Goal Patient Goal Type Associated Problems Recent Progress Patient-Stated? Author Blood Pressure < 140/90 Blood Pressure 140/60( 025 9:43 AM EST) No Javier Benton, PharmD documented as of this encounter Visit Diagnoses Diagnosis Sensorineural hearing loss, bilateral- Primary documented in this encounter Additional Health Concerns Assessment Noted Time PHQ-9 Depression Total Score: 1 08/13/19 25 3:11 PM EST documented as of this encounter Care Teams Regional Operations Manager Relationship Specialty Start Date End Date Jolly London MD [address] [place] [address] PCP - General Family Medicine 06/29/12 Javier Benton, AreliD [address] [place] [phone] Pharmacist Internal Medicine 01/14/23 [facility] 04/21/25 documented as of this encounter
--- OUTSIDE RECORDS SUMMARY | 2025-06-19 14:58 | XMS_ITS | Encounter Summary ---
Author Organization [employer] Address [address] [facility] 7t [place] [address] Care Team Providers Care Offset Machine Operator Name Role Phone Jolly London MD Primary Care Provider [phone] Javier Benton PharmD Unavailable Reason for Referral * Consultation (Routine) - Closed Specialty Diagnoses / Procedures Referred By Contac t Referred To Contact Otolaryngology Diagnoses Dizziness Sensorineural hearing loss, bilateral Jolly London MD [address] [place] [address] Phone: tel: fax: [facility] [address] Phone: tel: fax: Referral ID Status Reason Start Date Expiration Date V isits Requested Visits Authorized [id number] Closed Specialty Services Required 10/15/2024 10/15/2025 1 1 Encounter Details Date Type Department Care Team (Late st Contact Info) Description 10/10/2024 Orders Only [facility] [address] [place], [place] [phone] Jolly London MD [address] [place], [place] [phone] Dizziness (Primary Dx); Sensorineural hearing loss, bilateral [...] Description 06/24/2025 1:00 PM EST Medication Management [facility] [address] [place] [phone] Javier Benton, PharmD [address] [place] [phone] 07/09/2025 3:30 PM EST Office Visit [facility] [address] [place] [phone] Jolly London MD [address] [place] [phone] Pending Results Name Type Priority Associated Diagnoses [...] 025 9:43 AM EST) No Javier Benton, Marc documented as of this encounter Visit Diagnoses Diagnosis Dizziness- Primary Dizziness and giddiness Sensorineural hearing loss, bilateral documented in this encounter Additional Health Concerns Assessment Noted Time PHQ-9 Depression Total Score: 1 08/13/19 25 3:11 PM EST documented as of this encounter Care Teams Offset Machine Operator Relationship Specialty Start Date End Date Jolly London MD [address] [place] [address] PCP - General Family Medicine 06/29/12 Javier Benton, Marc [address] [place] [address] Pharmacist Internal Medicine 01/14/23 [facility] 04/21/25 documented as of this encounter
--- OUTSIDE RECORDS SUMMARY | 2025-06-19 14:58 | XMS_ITS | Encounter Summary ---
Author Organization [employer] Address [address] [facility] 7t [place] [address] Care Team Providers Care Equipment Sales Specialist Name Role Phone Jolly London MD Primary Care Provider [phone] Javier Benton PharmD Unavailable [phone] Reason for Visit * Reason Comments Med Refill Encounter Details Date Type Department Care Team ([facility] st Contact Info) Description 11/13/2023 Refill [facility] [address] [place], [place] [phone] Jolly London MD [address] [place], [place] [phone] Social History Tobacco Use Types Packs/Day Years [...] t he electric, gas, oil or water [employer] threatened to shut off services in your [...] Description 06/24/2025 1:00 PM EST Medication Management [facility] [address] [place] [phone] Javier Benton PharmD [address] [place] [phone] 07/09/2025 3:30 PM EST Office Visit [facility] [address] [place] [phone] Jolly London MD [address] [place] [phone] documented as of this encounter Goals Goal Patient Goal Type Associated Problems Recent Progress Patient-Stated? Author Blood Pressure < 140/90 Blood Pressure 140/60( 025 9:43 AM EST) No Javier Benton PharmD documented as of this encounter Visit Diagnoses Not on filedocumented in this encounter Additional Health Concerns Assessment Noted Time PHQ-9 Depression Total Score: 0 02/15/20 23 1:30 PM EDT documented as of this encounter Care Teams Equipment Sales Specialist Relationship Specialty Start Date End Date Jolly London MD [address] [place] [address] [phone] PCP - General Family Medicine 06/29/12 Javier Benton, Marc [address] [place] [phone] Pharmacist Internal Medicine 01/14/23 [facility] 04/21/25 documented as of this encounter
--- OUTSIDE RECORDS SUMMARY | 2025-06-19 14:58 | XMS_ITS | Encounter Summary ---
Author Organization [employer] Address [address] [facility] 7t [place] [address] Care Team Providers Care Technical Sales Representative Name Role Phone Jolly London MD Primary Care Provider [phone] Javier Benton PharmD Unavailable [phone] Reason for Visit * Reason Comments Med Refill Encounter Details Date Type Department Care Team (Late Contact Info) Description 10/14/2022 Refill [facility] [address] [place] [address] [phone] Ximena Harkins FNP Social History Tobacco Use [...] Department Care Team (Late Contact Info) Description 06/24/2025 1:00 PM EST Medication Management [facility] [address] [place] [address] [phone] Javier Benton, PharmD [address] [place] [address] 07/09/2025 3:30 PM EST Office Visit [facility] [address] [place] [address] Jolly London MD [address] [place], [place] [phone] documented as of this encounter Visit Diagnoses Not on filedocumented in this encounter Care Teams Technical Sales Representative Relationship Specialty Start Date End Date Jolly London MD [address] [place] [address] [phone] PCP - General Family Medicine 06/29/12 Javier Benton, AreliD [address] [place] [address] [phone] Pharmacist Internal Medicine 01/14/23 [facility] 04/21/25 documented as of this encounter
--- OUTSIDE RECORDS SUMMARY | 2025-06-19 14:58 | XMS_ITS | Data Portability ---
Author Organization [place] - [facility] Address [address] [place] [address] Assessment Encounter Date Assessment Date Assessment LastModified by Organization Details LastModified Time 01/05/2021 01/05/2021 Pt to provide medical records from Prev PCP at next visit. Consider labs at next f/u [email or web address] Not available 01/05/2021 15:26:09 01/12/2021 01/12/2021 Reviewed records from [place], [place] Date of last visit 10/15/20 Problem list updated. [email or web address] Not available 01/12/2021 13:07:10 01/20/2021 01/20/2021 Reviewed records from [place], [place] Date of last visit 10/15/20 Problem list updated. [email or web address] Not available 01/20/2021 14:07:00 04/10/2021 04/10/2021 Reviewed records from [place], [place] Date of last visit 10/15/20 Problem list updated. [email or web address] Not available 04/13/2021 08:45:42 07/15/2021 07/15/2021 Reviewed records from [place], [place] Date of last visit 10/15/20 Problem list updated. [email or web address] Not available 07/15/2021 15:03:41 Plan of Treatment Reminders Order Date Submit Date Provider Last Modified By Organization Details Last Modified Time Details Appointments None recorded. Lab CBC w/ auto diff 2020 021 MARIPOSA [facility], [address] [place], [address], 13:36:40 TIBC (total iron-bindin g capacity), serum 2020 021 [facility], [address] [place], [address], 13:36:42 CMP, serum or plasma 2020 021 [facility], [address] [place], [address], 13:36:41 lipid panel, serum 2020 021 [facility], [address] [place], [address], 13:36:42 HbA1c (hemoglobin A1c), blood 2020 021 [facility], [address] [place], [address], 13:36:43 microalbumi n/creatinin e, mass ratio, urine 2020 021 [facility], [address] [place], [address], 13:36:43 urinalysis, dipstick [address] [place] [address] Care, [address], [place], [address], 10:24:06 HbA1c (hemoglobin A1c), blood 2020 021 [facility], [address] [place], [address], 13:37:08 microalbumi n/creatinin e, mass ratio, urine 2020 021 [facility], [address] [place], [address], 1 13:37:07 CMP, serum or plasma 2020 021 MAIRPOSA [facility], [address] [place], [address], 1 13:37:05 lipid panel, serum 2020 021 MARIPOSA [facility], [address] [place], [address], 1 13:37:06 CBC w/ auto diff 2020 021 KIHEI [facility], [address] [place], [address], 1 13:37:04 urinalysis, dipstick 2020 021 [email or web address] 81 [facility], [address], [place], [address], 14:27:26 Referral ENT referral - Reports fullness to left ear. Has insect removal 3 weeks ago- with abrasion . Txd with Ciprodex gtts x 1 week 2020 [email or web address] [facility], [address], [place], [address], 2 17:31:06 urologist referral - urinary symptoms hx prostate cancer 2020 021 MARIPOSA Vazquez MD ([facility]), [address], [place], [address], 14:14:48 Procedures None recorded. Surgeries None recorded. Imaging None recorded. Medication Orders ferrous sulfate 325 mg (65 mg iron) tablet,abel yed release 2020 021 [facility], [address], [place], [address], 15:19:26 Vitamin C 500 mg tablet 2020 [facility], [address], [place], [address], 15:19:24 cyanocobala min (vit B-12) 1,000 mcg tablet 2020 [facility], [address], [place], [address], 15:19:25 glipizide 10 mg tablet 2020 [facility], [address], [place], [address], 15:19:25 metformin 1,000 mg tablet 2020 [facility], [address], [place], [address], 15:19:27 pioglitazon e 45 mg tablet 2020 [facility], [address], [place], [address], 15:19:27 FreeStyle Lite Strips 2020 [facility], [address], [place], [address], 15:19:25 Alcohol Prep Pads 2020 [facility], [address], [place], [address], 15:19:24 atorvastati n 20 mg tablet 2020 [facility], [address], [place], [address], 15:19:25 imipramine [address] [facility] [address], [place], [address], 15:19:24 omeprazole 20 mg capsule,del ayed release [address] [facility], [address], [place], [address], 15:19:26 lisinopril 40 mg tablet [address] [facility], [address], [place], [address], 15:19:27 Adult Low Dose Aspirin 81 mg tablet,abel yed release [address] [facility], [address], [place], [address], 15:19:25 polyethylen e glycol 3350 17 gram/dose oral powder [address] [facility], [address], [place], [address], 13:51:07 FreeStyle Lite Strips [address] [facility], [address], [place], [address], 13:51:07 ketorolac 30 mg/mL (1 mL) injection solution 2020 [email or web address] Not available 14:39:40 DOK 100 mg capsule 2020 [facility], [address] [place], [address], 13:40:44 ferrous sulfate 325 mg (65 mg iron) tablet,abel yed release 2020 021 [facility], [address] [place], [address], 14:11:02 Vitamin C 500 mg tablet 2020 021 [email or web address] 6 [facility], [address] [place], [address], 13:17:44 FreeStyle Lite Strips 2020 021 [facility], [address] [place], [address], 1 14:11:04 Alcohol Prep Pads 2020 021 [email or web address] 6 [facility], [address] [place], [address], 1 13:13:19 Bactrim DS 800 mg-160 mg tablet [email or web address] [place] [address] Pharmacy, [address] [place], [address], 1 15:18:27 Ciprodex 0.3 %-0.1 % ear drops,suspe nsion 2020 [address] [place] [address] Pharmacy, [address] [place], [address], 1 15:04:45 pioglitazon e 45 mg tablet 2020 021 [email or web address] 6 [facility], [address] [place], [address], 09:55:51 atorvastati n 20 mg tablet 2020 021 [email or web address] 6 [facility], [address] [place], [address], 09:54:24 oxybutynin chloride ER 5 mg tablet,exte nded release 24 hr 2020 021 [email or web address] 6 [facility], [address] [place], [address], 1 09:55:30 omeprazole 20 mg capsule,del ayed release 2020 021 [email or web address] 6 [facility], [address] [place], [address], 1 09:55:25 lisinopril 40 mg tablet 2020 021 [email or web address] 6 [facility], [address] [place], [address], 09:55:15 Patient Targets Encounter Date Encounter Id Patient Goals Patient Target Last Modified By Organization Details Last Modified Time 01/05/2021 [id number] see CM plan [email or web address] Not available 01/05/2021 15:25:05 01/12/2021 [id number] see CM plan [email or web address] Not available 01/12/2021 13:19:11 01/20/2021 [id number] See CM Plan [email or web address] Not available 01/20/2021 14:09:48 04/10/2021 [id number] See CM PLan [email or web address] Not available 04/13/2021 08:46:20 07/15/2021 [id number] See CM Plan [email or web address] Not available 07/16/2021 07:55:52 Patient Instructions Encounter Date Encounter Id Patient Instructions Last Modified By Organization Details Last Modified Time 01/05/2021 [id number] Instructed on medications and follow up. Patient is aware of the clinic hours and walk in policy. Alerted patient of call service and how to use it. [email or web address] Not available 01/05/2021 15:25:11 Allergies reviewed. Treatment [...] of care today. Encounter time: 30 min. [email or web address] Not available 01/05/2021 15:25:25 01/12/2021 [id number] Instructed on medications and follow up. Patient is aware of the clinic hours and walk in policy. Alerted patient of call service and how to use it. [email or web address] Not available 01/12/2021 13:19:18 Allergies reviewed. Treatment [...] of care today. Encounter time: 30 min. [email or web address] Not available 01/12/2021 13:19:43 01/20/2021 [id number] Instructed on medications and follow up. Patient is aware of the clinic hours and walk in policy. Alerted patient of call service and how to use it. [email or web address] Not available 01/20/2021 14:09:53 Allergies reviewed. Treatment [...] of care today. Encounter time: 15 min. [email or web address] Not available 01/20/2021 14:10:14 04/10/2021 [id number] mini mental stat e exam [email or web address] Not available 04/10/2021 13:51:03 Instructed on medications and follow up. Patient is aware of the clinic hours and walk in policy. Alerted patient of call service and how to use it. [email or web address] Not available 04/13/2021 08:46:24 Allergies reviewed. Treatment [...] of care today. Encounter time: 15 min. [email or web address] Not available 04/13/2021 08:46:41 07/15/2021 [id number] eating healthy foods: care instructions [email or web address] Not available 07/15/2021 15:19:11 C MO comer alimentos saludables: instrucciones de cuidado - [eating healthy foods: care instructions] [email or web address] Not available 07/15/2021 15:19:11 fall risk assessment* [email or web address] Not available 10/02/2021 09:13:33 Instructed on medications and follow up. Patient is aware of the clinic hours and walk in policy. Alerted patient of call service and how to use it. [email or web address] Not available 07/16/2021 07:55:57 Allergies reviewed. Treatment [...] of care today. Encounter time: 15 min. [email or web address] Not available 07/16/2021 07:56:15 Reason for Referral Urologist Referral for Urina ry symptoms reports urinary symptoms- hx proatate ca. Needs to est. with urologist - reloacted from [place] urinary symptoms hx prostate cancer Referring Physician: Carmen Rick [facility], Encounter Date: 01/05/2021 ENT Referral for Abrasion of skin of left ear fullness to left ear. Has insect removal 3 weeks ago- with abrasion . Txd with Ciprodex gtts x 1 wee Reports fullness to left ear. Has insect removal 3 weeks ago- with abrasion . Txd with Ciprodex gtts x 1 week Referring Physician: Carmen Rick [facility], Encounter Date: 01/12/2021 Results Created Date Observation Date Name Description Value Unit Range Abnormal Flag Note LastModifiedBy Organization Detail LastModifiedTime 01/06/20 21 01/05/2021 urina lysis , dipst ick leukocytes 2+ none negati ve abnormal Not Available [facility] [address], [place], [address], 01/05/2021 13:53:20 01/06/20 21 01/05/2021 urina lysis , dipst ick nitrite negati ve none negati ve normal Not Available [facility] [address], [place], [address], 01/05/2021 13:53:20 01/06/20 21 01/05/2021 urina lysis , dipst ick urobilinogen 0.2 eu/dL 0.2-[address] [facility] [address], [place], [address], 01/05/2021 13:53:20 01/06/20 21 01/05/2021 urina lysis , dipst ick protein 1+ none negati ve abnormal Not Available [facility] [address], [place], [address], 01/05/2021 13:53:20 01/06/20 21 01/05/2021 urina lysis , dipst ick pH 7.0 none 4.6-[address] [facility] [address], [place], [address], 01/05/2021 13:53:20 01/06/20 21 01/05/2021 urina lysis , dipst ick blood 1+ none negati ve abnormal Not Available [facility] [address], [place], [address], 01/05/2021 13:53:20 01/06/20 21 01/05/2021 urina lysis , dipst ick specific gravity 1.025 none 1.007- 1.[address] [facility] [address], [place], [address], 01/05/2021 13:53:20 01/06/20 21 01/05/2021 urina lysis , dipst ick ketone negati ve none negati ve normal Not Available [facility] [address], [place], [address], 01/05/2021 13:53:20 01/06/20 21 01/05/2021 urina lysis , dipst ick bilirubin negati ve none negati ve normal Not Available [facility] [address], [place], [address], 01/05/2021 13:53:20 01/06/20 21 01/05/2021 urina lysis , dipst ick glucose negati ve none negati ve normal Not Available [facility] [address], [place], [address], 01/05/2021 13:53:20 01/06/20 21 01/05/2021 urina lysis , dipst ick appearance none clear Not Available [facility] [address], [place], [address], 01/05/2021 13:53:20 01/06/20 21 01/05/2021 urina lysis , dipst ick color yellow none colorl ess-am lloyd normal Not Available [facility] [address], [place], [address], 01/05/2021 13:53:20 01/06/20 21 01/05/2021 urina lysis , dipst ick clarity CLEAR clear normal Not Available [facility] [address], [place], [address], 01/05/2021 13:53:20 01/13/20 21 01/13/2021 CBC WITH DIFFE RENTI AL/PL ATELE T WBC 6.1 x10e3 /uL 3.4-10 .8 Not Available [facility] ([facility]) [address] [place], [address], 01/13/2021 13:37:04 01/13/20 21 01/13/2021 CBC WITH DIFFE RENTI AL/PL ATELE T RBC 4.13 x10e6 /uL 4.14-5 .80 below low normal Not Available [facility] ([facility]) [address] [place], [address], 01/13/2021 13:37:04 01/13/20 21 01/13/2021 CBC WITH DIFFE RENTI AL/PL ATELE T hemoglobin 11.4 g/dL 13.0-1 7.7 below low normal Not Available [facility] ([facility]) [address] [place], [address], 01/13/2021 13:37:04 01/13/20 21 01/13/2021 CBC WITH DIFFE RENTI AL/PL ATELE T hematocrit 34.9 % 37.5-5 1.0 below low normal Not Available [facility] ([facility]) [address] [place], [address], 01/13/2021 13:37:04 01/13/20 21 01/13/2021 CBC WITH DIFFE RENTI AL/PL ATELE T MCV 85 fL 79-97 Not Available [facility] ([facility]) [address] [facility], [place], [address], 01/13/2021 13:37:04 01/13/20 21 01/13/2021 CBC WITH DIFFE RENTI AL/PL ATELE T MCH 27.6 pg 26.6-3 3.0 Not Available [facility] ([facility]) [address] [facility], [place], [address], 01/13/2021 13:37:04 01/13/20 21 01/13/2021 CBC WITH DIFFE RENTI AL/PL ATELE T MCHC 32.7 g/dL 31.5-3 5.7 Not Available [facility] ([facility]) [address] [facility], [place], [address], 01/13/2021 13:37:04 01/13/20 21 01/13/2021 CBC WITH DIFFE RENTI AL/PL ATELE T RDW 14.4 % 11.6-1 5.4 Not Available [facility] ([facility]) [address] [facility], [place], [address], 01/13/2021 13:37:04 01/13/2001/13/2021 CBC WITH DIFFE RENTI AL/PL ATELE T platelets 237 x10e3 /uL 150-45 0 Not Available [facility] ([facility]) [address] [place], [address], 01/13/2021 13:37:04 01/13/20 21 01/13/2021 CBC WITH DIFFE RENTI AL/PL ATELE T neutrophils 59 % not estab. Not Available [facility] ([facility]) [address] [place], [address], 01/13/2021 13:37:04 01/13/20 21 01/13/2021 CBC WITH DIFFE RENTI AL/PL ATELE T lymphs 30 % not estab. Not Available [facility] ([facility]) [address] [facility], [place], [address], 01/13/2021 13:37:04 01/13/20 21 01/13/2021 CBC WITH DIFFE RENTI AL/PL ATELE T monocytes 9 % not estab. Not Available [facility] ([facility]) [address] [facility], [place], [address], 01/13/2021 13:37:04 01/13/20 21 01/13/2021 CBC WITH DIFFE RENTI AL/PL ATELE T eos 1 % not estab. Not Available [facility] ([facility]) [address] [facility], [place], [address], 01/13/2021 13:37:04 01/13/20 21 01/13/2021 CBC WITH DIFFE RENTI AL/PL ATELE T basos 1 % not estab. Not Available [facility] ([facility]) [address] [facility], [place], [address], 01/13/2021 13:37:04 01/13/20 21 01/13/2021 CBC WITH DIFFE RENTI AL/PL ATELE T neutrophils (absolute) 3.6 x10e3 /uL 1.4-7. 0 Not Available [facility] ([facility]) [address] [facility], [place], [address], 01/13/2021 13:37:04 01/13/20 21 01/13/2021 CBC WITH DIFFE RENTI AL/PL ATELE T lymphs (absolute) 1.8 x10e3 /uL 0.7-3. 1 Not Available [facility] ([facility]) [address] [facility], [place], [address], 01/13/2021 13:37:04 01/13/20 21 01/13/2021 CBC WITH DIFFE RENTI AL/PL ATELE T monocytes(ab solute) 0.6 x10e3 /uL 0.1-0. 9 Not Available [facility] ([facility]) [address] [place], [address], 01/13/2021 13:37:04 01/13/20 21 01/13/2021 CBC WITH DIFFE RENTI AL/PL ATELE T eos (absolute) 0.1 x10e3 /uL 0.0-0. 4 Not Available [facility] ([facility]) [address] [facility], [place], [address], 01/13/2021 13:37:04 01/13/20 21 01/13/2021 CBC WITH DIFFE RENTI AL/PL ATELE T baso (absolute) 0.0 x10e3 /uL 0.0-0. 2 Not Available [facility] ([facility]) [address] [place], [address], 01/13/2021 13:37:04 01/13/20 21 01/13/2021 CBC WITH DIFFE RENTI AL/PL ATELE T immature granulocytes 0 % not estab. Not Available [facility] ([facility]) [address] [place], [address], 01/13/2021 13:37:04 01/13/20 21 01/13/2021 CBC WITH DIFFE RENTI AL/PL ATELE T immature grans (abs) 0.0 x10e3 /uL 0.0-0. 1 Not Available [facility] ([facility]) [address] [place], [address], 01/13/2021 13:37:04 01/13/20 21 01/13/2021 COMP. METAB OLIC PANEL (14) glucose 184 mg/dL 65-99 above high normal Not Available [facility] ([facility]) [address] [place], [address], 01/13/2021 13:37:05 01/13/20 21 01/13/2021 COMP. METAB OLIC PANEL (14) BUN 20 mg/dL 8-27 Not Available [facility] ([facility]) [address] [facility], [place], [address], 01/13/2021 13:37:05 01/13/20 21 01/13/2021 COMP. METAB OLIC PANEL (14) creatinine 1.25 mg/dL 0.76-1 .27 Not Available [facility] ([facility]) [address] [facility], [place], [address], 01/13/2021 13:37:05 01/13/20 21 01/13/2021 COMP. METAB OLIC PANEL (14) eGFR if nonafricn AM 53 mL/mi n/1.7 3 >59 below low normal Not Available [facility] ([facility]) [address] [facility], [place], [address], 01/13/2021 13:37:05 01/13/20 21 01/13/2021 COMP. METAB [...] SN Task force . Not Available [facility] ([facility]) [address] [facility], [place], [address], 01/13/2021 13:37:05 01/13/20 21 01/13/2021 COMP. METAB OLIC PANEL (14) BUN/creatini ne ratio 16 10-24 Not Available [facility] ([facility]) [address] [facility], [place], [address], 01/13/2021 13:37:05 01/13/20 21 01/13/2021 COMP. METAB OLIC PANEL (14) sodium 139 mmol/ L 134-14 4 Not Available [facility] ([facility]) [address] [facility] [place], [address], 01/13/2021 13:37:05 01/13/20 21 01/13/2021 COMP. METAB OLIC PANEL (14) potassium 4.9 mmol/ L 3.5-5. 2 Not Available [facility] ([facility]) [address] [place], [address], 01/13/2021 13:37:05 01/13/20 21 01/13/2021 COMP. METAB OLIC PANEL (14) chloride 102 mmol/ L 96-106 Not Available [facility] ([facility]) [address] [place], [address], 01/13/2021 13:37:05 01/13/20 21 01/13/2021 COMP. METAB OLIC PANEL (14) carbon dioxide, total 24 mmol/ L - Not Available [facility] ([facility]) [address] [place], [address], 01/13/2021 13:37:05 01/13/20 21 01/13/2021 COMP. METAB OLIC PANEL (14) calcium 9.2 mg/dL 8.6-10 .2 Not Available [facility] ([facility]) [address] [facility] [place], [address], 01/13/2021 13:37:05 01/13/20 21 01/13/2021 COMP. METAB OLIC PANEL (14) protein, total 6.2 g/dL 6.0-8. 5 Not Available [facility] ([facility]) [address] [facility] [place], [address], 01/13/2021 13:37:05 01/13/20 21 01/13/2021 COMP. METAB OLIC PANEL (14) albumin 4.2 g/dL 3.6-4. 6 Not Available [facility] ([facility]) [address] [place], [place], [address], 01/13/2021 13:37:05 01/13/20 21 01/13/2021 COMP. METAB OLIC PANEL (14) globulin, total 2.0 g/dL 1.5-4. 5 Not Available [facility] ([facility]) [address], [place], [address], 01/13/2021 13:37:05 01/13/20 21 01/13/2021 COMP. METAB OLIC PANEL (14) A/G ratio 2.1 1.2-2. 2 Not Available [facility] ([facility]) [address], [place], [address], 01/13/2021 13:37:05 01/13/20 21 01/13/2021 COMP. METAB OLIC PANEL (14) bilirubin, total 0.3 mg/dL 0.0-1. 2 Not Available [facility] ([facility]) [address], [place], [address], 01/13/2021 13:37:05 01/13/20 21 01/13/2021 COMP. METAB OLIC PANEL (14) alkaline phosphatase 97 IU/L 48-121 Not Available [facility] ([facility]) [address] [facility], [place], [address], 01/13/2021 13:37:05 01/13/20 21 01/13/2021 COMP. METAB OLIC PANEL (14) AST (SGOT) 17 IU/L 0-40 Not Available [facility] ([facility]) [address] [facility], [place], [address], 01/13/2021 13:37:05 01/13/20 21 01/13/2021 COMP. METAB OLIC PANEL (14) ALT (SGPT) 11 IU/L 0-44 Not Available [facility] ([facility]) [address] [facility], [place], [address], 01/13/2021 13:37:05 01/13/20 21 01/13/2021 LIPID PANEL cholesterol, total 143 mg/dL 100-19 9 Not Available [facility] ([facility]) [address] [facility], [place], [address], 01/13/2021 13:37:06 01/13/20 21 01/13/2021 LIPID PANEL triglyceride s 153 mg/dL 0-149 above high normal Not Available [facility] ([facility]) [address] [facility], [place], [address], 01/13/2021 13:37:06 01/13/20 21 01/13/2021 LIPID PANEL HDL cholesterol 40 mg/dL >39 Not Available [facility] ([facility]) [address] [facility], [place], [address], 01/13/2021 13:37:06 01/13/20 21 01/13/2021 LIPID PANEL VLDL cholesterol ishmael 27 mg/dL 5-40 Not Available [facility] ([facility]) [address] [place], [address], 01/13/2021 13:37:06 01/13/20 21 01/13/2021 LIPID PANEL LDL chol calc ([facility]) 76 mg/dL 0-99 Not Available [facility] ([facility]) [address] [place], [address], 01/13/2021 13:37:06 01/13/20 21 01/13/2021 ALBUM IN/CR EAT RATIO , RANDO M UR creatinine, urine 155.9 mg/dL not estab. Not Available [facility] ([facility]) [address] [place], [address], 01/13/2021 13:37:07 01/13/20 21 01/13/2021 ALBUM IN/CR EAT RATIO , RANDO M UR albumin, urine 25.7 ug/mL not estab. Not Available [facility] ([facility]) [address] [facility], [place], [address], 01/13/2021 13:37:07 01/13/20 21 01/13/2021 ALBUM IN/CR EAT RATIO , GURINDER García UR alb/creat ratio 16 mg/g_ creat 0-29 María l: 0 - 29 Moder ately incre ased: 30 - 300 Sever roayl incre ased: >300 Not Available [facility] ([facility]) [address] [facility], [place], [address], 01/13/2021 13:37:07 01/13/20 21 01/13/2021 HEMOG LOBIN A1C hemoglobin A1C 6.8 % 4.8-5. 6 above high normal . Predi abete s: 5.7 - 6.4 Diabe hcel: >6.4 Glyce ad contr ol for adult s with diabe chel: <7.0 Not Available [facility] ([facility]) [address] [facility], [place], [address], 01/13/2021 13:37:08 01/13/20 21 01/12/2021 urina lysis , dipst ick leukocytes trace none negati ve abnormal Not Available [facility] [address], [place], [address], 01/12/2021 10:14:17 01/13/20 21 01/12/2021 urina lysis , dipst ick nitrite negati ve none negati ve normal Not Available [facility] [address], [place], [address], 01/12/2021 10:14:17 01/13/20 21 01/12/2021 urina lysis , dipst ick urobilinogen 0.2 eu/dL 0.2-[address] [facility] [address], [place], [address], 01/12/2021 10:14:17 01/13/20 21 01/12/2021 urina lysis , dipst ick protein negati ve none negati ve normal Not Available [facility] [address], [place], [address], 01/12/2021 10:14:17 01/13/20 21 01/12/2021 urina lysis , dipst ick pH 5.5 none 4.6-[address] [facility] [address], [place], [address], 01/12/2021 10:14:17 01/13/20 21 01/12/2021 urina lysis , dipst ick blood negati ve none negati ve normal Not Available [facility] [address], [place], [address], 01/12/2021 10:14:17 01/13/20 21 01/12/2021 urina lysis , dipst ick specific gravity 1.025 none 1.007- 1.[address] [facility] [address], [place], [address], 01/12/2021 10:14:17 01/13/20 21 01/12/2021 urina lysis , dipst ick ketone negati ve none negati ve normal Not Available [facility] [address], [place], [address], 01/12/2021 10:14:17 01/13/20 21 01/12/2021 urina lysis , dipst ick bilirubin negati ve none negati ve normal Not Available [facility] [address], [place], [address], 01/12/2021 10:14:17 01/13/20 21 01/12/2021 urina lysis , dipst ick glucose negati ve none negati ve normal Not Available [facility] [address], [place], [address], 01/12/2021 10:14:17 01/13/20 21 01/12/2021 urina lysis , dipst ick appearance none clear Not Available [facility] [address], [place], [address], 01/12/2021 10:14:17 01/13/20 21 01/12/2021 urina lysis , dipst ick color yellow none colorl ess-am lloyd normal Not Available [facility] [address], [place], [address], 01/12/2021 10:14:17 01/13/20 21 01/12/2021 urina lysis , dipst ick clarity CLEAR clear normal Not Available [facility] [address], [place], [address], 01/12/2021 10:14:17 07/15/20 21 07/16/2021 CBC WITH DIFFE RENTI AL/PL ATELE T WBC 5.4 x10e3 /uL 3.4-10 .8 Not Available [facility] ([facility]) [address] [place], [address], 07/16/2021 13:36:40 07/15/20 21 07/16/2021 CBC WITH DIFFE RENTI AL/PL ATELE T RBC 4.44 x10e6 /uL 4.14-5 .80 Not Available [facility] ([facility]) [address] [place], [address], 07/16/2021 13:36:40 07/15/20 21 07/16/2021 CBC WITH DIFFE RENTI AL/PL ATELE T hemoglobin 11.8 g/dL 13.0-1 7.7 below low normal Not Available [facility] ([facility]) [address] [place], [address], 07/16/2021 13:36:40 07/15/20 21 07/16/2021 CBC WITH DIFFE RENTI AL/PL ATELE T hematocrit 36.8 % 37.5-5 1.0 below low normal Not Available [facility] ([facility]) [address] [facility], [place], [address], 07/16/2021 13:36:40 07/15/20 21 07/16/2021 CBC WITH DIFFE RENTI AL/PL ATELE T MCV 83 fL 79-97 Not Available [facility] ([facility]) [address] [facility], [place], [address], 07/16/2021 13:36:40 07/15/20 21 07/16/2021 CBC WITH DIFFE RENTI AL/PL ATELE T MCH 26.6 pg 26.6-3 3.0 Not Available [facility] ([facility]) [address] [facility], [place], [address], 07/16/2021 13:36:40 07/15/20 21 07/16/2021 CBC WITH DIFFE RENTI AL/PL ATELE T MCHC 32.1 g/dL 31.5-3 5.7 Not Available [facility] ([facility]) [address] [place], [address], 07/16/2021 13:36:40 07/15/20 21 07/16/2021 CBC WITH DIFFE RENTI AL/PL ATELE T RDW 15.4 % 11.6-1 5.4 Not Available [facility] ([facility]) [address] [place], [address], 07/16/2021 13:36:40 07/15/20 21 07/16/2021 CBC WITH DIFFE RENTI AL/PL ATELE T platelets 224 x10e3 /uL 150-45 0 Not Available [facility] ([facility]) [address] [place], [address], 07/16/2021 13:36:40 07/15/20 21 07/16/2021 CBC WITH DIFFE RENTI AL/PL ATELE T neutrophils 60 % not estab. Not Available [facility] ([facility]) [address] [facility], [place], [address], 07/16/2021 13:36:40 07/15/20 21 07/16/2021 CBC WITH DIFFE RENTI AL/PL ATELE T lymphs 28 % not estab. Not Available [facility] ([facility]) [address] [facility], [place], [address], 07/16/2021 13:36:40 07/15/20 21 07/16/2021 CBC WITH DIFFE RENTI AL/PL ATELE T monocytes 11 % not estab. Not Available [facility] ([facility]) [address] [facility], [place], [address], 07/16/2021 13:36:40 07/15/20 21 07/16/2021 CBC WITH DIFFE RENTI AL/PL ATELE T eos 1 % not estab. Not Available [facility] ([facility]) [address] [facility], [place], [address], 07/16/2021 13:36:40 07/15/20 21 07/16/2021 CBC WITH DIFFE RENTI AL/PL ATELE T basos 0 % not estab. Not Available [facility] ([facility]) [address] [facility], [place], [address], 07/16/2021 13:36:40 07/15/20 21 07/16/2021 CBC WITH DIFFE RENTI AL/PL ATELE T neutrophils (absolute) 3.1 x10e3 /uL 1.4-7. 0 Not Available [facility] ([facility]) [address] [facility], [place], [address], 07/16/2021 13:36:40 07/15/20 21 07/16/2021 CBC WITH DIFFE RENTI AL/PL ATELE T lymphs (absolute) 1.5 x10e3 /uL 0.7-3. 1 Not Available [facility] ([facility]) [address] [facility], [place], [address], 07/16/2021 13:36:40 07/15/20 21 07/16/2021 CBC WITH DIFFE RENTI AL/PL ATELE T monocytes(ab solute) 0.6 x10e3 /uL 0.1-0. 9 Not Available [facility] ([facility]) [address] [facility], [place], [address], 07/16/2021 13:36:40 07/15/20 21 07/16/2021 CBC WITH DIFFE RENTI AL/PL ATELE T eos (absolute) 0.1 x10e3 /uL 0.0-0. 4 Not Available [facility] ([facility]) [address] [facility], [place], [address], 07/16/2021 13:36:40 07/15/20 21 07/16/2021 CBC WITH DIFFE RENTI AL/PL ATELE T baso (absolute) 0.0 x10e3 /uL 0.0-0. 2 Not Available [facility] ([facility]) [address] [place], [address], 07/16/2021 13:36:40 07/15/20 21 07/16/2021 CBC WITH DIFFE RENTI AL/PL ATELE T immature granulocytes 0 % not estab. Not Available [facility] ([facility]) [address] [facility], [place], [address], 07/16/2021 13:36:40 07/15/20 21 07/16/2021 CBC WITH DIFFE RENTI AL/PL ATELE T immature grans (abs) 0.0 x10e3 /uL 0.0-0. 1 Not Available [facility] ([facility]) [address] [place], [address], 07/16/2021 13:36:40 07/15/20 21 07/16/2021 COMP. METAB OLIC PANEL (14) glucose 133 mg/dL 65-99 above high normal Not Available [facility] ([facility]) [address] [facility], [place], [address], 07/16/2021 13:36:41 07/15/20 21 07/16/2021 COMP. METAB OLIC PANEL (14) BUN 15 mg/dL 8-27 Not Available [facility] ([facility]) [address] [facility], [place], [address], 07/16/2021 13:36:41 07/15/20 21 07/16/2021 COMP. METAB OLIC PANEL (14) creatinine 1.08 mg/dL 0.76-1 .27 Not Available [facility] ([facility]) [address] [facility], [place], [address], 07/16/2021 13:36:41 07/15/20 21 07/16/2021 COMP. METAB OLIC PANEL (14) eGFR if nonafricn AM 63 mL/mi n/1.7 3 >59 Not Available [facility] ([facility]) [address] [facility], [place], [address], 07/16/2021 13:36:41 07/15/20 21 07/16/2021 COMP. METAB [...] a race varia ble. Not Available [facility] ([facility]) [address] [facility], [place], [address], 07/16/2021 13:36:41 07/15/20 21 07/16/2021 COMP. METAB OLIC PANEL (14) BUN/creatini ne ratio 14 10-24 Not Available [facility] ([facility]) [address] [facility], [place], [address], 07/16/2021 13:36:41 07/15/20 21 07/16/2021 COMP. METAB OLIC PANEL (14) sodium 145 mmol/ L 134-14 4 above high normal Not Available [facility] ([facility]) [address] [facility] [place], [address], 07/16/2021 13:36:41 07/15/20 21 07/16/2021 COMP. METAB OLIC PANEL (14) potassium 4.2 mmol/ L 3.5-5. 2 Not Available [facility] ([facility]) [address] [facility] [place], [address], 07/16/2021 13:36:41 07/15/20 21 07/16/2021 COMP. METAB OLIC PANEL (14) chloride 104 mmol/ L 96-106 Not Available [facility] ([facility]) [address] [facility] [place], [address], 07/16/2021 13:36:41 07/15/20 21 07/16/2021 COMP. METAB OLIC PANEL (14) carbon dioxide, total 24 mmol/ L - Not Available [facility] ([facility]) [address] [facility] [place], [address], 07/16/2021 13:36:41 07/15/20 21 07/16/2021 COMP. METAB OLIC PANEL (14) calcium 8.8 mg/dL 8.6-10 .2 Not Available [facility] ([facility]) [address] [facility] [place], [address], 07/16/2021 13:36:41 07/15/20 21 07/16/2021 COMP. METAB OLIC PANEL (14) protein, total 6.4 g/dL 6.0-8. 5 Not Available [facility] ([facility]) [address] [facility] [place], [address], 07/16/2021 13:36:41 07/15/20 21 07/16/2021 COMP. METAB OLIC PANEL (14) albumin 4.2 g/dL 3.6-4. 6 Not Available [facility] ([facility]) [address] [facility], [place], [address], 07/16/2021 13:36:41 07/15/20 21 07/16/2021 COMP. METAB OLIC PANEL (14) globulin, total 2.2 g/dL 1.5-4. 5 Not Available [facility] ([facility]) [address] [facility], [place], [address], 07/16/2021 13:36:41 07/15/20 21 07/16/2021 COMP. METAB OLIC PANEL (14) A/G ratio 1.9 1.2-2. 2 Not Available [facility] ([facility]) [address] [facility], [place], [address], 07/16/2021 13:36:41 07/15/20 21 07/16/2021 COMP. METAB OLIC PANEL (14) bilirubin, total 0.5 mg/dL 0.0-1. 2 Not Available [facility] ([facility]) [address] [facility], [place], [address], 07/16/2021 13:36:41 07/15/20 21 07/16/2021 COMP. METAB OLIC PANEL (14) alkaline phosphatase 100 IU/L 44-121 Ple ase note refer ence inter loli chinchilla e Not Available [facility] ([facility]) [address] [facility], [place], [address], 07/16/2021 13:36:41 07/15/20 21 07/16/2021 COMP. METAB OLIC PANEL (14) AST (SGOT) 15 IU/L 0-40 Not Available [facility] ([facility]) [address] [facility], [place], [address], 07/16/2021 13:36:41 07/15/20 21 07/16/2021 COMP. METAB OLIC PANEL (14) ALT (SGPT) 12 IU/L 0-44 Not Available [facility] ([facility]) [address] [place], [address], 07/16/2021 13:36:41 07/15/20 21 07/16/2021 LIPID PANEL cholesterol, total 198 mg/dL 100-19 9 Not Available [facility] ([facility]) [address] [place], [address], 07/16/2021 13:36:42 07/15/20 21 07/16/2021 LIPID PANEL triglyceride s 219 mg/dL 0-149 above high normal Not Available [facility] ([facility]) [address] [place], [address], 07/16/2021 13:36:42 07/15/20 21 07/16/2021 LIPID PANEL HDL cholesterol 50 mg/dL >39 Not Available [facility] ([facility]) [address] [place], [address], 07/16/2021 13:36:42 07/15/20 21 07/16/2021 LIPID PANEL VLDL cholesterol ishmael 38 mg/dL 5-40 Not Available [facility] ([facility]) [address] [place], [address], 07/16/2021 13:36:42 07/15/20 21 07/16/2021 LIPID PANEL LDL chol calc ([facility]) 110 mg/dL 0-99 above high normal Not Available [facility] ([facility]) [address] [place], [address], 07/16/2021 13:36:42 07/15/20 21 07/16/2021 IRON AND TIBC iron bind.cap.(TI BC) 256 ug/dL 250-45 0 Not Available [facility] ([facility]) [address] [place], [address], 07/16/2021 13:36:42 07/15/20 21 07/16/2021 IRON AND TIBC UIBC 204 ug/dL 111-34 3 Not Available [facility] ([facility]) [address] [place], [address], 07/16/2021 13:36:42 07/15/20 21 07/16/2021 IRON AND TIBC iron 52 ug/dL 38-169 Not Available [facility] ([facility]) [address] [facility], [place], [address], 07/16/2021 13:36:42 07/15/20 21 07/16/2021 IRON AND TIBC iron saturation 20 % 15-55 Not Available [facility] ([facility]) [address] [place], [address], 07/16/2021 13:36:42 07/15/20 21 07/16/2021 ALBUM IN/CR EAT RATIO , GURINDER García UR creatinine, urine 158.2 mg/dL not estab. Not Available [facility] ([facility]) [address] [place], [address], 07/16/2021 13:36:43 07/15/20 21 07/16/2021 ALBUM IN/CR EAT RATIO , GURINDERO M UR albumin, urine 36.1 ug/mL not estab. Not Available [facility] ([facility]) [address] [place], [address], 07/16/2021 13:36:43 07/15/20 21 07/16/2021 ALBUM IN/CR EAT RATIO , RANDO M UR alb/creat ratio 23 mg/g_ creat 0-29 María l: 0 - 29 Moder ately incre ased: 30 - 300 Sever royal incre ased: >300 Not Available [facility] ([facility]) [address] [place], [address], 07/16/2021 13:36:43 07/15/2007/16/2021 HEMOG LOBIN A1C hemoglobin A1C 6.9 % 4.8-5. 6 above high normal . Predi abete s: 5.7 - 6.4 Diabe chel: >6.4 Glyce ad contr ol for adult s with diabe chel: <7.0 Not Available [facility] ([facility]) [address], [place], [address], 07/16/2021 13:36:43 Result Notes None recorded. Problems Name Problem SNOMED Code Status Onset Date Resolution Date Notes Provider Name and Address Organization Details Recorded Time Essential hypertensi on 76089310 Active 2020 Li Collins [facility] 13:49:58 Diabetes mellitus 46592204 Active 2020 type2 Carmen Rick APRN [address] [place], [place], [address] [place] [address] , [facility] 13:05:29 Hyperlipid emia 18409462 Active 2020 Lijeff Garridoers [facility] 13:50:22 Primary malignant neoplasm of prostate 26090401 Active 2020 Li Dennis [facility] 13:50:55 Polyp of colon 58265350 Active 2020 Carmen Rick APRN [address] [place], [place], [address] [place] [address] , [facility] 13:04:06 Anemia of chronic disease 020921513 Active 2020 Carmen Rick APRN [address] [place], [address] [place] [address] , [facility] 13:04:48 Neurogenic urinary bladder 934393715 Active 2020 Carmen Rick APRN [address] [place], [address], [facility] 13:05:03 Gastroesop hageal reflux disease 087797690 Active 2020 Carmen Rick APRN [address] [place], [address] [place] [address], [facility] 13:05:34 History of Helicobact er pylori infection 1873431525164 9108 Active 2020 Carmen Rick APRN [address] [place], [place], [address] [place] [address], [facility] 13:06:09 Sensorineu ral hearing loss of bilateral ears 568363300 Active 2020 Carmen Rick APRN [address] 13:06:24 Pain of left shoulder joint 8361058359970 9109 Active 2020 Carmen Rick APRN [address] [place] [address] , [facility], [facility] 13:14:51 Bilateral knee pain Active 2020 Carmen Rick APRN [address], [facility] 08:45:58 Memory impairment 555679271 Active 2020 Carmen Rick APRN [address] [place] [address], [facility] 08:46:00 Hematochez ia 648097711 Active 2020 Carmen Rick APRN [address] 08:46:01 Chronic constipati on 169758291 Active 2020 Carmen Rick APRN [address] [facility] 08:46:06 Hemoglobin below reference range 719802276 Active 2020 Carmen Rick APRN [address] [place], [place], [address] [place] [address] 08:46:07 Type 2 diabetes mellitus 34737635 Active 2020 Carmen Rick APRN [address] [place], [address] [place] [address] 07:54:27 Urinary symptoms 240216048 Active 2020 Carmen Rick APRN [address] [place], [address] [place] [address] 07:54:29 Obesity 790646774 Active 2020 Carmen Rick APRN [address] [place], [address] [place] [address] 07:54:31 Dyslipidem ia 277375496 Active 2020 Carmen Rick APRN [address] [place], [address] [place] [address] 07:54:38 Gastroesop hageal reflux disease without esophagiti s 697534142 Active 2020 Carmen Rick APRN [address] [place], [address] [place] [address] 07:54:55 Tobacco dependence in remission 509612305 Active 2020 Carmen Rick APRN [address] [place], [address] [place] [address] 07:54:57 Vaccine declined by patient 824520558692 Active 2020 Carmen Rick APRN [address] [place], [address] [place] [address] , [facility] 07:55:21 Advance directive discussed with patient 372514150 Active 2020 Carmen Rick APRN [address] [place], [address] [place] [address] 07:55:23 At increased risk for falls 380313731 Active 2020 Carmen Rick APRN [address] 07:55:24 Secondary immune deficiency disorder 38317704 Active 2020 Carmen Rick APRN [address] [place], [address] [place] [address] 07:56:40 Problem Notes None recorded. Procedures Surgical History Date Name Laterality Status Provider Name and Address Organization Details Recorded Time 8 prostatectomy completed [facility] 01/05/2021 13:52:29 Imaging Results None recorded. Procedure Notes None recorded. Medical Equipment None Reported. Allergies Allergen ID Allergen Name Allergen Category Reaction Reaction Severity Criticality Documentation Date Start Date Code Code System Note Provider Name and Address Organization Details Recorded Time 27071 oxycodone medicatio n Not available Not available Not available 01/05/2021 7804 RxNorm [facility] 13:46:10 Medications Name Sig Start Date [...] (BMI) Body height Body temperature Oxygen saturation Heart rate Respiratory rate Systolic And Diastolic Provider Name and Address Organization Details Last Updated DateTime 1 56425.6 4 g 32.3 kg/m2 156.21 cm 97.6 [degF] 98 % 97 /min 18 /min 129/68 mm[Hg] Li Collins [facility] 13:45:40 Date Recorded Body height Body mass index (BMI) Body weight Heart rate Respiratory rate Body temperature Oxygen saturation Systolic And Diastolic Provider Name and Address Organization Details Last Updated DateTime 1 156.21 cm 31.8 kg/m2 14620.3 g 98 /min 17 /min 98 [degF] 97 % 126/76 mm[Hg] [facility] 09:52:13 Date Recorded Body height Body mass index (BMI) Body weight Provider Name and Address Organization Details Last Updated DateTime 01/20/2021 156.21 cm 31.6 kg/m2 89223.7 g Liyahemma Lockhart [facility] 01/20/2021 13:41:21 Date Recorded Body height Body mass index (BMI) Body weight Respiratory rate Body temperature Oxygen saturation Heart rate Systolic And Diastolic Provider Name and Address Organization Details Last Updated DateTime 1 156.21 cm 32 kg/m2 19699.8 9 g 18 /min 98.3 [degF] 99 % 77 /min 122/78 mm[Hg] [facility] 13:12:46 Date Recorded Body height Body mass index (BMI) Body weight Heart rate Respiratory rate Body temperature Oxygen saturation Systolic And Diastolic Provider Name and Address Organization Details Last Updated DateTime 1 156.21 cm 32 kg/m2 72591.5 9 g 96 /min 18 /min 98.1 [degF] 97 % 124/81 mm[Hg] Mylene Snell [facility] 14:57:50 Social History Question Answer Notes LastModified by Organizat ion Details LastModified Time Tobacco Smoking Status Never Smoker Li Collins [facility] 01/05/2021 13:51:55 Medical Terms Are Complicated, And Many People Find The Words Difficult To Understand. Do You Ever Get Help From Others In Filling Out Forms, Reading Prescription Labels, Insurance Forms, Or Health Education Sheets? Often [email or web address] Information no t available 01/12/2021 Are You Worried About Losing Your Housing? No [email or web address] Information not available 01/12/2021 In The Past Year Have You Or Any Of Your Family Members Been Unable To Get MILL DRESSER When It Was Really Needed? No Information n ot available 01/12/2021 In The Past Year Have You Or Any Of Your Family Members Been Unable To Get CLOTHING When It Was Really Needed? No [email or web address] Information n ot available 01/12/2021 In The Past Year Have You Or Any Of Your Family Members Been Unable To Get FOOD When It Was Really Needed? No [email or web address] Information not available 01/12/2021 In The Past Year Have You Or Any Of Your Family Members Been Unable To Get MEDICINE Or HEALTH CARE When It Was Really Needed? No [email or web address] Information not available 01/12/2021 In The Past Year Have You Or Any Of Your Family Members Been Unable To Get PHONE When It Was Really Needed? No [email or web address] Information not available 01/12/2021 In The Past Year Have You Or Any Of Your Family Members Been Unable To Get UTILITIES When It Was Really Needed? No [email or web address] Information n ot available 01/12/2021 Has Lack Of Transportation Kept You From Medical Appointments, Meetings, Work, Or From Getting Things Needed For Daily Living? No [email or web address] Information not available 01/12/2021 In The Past Year Have You Or Any Of Your Family Members Been Unable To Get OTHER NECESSITIES When It Was Really Needed? No [email or web address] Information not available 01/12/2021 How Often Do You See Or Talk To People That You Care About And Feel Close To? 3 To 5 Times A Week [email or web address] Information not available 01/12/2021 How Stressed Are You? Somewhat [email or web address] Information not available 01/12/2021 In The Past Year, Have You Spent More Than 2 Nights In A Row In A [facility]sp, Residential, [facility], Or Juvenile Correctional Facility? No Information not available 01/12/2021 Are You A Refugee? No [email or web address] Inform ation not available 01/12/2021 Do You Feel Physically And Emotionally Safe Where You Currently Live? Yes [email or web address] Information not available 01/12/2021 What Was The Date Of Your Most Recent Tobacco Screening? 07/15/2021 [email or web address] Information n ot available 07/15/2021 Sex: Male Functional Status Question Answer Note LastModified by Organization D etails LastModified Time Do you or have you ever used any other forms of tobacco or nicotine? No [email or web address] Information not available 01/05/2021 What is your occupation? N/A [email or web address] Information not available 01/05/2021 Mental Status None recorded. Family History Relationship Description Onset Age of this Age Resolved Age Notes LastModified by Organization Details LastModified Time Mother Family history of stroke [email or web address] Not available 01/05 13:51:17 Father History of emphysema [email or web address] Not available 01/05 13:51:37 Father Family history of stroke [email or web address] Not available 01/05 13:51:40 Notes:. Medical History Condition Response Diabetes Y High Cholesterol Y Hypertension Y Immunizations Vaccine Type Date Status Note Provider Nam e and Address Organization Details Recorded Time COVID-19, mRNA, LNP-S, PF, 100 mcg/0.5mL dose or 50 mcg/0.25mL dose 09/25/2020 completed Kerwin Anaya [facility] 04/10/2021 13:13:04 Influenza, high-dose, quadrivalent, PF 03/31/2021 completed Mylene Snell [facility] 07/15/2021 14:58:12 Past Encounters Encounter ID Performer Location Encounter Start Date Encounter Closed Date Diagnosis/Indication Diagnosis SNOMED-CT Code Diagnosis ICD10 Code Diagnosis IMO Codes Diagnosis Note [id number] Carmen Rick APRN [facility] [address] [place] [address] 01/05/2021 13:30:14 01/05/2021 14:52:38 Obesity 483803620 E66.9 Diet education 19262290 Z71.3 Urinary symptoms 9955644 08 R39.9 burning with urgency.Hx prostatect jose luis Abrasion o f skin of left ear 5758429101 4179610 S00.412A Avoid Q- Tips.Hx Insect Left ear s/p removal 3 weeks ago. Type 2 dom betes mellitus 38244346 E11.9 Reports glucose under control Dyslipidemia 177191393 E 78.5 Pt to bring in records from prev. PCP Essential hypertension 51836571 I10 BP: 129/68 Dribbling of urine 19727 000 N39.43 REfill requested. Urology referral placed Gastroesop hageal reflux disease without esophagitis 687739361 K21.9 STable Acute urin willis tract infection 054962407 N39.0 UA with 2+ LE's, protein and 1+ blood.Rx Bactrim. [id number] Carmen Rick, [facility] [address] [place] [address] 01/12/2021 09:41:48 01/12/2021 10:40:58 Obesity 515582305 E66.9 Diet education 03196152 Z71.3 Urinary symptoms 6671077 08 R39.9 burning with urgency.Hx prostatect omyUrology referral [email or web address] Completed course of abx after (+) UA.UA recheck today Abrasion o f skin of left ear 9773463885 1621218 S00.412A Avoid Q- Tips.Hx Insect Left ear s/p removal 3 weeks ago. 01/12: Left Ear improved - reports fullness . Cerumen has softened, still with dried blood to left ear canal partially obscuring the TM. Type 2 dom betes mellitus 00933818 E11.9 Reports glucose under controlPer medical records 10/15/20: HgbA1c 7.7. Onmetformi n 100mg po BID, Actos 45mg daily and Glipizide 10mg po BID. Dyslipidemia 621332750 E 78.5 Lipitor 20mg at HS Essential hypertension 13231612 I10 BP 126/76 Follow Low salt diet.On Lisinopril 40mg po daily , was on Amlodipine 10mg po daily?Dorothea y ASA 81mg Dribbling of urine 20356 000 N39.43 REfill requested. Urology referral placed Gastroesop hageal reflux disease without esophagitis 018858946 K21.9 STable Acute urin willis tract infection 838313870 N39.0 UA with 2+ LE's, protein and 1+ blood.Rx Bactrim. 01/12/21 improved recheck UA today Tobacco de pendence in remission 121342493 F17.201 Primary ma lignant neoplasm of prostate 80566057 C61 Dx in 1992, s/p prostatect j[place] in [place] 1992. Urologist Dr Jayna maldonado , last seen Apr 2020. Hx hypogonadi sm, neurogenic bladder and recurrent UTI.Last PSA 0.11 05/01/19 Neurogenic urinary bladder 277439775 N31.9 Last seen by urol 05/06. Impramine 10mg po BID and Oxybutnin 5mg at HS Pain of le ft shoulder joint [id number] 5095009 M25.512 mild joint arthritis per imaging 09/2017He declined PT previously . [id number] Carmen Rick APRN [facility] [address] [place] [address] 01/20/2021 13:34:36 01/20/2021 15:33:54 Obesity 107889700 E66.9 Diet education 64079143 Z71.3 Urinary symptoms 6959234 08 R39.9 burning with urgency.Hx prostatect omyUrology referral [id number] Completed course of abx after (+) UA.UA recheck today 01/20/21 UA with trace LE's. No blood. Referral approved to see Dr. Vazquez- pt to schedule appt. Abrasion o f skin of left ear [id number] 1071377 S00.412A Avoid Q- Tips.Hx Insect Left ear s/p removal 3 weeks ago. 01/12: Left Ear improved - reports fullness . Cerumen has softened, still with dried blood to left ear canal partially obscuring the TM. 01/20/21 Referral to ENT/ [facility] approved. Type 2 dom betes mellitus 31522870 E11.9 Reports glucose under controlPer medical records 10/15/20: HgbA1c 7.7. On metformin 100mg po BID, Actos 45mg daily and Glipizide 10mg po BID. 01/20/21 HgbA1c: 6.8. Cont with current med regimen. On metformin 100mg po BID, Actos 45mg daily and Glipizide 10mg po BID. Dyslipidemia 815571694 E 78.5 Lipitor 20mg at HS01/20/21 Tot chol. 143, Trig 153, LDL 76Cont with Lipitor 20mg at HS Essential hypertension 25148307 I10 BP 126/76 Follow Low salt diet.On Lisinopril 40mg po daily , was on Amlodipine 10mg po daily?Dorothea y ASA 81mg 01/20/21 Cont with current med regimen Dribbling of urine 75853 000 N39.43 REfill requested. Urology referral /0 01/05: To see Dr. Vazquez Gastrogavinop hageal reflux disease without esophagitis 480405873 K21.9 STable Acute urin willis tract infection 223697891 N39.0 UA with 2+ LE's, protein and 1+ blood.Rx Bactrim. 01/12/21 improved recheck UA today 01/20/21: UA with trace LE's, no Blood. Tobacco de pendence in remission 987987551 F17.201 Primary ma lignant neoplasm of prostate 72296091 C61 Dx in 1992, s/p prostatect [place] in [place] [address]. Urologist Dr Jayna maldonado , last seen Apr 2020. Hx hypogonadi sm, neurogenic bladder and recurrent UTI.Last PSA 0.11 05/01/19 Neurogenic urinary bladder 692363056 N31.9 Last seen by urol 05/06. Impramine 10mg po BID and Oxybutnin 5mg at HS Pain of le ft shoulder joint 1386825863 5474383 M25.512 mild joint arthritis per imaging 09/2017He declined PT previously . Hemoglobin below reference range 148984089 D64.9 Hgb 11.4, HCT 34.9. Normal MCV and MCH. Hx anemia of chronic diseasePt case entered for Fe Panel, Ferritin , & FIT Chronic constipation 236 660208 K59.09 Test resul t to patient by telephone 704802407 Z71.2 Labs reviewed [id number] Carmen Rick APRN [facility] [address] [place] [address] 04/10/2021 12:47:04 04/10/2021 13:55:11 Obesity 753567297 E66.9 Pt educated on importance of lifestyle modificati on which should include but not limited to an exercise regime and diet modificati on as discussed on visit. Diet education 02437457 Z71.3 Urinary symptoms 4966150 08 R39.9 burning with urgency.Hx prostatect omyUrology referral [id number] Completed course of abx after (+) UA.UA recheck today 01/20/21 UA with trace LE's. No blood. Referral approved to see Dr. Vazquez- pt to schedule appt. 04/10/21 Prostate f/u, pt reports he has frequency and blood coming from his rectum.-He needs GI/PCP for his constipati on and blood per rectum.[place] el regimen discussed as it can also be worsen his LUTS.Sampl e of myrbetriq given for his LUTSF/U: in 4 weeksPt reports improvemen t of LUTS Abrasion o f skin of left ear 6332016574 1656544 S00.412A Avoid Q- Tips.Hx Insect Left ear s/p removal 3 weeks ago. 01/12: Left Ear improved - reports fullness . Cerumen has softened, still with dried blood to left ear canal partially obscuring the TM. 01/20/21 Referral to ENT/ [facility] approved. 04/10/21 ENT f/u completed. FB removed. Type 2 dom betes mellitus 88623913 E11.9 Reports glucose under controlPer medical records 10/15/20: HgbA1c 7.7. On metformin 100mg po BID, Actos 45mg daily and Glipizide 10mg po BID. 01/20/21 HgbA1c: 6.8. Cont with current med regimen. On metformin 100mg po BID, Actos 45mg daily and Glipizide 10mg po BID. 04/10/21 c/w metformin 100mg po BID, Actos 45mg daily and Glipizide 10mg po BID. Dyslipidemia 260707546 E 78.5 Lipitor 20mg at HS01/20/21 Tot chol. 143, Trig 153, LDL 76Cont with Lipitor 20mg at HS Essential hypertension 89972486 I10 BP 126/76 Follow Low salt diet.On Lisinopril 40mg po daily , was on Amlodipine 10mg po daily?Dorothea y ASA 81mg 01/20/21 Cont with current med regimenBP amjieb24/2 11/05 stop amlodipine 10mg po daily ? 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 Urologist Dr Dorantes i , last seen Apr 2020. Hx hypogonadi sm, neurogenic bladder and recurrent UTI.Last PSA 0.11 05/01/1909 Urology appt completed for LUTS Neurogenic urinary bladder 977659386 N31.9 Last seen by urol 05/06. Impramine 10mg po BID and Oxybutnin 5mg at HS Pain of le ft shoulder joint 8209670164 9857385 M25.512 mild joint arthritis per imaging 09/2017He declined PT previously . Hemoglobin below reference range 550319063 D64.9 Hgb 11.4, HCT 34.9. Normal MCV and MCH. Hx anemia of chronic diseasePt case entered for Fe Panel, Ferritin , & FIT Chronic constipation 236 347610 K59.09 No improvemen t with Colace Hematochezia 252596489 K 92.1 CBC 01/12/21 with Hgb 11.4, Hct 34.9Pt reporting rectal bleeding to urologistG I referral provided to pt in person Memory impairment 498916 006 R41.3 MMSE 24Dtr reported concern with memory Bilateral knee pain 1187 564233 2893509 M25.561 M25.562 Pt refuses Ortho referral or steroids [id number] Carmen Rick APRN [facility] [address] [place] [address] 07/15/2021 14:34:11 07/15/2021 16:00:16 Obesity 613999143 E66.9 Pt educated on importance of lifestyle modificati on which should include but not limited to an exercise regime and diet modificati on as discussed on visit. Diet education 82501172 Z71.3 Urinary symptoms 5834813 08 R39.9 burning with urgency.Hx prostatect omyUrology referral [id number] Completed course of abx after (+) UA.UA recheck today 01/20/21 UA with trace LE's. No blood. Referral approved to see Dr. Vazquez- pt to schedule appt. 04/10/21 Prostate f/u, pt reports he has frequency and blood coming from his rectum.-He needs GI/PCP for his constipati on and blood per rectum.[place] el regimen discussed as it can also be worsen his LUTS.Sampl e of myrbetriq given for his LUTSF/U: in 4 weeksPt reports improvemen t of LUTS Type 2 dom betes mellitus 87716633 E11.9 Reports glucose under controlPer medical records [...] 07/15/21 Pt reports home glucose good Dyslipidemia 989757166 E 78.5 Lipitor 20mg at HS01/20/21 Tot chol. 143, Trig 153, LDL 76Cont with Lipitor 20mg at HS Essential hypertension 45687763 I10 BP 126/76 Follow Low salt diet.On Lisinopril 40mg po daily , was on Amlodipine 10mg po daily?Dorothea y ASA 81mg 01/20/21 Cont with current med regimenBP /2 11/05 stop amlodipine 10mg po daily ? pedal edema x 1 weekand Follow low salt diet Has been taking amlodipine 10mg, 1/2 tablet daily- less pedal edema . BP 124/81 Gastroesop hageal reflux disease without esophagitis 052908682 K21.9 STable Tobacco de pendence in remission 047285220 F17.201 Primary ma lignant neoplasm of prostate 46065675 C61 Dx in 1992, s/p prostatect [place] in [place] [address]. Urologist Dr Jayna maldonado , last seen Apr 2020. Hx hypogonadi sm, neurogenic bladder and recurrent UTI.Last PSA 0.11 05/01/1909 / Urology appt completed for LUTS Neurogenic urinary bladder 999844740 N31.9 Last seen by urol 05/06. Impramine 10mg po BID and Oxybutnin 5mg at HS Pain of le ft shoulder joint 8685778865 1892508 M25.512 mild joint arthritis per imaging 09/2017He declined PT previously . Hemoglobin below reference range 661830412 D64.9 Hgb 11.4, HCT 34.9. Normal MCV and MCH. Hx anemia of chronic diseasePt case entered for Fe Panel, Ferritin , & FIT Chronic constipation 236 207589 K59.09 No improvemen t with Colace Hematochezia 160850973 K 92.1 CBC 01/12/21 with Hgb 11.4, Hct 34.9Pt reporting rectal bleeding to urologistG I referral provided to pt in person 07/15/21 Pt has not made appt with GI - referral provided to pt in person Memory impairment 957109 006 R41.3 MMSE 24Dtr reported concern with memory Bilateral knee pain 1187 649619 4253973 M25.561 M25.562 Pt refuses Ortho referral or steroids Vaccine de clined by patient 9621129811 02 Z28.20 Pt declines shingles, Tdap vaccine Advance di rective discussed with patient 864031991 Z71.89 PT reports he has living will At [facility] risk for falls 678003106 Z91.81 Secondary immune deficiency disorder 92779650 D84.9 T2DM Health Concerns Section Related Observation LastModified by Organization Detai ls LastModified Time None Recorded Concern Status LastModified by Organization Details LastModified Time None Recorded Advance Directives Directive None Recorded Payers Insurance Date Sequence Insurance Name Policy Number Policy [place] Covered Member ID [place] Member ID Guarantor Name 08/21/2021 3 [place] Toni Cardenas [id number] Toni Cardenas Meehan 08/27/2022 2 [employer] - DOS PRIOR TO 2022 - DUAL ELIGIBLE (MEDICARE REPLACEMENT/AD VANTAGE - HMO) Toni Cardenas Meehan [id number] Toni Cardenas Meehan 05/14/2021 1 [place] Toni Cardenas [id number] Toni Cardenas Meehan 08/21/2021 [place] [facility] Toni Cardenas [id number] Toni Cardenas Meehan 04/10/2021 1 [employer] - DOS PRIOR TO 2022 - DUAL ELIGIBLE (MEDICARE REPLACEMENT/AD VANTAGE - HMO) Toni Cardenas Meehan [id number] Toni Cardenas Meehan 01/05/2021 1 *SELF PAY* Rubén Cardenas Meehan 08/27/2022 1 [facility] (MEDICAID REPLACEMENT - HMO) Toni Cardenas [id number] Toni Cardenas Meehan 01/26/2021 1 [place] Toni Cardenas [id number] Toni Cardenas Meehan Notes Date Note Type Note Provider Name and Address Organization Details Recorded Time 01/05/2021 text/html ROS as noted in the [facility] 85-year-old male New patient. Patient is here to establish care. Patient reports recent relocation from [place]. He is accompanied by his daughter lela [...] colonoscopy:Annual: Eye Exam: Carmen Rick APRN [address], [address] 01/05/2021 15:27:02 01/12/2021 text/html ROS as noted in the [facility] 85-year-old male New patient. Patient is here to establish care. Patient reports recent relocation from [place]. He is accompanied by his daughter lela [...] retinopathy Carmen Rick APRN [address] [place], [address], [facility], [facility]. 01/12/2021 13:20:14 01/20/2021 text/html ROS as noted in the [facility] 85-year-old male New patient. Patient is here to establish care. Patient reports recent relocation from [place]. He is accompanied by his daughter lela at today's visit. Patient is reporting left ear pain for the past 3 weeks. Patient shares a had insect removed from ear at [facility]. Continues to have pain [...] retinopathy Carmen Rick APRN [address] [place], [address], [facility] 01/20/2021 14:35:26 04/10/2021 text/html ROS as noted in the [facility] 85-year-old male New patient. Patient is here to establish care. Patient reports recent relocation from [place]. He is accompanied by his daughter lela at today's visit. Patient is reporting left ear pain for the past 3 weeks. Patient shares a had insect removed from ear at [facility]. Continues to have pain [...] initiatedAnnual:Eye Exam: 03/25/20 - no retinopathy Carmen Rick, [facility] [address] [place], [address], [facility] - [facility]. 04/13/2021 08:48:16 07/15/2021 text/html ROS as noted in the [facility] 85-year-old male New patient. Patient is here to establish care. Patient reports recent relocation from [place]. He is accompanied by his daughter lela [...] shares that he may be returning to [facility]. colonoscopy: GI referral initiatedAnnual:Eye Exam: 03/25/20 - no retinopathy Carmen Rick APRN [address] [place], [address], [facility] - [facility]. 07/16/2021 07:57:05
--- OUTSIDE RECORDS SUMMARY | 2025-06-19 14:58 | XMS_ITS | Encounter Summary ---
Author Organization [employer] Address [address] [facility] [address] [place] [address] Care Team Providers Care Chicken Stuffer Name Role Phone Jolly London MD Primary Care Provider [phone] Javier Benton PharmD Unavailable [phone] Encounter Details Date Type Department Care Team (Late st Contact Info) Description 02/28/2023 Orders Only [facility] [address] [place] [address] [phone] Jolly London MD [address] [place] [address] [phone] Anemia of chronic disorder (Primary Dx); Hyperkalemia [...] Description 06/24/2025 1:00 PM EST Medication Management [facility] [address] [place] [phone] Javier Benton, PharmD [address] [place], [place] [phone] 07/09/2025 3:30 PM EST Office Visit [facility] [address] [place] [address] [place] [address] Scheduled Orders Name Type Priority Associated Diagnoses Orde r Schedule Basic Metabolic Panel Lab Routine Hyperkalemia Expected: 02/28/2023 (Approximate), Expires: 02/29/2024 documented as of this encounter Goals Goal Patient Goal Type Associated Problems Recent Progress Patient-Stated? Author Blood Pressure < 140/90 Blood Pressure 140/60( 025 9:43 AM EST) No Javier Benton, AreliD documented as of this encounter Visit Diagnoses Diagnosis Anemia of chronic disorder- Primary Anemia of other chronic disease Hyperkalemia Hyperpotassemia documented in this encounter Additional Health Concerns Assessment Noted Time PHQ-9 Depression Total Score: 0 02/15/20 1:30 PM EDT documented as of this encounter Care Teams Chicken Stuffer Relationship Specialty Start Date End [place] [address] PCP - General Family Medicine 06/29/12 Javier Benton, PharmD [address] [place] [address] Pharmacist Internal Medicine 01/14/23 [facility] 04/21/25 documented as of this encounter
--- OUTSIDE RECORDS SUMMARY | 2025-06-19 14:58 | XMS_ITS | Encounter Summary ---
Author Organization [employer] Address [address] [facility] [address] [place] [address] Care Team Providers Care Solution Mixer Name Role Phone Jolly London MD Primary Care Provider [phone] Javier Benton PharmD Unavailable [phone] Reason for Referral * Consultation (Urgent) - Closed Specialty Diagnoses / Procedures Referred By Contac t Referred To Contact Diagnoses Sensorineural hearing loss, bilateral Dizziness Jolly London MD [address] [place] [address] Phone: tel: fax: Fred Mann [address] [place] [address] Drive [address] [place], [place] [address] Phone: tel: fax: Referral ID Status Reason Start Date Expiration Date V isits Requested Visits Authorized [id number] Closed Specialty Services Required 10/10/2024 10/10/2025 1 1 Encounter Details Date Type Department Care Team (Late st Contact Info) Description 10/10/2024 Orders Only [facility] [address] [place], [place] [phone] Jolly London MD [address] [place], [place] [phone] Sensorineural hearing loss, bilateral (Primary Dx); Dizziness [...] Description 06/24/2025 1:00 PM EST Medication Management [facility] [address] [place] [phone] Javier Benton, PharmD [address] [place] [phone] 07/09/2025 3:30 PM EST Office Visit [facility] [address] [place] [phone] Jolly London MD [address] [place] [phone] Scheduled Referrals Name Type Priority Associated Diagnoses [...] documented as of this encounter Care Teams Solution Mixer Relationship Specialty Start Date End Date Jolly London MD [address] [place] [address] PCP - General Family Medicine 06/29/12 Javier Benton, PharmD [address] [place] [address] Pharmacist Internal Medicine 01/14/23 [facility] 04/21/25 documented as of this encounter
--- OUTSIDE RECORDS SUMMARY | 2025-06-19 14:58 | XMS_ITS | Data Portability ---
Author Organization [facility] [facility], Main Office Address [address] [facility] [place] [address] Care Team Providers Care Ruby On Rails Engineer Name Role Phone QUENTIN MORGAN - 2ND FLOOR OTHER Assessment Encounter Date Assessment Date Assessment LastModified by Organization Details LastModified Time 02/28/2024 02/28/2024 I have seen and examined the patient independently and confirmed the findings above with the GAME FARM SUPERVISOR student note. Management plan discussed with the GAME FARM SUPERVISOR student personally. [email or web address] Not available 02/28/2024 14:09:16 03/01/2024 03/01/2024 45 mins. spent on coordination of discharge [email or web address] Not available 03/01/2024 15:25:32 Plan of Treatment [...] and Address Organization Details Recorded Time Asthenia 07407793 Active 2023 KHALIDA NESBITT NP [address] [facility], [address], [place], [address], [employer] 4 10:39:59 Acute nontraumati c kidney injury 7189453653802 03 Active 2023 KHALIDA NESBITT NP [address], [address], [place], [address], [facility] [employer] 4 10:40:05 Urinary tract infectious disease 13975451 Active 2023 KHALIDA NESBITT NP [address] [facility], [address], [place], [address], [facility] 4 10:40:12 Hypomagnese kaitlin 223161518 Active 2023 KHALIDA NESBITT NP [address] [facility], [address], [place], [address], [facility] [employer] [facility] 4 10:40:29 Malignant neoplasm of prostate 306676795 Active 2023 XRT KHALIDA NESBITT NP [address] [facility], [address], [place], [address], [facility] 4 10:41:04 Type 2 diabetes mellitus without complicatio n 950057151 Active 2023 KHALIDA NESBITT NP [address] [facility], [address], [place], [address], [facility] 4 10:42:06 Hypertensiv e disorder 14522689 Active 2023 KHALIDA NESBITT NP [address] [facility], [address], [place], [address], [facility] 4 10:42:13 Hyperlipide [facility] 99636008 Active 2023 KHALIDA NESBITT NP [address] [facility], [address], [place], [address], [facility] 4 10:42:18 Anemia 434096309 Active 2023 KHALIDA NESBITT NP [address] [facility], [address], [place], [address], [facility] 4 10:43:45 Problem Notes None recorded. Medical Equipment None Reported. Allergies Allergen ID Allergen Name Allergen Category Reaction Reaction Severity Criticality Documentation Date Start Date Code Code System Note Provider Name and Address Organization Details Recorded Time 27837 Keflex medicatio n Not available Not available Not available 02/22/2024 37165 7 RxNorm const ipati on KHALIDA NESBITT NP [address] [facility], [address], [place], [address], [facility] 4 10:22:19 75085 oxycodone medicatio n Not available Not available Not available 02/22/2024 7804 RxNorm vomit ing, shima chaudhry KHALIDA NESBITT NP [address] [facility], [address], [place], [address], [facility] 4 10:22:37 43792 acetamino phen / oxycodone medicatio n Not available Not available Not available 02/22/2024 04543 3 RxNorm nause a, shima chaudhry KHALIDA NESBITT NP [address] [facility], [address], [place], [address], [facility] 4 10:22:55 Medications Not known to be on any medication Vitals Date Recorded Heart rate Respiratory rate Body temperature Systolic And Diastolic Provider Name and Address Organization Details Last Updated DateTime 02/22/2024 110 /min 20 /min 97.9 [degF] 98/62 mm[Hg] KHALIDA NESBITT NP [address] [facility], [address], [place], [address], [facility] 4 10:19:22 Date Recorded Heart rate Respiratory rate Body temperature Oxygen saturation Systolic And Diastolic Provider Name and Address Organization Details Last Updated DateTime 4 109 /min 18 /min 98.1 [degF] 97 % 110/60 mm[Hg] KHALIDA NESBITT NP [address] [facility], [address], [place], [address], [facility] 4 10:16:09 Date Recorded Systolic And Diastolic Provider Name and Address Organization Details Last Updated DateTime 02/25/2024 110/73 mm[Hg] Mayo Gomez MD [address] [facility], [address], [place], [address], [facility] 02/25/2024 16:04:57 Date Recorded Body height Body mass index (BMI) Body weight Respiratory rate Body temperature Oxygen saturation Systolic And Diastolic Provider Name and Address Organization Details Last Updated DateTime 4 157.48 cm 27.9 kg/m2 92967.8 4 g 18 /min 98.2 [degF] 96 % 150/81 mm[Hg] Mylene abrams [facility] 4 12:52:27 Date Recorded Body height Heart rate Respiratory rate Body temperature Oxygen saturation Systolic And Diastolic Provider Name and Address Organization Details Last Updated DateTime 157.48 cm 96 /min 18 /min 97.8 [degF] 95 % 132/68 mm[Hg] KHALIDA NESBITT NP [address] [facility], [address], [place], [address], [facility] 4 14:50:13 Social History Question Answer Notes LastModified by [employer] Details LastModified Time Tobacco Smoking Status Former Smoker quit over 10 yrs ago KHALIDA NESBITT NP [address] [facility], [address], [place], [address], [facility] 02/22/2024 11:06:58 What Is Your Code Status? Full Code [email or web address] Information not available 02/22/2024 Where Do You Live? Apartment Elevator, No Stairs. 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 Yes Has HCP [email or web address] Information not available 02/22/2024 What Was The Date Of Your Most Recent Tobacco Screening? 02/22/2024 [email or web address] Information not available 02/22/2024 Do You Have An Out Of Hospital DNR? No [email or web address] Information not available 02/22/2024 Have You Ever Been Counseled For Unhealthy Alcohol Use? No [email or web address] Information not available 02/22/2024 How Much Tobacco Do You Smoke? No Information not available 02/22/2024 Has Tobacco Cessation Counseling Been Provided? No [email or web address] Information not available 02/22/2024 Sex: Unknown Functional Status Question Answer Note LastModified by [employer] Details LastModified Time Do you use any illicit or recreational drugs? No [email or web address] Information not available 02/22/2024 Do you or have you ever used any other forms of tobacco or nicotine? No [email or web address] Information not available 02/22/2024 What is your level of alcohol consumption? Occasional Social [email or web address] Information not available 02/22/2024 Mental Status None recorded. Family History Nothing Reported Notes:N/A Medical History No medical history recorded. Past Encounters Encounter ID Performer Location Encounter Start Date Encounter Closed Date Diagnosis/Indication Diagnosis SNOMED-CT Code Diagnosis ICD10 Code Diagnosis IMO Codes Diagnosis Note [id number] KHALIDA NESBITT NP [facility] [address] [address] 02/22/2024 10:17:35 02/28/2024 14:23:59 Asthenia 73942827 R53.1 PT OT eval and tx. for reconditio klaudia, balance, strength, and gait trainingGo al is to return home. Hypomagnesemia 574156671 E83.42 Severe, <0.6 upon admit to hosp.Impro matias with supplement s and d/c of PPI.Discha rged on MagOx 800 mg tidPlan -Mg level q tuesday x 3Adjust dose prn Urinary tr act infectious disease 56502210 N39.0 ESBL E. ColiSeen by ID - now on ertapenem 1 gm IV qd x 10 days, last dose 813Contin ue phenazopyr idine 100 mg tid prnAdd probiotic 1 bid x 10 daysMonito r VS, lans, s/s infection. Maintain hydrationS till with moderate sx. but better than prior Acute nont raumatic kidney injury 2211135629 51122 N17.9 Improved with fluids and d/c of OTIS IMaintain fluidsMoni tor labs Type 2 lokesh betes mellitus without complication 943739192 E11.9 Continue metformin ER 750 mg bid, pioglitazo ne 45 mg qdCarb control dietPt. requesting BS TID AC, will orderMonit or Hypertensive disorder 38 531901 I10 Currently on norvasc 5 mg qdLisinopr il 40 mg qd stopped in hosp. due to AKIMonitor VS, labs, need to adjust meds/ Hyperlipidemia 22762633 E78.5 Continue atorvastat in 20 mg qdLabs prn Anemia 562399373 D64.9 Continue home meds:Fe SO4 325 mg qdVit C 500 mg qdB 12 1000 mcg qd Malignant neoplasm of prostate 741328083 C61 myrbetriq 50 mg qd Aspirin th erapy finding 558448172 Z79.82 unsure why he is currently takingwill continue ASA 81 mg qd for now [id number] KHALIDA NESBITT NP [facility] [address] [place] [address] 02/23/2024 10:13:03 02/28/2024 15:24:45 Asthenia 19347386 R53.1 PT OT eval and tx. for reconditio klaudia, balance, strength, and gait trainingGo al is to return home. Hypomagnesemia 732112482 E83.42 Severe, <0.6 upon admit to hosp.Impro matias with supplement s and d/c of PPI.Discha rged on MagOx 800 mg tidCurrent Mg level 02/21 = 1.9Plan -Mg level q tuesday x 3Adjust dose prn Urinary tr act infectious disease 35149116 N39.0 ESBL E. ColiSeen by ID - [...] than prior Acute nont raumatic kidney injury 4703773433 63651 N17.9 Improved with fluids and d/c of OTIS ICMP yesterday with K of 5.4Maintai n fluidsMoni tor labs - BMP q . x 3 Type 2 lokesh betes mellitus without complication 453665610 E11.9 Continue metformin ER 750 mg bid, pioglitazo ne 45 mg qdCarb control dietBS TID AC per pt. requestMon itor Hypertensive disorder 38 276925 I10 So far in good controlCur rently on norvasc 5 mg qd - continueLi sinopril 40 mg qd stopped in hosp. due to AKIMonitor VS, labs, need to adjust meds Hyperlipidemia 81416423 E78.5 Continue atorvastat in 20 mg qdLabs prn Anemia 562027153 D64.9 Continue home meds:Fe SO4 325 mg qdVit C 500 mg qdB 12 1000 mcg qd Malignant neoplasm of prostate 070472014 C61 myrbetriq 50 mg qd Aspirin th erapy finding 398919803 Z79.82 unsure why he is currently takingwill continue ASA 81 mg qd for now Tachycardia 5904714 R00. 0 HR running in low 100s here, regular rateAsympt omatic.Uns ure of baseline Plan -continue to monitor closelymai ntain po fluidstrea t infectiont rend labsconsid er metoprolol in place of norvasc to help reduce HR [id number] Mayo Gomez MD [address] [address] 02/25/2024 16:04:10 02/28/2024 15:54:08 Asthenia 26842868 R53.1 PT OT eval and treatmonit or fall risk and need for increased support in community Hypomagnesemia 612244338 E83.42 repleted in hospital now onMg supplement monitor lytes and need to titrate Urinary tr act infectious disease 70913546 N39.0 see HPIeval by ID and to complete course of ertapenema dd probioticm onitor for recurrent diseaseif dysuria continues repeat UA Acute nont raumatic kidney injury 2949482152 57266 N17.8 OTIS-I d/c'edmoni tor renal functionav oid nephrotoxi c meds as ablenephro consult prn Type 2 lokesh betes mellitus without complication 366763210 E11.9 metformin 750 mg bidpioglit azone 45 mg qdmonitor blood glucose prn and need to adjust medication Hypertensive disorder 38 758854 I10 OTIS-I d/c'edmain tained onnorvasc 5 mg qdmonitor bp and need to titrate Hyperlipidemia 83591323 E78.2 lipitor 20 mg qdcontinue d Anemia 352386228 D50.8 question anemia of chronic diseasemon itor cbciron studies prn Malignant neoplasm of prostate 498444179 C61 carrying dx added to PMHmaintai toney on myrbetriq 50 mg qdcontinue d Aspirin th erapy finding 320273241 Z79.82 unsure why he is currently takingwill continue ASA 81 mg qd for now [id number] KHALIDA NESBITT NP [facility] [address] 02/28/2024 12:37:20 02/29/2024 13:01:36 Urinary tract infectious disease 19158957 N39.0 Burning, dysuria finally improving; now minimal.LD IV ABT ertapenem today, consuelo. well.Curre ntly on: Myrbetriq 50 mg dailyCompl eted 3 days of sched. Phenazopyr idine 100 mg every 8 hours, prn order remains in place.Megan tor symptoms closely Acute nont raumatic kidney injury 1172449873 46845 N17.8 Remains off OTIS-inhibi torsavoid nephrotoxi c meds as ablemonito r renal functionne phro consult prn Hypomagnesemia 272608682 E83.42 Mg level on 02/27/24 2.6Reduce Mag Ox to 800 mg bidContinu e to monitor labs and need to titrate Asthenia 66072901 R53.1 DUMAS-low fall risk 02/22/24Cont inue PT OT, goal is to return homemonito r fall risk and need for increased support in community Type 2 lokesh betes mellitus without complication 118250028 E11.9 In good controlCon tinue:metf ormin 750 mg bidpioglit azone 45 mg qdmonitor blood glucose TID per pt request Hypertensive disorder 38 441467 I10 Remains off OTIS inhibitors managed with norvasc 5 mg qdContinue to monitor bp and need to titrate Anemia 673770455 D50.8 H+H stableAsym tptomaticF eSo4 325 mg dailyConti nue to monitor cbc Hyperlipidemia 55016696 E78.2 Continue lipitor 20 mg qdMonitor labs Malignant neoplasm of prostate 030964441 C61 carrying dx, PMHContinu e myrbetriq 50 mg qdMonitor sx Aspirin th erapy finding 206119115 Z79.82 unknown reason for takingCont inue ASA 81 mg qd for now Hyperkalemia 20659182 E8 7.5 02/27/24 K 5.8Not on OTIS I, ARBwas given Sodium Polystyren e Sulfonate Suspension 15 GM X 1Asymptoma ticMonitor Labs as outpt. [id number] KHALIDA NESBITT NP [address] [address] 03/01/2024 14:48:03 03/05/2024 15:25:14 Urinary tract infectious disease 39814473 N39.0 Burning, dysuria finally resolved.C ompleted IV ertapenem, consuelo. well.VSSLa bs stable Monitor symptoms closely as outpt. Hyperkalemia 77034173 E8 7.5 02/27/24 K 5.8, repeat 02/28 5.2Not on OTIS I, ARBEncoura ge fluidsMoni tor Labs as outpt. Acute nont raumatic kidney injury 7053549596 17562 N17.8 Remains off OTIS-inhibi torsavoid nephrotoxi c meds as ablemonito r renal function - still with mild elevation in Creat - 1.49 on 02/28Encour age po fluidsMoni tor as outpt. Hypomagnesemia 541725739 E83.42 Mg level on 02/27/24 2.6Reduced Mag Ox from 800 mg tid to 800 mg bidContinu e to monitor labs and need to titrate as outpt. Asthenia 93206327 R53.1 DUMAS-low fall risk 02/22/24Cont inue PT OT, meeting goals, home tomorrow with meds and services.m onitor fall risk and need for increased support in community Type 2 lokesh betes mellitus without complication 480531485 E11.9 In good control, 100s.Danisha nue:metfor min 750 mg bidpioglit azone 45 mg qdmonitor blood glucose TID per pt request Hypertensive disorder 38 380583 I10 Remains off OTIS inhibitors managed with norvasc 5 mg qdContinue to monitor bp and need to titrate Anemia 452023697 D50.8 H+H stableAsym tptomaticF eSo4 325 mg dailyStool s reported as dark, ? from oral Fe - monitorCon tinue to monitor cbc Hyperlipidemia 64191209 E78.2 Continue lipitor 20 mg qdMonitor labs Malignant neoplasm of prostate 720251722 C61 carrying dx, PMHContinu e myrbetriq 50 mg qdMonitor sx Aspirin th erapy finding 464733668 Z79.82 unknown reason for takingCont inue ASA 81 mg qd for now Health Concerns Section Related Observation LastModified by Organization Detai ls LastModified Time None Recorded Concern Status LastModified by Organization Details LastModified Time None Recorded Advance Directives Directive None Recorded Payers Insurance Date Sequence Insurance Name Policy Number Policy [place] Covered Member ID Cordova Member ID Guarantor Name 03/05/2024 1 [facility] - DOS ON OR AFTER 2022 - MEDICARE ADVANTAGE [place] (MEDICARE REPLACEMENT/AD VANTAGE - PPO) Toni Meehan [id number] oTni Meehan Notes Date Note Type Note Provider Name and Address Organization Details Recorded Time 02/22/2024 text/html Toni is seen today for admission. He is an 88 yo male, admitted to [facility] 02/21/24 from [facility] for continued care and rehab after a brief hosp. due to low Mg., UTI, RONEY. He presented to [facility] 02/16 with weakness x 1 wk. and [...] NAD, appears much younger than stated age. 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 [...] CA s/p XRT, DM2, anemiaFull code KHALIDA NESBITT NP [address] [facility], [address], [place], [address], [facility] 02/22/2024 11:37:32 02/23/2024 text/html Toni is seen today for an acute visit. He is an 88 yo male, admitted to [facility] 02/21/24 from [facility] for continued care and rehab after a brief hosp. due to low Mg., UTI, RONEY. He presented to [facility] 02/16 with weakness x 1 wk. and [...] CA s/p XRT, DM2, anemiaFull code KHALIDA NESBITT NP [address] [facility], [address], [place], [address], [facility] [facility] 02/23/2024 10:37:44 02/25/2024 text/html Patient is an 88 yo male admit from hospital after presenting with weakness, dysuria and flank pain. Noted low Mg, in ARF. Dx with UTI. PPI was held and started on Mg supplement. Eval by ID and started on ertapenem. 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 He is an 88 year old male who was admitted here on 02/21/24 after hospital visit for UTI and low Mg level. Requiring continued care and rehab due to IV antibiotics and deconditioning. Toni presented to [facility] on 02/16 with weakness, dysuria, and left [...] Upon exam, Toni is feeling much better. 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 Minimal dysuria. Worried that he didn't pee yet today, but was able to pass urine this afternoon. Asked if he was drinking enough, and he wasn't sure. No other complaints. Moving bowels. DUMAS: low fall risk PMH: HTN, HLD, prostate CA s/p XRT, DM2, anemiaMOLST: Full code KHALIDA NESBITT NP [address] [facility], [address], [place], [address], [facility] [employer] [facility] 02/28/2024 16:12:08 03/01/2024 text/html ROS as noted in the HPI Toni is seen today for discharge. He is an 88 year old male who was admitted to [facility] on 02/21/24 after a hospital visit for UTI and low Mg level. He required continued care and rehab due to IV antibiotics and deconditioning. Toni presented to [facility] on 02/16 with weakness, dysuria, and left [...] Upon exam, Toni is feeling much better. 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 No further dysuria. Denies feeling weak or dizzy. No SOB, cough, CP. No GI upset, taking po. Reports passing some dark BM, but no BRB. Happy to be returning home. DUMAS: low fall riskPMH: HTN, HLD, prostate CA s/p XRT, DM2, anemiaMOLST: Full code KHALIDA NESBITT NP [address] [facility], [address], [place], [address], [facility] [employer] 03/01/2024 15:25:48
--- OUTSIDE RECORDS SUMMARY | 2025-06-19 14:59 | XMS_ITS | Encounter Summary ---
Author Organization [facility] Address [address] [facility] [address] [place] [address] Care Team Providers Care Senior Sql Server Database Developer Name Role Phone Jolly London MD Primary Care Provider [phone] Javier Benton PharmD Unavailable [phone] Encounter Details Date Type Department Care Team ([facility] st Contact Info) Description 05/28/2025 Orders Only [facility] MEDICINE [address] [place], [place] [phone] Jolly London MD [address] [place], [place] [phone] Primary hypertension (Primary Dx) Social History Tobacco Use Types [...] Description 06/24/2025 1:00 PM EST Medication Management [address] [address] Javier Benton, PharmD [address] [place] [address] 07/09/2025 3:30 PM EST Office Visit [address] [address] Jolly London MD [address] [place] [address] Scheduled Orders Name Type Priority Associated Diagnoses Orde r Schedule Basic Metabolic Panel Lab Routine Primary hypertension Expected: 05/28/2025 (Approximate), Expires: 05/28/2026 documented as of this encounter Goals Goal Patient Goal Type Associated Problems Recent Progress Patient-Stated? Author Blood Pressure < 140/90 Blood Pressure 140/60( 025 9:43 AM EST) No Javier Benton, PharmD documented as of this encounter Visit Diagnoses Diagnosis Primary hypertension- Primary Unspecified essential hypertension documented in this encounter Additional Health Concerns Assessment Noted Time PHQ-9 Depression Total Score: 1 08/13/19 25 3:11 PM EST documented as of this encounter Care Teams Senior Sql Server Database Developer Relationship Specialty Start Date End Date Jolly London MD [address] [place] [address] PCP - General Family Medicine 06/29/12 Javier Benton, AreliD [address] [place] [address] Pharmacist Internal Medicine 01/14/23 [facility] 04/21/25 documented as of this encounter
--- OUTSIDE RECORDS SUMMARY | 2025-06-19 14:59 | XMS_ITS | Clinical Summary ---
Author Organization [employer] Address [address] [place] [address] [address] [place] [address] Care Team Providers Care Cabinet Installer Name Role Phone Jolly Constantino MD Primary Care Provider [phone] Javier Benton PharmD Unavailable [phone] Allergies Active Allergy Reactions Criticality Noted Date [...] 11 4 Active amLODIPine (Norvasc) 5 MG tabletIndication s:Primary hypertension TAKE 1 TABLET BY MOUTH EVERY MORNING 90 tablet 3 5 Active cyanocobalamin (Vitamin B-12) 1000 MCG tablet TAKE 1 TABLET BY MOUTH AT BEDTIME 90 tablet 3 5 Active Alcohol Swabs (Alcohol Prep) 70 % padsIndications: Type 2 diabetes mellitus with hyperglycemia, without long-term current use of insulin (HCC) USE TO CHECK BLOOD SUGAR DIRECTED 100 each 5 5 Active furosemide (Lasix) 20 MG tablet Take 1 tablet (20 mg) by mouth Once per day. 90 tablet 3 5 10/11/19 26 Active Ascorbic Acid (vitamin C) 500 MG tablet TAKE 1 TABLET BY MOUTH AT BEDTIME 90 tablet 3 5 Active Aspirin Low Dose 81 MG EC tablet TAKE 1 TABLET BY MOUTH EVERY MORNING 90 tablet 3 5 Active Ferrous Sulfate (iron) 325 (65 Fe) MG tablet TAKE 1 TABLET BY MOUTH TWICE DAILY IN THE MORNING AND AT BEDTIME 180 tablet 5 Active magnesium oxide (Mag-Ox) 400 MG tablet TAKE 1 TABLET BY MOUTH EVERYDAY AT NOON 90 tablet 5 Active lidocaine (Lidoderm) 5 % patchIndications :Right buttock pain Apply 1 patch topically Once per day. Remove & discard patch within 12 hours or as directed by . 30 patch 5 Active Diclofenac Sodium 1 % gel Apply to affected area once or twice daily as needed for pain 150 g 5 Active acetaminophen (Tylenol Extra Strength) 500 MG tablet Take one or two tablets by mouth every 8 hours as needed for pain or fever. Maximum 6 tablets per day. 90 tablet 1 5 Active FREESTYLE LITE test stripIndications :Type 2 diabetes mellitus with hyperglycemia, without long-term current use of insulin (HCC) USE DIRECTED TO TEST BLOOD SUGAR THREE TIMES DAILY 100 strip 5 5 Active atorvastatin (Lipitor) 40 MG tabletIndication s:Dyslipidemia Take 1 tablet (40 mg) by mouth at bedtime. 90 tablet 3 5 Active SITagliptin-metF ORMIN (Janumet) 50-1000 MG tablet Take 1 tablet by mouth with breakfast and with evening meal. 60 tablet 11 05/29/2025 12:31 PM EST 05/28/20 26 Active metFORMIN XR (Glucophage-XR) 750 MG 24 hr tablet TAKE 1 TABLET BY MOUTH TWICE DAILY AT NOON AND IN THE EVENING WITH MEALS. DO NOT BREAK, CRUSH, DISSOLVE OR CHEW 180 tablet 3 5 05/28/20 25 Discontin ued(Alter carl therapy) pioglitazone (Actos) 45 MG tablet TAKE 1 TABLET BY MOUTH EVERY EVENING 90 tablet 3 5 05/28/20 25 Discontin ued(Side effects) Active Problems Problem Noted Date Diagnosed Date Bilateral lower extremity edema 05/28/2025 Assessment & Plan (05/28/2025 10:29 AM EST): - on amlodipine 5 mg daily (will consider changing to another antihypertensives, although we don't have many options left) - continue leg elevation - low sodium diet - continue furosemide - advised to wear compression stocking. Patient was unable to get his compression stocking because he got lost when he was on the way to [place]. Patient states he prefers it to be delivered to [facility]. Will ask patient's caretaker if he can get a ride to DME supplier to worm picker the stocking - negative DVT in Apr 2025 - evaluate with venous study for venous insufficiency - refer to vascular specialist Fracture of removable partial denture 12/06/2024 Tinnitus of both ears 11/19/2024 Assessment & Plan (05/28/2025 10:06 AM EST): - likely Meniere's disease - symptoms improved with furosemide Assessment & Plan (11/19/2024 3:49 PM EDT): [...] (03/04/2025 8:41 AM EDT): - Seen in [facility] ED on 09/17/24, questionable - patient claims that he did not have vision problem. However, he is high-risk for CVA / TIA - continue ASA - continue optimizing chronic disease management - continue working on lifestyle modificaitons Assessment & Plan (11/19/2024 4:11 PM EDT): - Seen in [facility] ED on 09/17/24, questionable - patient claims that he did not have vision problem. However, he is high-risk for CVA / TIA - continue ASA - continue optimizing chronic disease management - continue working on lifestyle modificaitons Assessment & Plan (09/28/2024 9:47 AM EDT): - Seen in [facility] ED on 09/17/24, questionable - patient claims that he did not have vision problem. However, he is high-risk for CVA / TIA - continue ASA - continue optimizing chronic disease management - continue working on lifestyle modificaitons Excessive attrition of teeth, 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 09/05/2024 Partial edentulism 09/05/2024 Obesity 02/21/2023 Recurrent UTI 11/09/2022 Assessment & Plan (05/28/2025 10:09 AM EST): -Most recent in Feb 2024, E. Coli ESBL. Resistant to amp, cephalosporin, levofloxacin, and gentamicin, sensitive to ertapenem, nitrofurantoin, and TMP/SMX. Treated with Ertapenem IV for 10 days. -10/2022, E. Coli resistant to TMP/SMZ and fluoroquinolone. Initially Tx with Keflex but pt developed abd pain, switched to Cefuroxime -Follow up with urologist as scheduled Assessment & Plan (03/01/2025 11:06 PM EDT): [...] 08/16/2023 At risk for falls 07/16/2021 08/16/2023 Assessment & Plan (05/28/2025 10:06 AM EST): - Reviewed fall precaution / living arrangement - Encouraged to continue remaining physically active Memory impairment 04/13/2021 08/16/2023 Sensorineural hearing loss, bilateral 06/26/2015 History of hemorrhoids 06/26/2015 Anemia of chronic disease 11/13/2012 Assessment & Plan (05/27/2025 4:52 AM EST): - Normocytic anemia. Elevated ferritin level. - Seen by mobile product manager in July 2023 - monitor - Continue current iron supplementation Assessment & Plan (11/19/2024 4:09 PM EDT): - Normocytic anemia. Elevated ferritin level. - Seen by mobile product manager in July 2023 - monitor - Continue current iron supplementation Assessment & Plan (08/13/2024 3:53 PM EST): - Normocytic anemia. Elevated ferritin level. - Seen by mobile product manager in July 2023 - monitor - Continue current iron supplementation Assessment & Plan (04/26/2024 10:33 AM EDT): - Normocytic anemia. Elevated ferritin level. - Seen by mobile product manager in July 2023 - monitor - Continue current iron supplementation Assessment & Plan (03/07/2024 3:45 PM EDT): - Normocytic anemia. Elevated ferritin level. - Seen by mobile product manager in July 2023 - monitor - Continue current iron supplementation Assessment & Plan (01/25/2024 5:10 PM EDT): - Normocytic anemia. Elevated ferritin level. - Seen by mobile product manager in July 2023 - monitor - Continue current iron supplementation Assessment & Plan (10/18/2023 1:00 PM EDT): - Normocytic anemia. Elevated ferritin level. - Seen by mobile product manager in July 2023 - monitor - Continue current iron supplementation Assessment & Plan (06/22/2023 5:49 AM EST): - Normocytic anemia. Elevated ferritin. - Seen by mobile product manager on 05/13/23 - monitor - Continue current [...] mellitus, type 2 11/13/2012 Assessment & Plan (05/28/2025 11:53 AM EST): - A1c 7.7% on 05/27/2025 - A1c 7.7% on 02/25/25 -Continue working on lifestyle modifications -Continue metformin ER 750 mg bid. Consider further increase. -Currently on pioglitazone 45 mg daily. Consider switching to other agent after maximizing metformin. - Due to his edema, will decrease stop pioglitazone and start metformin - sitagliptin combo to decrease his pill-burden. - Relative contraindication to SGLT2i due to recurrent UTI / OAB -Treatment Hx: glipizide was discontinued due to hypoglycemia and metformin has not been maximized. -Last eye exam: November 2023 -Last foot exam: 05/27/2025 -Last microalbumin test: 02/27/2025 UACR 9.4 -Last lipid profile: 09/17/24 Total cholesterol 113; Triglyceride 120; HDL 42; LDL 47 -Last dental exam: Assessment & Plan (03/01/2025 11:06 PM EDT): [...] 3 months Dyslipidemia 11/13/2012 Assessment & Plan (05/28/2025 10:05 AM EST): -Current medication: atorvastatin 40 mg at bedtime -Last lipid profile: 09/17/2024 -Continue current medication and lifestyle modification effort Assessment & Plan (11/19/2024 4:09 PM EDT): [...] effort Neurogenic bladder 11/13/2012 Assessment & Plan (05/28/2025 10:25 AM EST): - Following with Urologist, [facility], last seen in November 2024 -Discontinued Imipramine. -Continue mirabegron -Recently given a sample of Gemtesa -Treatment Hx: Previously on oxybutynin 5 mg which was changed to mirabegron when he went to [place] and was seen by an urologist there. Previously on imipramine, which was recommended to discontinue due to anticholinergic effect. Assessment & Plan (03/04/2025 8:38 AM EDT): - Following with [facility], last seen in November 2024 -Discontinued Imipramine. -Continue mirabegron -Recently given a sample of Gemtesa -Treatment Hx: Previously on oxybutynin 5 mg which was changed to mirabegron when he went to [place] and was seen by an urologist there. Previously on imipramine, which was recommended to discontinue due to anticholinergic effect. Assessment & Plan (11/19/2024 4:11 PM EDT): - Following with UrologistPioneer Juve, last seen in Apr 2024 -Discontinued Imipramine. -Continue mirabegron -Recently given a sample of Gemtesa -Treatment Hx: Previously on oxybutynin 5 mg which was changed to mirabegron when he went to [place] and was seen by an urologist there. Previously on imipramine, which was recommended to discontinue due to anticholinergic effect. Assessment & Plan (08/13/2024 3:52 PM EST): - Following with UrologistPioneer Juve, last seen in Apr 2024 -Discontinued Imipramine. -Continue mirabegron -Recently given a sample of Gemtesa -Treatment Hx: Previously on oxybutynin 5 mg which was changed to mirabegron when he went to [place] and was seen by an urologist there. Previously on imipramine, which was recommended to discontinue due to anticholinergic effect. Assessment & Plan (04/29/2024 6:49 AM EDT): - Following with UrologistPioneer Juve, last seen in Apr 2024 -Discontinued Imipramine. -Continue mirabegron -Recently given a sample of Gemtesa -Treatment Hx: Previously on oxybutynin 5 mg which was changed to mirabegron when he went to [place] and was seen by an urologist there. Previously on imipramine, which was recommended to discontinue due to anticholinergic effect. Assessment & Plan (01/25/2024 5:07 PM EDT): - Following with UrologistPioneer Juvey, last seen in November 2023 -Discontinued Imipramine. -Continue mirabegron -Treatment Hx: Previously on oxybutynin 5 mg which was changed to mirabegron when he went to [place] and was seen by an urologist there. Previously on imipramine, which was recommended to discontinue due to anticholinergic effect. Assessment & Plan (10/18/2023 1:22 PM EDT): - [facility] last seen in July 2023 -Discontinue Imipramine. -Continue mirabegron -Treatment Hx: Previously on oxybutynin 5 mg which was changed to mirabegron when he went to [place] and was seen by an urologist there. Previously on imipramine, which was recommended to discontinue due to anticholinergic effect. Assessment & Plan (06/22/2023 5:42 AM EST): - [facility], last seen on 02/11/2023 -Continue Imipramine. -Continue mirabegron -Treatment Hx: Previously on oxybutynin 5 mg which was changed to mirabegron when he went to [place] and was seen by an urologist there. Assessment & Plan (02/21/2023 5:12 AM EDT): - [facility], last seen on 02/11/2023 -Continue Imipramine. -Continue myrbetriq. -Treatment Hx: Previously on oxybutynin 5 mg which was changed to Mybetriq when he went to [place] and was seen by an urologist there. Assessment & Plan (11/09/2022 5:06 PM EDT): Following with Urologist, last seen on 10/2022, requested mote of the visit and it is pending at this time -Continue Imipramine. -Continue myrbetriq. -Treatment Hx: Previously on oxybutynin 5 mg which was changed to Mybetriq when he went to [place] and was seen by an urologist. Assessment & Plan (07/04/2022 5:07 AM EST): -Continue Imipramine. -Continue myrbetriq. -Treatment Hx: Previously on oxybutynin 5 mg which was changed to Mybetriq when he went to [place] and was seen by an urologist. Hypertension 11/13/2012 Assessment & Plan (05/28/2025 11:55 AM EST): -Goal BP < 130/80 per ACC/AHA (Tx [...] is already having leg edema. Will consider decreasing its dose. -Continue furosemide 20 mg daily. Consider increasing dose. -Consider retrial of ACEI or ARB -Continue ASA 81 mg daily. Treatment Hx [...] hyperkalemia in February 2024. Assessment & Plan (03/04/2025 8:37 AM EDT): [...] 02/16/24, interrupted due to UTI Prostate cancer ([facility]) 11/13/2012 Assessment & Plan (05/28/2025 10:25 AM EST): [place] in 1992. [place] [facility]: [facility], last seen in [...] per urologist and oncologist. Assessment & Plan (03/04/2025 8:38 AM EDT): Dx in 1992. [place] [facility]rologist: [facility], last seen in [...] in 1992. [place] Urologist: [facility], last seen in Apr [...] in 1992. [place] Urologist: [facility], last seen in Apr [...] in 1992. [place] Urologist: [facility], last seen in Apr [...] in 1992. [place] Urologist: [facility], last seen in Apr [...] in 1992. [place] Urologist: [facility], last seen in November [...] in 1992. [place] Urologist: [facility], last seen in November [...] in 1992. [place] Urologist: Dr. Brush, last seen in Apr [...] in 1992. s/[place] Urologist: Dr. Brush, last seen in 10/2022, [...] in 1992. s/[place] Urologist: [facility], last seen in January 2023 Hx hypogonadism, neurogenic bladder, and recurrent UTI last UTI in 10/2022 last PSA 0.7 in 10/2022, increased from previous PSA Abd/pelvis CT recently showed no sign of recurrence per specialist Continue current treatment plan. Assessment & Plan (10/18/2023 1:23 PM EDT): Dx in 1992. [place] [facility]rologist: [facility], last seen in [...] EDT): >>ASSESSMENT AND PLAN FOR PROSTATE CANCER ([facility]) WRITTEN ON 06/22/2023 12:44 PM BY JOLLY CONSTANTINO MD Dx in 1992. [place] Urologist: [facility] pauly, last seen in May 2023 Hx hypogonadism, [...] appt with urologist and radiation oncologist Called [facility] urolog and requested an assistance in rescheduling Bone Scan appt and giving instruction in [place]ian. The customs officer has kindly agreed to do so. >>ASSESSMENT AND PLAN FOR HISTORY OF PROSTATE CANCER WRITTEN ON 06/22/2023 12:44 PM BY JOLLY CONSTANTINO MD Dx in 1992. [place] Urologist: [facility] gaytan, last seen in May 2023 Hx hypogonadism, [...] appt with urologist and radiation oncologist Called [facility] and requested an assistance in rescheduling Bone Scan appt and giving instruction in [place]ian. The customs officer has kindly agreed to do so. Resolved Problems Problem Noted Date Diagnosed Date Resolved Date Poor appetite 04/29/2024 09/28/2024 Assessment & Plan (04/29/2024 7:01 AM EDT): - patient may benefit from more socialization - continue periodic assessment for depression / dementia Hypoalbuminemia 04/29/2024 05/27/2025 Assessment & Plan (04/29/2024 7:01 AM EDT): - likely due to poor nutritional intake, it can worsen his edema - continue nutritional supplement: Boost Glucose Control or Glucerna - discussed about adult day program, which patient is not enthusiastic about - discussed about meal delivery service. Patient tried once, but preferred [place] foods to typical [place] foods. Patient is willing to try again. - currently going to [employer] for lunch as a part of service from [facility]. - discussed with patient's caretaker about getting a SEISMOLOGY TECHNICAL OFFICER who can cook for him and eat with him. Gastroesophageal reflux disease 01/07/2016 07/04/2022 Helicobacter pylori gastroin testinal tract infection 01/07/2016 01/25/2024 Encounters Date Type Department Care Team Description 06/10/2025 Telephone [facility] [place] [address] Jolly Constantino MD Durable Medical Equipment (Compression stockings) 05/30/[address] [address] Jolly Constantino MD FYI 05/28/[address] [address] Jolly Constantino MD Durable Medical Equipment (DME: Compression Stockings); Call Back Request 05/28/2025 Orders Only [facility] [place] [address] Jolly Constantino MD Primary hypertension (Primary Dx) 05/28/[address] [address] Jolly Constantino MD Medication Question 05/28/[address] [address] Jolly Constantino MD Durable Medical Equipment (DME: Compression Stocking ) 05/27/2025 9:00 AM EST Office Visit [facility] [place] [address] Jolly Constantino MD Primary hypertension (Primary Dx); At risk for falls; Dyslipidemia; Prostate cancer ([facility]) (HCC); Type 2 diabetes mellitus with hyperglycemia, without long-term current use of insulin ([facility]); Dependent edema; Dizziness; Tinnitus of both ears; Neurogenic bladder; Recurrent UTI; Anemia of chronic disease; Encounter for immunization; Scrotal swelling; Bilateral lower extremity edema 05/27/2025 Travel 05/24/2025 Telephone [facility] [place] [place] [address] Jolly Constantino MD chartprep 05/17/[address] [address] Jolly Constantino MD Order 05/13/2025 Orders Only GENERIC EXTERNAL DATA DEPARTMENT Provider, Generic External Data 05/09/2025 Telephone [facility] [place] [address] Jolly Constantino MD Durable Medical Equipment 05/08/2025 Telephone [facility] [place] [address] Nata Hogan, ANY 05/08/2025 Telephone [facility] [place] [address] Nata Hogan, ANY 05/06/2025 5:20 PM EDT Office Visit [facility] [place] [address] Tarah Faust FNP Dependent edema (Primary Dx) 05/06/2025 Travel 05/06/2025 Telephone [facility] [place] [place] [address] Jolly Constantino MD Durable Medical Equipment (DME Request: Shower chair/Raised Toilet Seat) 05/06/2025 Telephone [facility] [place] [address] Jolly Constantino MD Appointment Request 04/30/2025 Telephone [facility] [place] [address] Jolly Constantino MD verbal orders 04/29/2025 Telephone [facility] [place] [address] Jolly Constantino MD No Show 04/26/2025 Telephone [facility] [place] [address] Jolly Constantino MD chartprep 04/25/2025 Telephone [facility] [place] [address] Kourtney Olguin, PharmD Hospital Follow-up 04/23/2025 Telephone [facility] [place] [address] Kourtney Olguin, PharmD 04/20/2025 Refill [facility] [place] [address] Rebecca Hamm, DESEAN Type 2 diabetes mellitus with hyperglycemia, without long-term current use of insulin (HCC) 04/17/2025 Patient Outreach [address] [address] Jolly Constantino MD Transition Of Care (Tcm) (HDF-scheduled) 04/10/2025 Patient Outreach [address] [address] Jolly Constantino MD Pre-visit Planning (HDF unscheduled unable to LVM ) 04/10/[address] [address] Jolly Constantino MD Hospital Follow-up 04/04/2025 Orders Only GENERIC EXTERNAL DATA DEPARTMENT Provider, Generic External Data 04/03/[address] [address] Kourtney Olguin, Marc 04/03/2025 Orders Only GENERIC EXTERNAL DATA DEPARTMENT Provider, Generic External Data 04/03/[address] [address] Jolly Constantino MD chart prep 03/28/2025 Patient Outreach [address] [address] Jolly Constantino MD Transition Of Care (Tcm) (HDF cheduled ) 03/28/[address] [address] Jolly Constantino MD Hospital Follow-up 03/22/2025 Orders Only GENERIC EXTERNAL DATA DEPARTMENT Provider, Generic External Data from Last 3 Months Immunizations Immunization Administration Dates Next Due Hep B, adult 06/18/2014,04/14/2011,02/09/2011 Influenza High-dose Quadriva lent Preservative Free 06/23/2023,03/31/2021,04/21/2020 Influenza injectable quadriv alent IIV4 with preservative 06/29/2022,04/14/2016,04/25/2015 Influenza, High Dose Seasona l, Preservative Free 05/27/2025,04/16/2024,05/23/2019,05/02,04/19/2017 Influenza, IIV3, injectable 06/18/2014, 1 Influenza, Split (incl. nicolle fied surface antigen) 03/27/2013,04/25/2012 Moderna Covid-19 Vaccine 12+ 11/09/2021, 06/03/2021,09/25/2020,08/28 Moderna Covid-19 Vaccine 6+ Bivalent 07/06/2022 Pfizer Covid-19 Vaccine 12+ 05/27/2025, 4,06/23/2023 Pneumococcal Conjugate PCV 13 10/28/2014 Pneumococcal Polysaccharide [...] Sign Reading Time Taken Comments Blood Pressure 140/60 05/27/2025 9:43 AM EST Pulse 106 05/27/2025 9:43 AM EST Temperature 35.7 C (96.2 F) 05/27/2025 9:43 AM EST Respiratory Rate 22 05/27/2025 9:43 AM EST Oxygen Saturation 98% 05/27/2025 9:43 AM EST Inhaled Oxygen Concentration - - Weight 76.6 kg (168 lb 12.8 oz) 05/27/2025 9:43 AM EST Height 154.9 cm (5' 1 ) 05/27/2025 9:43 AM EST Body Mass Index 31.89 05/27/2025 9:43 AM EST Plan of Treatment Upcoming Encounters Date Type Department Care Team (Late st Contact Info) Description 06/24/2025 1:00 PM EST Medication Management [facility] [address] [place] [phone] Javier Benton, PharmD [address] [place] [id number] 07/09/2025 3:30 PM EST Office Visit [facility] [address] [place] [phone] Jolly Constantino MD [address] [place] [id number] Health Maintenance Due Date Last Done Comments Dental Prophylaxis 1937 Dental X-Ray: Bitewings 1937 Dental Oral Exam 03/06/2025 09/05/2024 Depression Screening 08/13/2025 08/13/2024, 08/13/19 Diabetes: Hemoglobin A1C 08/27/2025 025, 02/25/2025, 11/19/2024, Additional history exists Lipid Panel 09/17/2025 09/17/2024, 01/15, 02/22/2023, Additional history exists SDOH Screening 11/19/2025 11/19/2024 COVID-19 Vaccine ( season) 2025 05/27/2025, 04/16/2024, 06/23/2023, Additional history exists Eye Exam 12/07/2025 12/08/2023 Diabetes: Urine Protein Screening 02/27/2026 02/27/2025, 01/25/2024, 02/14/2023, Additional history exists Alcohol/Substance Use Screening 05/27/2026 05/27/2025 Diabetes: Foot Exam 05/27/2026 05/27/2025, 04/26/2024, 04/26/2024, Additional history exists Tobacco Screening 05/28/2026 05/28/2025 Dental X-Ray: Full Mouth 09/06/2027 09/05/2024 DTaP/Tdap/Td Vaccines (3 - Td or Tdap) 08/17/2033 08/17/2023, 11/13/2012, 10/24/2003 Hepatitis B Vaccines Completed 06/18/2014, 04/14/2011, 02/09/2011 Pneumococcal Vaccine: 50+ Years Completed 10/28/2014, 11/22/2006, 05/11/2000 Zoster Vaccines Completed 01/07/2023, 03/18, 10/28/2014 RSV Patients and Patients Aged 60 years or older Completed 08/17/2023 Influenza Vaccine Completed 05/27/2025, , 06/23/2023, Additional history exists HIB Vaccines Aged Out [...] Author Blood Pressure < 140/90 Blood Pressure 140/60(2024 9:43 AM EST) No Javier Benton, PharmD Help patients manage their type 2 diabetes Care Plan Help patients manage their type 2 diabetes No Seda Laguerre Weekly blood pressure task Care Plan Weekly blood pressure task No Seda Laguerre Help patients manage their type 2 diabetes Care Plan Help patients manage their type 2 diabetes No Seda Laguerre Patient has chronic kidney disease Care Plan Patient has chronic kidney disease No Seda Laguerre Weekly blood pressure task Care Plan Weekly blood pressure task No Seda Laguerre Patient has chronic kidney disease Care Plan Patient has chronic kidney disease No Seda Laguerre Weekly blood pressure task Care Plan Weekly blood pressure task No Lizbeth Morgan RN Weekly blood pressure task Care Plan Weekly blood pressure task No Lizbeth Morgan, ANY Patient has chronic kidney disease Care Plan Patient has chronic kidney disease No Lizbeth Morgan RN Patient has chronic kidney disease Care Plan Patient has chronic kidney disease No Lizbeth Morgan RN Weekly blood pressure task Care Plan Weekly blood pressure task No Parviz Cotto Weekly blood pressure task Care Plan Weekly blood pressure task No Parviz Cotto Patient has chronic kidney disease Care Plan Patient has chronic kidney disease No Parviz Cotto Patient has chronic kidney disease Care Plan Patient has chronic kidney disease No Parviz Cotto Weekly blood pressure task Care Plan Weekly blood pressure task No June Sloan Weekly blood pressure task Care Plan Weekly blood pressure task No June Sloan Patient has chronic kidney disease Care Plan Patient has chronic kidney disease No June Sloan Patient has chronic kidney disease Care Plan Patient has chronic kidney disease No Luther June Weekly blood pressure task Care Plan Weekly blood pressure task No Javier Benton PharmD Weekly blood pressure task Care Plan Weekly blood pressure task No Javier Benton PharmD Patient has chronic kidney disease Care Plan Patient has chronic kidney disease No Javier Benton PharmD Patient has chronic kidney disease Care Plan Patient has chronic kidney disease No Javier Benton PharmD Procedures Procedure Name Priority Date/Time Associated Diagnosis Comments US SCROTUM Urgent 06/19/2025 2:00 PM EST Type 2 diabetes mellitus with hyperglycemia, without long-term current use of insulin (HCC) Scrotal swelling [facility] US LOWER EXTREMITY VENOUS INSUFFICIENCY BILATERAL Urgent 06/19/2025 1:22 PM EST Bilateral lower extremity edema POCT GLYCOSYLATED HEMOGLOBIN (HGB A1C) Routine 05/27/2025 9:09 AM EST Type 2 diabetes mellitus with hyperglycemia, without long-term current use of insulin (HCC) POCT GLUCOSE Routine 05/27/2025 9:08 AM EST Type 2 diabetes mellitus with hyperglycemia, without long-term current use of insulin (HCC) GLUCOSE, WHOLE BLOOD Routine 05/13/2025 8:09 PM EDT VAS US LOWER EXTREMITY VENOUS DUPLEX BILATERAL Routine 05/13/2025 7:49 PM EDT XR CHEST 2 VIEWS Routine 05/13/2025 7:35 PM EDT NT-PROBNP Routine 05/13/2025 2:26 PM EDT MAGNESIUM Routine 05/13/2025 2:26 PM EDT COMPREHENSIVE METABOLIC PANEL Routine 05/13/2025 2:26 PM EDT CBC WITH AUTO DIFFERENTIAL Routine 05/13/2025 2:26 PM EDT URINALYSIS, COMPLETE, WITH REFLEX TO CULTURE Routine 05/13/2025 2:26 PM EDT CULTURE, URINE, ROUTINE Routine 05/13/2025 12:00 AM EDT GLUCOSE, WHOLE BLOOD Routine 04/04/2025 7:29 [...] WO CONTRAST Routine 03/22/2025 11:41 AM EDT ALBUMIN, RANDOM URINE W/CREATININE Routine 02/27/2025 2:39 PM EDT Type 2 diabetes mellitus with hyperglycemia, without long-term current use of insulin ([facility]) LIPID PANEL, STANDARD Routine 09/17/2024 1:26 PM EST PANORAMIC RADIOGRAPHIC IMAGE Routine 09/05/2024 1:30 PM EST PERIODIC ORAL EVALUATION - ESTABLISHED PATIENT Routine 09/05/2024 1:30 PM EST DIABETES EYE EXAM Routine 12/08/2023 from Last 3 Months or Most Recently Relevant to Health Maintenance Results * US Scrotum (06/19/2025 2:00 PM EST) Anatomical Region Laterality Modality Body Ultrasound 06/19/2025 2:00 PM EST Narrative 06/19/2025 2:41 PM EST [address] [address] Ultrasound Report Signed Patient: Toni Keys MR#: [id number] : 1935 Acct:[id number] Age/Sex: 89 / M ADM Date: 06/19/25 Loc: HO.US Attending Dr: Jolly Constantino MD Ordering Physician: Jolly Constantino MD Date of Service: 06/19/25 Procedure(s): US scrotum Accession Number(s): [id number] cc: Jolly Constantino MD Reason for Exam: scrotal swelling, history of prostate cancer EXAMINATION: US SCROTUM CLINICAL INFORMATION: Scrotal swelling, history of prostate CA. 89-year-old male. COMPARISON: 12/07/2005. Correlation made with CT abdomen and pelvis 03/11/2025. TECHNIQUE: A sonogram of the scrotum was performed assessing torres-scale appearance and color Doppler flow. Spectral Doppler analysis of the arterial and venous flow were performed in the testes bilaterally. FINDINGS: There is diffuse edematous thickening of the scrotal skin, with associated subcutaneous edema. 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 There is no right hydrocele or abnormality in the right scrotal sac. LEFT: Left testicle measures 2.0 x 1.3 x 1.5 cm, volume 2.0 mL. No focal testicular parenchymal lesions are visualized. Spectral Doppler analysis of the arterial and venous flow is normal in the left testis. Left epididymal head is normal in size. Left epididymal head simple cyst measuring 1.1 x 0.7 x 1.0 cm. No left hydrocele or varicocele is seen. Left epididymal Doppler flow is normal. US/US scrotum IMPRESSION: 1. Diffuse skin thickening and subcutaneous edema of the scrotum. This may be on the basis of cellulitis but is nonspecific. 2. 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 3. The left testis is grossly normal in appearance. There is a left epididymal head cyst measuring up to 1.1 cm. Electronically signed by: Simón Aden MD 06/19/2025 02:38 PM [facility] Dictated By: Simón Aden MD Signed By: <Electronically signed by Simón Aden MD in OV> 06/19/25 1438 DD/ 1400 TD/TT: 06/19/25 1415 Media Developer: Procedure Note Donotuseinterpreter, Image - 06/19/2025 [place] [address] Ultrasound Report Signed Patient: Toni Keys MR#: [id number] : 8Acct:[id number] Age/Sex: 89 / MADM Date: 06/19/25 Loc: .US Attending Dr: Jolly Constantino MD Ordering Physician: Jolly Constantino MD Date of Service: 06/19/25 Procedure(s): US scrotum Accession Number(s): [id number] cc: Jolly Constantino MD Reason for Exam: scrotal swelling, history of prostate cancer EXAMINATION: US SCROTUM CLINICAL INFORMATION: Scrotal swelling, history of prostate CA. 89-year-old male. COMPARISON: 12/07/2005. Correlation made with CT abdomen and pelvis 03/11/2025. TECHNIQUE: A sonogram of the scrotum was performed assessing torres-scale appearance and color Doppler flow. Spectral Doppler analysis of the arterial and venous flow were performed in the testes bilaterally. FINDINGS: There is diffuse edematous thickening of the scrotal skin, with associated subcutaneous edema. 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 There is no right hydrocele or abnormality in the right scrotal sac. LEFT: Left testicle measures 2.0 x 1.3 x 1.5 cm, volume 2.0 mL. No focal testicular parenchymal lesions are visualized. Spectral Doppler analysis of the arterial and venous flow is normal in the left testis. Left epididymal head is normal in size. Left epididymal head simple cyst measuring 1.1 x 0.7 x 1.0 cm. No left hydrocele or varicocele is seen. Left epididymal Doppler flow is normal. US/US scrotum IMPRESSION: 1. Diffuse skin thickening and subcutaneous edema of the scrotum. This may be on the basis of cellulitis but is nonspecific. 2. 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 3. The left testis is grossly normal in appearance. There is a left epididymal head cyst measuring up to 1.1 cm. Electronically signed by: Simón Aden MD 06/19/2025 02:38 PM EST Dictated By: Simón Aden MD Signed By: <Electronically signed by Simón Aden MD in OV> 06/19/25 1438 DD/ 1400 TD/TT: 06/19/25 1415 Media Developer: us Jolly Constantino MD IMG US PROCEDURES Final Result * Vascular US lower extremity venous insufficiency bilateral (06/19/2025 1:22 PM EST) 06/19/2025 1:22 PM EST Narrative [facility] - 06/19/2025 2:03 PM EST [address] [address] Ultrasound Report Signed Patient: Toni Keys MR#: [id number] : 1935 Acct:[id number] Age/Sex: 89 / M ADM Date: 06/19/25 Loc: HO.US Attending Dr: Jolly Constantino MD Ordering Physician: Jolly Constantino MD Date of Service: 06/19/25 Procedure(s): US venous insuf bilat Accession Number(s): [id number] cc: Jolyl Constantino MD Reason for Exam: bilat lower extremity edema EXAMINATION: US LOWER EXTREMITY VENOUS (REFLUX EXAM), BILATERAL CLINICAL INFORMATION: Edema, lower extremities. COMPARISON: None. TECHNIQUE: Color flow triplex imaging and compression Doppler was performed to evaluate both the deep and the superficial systems bilaterally. To evaluate the superficial system, the examination was performed in the upright position. Color-flow Doppler ultrasound and compression ultrasound were utilized. In addition, maneuvers were utilized to demonstrate reflux. FINDINGS: 1. DEEP VENOUS ULTRASOUND OF THE RIGHT LOWER EXTREMITY: Common Femoral Vein: Compressible, normal respiratory variation and augmented flow. Femoral Vein: Compressible, normal color flow and augmentation. Popliteal Vein: Compressible, normal augmentation. Deep Reflux: There is no evidence of reflux in the deep system in either the common femoral vein, superficial femoral or the popliteal vein. There is no evidence of a Mayers's cyst. 2. SUPERFICIAL ULTRASOUND WITH DOPPLER OF RIGHT LOWER EXTREMITY: GREAT SAPHENOUS VEIN: Saphenofemoral Junction: 0.5 cm; Reflux: 0 ms Proximal Thigh: 0.3 cm; Reflux: 0 ms Mid Thigh: 0.2 cm; Reflux: 0 ms Distal Thigh: 0.1 cm; Reflux: 0 ms At Knee: Not seen. Proximal Calf: Not seen. Mid Calf: Not seen. Distal Calf: Not seen. DUPLICATED MEDIAL GREAT SAPHENOUS VEIN: Diameter: None imaged Reflux: NA DUPLICATED LATERAL GREAT SAPHENOUS VEIN: Diameter: None imaged Reflux: NA SMALL SAPHENOUS VEIN: Saphenopopliteal Junction: 0.2 cm; Reflux: 0 ms Proximal: 0.2 cm; Reflux: 0 ms Distal: 0.1 cm; Reflux: 0 ms VEIN OF GIACOMINI: Size: NA Reflux: NA PERFORATORS: Location: None imaged Size: NA Reflux: NA VARICOSITIES: Location: None imaged. Size: NA Reflux: NA 3. DEEP VENOUS ULTRASOUND OF THE LEFT LOWER EXTREMITY: Common Femoral Vein: Compressible, normal respiratory variation and augmented flow. Femoral Vein: Compressible, normal color flow and augmentation. Popliteal Vein: Compressible, normal augmentation. Deep Reflux: There is no evidence of reflux in the deep system in either the common femoral vein, superficial femoral or the popliteal vein. There is no evidence of a Mayers's cyst. 4. SUPERFICIAL ULTRASOUND WITH DOPPLER OF LEFT LOWER EXTREMITY: GREAT SAPHENOUS VEIN: Saphenofemoral Junction: 1.1 cm; Reflux: 0 ms Proximal Thigh: 0.4 cm; Reflux: 0 ms Mid Thigh: 0.3 cm; Reflux: 0 ms Distal Thigh: 0.2 cm; Reflux: 0 ms At Knee: 0.2 cm; Reflux: 0 ms Proximal Calf: Not seen. Mid Calf: 0.2 cm; Reflux: 0 ms Distal Calf: 0.2 cm; Reflux: 0 ms DUPLICATED MEDIAL GREAT SAPHENOUS VEIN: Diameter: None imaged Reflux: NA DUPLICATED LATERAL GREAT SAPHENOUS VEIN: Diameter: None imaged. Reflux: NA SMALL SAPHENOUS VEIN: Saphenopopliteal Junction: 0.1 cm; Reflux: 0 ms Proximal: 0.3 cm; Reflux: 0 ms Distal: 0.2 cm; Reflux: 0 ms VEIN OF GIACOMINI: Size: NA Reflux: NA PERFORATORS: Location: None imaged Size: NA Reflux: NA VARICOSITIES: Location: Mid thigh. Size: 0.4 cm. Reflux: NA US/US venous insuf bilat IMPRESSION: Right: No venous insufficiency. Left: No venous insufficiency. 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 Electronically signed by: Alin Hurt MD 06/19/2025 02:00 PM [facility] Dictated By: Alin Ko MD Signed By: <Electronically signed by Alin Corrales MD in OV> 06/19/25 1400 DD/ 1322 TD/TT: 06/19/25 1350 Media Developer: Procedure Note Donotuseinterpreter, Image - 06/19/[address] [address] Ultrasound Report Signed Patient: Toni Keys MR#: [id number] : 8Acct:[id number] Age/Sex: 89 / MADM Date: 06/19/25 Loc: HO.US Attending Dr: Jolly Constantino MD Ordering Physician: Jolly Constantino MD Date of Service: 06/19/25 Procedure(s): US venous insuf bilat Accession Number(s): [id number] cc: Jolly Constantino MD Reason for Exam: bilat lower extremity edema EXAMINATION: US LOWER EXTREMITY VENOUS (REFLUX EXAM), BILATERAL CLINICAL INFORMATION: Edema, lower extremities. COMPARISON: None. TECHNIQUE: Color flow triplex imaging and compression Doppler was performed to evaluate both the deep and the superficial systems bilaterally. To evaluate the superficial system, the examination was performed in the upright position. Color-flow Doppler ultrasound and compression ultrasound were utilized. In addition, maneuvers were utilized to demonstrate reflux. FINDINGS: 1. DEEP VENOUS ULTRASOUND OF THE RIGHT LOWER EXTREMITY: Common Femoral Vein: Compressible, normal respiratory variation and augmented flow. Femoral Vein: Compressible, normal color flow and augmentation. Popliteal Vein: Compressible, normal augmentation. Deep Reflux: There is no evidence of reflux in the deep system in either the common femoral vein, superficial femoral or the popliteal vein. There is no evidence of a Mayers's cyst. 2. SUPERFICIAL ULTRASOUND WITH DOPPLER OF RIGHT LOWER EXTREMITY: GREAT SAPHENOUS VEIN: Saphenofemoral Junction: 0.5 cm; Reflux: 0 ms Proximal Thigh: 0.3 cm; Reflux: 0 ms Mid Thigh: 0.2 cm; Reflux: 0 ms Distal Thigh: 0.1 cm; Reflux: 0 ms At Knee: Not seen. Proximal Calf: Not seen. Mid Calf: Not seen. Distal Calf: Not seen. DUPLICATED MEDIAL GREAT SAPHENOUS VEIN: Diameter: None imaged Reflux: NA DUPLICATED LATERAL GREAT SAPHENOUS VEIN: Diameter: None imaged Reflux: NA SMALL SAPHENOUS VEIN: Saphenopopliteal Junction: 0.2 cm; Reflux: 0 ms Proximal: 0.2 cm; Reflux: 0 ms Distal: 0.1 cm; Reflux: 0 ms VEIN OF GIACOMINI: Size: NA Reflux: NA PERFORATORS: Location: None imaged Size: NA Reflux: NA VARICOSITIES: Location: None imaged. Size: NA Reflux: NA 3. DEEP VENOUS ULTRASOUND OF THE LEFT LOWER EXTREMITY: Common Femoral Vein: Compressible, normal respiratory variation and augmented flow. Femoral Vein: Compressible, normal color flow and augmentation. Popliteal Vein: Compressible, normal augmentation. Deep Reflux: There is no evidence of reflux in the deep system in either the common femoral vein, superficial femoral or the popliteal vein. There is no evidence of a Mayers's cyst. 4. SUPERFICIAL ULTRASOUND WITH DOPPLER OF LEFT LOWER EXTREMITY: GREAT SAPHENOUS VEIN: Saphenofemoral Junction: 1.1 cm; Reflux: 0 ms Proximal Thigh: 0.4 cm; Reflux: 0 ms Mid Thigh: 0.3 cm; Reflux: 0 ms Distal Thigh: 0.2 cm; Reflux: 0 ms At Knee: 0.2 cm; Reflux: 0 ms Proximal Calf: Not seen. Mid Calf: 0.2 cm; Reflux: 0 ms Distal Calf: 0.2 cm; Reflux: 0 ms DUPLICATED MEDIAL GREAT SAPHENOUS VEIN: Diameter: None imaged Reflux: NA DUPLICATED LATERAL GREAT SAPHENOUS VEIN: Diameter: None imaged. Reflux: NA SMALL SAPHENOUS VEIN: Saphenopopliteal Junction: 0.1 cm; Reflux: 0 ms Proximal: 0.3 cm; Reflux: 0 ms Distal: 0.2 cm; Reflux: 0 ms VEIN OF GIACOMINI: Size: NA Reflux: NA PERFORATORS: Location: None imaged Size: NA Reflux: NA VARICOSITIES: Location: Mid thigh. Size: 0.4 cm. Reflux: NA US/US venous insuf bilat IMPRESSION: Right: No venous insufficiency. Left: No venous insufficiency. 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 Electronically signed by: Alin Hurt MD 06/19/2025 02:00 PM EST Dictated By: Alin Ko MD Signed By: <Electronically signed by Alin Corrales MDin OV> 06/19/25 1400 DD/ 1322 TD/TT: 06/19/25 1350 Media Developer: us Jolly Constantino MD CV VASCULAR PROCEDURES Final Res ult [facility] [address] [place] [phone] * (ABNORMAL) POCT glycosylated hemoglobin (Hgb A1c) (05/27/2025 9:09 AM EST) Hemoglobin A1C 7.7(A) 4.0 - 5.7 % QC Media Lot # [id number] Lot# Expiration Date Blood Capillary blood specimen / Unknown 05/27/2025 9:09 AM EST Jolly Constantino MD POINT OF CARE TEST ENTER/EDIT OR DERABLES Final Result * (ABNORMAL) POCT glucose manually resulted (05/27/2025 9:08 AM EST) Glucose Blood, POC 214(A) 60 - 200 mg/dL QC Media Lot # [id number] Lot# Expiration Date Blood Capillary blood specimen / Unknown 05/27/2025 9:08 AM EST Jolly Constantino MD POINT OF CARE TEST ENTER/EDIT OR DERABLES Final Result * (ABNORMAL) Glucose, Whole Blood (05/13/2025 8:09 PM EDT) Only the most recent of5 resultswithin the time period is included. Glucose, Whole Blood 130(H) 60 - 115 mg/dL [facility] Comment:METER #: [id number] 05/13/2025 8:09 PM EDT 05/13/2025 8:12 PM EDT us Generic External Data Provider LAB BLOOD ORDERAB LES Final Result [facility] [address] [place] [phone] * VASC US Lower Extremity Venous Duplex Bilateral (05/13/2025 7:49 PM EDT) 05/13/2025 7:49 PM EDT Narrative [facility] - 05/13/2025 7:51 PM EDT [address] [address] Ultrasound Report Signed Patient: Toni Keys MR#: [id number] : 1935 Acct:[id number] Age/Sex: 89 / M ADM Date: 05/13/25 Loc: .ED Attending Dr: Ordering Physician: Uzair Hines DO Date of Service: 05/13/25 Procedure(s): US venous duplex LE BI Accession Number(s): [id number] cc: Jolly Constantino MD; Uzair Hines DO Reason for Exam: leg edema CLINICAL HISTORY: leg edema Bilateral lower extremity venous duplex ultrasound. Color and spectral waveform analysis. Comparison: None provided Findings: Deep veins are compressible with flow and augmentation. No popliteal cyst. No significant adenopathy. Impression: No evidence for DVT This document has been electronically signed by: Hima Jordan MD on 05/13/2025 19:49:02 Dictated By: Hima Jordan MD Signed By: <Electronically signed by Hima Jodran MD in OV> 05/13/251949 DD/ 48 TD/TT: 05/13/251948 Media Developer: Procedure Note Donotuseinterpreter, Image - 05/13/2025 [place] [address] Ultrasound Report Signed Patient: Toni Keys MR#: [id number] : 1935cct:[id number] Age/Sex: 89 / MADM Date: 05/13/25 Loc: .ED Attending Dr: Ordering Physician: Uzair Hines DO Date of Service: 05/13/25 Procedure(s): US venous duplex LE BI Accession Number(s): [id number] cc: Jolly Constantino MD; Uzair Hines DO Reason for Exam: leg edema CLINICAL HISTORY: leg edema Bilateral lower extremity venous duplex ultrasound. Color and spectral waveform analysis. Comparison: None provided Findings: Deep veins are compressible with flow and augmentation. No popliteal cyst. No significant adenopathy. Impression: No evidence for DVT This document has been electronically signed by: Hima Jordan MD on 05/13/2025 19:49:02 Dictated By: Hima Jordan MD Signed By: <Electronically signed by Hima Jordan MD in OV> 05/13/25 1950 DD/ 48 TD/TT: 05/13/251948 Media Developer: us [facility] External Provider CV VASC ULAR PROCEDURES Final Result [facility] [address] [place] [phone] * XR Chest 2 Views (05/13/2025 7:35 PM EDT) Anatomical Region Laterality Modality Chest Radiographic Edilia ging 05/13/2025 7:35 PM EDT Narrative 05/13/2025 7:37 PM EDT [address] [address] XRay Report Signed Patient: Toni Keys MR#: [id number] : 1935 Acct:[id number] Age/Sex: 89 / M ADM Date: 05/13/25 Loc: .ED Attending Dr: Ordering Physician: Uzair Hines DO Date of Service: 05/13/25 Procedure(s): XR chest 2V Accession Number(s): [id number] cc: Jolly Constantino MD; Uzair Hines DO Reason for Exam: leg edema CLINICAL HISTORY: leg edema 2 view chest x-ray Comparison: CR/SR - XR CHEST 1 VIEW - 03/22/25 13:15 EDT Findings: No consolidation or effusion. Normal size heart. No acute fracture. IMPRESSION: 1. No acute findings. This document has been electronically signed by: Leydi Ho MD on 05/13/2025 19:35:38 Dictated By: Leydi Ho MD Signed By: <Electronically signed by Leydi Ho MD in OV> 05/13/251935 DD/ 34 TD/TT: 05/13/251934 Media Developer: Procedure Note Donotuseinterpreter, Image - 05/13/[address] [address] XRay Report Signed Patient: Toni Keys MR#: [id number] : 8Acct:[id number] Age/Sex: 89 / MADM Date: 05/13/25 Loc: HO.ED Attending Dr: Ordering Physician: Uzair Hines DO Date of Service: 05/13/25 Procedure(s): XR chest 2V Accession Number(s): [id number] cc: Jolly Constantino MD; Uzair Hines DO Reason for Exam: leg edema CLINICAL HISTORY: leg edema 2 view chest x-ray Comparison: CR/SR - XR CHEST 1 VIEW - 03/22/25 13:15 EDT Findings: No consolidation or effusion. Normal size heart. No acute fracture. IMPRESSION: 1. No acute findings. This document has been electronically signed by: Leydi Ho MD on 05/13/2025 19:35:38 Dictated By: Leydi Ho MD Signed By: <Electronically signed by Leydi Ho MD in OV> 05/13/251935 DD/ 34 TD/TT: 05/13/251934 Media Developer: [facility] External Provider IMG XR PROCEDURES Final Result * (ABNORMAL) Urinalysis, Complete, with Reflex to Culture (05/13/2025 2:26 PM EDT) Only the most recent of2 resultswithin the time period is included. Color Urine Yellow [facility] Appearance Urine Clear [facility] PH 6.5 5.0 - 9.0 [facility] Glucose Urine UA Negative Negative mg/dL [facility] Urine Blood Negative Negative [facility] Specific Connelly - Urine 1.020 1.005 - 1.025 [facility] Urine Protein 30 (1+)(A) Neg-Trace mg/dL [facility] Urine Ketones Trace Negative mg/dL [facility] Nitrite Urine Negative Negative [facility] Leukocyte Esterase Urine Small (1+)(A) Negative [facility] RBC Urine 0-2 0 - 2 /HPF [facility] Urine WBC 6-10(A) 0 - 5 /HPF [facility] Urine Squamous Epithelial Cell 0-2 0 - 2 /HPF [facility] Urine Bacteria None Seen None Seen [facility] Hyaline Casts, Urine 0-2 0 - 2 /LPF [facility] 05/13/2025 2:26 PM EDT 05/13/2025 2:30 PM EDT Narrative [facility] - 05/13/2025 2:44 PM EDT Urine, Clean Catch us Generic External Data Provider LAB URINE ORDERAB LES Final Result Performing Organization Address [facility] Co de Phone Number [facility] [address] [place] [phone] * NT-proBNP (05/13/2025 2:26 PM EDT) NT-proBNP 88.6 <300 pg/mL [facility] Comment:Reference Range:Age Group (years) NT-proBNP (pg/ml) InterpretationAll <300 Negative: HF unlikelyFor patients presenting to the ED with clinical suspicion ofnew onset or worsening HF, see below:18 to <50 >299.9 to <450.0 Grayzone: [id number] to 75 >299.9 to <900.0 other causes of>75 >299.9 to <1800.0 NT-proBNP zummcicbz19 to <50 >449.9 Positive: HF [id number] >899.9>75 >1799.9Note: Elevated NT-proBNP levels should be interpreted inthe context of other clinical information. 05/13/2025 2:26 PM EDT 05/13/2025 2:30 PM EDT us Generic External Data Provider LAB BLOOD ORDERAB LES Final Result Performing Organization Address [facility]/ZIP Co de Phone Number [facility] [address] [place] [phone] * (ABNORMAL) CBC auto differential (05/13/2025 2:26 PM EDT) Only the most recent of2 resultswithin the time period is included. White Blood Count 5.2 4.8 - 10.8 X10*3/uL [facility] Red Blood Count 3.59(L) 4.60 - 5.80 X10*6/uL [facility] Hemoglobin 9.7(L) 14.0 - 18.0 g/dl [facility] Hematocrit 30.7(L) 42.0 - 52.0 % [facility] Mean Corpuscular Volume 85.5 80.0 - 98.0 fL [facility] [facility] Mean Corpuscular Hemoglobin 27.0 27.0 - 33.0 pg [facility] Mean Corpuscular HGB Conc 31.6 31.0 - 36.0 g/dl [facility] Red Cell Distribution Width 18.0(H) 11.0 - 16.0 % [facility] Platelet Count 312 160 - 400 X10*3/uL [facility] Mean Platelet Volume 9.7 9.4 - 12.4 fL [facility] Neutrophils Percent Auto 79.8(H) 45 - 73 % [facility] Imm Gran Pct Auto 0.4 0.0 - 0.4 % [facility] Lymphocytes Percent Auto 7.8(L) 20 - 40 % [facility] Monocytes Percent Auto 10.3 2 - 11 % [facility] Eosinophils Percent Auto 1.1 0 - 4 % [facility] Basophils Percent Auto 0.6 0 - 2 % [facility] NRBC Pct Auto 0.0 0.0 - 0.2 /100WBC [facility] Neutrophils Absolute Auto 4.2 2.0 - 8.3 x10*3/uL [facility] Imm Gran Abs Auto 0.02 0.00 - 0.03 X10*3/uL [facility] Lymphocytes Absolute Auto 0.4(L) 1.2 - 4.9 X10*3/uL [facility] Monocytes Absolute Auto 0.5 0.1 - 1.2 X10*3/uL [facility] Eosinophils Absolute Auto 0.1 0.0 - 0.4 X10*3/uL [facility] Basophils Absolute Auto 0.0 0.0 - 0.2 X10*3/uL [facility] NRBC Abs Auto 0.000 0.0 - 0.012 X10*3/uL [facility] 05/13/2025 2:26 PM EDT 05/13/2025 2:30 PM EDT Generic External Data Provider LAB BLOOD ORDERAB LES Final Result Performing Organization Address [facility] Co de Phone Number [facility] [address] [place] [address] [phone] * Magnesium (05/13/2025 2:26 PM EDT) [facility] Magnesium 1.8 1.6 - 2.6 mg/dL [facility] 05/13/2025 2:26 PM EDT 05/13/2025 2:30 PM EDT [employer] External Data Provider LAB BLOOD ORDERAB LES Final Result Performing Organization Address [facility] de Phone Number [facility] [address] [place] [address] [phone] * (ABNORMAL) Comprehensive Metabolic Panel (05/13/2025 2:26 PM EDT) Only the most recent of2 resultswithin the time period is included. Pathologist [facility] Sodium 140 135 - 145 mmol/L [facility] Potassium 4.5 3.3 - 5.1 mmol/L [facility] Chloride 108 96 - 108 mmol/L [facility] Carbon Dioxide 26 22 - 29 mmol/L [facility] Anion Gap 11(L) 12 - 20 [facility] Urea Nitrogen (BUN) 16 9 - 16 mg/dL [facility] Creatinine, Serum 0.89 0.5 - 1.4 mg/dL [facility] Creatinine Clr Calc Pharmacy 53.6 [facility] Comment:eGFR (calculated fro m the MDRD study equation) and eCrCl(calculated from the Cockcroft-Gault equation) are based ondifferent parameters and may not yield comparable results.If eCrCl result is absurd, please check patient'sheight/weight. Estimated Glomerular Filt Rate >60 [facility] Comment:Chronic Kidney Disea se: Estimated GFR < 60 mL/min/1.62i8Zekwfw Kidney Disease: Estimated GFR < 15 mL/min/1.73m2 Glucose 262(H) 60 - 115 mg/dL [facility] Calcium 8.9 8.4 - 10.2 mg/dL [facility] Bilirubin, Total 0.5 0.0 - 1.0 mg/dL [facility] Aspartate Amino Transferase 17 5 - 37 U/L [facility] Alanine Aminotransferase 9 0 - 40 U/L [facility] Total Protein 6.3(L) 6.5 - 8.0 g/dL [facility] Albumin Level 3.7 3.5 - 5.0 g/dL [facility] Alkaline Phosphatase 125(H) 39 - 117 U/L [facility] 05/13/2025 2:26 PM EDT 05/13/2025 2:30 PM EDT Generic External Data Provider LAB BLOOD ORDERAB LES Final Result Performing Organization Address [facility]/ZIP Co de Phone Number [facility] [address] [place] [address] [phone] * Culture, Urine, Routine (05/13/2025 12:00 AM EDT) Urine Urine specimen obtained by clean catch procedure / Unknown 05/13/2025 05/13/2025 Comment:UACC Narrative [facility] - 05/15/2025 1:11 PM EDT Streptococcus viridans group Quant 10,000 to 50,000 cfu/mL Susc N/A Susceptibility not routinely performed on this isolate. Specimen Source: Urine clean catch us Generic External Data Provider LAB MICROBIOLOGY - GENERAL ORDERABLES Final Result Performing Organization Address City/[facility] Co de Phone Number [facility] [address] [place] [address] [phone] * SARS-CoV-2 RNA, Influenza A/B, and RSV RNA, Ql NAAT (04/03/2025 11:59 AM EDT) Influenza A PCR NEGATIVE Negative [facility] Influenza B PCR NEGATIVE Negative [facility] Resp Syncy Virus RNA Qual PCR NEGATIVE Negative [facility] SARS COV2 PCR NEGATIVE Negative [facility] Comment:All test results mus t be [...] use by authorized laboratories.Testing performed on the mInfo GeneXpert utilizingreal-time RT-PCR.All SARS CoV2 and positive influenza A/B results arereported to [facility]. 04/03/2025 11:5 9 AM EDT 04/03/2025 12:03 PM EDT us Generic External Data Provider LAB MICROBIOLOGY - GENERAL ORDERABLES Final Result Performing Organization Address [facility] de Phone Number [facility] [address] [place] [address] [phone] * XR Chest 1 View (03/22/2025 1:15 PM EDT) Anatomical Region Laterality Modality Chest Radiographic Edilia ging 03/22/2025 1:15 PM EDT Narrative 03/22/2025 1:30 PM EDT [address] [address] XRay Report Signed Patient: Toni Keys MR#: [id number] : 1935 Acct:[id number] Age/Sex: 89 / M ADM Date: 03/22/25 Loc: HO.ED Attending Dr: Ordering Physician: Fadia Terry Date of Service: 03/22/25 Procedure(s): XR chest 1V Accession Number(s): [id number] cc: Fadia Terry; Jolly Constantino MD Reason [...] 03/22/25 1328 DD/ 1315 TD/TT: 03/22/25 1323 Media Developer: Procedure Note Donotuseinterpreter, Image - 03/22/[address] [address] XRay Report Signed Patient: Toni Keys MR#: [id number] : 1935cct:[id number] Age/Sex: 89 / MADM Date: 03/22/25 Loc: .ED Attending Dr: Ordering Physician: Fadia Terry Date of Service: 03/22/25 Procedure(s): XR chest 1V Accession Number(s): [id number] cc: Fadia Terry; Jolly Constantino MD Reason [...] 03/22/25 1328 DD/ 1315 TD/TT: 03/22/25 1323 Media Developer: [facility] External Provider IMG XR PROCEDURES Final Result * Urinalysis w/reflex microscopic (03/22/2025 1:13 PM EDT) Color Urine Yellow [facility] Appearance Urine Clear [facility] PH >=9.0 5.0 - 9.0 [facility] Glucose Urine UA Negative Negative mg/dL [facility] Urine Blood Negative Negative [facility] Specific Connelly - Urine 1.010 1.005 - 1.025 [facility] Urine Protein Negative Neg-Trace mg/dL [facility] Urine Ketones Negative Negative mg/dL [facility] Nitrite Urine Negative Negative [facility] Leukocyte Esterase Urine Negative Negative [facility] 03/22/2025 1:13 PM EDT 03/22/2025 1:18 PM EDT Narrative [facility] - 03/22/2025 1:24 PM EDT [id number], Clean Catch Generic External Data Provider LAB URINE ORDERAB LES Final Result Performing Organization Address [facility] Co de Phone Number [facility] [address] [place] [address] [phone] * (ABNORMAL) Sed Rate by Modified Bennieergren (03/22/2025 1:05 PM EDT) Erythrocyte Sedimentation Rate 69(H) 0 - 15 MM/HR [facility] Comment:Patients with polycy themia and many hemoglobin abnormalitiesmay have depressed sed rates whereas patients with anemiamay have elevated sed rates. 03/22/2025 1:05 PM EDT 03/22/2025 1:32 PM EDT Generic External Data Provider LAB BLOOD ORDERAB LES Final Result Performing Organization Address [facility] de Phone Number [facility] [address] [place] [phone] * (ABNORMAL) C-reactive Protein (03/22/2025 1:05 PM EDT) C Reactive Protein 2.90(H) < or = 0.50 mg/dL [facility] 03/22/2025 1:05 PM EDT 03/22/2025 1:08 PM EDT Generic External Data Provider LAB BLOOD ORDERAB LES Final Result Performing Organization Address [facility] Co de Phone Number [facility] [address] [place] [phone] * CT Lumbar Spine w/o Contrast (03/22/2025 11:41 AM EDT) Anatomical Region Laterality Modality Spine, L-spine Computed Tomogra phy 03/22/2025 11:4 1 AM EDT Narrative 03/22/2025 12:36 PM EDT [address] [address] [address] Scan Report Signed Patient: Theresa MeehanToni MR#: [id number] : 1935 Acct:[id number] Age/Sex: 89 / M ADM Date: 03/22/25 Loc: HO.ED Attending Dr: Ordering Physician: Fadia Terry Date of Service: 03/22/25 Procedure(s): CT lumbar spine wo IV con Accession Number(s): [id number] cc: Fadia Terry; Jolly Constantino MD Report Number: [id number]: Total DLP = 429.00 mGy-cm Reason for [...] on the coronal series. There are 5 woo-yto-xsbupjb lumbar segments. There is stable moderate superior [...] 03/22/25 1233 DD/ 1141 TD/TT: 03/22/25 1151 Media Developer: Procedure Note Donotuseinterpreter, Image - 03/22/[address] [address] [address] Scan Report Signed Patient: Toni Keys MR#: [id number] : 8Acct:[id number] Age/Sex: 89 / MADM Date: 03/22/25 Loc: HO.ED Attending Dr: Ordering Physician: Fadia Terry Date of Service: 03/22/25 Procedure(s): CT lumbar spine wo IV con Accession Number(s): [id number] cc: Fadia Terry; Jolly Constantino MD Report Number: [id number]: Total DLP = 429.00 mGy-cm Reason for [...] on the coronal series. There are 5 ggg-apu-okmnobo lumbar segments. There is stable moderate superior [...] 03/22/25 1233 DD/ 1141 TD/TT: 03/22/25 1151 Media Developer: [facility] External Provider IMG CT PROCEDURES Final Result * Albumin, Random Urine W/Creatinine (02/27/2025 2:39 PM EDT) Creatinine, Urine 74.26 mg/dL [facility] Microalbumin Urine 7.0 mg/L [facility] Microalbum Creatinine Ratio Ur 9.4 <30 ug/mg cr [facility] Comment:Albumin/Creatinine R atio Reference Ranges: Normal: < 30 ug/mg creatinine Microalbuminuria: 30 - 300 ug/mg creatinineClinical Albuminuria: > 300 ug/mg creatinine Urine 02/27/2025 2:39 PM EDT 02/27/2025 4:36 PM EDT Jolly Constantino MD LAB URINE ORDERABLES Final Resul t [facility] [address] [place] [phone] * Lipid Panel, Standard (09/17/2024 1:26 PM EST) Triglycerides 120 <150 mg/dL [facility] Comment:Desirable Triglyceri de: less than 150 mg/dLBorderline High Triglyceride 150-199 mg/dLHigh Triglyceride: 200-499 mg/dLVery High Triglyceride: greater than or equal to 5OO mg/dL Cholesterol 113 <200 mg/dL [facility] Comment:Desirable Cholestero l: less than 200 mg/dLBorderline High Cholesterol: 200-239 mg/dLHigh Cholesterol: greater than 239 mg/dL LDL Cholesterol Calculated 47 <100 mg/dL [facility] Comment:Desirable LDL: less than 100 mg/dLNear Optimal/Above Optimal LDL: 110- 129 mg/dLBorderline High LDL: 130-159 mg/dLHigh LDL: 160-189 mg/dLVery High LDL: greater than or equal to 190 mg/dL HDL Cholesterol 42 >40 mg/dL [facility] Comment:Desirable HDL: great er than 40 mg/dL Note: This HDL assay may give artificially low results in patients with liver disease. 09/17/2024 1:26 PM EST 09/17/2024 1:34 PM EST Generic External Data Provider LAB BLOOD ORDERAB LES Final Result [facility] [address] [place] [address] [phone] * Diabetes Eye Exam (12/08/2023) Eye Exam Normal Normal 12/08/2023 Historical Provider HEALTH MAINTENANCE Final Result from Last 3 Months or Most Recently Relevant to Health Maintenance Additional Health Concerns Active Problems Noted Date Diagnosed Date Help patients manage their type 2 diabetes 05/29 Weekly blood pressure task 05/29/2025 Help patients manage their type 2 diabetes 05/29 Patient has chronic kidney disease 05/29/2025 Weekly blood pressure task 05/29/2025 Patient has chronic kidney disease 05/29/2025 Weekly blood pressure task 05/29/2025 Weekly blood pressure task 05/29/2025 Patient has chronic kidney disease 05/29/2025 Patient has chronic kidney disease 05/29/2025 Weekly blood pressure task 05/30/2025 Weekly blood pressure task 05/30/2025 Patient has chronic kidney disease 05/30/2025 Patient has chronic kidney disease 05/30/2025 Weekly blood pressure task 06/10/2025 Weekly blood pressure task 06/10/2025 Patient has chronic kidney disease 06/10/2025 Patient has chronic kidney disease 06/10/2025 Weekly blood pressure task 06/10/2025 Weekly blood pressure task 06/10/2025 Patient has chronic kidney disease 06/10/2025 Patient has chronic kidney disease 06/10/2025 Insurance FORMERLY [facility] RETIREMENT OPTIONS (O D-SNP) [facility] Advance Directives Documents on File Type Date Recorded 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
--- OUTSIDE RECORDS SUMMARY | 2025-06-19 14:59 | XMS_ITS | Encounter Summary ---
Author Organization [employer] Address [address] [facility] 7t [place] [address] Care Team Providers Care Store Mgr Name Role Phone Jolly [place] MD Primary Care Provider Javier Benton PharmD Unavailable [phone] Reason for Referral * Consultation (Routine) - Authorized Specialty Diagnoses / Procedures Referred By Contac t Referred To Contact Pharmacy Diagnoses Primary hypertension Type 2 diabetes mellitus with hyperglycemia, without long-term current use of insulin ([facility]) Jolly [place] MD [address] [place] [address] Phone: tel: fax: Referral ID Status Reason Start Date Expiration Date Visits Requested Visits Authorized [id number] Authorized Consult and Treat 02/05/2025 02/05/2026 6 6 Encounter Details Date Type Department Care Team (Late st Contact Info) Description 02/05/2025 Orders Only [facility] [address] [place], [place] [phone] Jolly [place] MD [address] [place], [place] [phone] Primary hypertension (Primary Dx); Type 2 diabetes [...] Description 06/24/2025 1:00 PM EST Medication Management [facility] [address] [place] [phone] Javier Benton, AreliD [address] [place] [phone] 07/09/2025 3:30 PM EST Office Visit [facility] [address] [place] [phone] Jolly [place] MD [address] [place] [phone] Scheduled Referrals Name Type Priority Associated Diagnoses Orde r Schedule Referral to Pharmacy CDTM Outpatient Referral Routine Primary hypertension Type 2 diabetes mellitus with hyperglycemia, without long-term current use of insulin ([facility]) Ordered: 02/05/2025 documented as of this encounter [...] AM EDT Narrative 02/20/2025 11:58 AM EDT [address] [address] XRay Report Signed Patient: Toni Keys MR#: [id number] : 1935 Acct:[id number] Age/Sex: 89 / M ADM Date: 02/20/25 Loc: HO.ED Attending Dr: Ordering Physician: Moira Sanchez Date of Service: 02/20/25 Procedure(s): XR hip RT w PEL1V Accession Number(s): [id number] cc: Moira Sanchez; Jolly [place] MD EXAMINATION: [...] 02/20/25 1155 DD/ 1050 TD/TT: 02/20/25 1149 Linux Architect: Procedure Note Donotuseinterpreter, Image - 02/20/2025 [place] [address] XRay Report Signed Patient: Toni Keys MR#: [id number] : 8Acct:[id number] Age/Sex: 89 / MADM Date: 02/20/25 Loc: HO.ED Attending Dr: Ordering Physician: Moira Sanchez Date of Service: 02/20/25 Procedure(s): XR hip RT w PEL1V Accession Number(s): [id number] cc: Moira Sanchez; Jolly [place] MD EXAMINATION: [...] 02/20/25 1155 DD/ 1050 TD/TT: 02/20/25 1149 Linux Architect: [facility] External Provider IMG XR PROCEDURES Final Result documented in this encounter Visit Diagnoses Diagnosis Primary hypertension- Primary Unspecified essential hypertension Type 2 diabetes mellitus with hyperglycemia, without long-term current use of insulin (HCC) documented in this encounter Additional Health Concerns Assessment Noted Time PHQ-9 Depression Total Score: 1 08/13/19 3:11 PM EST documented as of this encounter Care Teams Store Mgr Relationship Specialty Start Date End Date Jolly [place] MD [address] [place] [phone] PCP - General Family Medicine 06/29/12 Javier Benton, AreliD [address] [place] [phone] Pharmacist Internal Medicine 01/14/23 [facility] 04/21/25 documented as of this encounter
--- OUTSIDE RECORDS SUMMARY | 2025-06-19 14:59 | XMS_ITS | Encounter Summary ---
Author Organization [employer] Address [address] [facility] 7t [place] [address] Care Team Providers Care Pricing Manager Name Role Phone Jolly [place] MD Primary Care Provider [phone] Javier Benton PharmD Unavailable [phone] Reason for Referral * Consultation (Routine) - Canceled Specialty Diagnoses / Procedures Referred By Contac t Referred To Contact Pharmacy Diagnoses Primary hypertension Type 2 diabetes mellitus with hyperglycemia, without long-term current use of insulin ([facility]) Jolly [place] MD [address] [place] [address] Phone: tel: fax: Referral ID Status Reason Start Date Expiration Date V isits Requested Visits Authorized [id number] Canceled Consult and Treat 05/29/2024 05/29/2025 6 6 Encounter Details Date Type Department Care Team (Late st Contact Info) Description 05/29/2024 Orders Only [facility] [address] [place] [phone] Jolly [place] MD [address] [place] [address] [phone] Primary hypertension (Primary Dx); Type 2 diabetes mellitus with hyperglycemia, without long-term current use of insulin ([facility]/HCC) Social History Tobacco Use Types Packs/Day Years [...] Description 06/24/2025 1:00 PM EST Medication Management [address] [address] Javier Benton, PharmD [address] [place] [phone] 07/09/2025 3:30 PM EST Office Visit [facility] [address] [place] [phone] Jolly [place] MD [address] [place] [phone] Scheduled Referrals Name Type Priority Associated Diagnoses Orde r Schedule Referral to Pharmacy CDTM Outpatient Referral Routine Primary hypertension Type 2 diabetes mellitus with hyperglycemia, without long-term current use of insulin ([facility]) Ordered: 05/29/2024 documented as of this [...] documented as of this encounter Care Teams Pricing Manager Relationship Specialty Start Date End Date Jolly [place] MD [address] [place] [address] PCP - General Family Medicine 06/29/12 Javier Benton, PharmD [address] [place] [address] Pharmacist Internal Medicine 01/14/23 [facility] 04/21/25 documented as of this encounter
--- OUTSIDE RECORDS SUMMARY | 2025-06-19 14:59 | XMS_ITS | Encounter Summary ---
Author Organization [employer] Address [address] [facility] 7t [place] [address] Care Team Providers Care Stockroom Helper Name Role Phone Jolly [place] MD Primary Care Provider [phone] Javier Benton PharmD Unavailable [phone] Encounter Details Date Type Department Care Team (Late st Contact Info) Description 06/07/2022 Abstract [facility] [address] [place] [address] Jolly [place] MD [address] [place] [address] Social History Tobacco Use Types Packs/Day Years [...] Description 06/24/2025 1:00 PM EST Medication Management [address] [address] Javier Benton, PharmD [address] [place] [address] 07/09/2025 3:30 PM EST Office Visit [address] [address] Jolly [place] MD [address] [place] [phone] documented as of this encounter Visit Diagnoses Not on filedocumented in this encounter Care Teams Stockroom Helper Relationship Specialty Start Date End Date Jolly [place] MD [address] [place], [place] [phone] PCP - General Family Medicine 06/29/12 Javier Benton PharmD [address] [place] [address] Pharmacist Internal Medicine 01/14/23 [facility] 04/21/25 documented as of this encounter
--- OUTSIDE RECORDS SUMMARY | 2025-06-19 14:59 | XMS_ITS | Encounter Summary ---
Author Organization [employer] Address [address] [facility] 7t [place] [address] Care Team Providers Care Cloth Shearing Supervisor Name Role Phone Jolly [place] MD Primary Care Provider [phone] Javier Benton PharmD Unavailable [phone] Encounter Details Date Type Department Care Team ([facility] st Contact Info) Description 12/14/2023 Orders Only [facility] [address] [place], [place] [phone] Jolly [place] MD [address] [place], [place] [phone] Social History Tobacco Use Types Packs/Day Years [...] Description 06/24/2025 1:00 PM EST Medication Management [facility] [address] [place] [phone] Javier Benton PharmD [address] [place] [phone] 07/09/2025 3:30 PM EST Office Visit [address] [phone] Jolly [place] MD [address] [place] [phone] documented as of this encounter Goals Goal [...] documented as of this encounter Care Teams Cloth Shearing Supervisor Relationship Specialty Start Date End Date Jolly [place] MD [address] [place] [address] [phone] PCP - General Family Medicine 06/29/12 Javier Benton PharmD [address] [place] [phone] Pharmacist Internal Medicine 01/14/23 [facility] 04/21/25 documented as of this encounter
--- OUTSIDE RECORDS SUMMARY | 2025-06-19 14:59 | XMS_ITS | Encounter Summary ---
Author Organization [employer] Address [address] [facility] 7t [place] [address] Care Team Providers Care Mop Man Name Role Phone Jolly [place] MD Primary Care Provider [phone] Javier Benton PharmD Unavailable [phone] Encounter Details Date Type Department Care Team ([facility] st Contact Info) Description 03/07/2024 Orders Only [facility] [address] [place], [place] [phone] Jolly [place] MD [address] [place], [place] [phone] Social History Tobacco Use Types Packs/Day Years [...] Description 06/24/2025 1:00 PM EST Medication Management [facility] [address] [place] [phone] Javier Benton PharmD [address] [place] [phone] 07/09/2025 3:30 PM EST Office Visit [address] [phone] Jolly [place] MD [address] [place] [phone] documented as of this encounter Goals Goal [...] documented as of this encounter Care Teams Mop Man Relationship Specialty Start Date End Date Jolly [place] MD [address] [place] [address] [phone] PCP - General Family Medicine 06/29/12 Javier Benton PharmD [address] [place] [phone] Pharmacist Internal Medicine 01/14/23 [facility] 04/21/25 documented as of this encounter
--- OUTSIDE RECORDS SUMMARY | 2025-06-19 14:59 | XMS_ITS | Patient Health Record ---
Author Organization [facility] Billing Info Address [address] [place] [address] [place] [address] Care Team Providers Care Enforcement Officer Name Role Phone Nadia Black Primary Care Provider CRIS Lr Unavailable [phone] Allergies No Known Allergies Reason For Referral [...] Problem Status W/U Status Risk Notes Problem [id number] Urinary frequenc y (R35.0) Active confirmed Problem [id number] Prostate cancer (C61) Active confirmed Problem [id number] Urge incontinenc e of urine (N39.41) Active confirmed Plan Of Treatment No Information Insurance Providers Payer Name Payer Address Payer Phone Subscriber Number Group Number Insured Name Patient Relationship to Insured Coverage Start Date Coverage End Date [facility] [address] TELMA BOATENG [id number] Vel Manuel pichardoToni Self - patient is the insured 8 [facility] [address] [place], [place] [id number] Sadavidal Manuel pichardoToni Self - patient is the insured 1 1 MEDICARE [place] PART B [address] [facility] TELMA YOUNG [id number] MartinToni severino Self - patient is the insured Medical (General) History Medical History History ICD Code Prostate cancer Diabetes mellitus Hypertension Hyperlipidemia Constipation UTI Hemriods Surgical History Surgery Date(Month/Year) prostate circumcision cataract surgery
--- OUTSIDE RECORDS SUMMARY | 2025-06-19 14:59 | XMS_ITS | Encounter Summary ---
Author Organization [employer] Address [address] [facility] 7t [place] [address] Care Team Providers Care Gm Video Name Role Phone Jolly [place] MD Primary Care Provider [phone] Javier Benton PharmD Unavailable [phone] Reason for Visit * Reason Comments Med Refill Encounter Details Date Type Department Care Team ([facility] st Contact Info) Description 03/11/2024 Refill [facility] [address] [place], [place] [phone] Jolly [place] MD [address] [place], [place] [phone] Helicobacter pylori gastrointestinal tract infection Social History [...] Description 06/24/2025 1:00 PM EST Medication Management [address] [address] Javier Benton PharmD [address] [place] [phone] 07/09/2025 3:30 PM EST Office Visit [facility] [address] [place] [phone] Jolly [place] MD [address] [place] [address] documented as of this encounter Goals Goal [...] documented as of this encounter Care Teams Gm Video Relationship Specialty Start Date End Date Jolly [place] MD [address] [place] [address] [phone] PCP - General Family Medicine 06/29/12 Javier Benton, Marc [address] [place] [address] [phone] Pharmacist Internal Medicine 01/14/23 [facility] 04/21/25 documented as of this encounter
--- OUTSIDE RECORDS SUMMARY | 2025-06-19 14:59 | XMS_ITS | Encounter Summary ---
Author Organization [employer] Address [address] [facility] 7t [place] [address] Care Team Providers Care Salvage Inspector [employer] Name Role Phone Jolly [place] MD Primary Care Provider [phone] Javier Benton PharmD Unavailable [phone] Reason for Visit * Reason Onset Date Comments Hospital Follow-up 04/10/2025 Encounter Details Date Type Department Care Team ([facility] st Contact Info) Description 04/10/2025 Telephone [facility] [address] [place], [place] [phone] Jolly [place] MD [address] [place], [place] [phone] Hospital Follow-up Social History Tobacco Use Types [...] - 04/10/2025 10:28 AM EDT Tc from [place] with lokesh [facility] requesting a HDF appt. Hospital: [facility] Date of admission: Lokes[facility] [place](04/04/2025) Discharge date: 04/11/2025 Diagnosed: Sacrum fracture *Send message to [place] Clinical Care Coordinators Contact pt at [phone] documented in this encounter Plan of Treatment Upcoming Encounters Date Type Department Care Team (Late st Contact Info) Description 06/24/2025 1:00 PM EST Medication Management [facility] [address] [place] [phone] Javier Benton, PharmD [address] [place] [phone] 07/09/2025 3:30 PM EST Office Visit [facility] [address] [place] [phone] Jolly [place] MD [address] [place] [phone] documented as of this encounter Goals Goal [...] documented as of this encounter Care Teams [employer] Relationship Specialty Start Date End Date Jolly [place] MD [address] [place] [address] PCP - General Family Medicine 06/29/12 Javier Benton, AreliD [address] [place] [address] Pharmacist Internal Medicine 01/14/23 [facility] 04/21/25 documented as of this encounter
--- OUTSIDE RECORDS SUMMARY | 2025-06-19 14:59 | XMS_ITS | Encounter Summary ---
Author Organization [employer] Address [address] [facility] 7t [place] [address] Care Team Providers Care Support Representative Name Role Phone Jolly [place] MD Primary Care Provider [phone] Javier Benton PharmD Unavailable [phone] Reason for Visit * Reason Onset Date Comments Hospital Follow-up 03/28/2025 Encounter Details Date Type Department Care Team ([facility] st Contact Info) Description 03/28/2025 Telephone [facility] [address] [place], [place] [phone] Jolly [place] MD [address] [place], [place] [phone] Hospital Follow-up Social History Tobacco Use Types [...] from pt requesting a HDF appt. Hospital: [facility] [place] Date of admission: 03/23 Discharge date: 04/02 Diagnosed: fracture in hip *Send message to [place] Clinical Care Coordinators documented in this encounter Plan of Treatment Upcoming Encounters Date Type Department Care Team (Late st Contact Info) Description 06/24/2025 1:00 PM EST Medication Management [facility] [address] [place] [phone] Javier Benton, PharmD [address] [place] [phone] 07/09/2025 3:30 PM EST Office Visit [facility] [address] [place] [phone] Jolly [place] MD [address] [place] [phone] documented as of this encounter Goals Goal [...] documented as of this encounter Care Teams Support Representative Relationship Specialty Start Date End Date Jolly [place] MD [address] [place] [address] PCP - General Family Medicine 06/29/12 Javier Benton, AreliD [address] [place] [address] Pharmacist Internal Medicine 01/14/23 [facility] 04/21/25 documented as of this encounter
== END 2025-06-19 12:46 | disposition home or self-care (01) ==
LOC: HO.US 12:45
PROVIDERS: PCP Family Medicine; Visit Provider Family Medicine
DX: E11.65 Type 2 diabetes mellitus with hyperglycemia (principal); N50.89 Other specified disorders of the male genital organs; R60.0 Localized edema; Z85.46 Personal history of malignant neoplasm of prostate
CPT/HCPCS: 76870; 93970

== ENCOUNTER → 2025-06-19 12:47 | Outpatient (BNV) | payer OTHER, SELFPAY | PROVIDERS: PCP Family Medicine; Visit Provider Radiology Diagnostic Radiology | DX: R60.0 Localized edema (principal); N49.2 Inflammatory disorders of scrotum | CPT/HCPCS: 76870; 93970 ==

== ENCOUNTER 2025-06-27 13:07 | Emergency (ER) | payer OTHER, SELFPAY ==
--- NOTE | ~2025-06-27 | XR_ITS ---
EXAMINATION: XR KNEE, LEFT CLINICAL INFORMATION: pain COMPARISON: None available. TECHNIQUE: Four views of the left knee. FINDINGS: No fracture, dislocation, or suspicious bone lesion. There is normal alignment. There is mild lateral and mild to moderate medial compartment joint space narrowing, in keeping with osteoarthrosis. Subtle chondrocalcinosis noted. There is spurring of the tibial spines. There is no significant joint effusion identified. No soft tissue abnormality. XR/XR knee LT 4V IMPRESSION: 1. No acute bony or soft tissue abnormalities. No joint effusion. 2. 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 3. Subtle chondrocalcinosis noted suggesting underlying CPPD. Electronically signed by: Simón Aden MD 06/27/2025 02:28 PM [facility]
--- NOTE | ~2025-06-27 | CT_ITS ---
CLINICAL HISTORY: right flank pain renal colic CT abdomen and pelvis without contrast Comparison: CT/SR - CT ABDOMEN PELVIS WITH IV CONTRAST - 03/11/25 15:43 EDT Findings: Limited evaluation without intravenous contrast. No consolidation or pleural effusion. Mild bilateral basilar subsegmental atelectasis/scarring. Previous cholecystectomy. No significant biliary ductal dilatation. Unenhanced liver and spleen demonstrate no focal abnormality. Unenhanced pancreas appears within normal limits. Adrenal glands are normal. No renal or ureteral stone and no hydronephrosis or hydroureter. Stable 2.3 cm left renal cyst. Mild nonspecific perinephric stranding. No perinephric fluid. No bowel obstruction, pneumoperitoneum, or pneumatosis. No free fluid. Appendix is unremarkable. Significant colonic diverticulosis. No evidence of acute diverticulitis. Rectal wall thickening may represent proctitis. Urinary bladder wall thickening and inflammatory stranding in the pelvis suggestive of cystitis. Previous prostatectomy. Penile implant appears stable. Atherosclerotic vascular disease with no aneurysm of the abdominal aorta. Diffuse demineralization. Stable moderate compression fracture of L3. New mild compression fracture of T12 vertebral body with no retropulsion. IMPRESSION: 1. Findings suggestive of cystitis. Correlate with urinalysis. No renal or ureteral stones. 2. Rectal wall thickening, correlate with proctitis. 3. New mild compression fracture of T12 vertebral body with no retropulsion. This is of indeterminate age. 4. Additional stable findings as described. This document has been electronically signed by: Lidia Branham MD on 06/28/2025 00:37:01
--- NOTE | ~2025-06-27 | XR_ITS ---
EXAMINATION: XR LUMBOSACRAL SPINE CLINICAL INFORMATION: pain COMPARISON: Correlated to CT dated March 22, 2025. TECHNIQUE: AP and lateral views. FINDINGS: Inferior endplate compression deformity representing 40% volume loss at L3. Wedge-shaped compression deformity of the superior endplate of T12 representing 30% volume loss without retropulsion. Multilevel marginal osteophyte formation and endplate sclerosis. Facet joint hypertrophy at L5-S1. Vascular clips right upper quadrant abdomen and lower pelvis. Osteopenia versus osteoporosis. XR/XR lumbar spine 2-3V IMPRESSION: Wedge-shaped compression deformity at T12, acute to subacute. Old inferior endplate compression deformity, L3. Multilevel thoracolumbar spondylosis. Electronically signed by: Alin Hurt MD 06/27/2025 02:28 PM [facility]NOFRE
[2025-06-27 13:18] VITALS: BP 172/98; PULSE 85; O2SAT 94
[2025-06-27 13:30] VITALS: BP 137/62; PULSE 83; RESP 18; TEMP 36.6; O2SAT 99; BMI 26.6
--- NOTE | 2025-06-27 13:33 | ED.BACK ---
HPI - Back Pain/Injury General Chief Complaint: Back Pain/Injury Stated Complaint: LOW BACK/L KNEE PAIN X2W,PAIN W/AMB PER EMS Time Seen by Provider: 06/27/25 22:09 Source: patient Limitations: language barrier History of Present Illness ED Provider: Fatmata Price PA-C HPI Narrative: 89-year-old male with a history of hypertension, hyperlipidemia, diabetes, prior prostate cancer, neurogenic bladder and chronic anemia who presents with low back pain and left knee pain x3 weeks. Pain over right flank and right lumbar region is nonradiating, unable to describe the nature of his discomfort. Denies urinary retention, bowel incontinence, weakness of lower extremities or paresthesia. Denies dysuria, hematuria or history of kidney stones. Denies abdominal pain, nausea vomiting. In regard to the knee pain, there was no preceding injury, no trauma. The patient is ambulatory. Related Data Home Medications ?Medication ?Instructions ?Recorded ?Confirmed amlodipine 5 mg tablet 5 mg PO DAILY 04/12/22 04/03/25 aspirin 81 mg tablet,delayed 81 mg PO DAILY 04/12/22 04/03/25 release atorvastatin 20 mg tablet 20 mg PO BEDTIME 04/12/22 04/03/25 blood sugar diagnostic (FreeStyle #10 ea 04/12/22 08/03/23 Lite Strips) ferrous sulfate 325 mg (65 mg 325 mg PO BID 04/12/22 04/03/25 iron) tablet (FeroSul) lancets 33 gauge (TRUEplus Lancets) #100 ea 04/12/22 08/03/23 pioglitazone 45 mg tablet 45 mg PO DAILY@1900 04/12/22 04/03/25 ascorbic acid (vitamin C) 500 mg 500 mg PO BEDTIME 02/17/24 04/03/25 tablet (Vitamin C) magnesium oxide 400 mg (241.3 mg 400 mg PO DAILY@1200 09/17/24 04/03/25 magnesium) tablet acetaminophen 500 mg tablet 500 - 1,000 mg PO Q8H PRN fever 04/03/25 04/03/25 cyanocobalamin (vitamin B-12) 1,000 mcg PO BEDTIME 04/03/25 04/03/25 1,000 mcg tablet furosemide 20 mg tablet 20 mg PO QAM 04/03/25 04/03/25 metformin 750 mg tablet,extended 750 mg PO BID 04/03/25 04/03/25 release 24 hr mirabegron 50 mg tablet,extended 50 mg PO DAILY 04/03/25 04/03/25 release 24 hr (Myrbetriq) Previous Rx's ?Medication ?Instructions ?Recorded compression socks, medium #2 ea 02/20/25 lidocaine 5 % topical patch 2 patch topical DAILY #15 ea 03/11/25 furosemide 40 mg tablet (Lasix) 40 mg PO BID 7 days #14 tabs 05/13/25 amoxicillin 500 mg-potassium 1 tab PO BID #14 tabs 05/17/25 clavulanate 125 mg tablet (Augmentin) ketorolac 10 mg tablet 10 mg PO Q6H PRN pain #20 tabs 06/28/25 methocarbamol 750 mg tablet 750 mg PO Q8H PRN pain, moderate 06/28/25 #15 tabs sulfamethoxazole 800 1 tab PO Q12H #13 tabs 06/28/25 mg-trimethoprim 160 mg tablet (Bactrim DS) Allergies Allergy/AdvReac Type Severity Reaction Status Date / Time cephalexin Allergy Intermediate Constipatio Verified 06/27/25 13:32 n oxycodone (From Percocet) AdvReac Mild VOMITING/DI Verified 06/27/25 13:32 ZZINES percocet Allergy Unknown nausea/dizz Uncoded 05/13/25 13:35 iness Review of Systems Review of Systems: Yes all other systems are reviewed and are negative Constitutional: Constitutional: Denies fatigue and Denies fever(s) Cardiovascular: Cardiovascular: Denies chest pain and Denies dyspnea Respiratory: Respiratory: Denies dyspnea Gastrointestinal: Gastrointestinal: Denies abdominal pain, Denies nausea and Denies vomiting Genitourinary: Genitourinary: Denies hematuria, Denies dysuria and Denies flank pain Musculoskeletal: Musculoskeletal: Reports back pain, Denies muscle weakness, Denies numbness, Denies radiating pain into limb and Denies tingling Integumentary/Breasts: Skin/Breast: Denies erythema and Denies skin swelling Neurologic: Denies numbness and Denies tingling Endocrine: Endocrine: Denies fatigue PMF Past Medical History Attestation statement: The following information was validated with the patient. Medical History Tubular adenoma of colon Neurogenic bladder Chronic anemia HTN (hypertension) Prostate cancer Hypercholesterolemia Diabetes mellitus Renal cyst Choledocholithiasis Diverticulosis Surgical History History of colonoscopy History of hernia surgery H/O prostatectomy Family History Family History Unknown Cancer Social History Social History Household Members: None Housing: Apartment Do you presently have visiting nurse or other home services: Yes (Meals on wheels) Alcohol intake: never Patient Tobacco Use Status: Never used Tobacco Advance Directives: Yes Advance Directives on File: Yes Advance Directives Date on File: 02/22/24 service: No Current occupational status: retired Current occupation: right handed Physical Exam Vital Signs: Vital Signs: Last Vital Signs Temp 97.6 F 06/28/25 01:28 Pulse 87 06/28/25 01:28 Resp 18 06/28/25 01:28 BP 136/65 06/28/25 01:28 Pulse Ox 97 06/28/25 01:28 O2 Del Method Room Air 06/28/25 01:28 BMI result Body Mass Index 26.6 Const: Other: Alert Orientation/consciousness: patient oriented x3 Resp: Effort & Inspection: normal respiratory effort Cardio: Other: normal peripheral perfusion GI: Other: soft nontender no guarding : General: Yes no CVA tenderness Back/Spine/Pelvis: Back: no CVA tenderness Skin: Other: warm dry no rash Neuro: General: patient oriented x3, gait normal, no focal motor deficits and CN's II-XI intact bilaterally Extrem: Other: full flexion and extension of the left knee there was no overlying erythema warmth or swelling Psych: Other: cooperative Course Course Course Narrative: This is an RME: Additional HPI, ROS, PE not included below will be deferred to primary provider. RME assessment and note performed by: Kasia Hernández PA-C This is a 89-year-old male, with a past medical history of prostate cancer, HTN, DM, who presents emergency department with concerns of left knee pain, low back pain, and black stool. Reports he went to his primary care physician and they prescribed him some pain medication, states that the pain medication is not helping. Back pain radiates into his belly. Plan: Labs, knee pain, back pain, further ER eval needed Medications Administered Discontinued Medications Generic Name Dose Route Start Last Admin Trade Name Fabio PRN Reason Stop Dose Admin Ketorolac Tromethamine 15 mg 06/27/25 23:14 06/28/25 00:28 Ketorolac Tromethamine 15 Mg/Ml Vial IM 06/27/25 23:15 15 mg ONCE ONE Administration Methocarbamol 750 mg 06/27/25 23:14 06/28/25 00:28 Methocarbamol 750 Mg Tablet PO 06/27/25 23:15 750 mg ONCE ONE Administration Trimethoprim/Sulfamethoxazole 1 tab 06/28/25 00:40 06/28/25 00:44 Sulfamethox/Trimeth 800/160 Tablet PO 06/28/25 00:41 1 tab ONCE ONE Administration Medical Decision Making Medical Decision Making [facility] Narrative: 89-year-old male with a history of hypertension, hyperlipidemia, diabetes, prior prostate cancer, neurogenic bladder and chronic anemia who presents with low back pain and left knee pain x3 weeks. Pain over right flank and right lumbar region is nonradiating, unable to describe the nature of his discomfort. Denies urinary retention, bowel incontinence, weakness of lower extremities or paresthesia. Denies dysuria, hematuria or history of kidney stones. In regard to the knee pain, there was no preceding injury, no trauma. The patient is ambulatory. problem: Age, hypertension, diabetes, neurogenic bladder History: Per patient I have considered the following differential diagnoses: Renal colic, pyelonephritis, UTI, lumbar strain, lumbar radiculopathy, compression fracture, cauda equina, fracture, dislocation, septic joint Plan: Screening labs including urinalysis, x-ray lumbar spine and knee obtained from triage, the patient has significant arthritic changes of the knee, without acute injury, on exam, there was no evidence of a septic joint. In regard to the lumbar film again he has degenerative changes including old compression fractures, nothing acute. With the his screening labs, it appears he has a UTI, he is passing hematuria, I am concerned for potential renal colic. Obtaining a CT scan of the abdomen and pelvis. Doubtful to be pyelo given no CVA tenderness he is afebrile. I have independently reviewed the following tests: Labs: No leukocytosis, not anemic, no electrolyte abnormality, urine appears infected passing hematuria x-ray lumbar spine: XR/XR lumbar spine 2-3V IMPRESSION: Wedge-shaped compression deformity at T12, acute to subacute. Old inferior endplate compression deformity, L3. Multilevel thoracolumbar spondylosis. X-ray knee: XR/XR knee LT 4V IMPRESSION: 1. No acute bony or soft tissue abnormalities. No joint effusion. 2. 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 3. Subtle chondrocalcinosis noted suggesting underlying CPPD. Abdomen and pelvis: IMPRESSION: 1. Findings suggestive of cystitis. Correlate with urinalysis. No renal or ureteral stones. 2. Rectal wall thickening, correlate with proctitis. 3. New mild compression fracture of T12 vertebral body with no retropulsion. This is of indeterminate age. 4. Additional stable findings as described. Differential Diagnosis Differential Diagnoses: The differential diagnosis associated with the presentation includes see [facility] Admission/Observation Consideration of admission/observation: Escalation of care including admission/observation considered not applicable Lab Data [facility] Lab Attestation statement: I reviewed the patient's lab results. 06/27/25 13:59 06/27/25 13:59 Labs: Lab Results 06/27/25 06/27/25 Range/Units 13:59 22:35 WBC 6.0 (4.8-10.8) X10*3/uL RBC 4.00 L (4.60-5.80) X10*6/uL Hgb 10.7 L (14.0-18.0) g/dl Hct 34.0 L (42.0-52.0) % MCV 85.0 (80.0-98.0) fL MCH 26.8 L (27.0-33.0) pg MCHC 31.5 (31.0-36.0) g/dl RDW 17.2 H (11.0-16.0) % Plt Count 325 (160-400) X10*3/uL MPV 9.5 (9.4-12.4) fL Immature Gran % (Auto) 0.3 (0.0-0.4) % Neut % (Auto) 80.0 H (45-73) % Lymph % (Auto) 7.7 L (20-40) % [place] % (Auto) 10.0 (2-11) % Eos % (Auto) 1.7 (0-4) % Baso % (Auto) 0.3 (0-2) % Lymph # (Auto) 0.5 L (1.2-4.9) X10*3/uL [place] # (Auto) 0.6 (0.1-1.2) X10*3/uL Eos # (Auto) 0.1 (0.0-0.4) X10*3/uL Baso # (Auto) 0.0 (0.0-0.2) X10*3/uL Abs Immat Gran (auto) 0.02 (0.00-0.03) X10*3/uL Absolute Neuts (auto) 4.8 (2.0-8.3) x10*3/uL Absolute Nucleated RBC 0.000 (0.0-0.012) X10*3/uL Nucleated RBC % (auto) 0.0 (0.0-0.2) /100WBC Sodium 143 (135-145) mmol/L Potassium 4.4 (3.3-5.1) mmol/L Chloride 111 H (96-108) mmol/L Carbon Dioxide 24 (22-29) mmol/L Anion Gap 12 (12-20) BUN 30 H (9-16) mg/dL Creatinine 1.10 (0.5-1.4) mg/dL Estim Creat Clear Calc 38.0 Estimated GFR > 60 Random Glucose 115 (60-115) mg/dL Calcium 9.9 D (8.4-10.2) mg/dL Magnesium 2.1 (1.6-2.6) mg/dL Total Bilirubin 0.7 (0.0-1.0) mg/dL Direct Bilirubin 0.3 (0.0-0.5) mg/dL AST 20 (5-37) U/L ALT 13 (0-40) U/L Alkaline Phosphatase 145 H (39-117) U/L Total Protein 7.2 (6.5-8.0) g/dL Albumin 4.3 (3.5-5.0) g/dL Lipase 18 (8-78) U/L Urine Color Red A Urine Appearance Cloudy Urine pH 7.0 (5.0-9.0) Ur Specific [place] 1.015 (1.005-1.025) Urine Protein 30 (1+) H (Neg-Trace) mg/dL Urine Glucose (UA) Negative (Negative) mg/dL Urine Ketones Negative (Negative) mg/dL Urine Blood Large (3+) H (Negative) Urine Nitrite Negative (Negative) Ur Leukocyte Esterase Moderate (2+) H (Negative) Urine RBC >20 H (0-2) /HPF Urine WBC 21-50 H (0-5) /HPF Ur Squamous Epith Cells 0-2 (0-2) /HPF Urine Bacteria 4+ (None Seen) Hyaline Casts 0-2 (0-2) /LPF Radiology Impression Discussion of test interpretation with radiology: I have reviewed the radiologist's reading. Discharge Plan Discharge Clinical Impression: Cystitis, Thoracic back pain, Degenerative arthritis of lumbar spine Patient Disposition: Home, Self-Care Instructions: Urinary Tract Infection in Men (ED), Osteoarthritis (ED) Additional Instructions: You were found to have degenerative changes with the an your spine. You were also found to have a urinary tract infection. See home care instructions. Use the ketorolac for your pain, take this medication with food. Use the methocarbamol as needed for further pain, this is a muscle relaxant. It will cause drowsiness do not drive or operate machinery while taking the medication. Take the Bactrim, this is an antibiotic to treat your urinary tract infection. Follow up with your primary care provider within 7-10 days for reassessment. Prescriptions: New sulfamethoxazole-trimethoprim [Bactrim DS] 800-160 mg tablet 1 tab PO Q12H Qty: 13 0RF ketorolac 10 mg tablet 10 mg PO Q6H PRN (Reason: pain) Qty: 20 0RF Rx Instructions: maximum total duration of 5 days from all oral, intranasal, or parenteral formulations, patient received an intramuscular dose of Toradol here in the emergency room methocarbamol 750 mg tablet 750 mg PO Q8H PRN (Reason: pain, moderate) Qty: 15 0RF No Action lidocaine 5 % adhesive patch,medicated 2 patch topical DAILY Qty: 15 0RF Rx Instructions: leave on most painful area for up to 12 hrs cyanocobalamin (vitamin B-12) 1,000 mcg tablet 1,000 mcg PO BEDTIME acetaminophen 500 mg tablet 500 - 1,000 mg PO Q8H PRN (Reason: fever) furosemide 20 mg tablet 20 mg PO QAM metformin 750 mg tablet extended release 24 hr 750 mg PO BID mirabegron [Myrbetriq] 50 mg tablet extended release 24 hr 50 mg PO DAILY furosemide [Lasix] 40 mg tablet 40 mg PO BID 7 Days Qty: 14 0RF amoxicillin-pot clavulanate [Augmentin] 500-125 mg tablet 1 tab PO BID Qty: 14 0RF ascorbic acid (vitamin C) [Vitamin C] 500 mg tablet 500 mg PO BEDTIME magnesium oxide 400 mg (241.3 mg magnesium) tablet 400 mg PO DAILY@1200 (DME) compression socks, medium Misc See Rx Instructions .Route Qty: 2 0RF Rx Instructions: As directed aspirin 81 mg tablet,delayed release (DR/EC) 81 mg PO DAILY amlodipine 5 mg tablet 5 mg PO DAILY (DME) lancets [TRUEplus Lancets] 33 gauge misc See Rx Instructions .ROUTE .MEDSUPPLY Qty: 100 Rx Instructions: As directed (DME) FreeStyle Lite Strips Strip See Rx Instructions .ROUTE .MEDSUPPLY Qty: 10 Rx Instructions: As directed atorvastatin 20 mg tablet 20 mg PO BEDTIME ferrous sulfate [FeroSul] 325 mg (65 mg iron) tablet 325 mg PO BID pioglitazone 45 mg tablet 45 mg PO DAILY@1900 Interventions: ED Discharge Assessment Last Done: 06/28/25 01:28 Discharge Date/Time: 06/28/25 01:29 Print Language: Unable To Collect
[2025-06-27 14:05] LABS: Hematocrit 34.0 % (42.0-52.0); Hemoglobin 10.7 g/dl (14.0-18.0); Imm Gran Abs Auto 0.02 X10*3/uL (0.00-0.03); Imm Gran Pct Auto 0.3 % (0.0-0.4); Lymphocytes Absolute Auto 0.5 X10*3/uL (1.2-4.9); MANUAL DIFF FLAG NO; Mean Corpuscular HGB Conc 31.5 g/dl (31.0-36.0); Mean Corpuscular Hemoglobin 26.8 pg (27.0-33.0); Mean Corpuscular Volume 85.0 fL (80.0-98.0); NRBC Abs Auto 0.000 X10*3/uL (0.0-0.012); NRBC Pct Auto 0.0 /100WBC (0.0-0.2); Platelet Count 325 X10*3/uL (160-400); Red Blood Count 4.00 X10*6/uL (4.60-5.80); White Blood Count 6.0 X10*3/uL (4.8-10.8)
[2025-06-27 14:20] LABS: Alanine Aminotransferase 13 U/L (0-40); Albumin Level 4.3 g/dL (3.5-5.0); Alkaline Phosphatase 145 U/L (39-117); Anion Gap 12 (12-20); Aspartate Amino Transferase 20 U/L (5-37); Blood Urea Nitrogen 30 mg/dL (9-16); Calcium 9.9 mg/dL (8.4-10.2); Carbon Dioxide 24 mmol/L (22-29); Chloride 111 mmol/L (96-108); Creatinine Clr Calc Pharmacy 38.0; Estimated Glomerular Filt Rate > 60; Lipase 18 U/L (8-78); Magnesium 2.1 mg/dL (1.6-2.6); Potassium 4.4 mmol/L (3.3-5.1); Sodium 143 mmol/L (135-145); Total Protein 7.2 g/dL (6.5-8.0)
[2025-06-27 21:07] VITALS: BP 148/70; PULSE 90; RESP 18; TEMP 36.6; O2SAT 97
[2025-06-27 22:59] LABS: Appearance Urine Cloudy; Glucose Urine UA Negative (Negative); PH 7.0 (5.0-9.0); Specific Gravity - Urine 1.015 (1.005-1.025); UMIC TRIGGER UACC YES
[2025-06-27 23:00] LABS: UACC Culture Trigger YES
--- OUTSIDE RECORDS SUMMARY | 2025-06-27 23:46 | XMS_ITS | Encounter Summary ---
Author Organization [employer] Address [address] [facility] 7t [place] [address] Care Team Providers Care Evaporative Cooler Installer Name Role Phone Jolly London MD Primary Care Provider [phone] Javier Benton PharmD Unavailable [phone] Reason for Visit * Reason Comments Med Refill Encounter Details Date Type Department Care Team ([facility] st Contact Info) Description 11/13/2023 Refill [facility] [address] [place], [place] [phone] Jolly London MD [address] [place], [place] [phone] Social History Tobacco Use Types Packs/Day Years Used Date Smoking Tobacco: Never Passive Smoke Exposure: Never Smokeless Tobacco: Never Depression Answer Date Recorded Patient Health Questionnaire-9 Score 0 02/14/2023 Housing Stability Answer Date Recorded What is your housing situation today? I have conrad noaln 10/07/[address] you li [...] t he electric, gas, oil or water [employer] threatened to shut off services in your [...] Care Team (Late st Contact Info) Description 07/09/2025 3:30 PM EST Office Visit [facility] [address] [place] [phone] Jolly London MD [address] [place] [address] 09/09/2025 1:00 PM EST Medication Management [facility] [address] [place] [phone] Javier Benton, PharmDiamond [address] [place] [phone] documented as of this encounter Goals Goal Patient Goal Type Associated Problems Recent Progress Patient-Stated? Author Blood Pressure < 140/90 Blood Pressure 128/60( 025 1:08 PM EST) No Javier Benton, Marc documented as of this encounter Visit Diagnoses Not on filedocumented in this encounter Additional Health Concerns Assessment Noted Time PHQ-9 Depression Total Score: 0 02/15/20 23 1:30 PM EDT documented as of this encounter Care Teams Evaporative Cooler Installer Relationship Specialty Start Date End Date Jolly London MD [address] [place] [address] [phone] PCP - General Family Medicine 06/29/12 Javier Benton, PharmD [address] [place] [address] [phone] Pharmacist Internal Medicine 01/14/23 [facility] 04/21/25 documented as of this encounter
--- OUTSIDE RECORDS SUMMARY | 2025-06-27 23:46 | XMS_ITS | Encounter Summary ---
Author Organization [employer] Address [address] [facility] 7t [place] [address] Care Team Providers Care Sheet Mill Supervisor Name Role Phone Jolly London MD Primary Care Provider [phone] Javier Benton PharmD Unavailable [phone] Encounter Details Date Type Department Care Team ([facility] st Contact Info) Description 12/14/2023 Orders Only [facility] [address] [place], [place] [phone] Jolly London MD [address] [place], [place] [phone] Social History Tobacco Use Types Packs/Day Years [...] Description 07/09/2025 3:30 PM EST Office Visit [facility] [address] [place] [phone] Jolly London MD [address] [place] [address] 09/09/2025 1:00 PM EST Medication Management [address] [phone] Javier Benton PharmD [address] [place] [address] documented as of this encounter Goals Goal Patient Goal Type Associated Problems Recent Progress Patient-Stated? Author Blood Pressure < 140/90 Blood Pressure 128/60( 025 1:08 PM EST) No Javier Benton PharmD documented as of this encounter Visit Diagnoses Not on filedocumented in this encounter Additional Health Concerns Assessment Noted Time PHQ-9 Depression Total Score: 0 02/15/20 23 1:30 PM EDT documented as of this encounter Care Teams Sheet Mill Supervisor Relationship Specialty Start Date End Date Jolly London MD [address] [place] [address] [phone] PCP - General Family Medicine 06/29/12 Javier Benton PharmD [address] [place] [phone] Pharmacist Internal Medicine 01/14/23 [facility] 04/21/25 documented as of this encounter
--- OUTSIDE RECORDS SUMMARY | 2025-06-27 23:46 | XMS_ITS | Encounter Summary ---
Author Organization [employer] Address [address] [facility] 7t [place] [address] Care Team Providers Care Sports Medicine Masse[place] Name Role Phone Jolly London MD Primary Care Provider [phone] Javier Bentno PharmD Unavailable Encounter Details Date Type Department Care Team ([facility] st Contact Info) Description 05/28/2025 Orders Only [facility] [address] [place], [place] [phone] Jolly London MD [address] [place], [place] [phone] Primary hypertension (Primary Dx) Social History Tobacco [...] Description 07/09/2025 3:30 PM EST Office Visit [address] [address] Jolly London MD [address] [place] [phone] 09/09/2025 1:00 PM EST Medication Management [address] [phone] Javier Benton, Marc [address] [place] [phone] Scheduled Orders Name Type Priority Associated Diagnoses Orde r Schedule Basic Metabolic Panel Lab Routine Primary hypertension Expected: 05/28/2025 (Approximate), Expires: 05/28/2026 documented as of this encounter Goals Goal Patient Goal Type Associated Problems Recent Progress Patient-Stated? Author Blood Pressure < 140/90 Blood Pressure 128/60( 025 1:08 PM EST) No Javier Benton, PharmD documented as of this encounter Visit Diagnoses Diagnosis Primary hypertension- Primary Unspecified essential hypertension documented in this encounter Additional Health Concerns Assessment Noted Time PHQ-9 Depression Total Score: 1 08/13/19 25 3:11 PM EST documented as of this encounter Care Teams Sports Medicine [place] Relationship Specialty Start Date End Date Jolly London MD [address] [place] [address] PCP - General Family Medicine 06/29/12 Javier Benton, AreliD [address] [place] [address] Pharmacist Internal Medicine 01/14/23 [facility] 04/21/25 documented as of this encounter
--- OUTSIDE RECORDS SUMMARY | 2025-06-27 23:46 | XMS_ITS | Encounter Summary ---
Author Organization [employer] Address [address] [facility] 7t [place] [address] Care Team Providers Care X Ray Technician Name Role Phone Jolly London MD Primary Care Provider [phone] Javier Benton PharmD Unavailable [phone] Reason for Referral * Consultation (Routine) - Closed Specialty Diagnoses / Procedures Referred By Contac t Referred To Contact Otolaryngology Diagnoses Dizziness Sensorineural hearing loss, bilateral Jolly London MD [address] [place] [address] Phone: tel: fax: [facility] [address] Phone: tel: fax: Referral ID Status Reason Start Date Expiration Date V isits Requested Visits Authorized [id number] Closed Specialty Services Required 10/15/2024 10/15/2025 1 1 Encounter Details Date Type Department Care Team (Late st Contact Info) Description 10/10/2024 Orders Only [facility] [address] [place], [place] [phone] Jolly London MD [address] [place], [place] [phone] Dizziness (Primary Dx); Sensorineural hearing loss, bilateral [...] Description 07/09/2025 3:30 PM EST Office Visit [facility] [address] [place] [phone] Jolly London MD [address] [place] [address] 09/09/2025 1:00 PM EST Medication Management [facility] [address] [place] [phone] Javier Benton, PharmD [address] [place] [address] Pending Results Name Type Priority Associated Diagnoses [...] documented as of this encounter Care Teams X Ray Technician Relationship Specialty Start Date End Date Jolly London MD [address] [place] [address] PCP - General Family Medicine 06/29/12 Javier Benton, Marc [address] [place] [address] Pharmacist Internal Medicine 01/14/23 [facility] 04/21/25 documented as of this encounter
--- OUTSIDE RECORDS SUMMARY | 2025-06-27 23:46 | XMS_ITS | Encounter Summary ---
Author Organization [employer] Address [address] [place] [address] 7t [place] [address] Care Team Providers Care Asphalt Paver Operator Name Role Phone Jolly London MD Primary Care Provider [phone] Javier Benton PharmD Unavailable [phone] Reason for Visit * Reason Comments Med Refill Encounter Details Date Type Department Care Team (Late st Contact Info) Description 10/14/2022 Refill [facility] [address] [place] [phone] Ximena Harkins FNP Social History Tobacco Use [...] Description 07/09/2025 3:30 PM EST Office Visit [facility] [address] [place] [address] [phone] Jolly London MD [address] [place] [address] 09/09/2025 1:00 PM EST Medication Management [facility] [address] [place] [address] Javier Benton, Macr [address] [place] [address] documented as of this encounter Visit Diagnoses Not on filedocumented in this encounter Care Teams Asphalt Paver Operator Relationship Specialty Start Date End Date Jolly London MD [address] [place], [place] [phone] PCP - General Family Medicine 06/29/12 Javier Benton, AreliD [address] [place] [address] Pharmacist Internal Medicine 01/14/23 [facility] 04/21/25 documented as of this encounter
--- OUTSIDE RECORDS SUMMARY | 2025-06-27 23:46 | XMS_ITS | Encounter Summary ---
Author Organization [employer] Address [address] [facility] 7t [place] [address] Care Team Providers Care Desulfurizer Machine Name Role Phone Jolly London MD Primary Care Provider [phone] Javier Benton PharmD Unavailable [phone] Reason for Referral * Consultation (Routine) - Authorized Specialty Diagnoses / Procedures Referred By Contac t Referred To Contact Pharmacy Diagnoses Primary hypertension Type 2 diabetes mellitus with hyperglycemia, without long-term current use of insulin ([facility]) Jolly London MD [address] [place] [address] Phone: tel: fax: Referral ID Status Reason Start Date Expiration Date Visits Requested Visits Authorized [id number] Authorized Consult and Treat 02/05/2025 02/05/2026 6 6 Encounter Details Date Type Department Care Team (Late st Contact Info) Description 02/05/2025 Orders Only [facility] [address] [place], [place] [phone] Jolly London MD [address] [place], [place] [phone] Primary hypertension (Primary Dx); Type 2 diabetes [...] Description 07/09/2025 3:30 PM EST Office Visit [facility] [address] [place] [address] Jolly London MD [address] [place] [address] 09/09/2025 1:00 PM EST Medication Management [facility] [address] [place] [address] Javier Benton, PharmD [address] [place] [address] Scheduled Referrals Name Type Priority Associated Diagnoses Orde r Schedule Referral to Pharmacy CDTM Outpatient Referral Routine Primary hypertension Type 2 diabetes mellitus with hyperglycemia, without long-term current use of insulin ([facility]) Ordered: 02/05/2025 documented as of this [...] AM EDT Narrative 02/20/2025 11:58 AM EDT [address] [address] XRay Report Signed Patient: Toni Keys MR#: [id number] : 1935 Acct:[id number] Age/Sex: 89 / M ADM Date: 02/20/25 Loc: HO.ED Attending Dr: Ordering Physician: Moira Sanchez Date of Service: 02/20/25 Procedure(s): XR hip RT w PEL1V Accession Number(s): [id number] cc: Moira Sanchez; Jolly London MD EXAMINATION: [...] 02/20/25 1155 DD/ 1050 TD/TT: 02/20/25 1149 Kinesiology Internship: Procedure Note Donotuseinterpreter, Image - 02/20/2025 [place] [address] XRay Report Signed Patient: Toni Keys MR#: [id number] : 8Acct:[id number] Age/Sex: 89 / MADM Date: 02/20/25 Loc: HO.ED Attending Dr: Ordering Physician: Moira Sanchez Date of Service: 02/20/25 Procedure(s): XR hip RT w PEL1V Accession Number(s): [id number] cc: Moira Sanchez; Jolly London MD EXAMINATION: [...] 02/20/25 1155 DD/ 1050 TD/TT: 02/20/25 1149 Kinesiology Internship: [facility] External Provider IMG XR PROCEDURES Final Result documented in this encounter Visit Diagnoses Diagnosis Primary hypertension- Primary Unspecified essential hypertension Type 2 diabetes mellitus with hyperglycemia, without long-term current use of insulin (HCC) documented in this encounter Additional Health Concerns Assessment Noted Time PHQ-9 Depression Total Score: 1 08/13/19 3:11 PM EST documented as of this encounter Care Teams Desulfurizer Machine Relationship Specialty Start Date End Date Jolly London MD [address] [place] [address] PCP - General Family Medicine 06/29/12 Javier Benton, AreliD [address] [place] [address] Pharmacist Internal Medicine 01/14/23 [facility] 04/21/25 documented as of this encounter
--- OUTSIDE RECORDS SUMMARY | 2025-06-27 23:46 | XMS_ITS | Encounter Summary ---
Author Organization [employer] Address [address] [facility] 7t [place] [address] Care Team Providers Care World Language Teacher Name Role Phone Jolly London MD Primary Care Provider Javier Benton PharmD Unavailable [phone] Encounter Details Date Type Department Care Team ([facility] st Contact Info) Description 03/07/2024 Orders Only [facility] [address] [place], [place] [phone] Jolly London MD [address] [place], [place] [phone] Social History Tobacco Use Types Packs/Day Years [...] Description 07/09/2025 3:30 PM EST Office Visit [facility] [address] [place] [address] Jolly London MD [address] [place] [address] 09/09/2025 1:00 PM EST Medication Management [address] [phone] Javier Benton PharmD [address] [place] [address] documented as of this encounter Goals Goal Patient Goal Type Associated Problems Recent Progress Patient-Stated? Author Blood Pressure < 140/90 Blood Pressure 128/60( 025 1:08 PM EST) No Javier eBnton PharmD documented as of this encounter Visit Diagnoses Not on filedocumented in this encounter Additional Health Concerns Assessment Noted Time PHQ-9 Depression Total Score: 0 02/15/20 23 1:30 PM EDT documented as of this encounter Care Teams World Language Teacher Relationship Specialty Start Date End Date Jolly London MD [address] [place] [address] [phone] PCP - General Family Medicine 06/29/12 Javier Benton PharmD [address] [place] [address] Pharmacist Internal Medicine 01/14/23 [facility] 04/21/25 documented as of this encounter
--- OUTSIDE RECORDS SUMMARY | 2025-06-27 23:46 | XMS_ITS | Data Portability ---
Author Organization [facility] [employer] [facility], Main Office Address [address] [facility] [place] [address] Care Team Providers Care Foam Tank Laminator Name Role Phone QUENTIN MORGAN - 2ND FLOOR OTHER Assessment Encounter Date Assessment Date Assessment LastModified by Organization Details LastModified Time 02/28/2024 02/28/2024 I have seen and examined the patient independently and confirmed the findings above with the PAVING MACHINE OPERATOR student note. Management plan discussed with the PAVING MACHINE OPERATOR student personally. [email or web address] Not available 02/28/2024 14:09:16 03/01/2024 03/01/2024 45 mins. spent on coordination of discharge [email or web address] Not available 03/01/2024 15:25:32 Plan of Treatment [...] and Address Organization Details Recorded Time Asthenia 09990317 Active 2023 KHALIDA NESBITT NP [address] [facility], [address], [place], [address], [employer] 4 10:39:59 Acute nontraumati c kidney injury 4898922042683 03 Active 2023 KHALIDA NESBITT NP [address], [address], [place], [address], [facility] [employer] 4 10:40:05 Urinary tract infectious disease 12415159 Active 2023 KHALIDA NESBITT NP [address] [facility], [address], [place], [address], [facility] 4 10:40:12 Hypomagnese kaitlin 423361401 Active 2023 KHALIDA NESBITT NP [address] [facility], [address], [place], [address], [facility] [employer] [facility] 4 10:40:29 Malignant neoplasm of prostate 076678808 Active 2023 XRT KHALIDA NESBITT NP [address] [facility], [address], [place], [address], [facility] 4 10:41:04 Type 2 diabetes mellitus without complicatio n 121756327 Active 2023 KHALIDA NESBITT NP [address] [facility], [address], [place], [address], [employer] [facility] 4 10:42:06 Hypertensiv e disorder 46577281 Active 2023 KHALIDA NESBITT NP [address] [facility], [address], [place], [address], [facility] 4 10:42:13 Hyperlipide [facility] 09496911 Active 2023 KHALIDA NESBITT NP [address] [facility], [address], [place], [address], [facility] 4 10:42:18 Anemia 927020413 Active 2023 KHALIDA NESBITT NP [address] [facility], [address], [place], [address], [employer] [facility] 4 10:43:45 Problem Notes None recorded. Medical Equipment None Reported. Allergies Allergen ID Allergen Name Allergen Category Reaction Reaction Severity Criticality Documentation Date Start Date Code Code System Note Provider Name and Address Organization Details Recorded Time 63857 Keflex medicatio n Not available Not available Not available 02/22/2024 01269 7 RxNorm const ipati on KHALIDA NESBITT NP [address] [facility], [address], [place], [address], [employer] [facility] 4 10:22:19 48195 oxycodone medicatio n Not available Not available Not available 02/22/2024 7804 RxNorm vomit ing, shima chaudhry KHALIDA NESBITT NP [address] [facility], [address], [place], [address], [facility] 4 10:22:37 71486 acetamino phen / oxycodone medicatio n Not available Not available Not available 02/22/2024 14917 3 RxNorm nause a, shima chaudhry KHALIDA NESBITT NP [address] [facility], [address], [place], [address], [facility] 4 10:22:55 Medications Not known to be on any medication Vitals Date Recorded Heart rate Respiratory rate Body temperature Systolic And Diastolic Provider Name and Address Organization Details Last Updated DateTime 02/22/2024 110 /min 20 /min 97.9 [degF] 98/62 mm[Hg] KHALIDA NESBITT NP [address] [facility], [address], [place], [address], [facility] 4 10:19:22 Date Recorded Heart rate Respiratory rate Body temperature Oxygen saturation Systolic And Diastolic Provider Name and Address Organization Details Last Updated DateTime 4 109 /min 18 /min 98.1 [degF] 97 % 110/60 mm[Hg] KHALIDA NESBITT NP [address] [facility], [address], [place], [address], [facility] 4 10:16:09 Date Recorded Systolic And Diastolic Provider Name and Address Organization Details Last Updated DateTime 02/25/2024 110/73 mm[Hg] Mayo Gomez MD [address] [facility], [address], [place], [address], [facility] 02/25/2024 16:04:57 Date Recorded Body height Body mass index (BMI) Body weight Respiratory rate Body temperature Oxygen saturation Systolic And Diastolic Provider Name and Address Organization Details Last Updated DateTime 4 157.48 cm 27.9 kg/m2 35110.8 4 g 18 /min 98.2 [degF] 96 % 150/81 mm[Hg] Mylene abrams [facility] 4 12:52:27 Date Recorded Body height Heart rate Respiratory rate Body temperature Oxygen saturation Systolic And Diastolic Provider Name and Address Organization Details Last Updated DateTime 157.48 cm 96 /min 18 /min 97.8 [degF] 95 % 132/68 mm[Hg] KHALIDA NESBITT NP [address] [facility], [address], [place], [address], [employer] [facility] 4 14:50:13 Social History Question Answer Notes LastModified by [employer] Details LastModified Time Tobacco Smoking Status Former Smoker quit over 10 yrs ago KHALIDA NESBITT NP [address] [facility], [address], [place], [address], [employer] [facility] 02/22/2024 11:06:58 What Is Your Code Status? Full Code [email or web address] Information not available 02/22/2024 Where Do You Live? Apartment Elevator, No Stairs. Brother Nearby Information not available 02/22/2024 Do You Have A Medical Power Of Hand Violin Maker? Yes Has HCP Information not available 02/22/2024 What Was The Date Of Your Most Recent Tobacco Screening? 02/22/2024 Information not available 02/22/2024 Do You Have An Out Of Hospital DNR? No [email or web address] Information not available 02/22/2024 Have You Ever Been Counseled For Unhealthy Alcohol Use? No Information not available 02/22/2024 How Much Tobacco Do You Smoke? No Information not available 02/22/2024 Has Tobacco Cessation Counseling Been Provided? No [email or web address] Information not available 02/22/2024 Sex: Unknown Functional Status Question Answer Note LastModified by [employer] Details LastModified Time Do you use any illicit or recreational drugs? No [email or web address] Information not available 02/22/2024 Do you or have you ever used any other forms of tobacco or nicotine? No [email or web address] Information not available 02/22/2024 What is your level of alcohol consumption? Occasional Social [email or web address] Information not available 02/22/2024 Mental Status None recorded. Family History Nothing Reported Notes:N/A Medical History No medical history recorded. Past Encounters Encounter ID Performer Location Encounter Start Date Encounter Closed Date Diagnosis/Indication Diagnosis SNOMED-CT Code Diagnosis ICD10 Code Diagnosis IMO Codes Diagnosis Note [id number] KHALIDA NESBITT NP [facility] [address] [address] 02/22/2024 10:17:35 02/28/2024 14:23:59 Asthenia 70632989 R53.1 PT OT eval and tx. for reconditio klaudia, balance, strength, and gait trainingGo al is to return home. Hypomagnesemia 430892234 E83.42 Severe, <0.6 upon admit to hosp.Impro matias with supplement s and d/c of PPI.Discha rged on MagOx 800 mg tidPlan -Mg level q tuesday x 3Adjust dose prn Urinary tr act infectious disease 80551694 N39.0 ESBL E. ColiSeen by ID - now on ertapenem 1 gm IV qd x 10 days, last dose 813Contin ue phenazopyr idine 100 mg tid prnAdd probiotic 1 bid x 10 daysMonito r VS, lans, s/s infection. Maintain hydrationS till with moderate sx. but better than prior Acute nont raumatic kidney injury 7074921515 87320 N17.9 Improved with fluids and d/c of OTIS IMaintain fluidsMoni tor labs Type 2 lokesh betes mellitus without complication 533318341 E11.9 Continue metformin ER 750 mg bid, pioglitazo ne 45 mg qdCarb control dietPt. requesting BS TID AC, will orderMonit or Hypertensive disorder 38 988929 I10 Currently on norvasc 5 mg qdLisinopr il 40 mg qd stopped in hosp. due to AKIMonitor VS, labs, need to adjust meds/ Hyperlipidemia 91972148 E78.5 Continue atorvastat in 20 mg qdLabs prn Anemia 846437635 D64.9 Continue home meds:Fe SO4 325 mg qdVit C 500 mg qdB 12 1000 mcg qd Malignant neoplasm of prostate 285156261 C61 myrbetriq 50 mg qd Aspirin th erapy finding 356999881 Z79.82 unsure why he is currently takingwill continue ASA 81 mg qd for now [id number] KHALIDA NESBITT NP [facility] [address] [place] [address] 02/23/2024 10:13:03 02/28/2024 15:24:45 Asthenia 12878004 R53.1 PT OT eval and tx. for reconditio klaudia, balance, strength, and gait trainingGo al is to return home. Hypomagnesemia 222853540 E83.42 Severe, <0.6 upon admit to hosp.Impro matias with supplement s and d/c of PPI.Discha rged on MagOx 800 mg tidCurrent Mg level 02/21 = 1.9Plan -Mg level q tuesday x 3Adjust dose prn Urinary tr act infectious disease 18182816 N39.0 ESBL E. ColiSeen by ID - [...] than prior Acute nont raumatic kidney injury 4908813348 05311 N17.9 Improved with fluids and d/c of OTIS ICMP yesterday with K of 5.4Maintai n fluidsMoni tor labs - BMP q . x 3 Type 2 lokesh betes mellitus without complication 247560188 E11.9 Continue metformin ER 750 mg bid, pioglitazo ne 45 mg qdCarb control dietBS TID AC per pt. requestMon itor Hypertensive disorder 38 412412 I10 So far in good controlCur rently on norvasc 5 mg qd - continueLi sinopril 40 mg qd stopped in hosp. due to AKIMonitor VS, labs, need to adjust meds Hyperlipidemia 94701370 E78.5 Continue atorvastat in 20 mg qdLabs prn Anemia 077289059 D64.9 Continue home meds:Fe SO4 325 mg qdVit C 500 mg qdB 12 1000 mcg qd Malignant neoplasm of prostate 382911131 C61 myrbetriq 50 mg qd Aspirin th erapy finding 401834414 Z79.82 unsure why he is currently takingwill continue ASA 81 mg qd for now Tachycardia 8058289 R00. 0 HR running in low 100s here, regular rateAsympt omatic.Uns ure of baseline Plan -continue to monitor closelymai ntain po fluidstrea t infectiont rend labsconsid er metoprolol in place of norvasc to help reduce HR [id number] Mayo Gomez MD [address] [address] 02/25/2024 16:04:10 02/28/2024 15:54:08 Asthenia 89850138 R53.1 PT OT eval and treatmonit or fall risk and need for increased support in community Hypomagnesemia 744760146 E83.42 repleted in hospital now onMg supplement monitor lytes and need to titrate Urinary tr act infectious disease 37277713 N39.0 see HPIeval by ID and to complete course of ertapenema dd probioticm onitor for recurrent diseaseif dysuria continues repeat UA Acute nont raumatic kidney injury 1661878349 71187 N17.8 OTIS-I d/c'edmoni tor renal functionav oid nephrotoxi c meds as ablenephro consult prn Type 2 lokesh betes mellitus without complication 325254546 E11.9 metformin 750 mg bidpioglit azone 45 mg qdmonitor blood glucose prn and need to adjust medication Hypertensive disorder 38 393089 I10 OTIS-I d/c'edmain tained onnorvasc 5 mg qdmonitor bp and need to titrate Hyperlipidemia 87888753 E78.2 lipitor 20 mg qdcontinue d Anemia 087307062 D50.8 question anemia of chronic diseasemon itor cbciron studies prn Malignant neoplasm of prostate 375017496 C61 carrying dx added to PMHmaintai toney on myrbetriq 50 mg qdcontinue d Aspirin th erapy finding 563637022 Z79.82 unsure why he is currently takingwill continue ASA 81 mg qd for now [id number] KHALIDA NESBITT NP [facility] [address] 02/28/2024 12:37:20 02/29/2024 13:01:36 Urinary tract infectious disease 64980752 N39.0 Burning, dysuria finally improving; now minimal.LD IV ABT ertapenem today, consuelo. well.Curre ntly on: Myrbetriq 50 mg dailyCompl eted 3 days of sched. Phenazopyr idine 100 mg every 8 hours, prn order remains in place.Megan tor symptoms closely Acute nont raumatic kidney injury 9431009906 30328 N17.8 Remains off OTIS-inhibi torsavoid nephrotoxi c meds as ablemonito r renal functionne phro consult prn Hypomagnesemia 030275018 E83.42 Mg level on 02/27/24 2.6Reduce Mag Ox to 800 mg bidContinu e to monitor labs and need to titrate Asthenia 70813086 R53.1 DUMAS-low fall risk 02/22/24Cont inue PT OT, goal is to return homemonito r fall risk and need for increased support in community Type 2 lokesh betes mellitus without complication 060564947 E11.9 In good controlCon tinue:metf ormin 750 mg bidpioglit azone 45 mg qdmonitor blood glucose TID per pt request Hypertensive disorder 38 595234 I10 Remains off OTIS inhibitors managed with norvasc 5 mg qdContinue to monitor bp and need to titrate Anemia 044153780 D50.8 H+H stableAsym tptomaticF eSo4 325 mg dailyConti nue to monitor cbc Hyperlipidemia 10665020 E78.2 Continue lipitor 20 mg qdMonitor labs Malignant neoplasm of prostate 345693942 C61 carrying dx, PMHContinu e myrbetriq 50 mg qdMonitor sx Aspirin th erapy finding 229388580 Z79.82 unknown reason for takingCont inue ASA 81 mg qd for now Hyperkalemia 81000064 E8 7.5 02/27/24 K 5.8Not on OTIS I, ARBwas given Sodium Polystyren e Sulfonate Suspension 15 GM X 1Asymptoma ticMonitor Labs as outpt. [id number] KHALIDA NESBITT NP [address] [address] 03/01/2024 14:48:03 03/05/2024 15:25:14 Urinary tract infectious disease 96946753 N39.0 Burning, dysuria finally resolved.C ompleted IV ertapenem, consuelo. well.VSSLa bs stable Monitor symptoms closely as outpt. Hyperkalemia 38511131 E8 7.5 02/27/24 K 5.8, repeat 02/28 5.2Not on OITS I, ARBEncoura ge fluidsMoni tor Labs as outpt. Acute nont raumatic kidney injury 9736688653 55496 N17.8 Remains off OTIS-inhibi torsavoid nephrotoxi c meds as ablemonito r renal function - still with mild elevation in Creat - 1.49 on 02/28Encour age po fluidsMoni tor as outpt. Hypomagnesemia 728007009 E83.42 Mg level on 02/27/24 2.6Reduced Mag Ox from 800 mg tid to 800 mg bidContinu e to monitor labs and need to titrate as outpt. Asthenia 48972433 R53.1 DUMAS-low fall risk 02/22/24Cont inue PT OT, meeting goals, home tomorrow with meds and services.m onitor fall risk and need for increased support in community Type 2 lokesh betes mellitus without complication 556607258 E11.9 In good control, 100s.Danisha nue:metfor min 750 mg bidpioglit azone 45 mg qdmonitor blood glucose TID per pt request Hypertensive disorder 38 228283 I10 Remains off OTIS inhibitors managed with norvasc 5 mg qdContinue to monitor bp and need to titrate Anemia 751992918 D50.8 H+H stableAsym tptomaticF eSo4 325 mg dailyStool s reported as dark, ? from oral Fe - monitorCon tinue to monitor cbc Hyperlipidemia 48717107 E78.2 Continue lipitor 20 mg qdMonitor labs Malignant neoplasm of prostate 032748508 C61 carrying dx, PMHContinu e myrbetriq 50 mg qdMonitor sx Aspirin th erapy finding 548831581 Z79.82 unknown reason for takingCont inue ASA [...] [facility] - DOS ON OR AFTER 2022 - MEDICARE ADVANTAGE [place] & [place] (MEDICARE REPLACEMENT/AD VANTAGE - PPO) Toni Meehan [id number] Toni Meehan Notes Date Note Type Note Provider Name and Address Organization Details Recorded Time 02/22/2024 text/html Toni is seen today for admission. He is an 88 yo male, admitted to [facility] 02/21/24 from [facility] for continued care and rehab after a brief hosp. due to low Mg., UTI, RONEY. He presented to [facility] 02/16 with weakness x 1 [...] days of ertapenem, last date 02/27.RONEY - OTSI I stopped with improvement in levels.DM - SSIHTN - amlodipine continued. Upon exam, Toni is sitting in a chair in the [place] near his room. Alert, NAD, appears much younger than stated age. lump machine operator present for visit.Overall, Toni is feeling good. [...] DM2, anemiaFull code KHALIDA NESBITT NP [address] [facility], [address], [place], [address], [facility] 02/22/2024 11:37:32 02/23/2024 text/html Toni is seen today for an acute visit. He is an 88 yo male, admitted to [facility] 02/21/24 from [facility] for continued care and rehab after a brief hosp. due to low Mg., UTI, RONEY. He presented to [facility] 02/16 with weakness x 1 [...] DM2, anemiaFull code KHALIDA NESBITT NP [address] [facility], [address], [place], [address], [facility] [employer] [facility] 02/23/2024 10:37:44 02/25/2024 text/html Patient is an 88 yo male admit from hospital after presenting with weakness, dysuria and flank pain. Noted low Mg, in ARF. Dx with UTI. PPI was held and started on Mg supplement. Eval by ID and started on ertapenem. OTIS-I d/c due to renal failure sao tomean speaking diaper machine tender present PMH significant forhtnhx prostate cancerhlddmanemia admit to facility for continued care and therapy Mayo Gomez MD [address] [facility], [address], [place], [address], [facility] 02/25/2024 16:24:50 02/28/2024 text/html ROS as noted in the HPI Toni is seen today for an acute visit. He is an 88 year old male who was admitted here on 02/21/24 after hospital visit for UTI and low Mg level. Requiring continued care and rehab due to IV antibiotics and deconditioning. Toni presented to [facility] on 02/16 with weakness, dysuria, [...] Upon exam, Toni is feeling much better. Waterworks Pump Station Operator present. Minimal dysuria. Worried that he didn't pee yet today, but was able to pass urine this afternoon. Asked if he was drinking enough, and he wasn't sure. No other complaints. Moving bowels. DUMAS: low fall risk PMH: HTN, HLD, prostate CA s/p XRT, DM2, anemiaMOLST: Full code KHALIDA NESBITT NP [address] [facility], [address], [place], [address], [facility] [employer] [facility] 02/28/2024 16:12:08 03/01/2024 text/html ROS as noted in the HPI Toni is seen today for discharge. He is an 88 year old male who was admitted to [facility] on 02/21/24 after a hospital visit for UTI and low Mg level. He required continued care and rehab due to IV antibiotics and deconditioning. Toni presented to [facility] on 02/16 with weakness, dysuria, [...] Upon exam, Toni is feeling much better. Waterworks Pump Station Operator present. No further dysuria. Denies feeling weak or dizzy. No SOB, cough, CP. No GI upset, taking po. Reports passing some dark BM, but no BRB. Happy to be returning home. DUMAS: low fall riskPMH: HTN, HLD, prostate CA s/p XRT, DM2, anemiaMOLST: Full code KHALIDA NESBITT NP [address] [facility], [address], [place], [address], [facility] [employer] 03/01/2024 15:25:48
--- OUTSIDE RECORDS SUMMARY | 2025-06-27 23:46 | XMS_ITS | Patient Health Record ---
Author Organization [facility] Billing Info Address [address] [place] [address] Phone [phone] Care Team Providers Care [employer] Assistant Name Role Phone Nadia Black Primary Care Provider Philomena SOSA MD, CRIS Unavailable [phone] Allergies No Known Allergies Reason For Referral No Information Medications Medication SIG (Take, Route, Frequency, Duration) Notes Start Date End Date Diagnosis (ICD Code) Status Aspir-81 Active Lisinopril 20 MG Tablet 1 tablet Orally Once a day; Duration: 30 day(s) Active Imipramine HCl 10 MG Tablet 1 tablet Orally Once a day; Duration: 30 day(s) Active Actos 45 MG Tablet 1 tablet Orally Once a day; Duration: 30 day(s) Active GlipiZIDE 10 MG Tablet 1 tablet 30 minutes before breakfast Orally Once a day; Duration: 30 day(s) Active Omeprazole 20 MG Capsule Delayed Release 1 capsule 30 minutes before morning meal Orally Once a day; Duration: 30 day(s) Active Myrbetriq 50 MG Tablet Extended Release 24 Hour 1 tablet Orally Once a day; Duration: 90 day(s) 04/09/2021 Urge incontinenc e of urine (ICD_10 - N39.41) Active Metformin HCl 1000 MG Tablet 1 tablet with a meal Orally Once a day; Duration: 30 day(s) Active Immunizations Status Vaccine Route Administration Date Visit Date Comments Administered zCOVID-19 (Moderna) 12+yrs, NO PRES Unknown 09/25/2020 FLU (Past vaccine of unknown type) Unknown 04/17/2020 FLU (Past vaccine of unknown type) Unknown 04/17/2019 FLU (Past vaccine of unknown type) Unknown 04/17/2018 Social History Tobacco Use: Social History Observation Description Date Details (start date - stop date) Former Smoker NA - NA Sex Observation Social History Observation Description Sex Observation Male Social History Social History Social Info Question Answer Notes Tobacco Status: Patient is a former smoker Alcohol Use: Patient uses alcohol occasional *DO NOT USE * Tobacco Status (CQW): Patient is Forme r smoker How long has it been since you last smoked? > 10 years Problems Problem Type SNOMED Code ICD Code Dates Problem Status W/U Status Risk Notes Problem Urinary frequency (177013288) Urinary frequency (R35.0) Added On:2020 Active confirmed Problem Malignant tumor of prostate (393521694) Prostate cancer (C61) Added On:2020 Active confirmed Problem Urge incontinence of urine (31303808) Urge incontinence of urine (N39.41) Added On:2020 Active confirmed Plan Of Treatment No Information Insurance Providers Payer Name Payer Address Payer Phone Subscriber Number Group Number Insured Name Patient Relationship to Insured Coverage Start Date Coverage End Date [facility] CLAIMS [address] TELMA BOATENG [id number] Vel pichardo Toni Self - patient is the insured 8 [facility] [address] [place], [place] [id number] Vel pichardo Toni Self - patient is the insured 1 1 MEDICARE [place] PART B [address] [facility] TELMA GALINDO [id number] Sadavidal pichardo Toni Self - patient is the insured Medical (General) History Medical History History ICD Code Prostate cancer Diabetes mellitus Hypertension Hyperlipidemia Constipation UTI Hemriods Surgical History Surgery Date(Month/Year) prostate circumcision cataract surgery
--- OUTSIDE RECORDS SUMMARY | 2025-06-27 23:46 | XMS_ITS | Encounter Summary ---
Author Organization [employer] Address [address] [facility] 7t [place] [address] Care Team Providers Care Tram Operator Name Role Phone Jolly London MD Primary Care Provider [phone] Javier Benton PharmD Unavailable [phone] Reason for Referral * Consultation (Urgent) - Closed Specialty Diagnoses / Procedures Referred By Contac t Referred To Contact Diagnoses Sensorineural hearing loss, bilateral Dizziness Jolly London MD [address] [place] [address] Phone: tel: fax: Fred Mann [address] [place] [address] [address] [place], [place] [address] Phone: tel: fax: Referral ID Status Reason Start Date Expiration Date V isits Requested Visits Authorized [id number] Closed Specialty Services Required 10/10/2024 10/10/2025 1 1 Encounter Details Date Type Department Care Team (Late st Contact Info) Description 10/10/2024 Orders Only [facility] [address] [place], [place] [phone] Jolly London MD [address] [place], [place] [phone] Sensorineural hearing loss, bilateral (Primary Dx); Dizziness [...] 3:30 PM EST Office Visit [facility] [address] [place] [address] Jolly Lnodon MD [address] [place] [address] 09/09/2025 1:00 PM EST Medication Management [facility] [address] [place] [address] Javier Benton, PharmD [address] [place] [address] Scheduled Referrals Name Type Priority Associated Diagnoses [...] documented as of this encounter Care Teams Tram Operator Relationship Specialty Start Date End Date Jolly London MD [address] [place] [address] PCP - General Family Medicine 06/29/12 Javier Benton, PharmD [address] [place] [address] Pharmacist Internal Medicine 01/14/23 [facility] 04/21/25 documented as of this encounter
--- OUTSIDE RECORDS SUMMARY | 2025-06-27 23:46 | XMS_ITS | Encounter Summary ---
Author Organization [employer] Address [address] [facility] 7t [place] [address] Care Team Providers Care Organ Grinder Name Role Phone Jolly London MD Primary Care Provider [phone] Javier Benton PharmD Unavailable [phone] Reason for Visit * Reason Comments Med Refill Encounter Details Date Type Department Care Team ([facility] st Contact Info) Description 03/11/2024 Refill [facility] [address] [place], [place] [phone] Jolly London MD [address] [place], [place] [phone] Helicobacter pylori gastrointestinal tract infection Social History [...] Description 07/09/2025 3:30 PM EST Office Visit [address] [address] Jolly London MD [address] [place] [address] 09/09/2025 1:00 PM EST Medication Management [address] [address] Javier Benton, PharmD [address] [place] [phone] documented as of this encounter Goals Goal [...] documented as of this encounter Care Teams Organ Grinder Relationship Specialty Start Date End Date Jolly London MD [address] [place] [address] [phone] PCP - General Family Medicine 06/29/12 Javier Bneton, PharmD [address] [place] [address] [phone] Pharmacist Internal Medicine 01/14/23 [facility] 04/21/25 documented as of this encounter
--- OUTSIDE RECORDS SUMMARY | 2025-06-27 23:46 | XMS_ITS | Encounter Summary ---
Author Organization [employer] Address [address] [facility] 7t [place] [address] Care Team Providers Care Erosion Control Coordinator Name Role Phone Jolly London MD Primary Care Provider [phone] Javier Benton PharmD Unavailable [phone] Encounter Details Date Type Department Care Team (Latest Contact Info) Description 06/24/2025 Travel Social History Tobacco Use Types Packs/Day [...] Description 07/09/2025 3:30 PM EST Office Visit [facility] [address] [place] [phone] Jolly London MD [address] [place] [address] 09/09/2025 1:00 PM EST Medication Management [facility] [address] [place] [address] Javier Benton, PharmD [address] [place] [address] documented as of this encounter Goals Goal Patient Goal Type Associated Problems Recent Progress Patient-Stated? Author Blood Pressure < 140/90 Blood Pressure 128/60(2024 1:08 PM EST) No Javier Benton, PharmD Help patients [...] Plan Weekly blood pressure task No Lizbeth Moragn RN Patient has chronic kidney disease Care Plan Patient has chronic kidney disease No Lizbeth Morgan RN Patient has chronic kidney disease Care Plan Patient has chronic kidney disease No Lizbeth Morgan RN Weekly blood pressure task Care Plan Weekly blood pressure task No Cotto, Parviz Weekly blood pressure task Care Plan Weekly blood pressure task No Cotto, Parviz Patient has chronic kidney disease Care Plan Patient has chronic kidney disease No Cotto, Parviz Patient has chronic kidney disease Care Plan Patient has chronic kidney disease No Cotto, Parviz Weekly blood pressure task Care Plan Weekly blood pressure task No Sloan, June Weekly blood pressure task Care Plan Weekly blood pressure task No Sloan, June Patient has chronic kidney disease Care Plan Patient has chronic kidney disease No Sloan, June Patient has chronic kidney disease Care Plan Patient has chronic kidney disease No Sloan, June Weekly blood pressure task Care Plan Weekly blood pressure task No Javier Betnon, PharmD Weekly blood pressure task Care Plan Weekly blood pressure task No Javier Benton, PharmD Patient has chronic kidney disease Care Plan Patient has chronic kidney disease No Javier Benton, PharmD Patient has chronic kidney disease Care Plan Patient has chronic kidney disease No Javier Benton, PharmD Weekly blood pressure task Care Plan Weekly blood pressure task No Elsy Sam PharmD Weekly blood pressure task Care Plan Weekly blood pressure task No Elsy Sam, PharmD Patient has chronic kidney disease Care Plan Patient has chronic kidney disease No Elsy Sam, PharmD Patient has chronic kidney disease Care Plan Patient has chronic kidney disease No Elsy Sam PharmD Weekly blood pressure task Care Plan Weekly blood pressure task No Jolly London MD Weekly blood pressure task Care Plan Weekly blood pressure task No Jolly London MD Patient has chronic kidney disease Care Plan Patient has chronic kidney disease No Jolly London MD Patient has chronic kidney disease Care Plan Patient has chronic kidney disease No Jolly London MD Weekly blood pressure task Care Plan Weekly blood pressure task No Javier eBnton, PharmD Weekly blood pressure task Care Plan Weekly blood pressure task No Javier Benton, PharmD Patient has chronic kidney disease Care Plan Patient has chronic kidney disease No Javier Benton PharmD Patient has chronic kidney disease Care Plan Patient has chronic kidney disease No Javier Benton PharmD documented as of this encounter Visit Diagnoses Not on filedocumented in this encounter Additional Health Concerns Active Problems Noted Date [...] kidney disease 06/10/2025 Weekly blood pressure task 06/20/2025 Weekly blood pressure task 06/20/2025 Patient has chronic kidney disease 06/20/2025 Patient has chronic kidney disease 06/20/2025 Weekly blood pressure task 06/21/2025 Weekly blood pressure task 06/21/2025 Patient has chronic kidney disease 06/21/2025 Patient has chronic kidney disease 06/21/2025 Weekly blood pressure task 06/24/2025 Weekly blood pressure task 06/24/2025 Patient has chronic kidney disease 06/24/2025 Patient has chronic kidney disease 06/24/2025 Assessment Noted Time PHQ-9 Depression Total Score: 1 08/13/19 25 3:11 PM EST documented as of this encounter Care Teams Erosion Control Coordinator Relationship Specialty Start Date End Date Jolly London MD [address] [place] [address] PCP - General Family Medicine 06/29/12 Javier Benton, Marc [address] [place] [address] Pharmacist Internal Medicine 01/14/23 [facility] 04/21/25 documented as of this encounter
--- OUTSIDE RECORDS SUMMARY | 2025-06-27 23:46 | XMS_ITS | Encounter Summary ---
Author Organization [employer] Address [address] [facility] 7t [place] [address] Care Team Providers Care Head Pumper Name Role Phone Jolly London MD Primary Care Provider [phone] Javier Benton PharmD Unavailable [phone] Reason for Referral * Consultation (Routine) - Canceled Specialty Diagnoses / Procedures Referred By Contac t Referred To Contact Pharmacy Diagnoses Primary hypertension Type 2 diabetes mellitus with hyperglycemia, without long-term current use of insulin ([facility]) Jolly London MD [address] [place] [address] Phone: tel: fax: Referral ID Status Reason Start Date Expiration Date V isits Requested Visits Authorized [id number] Canceled Consult and Treat 05/29/2024 05/29/2025 6 6 Encounter Details Date Type Department Care Team (Late st Contact Info) Description 05/29/2024 Orders Only [facility] [address] [place] [address] [phone] Jolly London MD [address] [place] [address] [phone] Primary hypertension (Primary Dx); Type 2 diabetes mellitus with hyperglycemia, without long-term current use of insulin ([facility]/HCC) Social History Tobacco Use Types Packs/Day Years [...] Description 07/09/2025 3:30 PM EST Office Visit [facility] [address] [place] [phone] Jolly London MD [address] [place] [address] 09/09/2025 1:00 PM EST Medication Management [facility] [address] [place] [phone] Javier Benton, AreliD [address] [place] [phone] Scheduled Referrals Name Type Priority Associated Diagnoses Orde r Schedule Referral to Pharmacy CDTM Outpatient Referral Routine Primary hypertension Type 2 diabetes mellitus with hyperglycemia, without long-term current use of insulin ([facility]) Ordered: 05/29/2024 documented as of this encounter [...] documented as of this encounter Care Teams Head Pumper Relationship Specialty Start Date End Date Jolly London MD [address] [place] [address] PCP - General Family Medicine 06/29/12 Javier Benton, PharmD [address] [place] [address] Pharmacist Internal Medicine 01/14/23 [facility] 04/21/25 documented as of this encounter
--- OUTSIDE RECORDS SUMMARY | 2025-06-27 23:46 | XMS_ITS | Encounter Summary ---
Author Organization [employer] Address [address] [facility] 7t [place] [address] Care Team Providers Care Risk Management Analyst Name Role Phone Jolly London MD Primary Care Provider [phone] Javier Benton PharmD Unavailable [phone] Encounter Details Date Type Department Care Team (Late st Contact Info) Description 02/28/2023 Orders Only [facility] [address] [place] [address] [phone] Jolly London MD [address] [place] [address] [phone] Anemia of chronic disorder (Primary Dx); Hyperkalemia [...] Description 07/09/2025 3:30 PM EST Office Visit [facility] [address] [place] [address] [phone] Jolly London MD [address] [place] [address] [phone] 09/09/2025 1:00 PM EST Medication Management [facility] [address] [place] [address] Javier Benton, PharmD [address] [place] [address] Scheduled Orders Name Type Priority Associated Diagnoses [...] documented as of this encounter Care Teams Risk Management Analyst Relationship Specialty Start Date End Date Jolly London MD [address] [place] [phone] PCP - General Family Medicine 06/29/12 Javier Benton, PharmD [address] [place] [phone] Pharmacist Internal Medicine 01/14/23 [facility] 04/21/25 documented as of this encounter
--- OUTSIDE RECORDS SUMMARY | 2025-06-27 23:46 | XMS_ITS | Data Portability ---
Author Organization [place] - [facility] Address [address] [place] [address] Assessment Encounter Date Assessment Date Assessment LastModified by Organization Details LastModified Time 01/05/2021 01/05/2021 Pt to provide medical records from Prev PCP at next visit. Consider labs at next f/u [email or web address] Not available 01/05/2021 15:26:09 01/12/2021 01/12/2021 Reviewed records from [place], [place] Date of last visit 10/15/20 Problem list updated. [email or web address] Not available 01/12/2021 13:07:10 01/20/2021 01/20/2021 Reviewed records from [place] Date of last visit 10/15/20 Problem list updated. [email or web address] Not available 01/20/2021 14:07:00 04/10/2021 04/10/2021 Reviewed records from [place], [place] Date of last visit 10/15/20 Problem list updated. [email or web address] Not available 04/13/2021 08:45:42 07/15/2021 07/15/2021 Reviewed records from [place], [place] Date of last visit 10/15/20 Problem list updated. Not available 07/15/2021 15:03:41 Plan of Treatment Reminders Order Date Submit Date Provider Last Modified By Organization Details Last Modified Time Details Appointments None recorded. Lab CBC w/ auto diff 2020 021 [place] [facility], [address] [place], [address], 13:36:40 TIBC (total iron-bindin g capacity), serum 2020 021 [facility] [facility], [address] [place], [address], 13:36:42 CMP, serum or plasma 2020 021 [place] [facility], [address] [place], [address], 13:36:41 lipid panel, serum 2020 021 [facility], [address] [place], [address], 13:36:42 HbA1c (hemoglobin A1c), blood 2020 021 [facility], [address] [place], [address], 13:36:43 microalbumi n/creatinin e, mass ratio, urine 2020 021 [facility], [address] [place], [address], 13:36:43 urinalysis, dipstick [email or web address] [place] [address] Care, [address], [place], [address], 10:24:06 HbA1c (hemoglobin A1c), blood 2020 021 [facility], [address] [place], [address], 13:37:08 microalbumi n/creatinin e, mass ratio, urine 2020 021 [facility], [address] [place], [address], 1 13:37:07 CMP, serum or plasma 2020 021 [place] [facility], [address] [place], [address], 1 13:37:05 lipid panel, serum 2020 021 [place] [facility], [address] [place], [address], 1 13:37:06 CBC w/ auto diff 2020 021 [place] [facility], [address] [place], [address], 1 13:37:04 urinalysis, dipstick 2020 021 [email or web address] [address] [facility], [address], [place], [address], 14:27:26 Referral ENT referral - Reports fullness to left ear. Has insect removal 3 weeks ago- with abrasion . Txd with Ciprodex gtts x 1 week 2020 021 [email or web address] 78 [facility], [address], [place], [address], 2 17:31:06 urologist referral - urinary symptoms hx prostate cancer 2020 021 MARIP[place]A Vazquez MD ([facility]), [address], [place], [address], 14:14:48 Procedures None recorded. Surgeries None recorded. Imaging None recorded. Medication Orders ferrous sulfate 325 mg (65 mg iron) tablet,abel yed release 2020 021 [facility], [address], [place], [address], 15:19:26 Vitamin C 500 mg tablet 2020 [facility], [address], [place], [address], 15:19:24 cyanocobala min (vit B-12) 1,000 mcg tablet 2020 [facility], [address], [place], [address], 15:19:25 glipizide 10 mg tablet 2020 [facility], [address], [place], [address], 15:19:25 metformin 1,000 mg tablet 2020 [facility], [address], [place], [address], 15:19:27 pioglitazon e 45 mg tablet 2020 [facility], [address], [place], [address], 15:19:27 FreeStyle Lite Strips 2020 [facility], [address], [place], [address], 15:19:25 Alcohol Prep Pads 2020 [facility], [address], [place], [address], 15:19:24 atorvastati n 20 mg tablet 2020 [facility], [address], [place], [address], 15:19:25 imipramine 10 mg tablet 2020 [facility], [address], [place], [address], 15:19:24 omeprazole 20 mg capsule,del ayed release 2020 021 [facility], [address], [place], [address], 15:19:26 lisinopril 40 mg tablet 2020 021 [facility], [address], [place], [address], 15:19:27 Adult Low Dose Aspirin 81 mg tablet,abel yed release 2020 [facility], [address], [place], [address], 15:19:25 polyethylen e glycol 3350 17 gram/dose oral powder 2020 [facility], [address], [place], [address], 13:51:07 FreeStyle Lite Strips 2020 [facility], [address], [place], [address], 13:51:07 ketorolac 30 mg/mL (1 mL) injection solution 2020 [email or web address] Not available 14:39:40 DOK 100 mg capsule 2020 [facility], [address] [place], [address], 13:40:44 ferrous sulfate 325 mg (65 mg iron) tablet,abel yed release 2020 021 [facility], [address] [place], [address], 14:11:02 Vitamin C 500 mg tablet 2020 021 [email or web address] 6 [facility], [address] [place], [address], 13:17:44 FreeStyle Lite Strips 2020 021 [facility], [address] [place], [address], 1 14:11:04 Alcohol Prep Pads 2020 021 [email or web address] 6 [facility], [address] [place], [address], 1 13:13:19 Bactrim DS 800 mg-160 mg tablet [email or web address] [place] [address] Pharmacy, [address] [place], [address], 1 15:18:27 Ciprodex 0.3 %-0.1 % ear drops,suspe nsion 2020 [email or web address] [place] [address] Pharmacy, [address] [place], [address], 1 15:04:45 pioglitazon e 45 mg tablet 2020 021 [email or web address] 6 [facility], [address] [place], [address], 09:55:51 atorvastati n 20 mg tablet 2020 021 [email or web address] 6 [facility], [address] [place], [address], 09:54:24 oxybutynin chloride ER 5 mg tablet,exte nded release 24 hr 2020 021 [email or web address] 6 [facility], [address] [place], [address], 1 09:55:30 omeprazole 20 mg capsule,del ayed release 2020 021 [email or web address] 6 [facility], [address] [place], [address], 1 09:55:25 lisinopril 40 mg tablet 2020 021 [email or web address] 6 [facility], [address] [place], [address], 09:55:15 Patient Targets Encounter Date Encounter Id Patient Goals Patient Target Last Modified By Organization Details Last Modified Time 01/05/2021 [id number] see CM plan [email or web address] Not available 01/05/2021 15:25:05 01/12/2021 [id number] see CM plan [email or web address] Not available 01/12/2021 13:19:11 01/20/2021 [id number] See CM Plan [email or web address] Not available 01/20/2021 14:09:48 04/10/2021 [id number] See CM PLan [email or web address] Not available 04/13/2021 08:46:20 07/15/2021 [id number] See CM Plan [email or web address] Not available 07/16/2021 07:55:52 Patient Instructions Encounter Date Encounter Id Patient Instructions Last Modified By Organization Details Last Modified Time 01/05/2021 [id number] Instructed on medications and follow up. Patient is aware of the clinic hours and walk in policy. Alerted patient of call service and how to use it. [email or web address] Not available 01/05/2021 15:25:11 Allergies reviewed. Treatment [...] of care today. Encounter time: 30 min. [email or web address] Not available 01/05/2021 15:25:25 01/12/2021 [id number] Instructed on medications and follow up. Patient is aware of the clinic hours and walk in policy. Alerted patient of call service and how to use it. [email or web address] Not available 01/12/2021 13:19:18 Allergies reviewed. Treatment [...] of care today. Encounter time: 30 min. [email or web address] Not available 01/12/2021 13:19:43 01/20/2021 [id number] Instructed on medications and follow up. Patient is aware of the clinic hours and walk in policy. Alerted patient of call service and how to use it. [email or web address] Not available 01/20/2021 14:09:53 Allergies reviewed. Treatment [...] of care today. Encounter time: 15 min. [email or web address] Not available 01/20/2021 14:10:14 04/10/2021 [id number] mini mental stat e exam [email or web address] Not available 04/10/2021 13:51:03 Instructed on medications and follow up. Patient is aware of the clinic hours and walk in policy. Alerted patient of call service and how to use it. [email or web address] Not available 04/13/2021 08:46:24 Allergies reviewed. Treatment [...] of care today. Encounter time: 15 min. [email or web address] Not available 04/13/2021 08:46:41 07/15/2021 [id number] eating healthy foods: care instructions [email or web address] Not available 07/15/2021 15:19:11 C MO comer alimentos saludables: instrucciones de cuidado - [eating healthy foods: care instructions] [email or web address] Not available 07/15/2021 15:19:11 fall risk assessment* [email or web address] Not available 10/02/2021 09:13:33 Instructed on medications and follow up. Patient is aware of the clinic hours and walk in policy. Alerted patient of call service and how to use it. [email or web address] Not available 07/16/2021 07:55:57 Allergies reviewed. Treatment [...] of care today. Encounter time: 15 min. [email or web address] Not available 07/16/2021 07:56:15 Reason for Referral Urologist Referral for Urina ry symptoms reports urinary symptoms- hx proatate ca. Needs to est. with urologist - rel[place]acted [place] urinary symptoms hx prostate cancer Referring Physician: Carmen Rick [facility], Encounter Date: 01/05/2021 ENT Referral for Abrasion of skin of left ear fullness to left ear. Has insect removal 3 weeks ago- with abrasion . Txd with Ciprodex gtts x 1 wee Reports fullness to left ear. Has insect removal 3 weeks ago- with abrasion . Txd with Ciprodex gtts x 1 week Referring Physician: Carmen Rick [facility], Encounter Date: 01/12/2021 Results Created Date Observation Date Name Description Value Unit Range Abnormal Flag Note LastModifiedBy Organization Detail LastModifiedTime 01/06/20 21 01/05/2021 urina lysis , dipst ick leukocytes 2+ none negati ve abnormal Not Available [facility] [address], [place], [address], 01/05/2021 13:53:20 01/06/20 21 01/05/2021 urina lysis , dipst ick nitrite negati ve none negati ve normal Not Available [facility] [address], [place], [address], 01/05/2021 13:53:20 01/06/20 21 01/05/2021 urina lysis , dipst ick urobilinogen 0.2 eu/dL 0.2-1 normal Not Available [facility] [address], [place], [address], 01/05/2021 13:53:20 01/06/20 21 01/05/2021 urina lysis , dipst ick protein 1+ none negati ve abnormal Not Available [facility] [address], [place], [address], 01/05/2021 13:53:20 01/06/20 21 01/05/2021 urina lysis , dipst ick pH 7.0 none 4.6-8 normal Not Available [facility] [address], [place], [address], 01/05/2021 13:53:20 01/06/20 21 01/05/2021 urina lysis , dipst ick blood 1+ none negati ve abnormal Not Available [facility] [address], [place], [address], 01/05/2021 13:53:20 01/06/20 21 01/05/2021 urina lysis , dipst ick specific gravity 1.025 none 1.007- 1.03 normal Not Available [facility] [address], [place], [address], 01/05/2021 13:53:20 01/06/20 21 01/05/2021 urina lysis , dipst ick ketone negati ve none negati ve normal Not Available [facility] [address], [place], [address], 01/05/2021 13:53:20 01/06/20 21 01/05/2021 urina lysis , dipst ick bilirubin negati ve none negati ve normal Not Available [facility] [address], [place], [address], 01/05/2021 13:53:20 01/06/20 21 01/05/2021 urina lysis , dipst ick glucose negati ve none negati ve normal Not Available [facility] [address], [place], [address], 01/05/2021 13:53:20 01/06/20 21 01/05/2021 urina lysis , dipst ick appearance none clear Not Available [facility] [address], [place], [address], 01/05/2021 13:53:20 01/06/20 21 01/05/2021 urina lysis , dipst ick color yellow none colorl ess-am lloyd normal Not Available [facility] [address], [place], [address], 01/05/2021 13:53:20 01/06/20 21 01/05/2021 urina lysis , dipst ick clarity CLEAR clear normal Not Available [facility] [address], [place], [address], 01/05/2021 13:53:20 01/13/20 21 01/13/2021 CBC WITH DIFFE RENTI AL/PL ATELE T WBC 6.1 x10e3 /uL 3.4-10 .8 Not Available [facility] ([facility]) [address] [place], [address], 01/13/2021 13:37:04 01/13/20 21 01/13/2021 CBC WITH DIFFE RENTI AL/PL ATELE T RBC 4.13 x10e6 /uL 4.14-5 .80 below low normal Not Available [facility] ([facility]) [address] [place], [address], 01/13/2021 13:37:04 01/13/20 21 01/13/2021 CBC WITH DIFFE RENTI AL/PL ATELE T hemoglobin 11.4 g/dL 13.0-1 7.7 below low normal Not Available [facility] ([facility]) [address] [place], [address], 01/13/2021 13:37:04 01/13/20 21 01/13/2021 CBC WITH DIFFE RENTI AL/PL ATELE T hematocrit 34.9 % 37.5-5 1.0 below low normal Not Available [facility] ([facility]) [address] [place], [address], 01/13/2021 13:37:04 01/13/20 21 01/13/2021 CBC WITH DIFFE RENTI AL/PL ATELE T MCV 85 fL 79-97 Not Available [facility] ([facility]) [address] [facility], [place], [address], 01/13/2021 13:37:04 01/13/20 21 01/13/2021 CBC WITH DIFFE RENTI AL/PL ATELE T MCH 27.6 pg 26.6-3 3.0 Not Available [facility] ([facility]) [address] [facility], [place], [address], 01/13/2021 13:37:04 01/13/20 21 01/13/2021 CBC WITH DIFFE RENTI AL/PL ATELE T MCHC 32.7 g/dL 31.5-3 5.7 Not Available [facility] ([facility]) [address] [facility], [place], [address], 01/13/2021 13:37:04 01/13/20 21 01/13/2021 CBC WITH DIFFE RENTI AL/PL ATELE T RDW 14.4 % 11.6-1 5.4 Not Available [facility] ([facility]) [address] [facility], [place], [address], 01/13/2021 13:37:04 01/13/2001/13/2021 CBC WITH DIFFE RENTI AL/PL ATELE T platelets 237 x10e3 /uL 150-45 0 Not Available [facility] ([facility]) [address] [place], [address], 01/13/2021 13:37:04 01/13/20 21 01/13/2021 CBC WITH DIFFE RENTI AL/PL ATELE T neutrophils 59 % not estab. Not Available [facility] ([facility]) [address] [place], [address], 01/13/2021 13:37:04 01/13/20 21 01/13/2021 CBC WITH DIFFE RENTI AL/PL ATELE T lymphs 30 % not estab. Not Available [facility] ([facility]) [address] [facility], [place], [address], 01/13/2021 13:37:04 01/13/20 21 01/13/2021 CBC WITH DIFFE RENTI AL/PL ATELE T monocytes 9 % not estab. Not Available [facility] ([facility]) [address] [facility], [place], [address], 01/13/2021 13:37:04 01/13/20 21 01/13/2021 CBC WITH DIFFE RENTI AL/PL ATELE T eos 1 % not estab. Not Available [facility] ([facility]) [address] [facility], [place], [address], 01/13/2021 13:37:04 01/13/20 21 01/13/2021 CBC WITH DIFFE RENTI AL/PL ATELE T basos 1 % not estab. Not Available [facility] ([facility]) [address] [facility], [place], [address], 01/13/2021 13:37:04 01/13/20 21 01/13/2021 CBC WITH DIFFE RENTI AL/PL ATELE T neutrophils (absolute) 3.6 x10e3 /uL 1.4-7. 0 Not Available [facility] ([facility]) [address] [facility], [place], [address], 01/13/2021 13:37:04 01/13/20 21 01/13/2021 CBC WITH DIFFE RENTI AL/PL ATELE T lymphs (absolute) 1.8 x10e3 /uL 0.7-3. 1 Not Available [facility] ([facility]) [address] [facility], [place], [address], 01/13/2021 13:37:04 01/13/20 21 01/13/2021 CBC WITH DIFFE RENTI AL/PL ATELE T monocytes(ab solute) 0.6 x10e3 /uL 0.1-0. 9 Not Available [facility] ([facility]) [address] [place], [address], 01/13/2021 13:37:04 01/13/20 21 01/13/2021 CBC WITH DIFFE RENTI AL/PL ATELE T eos (absolute) 0.1 x10e3 /uL 0.0-0. 4 Not Available [facility] ([facility]) [address] [facility], [place], [address], 01/13/2021 13:37:04 01/13/20 21 01/13/2021 CBC WITH DIFFE RENTI AL/PL ATELE T baso (absolute) 0.0 x10e3 /uL 0.0-0. 2 Not Available [facility] ([facility]) [address] [place], [address], 01/13/2021 13:37:04 01/13/20 21 01/13/2021 CBC WITH DIFFE RENTI AL/PL ATELE T immature granulocytes 0 % not estab. Not Available [facility] ([facility]) [address] [place], [address], 01/13/2021 13:37:04 01/13/20 21 01/13/2021 CBC WITH DIFFE RENTI AL/PL ATELE T immature grans (abs) 0.0 x10e3 /uL 0.0-0. 1 Not Available [facility] ([facility]) [address] [place], [address], 01/13/2021 13:37:04 01/13/20 21 01/13/2021 COMP. METAB OLIC PANEL (14) glucose 184 mg/dL 65-99 above high normal Not Available [facility] ([facility]) [address] [place], [address], 01/13/2021 13:37:05 01/13/20 21 01/13/2021 COMP. METAB OLIC PANEL (14) BUN 20 mg/dL 8-27 Not Available [facility] ([facility]) [address] [facility], [place], [address], 01/13/2021 13:37:05 01/13/20 21 01/13/2021 COMP. METAB OLIC PANEL (14) creatinine 1.25 mg/dL 0.76-1 .27 Not Available [facility] ([facility]) [address] [facility], [place], [address], 01/13/2021 13:37:05 01/13/20 21 01/13/2021 COMP. METAB OLIC PANEL (14) eGFR if nonafricn AM 53 mL/mi n/1.7 3 >59 below low normal Not Available [facility] ([facility]) [address] [facility], [place], [address], 01/13/2021 13:37:05 01/13/20 21 01/13/2021 COMP. METAB [...] SN Task force . Not Available [facility] ([facility]) [address] [facility], [place], [address], 01/13/2021 13:37:05 01/13/20 21 01/13/2021 COMP. METAB OLIC PANEL (14) BUN/creatini ne ratio 16 10-24 Not Available [facility] ([facility]) [address] [facility], [place], [address], 01/13/2021 13:37:05 01/13/20 21 01/13/2021 COMP. METAB OLIC PANEL (14) sodium 139 mmol/ L 134-14 4 Not Available [facility] ([facility]) [address] [facility] [place], [address], 01/13/2021 13:37:05 01/13/20 21 01/13/2021 COMP. METAB OLIC PANEL (14) potassium 4.9 mmol/ L 3.5-5. 2 Not Available [facility] ([facility]) [address] [place], [address], 01/13/2021 13:37:05 01/13/20 21 01/13/2021 COMP. METAB OLIC PANEL (14) chloride 102 mmol/ L 96-106 Not Available [facility] ([facility]) [address] [place], [address], 01/13/2021 13:37:05 01/13/20 21 01/13/2021 COMP. METAB OLIC PANEL (14) carbon dioxide, total 24 mmol/ L - Not Available [facility] ([facility]) [address] [place], [address], 01/13/2021 13:37:05 01/13/20 21 01/13/2021 COMP. METAB OLIC PANEL (14) calcium 9.2 mg/dL 8.6-10 .2 Not Available [facility] ([facility]) [address] [facility] [place], [address], 01/13/2021 13:37:05 01/13/20 21 01/13/2021 COMP. METAB OLIC PANEL (14) protein, total 6.2 g/dL 6.0-8. 5 Not Available [facility] ([facility]) [address] [facility] [place], [address], 01/13/2021 13:37:05 01/13/20 21 01/13/2021 COMP. METAB OLIC PANEL (14) albumin 4.2 g/dL 3.6-4. 6 Not Available [facility] ([facility]) [address], [place], [address], 01/13/2021 13:37:05 01/13/20 21 01/13/2021 COMP. METAB OLIC PANEL (14) globulin, total 2.0 g/dL 1.5-4. 5 Not Available [facility] ([facility]) [address], [place], [address], 01/13/2021 13:37:05 01/13/20 21 01/13/2021 COMP. METAB OLIC PANEL (14) A/G ratio 2.1 1.2-2. 2 Not Available [facility] ([facility]) [address], [place], [address], 01/13/2021 13:37:05 01/13/20 21 01/13/2021 COMP. METAB OLIC PANEL (14) bilirubin, total 0.3 mg/dL 0.0-1. 2 Not Available [facility] ([facility]) [address], [place], [address], 01/13/2021 13:37:05 01/13/20 21 01/13/2021 COMP. METAB OLIC PANEL (14) alkaline phosphatase 97 IU/L 48-121 Not Available [facility] ([facility]) [address] [facility], [place], [address], 01/13/2021 13:37:05 01/13/20 21 01/13/2021 COMP. METAB OLIC PANEL (14) AST (SGOT) 17 IU/L 0-40 Not Available [facility] ([facility]) [address] [facility], [place], [address], 01/13/2021 13:37:05 01/13/20 21 01/13/2021 COMP. METAB OLIC PANEL (14) ALT (SGPT) 11 IU/L 0-44 Not Available [facility] ([facility]) [address] [facility], [place], [address], 01/13/2021 13:37:05 01/13/20 21 01/13/2021 LIPID PANEL cholesterol, total 143 mg/dL 100-19 9 Not Available [facility] ([facility]) [address] [facility], [place], [address], 01/13/2021 13:37:06 01/13/20 21 01/13/2021 LIPID PANEL triglyceride s 153 mg/dL 0-149 above high normal Not Available [facility] ([facility]) [address] [facility], [place], [address], 01/13/2021 13:37:06 01/13/20 21 01/13/2021 LIPID PANEL HDL cholesterol 40 mg/dL >39 Not Available [facility] ([facility]) [address] [facility], [place], [address], 01/13/2021 13:37:06 01/13/20 21 01/13/2021 LIPID PANEL VLDL cholesterol ishmael 27 mg/dL 5-40 Not Available [facility] ([facility]) [address] [place], [address], 01/13/2021 13:37:06 01/13/20 21 01/13/2021 LIPID PANEL LDL chol calc ([facility]) 76 mg/dL 0-99 Not Available [facility] ([facility]) [address] [place], [address], 01/13/2021 13:37:06 01/13/20 21 01/13/2021 ALBUM IN/CR EAT RATIO , RANDO M UR creatinine, urine 155.9 mg/dL not estab. Not Available [facility] ([facility]) [address] [place], [address], 01/13/2021 13:37:07 01/13/20 21 01/13/2021 ALBUM IN/CR EAT RATIO , RANDO M UR albumin, urine 25.7 ug/mL not estab. Not Available [facility] ([facility]) [address] [facility], [place], [address], 01/13/2021 13:37:07 01/13/20 21 01/13/2021 ALBUM IN/CR EAT RATIO , GURINDER García UR alb/creat ratio 16 mg/g_ creat 0-29 María l: 0 - 29 Moder ately incre ased: 30 - 300 Sever royal incre ased: >300 Not Available [facility] ([facility]) [address] [facility], [place], [address], 01/13/2021 13:37:07 01/13/20 21 01/13/2021 HEMOG LOBIN A1C hemoglobin A1C 6.8 % 4.8-5. 6 above high normal . Predi abete s: 5.7 - 6.4 Diabe chel: >6.4 Glyce ad contr ol for adult s with diabe chel: <7.0 Not Available [facility] ([facility]) [address] [facility], [place], [address], 01/13/2021 13:37:08 01/13/20 21 01/12/2021 urina lysis , dipst ick leukocytes trace none negati ve abnormal Not Available [facility] [address], [place], [address], 01/12/2021 10:14:17 01/13/20 21 01/12/2021 urina lysis , dipst ick nitrite negati ve none negati ve normal Not Available [facility] [address], [place], [address], 01/12/2021 10:14:17 01/13/20 21 01/12/2021 urina lysis , dipst ick urobilinogen 0.2 eu/dL 0.2-1 normal Not Available [facility] [address], [place], [address], 01/12/2021 10:14:17 01/13/20 21 01/12/2021 urina lysis , dipst ick protein negati ve none negati ve normal Not Available [facility] [address], [place], [address], 01/12/2021 10:14:17 01/13/20 21 01/12/2021 urina lysis , dipst ick pH 5.5 none 4.6-8 normal Not Available [facility] [address], [place], [address], 01/12/2021 10:14:17 01/13/20 21 01/12/2021 urina lysis , dipst ick blood negati ve none negati ve normal Not Available [facility] [address], [place], [address], 01/12/2021 10:14:17 01/13/20 21 01/12/2021 urina lysis , dipst ick specific gravity 1.025 none 1.007- 1.03 normal Not Available [facility] [address], [place], [address], 01/12/2021 10:14:17 01/13/20 21 01/12/2021 urina lysis , dipst ick ketone negati ve none negati ve normal Not Available [facility] [address], [place], [address], 01/12/2021 10:14:17 01/13/20 21 01/12/2021 urina lysis , dipst ick bilirubin negati ve none negati ve normal Not Available [facility] [address], [place], [address], 01/12/2021 10:14:17 01/13/20 21 01/12/2021 urina lysis , dipst ick glucose negati ve none negati ve normal Not Available [facility] [address], [place], [address], 01/12/2021 10:14:17 01/13/20 21 01/12/2021 urina lysis , dipst ick appearance none clear Not Available [facility] [address], [place], [address], 01/12/2021 10:14:17 01/13/20 21 01/12/2021 urina lysis , dipst ick color yellow none colorl ess-am lloyd normal Not Available [facility] [address], [place], [address], 01/12/2021 10:14:17 01/13/20 21 01/12/2021 urina lysis , dipst ick clarity CLEAR clear normal Not Available [facility] [address], [place], [address], 01/12/2021 10:14:17 07/15/20 21 07/16/2021 CBC WITH DIFFE RENTI AL/PL ATELE T WBC 5.4 x10e3 /uL 3.4-10 .8 Not Available [facility] ([facility]) [address] [place], [address], 07/16/2021 13:36:40 07/15/20 21 07/16/2021 CBC WITH DIFFE RENTI AL/PL ATELE T RBC 4.44 x10e6 /uL 4.14-5 .80 Not Available [facility] ([facility]) [address] [place], [address], 07/16/2021 13:36:40 07/15/20 21 07/16/2021 CBC WITH DIFFE RENTI AL/PL ATELE T hemoglobin 11.8 g/dL 13.0-1 7.7 below low normal Not Available [facility] ([facility]) [address] [place], [address], 07/16/2021 13:36:40 07/15/20 21 07/16/2021 CBC WITH DIFFE RENTI AL/PL ATELE T hematocrit 36.8 % 37.5-5 1.0 below low normal Not Available [facility] ([facility]) [address] [facility], [place], [address], 07/16/2021 13:36:40 07/15/20 21 07/16/2021 CBC WITH DIFFE RENTI AL/PL ATELE T MCV 83 fL 79-97 Not Available [facility] ([facility]) [address] [facility], [place], [address], 07/16/2021 13:36:40 07/15/20 21 07/16/2021 CBC WITH DIFFE RENTI AL/PL ATELE T MCH 26.6 pg 26.6-3 3.0 Not Available [facility] ([facility]) [address] [facility], [place], [address], 07/16/2021 13:36:40 07/15/20 21 07/16/2021 CBC WITH DIFFE RENTI AL/PL ATELE T MCHC 32.1 g/dL 31.5-3 5.7 Not Available [facility] ([facility]) [address] [place], [address], 07/16/2021 13:36:40 07/15/20 21 07/16/2021 CBC WITH DIFFE RENTI AL/PL ATELE T RDW 15.4 % 11.6-1 5.4 Not Available [facility] ([facility]) [address] [place], [address], 07/16/2021 13:36:40 07/15/20 21 07/16/2021 CBC WITH DIFFE RENTI AL/PL ATELE T platelets 224 x10e3 /uL 150-45 0 Not Available [facility] ([facility]) [address] [place], [address], 07/16/2021 13:36:40 07/15/20 21 07/16/2021 CBC WITH DIFFE RENTI AL/PL ATELE T neutrophils 60 % not estab. Not Available [facility] ([facility]) [address] [facility], [place], [address], 07/16/2021 13:36:40 07/15/20 21 07/16/2021 CBC WITH DIFFE RENTI AL/PL ATELE T lymphs 28 % not estab. Not Available [facility] ([facility]) [address] [facility], [place], [address], 07/16/2021 13:36:40 07/15/20 21 07/16/2021 CBC WITH DIFFE RENTI AL/PL ATELE T monocytes 11 % not estab. Not Available [facility] ([facility]) [address] [facility], [place], [address], 07/16/2021 13:36:40 07/15/20 21 07/16/2021 CBC WITH DIFFE RENTI AL/PL ATELE T eos 1 % not estab. Not Available [facility] ([facility]) [address] [facility], [place], [address], 07/16/2021 13:36:40 07/15/20 21 07/16/2021 CBC WITH DIFFE RENTI AL/PL ATELE T basos 0 % not estab. Not Available [facility] ([facility]) [address] [facility], [place], [address], 07/16/2021 13:36:40 07/15/20 21 07/16/2021 CBC WITH DIFFE RENTI AL/PL ATELE T neutrophils (absolute) 3.1 x10e3 /uL 1.4-7. 0 Not Available [facility] ([facility]) [address] [facility], [place], [address], 07/16/2021 13:36:40 07/15/20 21 07/16/2021 CBC WITH DIFFE RENTI AL/PL ATELE T lymphs (absolute) 1.5 x10e3 /uL 0.7-3. 1 Not Available [facility] ([facility]) [address] [facility], [place], [address], 07/16/2021 13:36:40 07/15/20 21 07/16/2021 CBC WITH DIFFE RENTI AL/PL ATELE T monocytes(ab solute) 0.6 x10e3 /uL 0.1-0. 9 Not Available [facility] ([facility]) [address] [facility], [place], [address], 07/16/2021 13:36:40 07/15/20 21 07/16/2021 CBC WITH DIFFE RENTI AL/PL ATELE T eos (absolute) 0.1 x10e3 /uL 0.0-0. 4 Not Available [facility] ([facility]) [address] [facility], [place], [address], 07/16/2021 13:36:40 07/15/20 21 07/16/2021 CBC WITH DIFFE RENTI AL/PL ATELE T baso (absolute) 0.0 x10e3 /uL 0.0-0. 2 Not Available [facility] ([facility]) [address] [place], [address], 07/16/2021 13:36:40 07/15/20 21 07/16/2021 CBC WITH DIFFE RENTI AL/PL ATELE T immature granulocytes 0 % not estab. Not Available [facility] ([facility]) [address] [facility], [place], [address], 07/16/2021 13:36:40 07/15/20 21 07/16/2021 CBC WITH DIFFE RENTI AL/PL ATELE T immature grans (abs) 0.0 x10e3 /uL 0.0-0. 1 Not Available [facility] ([facility]) [address] [place], [address], 07/16/2021 13:36:40 07/15/20 21 07/16/2021 COMP. METAB OLIC PANEL (14) glucose 133 mg/dL 65-99 above high normal Not Available [facility] ([facility]) [address] [facility], [place], [address], 07/16/2021 13:36:41 07/15/20 21 07/16/2021 COMP. METAB OLIC PANEL (14) BUN 15 mg/dL 8-27 Not Available [facility] ([facility]) [address] [facility], [place], [address], 07/16/2021 13:36:41 07/15/20 21 07/16/2021 COMP. METAB OLIC PANEL (14) creatinine 1.08 mg/dL 0.76-1 .27 Not Available [facility] ([facility]) [address] [facility], [place], [address], 07/16/2021 13:36:41 07/15/20 21 07/16/2021 COMP. METAB OLIC PANEL (14) eGFR if nonafricn AM 63 mL/mi n/1.7 3 >59 Not Available [facility] ([facility]) [address] [facility], [place], [address], 07/16/2021 13:36:41 07/15/20 21 07/16/2021 COMP. METAB [...] a race varia ble. Not Available [facility] ([facility]) [address] [facility], [place], [address], 07/16/2021 13:36:41 07/15/20 21 07/16/2021 COMP. METAB OLIC PANEL (14) BUN/creatini ne ratio 14 10-24 Not Available [facility] ([facility]) [address] [facility], [place], [address], 07/16/2021 13:36:41 07/15/20 21 07/16/2021 COMP. METAB OLIC PANEL (14) sodium 145 mmol/ L 134-14 4 above high normal Not Available [facility] ([facility]) [address] [facility] [place], [address], 07/16/2021 13:36:41 07/15/20 21 07/16/2021 COMP. METAB OLIC PANEL (14) potassium 4.2 mmol/ L 3.5-5. 2 Not Available [facility] ([facility]) [address] [facility] [place], [address], 07/16/2021 13:36:41 07/15/20 21 07/16/2021 COMP. METAB OLIC PANEL (14) chloride 104 mmol/ L 96-106 Not Available [facility] ([facility]) [address] [facility] [place], [address], 07/16/2021 13:36:41 07/15/20 21 07/16/2021 COMP. METAB OLIC PANEL (14) carbon dioxide, total 24 mmol/ L - Not Available [facility] ([facility]) [address] [facility] [place], [address], 07/16/2021 13:36:41 07/15/20 21 07/16/2021 COMP. METAB OLIC PANEL (14) calcium 8.8 mg/dL 8.6-10 .2 Not Available [facility] ([facility]) [address] [facility] [place], [address], 07/16/2021 13:36:41 07/15/20 21 07/16/2021 COMP. METAB OLIC PANEL (14) protein, total 6.4 g/dL 6.0-8. 5 Not Available [facility] ([facility]) [address] [facility] [place], [address], 07/16/2021 13:36:41 07/15/20 21 07/16/2021 COMP. METAB OLIC PANEL (14) albumin 4.2 g/dL 3.6-4. 6 Not Available [facility] ([facility]) [address] [facility], [place], [address], 07/16/2021 13:36:41 07/15/20 21 07/16/2021 COMP. METAB OLIC PANEL (14) globulin, total 2.2 g/dL 1.5-4. 5 Not Available [facility] ([facility]) [address] [facility], [place], [address], 07/16/2021 13:36:41 07/15/20 21 07/16/2021 COMP. METAB OLIC PANEL (14) A/G ratio 1.9 1.2-2. 2 Not Available [facility] ([facility]) [address] [facility], [place], [address], 07/16/2021 13:36:41 07/15/20 21 07/16/2021 COMP. METAB OLIC PANEL (14) bilirubin, total 0.5 mg/dL 0.0-1. 2 Not Available [facility] ([facility]) [address] [facility], [place], [address], 07/16/2021 13:36:41 07/15/20 21 07/16/2021 COMP. METAB OLIC PANEL (14) alkaline phosphatase 100 IU/L 44-121 Ple ase note refer ence inter loli chinchilla e Not Available [facility] ([facility]) [address] [facility], [place], [address], 07/16/2021 13:36:41 07/15/20 21 07/16/2021 COMP. METAB OLIC PANEL (14) AST (SGOT) 15 IU/L 0-40 Not Available [facility] ([facility]) [address] [facility], [place], [address], 07/16/2021 13:36:41 07/15/20 21 07/16/2021 COMP. METAB OLIC PANEL (14) ALT (SGPT) 12 IU/L 0-44 Not Available [facility] ([facility]) [address] [place], [address], 07/16/2021 13:36:41 07/15/20 21 07/16/2021 LIPID PANEL cholesterol, total 198 mg/dL 100-19 9 Not Available [facility] ([facility]) [address] [place], [address], 07/16/2021 13:36:42 07/15/20 21 07/16/2021 LIPID PANEL triglyceride s 219 mg/dL 0-149 above high normal Not Available [facility] ([facility]) [address] [place], [address], 07/16/2021 13:36:42 07/15/20 21 07/16/2021 LIPID PANEL HDL cholesterol 50 mg/dL >39 Not Available [facility] ([facility]) [address] [place], [address], 07/16/2021 13:36:42 07/15/20 21 07/16/2021 LIPID PANEL VLDL cholesterol ishmael 38 mg/dL 5-40 Not Available [facility] ([facility]) [address] [place], [address], 07/16/2021 13:36:42 07/15/20 21 07/16/2021 LIPID PANEL LDL chol calc ([facility]) 110 mg/dL 0-99 above high normal Not Available [facility] ([facility]) [address] [place], [address], 07/16/2021 13:36:42 07/15/20 21 07/16/2021 IRON AND TIBC iron bind.cap.(TI BC) 256 ug/dL 250-45 0 Not Available [facility] ([facility]) [address] [place], [address], 07/16/2021 13:36:42 07/15/20 21 07/16/2021 IRON AND TIBC UIBC 204 ug/dL 111-34 3 Not Available [facility] ([facility]) [address] [place], [address], 07/16/2021 13:36:42 07/15/20 21 07/16/2021 IRON AND TIBC iron 52 ug/dL 38-169 Not Available [facility] ([facility]) [address] [facility], [place], [address], 07/16/2021 13:36:42 07/15/20 21 07/16/2021 IRON AND TIBC iron saturation 20 % 15-55 Not Available [facility] ([facility]) [address] [place], [address], 07/16/2021 13:36:42 07/15/20 21 07/16/2021 ALBUM IN/CR EAT RATIO , GURINDER García UR creatinine, urine 158.2 mg/dL not estab. Not Available [facility] ([facility]) [address] [place], [address], 07/16/2021 13:36:43 07/15/20 21 07/16/2021 ALBUM IN/CR EAT RATIO , GURINDERO M UR albumin, urine 36.1 ug/mL not estab. Not Available [facility] ([facility]) [address] [place], [address], 07/16/2021 13:36:43 07/15/20 21 07/16/2021 ALBUM IN/CR EAT RATIO , RANDO M UR alb/creat ratio 23 mg/g_ creat 0-29 María l: 0 - 29 Moder ately incre ased: 30 - 300 Sever royal incre ased: >300 Not Available [facility] ([facility]) [address] [place], [address], 07/16/2021 13:36:43 07/15/2007/16/2021 HEMOG LOBIN A1C hemoglobin A1C 6.9 % 4.8-5. 6 above high normal . Predi abete s: 5.7 - 6.4 Diabe chel: >6.4 Glyce ad contr ol for adult s with diabe chel: <7.0 Not Available [facility] ([facility]) [address], [place], [address], 07/16/2021 13:36:43 Result Notes None recorded. Problems Name Problem SNOMED Code Status Onset Date Resolution Date Notes Provider Name and Address Organization Details Recorded Time Essential hypertensi on 50046752 Active 2020 Li Collins [facility] 13:49:58 Diabetes mellitus 85601419 Active 2020 type2 Carmen Rick APRN [address] [place], [place], [address] [place] [address] , [facility] 13:05:29 Hyperlipid emia 13568332 Active 2020 Lijeff Garridoers [facility] 13:50:22 Primary malignant neoplasm of prostate 07162039 Active 2020 Li Dennis [facility] 13:50:55 Polyp of colon 04810747 Active 2020 Carmen Rick APRN [address] [place], [place], [address] [place] [address] , [facility] 13:04:06 Anemia of chronic disease 380343664 Active 2020 Carmen Rick APRN [address] [place], [place], [address] [place] [address] , [facility] 13:04:48 Neurogenic urinary bladder 014538344 Active 2020 Carmen Rick APRN [address] [place], [address], [facility] 13:05:03 Gastroesop hageal reflux disease 129159910 Active 2020 Carmen Rick APRN [address] [place], [place], [address] [place] [address], [facility] 13:05:34 History of Helicobact er pylori infection 2779578967449 9108 Active 2020 Carmen Rick APRN [address] [place], [place], [address] [place] [address], [facility] 13:06:09 Sensorineu ral hearing loss of bilateral ears 603662257 Active 2020 Carmen Rick APRN [address] 13:06:24 Pain of left shoulder joint 0992428840225 9109 Active 2020 Carmen Rick APRN [address] [place] [address] , [facility], [facility] 13:14:51 Bilateral knee pain Active 2020 Carmen Rick APRN [address], [facility] 08:45:58 Memory impairment 112400066 Active 2020 Carmen Rick APRN [address] [place] [address], [facility] 08:46:00 Hematochez ia 091461677 Active 2020 Carmen Rick APRN [address] 08:46:01 Chronic constipati on 512535001 Active 2020 Carmen Rick APRN [address] [facility] 08:46:06 Hemoglobin below reference range 069430663 Active 2020 Carmen Rick APRN [address] [place], [place], [address] [place] [address] 08:46:07 Type 2 diabetes mellitus 45246604 Active 2020 Carmen Rick APRN [address] [place], [place], [address] [place] [address] 07:54:27 Urinary symptoms 672269970 Active 2020 Carmen Rick APRN [address] [place], [place], [address] [place] [address] 07:54:29 Obesity 372756899 Active 2020 Carmen Rick APRN [address] [place], [place], [address] [place] [address] 07:54:31 Dyslipidem ia 052306362 Active 2020 Carmen Rick APRN [address] [place], [place], [address] [place] [address] 07:54:38 Gastroesop hageal reflux disease without esophagiti s 351086577 Active 2020 Carmen Rick APRN [address] [place], [place], [address] [place] [address] 07:54:55 Tobacco dependence in remission 597444452 Active 2020 Carmen Rick APRN [address] [place], [place], [address] [place] [address] 07:54:57 Vaccine declined by patient 057158527726 Active 2020 Carmen Rick APRN [address] [place], [place], [address] [place] [address] , [facility] 07:55:21 Advance directive discussed with patient 890047637 Active 2020 Carmen Rick APRN [address] [place], [place], [address] [place] [address] 07:55:23 At increased risk for falls 283116308 Active 2020 Carmen Rick APRN [address] 07:55:24 Secondary immune deficiency disorder 82688911 Active 2020 Carmen Rick APRN [address] [place], [place], [address] [place] [address] 07:56:40 Problem Notes None recorded. Procedures Surgical History Date Name Laterality Status Provider Name and Address Organization Details Recorded Time 8 prostatectomy completed [facility] 01/05/2021 13:52:29 Imaging Results None recorded. Procedure Notes None recorded. Medical Equipment None Reported. Allergies Allergen ID Allergen Name Allergen Category Reaction Reaction Severity Criticality Documentation Date Start Date Code Code System Note Provider Name and Address Organization Details Recorded Time 17086 oxycodone medicatio n Not available Not available Not available 01/05/2021 7804 RxNorm [facility] 13:46:10 Medications Name Sig Start Date [...] Address Organization Details Last Updated DateTime 1 43545.6 4 g 32.3 kg/m2 156.21 cm 97.6 [degF] 98 % 97 /min 18 /min 129/68 mm[Hg] Li Collins [facility] 13:45:40 Date Recorded Body height Body mass index (BMI) Body weight Heart rate Respiratory rate Body temperature Oxygen saturation Systolic And Diastolic Provider Name and Address Organization Details Last Updated DateTime 1 156.21 cm 31.8 kg/m2 73365.3 g 98 /min 17 /min 98 [degF] 97 % 126/76 mm[Hg] [facility] 09:52:13 Date Recorded Body height Body mass index (BMI) Body weight Provider Name and Address Organization Details Last Updated DateTime 01/20/2021 156.21 cm 31.6 kg/m2 40437.7 g Liyahemma Lockhart [facility] 01/20/2021 13:41:21 Date Recorded Body height Body mass index (BMI) Body weight Respiratory rate Body temperature Oxygen saturation Heart rate Systolic And Diastolic Provider Name and Address Organization Details Last Updated DateTime 1 156.21 cm 32 kg/m2 48619.8 9 g 18 /min 98.3 [degF] 99 % 77 /min 122/78 mm[Hg] [facility] 13:12:46 Date Recorded Body height Body mass index (BMI) Body weight Heart rate Respiratory rate Body temperature Oxygen saturation Systolic And Diastolic Provider Name and Address Organization Details Last Updated DateTime 1 156.21 cm 32 kg/m2 81751.5 9 g 96 /min 18 /min 98.1 [degF] 97 % 124/81 mm[Hg] Mylene Snell [facility] 14:57:50 Social History Question Answer Notes LastModified by Organizat ion Details LastModified Time Tobacco Smoking Status Never Smoker Li Collins [facility] 01/05/2021 13:51:55 Medical Terms Are Complicated, And Many People Find The Words Difficult To Understand. Do You Ever Get Help From Others In Filling Out Forms, Reading Prescription Labels, Insurance Forms, Or Health Education Sheets? Often [email or web address] Information no t available 01/12/2021 Are You Worried About Losing Your Housing? 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 No [email or web address] Information n ot available 01/12/2021 In The Past Year Have You Or Any Of Your Family Members Been Unable To Get CLOTHING When It Was Really Needed? No [email or web address] Information n ot available 01/12/2021 In The Past Year Have You Or Any Of Your Family Members Been Unable To Get FOOD When It Was Really Needed? No [email or web address] Information not available 01/12/2021 In The Past Year Have You Or Any Of Your Family Members Been Unable To Get MEDICINE Or HEALTH CARE When It Was Really Needed? No Information not available 01/12/2021 In The Past Year Have You Or Any Of Your Family Members Been Unable To Get PHONE When It Was Really Needed? No [email or web address] Information not available 01/12/2021 In The Past Year Have You Or Any Of Your Family Members Been Unable To Get UTILITIES When It Was Really Needed? No [email or web address] Information n ot available 01/12/2021 Has Lack Of Transportation Kept You From Medical Appointments, Meetings, Work, Or From Getting Things Needed For Daily Living? No [email or web address] Information not available 01/12/2021 In The Past Year Have You Or Any Of Your Family Members Been Unable To Get OTHER NECESSITIES When It Was Really Needed? No [email or web address] Information not available 01/12/2021 How Often Do You See Or Talk To People That You Care About And Feel Close To? 3 To 5 Times A Week Information not available 01/12/2021 How Stressed Are You? Somewhat Information not available 01/12/2021 In The Past Year, Have You Spent More Than 2 Nights In A Row In A Retirement, Halfway, Custodial Center, Or Juvenile Correctional Facility? No [email or web address] Information not available 01/12/2021 Are You A Refugee? No [email or web address] Inform ation not available 01/12/2021 Do You Feel Physically And Emotionally Safe Where You Currently Live? Yes [email or web address] Information not available 01/12/2021 What Was The Date Of Your Most Recent Tobacco Screening? 07/15/2021 [email or web address] Information n ot available 07/15/2021 Sex: Male Functional Status Question Answer Note LastModified by Organization D etails LastModified Time Do you or have you ever used any other forms of tobacco or nicotine? No [email or web address] Information not available 01/05/2021 What is your occupation? N/A [email or web address] Information not available 01/05/2021 Mental Status None recorded. Family History Relationship Description Onset Age of this Age Resolved Age Notes LastModified by Organization Details LastModified Time Mother Family history of stroke [email or web address] Not available 01/05 13:51:17 Father History of emphysema [email or web address] Not available 01/05 13:51:37 Father Family history of stroke [email or web address] Not available 01/05 13:51:40 Notes:. Medical History Condition Response Diabetes Y Hypertension Y High Cholesterol Y Immunizations Vaccine Type Date Status Note Provider Nam e and Address Organization Details Recorded Time COVID-19, mRNA, LNP-S, PF, 100 mcg/0.5mL dose or 50 mcg/0.25mL dose 09/25/2020 completed Kerwin Anaya [facility] 04/10/2021 13:13:04 Influenza, high-dose, quadrivalent, PF 03/31/2021 completed Mylene Snell [facility] 07/15/2021 14:58:12 Past Encounters Encounter ID Performer Location Encounter Start Date Encounter Closed Date Diagnosis/Indication Diagnosis SNOMED-CT Code Diagnosis ICD10 Code Diagnosis IMO Codes Diagnosis Note [id number] Carmen Rick APRN [facility] [address] [place] [address] 01/05/2021 13:30:14 01/05/2021 14:52:38 Obesity 582964058 E66.9 Diet education 11867171 Z71.3 Urinary symptoms 1324499 08 R39.9 burning with urgency.Hx prostatect jose luis Abrasion o f skin of left ear [id number] 5996155 S00.412A Avoid Q- Tips.Hx Insect Left ear s/p removal 3 weeks ago. Type 2 dom betes mellitus 32102479 E11.9 Reports glucose under control Dyslipidemia 194010759 E 78.5 Pt to bring in records from prev. PCP Essential hypertension 55758156 I10 BP: 129/68 Dribbling of urine 71329 000 N39.43 REfill requested. Urology referral placed Gastroesop hageal reflux disease without esophagitis 370842496 K21.9 STable Acute urin willis tract infection 849953157 N39.0 UA with 2+ LE's, protein and 1+ blood.Rx Bactrim. [id number] Carmen Rick, METEOROLOGICAL OBSERVER [facility] [address] [place] [address] 01/12/2021 09:41:48 01/12/2021 10:40:58 Obesity 416910727 E66.9 Diet education 50813567 Z71.3 Urinary symptoms 7011593 08 R39.9 burning with urgency.Hx prostatect omyUrology referral [email or web address] Completed course of abx after (+) UA.UA recheck today Abrasion o f skin of left ear [id number] 9828583 S00.412A Avoid Q- Tips.Hx Insect Left ear s/p removal 3 weeks ago. 01/12: Left Ear improved - reports fullness . Cerumen has softened, still with dried blood to left ear canal partially obscuring the TM. Type 2 dom betes mellitus 39090270 E11.9 Reports glucose under controlPer medical records 10/15/20: HgbA1c 7.7. Onmetformi n 100mg po BID, Actos 45mg daily and Glipizide 10mg po BID. Dyslipidemia 589145144 E 78.5 Lipitor 20mg at HS Essential hypertension 40216946 I10 BP 126/76 Follow Low salt diet.On Lisinopril 40mg po daily , was on Amlodipine 10mg po daily?Dorothea y ASA 81mg Dribbling of urine 29836 000 N39.43 REfill requested. Urology referral placed Gastroesop hageal reflux disease without esophagitis 607256682 K21.9 STable Acute urin willis tract infection 415332403 N39.0 UA with 2+ LE's, protein and 1+ blood.Rx Bactrim. 01/12/21 improved recheck UA today Tobacco de pendence in remission 124519675 F17.201 Primary ma lignant neoplasm of prostate 38145157 C61 Dx in 1992, s/p prostatect jose luis in [place] [address]. Urologist Dr Jayna maldonado , last seen Apr 2020. Hx hypogonadi sm, neurogenic bladder and recurrent UTI.Last PSA 0.11 05/01/19 Neurogenic urinary bladder 791153292 N31.9 Last seen by urol 05/06. Impramine 10mg po BID and Oxybutnin 5mg at HS Pain of le ft shoulder joint 8174319051 8315652 M25.512 mild joint arthritis per imaging 09/2017He declined PT previously . [id number] Carmen Rick APRN [facility] [address] [place] [address] 01/20/2021 13:34:36 01/20/2021 15:33:54 Obesity 125224723 E66.9 Diet education 73631158 Z71.3 Urinary symptoms 0823464 08 R39.9 burning with urgency.Hx prostatect omyUrology referral [id number] Completed course of abx after (+) UA.UA recheck today 01/20/21 UA with trace LE's. No blood. Referral approved to see Dr. Vazquez- pt to schedule appt. Abrasion o f skin of left ear 8556644991 4084431 S00.412A Avoid Q- Tips.Hx Insect Left ear s/p removal 3 weeks ago. 01/12: Left Ear improved - reports fullness . Cerumen has softened, still with dried blood to left ear canal partially obscuring the TM. 01/20/21 Referral to ENT/ [facility] approved. Type 2 dom betes mellitus 19662306 E11.9 Reports glucose under controlPer medical records 10/15/20: HgbA1c 7.7. On metformin 100mg po BID, Actos 45mg daily and Glipizide 10mg po BID. 01/20/21 HgbA1c: 6.8. Cont with current med regimen. On metformin 100mg po BID, Actos 45mg daily and Glipizide 10mg po BID. Dyslipidemia 067924355 E 78.5 Lipitor 20mg at HS01/20/21 Tot chol. 143, Trig 153, LDL 76Cont with Lipitor 20mg at HS Essential hypertension 43391618 I10 BP 126/76 Follow Low salt diet.On Lisinopril 40mg po daily , was on Amlodipine 10mg po daily?Dorothea y ASA 81mg 01/20/21 Cont with current med regimen Dribbling of urine 84254 000 N39.43 REfill requested. Urology referral [id number] 01/05: To see Dr. Vazquez Gastrogavinop hageal reflux disease without esophagitis 017970498 K21.9 STable Acute urin willis tract infection 310031789 N39.0 UA with 2+ LE's, protein and 1+ blood.Rx Bactrim. 01/12/21 improved recheck UA today 01/20/21: UA with trace LE's, no Blood. Tobacco de pendence in remission 075319410 F17.201 Primary ma lignant neoplasm of prostate 38023010 C61 Dx in 1992, s/p prostatect jose luis in [place] 1992. Urologist Dr Jyana maldonado , last seen Apr 2020. Hx hypogonadi sm, neurogenic bladder and recurrent UTI.Last PSA 0.11 05/01/19 Neurogenic urinary bladder 626847735 N31.9 Last seen by urol 05/06. Impramine 10mg po BID and Oxybutnin 5mg at HS Pain of le ft shoulder joint 6413232516 0840605 M25.512 mild joint arthritis per imaging 09/2017He declined PT previously . Hemoglobin below reference range 117232235 D64.9 Hgb 11.4, HCT 34.9. Normal MCV and MCH. Hx anemia of chronic diseasePt case entered for Fe Panel, Ferritin , & FIT Chronic constipation 236 262656 K59.09 Test resul t to patient by telephone 945746007 Z71.2 Labs reviewed [id number] Carmen Rick APRN [facility] [address] [place] [address] 04/10/2021 12:47:04 04/10/2021 13:55:11 Obesity 957257582 E66.9 Pt educated on importance of lifestyle modificati on which should include but not limited to an exercise regime and diet modificati on as discussed on visit. Diet education 06961825 Z71.3 Urinary symptoms 7693153 08 R39.9 burning with urgency.Hx prostatect omyUrology referral [id number] Completed course of abx after (+) UA.UA recheck today 01/20/21 UA with trace LE's. No blood. Referral approved to see Dr. Vazquez- pt to schedule appt. 04/10/21 Prostate f/u, pt reports he has frequency and blood coming from his rectum.-He needs GI/PCP for his constipati on and blood per rectum.Potrero el regimen discussed as it can also be worsen his LUTS.Sampl e of myrbetriq given for his LUTSF/U: in 4 weeksPt reports improvemen t of LUTS Abrasion o f skin of left ear 7548053449 2632500 S00.412A Avoid Q- Tips.Hx Insect Left ear s/p removal 3 weeks ago. 01/12: Left Ear improved - reports fullness . Cerumen has softened, still with dried blood to left ear canal partially obscuring the TM. 01/20/21 Referral to ENT/ [facility] approved. 04/10/21 ENT f/u completed. FB removed. Type 2 dom betes mellitus 54045423 E11.9 Reports glucose under controlPer medical records 10/15/20: HgbA1c 7.7. On metformin 100mg po BID, Actos 45mg daily and Glipizide 10mg po BID. 01/20/21 HgbA1c: 6.8. Cont with current med regimen. On metformin 100mg po BID, Actos 45mg daily and Glipizide 10mg po BID. 04/10/21 c/w metformin 100mg po BID, Actos 45mg daily and Glipizide 10mg po BID. Dyslipidemia 218949629 E 78.5 Lipitor 20mg at HS01/20/21 Tot chol. 143, Trig 153, LDL 76Cont with Lipitor 20mg at HS Essential hypertension 20870015 I10 BP 126/76 Follow Low salt diet.On Lisinopril 40mg po daily , was on Amlodipine 10mg po daily?Dorothea y ASA 81mg 01/20/21 Cont with current med regimenBP mbviud21/2 11/05 stop amlodipine 10mg po daily ? 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 Urologist Dr Dorantes i , last seen Apr 2020. Hx hypogonadi sm, neurogenic bladder and recurrent UTI.Last PSA 0.11 05/01/1909 Urology appt completed for LUTS Neurogenic urinary bladder 019927022 N31.9 Last seen by urol 05/06. Impramine 10mg po BID and Oxybutnin 5mg at HS Pain of le ft shoulder joint 3156664535 1237343 M25.512 mild joint arthritis per imaging 09/2017He declined PT previously . Hemoglobin below reference range 285067966 D64.9 Hgb 11.4, HCT 34.9. Normal MCV and MCH. Hx anemia of chronic diseasePt case entered for Fe Panel, Ferritin , & FIT Chronic constipation 236 848263 K59.09 No improvemen t with Colace Hematochezia 633241032 K 92.1 CBC 01/12/21 with Hgb 11.4, Hct 34.9Pt reporting rectal bleeding to urologistG I referral provided to pt in person Memory impairment 106598 006 R41.3 MMSE 24Dtr reported concern with memory Bilateral knee pain 1187 423375 6168482 M25.561 M25.562 Pt refuses Ortho referral or steroids [id number] Carmen Rick APRN [facility] [address] [place] [address] 07/15/2021 14:34:11 07/15/2021 16:00:16 Obesity 036898046 E66.9 Pt educated on importance of lifestyle modificati on which should include but not limited to an exercise regime and diet modificati on as discussed on visit. Diet education 01119071 Z71.3 Urinary symptoms 3150667 08 R39.9 burning with urgency.Hx prostatect omyUrology referral [id number] Completed course of abx after (+) UA.UA recheck today 01/20/21 UA with trace LE's. No blood. Referral approved to see Dr. Vazquez- pt to schedule appt. 04/10/21 Prostate f/u, pt reports he has frequency and blood coming from his rectum.-He needs GI/PCP for his constipati on and blood per rectum.Potrero el regimen discussed as it can also be worsen his LUTS.Sampl e of myrbetriq given for his LUTSF/U: in 4 weeksPt reports improvemen t of LUTS Type 2 dom betes mellitus 58532669 E11.9 Reports glucose under controlPer medical records [...] 07/15/21 Pt reports home glucose good Dyslipidemia 444750647 E 78.5 Lipitor 20mg at HS01/20/21 Tot chol. 143, Trig 153, LDL 76Cont with Lipitor 20mg at HS Essential hypertension 30481142 I10 BP 126/76 Follow Low salt diet.On Lisinopril 40mg po daily , was on Amlodipine 10mg po daily?Dorothea y ASA 81mg 01/20/21 Cont with current med regimenBP qusuqh04/2 11/05 stop amlodipine 10mg po daily ? pedal edema x 1 weekand Follow low salt diet Has been taking amlodipine 10mg, 1/2 tablet daily- less pedal edema . BP 124/81 Gastroesop hageal reflux disease without esophagitis 765175061 K21.9 STable Tobacco de pendence in remission 555173325 F17.201 Primary ma lignant neoplasm of prostate 80093671 C61 Dx in 1992, s/p prostatect jose luis in [place] [address]. Urologist Dr Jayna maldonado , last seen Apr 2020. Hx hypogonadi sm, neurogenic bladder and recurrent UTI.Last PSA 0.11 05/01/1909 / Urology appt completed for LUTS Neurogenic urinary bladder 378450979 N31.9 Last seen by urol 05/06. Impramine 10mg po BID and Oxybutnin 5mg at HS Pain of le ft shoulder joint 5448850271 7319195 M25.512 mild joint arthritis per imaging 09/2017He declined PT previously . Hemoglobin below reference range 703065471 D64.9 Hgb 11.4, HCT 34.9. Normal MCV and MCH. Hx anemia of chronic diseasePt case entered for Fe Panel, Ferritin , & FIT Chronic constipation 236 223967 K59.09 No improvemen t with Colace Hematochezia 722454248 K 92.1 CBC 01/12/21 with Hgb 11.4, Hct 34.9Pt reporting rectal bleeding to urologistG I referral provided to pt in person 07/15/21 Pt has not made appt with GI - referral provided to pt in person Memory impairment 435684 006 R41.3 MMSE 24Dtr reported concern with memory Bilateral knee pain 1187 115826 8846693 M25.561 M25.562 Pt refuses Ortho referral or steroids Vaccine de clined by patient 2585926224 02 Z28.20 Pt declines shingles, Tdap vaccine Advance di rective discussed with patient 615654953 Z71.89 PT reports he has living will [facility] risk for falls 690814050 Z91.81 Secondary immune deficiency disorder 58592523 D84.9 T2DM Health Concerns Section Related Observation LastModified by Organization Detai ls LastModified Time None Recorded Concern Status LastModified by Organization Details LastModified Time None Recorded Advance Directives Directive None Recorded Payers Insurance Date Sequence Insurance Name Policy Number Policy [place] Covered Member ID [place] Member ID Guarantor Name 08/21/2021 3 [place] Toni Cardenas [id number] Toni Cardenas Meehan 08/27/2022 [facility] PRIOR TO 2022 - DUAL ELIGIBLE (MEDICARE REPLACEMENT/AD VANTAGE - HMO) Toni Cardenas Meehan [id number] Toni Cardenas Meehan 05/14/2021 1 [place] Toni Cardenas [id number] Toni Cardenas Meehan 08/21/2021 [place] [facility] Toni Cardenas [id number] Toni Cardenas Meehan 04/10/2021 1 [facility] [employer] - DOS PRIOR TO 2022 - DUAL ELIGIBLE (MEDICARE REPLACEMENT/AD VANTAGE - HMO) Toni Cardenas Meehan [id number] Toni Cardenas Meehan 01/05/2021 1 *SELF PAY* Rubén Cardenas Meehan 08/27/2022 1 [facility] (MEDICAID REPLACEMENT - HMO) Toni Cardenas [id number] Toni Cardenas Meehan 01/26/2021 1 [place] Toni Cardenas [id number] Toni Cardenas Meehan Notes Date Note Type Note Provider Name and Address Organization Details Recorded Time 01/05/2021 text/html ROS as noted in the [facility] 85-year-old male New patient. Patient is here to establish care. Patient reports recent relocation from [place]. He is accompanied by his daughter lela [...] colonoscopy:Annual: Eye Exam: Carmen Rick APRN [address], [address] 01/05/2021 15:27:02 01/12/2021 text/html ROS as noted in the [facility] 85-year-old male New patient. Patient is here to establish care. Patient reports recent relocation from [place]. He is accompanied by his daughter lela [...] retinopathy Carmen Rick APRN [address] [place], [address], [facility], [facility]. 01/12/2021 13:20:14 01/20/2021 text/html ROS as noted in the [facility] 85-year-old male New patient. Patient is here to establish care. Patient reports recent relocation from [place]. He is accompanied by his daughter lela [...] retinopathy Carmen Rick APRN [address] [place], [address], [facility] 01/20/2021 14:35:26 04/10/2021 text/html ROS as noted in the [facility] 85-year-old male New patient. Patient is here to establish care. Patient reports recent relocation from [place]. He is accompanied by his daughter lela [...] Exam: 03/25/20 - no retinopathy Carmen Rick, METEOROLOGICAL OBSERVER [address] [place], [address], [facility] - [facility]. 04/13/2021 08:48:16 07/15/2021 text/html ROS as noted in the [facility] 85-year-old male New patient. Patient is here to establish care. Patient reports recent relocation from [place]. He is accompanied by his daughter lela [...] shares that he may be returning to [facility]. colonoscopy: GI referral initiatedAnnual:Eye Exam: 03/25/20 - no retinopathy Carmen Rick APRN [address] [place], [address], [facility] - [facility]. 07/16/2021 07:57:05
--- OUTSIDE RECORDS SUMMARY | 2025-06-27 23:46 | XMS_ITS | Encounter Summary ---
Author Organization [employer] Address [address] [place] [address] Care Team Providers Care Switch House Operator Name Role Phone Jolly London MD Primary Care Provider [phone] Javier Benton PharmD Unavailable [phone] Reason for Referral * Consultation (Routine) - Closed Specialty Diagnoses / Procedures Referred By Contac t Referred To Contact Audiology Diagnoses Sensorineural hearing loss, bilateral Jolly London MD [address] [place] [address] Phone: tel: fax: [facility] Audiology [address] Floor [place], [place] Phone: tel: fax: Referral ID Status Reason Start Date Expiration Date V isits Requested Visits Authorized [id number] Closed Specialty Services Required 10/10/2024 10/10/2025 1 1 Encounter Details Date Type Department Care Team (Late st Contact Info) Description 10/10/2024 Orders Only [facility] [address] [place], [place] [phone] Jolly London MD [address], [place] [phone] Sensorineural hearing loss, bilateral (Primary Dx) Social [...] Description 07/09/2025 3:30 PM EST Office Visit [facility] [address] [place] [phone] Jolly London MD [address] [place] [address] 09/09/2025 1:00 PM EST Medication Management [facility] [address] [place] [phone] Javier Benton, PharmD [address] [place] [address] Scheduled Referrals Name Type Priority Associated Diagnoses [...] documented as of this encounter Care Teams Switch House Operator Relationship Specialty Start Date End Date Jolly London MD [address] [place] [address] PCP - General Family Medicine 06/29/12 Javier Benton, PharmD [address] [place] [phone] Pharmacist Internal Medicine 01/14/23 [facility] 04/21/25 documented as of this encounter
--- OUTSIDE RECORDS SUMMARY | 2025-06-27 23:47 | XMS_ITS | Clinical Summary ---
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 90 tablet 3 10/11/19 25 026 Active Ascorbic Acid (vitamin C) 500 MG tablet TAKE 1 TABLET BY MOUTH AT BEDTIME 90 tablet 3 12/20/19 25 Active Aspirin Low Dose 81 MG EC tablet TAKE 1 TABLET BY MOUTH EVERY MORNING 90 tablet 3 12/26/19 25 Active lidocaine (Lidoderm) 5 % patchIndication [...] tablets per day. 90 tablet 1 5 1:48 PM EST 03/04/20 25 Active FREESTYLE LITE test stripIndication s:Type 2 diabetes mellitus with hyperglycemia, without long-term current use of insulin (HCC) USE DIRECTED TO TEST BLOOD SUGAR THREE TIMES DAILY 100 strip 5 5 12:57 PM EST 04/22/20 25 Active atorvastatin (Lipitor) 40 MG tabletIndicatio ns:Dyslipidemia Take 1 tablet (40 mg) by mouth at bedtime. 90 tablet 3 5 1:48 PM EST 04/29/20 25 Active SITagliptin-met FORMIN (Janumet) 50-1000 MG tablet Take 1 tablet by mouth with breakfast and with evening meal. 60 tablet 11 5 1:48 PM EST 05/28/20 25 026 Active magnesium oxide (Mag-Ox) 400 MG tablet Take 1 tablet (400 mg) by mouth Once per day. 90 tablet 5 1:48 PM EST 06/20/20 25 Active Ferrous Sulfate (iron) 325 (65 Fe) MG tablet Take 1 tablet (325 mg) by mouth 2 times daily. 180 tablet 5 1:48 PM EST 06/20/20 25 Active Ferrous Sulfate (iron) 325 (65 Fe) MG tablet TAKE 1 TABLET BY MOUTH TWICE DAILY IN THE MORNING AND AT BEDTIME 180 tablet 02/21/20 25 025 Discontinued(Re order (will not trigger notification to Pharmacy)) magnesium oxide (Mag-Ox) 400 MG tablet TAKE 1 TABLET BY MOUTH EVERYDAY AT NOON 90 tablet 02/21/20 25 025 Discontinued(Re order [...] he prefers it to be delivered to [facility]. 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 However, he is high-risk for CVA / TIA - continue ASA - continue optimizing chronic disease management - continue working on lifestyle modificaitons Assessment & Plan (11/19/2024 4:11 PM EDT): - Seen in [facility] ED on 09/17/24, questionable - patient claims that he did not have vision problem. However, he is high-risk for CVA / TIA - continue ASA - continue optimizing chronic disease management - continue working on lifestyle modificaitons Assessment & Plan (09/28/2024 9:47 AM EDT): - Seen in [facility] ED on 09/17/24, questionable - patient claims [...] anemia. Elevated ferritin level. - Seen by hand crown pouncer in July 2023 - monitor - Continue current iron supplementation Assessment & Plan (11/19/2024 4:09 PM EDT): - Normocytic anemia. Elevated ferritin level. - Seen by hand crown pouncer in July 2023 - monitor - Continue current iron supplementation Assessment & Plan (08/13/2024 3:53 PM EST): - Normocytic anemia. Elevated ferritin level. - Seen by hand crown pouncer in July 2023 - monitor - Continue current iron supplementation Assessment & Plan (04/26/2024 10:33 AM EDT): - Normocytic anemia. Elevated ferritin level. - Seen by hand crown pouncer in July 2023 - monitor - Continue current iron supplementation Assessment & Plan (03/07/2024 3:45 PM EDT): - Normocytic anemia. Elevated ferritin level. - Seen by hand crown pouncer in July 2023 - monitor - Continue current iron supplementation Assessment & Plan (01/25/2024 5:10 PM EDT): - Normocytic anemia. Elevated ferritin level. - Seen by hand crown pouncer in July 2023 - monitor - Continue current iron supplementation Assessment & Plan (10/18/2023 1:00 PM EDT): - Normocytic anemia. Elevated ferritin level. - Seen by hand crown pouncer in July 2023 - monitor - Continue current iron supplementation Assessment & Plan (06/22/2023 5:49 AM EST): - Normocytic anemia. Elevated ferritin. - Seen by hand crown pouncer on 05/13/23 - monitor - Continue current [...] eat healthier foods. Will refer him to [facility] department. Will write a letter to the [...] eat healthier foods. Will refer him to [facility] department. Will write a letter to the [...] (05/28/2025 10:25 AM EST): - Following with [facility], last seen in November 2024 -Discontinued Imipramine. -Continue mirabegron -Recently given a sample of Gemtesa -Treatment Hx: Previously on oxybutynin 5 mg which was changed to mirabegron when he went to [place] and was seen by an urologist there. Previously on imipramine, which was recommended to discontinue due to anticholinergic effect. Assessment & Plan (03/04/2025 8:38 AM EDT): - Following with UrologistPioneer Juvey, last seen in November 2024 -Discontinued Imipramine. -Continue mirabegron -Recently given a sample of Gemtesa -Treatment Hx: Previously on oxybutynin 5 mg which was changed to mirabegron when he went to [place] and was seen by an urologist there. Previously on imipramine, which was recommended to discontinue due to anticholinergic effect. Assessment & Plan (11/19/2024 4:11 PM EDT): - Following with UrologistPioneer Juve, last seen in Apr 2024 -Discontinued Imipramine. -Continue mirabegron -Recently given a sample of Gemtesa -Treatment Hx: Previously on oxybutynin 5 mg which was changed to mirabegron when he went to [place] and was seen by an urologist there. Previously on imipramine, which was recommended to discontinue due to anticholinergic effect. Assessment & Plan (08/13/2024 3:52 PM EST): - Following with UrologistPioneer Juve, last seen in Apr 2024 -Discontinued Imipramine. -Continue mirabegron -Recently given a sample of Gemtesa -Treatment Hx: Previously on oxybutynin 5 mg which was changed to mirabegron when he went to [place] and was seen by an urologist there. Previously on imipramine, which was recommended to discontinue due to anticholinergic effect. Assessment & Plan (04/29/2024 6:49 AM EDT): - Following with UrologistPioneer Juve, last seen in Apr 2024 -Discontinued Imipramine. -Continue mirabegron -Recently given a sample of Gemtesa -Treatment Hx: Previously on oxybutynin 5 mg which was changed to mirabegron when he went to [place] and was seen by an urologist there. Previously on imipramine, which was recommended to discontinue due to anticholinergic effect. Assessment & Plan (01/25/2024 5:07 PM EDT): - Following with UrologistPioneer Juve, last seen in November 2023 -Discontinued Imipramine. -Continue mirabegron -Treatment Hx: Previously on oxybutynin 5 mg which was changed to mirabegron when he went to [place] and was seen by an urologist there. Previously on imipramine, which was recommended to discontinue due to anticholinergic effect. Assessment & Plan (10/18/2023 1:22 PM EDT): - Following with UrologistPioneer Juve, last seen in July 2023 -Discontinue Imipramine. -Continue mirabegron -Treatment Hx: Previously on oxybutynin 5 mg which was changed to mirabegron when he went to [place] and was seen by an urologist there. Previously on imipramine, which was recommended to discontinue due to anticholinergic effect. Assessment & Plan (06/22/2023 5:42 AM EST): - Following with UrologistPioneer Juve, last seen on 02/11/2023 -Continue Imipramine. -Continue mirabegron -Treatment Hx: Previously on oxybutynin 5 mg which was changed to mirabegron when he went to [place] and was seen by an urologist there. Assessment & Plan (02/21/2023 5:12 AM EDT): - Following with UrologPioneer Juve mobley, last seen on 02/11/2023 -Continue Imipramine. -Continue myrbetriq. -Treatment Hx: Previously on oxybutynin 5 mg which was changed to Mybetriq when he went to [place] and was seen by an urologist there. Assessment & Plan (11/09/2022 5:06 PM EDT): Following with Urologist, last seen on 10/2022, requested mote of the visit and it is pending at this time -Continue Imipramine. -Continue myrbetriq. -Treatment Hx: Previously on oxybutynin 5 mg which was changed to Mybetriq when he went to [place] and was seen by an urologist. Assessment & Plan (07/04/2022 5:07 AM EST): -Continue Imipramine. -Continue myrbetriq. -Treatment Hx: Previously on oxybutynin 5 mg which was changed to Mybetriq when he went to [place] and was seen by an urologist. Hypertension [...] 02/16/24, interrupted due to UTI Prostate cancer ([facility]) 11/13/2012 Assessment & Plan (05/28/2025 10:25 AM EST): Dx in 1992. [place]p [place] in 1992 in [place] Urologist: [facility], last seen in November 2024 Hx [...] in 1992. s/p [place] 1992 [place] Urologist: [facility], last seen in [...] in 1992. s/p [place] 1992 [place] Urologist: [facility], last seen in Apr 2024 Hx [...] in 1992. s/p [place] Urologist: [facility], last seen in Apr 2024 Hx [...] in 1992. [place] Urologist: [facility], last seen in Apr 2024 Hx [...] in 1992. [place] 1992 [place] Urologist: [facility], last seen in Apr 2024 Hx [...] in 1992. [place] [facility] in [facility]23 [...] in 1992. [place] Urologist: [facility] urology, last seen in November 2023 Hx [...] in 1992. s/p [place] 1992 [place] Urologist: Dr. Brush, last seen in Apr [...] in 1992. s/p [place] 1992 [place] Urologist: Dr. Brush, last seen in 10/2022, [...] in 1992. s/p [place] 1992 [place] Urologist: [facility], last seen in January 2023 Hx hypogonadism, neurogenic bladder, and recurrent UTI last UTI in 10/2022 last PSA 0.7 in 10/2022, increased from previous PSA Abd/pelvis CT recently showed no sign of recurrence per specialist Continue current treatment plan. Assessment & Plan (10/18/2023 1:23 PM EDT): Dx in 1992. [place] 1992 [place] [facility]rologist: [facility], last seen in [...] EDT): >>ASSESSMENT AND PLAN FOR PROSTATE CANCER ([facility]) WRITTEN ON 06/22/2023 12:44 PM BY JOLLY CONSTANTINO MD Dx in 1992. [place] 1992 [place] Urologist: [facility], last seen in [...] appt with urologist and radiation oncologist Called [facility] and requested an assistance in rescheduling Bone Scan appt and giving instruction in Luxem[place]ish. The central office equipment installer has kindly agreed to do so. >>ASSESSMENT AND PLAN FOR HISTORY OF PROSTATE CANCER WRITTEN ON 06/22/2023 12:44 PM BY JOLLY CONSTANTINO MD Dx in 1992. s[place] 1992 [place] Urologist: [facility], last seen in [...] appt with urologist and radiation oncologist Called [facility] and requested an assistance in rescheduling Bone Scan appt and giving instruction in [place]ish. The central office equipment installer has kindly agreed to do so. Resolved [...] delivery service. Patient tried once, but preferred [place] foods to typical [place] foods. Patient is willing to try again. - currently going to [employer] for lunch as a part of service from [facility]. 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 Gastroesophageal reflux disease 01/07/2016 07/04/2022 Helicobacter pylori gastroin testinal tract infection 01/07/2016 01/25/2024 Encounters Date Type Department Care Team Description 06/24/2025 Travel 06/21/2025 Results Follow-Up [address] [address] Jolly Constantino MD Scrotum 06/20/2025 Refill [facility] [place] [address] Jolly Constantino MD 06/10/[address] [address] Jolly Constantino MD Durable Medical Equipment (Compression stockings) 05/30/2025 Telephone [facility] [place] [address] Jolly Constantino MD FYI 05/28/[address] [address] Jolly Constantino MD Durable Medical Equipment (DME: Compression Stockings); Call Back Request 05/28/2025 Orders Only [facility] [place] [address] Jolly Constantino MD Primary hypertension (Primary Dx) 05/28/[address] [address] Jolly Constantino MD Medication Question 05/28/[address] [address] Jolly Constantino MD Durable Medical Equipment (DME: Compression Stocking ) 05/27/2025 9:00 AM EST Office Visit [facility] [place] [address] Jolly Constantino MD Primary hypertension (Primary Dx); At risk for falls; Dyslipidemia; Prostate cancer ([facility]/HCC) (HCC); Type 2 diabetes mellitus with hyperglycemia, without long-term current use of insulin ([facility]); Dependent edema; Dizziness; Tinnitus of both ears; Neurogenic bladder; Recurrent UTI; Anemia of chronic disease; Encounter for immunization; Scrotal swelling; Bilateral lower extremity edema 05/27/2025 Travel 05/24/[address] [address] Jolly Constantino MD chartprep 05/17/[address] [address] Jolly Constantino MD Order 05/13/2025 Orders Only GENERIC EXTERNAL DATA DEPARTMENT Provider, Generic External Data 05/09/[address] [address] Jolly Constnatino MD Durable Medical Equipment 05/08/[address] [address] Nata Hogan, ANY 05/08/[address] [address] Nata Hogan, ANY 05/06/2025 5:20 PM EDT Office Visit [facility] [address] [place] [address] Tarah Faust FNP Dependent edema (Primary Dx) 05/06/2025 Travel 05/06/[address] [address] Jolly Constantino MD Durable Medical Equipment (DME Request: Shower chair/Raised Toilet Seat) 05/06/[address] [address] Jolly Constantino MD Appointment Request 04/30/[address] [address] Jolly Constantino MD verbal orders 04/29/[address] [address] Jolly Constantino MD No Show 04/26/[address] [address] Jolly Constantino MD chartprep 04/25/[address] [address] Kourtney Olguin, [facility] Follow-up 04/23/[address] [address] Kourtney Olguin, PharmD 04/20/[address] [place] [address] Rebecca Hamm, DESEAN Type 2 diabetes mellitus with hyperglycemia, without long-term current use of insulin (HCC) 04/17/2025 Patient Outreach [address] [address] Jolly Constantino MD Transition Of Care (Tcm) (HDF-scheduled) 04/10/2025 Patient Outreach [address] [address] Jolly Constantino MD Pre-visit Planning (HDF unscheduled unable to LVM ) 04/10/[address] [address] Jolly Constantino MD [facility] Follow-up 04/04/2025 Orders Only GENERIC EXTERNAL DATA DEPARTMENT Provider, Generic External Data 04/03/[address] [address] Kourtney Olguin, PharmD 04/03/2025 Orders Only GENERIC EXTERNAL DATA DEPARTMENT Provider, Generic External Data 04/03/[address] [address] Jolly Constantino MD chart prep 03/28/2025 Patient Outreach [address] [address] Jolly Constantino MD Transition Of Care (Tcm) (HDF cheduled ) 03/28/[address] [address] Jolly Constantino MD Hospital Follow-up from Last 3 Months Immunizations Immunization Administration [...] Sign Reading Time Taken Comments Blood Pressure 128/60 06/24/2025 1:08 PM EST Pulse 88 06/24/2025 1:08 PM EST Temperature 35.7 C (96.2 F) 05/27/2025 [...] EST Office Visit [facility] [address] [place] [address] Jolly Constantino MD [address] [place] [address] 09/09/2025 1:00 PM EST Medication Management [facility] [address] [place], [place] [phone] Javier Benton, PharmD [address] [place], [place] [phone] Health Maintenance Due Date Last Done Comments [...] blood pressure task No Lizbeth Morgan RN Patient has chronic [...] Plan Patient has chronic kidney disease No Yadiel Parviz Patient has chronic kidney disease Care Plan Patient has chronic kidney disease No Parviz Cotto Weekly blood pressure task Care Plan Weekly blood pressure task No Luther June Weekly blood pressure task Care Plan Weekly blood pressure task No Sloan June Patient has chronic kidney disease Care Plan Patient has chronic kidney disease No Sloan June Patient has chronic kidney disease Care Plan Patient has chronic kidney disease No Duglas Sloana Weekly blood pressure task Care Plan Weekly blood pressure task No Javier Benton PharmD Weekly blood pressure task Care Plan Weekly blood pressure task No Javier Benton PharmD Patient has chronic kidney disease Care Plan Patient has chronic kidney disease No Javier Benton PharmD Patient has chronic kidney disease Care Plan Patient has chronic kidney disease No Javier Benton PharmD Weekly blood pressure task Care Plan Weekly blood pressure task No Elsy Sam PharmD Weekly blood pressure task Care Plan Weekly blood pressure task No Elsy Sam PharmD Patient has chronic kidney disease Care Plan Patient has chronic kidney disease No Elsy Sam PharmD Patient has chronic kidney disease Care Plan Patient has chronic kidney disease No Elsy Sam PharmD Weekly blood pressure task Care Plan Weekly blood pressure task No Jolly Constantino MD Weekly blood pressure task Care Plan Weekly blood pressure task No Jolly Constantino MD Patient has chronic kidney disease Care Plan Patient has chronic kidney disease No Jolly Constantino MD Patient has chronic kidney disease Care Plan Patient has chronic kidney disease No Jolly Constantino MD Weekly blood pressure task Care Plan [...] current use of insulin (HCC) Scrotal swelling VAS US LOWER EXTREMITY VENOUS INSUFFICIENCY BILATERAL Urgent 06/19/2025 1:22 PM EST Bilateral lower extremity edema POCT GLYCOSYLATED HEMOGLOBIN (HGB A1C) Routine 05/27/2025 9:09 AM EST Type 2 diabetes mellitus with hyperglycemia, without long-term current use of insulin (HCC) POCT GLUCOSE Routine 05/27/2025 9:08 AM EST Type 2 diabetes mellitus with hyperglycemia, without long-term current use of insulin ([facility]) GLUCOSE, WHOLE BLOOD Routine 05/13/2025 8:09 PM [...] QL NAAT Routine 04/03/2025 11:59 AM EDT ALBUMIN, RANDOM URINE W/CREATININE Routine 02/27/2025 2:39 PM EDT Type 2 diabetes mellitus with hyperglycemia, without long-term current use of insulin ([facility]) LIPID PANEL, STANDARD Routine 09/17/2024 1:26 [...] PM EST Narrative 06/19/2025 2:41 PM EST [place] [address] Ultrasound Report Signed Patient: Toni Keys MR#: [id number] : 1935 Acct:[id number] Age/Sex: 89 / M ADM Date: 06/19/25 Loc: . Attending Dr: Jolly Constantino MD Ordering Physician: Jolly Constantino MD Date of Service: 06/19/25 Procedure(s): US scrotum Accession Number(s): [id number] cc: Jolly Constantino MD Reason for Exam: [...] by: Simón Aden MD 06/19/2025 02:38 PM [facility] Dictated By: Simón Aden MD Signed By: <Electronically signed by Simón Aden MD in OV> 06/19/25 1438 DD/ 1400 TD/TT: 06/19/25 1415 Compensation Manager: Procedure Note Donotuseinterpreter, Image - 06/19/[address] [address] Ultrasound Report Signed Patient: Toni Keys MR#: [id number] : 1936Acct:[id number] Age/Sex: 89 / MADM Date: 06/19/25 Loc: HO.US Attending Dr: Jolly Constantino MD Ordering Physician: Jolly Constantino MD Date of Service: 06/19/25 Procedure(s): US scrotum Accession Number(s): [id number] cc: Jolly Constantino MD Reason for Exam: [...] 06/19/25 1438 DD/ 1400 TD/TT: 06/19/25 1415 Compensation Manager: Jolly Constantino MD IMG US PROCEDURES Final Result * Vascular US lower extremity venous insufficiency bilateral (06/19/2025 1:22 PM EST) 06/19/2025 1:22 PM [facility] - 06/19/2025 2:[address] [address] Ultrasound Report Signed Patient: Toni Keys MR#: [id number] : 1935 Acct:[id number] Age/Sex: 89 / M ADM Date: 06/19/25 Loc: .US Attending Dr: Jolly Constantino MD Ordering Physician: Jolly Constantino MD Date of Service: 06/19/25 Procedure(s): US venous insuf bilat Accession Number(s): [id number] cc: Jolly Constantino MD Reason for Exam: [...] by: Alin Hurt MD 06/19/2025 02:00 PM [facility] Dictated By: Alin Ko MD Signed By: <Electronically signed by Alin Corrales MD in OV> 06/19/25 1400 DD/ 1322 TD/TT: 06/19/25 1350 Compensation Manager: Procedure Note Donotuseinterpreter, Image - 06/19/2025 [place] [address] Ultrasound Report Signed Patient: Toni Keys MR#: [id number] : 8Acct:[id number] Age/Sex: 89 / MADM Date: 06/19/25 Loc: HO.US Attending Dr: Jolly Constantino MD Ordering Physician: Jolly Constantino MD Date of Service: 06/19/25 Procedure(s): US venous insuf bilat Accession Number(s): [id number] cc: Jolly Constantino MD Reason for Exam: [...] by: Alin Hurt MD 06/19/2025 02:00 PM [facility] Dictated By: Alin Ko MD Signed By: <Electronically signed by Alin Corrales MDin OV> 06/19/25 1400 DD/ 1322 TD/TT: 06/19/25 1350 Compensation Manager: Jolly Constantino MD CV VASCULAR PROCEDURES Final Res ult [facility] [address] [place] [address] * (ABNORMAL) POCT glycosylated hemoglobin (Hgb A1c) (05/27/2025 9:09 AM EST) Hemoglobin A1C 7.7(A) 4.0 - 5.7 % QC Media Lot # [id number] Lot# Expiration Date 3, Blood Capillary blood specimen / Unknown 05/27/2025 9:09 AM EST Jolly Constantino MD POINT OF CARE TEST ENTER/EDIT OR DERABLES Final Result * (ABNORMAL) POCT glucose manually resulted (05/27/2025 9:08 AM EST) Glucose Blood, POC 214(A) 60 - 200 mg/dL QC Media Lot # [id number] Lot# Expiration Date 3,026 Blood Capillary blood specimen / Unknown 05/27/2025 9:08 AM EST Jolly Constantino MD POINT OF CARE TEST ENTER/EDIT OR DERABLES Final Result * (ABNORMAL) Glucose, Whole Blood (05/13/2025 8:09 PM EDT) Only the most recent of4 resultswithin the time period is included. Glucose, Whole Blood 130(H) 60 - 115 mg/dL [facility] Comment:METER #: [id number] 05/13/2025 8:09 PM EDT 05/13/2025 8:12 PM EDT Generic External Data Provider LAB BLOOD ORDERAB LES Final Result [facility] [address] [place] [address] [phone] * VASC US Lower Extremity Venous Duplex Bilateral (05/13/2025 7:49 PM EDT) 05/13/2025 7:49 PM EDT Narrative [facility] - 05/13/2025 7:51 PM EDT [address] [address] Ultrasound Report Signed Patient: Toni Keys MR#: [id number] : 1935 Acct:[id number] Age/Sex: 89 / M ADM Date: 05/13/25 Loc: .ED Attending Dr: Ordering Physician: Uzair Hines DO Date of Service: 05/13/25 Procedure(s): US venous duplex LE BI Accession Number(s): [id number] cc: Jolly Constantino MD; Uzair Hines DO [...] signed by Hima Jordan MD in OV> 05/13/251949 DD/ 48 TD/TT: 05/13/251948 Compensation Manager: Procedure Note Donotuseinterpreter, Image - 05/13/[address] [address] Ultrasound Report Signed Patient: Toni Keys MR#: [id number] : 1935cct:[id number] Age/Sex: 89 / MADM Date: 05/13/25 Loc: .ED Attending Dr: Ordering Physician: Uzair Hines DO Date of Service: 05/13/25 Procedure(s): US venous duplex LE BI Accession Number(s): [id number] cc: Jolly Constantino MD; Uzair Hines DO [...] signed by Hima Jordan MD in OV> 05/13/251949 DD/ 48 TD/TT: 05/13/251948 Compensation Manager: [facility] External Provider CV VASC ULAR PROCEDURES Final Result Performing Organization Address City/State/[facility] Co de Phone Number [facility] [address] [place] [phone] * XR Chest 2 Views (05/13/2025 7:35 PM EDT) Anatomical Region Laterality Modality Chest Radiographic Edilia ging 05/13/2025 7:35 PM EDT Narrative 05/13/2025 7:37 PM EDT [address] [address] XRay Report Signed Patient: Toni Keys MR#: [id number] : 1935 Acct:[id number] Age/Sex: 89 / M ADM Date: 05/13/25 Loc: .ED Attending Dr: Ordering Physician: Uzair Hines DO Date of Service: 05/13/25 Procedure(s): XR chest 2V Accession Number(s): [id number] cc: Jolly Constantino MD; Uzair Hines DO [...] in OV> 05/13/251935 DD/ 34 TD/TT: 05/13/251934 Compensation Manager: Procedure Note Donotuseinterpreter, Image - 05/13/[address] [address] XRay Report Signed Patient: Toni Keys MR#: [id number] : 1935cct:[id number] Age/Sex: 89 / MADM Date: 05/13/25 Loc: .ED Attending Dr: Ordering Physician: Uzair Hines DO Date of Service: 05/13/25 Procedure(s): XR chest 2V Accession Number(s): [id number] cc: Jolly Constantino MD; Uzair Hines DO [...] in OV> 05/13/251935 DD/ 34 TD/TT: 05/13/251934 Compensation Manager: [facility] External Provider IMG XR PROCEDURES Final Result * (ABNORMAL) Urinalysis, Complete, with Reflex to Culture (05/13/2025 2:26 PM EDT) Only the most recent of2 resultswithin the time period is included. Color Urine Yellow [facility] Appearance Urine Clear [facility] PH 6.5 5.0 - 9.0 [facility] Glucose Urine UA Negative Negative mg/dL [facility] Urine Blood Negative Negative [facility] Specific [place] - Urine 1.020 1.005 - 1.025 [facility] Urine Protein 30 (1+)(A) Neg-Trace mg/dL [facility] Urine Ketones Trace Negative mg/dL [facility] Nitrite Urine Negative Negative [facility] Leukocyte Esterase Urine Small (1+)(A) Negative [facility] RBC Urine 0-2 0 - 2 /HPF [facility] Urine WBC 6-10(A) 0 - 5 /HPF [facility] Urine Squamous Epithelial Cell 0-2 0 - 2 /HPF [facility] Urine Bacteria None Seen None Seen [facility] Hyaline Casts, Urine 0-2 0 - 2 /LPF [facility] 05/13/2025 2:26 PM EDT 05/13/2025 2:30 PM EDT Narrative [facility] - 05/13/2025 2:44 PM EDT Urine, Clean Catch us Generic External Data Provider LAB URINE ORDERAB LES Final Result [facility] [address] [place] [address] [phone] * NT-proBNP (05/13/2025 2:26 PM EDT) NT-proBNP 88.6 <300 pg/mL [facility] Comment:Reference Range:Age Group (years) NT-proBNP (pg/ml) InterpretationAll <300 Negative: HF unlikelyFor patients presenting to the ED with clinical suspicion ofnew onset or worsening HF, see below:18 to <50 >299.9 to <450.0 Grayzone: [id number] to 75 >299.9 to <900.0 other causes of>75 >299.9 to <1800.0 NT-proBNP to <50 >449.9 Positive: HF [id number] >899.9>75 >1799.9Note: Elevated NT-proBNP levels should be interpreted inthe context of other clinical information. 05/13/2025 2:26 PM EDT 05/13/2025 2:30 PM EDT us Generic External Data Provider LAB BLOOD ORDERAB LES Final Result [facility] [address] [place] [address] [phone] * (ABNORMAL) CBC auto differential (05/13/2025 2:26 PM EDT) White Blood Count 5.2 4.8 - 10.8 X10*3/uL [facility] Red Blood Count 3.59(L) 4.60 - 5.80 X10*6/uL [facility] Hemoglobin 9.7(L) 14.0 - 18.0 g/dl [facility] Hematocrit 30.7(L) 42.0 - 52.0 % [facility] Mean Corpuscular Volume 85.5 80.0 - 98.0 fL [facility] Mean Corpuscular Hemoglobin 27.0 27.0 - 33.0 pg [facility] Mean Corpuscular HGB Conc 31.6 31.0 - 36.0 g/dl [facility] Red Cell Distribution Width 18.0(H) 11.0 - 16.0 % [facility] Platelet Count 312 160 - 400 X10*3/uL [facility] Mean Platelet Volume 9.7 9.4 - 12.4 fL [facility] Neutrophils Percent Auto 79.8(H) 45 - 73 % [facility] Imm Gran Pct Auto 0.4 0.0 - 0.4 % [facility] Lymphocytes Percent Auto 7.8(L) 20 - 40 % [facility] Monocytes Percent Auto 10.3 2 - 11 % [facility] Eosinophils Percent Auto 1.1 0 - 4 % [facility] Basophils Percent Auto 0.6 0 - 2 % [facility] NRBC Pct Auto 0.0 0.0 - 0.2 /100WBC [facility] Neutrophils Absolute Auto 4.2 2.0 - 8.3 x10*3/uL [facility] Imm Gran Abs Auto 0.02 0.00 - 0.03 X10*3/uL [facility] Lymphocytes Absolute Auto 0.4(L) 1.2 - 4.9 X10*3/uL [facility] Monocytes Absolute Auto 0.5 0.1 - 1.2 X10*3/uL [facility] Eosinophils Absolute Auto 0.1 0.0 - 0.4 X10*3/uL [facility] Basophils Absolute Auto 0.0 0.0 - 0.2 X10*3/uL [facility] NRBC Abs Auto 0.000 0.0 - 0.012 X10*3/uL [facility] 05/13/2025 2:26 PM EDT 05/13/2025 2:30 PM EDT Generic External Data Provider LAB BLOOD ORDERAB LES Final Result Performing Organization Address [facility] Co de Phone Number [facility] [address] [place] [phone] * Magnesium (05/13/2025 2:26 PM EDT) Pathologist [facility] Magnesium 1.8 1.6 - 2.6 mg/dL [facility] 05/13/2025 2:26 PM EDT 05/13/2025 2:30 PM EDT Descomplica External Data Provider LAB BLOOD ORDERAB LES Final Result Performing Organization Address [facility] Co de Phone Number [facility] [address] [place] [address] [phone] * (ABNORMAL) Comprehensive Metabolic Panel (05/13/2025 2:26 PM EDT) Pathologist [facility] Sodium 140 135 - 145 mmol/L [facility] Potassium 4.5 3.3 - 5.1 mmol/L [facility] Chloride 108 96 - 108 mmol/L [facility] Carbon Dioxide 26 22 - 29 mmol/L [facility] Anion Gap 11(L) 12 - 20 [facility] Urea Nitrogen (BUN) 16 9 - 16 mg/dL [facility] Creatinine, Serum 0.89 0.5 - 1.4 mg/dL [facility] Creatinine Clr Calc Pharmacy 53.6 [facility] Comment:eGFR (calculated fro m the MDRD study equation) and eCrCl(calculated from the Cockcroft-Gault equation) are based ondifferent parameters and may not yield comparable results.If eCrCl result is absurd, please check patient'sheight/weight. Estimated Glomerular Filt Rate >60 [facility] Comment:Chronic Kidney Disea se: Estimated GFR < 60 mL/min/1.90v1Ssaxia Kidney Disease: Estimated GFR < 15 mL/min/1.73m2 Glucose 262(H) 60 - 115 mg/dL [facility] Calcium 8.9 8.4 - 10.2 mg/dL [facility] Bilirubin, Total 0.5 0.0 - 1.0 mg/dL [facility] Aspartate Amino Transferase 17 5 - 37 U/L [facility] Alanine Aminotransferase 9 0 - 40 U/L [facility] Total Protein 6.3(L) 6.5 - 8.0 g/dL [facility] Albumin Level 3.7 3.5 - 5.0 g/dL [facility] Alkaline Phosphatase 125(H) 39 - 117 U/L [facility] 05/13/2025 2:26 PM EDT 05/13/2025 2:30 PM EDT us Generic External Data Provider LAB BLOOD ORDERAB LES Final Result [facility] [address] [place] [address] [phone] * Culture, Urine, Routine (05/13/2025 12:00 AM EDT) Urine Urine specimen obtained by clean catch procedure / Unknown 05/13/2025 05/13/2025 Comment:UACC Narrative [facility] - 05/15/2025 1:11 PM EDT Streptococcus viridans group Quant 10,000 to 50,000 cfu/mL Susc N/A Susceptibility not routinely performed on this isolate. Specimen Source: Urine clean catch Generic External Data Provider LAB MICROBIOLOGY - GENERAL ORDERABLES Final Result Performing Organization Address [facility]/ZIP Co de Phone Number [facility] [address] [place] [phone] * SARS-CoV-2 RNA, Influenza A/B, and RSV RNA, Ql NAAT (04/03/2025 11:59 AM EDT) Influenza A PCR NEGATIVE Negative [facility] Influenza B PCR NEGATIVE Negative [facility] Resp Syncy Virus RNA Qual PCR NEGATIVE Negative [facility] SARS COV2 PCR NEGATIVE Negative [facility] Comment:All test results mus t [...] use by authorized laboratories.Testing performed on the viblast GeneXpert utilizingreal-time RT-PCR.All SARS CoV2 and positive influenza A/B results arereported to [facility]. 04/03/2025 11:5 9 AM EDT 04/03/2025 12:03 PM EDT Generic External Data Provider LAB MICROBIOLOGY - GENERAL ORDERABLES Final Result Performing Organization Address [facility]/ZIP Co de Phone Number [facility] [address] [place] [phone] * Albumin, Random Urine W/Creatinine (02/27/2025 2:39 PM EDT) Creatinine, Urine 74.26 mg/dL [facility] Microalbumin Urine 7.0 mg/L [facility] Microalbum Creatinine Ratio Ur 9.4 <30 ug/mg cr [facility] Comment:Albumin/Creatinine R atio Reference Ranges: Normal: < 30 ug/mg creatinine Microalbuminuria: 30 - 300 ug/mg creatinineClinical Albuminuria: > 300 ug/mg creatinine Urine 02/27/2025 2:39 PM EDT 02/27/2025 4:36 PM EDT us Jolly Constantino MD LAB URINE ORDERABLES Final Resul t [facility] [address] [place] [phone] * Lipid Panel, Standard (09/17/2024 1:26 PM EST) Triglycerides 120 <150 mg/dL [facility] Comment:Desirable Triglyceri de: less than 150 mg/dLBorderline High Triglyceride 150-199 mg/dLHigh Triglyceride: 200-499 mg/dLVery High Triglyceride: greater than or equal to 5OO mg/dL Cholesterol 113 <200 mg/dL [facility] Comment:Desirable Cholestero l: less than 200 mg/dLBorderline High Cholesterol: 200-239 mg/dLHigh Cholesterol: greater than 239 mg/dL LDL Cholesterol Calculated 47 <100 mg/dL [facility] Comment:Desirable LDL: less than 100 mg/dLNear Optimal/Above Optimal LDL: 110- 129 mg/dLBorderline High LDL: 130-159 mg/dLHigh LDL: 160-189 mg/dLVery High LDL: greater than or equal to 190 mg/dL HDL Cholesterol 42 >40 mg/dL [facility] Comment:Desirable HDL: great er than 40 mg/dL Note: This HDL assay may give artificially low results in patients with liver disease. 09/17/2024 1:26 PM EST 09/17/2024 1:34 PM EST us Generic External Data Provider LAB BLOOD ORDERAB LES Final Result Performing Organization Address City/State/[facility] Co de Phone Number [facility] [address] [place] [phone] * Diabetes Eye Exam (12/08/2023) Eye [...] 06/24/2025 Patient has chronic kidney disease 06/24/2025 Insurance [facility]LY [facility] CUSTODIAL OPTIONS (O D-SNP) [facility] [address] [place] [phone] Advance Directives Documents on File Type Date Recorded Patient Home Organizer Expl anation Advance Directives and Livin g Will 05/27/2025 11:51 AM HCP Form Advance Directives and Livin g Will 05/27/2025 11:50 AM MOLST Form Care Teams Gun Perforator Loader Relationship Specialty Start Date End Date Jolly Constantino MD [address] [place] [address] PCP - General Family Medicine 06/29/12 Javier Benton, AreliD [address] [place] [address] Pharmacist Internal Medicine 01/14/23 [facility] 04/21/25
--- OUTSIDE RECORDS SUMMARY | 2025-06-27 23:47 | XMS_ITS | Encounter Summary ---
Author Organization [employer] Address [address] [facility] 7[address] [place] [address] Care Team Providers Care Welding Machine Setter Name Role Phone Jolly London MD Primary Care Provider [phone] Javier Benton PharmD Unavailable [phone] Encounter Details Date Type Department Care Team (Late st Contact Info) Description 06/07/2022 Abstract [facility] [address] [place] [phone] Jolly London MD [address] [place] [phone] Social History Tobacco Use Types Packs/Day Years [...] Description 07/09/2025 3:30 PM EST Office Visit [facility] [address] [place] [phone] Jolly London MD [address] [place] [phone] 09/09/2025 1:00 PM EST Medication Management [facility] [address] [place] [phone] Javier Benton, PharmD [address] [place] [phone] documented as of this encounter Visit Diagnoses Not on filedocumented in this encounter Care Teams Welding Machine Setter Relationship Specialty Start Date End Date Jolly London MD [address] [place], [place] [phone] PCP - General Family Medicine 06/29/12 Javier Benton PharmD [address] [place] [address] Pharmacist Internal Medicine 01/14/23 [facility] 04/21/25 documented as of this encounter
--- OUTSIDE RECORDS SUMMARY | 2025-06-27 23:47 | XMS_ITS | Encounter Summary ---
Author Organization [employer] Address [address] [facility] [address] [place] [address] Care Team Providers Care Tile Mechanic Name Role Phone Jolly London MD Primary Care Provider [phone] Javier Benton PharmD Unavailable [phone] Reason for Visit * Reason Onset Date Comments Hospital Follow-up 04/10/2025 Encounter Details Date Type Department Care Team ([facility] st Contact Info) Description 04/10/2025 Telephone [facility] [address] [place] [address] Jolly London MD [address] [place], [place] [phone] Hospital Follow-up Social History Tobacco Use Types [...] - 04/10/2025 10:28 AM EDT Tc from [place] with lokesh au requesting a HDF appt. Hospital: [facility] Date of admission: Lokesh Murphy(04/04/2025) Discharge date: 04/11/2025 Diagnosed: Sacrum fracture *Send message to [place] Clinical Care Coordinators Contact pt at [phone] documented in this encounter Plan of Treatment Upcoming Encounters Date Type Department Care Team (Late st Contact Info) Description 07/09/2025 3:30 PM EST Office Visit [facility] [address] [place] [phone] Jolly London MD [address] [place] [phone] 09/09/2025 1:00 PM EST Medication Management [address] [address] Javier Benton, PharmD [address] [place] [phone] documented as of this encounter Goals Goal [...] documented as of this encounter Care Teams Tile Mechanic Relationship Specialty Start Date End Date Jolly London MD [address] [place] [address] PCP - General Family Medicine 06/29/12 Javier Benton, AreliD [address] [place] [address] Pharmacist Internal Medicine 01/14/23 [facility] 04/21/25 documented as of this encounter
[2025-06-28] MEDS: Sulfamethox/Trimeth 800/160 TABLET 1 TAB PO (00:44)
[2025-06-28 01:19] VITALS: BP 136/65; PULSE 87; RESP 18; TEMP 36.4; O2SAT 97
[2025-06-28 01:28] VITALS: BP 136/65; PULSE 87; RESP 18; TEMP 36.4; O2SAT 97
== END 2025-06-28 01:29 | disposition home or self-care (01) ==
PROVIDERS: Physician Assistant Medical; Emergency Provider Emergency Medicine
DX: N30.90 Cystitis, unspecified without hematuria (principal); M54.6 Pain in thoracic spine; M54.50 Low back pain, unspecified; R10.23 Pelvic and perineal pain bilateral; M25.562 Pain in left knee; Z79.899 Other long term (current) drug therapy
CPT/HCPCS: 36415; 72100; 73564; 74176; 80048; 80076; 81001; 83690; 83735; 85025; 87086; 87088; 87186; 96372; 99283; 99284; J1885

== ENCOUNTER → 2025-06-27 13:36 | Outpatient (BNV) | payer OTHER, SELFPAY | PROVIDERS: Visit Provider Radiology Diagnostic Radiology | DX: N23 Unspecified renal colic (principal); K62.89 Other specified diseases of anus and rectum; S22.080A Wedge compression fracture of T11-T12 vertebra, initial encounter for closed fracture | CPT/HCPCS: 72100; 73564; 74176 ==

== ENCOUNTER → 2025-07-09 14:51 | Outpatient (REF) | payer OTHER, SELFPAY ==
--- NOTE | 2025-07-09 14:54 | CA_ITS ---
Transthoracic Echocardiogram Patient (Last, First, Middle): Toni Keys, Gender: Male Date of : 1935 Age: 89 Procedure Date: 07/09/2025 Procedure Type: Transthoracic Echocardiogram Location: OP Height: 160.02 cm Weight: 72.58 kg BSA: 1.76 m2 Heart Rate: bpm BP: 130 / 78 mmHg Expanded Duty Dental Assistant: TO Referring MD: Tarah FORBES Daycare Worker: Hernandez Childress MD Symptoms: R60.9 B/L LOWER EDEMA Study Quality: Fair ECG Rhythm: Sinus Conclusions: - 1. Normal LV ejection fraction of 60 65% with impaired relaxation filling pattern 2. Mild calcific aortic valve changes noted with normal cardiac valvular Dopplers 3. Upper limits of normal ascending aortic size 4. No gross pericardial effusion Findings Left Ventricle Normal left ventricular size, thickness, and systolic function. The visually estimated ejection fraction is between 60-65%. Spectral Doppler is indicative of an impaired relaxation filling pattern. E/E prime ratio is between 8 and 15 consistent with indeterminate filling pressures. Right Ventricle Normal right ventricular cavity size and systolic function. Atria Both atria are normal in size. There is no evidence of interatrial shunt. Aortic Valve There is a doming trileaflet aortic valve. There is mild calcification of the aortic valve. There is no aortic valve stenosis. There is no aortic valve regurgitation. Mitral Valve There is mild anterior and posterior mitral leaflet thickening. There is trace mitral valve regurgitation. There is no mitral valve stenosis. Pulmonic Valve The pulmonic valve is likely normal. Tricuspid Valve Normal tricuspid valve structure. Tricuspid regurgitation envelope is inadequate for calculation of right ventricular systolic pressure. Normal right atrial pressure. There is no evidence of pulmonary hypertension. Great Vessels All visible segments of the aorta are normal in size. The pulmonary artery was not well visualized. Venous The inferior vena cava is normal in size and collapses greater than 50% with inspiration. Pericardium/Pleural There is no evidence of pericardial effusion. Prior Study Comparison No prior study available for comparison. Measurements 2D Linear Measurements IVSd: 0.87 0.6-0.9/0.6-1.0 cm LVIDd: 4.05 3.9-5.3/4.2-5.9 cm LVIDd Index: 2.30 2.4-3.2/2.2-3.1 cm/m2 LVIDs: 2.53 2.0-3.6 cm LVPWd: 0.82 0.7-1.1 cm LA Diam: 2.60 2.7-3.8/3.0-4.0 cm LAIDs Index: 1.48 1.5-2.3 cm/m2 LV Mass: 127.70 67-162/88-224 g LV Mass Index: 72.56 43-95/49-115 g/m2 LVOT Diam: 2.10 3.0+(-)1.3 cm 2D Systolic Function EF 4C: 63.10 >55% EF 2C: 57.50 >55% EF BiP: 60.80 >55% Mitral Valve MV Pk E: 0.68 MV PK A: 1.18 MV Decel Time: 148.00 E/A: 0.60 E'Lateral: 6.85 E'Medial: 4.68 E/E' Med: 14.60 E/E' Lat: 9.90 PHT: 43.00 MVA PHT: 5.12 Decel [place]: 4.61 Aortic Valve AoV Pk Waqas: 1.32 AoV Mn Waqas: 0.88 AoV VTI: 0.22 AoV Pk Grad: 7.00 Aov Mn Grad: 3.00 GWYN Cont.VTI: 3.07 LVOT LVOT Pk Waqas: 1.04 LVOT Mn Waqas: 0.70 LVOT VTI: 0.19 LVOT Pk Grad: 4.00 LVOT Mn Grad: 2.00 LVOT Diam: 2.10 LVOT Area: 3.46 Diastolic Function MV Pk E: 0.68 MV Pk A: 1.18 E/A: 0.60 E'Medial: 4.68 E/E' Med: 14.60 E' Laterial: 6.85 E/E' Lat: 9.90 Right Ventricle TAPSE (mm): 20.70 TVS' Waqas: 11.50 Tricuspid Valve RA Press: 3.00 Great Vessels Aorta Sinus of Valsalva: 3.48 2.0-3.[address] [place]: 3.03 1.7-3.4 cm Ao Asc: 3.50 2.1-3.4 cm Updated in Other Vendor System with Status of Final Hernandez Childress MD electronically signed on 07/10/2025 1:35:51 PM with status of Final
--- OUTSIDE RECORDS SUMMARY | 2025-07-09 16:06 | XMS_ITS | Encounter Summary ---
Author Organization [employer] Address [address] [facility] [address] [place] [address] Care Team Providers Care Sales Project Administrator Name Role Phone Jolly London MD Primary Care Provider [phone] Javier Benton PharmD Unavailable [phone] Reason for Referral * Consultation (Routine) - Closed Specialty Diagnoses / Procedures Referred By Contac t Referred To Contact Otolaryngology Diagnoses Dizziness Sensorineural hearing loss, bilateral Jolly London MD [address] [place] [address] Phone: tel: fax: [facility] [address] Phone: tel: fax: Referral ID Status Reason Start Date Expiration Date V isits Requested Visits Authorized [id number] Closed Specialty Services Required 10/15/2024 10/15/2025 1 1 Encounter Details Date Type Department Care Team (Late st Contact Info) Description 10/10/2024 Orders Only [facility] [address] [place], [place] [phone] Jolly London MD [address] [place], [place] [phone] Dizziness (Primary Dx); Sensorineural hearing loss, bilateral [...] Care Team (Late st Contact Info) Description 09/09/2025 1:00 PM EST Medication Management [facility] [address] [place] [address] Javier Benton, PharmD [address] [place] [address] Pending Results Name Type Priority Associated Diagnoses [...] documented as of this encounter Care Teams Sales Project Administrator Relationship Specialty Start Date End Date Jolly London MD [address] [place] [address] PCP - General Family Medicine 06/29/12 Javier Benton, Marc [address] [place] [address] Pharmacist Internal Medicine 01/14/23 [facility] 04/21/25 documented as of this encounter
--- OUTSIDE RECORDS SUMMARY | 2025-07-09 16:06 | XMS_ITS | Encounter Summary ---
Author Organization [employer] Address [address] [facility] 7t [place] [address] Care Team Providers Care Sports Development Officer Name Role Phone Jolly London MD Primary Care Provider Javier Benton PharmD Unavailable [phone] Encounter Details Date Type Department Care Team ([facility] st Contact Info) Description 03/07/2024 Orders Only [facility] [address] [place], [place] [phone] Jolly London MD [address] [place], [place] [phone] Social History Tobacco Use Types Packs/Day Years [...] Description 09/09/2025 1:00 PM EST Medication Management [facility] [address] [place] [address] Javier Benton, Marc [address] [place] [address] documented as of this encounter Goals Goal Patient Goal Type Associated Problems Recent Progress Patient-Stated? Author Blood Pressure < 140/90 Blood Pressure 128/60( 025 1:08 PM EST) No Javier Benton, PharmDiamond documented as of this encounter Visit Diagnoses Not on filedocumented in this encounter Additional Health Concerns Assessment Noted Time PHQ-9 Depression Total Score: 0 02/15/20 23 1:30 PM EDT documented as of this encounter Care Teams Sports Development Officer Relationship Specialty Start Date End Date Jolly London MD [address] [place] [phone] PCP - General Family Medicine 06/29/12 Javier Benton, AreliD [address] [place] [phone] Pharmacist Internal Medicine 01/14/23 [facility] 04/21/25 documented as of this encounter
--- OUTSIDE RECORDS SUMMARY | 2025-07-09 16:06 | XMS_ITS | Encounter Summary ---
Author Organization [employer] Address 75 [facility] 7t [place] [address] Care Team Providers Care Beef Splitter Name Role Phone Jolly London MD Primary Care Provider [phone] Javier Benton PharmD Unavailable [phone] Encounter Details Date Type Department Care Team ([facility] st Contact Info) Description 05/28/2025 Orders Only [facility] MED[facility]INE [address] [place], [place] [phone] Jolly London MD [address] [place], [place] [phone] Primary hypertension (Primary Dx) Social History Tobacco [...] Description 09/09/2025 1:00 PM EST Medication Management [facility] [address] [place] [phone] Javier Benton PharmD [address] [place] [phone] Scheduled Orders Name Type Priority Associated Diagnoses [...] documented as of this encounter Care Teams Beef Splitter Relationship Specialty Start Date End Date Jolly London MD [address] [place] [phone] PCP - General Family Medicine 06/29/12 Javier Benton, AreliD [address] [place] [address] Pharmacist Internal Medicine 01/14/23 [facility] 04/21/25 documented as of this encounter
--- OUTSIDE RECORDS SUMMARY | 2025-07-09 16:06 | XMS_ITS | Encounter Summary ---
Author Organization [employer] Address [address] [facility] 7t [place] [address] Care Team Providers Care Dexigraph Operator Name Role Phone Jolly London MD Primary Care Provider [phone] Javier Benton PharmD Unavailable [phone] Reason for Visit * Reason Comments Med Refill Encounter Details Date Type Department Care Team ([facility] st Contact Info) Description 11/13/2023 Refill [facility] MED[facility]INE [address] [place], [place] [phone] Jolly London MD [address] [place], [place] [phone] Social History Tobacco Use Types Packs/Day Years [...] t he electric, gas, oil or water [employer] threatened to shut off services in your [...] Description 09/09/2025 1:00 PM EST Medication Management [facility] MED[facility]INE [address] [place] [address] Javier Benton PharmD [address] [place] [address] documented as of this encounter Goals Goal [...] documented as of this encounter Care Teams Dexigraph Operator Relationship Specialty Start Date End Date Jolly London MD [address] [place] [address] PCP - General Family Medicine 06/29/12 Javier Benton, AreliD [address] [place] [phone] Pharmacist Internal Medicine 01/14/23 [facility] 04/21/25 documented as of this encounter
--- OUTSIDE RECORDS SUMMARY | 2025-07-09 16:06 | XMS_ITS | Encounter Summary ---
Author Organization [employer] Address [address] [facility] 7t [place] [address] Care Team Providers Care Manufacturing Intern Name Role Phone Jolly London MD Primary Care Provider [phone] Javier Benton PharmD Unavailable [phone] Reason for Referral * Consultation (Routine) - Canceled Specialty Diagnoses / Procedures Referred By Contac t Referred To Contact Pharmacy Diagnoses Primary hypertension Type 2 diabetes mellitus with hyperglycemia, without long-term current use of insulin ([facility]) Jolly London MD [address] [place] [address] Phone: tel: fax: Referral ID Status Reason Start Date Expiration Date V isits Requested Visits Authorized [id number] Canceled Consult and Treat 05/29/2024 05/29/2025 6 6 Encounter Details Date Type Department Care Team (Late st Contact Info) Description 05/29/2024 Orders Only [facility] MEDICINE [address] [place] [address] [phone] Jolly London MD [address] [place] [address] [phone] Primary hypertension (Primary Dx); Type 2 diabetes mellitus with hyperglycemia, without long-term current use of insulin ([facility]) Social History Tobacco Use Types Packs/Day [...] Description 09/09/2025 1:00 PM EST Medication Management [facility] MEDICINE [address] [place] [address] Javier Benton PharmD [address] [place] [address] Scheduled Referrals Name Type Priority Associated Diagnoses Orde r Schedule Referral to Pharmacy CDTM Outpatient Referral Routine Primary hypertension Type 2 diabetes mellitus with hyperglycemia, without long-term current use of insulin ([facility]) Ordered: 05/29/2024 documented as of this [...] documented as of this encounter Care Teams Manufacturing Intern Relationship Specialty Start Date End Date Jolly London MD [address] [place] [address] PCP - General Family Medicine 06/29/12 Javier Benton, AreliD [address] [place] [address] Pharmacist Internal Medicine 01/14/23 [facility] 04/21/25 documented as of this encounter
--- OUTSIDE RECORDS SUMMARY | 2025-07-09 16:06 | XMS_ITS | Data Portability ---
Author Organization [place] - [facility] Address [address] [place] [address] Assessment Encounter Date Assessment Date Assessment LastModified by Organization Details LastModified Time 01/05/2021 01/05/2021 Pt to provide medical records from Prev PCP at next visit. Consider labs at next f/u [email or web address] Not available 01/05/2021 15:26:09 01/12/2021 01/12/2021 Reviewed records from [place] Date of last visit 10/15/20 Problem list updated. [email or web address] Not available 01/12/2021 13:07:10 01/20/2021 01/20/2021 Reviewed records from [place] Date of last visit 10/15/20 Problem list updated. [email or web address] Not available 01/20/2021 14:07:00 04/10/2021 04/10/2021 Reviewed records from [place] Date of last visit 10/15/20 Problem list updated. [email or web address] Not available 04/13/2021 08:45:42 07/15/2021 07/15/2021 Reviewed records from [place] Date of last visit 10/15/20 Problem list updated. [email or web address] Not available 07/15/2021 15:03:41 Plan of Treatment Reminders Order Date Submit Date Provider Last Modified By Organization Details Last Modified Time Details Appointments None recorded. Lab CBC w/ auto diff 2020 021 [facility], [address] [place], [address], 13:36:40 TIBC (total iron-bindin g capacity), serum 2020 021 [facility], [address] [place], [address], 13:36:42 CMP, serum or plasma 2020 021 [place], [address] [place], [address], 13:36:41 lipid panel, serum 2020 021 [facility], [address] [place], [address], 13:36:42 HbA1c (hemoglobin A1c), blood 2020 021 [facility], [address] [place], [address], 13:36:43 microalbumi n/creatinin e, mass ratio, urine 2020 021 [facility], [address] [place], [address], 13:36:43 urinalysis, dipstick [email or web address] [place] [address] Care, [address], [place], [address], 10:24:06 HbA1c (hemoglobin A1c), blood 2020 [facility]21 [facility], [address] [place], [address], 13:37:08 microalbumi n/creatinin e, mass ratio, urine 2020 021 [facility], [address] [place], [address], 1 13:37:07 CMP, serum or plasma 2020 021 [facility], [address] [place], [address], 1 13:37:05 lipid panel, serum 2020 021 [facility], [address] [place], [address], 1 13:37:06 CBC w/ auto diff 2020 021 [place] [facility], [address] [place], [address], 1 13:37:04 urinalysis, dipstick 2020 021 [email or web address] 81 [facility], [address], [place], [address], 14:27:26 Referral ENT referral - Reports fullness to left ear. Has insect removal 3 weeks ago- with abrasion . Txd with Ciprodex gtts x 1 week 2020 021 [email or web address] 78 [facility], [address], [place], [address], 2 17:31:06 urologist referral - urinary symptoms hx prostate cancer 2020 021 MARIPOSA Vazquez MD ([facility]), [address], [place], [address], 14:14:48 Procedures None recorded. Surgeries None recorded. Imaging None recorded. Medication Orders ferrous sulfate 325 mg (65 mg iron) tablet,abel yed release [address] [facility], [address], [place], [address], 15:19:26 Vitamin C [address] [facility], [address], [place], [address], 15:19:24 cyanocobala min (vit B-12) 1,[address] [facility], [address], [place], [address], 15:19:25 glipizide [address] [facility], [address], [place], [address], 15:19:25 metformin 1,[address] [facility], [address], [place], [address], 15:19:27 pioglitazon e [address] [facility], [address], [place], [address], 15:19:27 FreeStyle Lite Strips [address] [facility], [address], [place], [address], 15:19:25 Alcohol Prep Pads [address] [facility], [address], [place], [address], 15:19:24 atorvastati n [address] [facility], [address], [place], [address], 15:19:25 imipramine [address] [facility], [address], [place], [address], 15:19:24 omeprazole 20 mg capsule,del ayed release [address] [facility] [address], [place], [address], 15:19:26 lisinopril 40 mg tablet [address] [facility], [address], [place], [address], 15:19:27 Adult Low Dose Aspirin 81 mg tablet,abel yed release [address] [facility], [address], [place], [address], 15:19:25 polyethylen e glycol 3350 17 gram/dose oral powder [address] [facility] [address], [place], [address], 13:51:07 FreeStyle Lite Strips [address] [facility] [address], [place], [address], 13:51:07 ketorolac 30 mg/mL (1 mL) injection solution 2020 6 Not available 14:39:40 DOK 100 mg capsule 2020 [facility], [address] [place], [address], 13:40:44 ferrous sulfate 325 mg (65 mg iron) tablet,abel yed release 2020 021 [facility], [address] [place], [address], 14:11:02 Vitamin C 500 mg tablet 2020 021 6 [facility], [address] [place], [address], 13:17:44 FreeStyle Lite Strips 2020 021 [facility], [address] [place], [address], 1 14:11:04 Alcohol Prep Pads 2020 021 [email or web address] 6 [facility], [address] [place], [address], 1 13:13:19 Bactrim DS 800 mg-160 mg tablet [email or web address] [place] [address] Pharmacy, [address] [place], [address], 1 15:18:27 Ciprodex 0.3 %-0.1 % ear drops,suspe nsion 2020 [email or web address] [place] [address] Pharmacy, [address] [place], [address], 1 15:04:45 pioglitazon e 45 mg tablet 2020 021 [email or web address] 6 [facility], [address] [place], [address], 09:55:51 atorvastati n 20 mg tablet 2020 021 [email or web address] 6 [facility], [address] [place], [address], 09:54:24 oxybutynin chloride ER 5 mg tablet,exte nded release 24 hr 2020 021 6 [facility], [address] [place], [address], 1 09:55:30 omeprazole 20 mg capsule,del ayed release 2020 021 6 [facility], [address] [place], [address], 1 09:55:25 lisinopril 40 mg tablet 2020 021 6 [facility], [address] [place], [address], 09:55:15 Patient Targets Encounter Date Encounter Id Patient Goals Patient Target Last Modified By Organization Details Last Modified Time 01/05/2021 [id number] see CM plan Not available 01/05/2021 15:25:05 01/12/2021 [id number] see CM plan [email or web address] Not available 01/12/2021 13:19:11 01/20/2021 [id number] See CM Plan [email or web address] Not available 01/20/2021 14:09:48 04/10/2021 [id number] See CM PLan [email or web address] Not available 04/13/2021 08:46:20 07/15/2021 [id number] See CM Plan [email or web address] Not available 07/16/2021 07:55:52 Patient Instructions Encounter Date Encounter Id Patient Instructions Last Modified By Organization Details Last Modified Time 01/05/2021 [id number] Instructed on medications and follow up. Patient is aware of the clinic hours and walk in policy. Alerted patient of call service and how to use it. [email or web address] Not available 01/05/2021 15:25:11 Allergies reviewed. Treatment [...] of care today. Encounter time: 30 min. Not available 01/05/2021 15:25:25 01/12/2021 [id number] Instructed on medications and follow up. Patient is aware of the clinic hours and walk in policy. Alerted patient of call service and how to use it. [email or web address] Not available 01/12/2021 13:19:18 Allergies reviewed. Treatment [...] of care today. Encounter time: 30 min. Not available 01/12/2021 13:19:43 01/20/2021 [id number] Instructed on medications and follow up. Patient is aware of the clinic hours and walk in policy. Alerted patient of call service and how to use it. [email or web address] Not available 01/20/2021 14:09:53 Allergies reviewed. Treatment [...] of care today. Encounter time: 15 min. [email or web address] Not available 01/20/2021 14:10:14 04/10/2021 [id number] mini mental stat e exam [email or web address] Not available 04/10/2021 13:51:03 Instructed on medications and follow up. Patient is aware of the clinic hours and walk in policy. Alerted patient of call service and how to use it. [email or web address] Not available 04/13/2021 08:46:24 Allergies reviewed. Treatment [...] of care today. Encounter time: 15 min. [email or web address] Not available 04/13/2021 08:46:41 07/15/2021 [id number] eating healthy foods: care instructions [email or web address] Not available 07/15/2021 15:19:11 C MO comer alimentos saludables: instrucciones de cuidado - [eating healthy foods: care instructions] [email or web address] Not available 07/15/2021 15:19:11 fall risk assessment* [email or web address] Not available 10/02/2021 09:13:33 Instructed on medications and follow up. Patient is aware of the clinic hours and walk in policy. Alerted patient of call service and how to use it. Not available 07/16/2021 07:55:57 Allergies reviewed. Treatment [...] of care today. Encounter time: 15 min. [email or web address] Not available 07/16/2021 07:56:15 Reason for Referral Urologist Referral for Urina ry symptoms reports urinary symptoms- hx proatate ca. Needs to est. with urologist - rel[place]acted from [place] urinary symptoms hx prostate cancer Referring Physician: Carmen Rick [facility], Encounter Date: 01/05/2021 ENT Referral for Abrasion of skin of left ear fullness to left ear. Has insect removal 3 weeks ago- with abrasion . Txd with Ciprodex gtts x 1 wee Reports fullness to left ear. Has insect removal 3 weeks ago- with abrasion . Txd with Ciprodex gtts x 1 week Referring Physician: Carmen Rick [facility], Encounter Date: 01/12/2021 Results Created Date Observation Date Name Description Value Unit Range Abnormal Flag Note LastModifiedBy Organization Detail LastModifiedTime 01/06/20 21 01/05/2021 urina lysis , dipst ick leukocytes 2+ none negati ve abnormal Not Available [facility] [address], [place], [address], 01/05/2021 13:53:20 01/06/20 21 01/05/2021 urina lysis , dipst ick nitrite negati ve none negati ve normal Not Available [facility] [address], [place], [address], 01/05/2021 13:53:20 01/06/20 21 01/05/2021 urina lysis , dipst ick urobilinogen 0.2 eu/dL 0.2-1 normal Not Available [facility] [address], [place], [address], 01/05/2021 13:53:20 01/06/20 21 01/05/2021 urina lysis , dipst ick protein 1+ none negati ve abnormal Not Available [facility] [address], [place], [address], 01/05/2021 13:53:20 01/06/20 21 01/05/2021 urina lysis , dipst ick pH 7.0 none 4.6-8 normal Not Available [facility] [address], [place], [address], 01/05/2021 13:53:20 01/06/20 21 01/05/2021 urina lysis , dipst ick blood 1+ none negati ve abnormal Not Available [facility] [address], [place], [address], 01/05/2021 13:53:20 01/06/20 21 01/05/2021 urina lysis , dipst ick specific gravity 1.025 none 1.007- 1.03 normal Not Available [facility] [address], [place], [address], 01/05/2021 13:53:20 01/06/20 21 01/05/2021 urina lysis , dipst ick ketone negati ve none negati ve normal Not Available [facility] [address], [place], [address], 01/05/2021 13:53:20 01/06/20 21 01/05/2021 urina lysis , dipst ick bilirubin negati ve none negati ve normal Not Available [facility] [address], [place], [address], 01/05/2021 13:53:20 01/06/20 21 01/05/2021 urina lysis , dipst ick glucose negati ve none negati ve normal Not Available [facility] [address], [place], [address], 01/05/2021 13:53:20 01/06/20 21 01/05/2021 urina lysis , dipst ick appearance none clear Not Available [facility] [address], [place], [address], 01/05/2021 13:53:20 01/06/20 21 01/05/2021 urina lysis , dipst ick color yellow none colorl ess-am lloyd normal Not Available [facility] [address], [place], [address], 01/05/2021 13:53:20 01/06/20 21 01/05/2021 urina lysis , dipst ick clarity CLEAR clear normal Not Available [facility] [address], [place], [address], 01/05/2021 13:53:20 01/13/20 21 01/13/2021 CBC WITH DIFFE RENTI AL/PL ATELE T WBC 6.1 x10e3 /uL 3.4-10 .8 Not Available [facility] ([facility]) [address] [place], [address], 01/13/2021 13:37:04 01/13/20 21 01/13/2021 CBC WITH DIFFE RENTI AL/PL ATELE T RBC 4.13 x10e6 /uL 4.14-5 .80 below low normal Not Available [facility] ([facility]) [address] [place], [address], 01/13/2021 13:37:04 01/13/20 21 01/13/2021 CBC WITH DIFFE RENTI AL/PL ATELE T hemoglobin 11.4 g/dL 13.0-1 7.7 below low normal Not Available [facility] ([facility]) [address] [place], [address], 01/13/2021 13:37:04 01/13/20 21 01/13/2021 CBC WITH DIFFE RENTI AL/PL ATELE T hematocrit 34.9 % 37.5-5 1.0 below low normal Not Available [facility] ([facility]) [address] [place], [address], 01/13/2021 13:37:04 01/13/20 21 01/13/2021 CBC WITH DIFFE RENTI AL/PL ATELE T MCV 85 fL 79-97 Not Available [facility] ([facility]) [address] [facility], [place], [address], 01/13/2021 13:37:04 01/13/20 21 01/13/2021 CBC WITH DIFFE RENTI AL/PL ATELE T MCH 27.6 pg 26.6-3 3.0 Not Available [facility] ([facility]) [address] [facility], [place], [address], 01/13/2021 13:37:04 01/13/20 21 01/13/2021 CBC WITH DIFFE RENTI AL/PL ATELE T MCHC 32.7 g/dL 31.5-3 5.7 Not Available [facility] ([facility]) [address] [facility], [place], [address], 01/13/2021 13:37:04 01/13/20 21 01/13/2021 CBC WITH DIFFE RENTI AL/PL ATELE T RDW 14.4 % 11.6-1 5.4 Not Available [facility] ([facility]) [address] [facility], [place], [address], 01/13/2021 13:37:04 01/13/2001/13/2021 CBC WITH DIFFE RENTI AL/PL ATELE T platelets 237 x10e3 /uL 150-45 0 Not Available [facility] ([facility]) [address] [place], [address], 01/13/2021 13:37:04 01/13/20 21 01/13/2021 CBC WITH DIFFE RENTI AL/PL ATELE T neutrophils 59 % not estab. Not Available [facility] ([facility]) [address] [place], [address], 01/13/2021 13:37:04 01/13/20 21 01/13/2021 CBC WITH DIFFE RENTI AL/PL ATELE T lymphs 30 % not estab. Not Available [facility] ([facility]) [address] [facility], [place], [address], 01/13/2021 13:37:04 01/13/20 21 01/13/2021 CBC WITH DIFFE RENTI AL/PL ATELE T monocytes 9 % not estab. Not Available [facility] ([facility]) [address] [facility], [place], [address], 01/13/2021 13:37:04 01/13/20 21 01/13/2021 CBC WITH DIFFE RENTI AL/PL ATELE T eos 1 % not estab. Not Available [facility] ([facility]) [address] [facility], [place], [address], 01/13/2021 13:37:04 01/13/20 21 01/13/2021 CBC WITH DIFFE RENTI AL/PL ATELE T basos 1 % not estab. Not Available [facility] ([facility]) [address] [facility], [place], [address], 01/13/2021 13:37:04 01/13/20 21 01/13/2021 CBC WITH DIFFE RENTI AL/PL ATELE T neutrophils (absolute) 3.6 x10e3 /uL 1.4-7. 0 Not Available [facility] ([facility]) [address] [facility], [place], [address], 01/13/2021 13:37:04 01/13/20 21 01/13/2021 CBC WITH DIFFE RENTI AL/PL ATELE T lymphs (absolute) 1.8 x10e3 /uL 0.7-3. 1 Not Available [facility] ([facility]) [address] [facility], [place], [address], 01/13/2021 13:37:04 01/13/20 21 01/13/2021 CBC WITH DIFFE RENTI AL/PL ATELE T monocytes(ab solute) 0.6 x10e3 /uL 0.1-0. 9 Not Available [facility] ([facility]) [address] [place], [address], 01/13/2021 13:37:04 01/13/20 21 01/13/2021 CBC WITH DIFFE RENTI AL/PL ATELE T eos (absolute) 0.1 x10e3 /uL 0.0-0. 4 Not Available [facility] ([facility]) [address] [facility], [place], [address], 01/13/2021 13:37:04 01/13/20 21 01/13/2021 CBC WITH DIFFE RENTI AL/PL ATELE T baso (absolute) 0.0 x10e3 /uL 0.0-0. 2 Not Available [facility] ([facility]) [address] [place], [address], 01/13/2021 13:37:04 01/13/20 21 01/13/2021 CBC WITH DIFFE RENTI AL/PL ATELE T immature granulocytes 0 % not estab. Not Available [facility] ([facility]) [address] [place], [address], 01/13/2021 13:37:04 01/13/20 21 01/13/2021 CBC WITH DIFFE RENTI AL/PL ATELE T immature grans (abs) 0.0 x10e3 /uL 0.0-0. 1 Not Available [facility] ([facility]) [address] [place], [address], 01/13/2021 13:37:04 01/13/20 21 01/13/2021 COMP. METAB OLIC PANEL (14) glucose 184 mg/dL 65-99 above high normal Not Available [facility] ([facility]) [address] [place], [address], 01/13/2021 13:37:05 01/13/20 21 01/13/2021 COMP. METAB OLIC PANEL (14) BUN 20 mg/dL 8-27 Not Available [facility] ([facility]) [address] [facility], [place], [address], 01/13/2021 13:37:05 01/13/20 21 01/13/2021 COMP. METAB OLIC PANEL (14) creatinine 1.25 mg/dL 0.76-1 .27 Not Available [facility] ([facility]) [address] [facility], [place], [address], 01/13/2021 13:37:05 01/13/20 21 01/13/2021 COMP. METAB OLIC PANEL (14) eGFR if nonafricn AM 53 mL/mi n/1.7 3 >59 below low normal Not Available [facility] ([facility]) [address] [facility], [place], [address], 01/13/2021 13:37:05 01/13/20 21 01/13/2021 COMP. METAB [...] SN Task force . Not Available [facility] ([facility]) [address] [facility], [place], [address], 01/13/2021 13:37:05 01/13/20 21 01/13/2021 COMP. METAB OLIC PANEL (14) BUN/creatini ne ratio 16 10-24 Not Available [facility] ([facility]) [address] [facility], [place], [address], 01/13/2021 13:37:05 01/13/20 21 01/13/2021 COMP. METAB OLIC PANEL (14) sodium 139 mmol/ L 134-14 4 Not Available [facility] ([facility] [facility]) [address] [place] [place], [address], 01/13/2021 13:37:05 01/13/20 21 01/13/2021 COMP. METAB OLIC PANEL (14) potassium 4.9 mmol/ L 3.5-5. 2 Not Available [facility] ([facility]) [address] [place], [address], 01/13/2021 13:37:05 01/13/20 21 01/13/2021 COMP. METAB OLIC PANEL (14) chloride 102 mmol/ L 96-106 Not Available [facility] ([facility]) [address] [place], [address], 01/13/2021 13:37:05 01/13/20 21 01/13/2021 COMP. METAB OLIC PANEL (14) carbon dioxide, total 24 mmol/ L - Not Available [facility] ([facility]) [address] [place], [address], 01/13/2021 13:37:05 01/13/20 21 01/13/2021 COMP. METAB OLIC PANEL (14) calcium 9.2 mg/dL 8.6-10 .2 Not Available [facility] ([facility]) [address] [place] [place], [address], 01/13/2021 13:37:05 01/13/20 21 01/13/2021 COMP. METAB OLIC PANEL (14) protein, total 6.2 g/dL 6.0-8. 5 Not Available [facility] ([facility]) [address] [facility], [address], 01/13/2021 13:37:05 01/13/20 21 01/13/2021 COMP. METAB OLIC PANEL (14) albumin 4.2 g/dL 3.6-4. 6 Not Available [facility] ([facility]) [address], [place], [address], 01/13/2021 13:37:05 01/13/20 21 01/13/2021 COMP. METAB OLIC PANEL (14) globulin, total 2.0 g/dL 1.5-4. 5 Not Available [facility] ([facility]) [address], [place], [address], 01/13/2021 13:37:05 01/13/20 21 01/13/2021 COMP. METAB OLIC PANEL (14) A/G ratio 2.1 1.2-2. 2 Not Available [facility] ([facility]) [address], [place], [address], 01/13/2021 13:37:05 01/13/20 21 01/13/2021 COMP. METAB OLIC PANEL (14) bilirubin, total 0.3 mg/dL 0.0-1. 2 Not Available [facility] ([facility]) [address], [place], [address], 01/13/2021 13:37:05 01/13/20 21 01/13/2021 COMP. METAB OLIC PANEL (14) alkaline phosphatase 97 IU/L 48-121 Not Available [facility] ([facility]) [address] [facility], [place], [address], 01/13/2021 13:37:05 01/13/20 21 01/13/2021 COMP. METAB OLIC PANEL (14) AST (SGOT) 17 IU/L 0-40 Not Available [facility] ([facility]) [address] [facility], [place], [address], 01/13/2021 13:37:05 01/13/20 21 01/13/2021 COMP. METAB OLIC PANEL (14) ALT (SGPT) 11 IU/L 0-44 Not Available [facility] ([facility]) [address] [facility], [place], [address], 01/13/2021 13:37:05 01/13/20 21 01/13/2021 LIPID PANEL cholesterol, total 143 mg/dL 100-19 9 Not Available [facility] ([facility]) [address] [facility], [place], [address], 01/13/2021 13:37:06 01/13/20 21 01/13/2021 LIPID PANEL triglyceride s 153 mg/dL 0-149 above high normal Not Available [facility] ([facility]) [address] [facility], [place], [address], 01/13/2021 13:37:06 01/13/20 21 01/13/2021 LIPID PANEL HDL cholesterol 40 mg/dL >39 Not Available [facility] ([facility]) [address] [facility], [place], [address], 01/13/2021 13:37:06 01/13/20 21 01/13/2021 LIPID PANEL VLDL cholesterol ishmael 27 mg/dL 5-40 Not Available [facility] ([facility]) [address] [place], [address], 01/13/2021 13:37:06 01/13/20 21 01/13/2021 LIPID PANEL LDL chol calc ([facility]) 76 mg/dL 0-99 Not Available [facility] ([facility]) [address] [place], [address], 01/13/2021 13:37:06 01/13/20 21 01/13/2021 ALBUM IN/CR EAT RATIO , RANDO M UR creatinine, urine 155.9 mg/dL not estab. Not Available [facility] ([facility]) [address] [place], [address], 01/13/2021 13:37:07 01/13/20 21 01/13/2021 ALBUM IN/CR EAT RATIO , RANDO M UR albumin, urine 25.7 ug/mL not estab. Not Available [facility] ([facility]) [address] [facility], [place], [address], 01/13/2021 13:37:07 01/13/20 21 01/13/2021 ALBUM IN/CR EAT RATIO , GURINDER García UR alb/creat ratio 16 mg/g_ creat 0-29 María l: 0 - 29 Moder ately incre ased: 30 - 300 Sever royal incre ased: >300 Not Available [facility] ([facility]) [address] [facility], [place], [address], 01/13/2021 13:37:07 01/13/20 21 01/13/2021 HEMOG LOBIN A1C hemoglobin A1C 6.8 % 4.8-5. 6 above high normal . Predi abete s: 5.7 - 6.4 Diabe chel: >6.4 Glyce ad contr ol for adult s with diabe chel: <7.0 Not Available [facility] ([facility]) [address] [facility], [place], [address], 01/13/2021 13:37:08 01/13/20 21 01/12/2021 urina lysis , dipst ick leukocytes trace none negati ve abnormal Not Available [facility] [address], [place], [address], 01/12/2021 10:14:17 01/13/20 21 01/12/2021 urina lysis , dipst ick nitrite negati ve none negati ve normal Not Available [facility] [address], [place], [address], 01/12/2021 10:14:17 01/13/20 21 01/12/2021 urina lysis , dipst ick urobilinogen 0.2 eu/dL 0.2-1 normal Not Available [facility] [address], [place], [address], 01/12/2021 10:14:17 01/13/20 21 01/12/2021 urina lysis , dipst ick protein negati ve none negati ve normal Not Available [facility] [address], [place], [address], 01/12/2021 10:14:17 01/13/20 21 01/12/2021 urina lysis , dipst ick pH 5.5 none 4.6-8 normal Not Available [facility] [address], [place], [address], 01/12/2021 10:14:17 01/13/20 21 01/12/2021 urina lysis , dipst ick blood negati ve none negati ve normal Not Available [facility] [address], [place], [address], 01/12/2021 10:14:17 01/13/20 21 01/12/2021 urina lysis , dipst ick specific gravity 1.025 none 1.007- 1.03 normal Not Available [facility] [address], [place], [address], 01/12/2021 10:14:17 01/13/20 21 01/12/2021 urina lysis , dipst ick ketone negati ve none negati ve normal Not Available [facility] [address], [place], [address], 01/12/2021 10:14:17 01/13/20 21 01/12/2021 urina lysis , dipst ick bilirubin negati ve none negati ve normal Not Available [facility] [address], [place], [address], 01/12/2021 10:14:17 01/13/20 21 01/12/2021 urina lysis , dipst ick glucose negati ve none negati ve normal Not Available [facility] [address], [place], [address], 01/12/2021 10:14:17 01/13/20 21 01/12/2021 urina lysis , dipst ick appearance none clear Not Available [facility] [address], [place], [address], 01/12/2021 10:14:17 01/13/20 21 01/12/2021 urina lysis , dipst ick color yellow none colorl ess-am lloyd normal Not Available [facility] [address], [place], [address], 01/12/2021 10:14:17 01/13/20 21 01/12/2021 urina lysis , dipst ick clarity CLEAR clear normal Not Available [facility] [address], [place], [address], 01/12/2021 10:14:17 07/15/20 21 07/16/2021 CBC WITH DIFFE RENTI AL/PL ATELE T WBC 5.4 x10e3 /uL 3.4-10 .8 Not Available [facility] ([facility]) [address] [place], [address], 07/16/2021 13:36:40 07/15/20 21 07/16/2021 CBC WITH DIFFE RENTI AL/PL ATELE T RBC 4.44 x10e6 /uL 4.14-5 .80 Not Available [facility] ([facility]) [address] [place], [address], 07/16/2021 13:36:40 07/15/20 21 07/16/2021 CBC WITH DIFFE RENTI AL/PL ATELE T hemoglobin 11.8 g/dL 13.0-1 7.7 below low normal Not Available [facility] ([facility]) [address] [place], [address], 07/16/2021 13:36:40 07/15/20 21 07/16/2021 CBC WITH DIFFE RENTI AL/PL ATELE T hematocrit 36.8 % 37.5-5 1.0 below low normal Not Available [facility] ([facility]) [address] [facility], [place], [address], 07/16/2021 13:36:40 07/15/20 21 07/16/2021 CBC WITH DIFFE RENTI AL/PL ATELE T MCV 83 fL 79-97 Not Available [facility] ([facility]) [address] [facility], [place], [address], 07/16/2021 13:36:40 07/15/20 21 07/16/2021 CBC WITH DIFFE RENTI AL/PL ATELE T MCH 26.6 pg 26.6-3 3.0 Not Available [facility] ([facility]) [address] [facility], [place], [address], 07/16/2021 13:36:40 07/15/20 21 07/16/2021 CBC WITH DIFFE RENTI AL/PL ATELE T MCHC 32.1 g/dL 31.5-3 5.7 Not Available [facility] ([facility]) [address] [place], [address], 07/16/2021 13:36:40 07/15/20 21 07/16/2021 CBC WITH DIFFE RENTI AL/PL ATELE T RDW 15.4 % 11.6-1 5.4 Not Available [facility] ([facility]) [address] [place], [address], 07/16/2021 13:36:40 07/15/20 21 07/16/2021 CBC WITH DIFFE RENTI AL/PL ATELE T platelets 224 x10e3 /uL 150-45 0 Not Available [facility] ([facility]) [address] [place], [address], 07/16/2021 13:36:40 07/15/20 21 07/16/2021 CBC WITH DIFFE RENTI AL/PL ATELE T neutrophils 60 % not estab. Not Available [facility] ([facility]) [address] [facility], [place], [address], 07/16/2021 13:36:40 07/15/20 21 07/16/2021 CBC WITH DIFFE RENTI AL/PL ATELE T lymphs 28 % not estab. Not Available [facility] ([facility]) [address] [facility], [place], [address], 07/16/2021 13:36:40 07/15/20 21 07/16/2021 CBC WITH DIFFE RENTI AL/PL ATELE T monocytes 11 % not estab. Not Available [facility] ([facility]) [address] [facility], [place], [address], 07/16/2021 13:36:40 07/15/20 21 07/16/2021 CBC WITH DIFFE RENTI AL/PL ATELE T eos 1 % not estab. Not Available [facility] ([facility]) [address] [facility], [place], [address], 07/16/2021 13:36:40 07/15/20 21 07/16/2021 CBC WITH DIFFE RENTI AL/PL ATELE T basos 0 % not estab. Not Available [facility] ([facility]) [address] [facility], [place], [address], 07/16/2021 13:36:40 07/15/20 21 07/16/2021 CBC WITH DIFFE RENTI AL/PL ATELE T neutrophils (absolute) 3.1 x10e3 /uL 1.4-7. 0 Not Available [facility] ([facility]) [address] [facility], [place], [address], 07/16/2021 13:36:40 07/15/20 21 07/16/2021 CBC WITH DIFFE RENTI AL/PL ATELE T lymphs (absolute) 1.5 x10e3 /uL 0.7-3. 1 Not Available [facility] ([facility]) [address] [facility], [place], [address], 07/16/2021 13:36:40 07/15/20 21 07/16/2021 CBC WITH DIFFE RENTI AL/PL ATELE T monocytes(ab solute) 0.6 x10e3 /uL 0.1-0. 9 Not Available [facility] ([facility]) [address] [facility], [place], [address], 07/16/2021 13:36:40 07/15/20 21 07/16/2021 CBC WITH DIFFE RENTI AL/PL ATELE T eos (absolute) 0.1 x10e3 /uL 0.0-0. 4 Not Available [facility] ([facility]) [address] [facility], [place], [address], 07/16/2021 13:36:40 07/15/20 21 07/16/2021 CBC WITH DIFFE RENTI AL/PL ATELE T baso (absolute) 0.0 x10e3 /uL 0.0-0. 2 Not Available [facility] ([facility]) [address] [place], [address], 07/16/2021 13:36:40 07/15/20 21 07/16/2021 CBC WITH DIFFE RENTI AL/PL ATELE T immature granulocytes 0 % not estab. Not Available [facility] ([facility]) [address] [facility], [place], [address], 07/16/2021 13:36:40 07/15/20 21 07/16/2021 CBC WITH DIFFE RENTI AL/PL ATELE T immature grans (abs) 0.0 x10e3 /uL 0.0-0. 1 Not Available [facility] ([facility]) [address] [place], [address], 07/16/2021 13:36:40 07/15/20 21 07/16/2021 COMP. METAB OLIC PANEL (14) glucose 133 mg/dL 65-99 above high normal Not Available [facility] ([facility]) [address] [facility], [place], [address], 07/16/2021 13:36:41 07/15/20 21 07/16/2021 COMP. METAB OLIC PANEL (14) BUN 15 mg/dL 8-27 Not Available [facility] ([facility]) [address] [facility], [place], [address], 07/16/2021 13:36:41 07/15/20 21 07/16/2021 COMP. METAB OLIC PANEL (14) creatinine 1.08 mg/dL 0.76-1 .27 Not Available [facility] ([facility]) [address] [facility], [place], [address], 07/16/2021 13:36:41 07/15/20 21 07/16/2021 COMP. METAB OLIC PANEL (14) eGFR if nonafricn AM 63 mL/mi n/1.7 3 >59 Not Available [facility] ([facility]) [address] [facility], [place], [address], 07/16/2021 13:36:41 07/15/20 21 07/16/2021 COMP. METAB [...] a race varia ble. Not Available [facility] ([facility]) [address] [facility], [place], [address], 07/16/2021 13:36:41 07/15/20 21 07/16/2021 COMP. METAB OLIC PANEL (14) BUN/creatini ne ratio 14 10-24 Not Available [facility] ([facility]) [address] [facility], [place], [address], 07/16/2021 13:36:41 07/15/20 21 07/16/2021 COMP. METAB OLIC PANEL (14) sodium 145 mmol/ L 134-14 4 above high normal Not Available [facility] ([facility]) [address] [place] [place], [address], 07/16/2021 13:36:41 07/15/20 21 07/16/2021 COMP. METAB OLIC PANEL (14) potassium 4.2 mmol/ L 3.5-5. 2 Not Available [facility] ([facility]) [address] [place] [place], [address], 07/16/2021 13:36:41 07/15/20 21 07/16/2021 COMP. METAB OLIC PANEL (14) chloride 104 mmol/ L 96-106 Not Available [facility] ([facility]) [address] [place], [address], 07/16/2021 13:36:41 07/15/20 21 07/16/2021 COMP. METAB OLIC PANEL (14) carbon dioxide, total 24 mmol/ L - Not Available [facility] ([facility]) [address] [place] [place], [address], 07/16/2021 13:36:41 07/15/20 21 07/16/2021 COMP. METAB OLIC PANEL (14) calcium 8.8 mg/dL 8.6-10 .2 Not Available [facility] ([facility]) [address] [place], [address], 07/16/2021 13:36:41 07/15/20 21 07/16/2021 COMP. METAB OLIC PANEL (14) protein, total 6.4 g/dL 6.0-8. 5 Not Available [facility] ([facility]) [address] [place], [address], 07/16/2021 13:36:41 07/15/20 21 07/16/2021 COMP. METAB OLIC PANEL (14) albumin 4.2 g/dL 3.6-4. 6 Not Available [facility] ([facility]) [address] [facility], [place], [address], 07/16/2021 13:36:41 07/15/20 21 07/16/2021 COMP. METAB OLIC PANEL (14) globulin, total 2.2 g/dL 1.5-4. 5 Not Available [facility] ([facility]) [address] [facility], [place], [address], 07/16/2021 13:36:41 07/15/20 21 07/16/2021 COMP. METAB OLIC PANEL (14) A/G ratio 1.9 1.2-2. 2 Not Available [facility] ([facility]) [address] [facility], [place], [address], 07/16/2021 13:36:41 07/15/20 21 07/16/2021 COMP. METAB OLIC PANEL (14) bilirubin, total 0.5 mg/dL 0.0-1. 2 Not Available [facility] ([facility]) [address] [facility], [place], [address], 07/16/2021 13:36:41 07/15/20 21 07/16/2021 COMP. METAB OLIC PANEL (14) alkaline phosphatase 100 IU/L 44-121 Ple ase note refer ence inter loli chinchilla e Not Available [facility] ([facility]) [address] [facility], [place], [address], 07/16/2021 13:36:41 07/15/20 21 07/16/2021 COMP. METAB OLIC PANEL (14) AST (SGOT) 15 IU/L 0-40 Not Available [facility] ([facility]) [address] [facility], [place], [address], 07/16/2021 13:36:41 07/15/20 21 07/16/2021 COMP. METAB OLIC PANEL (14) ALT (SGPT) 12 IU/L 0-44 Not Available [facility] ([facility]) [address] [place], [address], 07/16/2021 13:36:41 07/15/20 21 07/16/2021 LIPID PANEL cholesterol, total 198 mg/dL 100-19 9 Not Available [facility] ([facility]) [address] [place], [address], 07/16/2021 13:36:42 07/15/20 21 07/16/2021 LIPID PANEL triglyceride s 219 mg/dL 0-149 above high normal Not Available [facility] ([facility]) [address] [place], [address], 07/16/2021 13:36:42 07/15/20 21 07/16/2021 LIPID PANEL HDL cholesterol 50 mg/dL >39 Not Available [facility] ([facility]) [address] [place], [address], 07/16/2021 13:36:42 07/15/20 21 07/16/2021 LIPID PANEL VLDL cholesterol ishmael 38 mg/dL 5-40 Not Available [facility] ([facility]) [address] [place], [address], 07/16/2021 13:36:42 07/15/20 21 07/16/2021 LIPID PANEL LDL chol calc ([facility]) 110 mg/dL 0-99 above high normal Not Available [facility] ([facility]) [address] [place], [address], 07/16/2021 13:36:42 07/15/20 21 07/16/2021 IRON AND TIBC iron bind.cap.(TI BC) 256 ug/dL 250-45 0 Not Available [facility] ([facility]) [address] [place], [address], 07/16/2021 13:36:42 07/15/20 21 07/16/2021 IRON AND TIBC UIBC 204 ug/dL 111-34 3 Not Available [facility] ([facility]) [address] [place], [address], 07/16/2021 13:36:42 07/15/20 21 07/16/2021 IRON AND TIBC iron 52 ug/dL 38-169 Not Available [facility] ([facility]) [address] [facility], [place], [address], 07/16/2021 13:36:42 07/15/20 21 07/16/2021 IRON AND TIBC iron saturation 20 % 15-55 Not Available [facility] ([facility]) [address] [place], [address], 07/16/2021 13:36:42 07/15/20 21 07/16/2021 ALBUM IN/CR EAT RATIO , GURINDER García UR creatinine, urine 158.2 mg/dL not estab. Not Available [facility] ([facility]) [address] [place], [address], 07/16/2021 13:36:43 07/15/20 21 07/16/2021 ALBUM IN/CR EAT RATIO , GURINDERO M UR albumin, urine 36.1 ug/mL not estab. Not Available [facility] ([facility]) [address] [place], [address], 07/16/2021 13:36:43 07/15/20 21 07/16/2021 ALBUM IN/CR EAT RATIO , RANDO M UR alb/creat ratio 23 mg/g_ creat 0-29 María l: 0 - 29 Moder ately incre ased: 30 - 300 Sever royal incre ased: >300 Not Available [facility] ([facility]) [address] [place], [address], 07/16/2021 13:36:43 07/15/2007/16/2021 HEMOG LOBIN A1C hemoglobin A1C 6.9 % 4.8-5. 6 above high normal . Predi abete s: 5.7 - 6.4 Diabe chel: >6.4 Glyce ad contr ol for adult s with diabe chel: <7.0 Not Available [facility] ([facility]) [address], [place], [address], 07/16/2021 13:36:43 Result Notes None recorded. Problems Name Problem SNOMED Code Status Onset Date Resolution Date Notes Provider Name and Address Organization Details Recorded Time Essential hypertensi on 57653255 Active 2020 Li Collins [facility] 13:49:58 Diabetes mellitus 66633682 Active 2020 type2 Carmen Rick APRN [address] [place], [place], [address] [place] [address] , [facility] 13:05:29 Hyperlipid emia 85058481 Active 2020 Lijeff Garridoers [facility] 13:50:22 Primary malignant neoplasm of prostate 02043064 Active 2020 Li Dennis [facility] 13:50:55 Polyp of colon 37737522 Active 2020 Carmen Rick APRN [address] [place], [place], [address] [place] [address] , [facility] 13:04:06 Anemia of chronic disease 268111330 Active 2020 Carmen Rick APRN [address] [place], [place], [address] [place] [address] , [facility] 13:04:48 Neurogenic urinary bladder 996535722 Active 2020 Carmen Rick APRN [address] [place], [address], [facility] 13:05:03 Gastroesop hageal reflux disease 079606910 Active 2020 Carmen Rick APRN [address] [place], [place], [address] [place] [address], [facility] 13:05:34 History of Helicobact er pylori infection 4466038829610 9108 Active 2020 Carmen Rick APRN [address] [place], [place], [address] [place] [address], [facility] 13:06:09 Sensorineu ral hearing loss of bilateral ears 654474007 Active 2020 Carmen Rick APRN [address] 13:06:24 Pain of left shoulder joint 2562706772412 9109 Active 2020 Carmen Rick APRN [address] [place] [address] , [facility], [facility] 13:14:51 Bilateral knee pain Active 2020 Carmen Rick APRN [address], [facility] 08:45:58 Memory impairment 353627938 Active 2020 Carmen Rick APRN [address] [place] [address], [facility] 08:46:00 Hematochez ia 216051020 Active 2020 Carmen Rick APRN [address] 08:46:01 Chronic constipati on 291504346 Active 2020 Carmen Rick APRN [address] [facility] 08:46:06 Hemoglobin below reference range 481882009 Active 2020 Carmen Rick APRN [address] [place], [place], [address] [place] [address] 08:46:07 Type 2 diabetes mellitus 81527785 Active 2020 Carmen Rick APRN [address] [place], [place], [address] [place] [address] 07:54:27 Urinary symptoms 266328495 Active 2020 Carmen Rick APRN [address] [place], [place], [address] [place] [address] 07:54:29 Obesity 974873741 Active 2020 Carmen Rick APRN [address] [place], [place], [address] [place] [address] 07:54:31 Dyslipidem ia 210606644 Active 2020 Carmen Rick APRN [address] [place], [place], [address] [place] [address] 07:54:38 Gastroesop hageal reflux disease without esophagiti s 593490758 Active 2020 Carmen Rick APRN [address] [place], [place], [address] [place] [address] 07:54:55 Tobacco dependence in remission 961218648 Active 2020 Carmen Rick APRN [address] [place], [place], [address] [place] [address] 07:54:57 Vaccine declined by patient 674583196499 Active 2020 Carmen Rick APRN [address] [place], [place], [address] [place] [address] , [facility] 07:55:21 Advance directive discussed with patient 900487787 Active 2020 Carmen Rick APRN [address] [place], [place], [address] [place] [address] 07:55:23 At increased risk for falls 952480627 Active 2020 Carmen Rick APRN [address] 07:55:24 Secondary immune deficiency disorder 58607718 Active 2020 Carmen Rick APRN [address] [place], [place], [address] [place] [address] 07:56:40 Problem Notes None recorded. Procedures Surgical History Date Name Laterality Status Provider Name and Address Organization Details Recorded Time 8 prostatectomy completed [facility] 01/05/2021 13:52:29 Imaging Results None recorded. Procedure Notes None recorded. Medical Equipment None Reported. Allergies Allergen ID Allergen Name Allergen Category Reaction Reaction Severity Criticality Documentation Date Start Date Code Code System Note Provider Name and Address Organization Details Recorded Time 24872 oxycodone medicatio n Not available Not available Not available 01/05/2021 7804 RxNorm [facility] 13:46:10 Medications Name Sig Start Date [...] Address Organization Details Last Updated DateTime 1 53382.6 4 g 32.3 kg/m2 156.21 cm 97.6 [degF] 98 % 97 /min 18 /min 129/68 mm[Hg] Li Collins [facility] 13:45:40 Date Recorded Body height Body mass index (BMI) Body weight Heart rate Respiratory rate Body temperature Oxygen saturation Systolic And Diastolic Provider Name and Address Organization Details Last Updated DateTime 1 156.21 cm 31.8 kg/m2 03792.3 g 98 /min 17 /min 98 [degF] 97 % 126/76 mm[Hg] [facility] 09:52:13 Date Recorded Body height Body mass index (BMI) Body weight Provider Name and Address Organization Details Last Updated DateTime 01/20/2021 156.21 cm 31.6 kg/m2 26855.7 g Liyahemma Lockhart [facility] 01/20/2021 13:41:21 Date Recorded Body height Body mass index (BMI) Body weight Respiratory rate Body temperature Oxygen saturation Heart rate Systolic And Diastolic Provider Name and Address Organization Details Last Updated DateTime 1 156.21 cm 32 kg/m2 81953.8 9 g 18 /min 98.3 [degF] 99 % 77 /min 122/78 mm[Hg] [facility] 13:12:46 Date Recorded Body height Body mass index (BMI) Body weight Heart rate Respiratory rate Body temperature Oxygen saturation Systolic And Diastolic Provider Name and Address Organization Details Last Updated DateTime 1 156.21 cm 32 kg/m2 86836.5 9 g 96 /min 18 /min 98.1 [degF] 97 % 124/81 mm[Hg] Mylene Snell [facility] 14:57:50 Social History Question Answer Notes LastModified by Organizat ion Details LastModified Time Tobacco Smoking Status Never Smoker Li Collins [facility] 01/05/2021 13:51:55 Medical Terms Are Complicated, And Many People Find The Words Difficult To Understand. Do You Ever Get Help From Others In Filling Out Forms, Reading Prescription Labels, Insurance Forms, Or Health Education Sheets? Often [email or web address] Information no t available 01/12/2021 Are You Worried About Losing Your Housing? 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 No [email or web address] Information n ot available 01/12/2021 In The Past Year Have You Or Any Of Your Family Members Been Unable To Get CLOTHING When It Was Really Needed? No [email or web address] Information n ot available 01/12/2021 In The Past Year Have You Or Any Of Your Family Members Been Unable To Get FOOD When It Was Really Needed? No [email or web address] Information not available 01/12/2021 In The Past Year Have You Or Any Of Your Family Members Been Unable To Get MEDICINE Or HEALTH CARE When It Was Really Needed? No [email or web address] Information not available 01/12/2021 In The Past Year Have You Or Any Of Your Family Members Been Unable To Get PHONE When It Was Really Needed? No [email or web address] Information not available 01/12/2021 In The Past Year Have You Or Any Of Your Family Members Been Unable To Get UTILITIES When It Was Really Needed? No [email or web address] Information n ot available 01/12/2021 Has Lack Of Transportation Kept You From Medical Appointments, Meetings, Work, Or From Getting Things Needed For Daily Living? No [email or web address] Information not available 01/12/2021 In The Past Year Have You Or Any Of Your Family Members Been Unable To Get OTHER NECESSITIES When It Was Really Needed? No [email or web address] Information not available 01/12/2021 How Often Do You See Or Talk To People That You Care About And Feel Close To? 3 To 5 Times A Week [email or web address] Information not available 01/12/2021 How Stressed Are You? Somewhat [email or web address] Information not available 01/12/2021 In The Past Year, Have You Spent More Than 2 Nights In A Row In A Nursing Home, Long Term, Senior Care Center, Or Juvenile Correctional Facility? No [email or web address] Information not available 01/12/2021 Are You A Refugee? No [email or web address] Inform ation not available 01/12/2021 Do You Feel Physically And Emotionally Safe Where You Currently Live? Yes [email or web address] Information not available 01/12/2021 What Was The Date Of Your Most Recent Tobacco Screening? 07/15/2021 [email or web address] Information n ot available 07/15/2021 Sex: Male Functional Status Question Answer Note LastModified by Organization D etails LastModified Time Do you or have you ever used any other forms of tobacco or nicotine? No [email or web address] Information not available 01/05/2021 What is your occupation? N/A [email or web address] Information not available 01/05/2021 Mental Status None recorded. Family History Relationship Description Onset Age of this Age Resolved Age Notes LastModified by Organization Details LastModified Time Mother Family history of stroke Not available 01/05 13:51:17 Father History of emphysema [email or web address] Not available 01/05 13:51:37 Father Family history of stroke [email or web address] Not available 01/05 13:51:40 Notes:. Medical History Condition Response Diabetes Y Hypertension Y High Cholesterol Y Immunizations Vaccine Type Date Status Note Provider Nam e and Address Organization Details Recorded Time COVID-19, mRNA, LNP-S, PF, 100 mcg/0.5mL dose or 50 mcg/0.25mL dose 09/25/2020 completed Kerwin Anaya [facility] 04/10/2021 13:13:04 Influenza, high-dose, quadrivalent, PF 03/31/2021 completed Mylene Snell [facility] 07/15/2021 14:58:12 Past Encounters Encounter ID Performer Location Encounter Start Date Encounter Closed Date Diagnosis/Indication Diagnosis SNOMED-CT Code Diagnosis ICD10 Code Diagnosis IMO Codes Diagnosis Note [id number] Carmen Rick APRN [facility] [address] [place] [address] 01/05/2021 13:30:14 01/05/2021 14:52:38 Obesity 156953117 E66.9 Diet education 23443096 Z71.3 Urinary symptoms 3410900 08 R39.9 burning with urgency.Hx prostatect jose luis Abrasion o f skin of left ear 6413139555 4263113 S00.412A Avoid Q- Tips.Hx Insect Left ear s/p removal 3 weeks ago. Type 2 dom betes mellitus 19501142 E11.9 Reports glucose under control Dyslipidemia 729066149 E 78.5 Pt to bring in records from prev. PCP Essential hypertension 81174066 I10 BP: 129/68 Dribbling of urine 56490 000 N39.43 REfill requested. Urology referral placed Gastroesop hageal reflux disease without esophagitis 631717893 K21.9 STable Acute urin willis tract infection 132467900 N39.0 UA with 2+ LE's, protein and 1+ blood.Rx Bactrim. 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 01/12: Left Ear improved - reports fullness . Cerumen has softened, still with dried blood to left ear canal partially obscuring the TM. Type 2 dom betes mellitus 16563848 E11.9 Reports glucose under controlPer medical records 10/15/20: HgbA1c 7.7. Onmetformi n 100mg po BID, Actos 45mg daily and Glipizide 10mg po BID. Dyslipidemia 296648076 E 78.5 Lipitor 20mg at HS Essential hypertension 76749141 I10 BP 126/76 Follow Low salt diet.On Lisinopril 40mg po daily , was on Amlodipine 10mg po daily?Dorothea y ASA 81mg Dribbling of urine 82350 000 N39.43 REfill requested. Urology referral placed Gastroesop hageal reflux disease without esophagitis 720724672 K21.9 STable Acute urin willis tract infection 404269795 N39.0 UA with 2+ LE's, protein and 1+ blood.Rx Bactrim. 01/12/21 improved recheck UA today Tobacco de pendence in remission 250127075 F17.201 Primary ma lignant neoplasm of prostate 85963744 C61 Dx in 1992, s/p prostatect [place] in [place] 1992. Urologist Dr Jayna maldonado , last seen Apr 2020. Hx hypogonadi sm, neurogenic bladder and recurrent UTI.Last PSA 0.11 05/01/19 Neurogenic urinary bladder 549935796 N31.9 Last seen by urol 05/06. Impramine 10mg po BID and Oxybutnin 5mg at HS Pain of le ft shoulder joint [id number] 6659559 M25.512 mild joint arthritis per imaging 09/2017He declined PT previously . [id number] Carmen Rick APRN [facility] [address] [address] 01/20/2021 13:34:36 01/20/2021 15:33:54 Obesity 504448089 E66.9 Diet education 59394106 Z71.3 Urinary symptoms 8458907 08 R39.9 burning with urgency.Hx prostatect omyUrology referral [id number] Completed course of abx after (+) UA.UA recheck today 01/20/21 UA with trace LE's. No blood. Referral approved to see Dr. Vazquez- pt to schedule appt. Abrasion o f skin of left ear 0957773506 9828916 S00.412A Avoid Q- Tips.Hx Insect Left ear s/p removal 3 weeks ago. 01/12: Left Ear improved - reports fullness . Cerumen has softened, still with dried blood to left ear canal partially obscuring the TM. 01/20/21 Referral to ENT/ [facility] approved. Type 2 dom betes mellitus 38238742 E11.9 Reports glucose under controlPer medical records 10/15/20: HgbA1c 7.7. On metformin 100mg po BID, Actos 45mg daily and Glipizide 10mg po BID. 01/20/21 HgbA1c: 6.8. Cont with current med regimen. On metformin 100mg po BID, Actos 45mg daily and Glipizide 10mg po BID. Dyslipidemia 934607131 E 78.5 Lipitor 20mg at HS01/20/21 Tot chol. 143, Trig 153, LDL 76Cont with Lipitor 20mg at HS Essential hypertension 65361224 I10 BP 126/76 Follow Low salt diet.On Lisinopril 40mg po daily , was on Amlodipine 10mg po daily?Dorothea y ASA 81mg 01/20/21 Cont with current med regimen Dribbling of urine 60363 000 N39.43 REfill requested. Urology referral [id number] 01/05: To see Dr. Vazquez Gastrogavinop hageal reflux disease without esophagitis 745183478 K21.9 STable Acute urin willis tract infection 538525095 N39.0 UA with 2+ LE's, protein and 1+ blood.Rx Bactrim. 01/12/21 improved recheck UA today 01/20/21: UA with trace LE's, no Blood. Tobacco de pendence in remission 183226672 F17.201 Primary ma lignant neoplasm of prostate 84471580 C61 Dx in 1992, s/p prostatect [place] 1992. Urologist Dr Jayna maldonado , last seen Apr 2020. Hx hypogonadi sm, neurogenic bladder and recurrent UTI.Last PSA 0.11 05/01/19 Neurogenic urinary bladder 581273710 N31.9 Last seen by urol 05/06. Impramine 10mg po BID and Oxybutnin 5mg at HS Pain of le ft shoulder joint 8938288652 6195035 M25.512 mild joint arthritis per imaging 09/2017He declined PT previously . Hemoglobin below reference range 316665647 D64.9 Hgb 11.4, HCT 34.9. Normal MCV and MCH. Hx anemia of chronic diseasePt case entered for Fe Panel, Ferritin , & FIT Chronic constipation 236 775122 K59.09 Test resul t to patient by telephone 814705813 Z71.2 Labs reviewed [id number] Carmen Rick APRN [facility] [address] [place] [address] 04/10/2021 12:47:04 04/10/2021 13:55:11 Obesity 674167324 E66.9 Pt educated on importance of lifestyle modificati on which should include but not limited to an exercise regime and diet modificati on as discussed on visit. Diet education 63959222 Z71.3 Urinary symptoms 9440701 08 R39.9 burning with urgency.Hx prostatect omyUrology referral [id number] Completed course of abx after (+) UA.UA recheck today 01/20/21 UA with trace LE's. No blood. Referral approved to see Dr. Vazquez- pt to schedule appt. 04/10/21 Prostate f/u, pt reports he has frequency and blood coming from his rectum.-He needs GI/PCP for his constipati on and blood per rectum.[place] el regimen discussed as it can also be worsen his LUTS.Sampl e of myrbetriq given for his LUTSF/U: in 4 weeksPt reports improvemen t of LUTS Abrasion o f skin of left ear 3855128464 0037975 S00.412A Avoid Q- Tips.Hx Insect Left ear s/p removal 3 weeks ago. 01/12: Left Ear improved - reports fullness . Cerumen has softened, still with dried blood to left ear canal partially obscuring the TM. 01/20/21 Referral to ENT/ [facility] approved. 04/10/21 ENT f/u completed. FB removed. Type 2 dom betes mellitus 30308111 E11.9 Reports glucose under controlPer medical records 10/15/20: HgbA1c 7.7. On metformin 100mg po BID, Actos 45mg daily and Glipizide 10mg po BID. 01/20/21 HgbA1c: 6.8. Cont with current med regimen. On metformin 100mg po BID, Actos 45mg daily and Glipizide 10mg po BID. 04/10/21 c/w metformin 100mg po BID, Actos 45mg daily and Glipizide 10mg po BID. Dyslipidemia 156103338 E 78.5 Lipitor 20mg at HS01/20/21 Tot chol. 143, Trig 153, LDL 76Cont with Lipitor 20mg at HS Essential hypertension 53623960 I10 BP 126/76 Follow Low salt diet.On Lisinopril 40mg po daily , was on Amlodipine 10mg po daily?Dorothea y ASA 81mg 01/20/21 Cont with current med regimenBP /2 11/05 stop amlodipine 10mg po daily ? pedal edema x 1 weekand Follow low salt diet Gastroesop hageal reflux disease without esophagitis 237598903 K21.9 STable Tobacco de pendence in remission 670444492 F17.201 Primary ma lignant neoplasm of prostate 37892938 C61 Dx in 1992, s/[place] prostate[place] 1992. Urologist Dr Dorantes i , last seen Apr 2020. Hx hypogonadi sm, neurogenic bladder and recurrent UTI.Last PSA 0.11 05/01/1909 Urology appt completed for LUTS Neurogenic urinary bladder 663934171 N31.9 Last seen by urol 05/06. Impramine 10mg po BID and Oxybutnin 5mg at HS Pain of le ft shoulder joint 8638096802 6647161 M25.512 mild joint arthritis per imaging 09/2017He declined PT previously . Hemoglobin below reference range 434965310 D64.9 Hgb 11.4, HCT 34.9. Normal MCV and MCH. Hx anemia of chronic diseasePt case entered for Fe Panel, Ferritin , & FIT Chronic constipation 236 328388 K59.09 No improvemen t with Colace Hematochezia 502616867 K 92.1 CBC 01/12/21 with Hgb 11.4, Hct 34.9Pt reporting rectal bleeding to urologistG I referral provided to pt in person Memory impairment 905896 006 R41.3 MMSE 24Dtr reported concern with memory Bilateral knee pain 1187 853780 6430813 M25.561 M25.562 Pt refuses Ortho referral or steroids [id number] Carmen Rick APRN [facility] [address] [address] 07/15/2021 14:34:11 07/15/2021 16:00:16 Obesity 566087460 E66.9 Pt educated on importance of lifestyle modificati on which should include but not limited to an exercise regime and diet modificati on as discussed on visit. Diet education 23095157 Z71.3 Urinary symptoms 8656751 08 R39.9 burning with urgency.Hx prostatect omyUrology referral [id number] Completed course of abx after (+) UA.UA recheck today 01/20/21 UA with trace LE's. No blood. Referral approved to see Dr. Vazquez- pt to schedule appt. 04/10/21 Prostate f/u, pt reports he has frequency and blood coming from his rectum.-He needs GI/PCP for his constipati on and blood per rectum.[place] el regimen discussed as it can also be worsen his LUTS.Sampl e of myrbetriq given for his LUTSF/U: in 4 weeksPt reports improvemen t of LUTS Type 2 dom betes mellitus 09701337 E11.9 Reports glucose under controlPer medical records [...] 07/15/21 Pt reports home glucose good Dyslipidemia 827202865 E 78.5 Lipitor 20mg at HS01/20/21 Tot chol. 143, Trig 153, LDL 76Cont with Lipitor 20mg at HS Essential hypertension 69448067 I10 BP 126/76 Follow Low salt diet.On Lisinopril 40mg po daily , was on Amlodipine 10mg po daily?Dorothea y ASA 81mg 01/20/21 Cont with current med regimenBP zqemom78/2 11/05 stop amlodipine 10mg po daily ? pedal edema x 1 weekand Follow low salt diet Has been taking amlodipine 10mg, 1/2 tablet daily- less pedal edema . 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 Urologist Dr Jayna maldonado , last seen Apr 2020. Hx hypogonadi sm, neurogenic bladder and recurrent UTI.Last PSA 0.11 05/01/1909 / Urology appt completed for LUTS Neurogenic urinary bladder 754777921 N31.9 Last seen by urol 05/06. Impramine 10mg po BID and Oxybutnin 5mg at HS Pain of le ft shoulder joint 2849077445 3576488 M25.512 mild joint arthritis per imaging 09/2017He declined PT previously . Hemoglobin below reference range 624430093 D64.9 Hgb 11.4, HCT 34.9. Normal MCV and MCH. Hx anemia of chronic diseasePt case entered for Fe Panel, Ferritin , & FIT Chronic constipation 236 709462 K59.09 No improvemen t with Colace Hematochezia 321312840 K 92.1 CBC 01/12/21 with Hgb 11.4, Hct 34.9Pt reporting rectal bleeding to urologistG I referral provided to pt in person 07/15/21 Pt has not made appt with GI - referral provided to pt in person Memory impairment 090353 006 R41.3 MMSE 24Dtr reported concern with memory Bilateral knee pain 1187 670179 8195312 M25.561 M25.562 Pt refuses Ortho referral or steroids Vaccine de clined by patient 3683735851 02 Z28.20 Pt declines shingles, Tdap vaccine Advance di rective discussed with patient 348654834 Z71.89 PT reports he has living will [facility] risk for falls 489317193 Z91.81 Secondary immune deficiency disorder 70541413 D84.9 T2DM Health Concerns Section Related Observation LastModified by Organization Detai ls LastModified Time None Recorded Concern Status LastModified by Organization Details LastModified Time None Recorded Advance Directives Directive None Recorded Payers Insurance Date Sequence Insurance Name Policy Number Policy [place] Covered Member ID [place] Member ID Guarantor Name 08/21/2021 3 [place] Toni Cardenas [id number] Toni Cardenas Meehan 08/27/2022 [facility] [employer] [facility] PRIOR TO 2022 - DUAL ELIGIBLE (MEDICARE REPLACEMENT/AD VANTAGE - HMO) Toni Cardenas Meehan [id number] Toni Cardenas Meehan 05/14/2021 1 [place] Toni Cardenas [id number] Toni Cardenas Meehan 08/21/2021 [place] [facility] Toni Cardenas [id number] Toni Cardenas Meehan 04/10/2021 1 [facility] [employer] - DOS PRIOR TO 2022 - DUAL ELIGIBLE (MEDICARE REPLACEMENT/AD VANTAGE - HMO) Toni Cardenas Meehan [id number] Toni Cardenas Meehan 01/05/2021 1 *SELF PAY* Rubén Cardenas Meehan 08/27/2022 1 [facility] (MEDICAID REPLACEMENT - HMO) Toni Cardenas [id number] Toni Cardenas Meehan 01/26/2021 1 [place] Toni Cardenas [id number] Toni Cardenas Meehan Notes Date Note Type Note Provider Name and Address Organization Details Recorded Time 01/05/2021 text/html ROS as noted in the [facility] 85-year-old male New patient. Patient is here to establish care. Patient reports recent relocation from [place]. He is accompanied by his daughter lela [...] colonoscopy:Annual: Eye Exam: Carmen Rick APRN [address], [address] 01/05/2021 15:27:02 01/12/2021 text/html ROS as noted in the [facility] 85-year-old male New patient. Patient is here to establish care. Patient reports recent relocation from [place]. He is accompanied by his daughter lela [...] retinopathy Carmen Rick APRN [address] [place], [address], [facility], [facility]. 01/12/2021 13:20:14 01/20/2021 text/html ROS as noted in the [facility] 85-year-old male New patient. Patient is here to establish care. Patient reports recent relocation from [place]. He is accompanied by his daughter lela at today's visit. Patient is reporting left ear pain for the past 3 weeks. Patient shares a had insect removed from ear at [facility]. Continues to have pain and itchiness. [...] retinopathy Carmen Rick APRN [address] [place], [address], [facility] 01/20/2021 14:35:26 04/10/2021 text/html ROS as noted in the [facility] 85-year-old male New patient. Patient is here to establish care. Patient reports recent relocation from [place]. He is accompanied by his daughter lela at today's visit. Patient is reporting left ear pain for the past 3 weeks. Patient shares a had insect removed from ear at [facility]. Continues to have pain and itchiness. [...] Exam: 03/25/20 - no retinopathy Carmen Rick, TUMBLER MACHINE OPERATOR [address] [place], [address], [facility] - [facility]. 04/13/2021 08:48:16 07/15/2021 text/html ROS as noted in the [facility] 85-year-old male New patient. Patient is here to establish care. Patient reports recent relocation from [place]. He is accompanied by his daughter lela [...] shares that he may be returning to [facility]. colonoscopy: GI referral initiatedAnnual:Eye Exam: 03/25/20 - no retinopathy Carmen Rick APRN [address] [place], [address], [facility] - [facility]. 07/16/2021 07:57:05
--- OUTSIDE RECORDS SUMMARY | 2025-07-09 16:06 | XMS_ITS | Patient Health Record ---
Author Organization [facility] Billing Info Address [address] [place] [address] Phone [phone] Care Team Providers Care Slitter Operator Name Role Phone Nadia Black Primary Care Provider Philomena SOSA MD, CRIS Unavailable [phone] Allergies No Known Allergies Reason For Referral [...] W/U Status Risk Notes Problem Urinary frequency (714346230) Urinary frequency (R35.0) Added On:2020 Active confirmed Problem Malignant tumor of prostate (978162948) Prostate cancer (C61) Added On:2020 Active confirmed Problem Urge incontinence of urine (74823191) Urge incontinence of urine (N39.41) Added On:2020 Active confirmed Plan Of Treatment No Information Insurance Providers Payer Name Payer Address Payer Phone Subscriber Number Group Number Insured Name Patient Relationship to Insured Coverage Start Date Coverage End Date [facility] CLAIMS [address] TELMA BOATENG [id number] Vel pichardo Toni Self - patient is the insured [address] [facility] [address] [place], [place] [id number] Vel pichardo Toni Self - patient is the insured 1 1 MEDICARE [place] PART B [address] [facility] TELMA GALINDO [id number] Sadavidal pichardo Toni Self - patient is the insured Medical (General) History Medical History History ICD Code Prostate cancer Diabetes mellitus Hypertension Hyperlipidemia Constipation UTI Hemriods Surgical History Surgery Date(Month/Year) prostate circumcision cataract surgery
--- OUTSIDE RECORDS SUMMARY | 2025-07-09 16:06 | XMS_ITS | Encounter Summary ---
Author Organization [employer] Address [address] [facility] [address] [place] [address] Care Team Providers Care Load Dropper Name Role Phone Jolly London MD Primary Care Provider [phone] Javier Benton PharmD Unavailable [phone] Reason for Visit * Reason Onset Date Comments chart prep 07/08/2025 Encounter Details Date Type Department Care Team ([facility] st Contact Info) Description 07/08/2025 Telephone [facility] [address] [place], [place] [phone] Jolly London MD [address] [place], [place] [phone] chart prep Social History Tobacco Use Types [...] encounter Miscellaneous Notes * Telephone Encounter - Leslie Hair [place] - 07/08/2025 1:02 PM EST Chart Prep Labs: not done Images: done Screenings: Not Applicable Vaccines due: Not Applicable Referrals: Vascular Requested notes by Fax. Waiting for notes. Echo 07/09/25 at 3 PM at [facility] Overdue care gaps: Glucose, Sbirt, and Oral Health documented in this encounter Plan of Treatment Upcoming Encounters Date Type Department Care Team (Late st Contact Info) Description 09/09/2025 1:00 PM EST Medication Management [facility] [address] [place] [address] Javier Benton, PharmD [address] [place] [address] documented as of this encounter Goals Goal [...] Care Plan Weekly blood pressure task No Cotto Parviz Patient has chronic kidney disease Care Plan Patient has chronic kidney disease No Cotto Parviz Patient has chronic kidney disease Care Plan Patient has chronic kidney disease No Cotto Parviz Weekly blood pressure task Care Plan Weekly blood pressure task No SloanDuglasa Weekly blood pressure task Care Plan Weekly blood pressure task No Sloan June Patient has chronic kidney disease Care Plan Patient has chronic kidney disease No Sloan June Patient has chronic kidney disease Care Plan Patient has chronic kidney disease No Sloan, June Weekly blood pressure task Care Plan Weekly blood pressure task No Javier Benton, PharmD Weekly blood pressure [...] blood pressure task No Elsy Sam, PharmD Weekly blood pressure task Care Plan [...] Plan Patient has chronic kidney disease No Jaiver Benton PharmD Patient has chronic kidney disease Care Plan Patient has chronic kidney disease No Javier Benton PharmD Weekly blood pressure task Care Plan Weekly blood pressure task No Leslie Hair MA Weekly blood pressure task Care Plan Weekly blood pressure task No Leslie Hair [place] Patient has chronic kidney disease Care Plan Patient has chronic kidney disease No Leslie Hair [place] Patient has chronic kidney disease Care Plan Patient has chronic kidney disease No Leslie Hair MA Weekly blood pressure task Care Plan Weekly blood pressure task No Leslie Hair MA Weekly blood pressure task Care Plan Weekly blood pressure task No Leslie Hair [place] Patient has chronic kidney disease Care Plan Patient has chronic kidney disease No Leslie Hair [place] Patient has chronic kidney disease Care Plan Patient has chronic kidney disease No Leslie Hair MA documented as of this encounter Visit Diagnoses [...] 06/24/2025 Patient has chronic kidney disease 06/24/2025 Weekly blood pressure task 07/08/2025 Weekly blood pressure task 07/08/2025 Patient has chronic kidney disease 07/08/2025 Patient has chronic kidney disease 07/08/2025 Weekly blood pressure task 07/08/2025 Weekly blood pressure task 07/08/2025 Patient has chronic kidney disease 07/08/2025 Patient has chronic kidney disease 07/08/2025 Assessment Noted Time PHQ-9 Depression Total Score: 1 08/13/19 25 3:11 PM EST documented as of this encounter Care Teams Load Dropper Relationship Specialty Start Date End Date Jolly London MD [address] [place] [address] PCP - General Family Medicine 06/29/12 Javier Benton, Marc [address] [place] [address] Pharmacist Internal Medicine 01/14/23 [facility] 04/21/25 documented as of this encounter
--- OUTSIDE RECORDS SUMMARY | 2025-07-09 16:06 | XMS_ITS | Encounter Summary ---
Author Organization [employer] Address [address] [facility] 7t [place] [address] Care Team Providers Care Benefits Technician Name Role Phone Jolly London MD Primary Care Provider [phone] Javier Benton PharmD Unavailable [phone] Encounter Details Date Type Department Care Team (Late st Contact Info) Description 02/28/2023 Orders Only [facility] [address] [place] [phone] Jolly London MD [address] [place] [phone] Anemia of chronic disorder (Primary Dx); Hyperkalemia [...] Description 09/09/2025 1:00 PM EST Medication Management [facility] [address] [place] [address] Javier Benton, PharmD [address] [place], [place] [phone] Scheduled Orders Name Type Priority Associated Diagnoses [...] documented as of this encounter Care Teams Benefits Technician Relationship Specialty Start Date End Date Jolly London MD [address] [place] [address] PCP - General Family Medicine 06/29/12 Javier Benton, PharmD [address] [place] [address] Pharmacist Internal Medicine 01/14/23 [facility] 04/21/25 documented as of this encounter
--- OUTSIDE RECORDS SUMMARY | 2025-07-09 16:06 | XMS_ITS | Encounter Summary ---
Author Organization [employer] Address [address] [facility] [address] [place] [address] Care Team Providers Care Baking Powder Mixer Name Role Phone Jolly London MD Primary Care Provider [phone] Javier Benton PharmD Unavailable [phone] Reason for Referral * Consultation (Routine) - Authorized Specialty Diagnoses / Procedures Referred By Contac t Referred To Contact Pharmacy Diagnoses Primary hypertension Type 2 diabetes mellitus with hyperglycemia, without long-term current use of insulin ([facility]) Jolly London MD [address] [place] [address] Phone: tel: fax: Referral ID Status Reason Start Date Expiration Date Visits Requested Visits Authorized [id number] Authorized Consult and Treat 02/05/2025 02/05/2026 6 6 Encounter Details Date Type Department Care Team (Late st Contact Info) Description 02/05/2025 Orders Only [facility] [address] [place], [place] [phone] Jolly London MD [address] [place], [place] [phone] Primary hypertension (Primary Dx); Type 2 diabetes [...] Medication Management [facility] [address] [place] [address] Javier Benton, PharmD [address] [place] [address] Scheduled Referrals Name Type Priority Associated Diagnoses Orde r Schedule Referral to Pharmacy CDTM Outpatient Referral Routine Primary hypertension Type 2 diabetes mellitus with hyperglycemia, without long-term current use of insulin ([facility]) Ordered: 02/05/2025 documented as of this encounter Goals Goal Patient Goal Type Associated Problems Recent Progress Patient-Stated? Author Blood Pressure < 140/90 Blood Pressure 128/60( 025 1:08 PM EST) Javier Mike PharmD documented as of this encounter Procedures [...] AM EDT Narrative 02/20/2025 11:58 AM EDT [address] [address] XRay Report Signed Patient: Toni Keys MR#: [id number] : 1935 Acct:[id number] Age/Sex: 89 / M ADM Date: 02/20/25 Loc: HO.ED Attending Dr: Ordering Physician: Moira Sanchez Date of Service: 02/20/25 Procedure(s): XR hip RT w PEL1V Accession Number(s): [id number] cc: Moira Sanchez; Jolly London MD EXAMINATION: [...] 02/20/25 1155 DD/ 1050 TD/TT: 02/20/25 1149 Test Facility Engineer: Procedure Note Jacquelin, Image - 02/20/2025 [place] [id number] XRay Report Signed Patient: Theresa MeehanToni MR#: [id number] : 8Acct:[id number] Age/Sex: 89 / MADM Date: 02/20/25 Loc: HO.ED Attending Dr: Ordering Physician: Moira Sanchez Date of Service: 02/20/25 Procedure(s): XR hip RT w PEL1V Accession Number(s): [id number] cc: Moira Sanchez; Jolly London MD EXAMINATION: [...] 02/20/25 1155 DD/ 1050 TD/TT: 02/20/25 1149 Test Facility Engineer: [facility] External Provider IMG [...] documented as of this encounter Care Teams Baking Powder Mixer Relationship Specialty Start Date End Date Jolly London MD [address] [place] [address] PCP - General Family Medicine 06/29/12 Javier Benton, AreliD [address] [place] [address] Pharmacist Internal Medicine 01/14/23 [facility] 04/21/25 documented as of this encounter
--- OUTSIDE RECORDS SUMMARY | 2025-07-09 16:06 | XMS_ITS | Data Portability ---
Author Organization [facility] [employer] [facility], Main Office Address [address], [address] [place] [address] Care Team Providers Care Central Office Installer Name Role Phone QUENTIN MORGAN - 2ND FLOOR OTHER Assessment Encounter Date Assessment Date Assessment LastModified by Organization Details LastModified Time 02/28/2024 02/28/2024 I have seen and examined the patient independently and confirmed the findings above with the MORNING BABYSITTER student note. Management plan discussed with the MORNING BABYSITTER student personally. [email or web address] Not available 02/28/2024 14:09:16 03/01/2024 03/01/2024 45 mins. spent on coordination of discharge [email or web address] Not available 03/01/2024 15:25:32 Plan of Treatment [...] and Address Organization Details Recorded Time Asthenia [id number] Active 2023 KHALIDA NESBITT NP [address] [facility], [address], [place], [address], [employer] 4 10:39:59 Acute nontraumati c kidney injury 2701420790141 03 Active 2023 KHALIDA NESBITT NP [address], [address], [place], [address], [facility] [employer] 4 10:40:05 Urinary tract infectious disease 54752093 Active 2023 KHALIDA NESBITT NP [address] [facility], [address], [place], [address], [email or web address] [facility] 4 10:40:12 Hypomagnese kaitlin 444607734 Active 2023 KHALIDA NESBITT NP [address] [facility], [address], [place], [address], [facility] [employer] [facility] 4 10:40:29 Malignant neoplasm of prostate 018328533 Active 2023 XRT KHALIDA NESBITT NP [address] [facility], [address], [place], [address], [facility] [employer] [facility] 4 10:41:04 Type 2 diabetes mellitus without complicatio n 614245465 Active 2023 KHALIDA NESBITT NP [address] [facility], [address], [place], [address], [employer] [facility] 4 10:42:06 Hypertensiv e disorder 64257873 Active 2023 KHALIDA NESBITT NP [address] [facility], [address], [place], [address], [email or web address] 4 10:42:13 Hyperlipide [facility] 58204967 Active 2023 KHALIDA NESBITT NP [address] [facility], [address], [place], [address], [email or web address] 4 10:42:18 Anemia 109770959 Active 2023 KHALIDA NESBITT NP [address] [facility], [address], [place], [address], [employer] [facility] 4 10:43:45 Problem Notes None recorded. Medical Equipment None Reported. Allergies Allergen ID Allergen Name Allergen Category Reaction Reaction Severity Criticality Documentation Date Start Date Code Code System Note Provider Name and Address Organization Details Recorded Time 73536 Keflex medicatio n Not available Not available Not available 02/22/2024 21679 7 RxNorm const ipati on KHALIDA NESBITT NP [address] [facility], [address], [place], [address], [employer] [facility] 4 10:22:19 76541 oxycodone medicatio n Not available Not available Not available 02/22/2024 7804 RxNorm vomit ing, shima chaudhry KHALIDA ENSBITT NP [address] [facility], [address], [place], [address], [email or web address] 4 10:22:37 44854 acetamino phen / oxycodone medicatio n Not available Not available Not available 02/22/2024 02093 3 RxNorm nause a, shima chaudhry KHALIDA NESBITT NP [address] [facility], [address], [place], [address], [email or web address] 4 10:22:55 Medications Not known to be on any medication Vitals Date Recorded Heart rate Respiratory rate Body temperature Systolic And Diastolic Provider Name and Address Organization Details Last Updated DateTime 02/22/2024 110 /min 20 /min 97.9 [degF] 98/62 mm[Hg] KHALIDA NESBITT NP [address] [facility], [address], [place], [address], [email or web address] 4 10:19:22 Date Recorded Heart rate Respiratory rate Body temperature Oxygen saturation Systolic And Diastolic Provider Name and Address Organization Details Last Updated DateTime 4 109 /min 18 /min 98.1 [degF] 97 % 110/60 mm[Hg] KHALIDA NESBITT NP [address] [facility], [address], [place], [address], [email or web address] 4 10:16:09 Date Recorded Systolic And Diastolic Provider Name and Address Organization Details Last Updated DateTime 02/25/2024 110/73 mm[Hg] Mayo Gomez MD [address] [facility], [address], [place], [address], [email or web address] 02/25/2024 16:04:57 Date Recorded Body height Body mass index (BMI) Body weight Respiratory rate Body temperature Oxygen saturation Systolic And Diastolic Provider Name and Address Organization Details Last Updated DateTime 4 157.48 cm 27.9 kg/m2 05441.8 4 g 18 /min 98.2 [degF] 96 % 150/81 mm[Hg] Mylene abrams [email or web address] 4 12:52:27 Date Recorded Body height Heart rate Respiratory rate Body temperature Oxygen saturation Systolic And Diastolic Provider Name and Address Organization Details Last Updated DateTime 157.48 cm 96 /min 18 /min 97.8 [degF] 95 % 132/68 mm[Hg] KHALIDA NESBITT NP [address] [facility], [address], [place], [address], [employer] [facility] 4 14:50:13 Social History Question Answer Notes LastModified by [employer] Details LastModified Time Tobacco Smoking Status Former Smoker quit over 10 yrs ago KHALIDA NESBITT NP [address] [facility], [address], [place], [address], [employer] [facility] 02/22/2024 11:06:58 What Is Your Code Status? Full Code [email or web address] Information not available 02/22/2024 Where Do You Live? Apartment Elevator, No Stairs. Brother Nearby Information not available 02/22/2024 Do You Have A Medical Power Of Developmental Behavioral Physician? Yes Has HCP [email or web address] Information not available 02/22/2024 What Was The Date Of Your Most Recent Tobacco Screening? 02/22/2024 Information not available 02/22/2024 Do You Have An Out Of Hospital DNR? No [email or web address] Information not available 02/22/2024 Have You Ever Been Counseled For Unhealthy Alcohol Use? No Information not available 02/22/2024 How Much Tobacco Do You Smoke? No [email or web address] Information not available 02/22/2024 Has Tobacco Cessation Counseling Been Provided? No Information not available 02/22/2024 Sex: Unknown Functional Status Question Answer Note LastModified by [employer] Details LastModified Time Do you use any illicit or recreational drugs? No [email or web address] Information not available 02/22/2024 Do you or have you ever used any other forms of tobacco or nicotine? No [email or web address] Information not available 02/22/2024 What is your level of alcohol consumption? Occasional Social [email or web address] Information not available 02/22/2024 Mental Status None recorded. Family History Nothing Reported Notes:N/A Medical History No medical history recorded. Past Encounters Encounter ID Performer Location Encounter Start Date Encounter Closed Date Diagnosis/Indication Diagnosis SNOMED-CT Code Diagnosis ICD10 Code Diagnosis IMO Codes Diagnosis Note [id number] KHALIDA NESBITT NP [facility] [address] [address] 02/22/2024 10:17:35 02/28/2024 14:23:59 Asthenia 78344474 R53.1 PT OT eval and tx. for reconditio klaudia, balance, strength, and gait trainingGo al is to return home. Hypomagnesemia 754434950 E83.42 Severe, <0.6 upon admit to hosp.Impro matias with supplement s and d/c of PPI.Discha rged on MagOx 800 mg tidPlan -Mg level q tuesday x 3Adjust dose prn Urinary tr act infectious disease 90247241 N39.0 ESBL E. ColiSeen by ID - now on ertapenem 1 gm IV qd x 10 days, last dose 813Contin ue phenazopyr idine 100 mg tid prnAdd probiotic 1 bid x 10 daysMonito r VS, lans, s/s infection. Maintain hydrationS till with moderate sx. but better than prior Acute nont raumatic kidney injury 7238416364 28805 N17.9 Improved with fluids and d/c of OTIS IMaintain fluidsMoni tor labs Type 2 lokesh betes mellitus without complication 658334369 E11.9 Continue metformin ER 750 mg bid, pioglitazo ne 45 mg qdCarb control dietPt. requesting BS TID AC, will orderMonit or Hypertensive disorder 38 642792 I10 Currently on norvasc 5 mg qdLisinopr il 40 mg qd stopped in hosp. due to AKIMonitor VS, labs, need to adjust meds/ Hyperlipidemia 99145145 E78.5 Continue atorvastat in 20 mg qdLabs prn Anemia 912982420 D64.9 Continue home meds:Fe SO4 325 mg qdVit C 500 mg qdB 12 1000 mcg qd Malignant neoplasm of prostate 834740520 C61 myrbetriq 50 mg qd Aspirin th erapy finding 211321042 Z79.82 unsure why he is currently takingwill continue ASA 81 mg qd for now [id number] KHALIDA NESBITT NP [facility] [address] [place] [address] 02/23/2024 10:13:03 02/28/2024 15:24:45 Asthenia 05800360 R53.1 PT OT eval and tx. for reconditio klaudia, balance, strength, and gait trainingGo al is to return home. Hypomagnesemia 278951145 E83.42 Severe, <0.6 upon admit to hosp.Impro matias with supplement s and d/c of PPI.Discha rged on MagOx 800 mg tidCurrent Mg level 02/21 = 1.9Plan -Mg level q tuesday x 3Adjust dose prn Urinary tr act infectious disease 76909836 N39.0 ESBL E. ColiSeen by ID - [...] than prior Acute nont raumatic kidney injury 1402924293 97010 N17.9 Improved with fluids and d/c of OTIS ICMP yesterday with K of 5.4Maintai n fluidsMoni tor labs - BMP q . x 3 Type 2 lokesh betes mellitus without complication 933668004 E11.9 Continue metformin ER 750 mg bid, pioglitazo ne 45 mg qdCarb control dietBS TID AC per pt. requestMon itor Hypertensive disorder 38 820347 I10 So far in good controlCur rently on norvasc 5 mg qd - continueLi sinopril 40 mg qd stopped in hosp. due to AKIMonitor VS, labs, need to adjust meds Hyperlipidemia 38274312 E78.5 Continue atorvastat in 20 mg qdLabs prn Anemia 242158438 D64.9 Continue home meds:Fe SO4 325 mg qdVit C 500 mg qdB 12 1000 mcg qd Malignant neoplasm of prostate 055395659 C61 myrbetriq 50 mg qd Aspirin th erapy finding 630711241 Z79.82 unsure why he is currently takingwill continue ASA 81 mg qd for now Tachycardia 4545521 R00. 0 HR running in low 100s here, regular rateAsympt omatic.Uns ure of baseline Plan -continue to monitor closelymai ntain po fluidstrea t infectiont rend labsconsid er metoprolol in place of norvasc to help reduce HR [id number] Mayo Gomez MD [address] [address] 02/25/2024 16:04:10 02/28/2024 15:54:08 Asthenia 34973133 R53.1 PT OT eval and treatmonit or fall risk and need for increased support in community Hypomagnesemia 400563558 E83.42 repleted in hospital now onMg supplement monitor lytes and need to titrate Urinary tr act infectious disease 69193679 N39.0 see HPIeval by ID and to complete course of ertapenema dd probioticm onitor for recurrent diseaseif dysuria continues repeat UA Acute nont raumatic kidney injury 3791626016 02737 N17.8 OTIS-I d/c'edmoni tor renal functionav oid nephrotoxi c meds as ablenephro consult prn Type 2 lokesh betes mellitus without complication 325893954 E11.9 metformin 750 mg bidpioglit azone 45 mg qdmonitor blood glucose prn and need to adjust medication Hypertensive disorder 38 897230 I10 OTIS-I d/c'edmain tained onnorvasc 5 mg qdmonitor bp and need to titrate Hyperlipidemia 52755650 E78.2 lipitor 20 mg qdcontinue d Anemia 470442837 D50.8 question anemia of chronic diseasemon itor cbciron studies prn Malignant neoplasm of prostate 371930356 C61 carrying dx added to PMHmaintai toney on myrbetriq 50 mg qdcontinue d Aspirin th erapy finding 999806388 Z79.82 unsure why he is currently takingwill continue ASA 81 mg qd for now [id number] KHALIDA NESBITT NP [facility] [address] 02/28/2024 12:37:20 02/29/2024 13:01:36 Urinary tract infectious disease 49611802 N39.0 Burning, dysuria finally improving; now minimal.LD IV ABT ertapenem today, consuelo. well.Curre ntly on: Myrbetriq 50 mg dailyCompl eted 3 days of sched. Phenazopyr idine 100 mg every 8 hours, prn order remains in place.Megan tor symptoms closely Acute nont raumatic kidney injury 5214875743 58823 N17.8 Remains off OTIS-inhibi torsavoid nephrotoxi c meds as ablemonito r renal functionne phro consult prn Hypomagnesemia 234764201 E83.42 Mg level on 02/27/24 2.6Reduce Mag Ox to 800 mg bidContinu e to monitor labs and need to titrate Asthenia 34912746 R53.1 DUMAS-low fall risk 02/22/24Cont inue PT OT, goal is to return homemonito r fall risk and need for increased support in community Type 2 lokesh betes mellitus without complication 475178389 E11.9 In good controlCon tinue:metf ormin 750 mg bidpioglit azone 45 mg qdmonitor blood glucose TID per pt request Hypertensive disorder 38 862008 I10 Remains off OTIS inhibitors managed with norvasc 5 mg qdContinue to monitor bp and need to titrate Anemia 252409607 D50.8 H+H stableAsym tptomaticF eSo4 325 mg dailyConti nue to monitor cbc Hyperlipidemia 89421094 E78.2 Continue lipitor 20 mg qdMonitor labs Malignant neoplasm of prostate 774928848 C61 carrying dx, PMHContinu e myrbetriq 50 mg qdMonitor sx Aspirin th erapy finding 071221965 Z79.82 unknown reason for takingCont inue ASA 81 mg qd for now Hyperkalemia 16984732 E8 7.5 02/27/24 K 5.8Not on OTIS I, ARBwas given Sodium Polystyren e Sulfonate Suspension 15 GM X 1Asymptoma ticMonitor Labs as outpt. [id number] KHALIDA NESBITT NP [address] [address] 03/01/2024 14:48:03 03/05/2024 15:25:14 Urinary tract infectious disease 33821856 N39.0 Burning, dysuria finally resolved.C ompleted IV ertapenem, consuelo. well.VSSLa bs stable Monitor symptoms closely as outpt. Hyperkalemia 08799332 E8 7.5 02/27/24 K 5.8, repeat 02/28 5.2Not on OTIS I, ARBEncoura ge fluidsMoni tor Labs as outpt. Acute nont raumatic kidney injury 5670639327 65017 N17.8 Remains off OTIS-inhibi torsavoid nephrotoxi c meds as ablemonito r renal function - still with mild elevation in Creat - 1.49 on 02/28Encour age po fluidsMoni tor as outpt. Hypomagnesemia 923618651 E83.42 Mg level on 02/27/24 2.6Reduced Mag Ox from 800 mg tid to 800 mg bidContinu e to monitor labs and need to titrate as outpt. Asthenia 66589714 R53.1 DUMAS-low fall risk 02/22/24Cont inue PT OT, meeting goals, home tomorrow with meds and services.m onitor fall risk and need for increased support in community Type 2 lokesh betes mellitus without complication 245841551 E11.9 In good control, 100s.Danisha nue:metfor min 750 mg bidpioglit azone 45 mg qdmonitor blood glucose TID per pt request Hypertensive disorder 38 431865 I10 Remains off OTIS inhibitors managed with norvasc 5 mg qdContinue to monitor bp and need to titrate Anemia 650575986 D50.8 H+H stableAsym tptomaticF eSo4 325 mg dailyStool s reported as dark, ? from oral Fe - monitorCon tinue to monitor cbc Hyperlipidemia 95008373 E78.2 Continue lipitor 20 mg qdMonitor labs Malignant neoplasm of prostate 198410837 C61 carrying dx, PMHContinu e myrbetriq 50 mg qdMonitor sx Aspirin th erapy finding 292085919 Z79.82 unknown reason for takingCont inue ASA [...] [facility] - DOS ON OR AFTER 2022 - MEDICARE ADVANTAGE [place] (MEDICARE REPLACEMENT/AD VANTAGE - PPO) Toni Meehan [id number] Toni Meehan Notes Date Note Type Note Provider Name and Address Organization Details Recorded Time 02/22/2024 text/html Toni is seen today for admission. He is an 88 yo male, admitted to [facility] 02/21/24 from [facility] for continued care and rehab after a brief hosp. due to low Mg., UTI, RONEY. He presented to [facility] 02/16 with weakness x 1 wk. and [...] NAD, appears much younger than stated age. 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 He is an 88 yo male, admitted to [facility] 02/21/24 from [facility] for continued care and rehab after a brief hosp. due to low Mg., UTI, RONEY. He presented to [facility] 02/16 with weakness x 1 wk. and [...] DM2, anemiaFull code KHALIDA NESBITT NP [address] [facility], [address], [place], [address], [facility] [employer] [facility] 02/23/2024 10:37:44 02/25/2024 text/html Patient is an 88 yo male admit from hospital after presenting with weakness, dysuria and flank pain. Noted low Mg, in ARF. Dx with UTI. PPI was held and started on Mg supplement. Eval by ID and started on ertapenem. 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 He is an 88 year old male who was admitted here on 02/21/24 after hospital visit for UTI and low Mg level. Requiring continued care and rehab due to IV antibiotics and deconditioning. Toni presented to [facility] on 02/16 with weakness, dysuria, and left [...] Upon exam, Toni is feeling much better. It Project Manager present. Minimal dysuria. Worried that he didn't pee yet today, but was able to pass urine this afternoon. Asked if he was drinking enough, and he wasn't sure. No other complaints. Moving bowels. DUMAS: low fall risk PMH: HTN, HLD, prostate CA s/p XRT, DM2, anemiaMOLST: Full code KHALIDA NESBITT NP [address] [facility], [address], [place], [address], [facility] [employer] [facility] 02/28/2024 16:12:08 03/01/2024 text/html ROS as noted in the HPI Toni is seen today for discharge. He is an 88 year old male who was admitted to [facility] on 02/21/24 after a hospital visit for UTI and low Mg level. He required continued care and rehab due to IV antibiotics and deconditioning. Toni presented to [facility] on 02/16 with weakness, dysuria, and left [...] Upon exam, Toni is feeling much better. It Project Manager present. No further dysuria. Denies feeling weak or dizzy. No SOB, cough, CP. No GI upset, taking po. Reports passing some dark BM, but no BRB. Happy to be returning home. DUMAS: low fall riskPMH: HTN, HLD, prostate CA s/p XRT, DM2, anemiaMOLST: Full code KHALIDA NESBITT NP [address] [facility], [address], [place], [address], [facility] [employer] 03/01/2024 15:25:48
--- OUTSIDE RECORDS SUMMARY | 2025-07-09 16:06 | XMS_ITS | Encounter Summary ---
Author Organization [employer] Address [address] [facility] [address] [place] [address] Care Team Providers Care Oil Program Compliance Specialist Name Role Phone Jolly London MD Primary Care Provider [phone] Javier Benton PharmD Unavailable [phone] Reason for Visit * Reason Onset Date Comments No Show 07/09/2025 Encounter Details Date Type Department Care Team ([facility] Contact Info) Description 07/09/2025 Telephone [facility] [address] [place], [place] [phone] Jolly London MD [address] [place], [place] [phone] No Show Social History Tobacco Use Types Packs/Day Years [...] encounter Miscellaneous Notes * Telephone Encounter - Sandra Oden - 07/09/2025 4:02 PM EST No show 07/09/25 documented in this encounter Plan of Treatment Upcoming Encounters Date Type Department Care Team (Late st Contact Info) Description 09/09/2025 1:00 PM EST Medication Management [facility] [address] [place] [address] Jaiver Benton, PharmD [address] [place] [address] documented as of this encounter Goals Goal [...] Weekly blood pressure task No Cotto Parviz Weekly blood pressure task Care Plan Weekly blood pressure task No Cotto Parviz Patient has chronic kidney disease Care Plan Patient has chronic kidney disease No Cotto Parviz Patient has chronic kidney disease Care Plan Patient has chronic kidney disease No Cotto Parivz Weekly blood pressure task Care Plan Weekly blood pressure task No Sloan June Weekly blood pressure task Care Plan Weekly blood pressure task No Sloan June Patient has chronic kidney disease Care Plan Patient has chronic kidney disease No Sloan, June Patient has chronic kidney disease Care Plan Patient has chronic kidney disease No Sloan June Weekly blood pressure task Care Plan [...] chronic kidney disease No Elsy Sam, PharmD Weekly blood pressure [...] Care Plan Weekly blood pressure task No Sandra Oden Weekly blood pressure task Care Plan Weekly blood pressure task No Sandra Oden Patient has chronic kidney disease Care Plan Patient has chronic kidney disease No Sandra Oden Patient has chronic kidney disease Care Plan Patient has chronic kidney disease No Sandra Oden documented as of this encounter Visit Diagnoses [...] kidney disease 07/08/2025 Weekly blood pressure task 07/09/2025 Weekly blood pressure task 07/09/2025 Patient has chronic kidney disease 07/09/2025 Patient has chronic kidney disease 07/09/2025 Assessment Noted Time PHQ-9 Depression Total Score: 1 08/13/19 25 3:11 PM EST documented as of this encounter Care Teams Oil Program Compliance Specialist Relationship Specialty Start Date End Date Jolly London MD [address] [place] [address] PCP - General Family Medicine 06/29/12 Javier Benton, AreliD [address] [place] [address] Pharmacist Internal Medicine 01/14/23 [facility] 04/21/25 documented as of this encounter
--- OUTSIDE RECORDS SUMMARY | 2025-07-09 16:06 | XMS_ITS | Encounter Summary ---
Author Organization [employer] Address [address] [facility] [address] [place] [address] Care Team Providers Care Welder Assistant Name Role Phone Jolly London MD Primary Care Provider [phone] Javier Benton PharmD Unavailable [phone] Encounter Details Date Type Department Care Team ([facility] st Contact Info) Description 12/14/2023 Orders Only [facility] [address] [place], [place] [phone] Jolly London MD [address] [place], [place] [phone] Social History Tobacco Use Types Packs/Day Years [...] Description 09/09/2025 1:00 PM EST Medication Management [facility] [address] [place] [address] Javier Benton, Marc [address] [place] [address] documented as of this encounter Goals Goal [...] documented as of this encounter Care Teams Welder Assistant Relationship Specialty Start Date End Date Jolly London MD [address] [place] [address] PCP - General Family Medicine 06/29/12 Javier Benton, AreliD [address] [place] [address] Pharmacist Internal Medicine 01/14/23 [facility] 04/21/25 documented as of this encounter
--- OUTSIDE RECORDS SUMMARY | 2025-07-09 16:06 | XMS_ITS | Encounter Summary ---
Author Organization [employer] Address [address] [facility] 7t [place] [address] Care Team Providers Care Laboratory Apparatus Glass Blower Name Role Phone Jolly [place] MD Primary Care Provider [phone] Javier [place] PharmD Unavailable [phone] Reason for Referral * Consultation (Routine) - Closed Specialty Diagnoses / Procedures Referred By Contac t Referred To Contact Audiology Diagnoses Sensorineural hearing loss, bilateral Jolly [place] MD [address] [place] [address] Phone: tel: fax: [facility] [address] Floor [place], [place] Phone: tel: fax: Referral ID Status Reason Start Date Expiration Date V isits Requested Visits Authorized [id number] Closed Specialty Services Required 10/10/2024 10/10/2025 1 1 Encounter Details Date Type Department Care Team (Late st Contact Info) Description 10/10/2024 Orders Only [facility] [address] [place], [place] [phone] Jolly [place] MD [address] [place], [place] [phone] Sensorineural hearing loss, bilateral (Primary Dx) Social [...] Description 09/09/2025 1:00 PM EST Medication Management [facility] [address] [place] [address] Javier [place], PharmD [address] [place] [address] Scheduled Referrals Name Type Priority Associated Diagnoses [...] documented as of this encounter Care Teams Laboratory Apparatus Glass Blower Relationship Specialty Start Date End Date Jolly [place] MD [address] [place] [address] PCP - General Family Medicine 06/29/12 Javier [place], AreliD [address] [place] [address] Pharmacist Internal Medicine 01/14/23 [facility] 04/21/25 documented as of this encounter
--- OUTSIDE RECORDS SUMMARY | 2025-07-09 16:06 | XMS_ITS | Encounter Summary ---
Author Organization [employer] Address [address] [facility] 7t [place] [address] Care Team Providers Care Order Desk Caller Name Role Phone Jolly [place] MD Primary Care Provider [phone] Javier [place] PharmD Unavailable [phone] Reason for Referral * Consultation (Urgent) - Closed Specialty Diagnoses / Procedures Referred By Contac t Referred To Contact Diagnoses Sensorineural hearing loss, bilateral Dizziness Jolly [place] MD [address] [place] [address] Phone: tel: fax: Fred Mann [address] [place] [address] Drive [address] [place], [place] [address] Phone: tel: fax: Referral ID Status Reason Start Date Expiration Date V isits Requested Visits Authorized [id number] Closed Specialty Services Required 10/10/2024 10/10/2025 1 1 Encounter Details Date Type Department Care Team (Late st Contact Info) Description 10/10/2024 Orders Only [facility] [address] [place], [place] [phone] Jolly [place] MD [address] [place], [place] [phone] Sensorineural hearing loss, bilateral (Primary Dx); Dizziness [...] Description 09/09/2025 1:00 PM EST Medication Management [facility] [address] [place] [address] Javier [place], PharmD [address] [place] [address] Scheduled Referrals Name Type Priority Associated Diagnoses [...] documented as of this encounter Care Teams Order Desk Caller Relationship Specialty Start Date End Date Jolly [place] MD [address] [place] [address] PCP - General Family Medicine 06/29/12 Javier [place], PharmD [address] [place] [address] Pharmacist Internal Medicine 01/14/23 [facility] 04/21/25 documented as of this encounter
--- OUTSIDE RECORDS SUMMARY | 2025-07-09 16:06 | XMS_ITS | Encounter Summary ---
Author Organization [employer] Address [address] [facility] 7t [place] [address] Care Team Providers Care Gas Meter Installer Name Role Phone Jolly [place] MD Primary Care Provider [phone] Jvaier Bentno PharmD Unavailable [phone] Reason for Visit * Reason Comments Med Refill Encounter Details Date Type Department Care Team ([facility] st Contact Info) Description 03/11/2024 Refill [facility] [address] [place], [place] [phone] Jolly [place] MD [address] [place], [place] [phone] Helicobacter pylori gastrointestinal tract infection Social History [...] Description 09/09/2025 1:00 PM EST Medication Management [facility] [address] [place] [address] Javier [place] PharmD [address] [place] [address] documented as of this encounter Goals Goal [...] documented as of this encounter Care Teams Gas Meter Installer Relationship Specialty Start Date End Date Jolly [place] MD [address] [place] [address] PCP - General Family Medicine 06/29/12 Javier [place], AreliD [address] [place] [phone] Pharmacist Internal Medicine 01/14/23 [facility] 04/21/25 documented as of this encounter
--- OUTSIDE RECORDS SUMMARY | 2025-07-09 16:06 | XMS_ITS | Encounter Summary ---
Author Organization [employer] Address [address] [facility] [address] [place] [address] Care Team Providers Care Timber Inspector Name Role Phone Jolly [place] MD Primary Care Provider [phone] Javier [place] PharmD Unavailable [phone] Reason for Visit * Reason Comments Med Refill Encounter Details Date Type Department Care Team (Late Contact Info) Description 10/14/2022 Refill [facility] [address] [place], [place] [phone] Ximena Harkins FNP Social History Tobacco Use [...] Description 09/09/2025 1:00 PM EST Medication Management [facility] [address] [place], [place] [phone] Javier [place], PharmD [address] [place], [place] [phone] documented as of this encounter Visit Diagnoses Not on filedocumented in this encounter Care Teams Timber Inspector Relationship Specialty Start Date End Date Jolly [place] MD [address] [place], [place] [phone] PCP - General Family Medicine 06/29/12 Javier [place], Marc [address] [place], [place] [phone] Pharmacist Internal Medicine 01/14/23 [facility] 04/21/25 documented as of this encounter
--- OUTSIDE RECORDS SUMMARY | 2025-07-09 16:07 | XMS_ITS | Encounter Summary ---
Author Organization [employer] Address [address] [facility] 7t [place] [address] Care Team Providers Care Construction Management Assistant Name Role Phone Jolly [place] MD Primary Care Provider [phone] Javier [place] PharmD Unavailable [phone] Encounter Details Date Type Department Care Team (Late st Contact Info) Description 06/07/2022 Abstract [facility] [address] [place] [phone] Jolly [place] MD [address] [place] [address] Social History Tobacco Use Types Packs/Day Years [...] Description 09/09/2025 1:00 PM EST Medication Management [facility] [address] [place] [phone] Javier [place], PharmD [address] [place] [address] documented as of this encounter Visit Diagnoses Not on filedocumented in this encounter Care Teams Construction Management Assistant Relationship Specialty Start Date End Date Jolly Lonod[place] MD [address] [place] [address] PCP - General Family Medicine 06/29/12 Javier [place], PharmD [address] [place] [address] Pharmacist Internal Medicine 01/14/23 [facility] 04/21/25 documented as of this encounter
--- OUTSIDE RECORDS SUMMARY | 2025-07-09 16:07 | XMS_ITS | Clinical Summary ---
Author Organization [employer] Address [address] [place] [address] 7[address] [place] [address] Care Team Providers Care Veterinary Virus Serum Inspector Name Role Phone Jolly Constantino MD Primary Care Provider [phone] Javier Benton PharmD Unavailable [phone] Allergies Active Allergy Reactions Criticality Noted Date [...] for pain 150 g 02/26/20 25 Active FREESTYLE LITE test stripIndication s:Type [...] 5 1:48 PM EST 06/20/20 25 Active Acetaminophen Extra Strength 500 MG tablet TAKE 1 TO 2 TABLETS BY MOUTH EVERY 8 HOURS NEEDED FOR PAIN OR FEVER. NO MORE THAN 6 TABLETS PER DAY 90 tablet 1 07/03/20 25 Active Ferrous Sulfate (iron) 325 (65 Fe) MG tablet TAKE 1 TABLET BY MOUTH TWICE DAILY IN THE MORNING AND AT BEDTIME 180 tablet 02/21/20 25 025 Discontinued(Re order (will not trigger notification to Pharmacy)) magnesium oxide (Mag-Ox) 400 MG tablet TAKE 1 TABLET BY MOUTH EVERYDAY AT NOON 90 tablet 02/21/20 25 025 Discontinued(Re order (will not trigger notification to Pharmacy)) acetaminophen (Tylenol Extra Strength) 500 MG tablet Take one or two tablets by mouth every 8 hours as needed for pain or fever. Maximum 6 tablets per day. 90 tablet 1 5 1:48 PM EST 03/04/20 25 025 Discontinued Active Problems Problem Noted Date [...] he prefers it to be delivered to [facility]. Will ask patient's manager care management if he can get a ride to DME supplier to cloth picker the stocking - negative DVT in [...] (03/04/2025 8:41 AM EDT): - Seen in [facility] on 09/17/24, questionable - patient claims that he did not have vision problem. However, he is high-risk for CVA / TIA - continue ASA - continue optimizing chronic disease management - continue working on lifestyle modificaitons Assessment & Plan (11/19/2024 4:11 PM EDT): - Seen in [facility] on 09/17/24, questionable - patient claims that he did not have vision problem. However, he is high-risk for CVA / TIA - continue ASA - continue optimizing chronic disease management - continue working on lifestyle modificaitons Assessment & Plan (09/28/2024 9:47 AM EDT): - Seen in [facility] on 09/17/24, questionable - patient claims [...] anemia. Elevated ferritin level. - Seen by driver supervisor in July 2023 - monitor - Continue current iron supplementation Assessment & Plan (11/19/2024 4:09 PM EDT): - Normocytic anemia. Elevated ferritin level. - Seen by driver supervisor in July 2023 - monitor - Continue current iron supplementation Assessment & Plan (08/13/2024 3:53 PM EST): - Normocytic anemia. Elevated ferritin level. - Seen by driver supervisor in July 2023 - monitor - Continue current iron supplementation Assessment & Plan (04/26/2024 10:33 AM EDT): - Normocytic anemia. Elevated ferritin level. - Seen by driver supervisor in July 2023 - monitor - Continue current iron supplementation Assessment & Plan (03/07/2024 3:45 PM EDT): - Normocytic anemia. Elevated ferritin level. - Seen by driver supervisor in July 2023 - monitor - Continue current iron supplementation Assessment & Plan (01/25/2024 5:10 PM EDT): - Normocytic anemia. Elevated ferritin level. - Seen by driver supervisor in July 2023 - monitor - Continue current iron supplementation Assessment & Plan (10/18/2023 1:00 PM EDT): - Normocytic anemia. Elevated ferritin level. - Seen by driver supervisor in July 2023 - monitor - Continue current iron supplementation Assessment & Plan (06/22/2023 5:49 AM EST): - Normocytic anemia. Elevated ferritin. - Seen by driver supervisor on 05/13/23 - monitor - Continue [...] eat healthier foods. Will refer him to [facility] department. Will write a letter to the [...] eat healthier foods. Will refer him to [facility] department. Will write a letter to the [...] 10:25 AM EST): - [facility], last seen in November 2024 -Discontinued Imipramine. -Continue mirabegron -Recently given a sample of Gemtesa -Treatment Hx: Previously on oxybutynin 5 mg which was changed to mirabegron when he went to [place] and was seen by an urologist there. Previously on imipramine, which was recommended to discontinue due to anticholinergic effect. Assessment & Plan (03/04/2025 8:38 AM EDT): - [facility] last seen in [facility] -Discontinued Imipramine. -Continue mirabegron -Recently given a sample of Gemtesa -Treatment Hx: Previously on oxybutynin 5 mg which was changed to mirabegron when he went to [place] and was seen by an urologist there. Previously on imipramine, which was recommended to discontinue due to anticholinergic effect. Assessment & Plan (11/19/2024 4:11 PM EDT): - [facility] last seen in Apr 2024 -Discontinued Imipramine. -Continue mirabegron -Recently given a sample of Gemtesa -Treatment Hx: Previously on oxybutynin 5 mg which was changed to mirabegron when he went to [place] and was seen by an urologist there. Previously on imipramine, which was recommended to discontinue due to anticholinergic effect. Assessment & Plan (08/13/2024 3:52 PM EST): - Following with Urologist [facility], last seen in Apr 2024 -Discontinued Imipramine. -Continue mirabegron -Recently given a sample of Gemtesa -Treatment Hx: Previously on oxybutynin 5 mg which was changed to mirabegron when he went to [place] and was seen by an urologist there. Previously on imipramine, which was recommended to discontinue due to anticholinergic effect. Assessment & Plan (04/29/2024 6:49 AM EDT): - [facility] with [facility], last seen in Apr 2024 -Discontinued Imipramine. -Continue mirabegron -Recently given a sample of Gemtesa -Treatment Hx: Previously on oxybutynin 5 mg which was changed to mirabegron when he went to [place] and was seen by an urologist there. Previously on imipramine, which was recommended to discontinue due to anticholinergic effect. Assessment & Plan (01/25/2024 5:07 PM EDT): - [facility] with [facility], last seen in November 2023 -Discontinued Imipramine. -Continue mirabegron -Treatment Hx: Previously on oxybutynin 5 mg which was changed to mirabegron when he went to [place] and was seen by an urologist there. Previously on imipramine, which was recommended to discontinue due to anticholinergic effect. Assessment & Plan (10/18/2023 1:22 PM EDT): - [facility] with [facility], last seen in July 2023 -Discontinue Imipramine. -Continue mirabegron -Treatment Hx: Previously on oxybutynin 5 mg which was changed to mirabegron when he went to [place] and was seen by an urologist there. Previously on imipramine, which was recommended to discontinue due to anticholinergic effect. Assessment & Plan (06/22/2023 5:42 AM EST): - [facility] with [facility], last seen on 02/11/2023 -Continue Imipramine. -Continue mirabegron -Treatment Hx: Previously on oxybutynin 5 mg which was changed to mirabegron when he went to [place] and was seen by an urologist there. Assessment & Plan (02/21/2023 5:12 AM EDT): - Following with Urologist, [facility], last seen on 02/11/2023 -Continue Imipramine. -Continue myrbetriq. -Treatment Hx: Previously on oxybutynin 5 mg which was changed to Mybetriq when he went to [place] and was seen by an urologist there. Assessment & Plan (11/09/2022 5:06 PM EDT): Following with Urologist, last seen on 10/2022, requested mote of the visit and it is pending at this time -Continue Imipramine. -Continue myrbetriq. -Treatment Hx: Previously on oxybutynin 5 mg which was changed to Mybetriq when he went to [place] and was seen by an urologist. Assessment & Plan (07/04/2022 5:07 AM EST): -Continue Imipramine. -Continue myrbetriq. -Treatment Hx: Previously on oxybutynin 5 mg which was changed to Mybetriq when he went to [place] and was seen by an urologist. Hypertension [...] 02/16/24, interrupted due to UTI Prostate cancer ([facility]) 11/13/2012 Assessment & Plan (05/28/2025 10:25 AM EST): Dx in 1992. s/p prostatectomy in 1992 in [place]. [facility]: [facility], last seen in November 2024 Hx [...] in 1992. s/p prostatectomy in 1992 in [place]. Urologist: [facility], last seen in November 2024 Hx [...] in 1992. s/p prostatectomy in 1992 [place]. Urologist: [facility], last seen in Apr [...] in 1992. s/p prostatectomy [place] 1992 [place] Urologist: [facility], last seen in Apr [...] in 1992. s/p prostatectomy [place] 1992 [place] Urologist: [facility], last seen in Apr [...] in 1992. s/p prostatectomy [place] 1992 [place] Urologist: [facility], last seen in Apr [...] in 1992. s/p prostatectomy [place] 1992 [place] Urologist: [facility], last seen in November [...] in 1992. s/p prostatectomy [place] 1992 [place] Urologist: [facility], last seen in November [...] in 1992. s/p prostatectomy in 1992 [place] Urologist: Dr. Brush, last seen in Apr [...] in 1992. s/p prostatectomy in 1992 [place] Urologist: Dr. Brush, last seen in 10/2022, [...] in 1992. s/p prostatectomy in 1992 [place]. [facility]ist: [facility], last seen in January 2023 Hx hypogonadism, neurogenic bladder, and recurrent UTI last UTI in 10/2022 last PSA 0.7 in 10/2022, increased from previous PSA Abd/pelvis CT recently showed no sign of recurrence per specialist Continue current treatment plan. Assessment & Plan (10/18/2023 1:23 PM EDT): Dx in 1992. [place]/p prostatectomy [place] 1992 [place]. [facility]rologist: [facility], last seen in [...] EDT): >>ASSESSMENT AND PLAN FOR PROSTATE CANCER ([facility]) WRITTEN ON 06/22/2023 12:44 PM BY JOLLY CONSTANTINO MD Dx in 1992. s/p prostatectomy in 1992 [place]. [facility]rologist: [facility], last seen in [...] Bone Scan appt and giving instruction in [place]. The media liaison officer has kindly agreed to do so. >>ASSESSMENT AND PLAN FOR HISTORY OF PROSTATE CANCER WRITTEN ON 06/22/2023 12:44 PM BY JOLLY CONSTANTINO MD Dx in 1992. s/p prostatectomy in 1992 [place]. [facility]rologist: [facility], last seen in [...] Bone Scan appt and giving instruction in [place]. The media liaison officer has kindly agreed to do so. [...] delivery service. Patient tried once, but preferred Lao foods to typical [place] foods. Patient is willing to try again. - currently going to [employer] for lunch as a part of service from [facility]. - discussed with patient's manager care management about getting a RDA who can cook for him and eat with him. Gastroesophageal reflux disease 01/07/2016 07/04/2022 Helicobacter pylori gastroin testinal tract infection 01/07/2016 01/25/2024 Encounters Date Type Department Care Team Description 07/09/2025 Telephone [facility] [place] [address] Jolly Constantino MD No Show 07/08/2025 Telephone [facility] [place] [address] Jolly Constantino MD chart prep 07/02/2025 Refill [facility] [place] [address] Jolly Constantino MD 06/24/2025 Travel 06/21/2025 Results Follow-Up [facility] [place] [address] [facility] Refill [facility] [place] [address] Jolly Constantino MD 06/10/2025 Telephone [facility] [place] [address] Jolly Constantino MD Durable Medical Equipment (Compression stockings) 05/30/2025 Telephone [facility] [place] [address] Jolly Constantino MD FYI 05/28/2025 Telephone [facility] [place] [address] Jolly Constantino MD Durable Medical Equipment (DME: Compression Stockings); Call Back Request 05/28/2025 Orders Only [facility] [place] [address] Jolly Constantino MD Primary hypertension (Primary Dx) 05/28/[address] [address] Jolly Constantino MD Medication Question 05/28/[address] [address] Jolly Constantino MD Durable Medical Equipment (DME: Compression Stocking ) 05/27/2025 9:00 AM EST Office Visit [address] [address] Jolly Constantino MD Primary hypertension (Primary Dx); At risk for falls; Dyslipidemia; Prostate cancer ([facility]/HCC) (HCC); Type 2 diabetes mellitus with hyperglycemia, without long-term current use of insulin ([facility]); Dependent edema; Dizziness; Tinnitus of both ears; Neurogenic bladder; Recurrent UTI; Anemia of chronic disease; Encounter for immunization; Scrotal swelling; Bilateral lower extremity edema 05/27/2025 Travel 05/24/[address] [address] Jolly Constantino MD chartprep 05/17/[address] [address] Jolly Constantino MD Order 05/13/2025 Orders Only GENERIC EXTERNAL DATA DEPARTMENT Provider, Generic External Data 05/09/[address] [address] Jolly Constantino MD Durable Medical Equipment 05/08/[address] [address] Nata Hogan RN 05/08/[address] [address] Nata Hogan, ANY 05/06/2025 5:20 PM EDT Office Visit [facility] [address] [place] [address] Tarah Faust FNP Dependent edema (Primary Dx) 05/06/2025 Travel 05/06/[address] [place] [address] Jolly Constantino MD Durable Medical Equipment (DME Request: Shower chair/Raised Toilet Seat) 05/06/2025 Telephone [facility] [place] [address] Jolly Constantino MD Appointment Request 04/30/[address] [place] [address] Jolly Constantino MD verbal orders 04/29/[address] [address] Jolly Constantino MD No Show 04/26/[address] [address] Jolly Constantino MD chartprep 04/25/[address] [address] [facility] 04/23/[address] [address] Kourtney Olguin, PharmD 04/20/[address] [address] Rebecca Hamm, DESEAN Type 2 diabetes mellitus with hyperglycemia, without long-term current use of insulin (HCC) 04/17/2025 Patient Outreach [address] [address] Jolly Constantino MD Transition Of Care (Tcm) (HDF-scheduled) 04/10/2025 Patient Outreach [address] [address] Jolly Constantino MD Pre-visit Planning (HDF unscheduled unable to LVM ) 04/10/[address] [address] Jolly Constantino MD Hospital Follow-up from Last [...] the past 12 months, has t he [employer], gas, oil or water company threatened to [...] Description 09/09/2025 1:00 PM EST Medication Management [facility] [address] [place] [address] Javier Benton, PharmD [address] [place], [place] [id number] Health Maintenance Due Date Last Done Comments [...] has chronic kidney disease No June Sloan Weekly blood pressure task [...] has chronic kidney disease No Sandra Oden Procedures Procedure Name Priority Date/Time Associated Diagnosis [...] current use of insulin (HCC) POCT GLUCOSE (CPT-78673) Routine 05/27/2025 9:08 AM EST Type 2 diabetes mellitus with hyperglycemia, without long-term current use of insulin ([facility]) GLUCOSE, WHOLE BLOOD Routine 05/13/2025 8:09 PM EDT VASC US LOWER EXTREMITY VENOUS DUPLEX BILATERAL Routine [...] URINE, ROUTINE Routine 05/13/2025 12:00 AM EDT ALBUMIN, RANDOM URINE W/CREATININE Routine 02/27/2025 2:39 PM EDT Type 2 diabetes mellitus with hyperglycemia, without long-term current use of insulin ([facility]) LIPID PANEL, STANDARD Routine 09/17/2024 1:26 PM [...] PM EST Narrative 06/19/2025 2:41 PM EST [place] [address] Ultrasound Report Signed Patient: Toni Keys MR#: [id number] : 1935 Acct:[id number] Age/Sex: 89 / M ADM Date: 06/19/25 Loc: HO.US Attending Dr: Jolly Constantino MD Ordering Physician: Jolly Constantino MD Date of Service: 06/19/25 Procedure(s): US scrotum Accession Number(s): [id number] cc: Jolly Constantino MD Reason for Exam: [...] by: Simón Aden MD 06/19/2025 02:38 PM [facility] Dictated By: Simón Aden MD Signed By: <Electronically signed by Simón Aden MD in OV> 06/19/25 1438 DD/ 1400 TD/TT: 06/19/25 1415 Child Welfare Manager: Procedure Note Donotuseinterpreter, Image - 06/19/[address] [address] Ultrasound Report Signed Patient: Toni Keys MR#: [id number] : 8Acct:[id number] Age/Sex: 89 / MADM Date: 06/19/25 Loc: HO.US Attending Dr: Jolly Constantino MD Ordering Physician: Jolly Constantino MD Date of Service: 06/19/25 Procedure(s): US scrotum Accession Number(s): [id number] cc: Jolly Constantino MD Reason for Exam: [...] 06/19/25 1438 DD/ 1400 TD/TT: 06/19/25 1415 Child Welfare Manager: Jolly Constantino MD IMG US PROCEDURES Final Result * Vascular US lower extremity venous insufficiency bilateral (06/19/2025 1:22 PM EST) 06/19/2025 1:22 PM [facility] - 06/19/2025 2:[address] [address] Ultrasound Report Signed Patient: Toni Keys MR#: [id number] : 1935 Acct:[id number] Age/Sex: 89 / M ADM Date: 06/19/25 Loc: .US Attending Dr: Jolly Constantino MD Ordering Physician: Jolly Constantino MD Date of Service: 06/19/25 Procedure(s): US venous insuf bilat Accession Number(s): [id number] cc: Jolly Constantino MD Reason for Exam: [...] by: Alin Hurt MD 06/19/2025 02:00 PM [facility] Dictated By: Alin Ko MD Signed By: <Electronically signed by Alin Corrales MD in OV> 06/19/25 1400 DD/ 1322 TD/TT: 06/19/25 1350 Child Welfare Manager: Procedure Note Donotuseinterpreter, Image - 06/19/2025 [place] [address] Ultrasound Report Signed Patient: Toni Keys MR#: [id number] : 8Acct:[id number] Age/Sex: 89 / MADM Date: 06/19/25 Loc: .US Attending Dr: Jolly Constantino MD Ordering Physician: Jolly Constantino MD Date of Service: 06/19/25 Procedure(s): US venous insuf bilat Accession Number(s): [id number] cc: Jolly Constantino MD Reason for Exam: [...] by: Alin Hurt MD 06/19/2025 02:00 PM [facility] Dictated By: Alin Ko MD Signed By: <Electronically signed by Alin Corrales MDin OV> 06/19/25 1400 DD/ 1322 TD/TT: 06/19/25 1350 Child Welfare Manager: us Jolly Constantino MD CV VASCULAR PROCEDURES Final Res ult [facility] [address] [place] [address] * (ABNORMAL) POCT glycosylated hemoglobin (Hgb A1c) [...] Media Lot # [id number] Lot# Expiration Date 3 Blood Capillary blood specimen / Unknown 05/27/2025 9:08 AM EST Jolly Constantino MD POINT OF CARE TEST ENTER/EDIT OR DERABLES Final Result * (ABNORMAL) Glucose, Whole Blood (05/13/2025 8:09 PM EDT) Glucose, Whole Blood 130(H) 60 - 115 mg/dL [facility] Comment:METER #: [id number] 05/13/2025 8:09 PM EDT 05/13/2025 8:12 PM EDT Generic External Data Provider LAB BLOOD ORDERAB LES Final Result [facility] [address] [place] [address] [phone] * VASC US Lower Extremity Venous Duplex Bilateral (05/13/2025 7:49 PM EDT) 05/13/2025 7:49 PM EDT Narrative [facility] - 05/13/2025 7:51 PM EDT [address] [address] Ultrasound Report Signed Patient: Toni Keys MR#: [id number] : 1935 Acct:[id number] Age/Sex: 89 / M ADM Date: 05/13/25 Loc: .ED Attending Dr: Ordering Physician: Uzair Hines DO Date of Service: 05/13/25 Procedure(s): US venous duplex LE BI Accession Number(s): [id number] cc: Jolly Constantino MD; Uzair Hines DO [...] in OV> 05/13/251949 DD/ 48 TD/TT: 05/13/251948 Child Welfare Manager: Procedure Note Donotuseinterpreter, Image - 05/13/[address] [address] Ultrasound Report Signed Patient: Toni Keys MR#: [id number] : 8Acct:[id number] Age/Sex: 89 / MADM Date: 05/13/25 Loc: .ED Attending Dr: Ordering Physician: Uzair Hines DO Date of Service: 05/13/25 Procedure(s): US venous duplex LE BI Accession Number(s): [id number] cc: Jolly Constantino MD; Uzair Hines DO [...] in OV> 05/13/251949 DD/ 48 TD/TT: 05/13/251948 Child Welfare Manager: us [facility] External Provider CV VASC ULAR PROCEDURES Final Result Performing Organization Address City/State/[facility] Co de Phone Number [facility] [address] [place] [address] * XR Chest 2 Views (05/13/2025 7:35 PM EDT) Anatomical Region Laterality Modality Chest Radiographic Edilia ging 05/13/2025 7:35 PM EDT Narrative 05/13/2025 7:37 PM EDT [address] [address] XRay Report Signed Patient: Toni Keys MR#: [id number] : 1935 Acct:[id number] Age/Sex: 89 / M ADM Date: 05/13/25 Loc: .ED Attending Dr: Ordering Physician: Uzair Hines DO Date of Service: 05/13/25 Procedure(s): XR chest 2V Accession Number(s): [id number] cc: Jolly Constantino MD; Uzair Hines DO [...] in OV> 05/13/251935 DD/ 34 TD/TT: 05/13/251934 Child Welfare Manager: Procedure Note Donotkatalinater, Image - 05/13/2025 [place] [address] XRay Report Signed Patient: Toni Keys MR#: [id number] : 1935cct:[id number] Age/Sex: 89 / MADM Date: 05/13/25 Loc: .ED Attending Dr: Ordering Physician: Uzair Hines DO Date of Service: 05/13/25 Procedure(s): XR chest 2V Accession Number(s): [id number] cc: Jolly Constantino MD; Uzair Hines DO [...] in OV> 05/13/251935 DD/ 34 TD/TT: 05/13/251934 Child Welfare Manager: [facility] External Provider IMG XR PROCEDURES Final Result * (ABNORMAL) Urinalysis, Complete, with Reflex to Culture (05/13/2025 2:26 PM EDT) Color Urine Yellow [facility] Appearance Urine Clear [facility] PH 6.5 5.0 - 9.0 [facility] Glucose Urine UA Negative Negative mg/dL [facility] Urine Blood Negative Negative [facility] Specific [place] - Urine 1.020 1.005 - 1.025 [facility] Urine Protein 30 (1+)(A) Neg-Trace mg/dL [facility] Urine Ketones Trace Negative mg/dL [facility] Nitrite Urine Negative Negative [facility] Leukocyte Esterase Urine Small (1+)(A) Negative [facility] RBC Urine 0-2 0 - 2 /HPF [facility] Urine WBC 6-10(A) 0 - 5 /HPF [facility] Urine Squamous Epithelial Cell 0-2 0 - 2 /HPF [facility] Urine Bacteria None Seen None Seen [facility] Hyaline Casts, Urine 0-2 0 - 2 /LPF [facility] 05/13/2025 2:26 PM EDT 05/13/2025 2:30 PM EDT Narrative [facility] - 05/13/2025 2:44 PM EDT Urine, Clean Catch us Generic External Data Provider LAB URINE ORDERAB LES Final Result [facility] [address] [place] [address] [phone] * NT-proBNP (05/13/2025 2:26 PM EDT) NT-proBNP 88.6 <300 pg/mL [facility] Comment:Reference Range:Age Group (years) NT-proBNP (pg/ml) InterpretationAll <300 Negative: HF unlikelyFor patients presenting to the ED with clinical suspicion ofnew onset or worsening HF, see below:18 to <50 >299.9 to <450.0 Grayzone: [id number] to 75 >299.9 to <900.0 other causes of>75 >299.9 to <1800.0 NT-proBNP [id number] to <50 >449.9 Positive: HF [id number] >899.9>75 >1799.9Note: Elevated NT-proBNP levels should be interpreted inthe context of other clinical information. 05/13/2025 2:26 PM EDT 05/13/2025 2:30 PM EDT us Generic External Data Provider LAB BLOOD ORDERAB LES Final Result [facility] [address] [place], [place] [phone] * (ABNORMAL) CBC auto differential (05/13/2025 2:26 PM EDT) White Blood Count 5.2 4.8 - 10.8 X10*3/uL [facility] Red Blood Count 3.59(L) 4.60 - 5.80 X10*6/uL [facility] Hemoglobin 9.7(L) 14.0 - 18.0 g/dl [facility] Hematocrit 30.7(L) 42.0 - 52.0 % [facility] Mean Corpuscular Volume 85.5 80.0 - 98.0 fL [facility] Mean Corpuscular Hemoglobin 27.0 27.0 - 33.0 pg [facility] Mean Corpuscular HGB Conc 31.6 31.0 - 36.0 g/dl [facility] Red Cell Distribution Width 18.0(H) 11.0 - 16.0 % [facility] Platelet Count 312 160 - 400 X10*3/uL [facility] Mean Platelet Volume 9.7 9.4 - 12.4 fL [facility] Neutrophils Percent Auto 79.8(H) 45 - 73 % [facility] Imm Gran Pct Auto 0.4 0.0 - 0.4 % [facility] Lymphocytes Percent Auto 7.8(L) 20 - 40 % [facility] Monocytes Percent Auto 10.3 2 - 11 % [facility] Eosinophils Percent Auto 1.1 0 - 4 % [facility] Basophils Percent Auto 0.6 0 - 2 % [facility] NRBC Pct Auto 0.0 0.0 - 0.2 /100WBC [facility] Neutrophils Absolute Auto 4.2 2.0 - 8.3 x10*3/uL [facility] Imm Gran Abs Auto 0.02 0.00 - 0.03 X10*3/uL [facility] Lymphocytes Absolute Auto 0.4(L) 1.2 - 4.9 X10*3/uL [facility] Monocytes Absolute Auto 0.5 0.1 - 1.2 X10*3/uL [facility] Eosinophils Absolute Auto 0.1 0.0 - 0.4 X10*3/uL [facility] Basophils Absolute Auto 0.0 0.0 - 0.2 X10*3/uL [facility] NRBC Abs Auto 0.000 0.0 - 0.012 X10*3/uL [facility] 05/13/2025 2:26 PM EDT 05/13/2025 2:30 PM EDT Generic External Data Provider LAB BLOOD ORDERAB LES Final Result Performing Organization Address [facility] de Phone Number [facility] [address] [place] [phone] * Magnesium (05/13/2025 2:26 PM EDT) [facility] Magnesium 1.8 1.6 - 2.6 mg/dL [facility] 05/13/2025 2:26 PM EDT 05/13/2025 2:30 PM EDT Generic External Data Provider LAB BLOOD ORDERAB LES Final Result Performing Organization Address [facility] de Phone Number [facility] [address] [place] [phone] * (ABNORMAL) Comprehensive Metabolic Panel (05/13/2025 2:26 PM EDT) Pathologist [facility] Sodium 140 135 - 145 mmol/L [facility] Potassium 4.5 3.3 - 5.1 mmol/L [facility] Chloride 108 96 - 108 mmol/L [facility] Carbon Dioxide 26 22 - 29 mmol/L [facility] Anion Gap 11(L) 12 - 20 [facility] Urea Nitrogen (BUN) 16 9 - 16 mg/dL [facility] Creatinine, Serum 0.89 0.5 - 1.4 mg/dL [facility] Creatinine Clr Calc Pharmacy 53.6 [facility] Comment:eGFR (calculated fro m the MDRD study equation) and eCrCl(calculated from the Cockcroft-Gault equation) are based ondifferent parameters and may not yield comparable results.If eCrCl result is absurd, please check patient'sheight/weight. Estimated Glomerular Filt Rate >60 [facility] Comment:Chronic Kidney Disea se: Estimated GFR < 60 mL/min/1.62w5Kglvwg Kidney Disease: Estimated GFR < 15 mL/min/1.73m2 Glucose 262(H) 60 - 115 mg/dL [facility] Calcium 8.9 8.4 - 10.2 mg/dL [facility] Bilirubin, Total 0.5 0.0 - 1.0 mg/dL [facility] Aspartate Amino Transferase 17 5 - 37 U/L [facility] Alanine Aminotransferase 9 0 - 40 U/L [facility] Total Protein 6.3(L) 6.5 - 8.0 g/dL [facility] Albumin Level 3.7 3.5 - 5.0 g/dL [facility] Alkaline Phosphatase 125(H) 39 - 117 U/L [facility] 05/13/2025 2:26 PM EDT 05/13/2025 2:30 PM EDT us Generic External Data Provider LAB BLOOD ORDERAB LES Final Result [facility] [address] [place] [phone] * Culture, Urine, Routine (05/13/2025 12:00 AM EDT) Urine Urine specimen obtained by clean catch procedure / Unknown 05/13/2025 05/13/2025 Comment:UACC Narrative [facility] - 05/15/2025 1:11 PM EDT Streptococcus viridans group Quant 10,000 to 50,000 cfu/mL Susc N/A Susceptibility not routinely performed on this isolate. Specimen Source: Urine clean catch us Generic External Data Provider LAB MICROBIOLOGY - GENERAL ORDERABLES Final Result Performing Organization Address [facility] Co de Phone Number [facility] [address] [place] [phone] * Albumin, Random Urine W/Creatinine (02/27/2025 2:39 PM EDT) Creatinine, Urine 74.26 mg/dL [facility] Microalbumin Urine 7.0 mg/L [facility] Microalbum Creatinine Ratio Ur 9.4 <30 ug/mg cr [facility] Comment:Albumin/Creatinine R atio Reference Ranges: Normal: < 30 ug/mg creatinine Microalbuminuria: 30 - 300 ug/mg creatinineClinical Albuminuria: > 300 ug/mg creatinine Urine 02/27/2025 2:39 PM EDT 02/27/2025 4:36 PM EDT us Jolly Constantino MD LAB URINE ORDERABLES Final Resul t Performing Organization Address [facility] Co de Phone Number [facility] [address] [place] [phone] * Lipid Panel, Standard (09/17/2024 1:26 PM EST) Triglycerides 120 <150 mg/dL [facility] Comment:Desirable Triglyceri de: less than 150 mg/dLBorderline High Triglyceride 150-199 mg/dLHigh Triglyceride: 200-499 mg/dLVery High Triglyceride: greater than or equal to 5OO mg/dL Cholesterol 113 <200 mg/dL [facility] Comment:Desirable Cholestero l: less than 200 mg/dLBorderline High Cholesterol: 200-239 mg/dLHigh Cholesterol: greater than 239 mg/dL LDL Cholesterol Calculated 47 <100 mg/dL [facility] Comment:Desirable LDL: less than 100 mg/dLNear Optimal/Above Optimal LDL: 110- 129 mg/dLBorderline High LDL: 130-159 mg/dLHigh LDL: 160-189 mg/dLVery High LDL: greater than or equal to 190 mg/dL HDL Cholesterol 42 >40 mg/dL [facility] Comment:Desirable HDL: great er than 40 mg/dL Note: This HDL assay may give artificially low results in patients with liver disease. 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
--- OUTSIDE RECORDS SUMMARY | 2025-07-09 16:07 | XMS_ITS | Encounter Summary ---
Author Organization [employer] Address [address] [facility] [address] [place] [address] Care Team Providers Care Heater Helper Name Role Phone Jolly London MD Primary Care Provider [phone] Javier Benton PharmD Unavailable [phone] Reason for Visit * Reason Onset Date Comments Hospital Follow-up 04/10/2025 Encounter Details Date Type Department Care Team ([facility] st Contact Info) Description 04/10/2025 Telephone [facility] MEDICINE [address] [place] [phone] Jolly London MD [address], [place] [phone] Hospital Follow-up Social History Tobacco Use Types [...] - 04/10/2025 10:28 AM EDT Tc from [place] with lokesh au requesting a HDF appt. [facility] Date of admission: Lokesh Pompey(04/04/2025) Discharge date: 04/11/2025 Diagnosed: Sacrum fracture *Send message to [facility] Coordinators Contact pt at [phone] documented in this encounter Plan of Treatment Upcoming Encounters Date Type Department Care Team ([facility] st Contact Info) Description 09/09/2025 1:00 PM EST Medication Management [facility] MEDICINE [address] [place] [address] Javier Benton, AreliD [address] [place] [address] documented as of this encounter Goals Goal Patient Goal Type Associated Problems Recent Progress Patient-Stated? Author Blood Pressure < 140/90 Blood Pressure 128/60( 025 1:08 PM EST) No Javier Benton, PharmD documented as of this encounter Visit Diagnoses Not on filedocumented in this encounter Additional Health Concerns Assessment Noted Time PHQ-9 Depression Total Score: 1 01/27/20 25 3:11 PM EST documented as of this encounter Care Teams Heater Helper Relationship Specialty Start Date End Date Jolly London MD [address] [place] [phone] PCP - General Family Medicine 06/29/12 Javier Benton PharmD [address] [place] [phone] Pharmacist Internal Medicine 01/14/23 [facility] 04/21/25 documented as of this encounter
== END ==
LOC: HO.CARD 14:51
PROVIDERS: PCP Family Medicine; Visit Provider Nurse Practitioner Family
DX: R60.9 Edema, unspecified (principal)
CPT/HCPCS: 93306

== ENCOUNTER → 2025-07-09 14:54 | Outpatient (BNV) | payer OTHER, SELFPAY | PROVIDERS: PCP Family Medicine; Visit Provider Internal Medicine Cardiovascular Disease | DX: I35.8 Other nonrheumatic aortic valve disorders (principal) | CPT/HCPCS: 93306 ==